=== PATIENT | male | born 1960 | race Caucasian/White ===

== ENCOUNTER → 2018-04-01 16:36 | Outpatient (CLI) | payer MEDICARE, SELFPAY ==
[2018-04-01 18:55] LABS: Free T4 (Free Thyroxine) 0.82 ng/dl (0.76-1.46); Thyroid Stimulating Hormone 20.22 uIU/ml (0.358-3.740)
[2018-04-05 13:29] LABS: Triiodothyronine (T3) Free 2.4 pg/mL (2.0-4.4)
== END ==
PROVIDERS: PCP Internal Medicine; Visit Provider Otolaryngology
DX: E03.9 Hypothyroidism, unspecified (principal); R22.1 Localized swelling, mass and lump, neck
CPT/HCPCS: 36415; 84439; 84443; 84481

== ENCOUNTER → 2018-10-11 11:54 | Outpatient (CLI) | payer MEDICARE, SELFPAY ==
[2018-10-11 15:56] LABS: Free T4 (Free Thyroxine) 1.25 ng/dl (0.76-1.46)
[2018-10-12 14:02] LABS: Triiodothyronine (T3) Free 3.1 pg/mL (2.0-4.4)
== END ==
PROVIDERS: Visit Provider Otolaryngology
DX: E03.9 Hypothyroidism, unspecified (principal)
CPT/HCPCS: 84439; 84443; 84481

== ENCOUNTER → 2018-10-30 13:06 | Outpatient (CLI) | payer MEDICARE, SELFPAY | PROVIDERS: PCP Internal Medicine; Visit Provider Otolaryngology | DX: G47.30 Sleep apnea, unspecified (principal) | CPT/HCPCS: 95806 ==

== ENCOUNTER → 2019-03-19 13:58 | Outpatient (CLI) | payer MEDICARE, SELFPAY | PROVIDERS: PCP Internal Medicine; Visit Provider Nurse Practitioner Family | DX: G47.30 Sleep apnea, unspecified (principal) | CPT/HCPCS: 94762 ==

== ENCOUNTER → 2019-06-05 12:50 | Outpatient (CLI) | payer MEDICARE, SELFPAY ==
--- NOTE | 2019-06-05 | ECG_ITS ---
APPROVED REPORT Exam: Resting ECG HR:66 bpm ECG Measurements Heart Rate 66 AXES MN 136 P 70 QRSd 92 QRS 101 QT 374 T -85 QTc 392 <Conclusion> Normal sinus rhythm Rightward axis ST & T wave abnormality, consider inferior ischemia Abnormal ECG Electronically signed by : Ministerio Odom, 06/06/2019 08:46:49
[2019-06-05 13:42] LABS: Basophils # 0.1 K/mm3 (0-0.2); Basophils % 0.6 % (0.1-2.0); Eosinophils # 0.2 K/mm3 (0.0-0.4); Eosinophils % 2.9 % (0.1-12.0); Hematocrit 43.2 % (42.0-52.0); Hemoglobin 14.9 g/dL (14.1-18.0); Lymphocytes # 3.1 K/mm3 (0.7-4.5); Mean Corpuscular HGB Conc 34.6 g/dL (31.8-35.4); Mean Corpuscular Hemoglobin 33.1 pg (27.0-31.2); Mean Corpuscular Volume 95.6 fl (80-94); Mean Platelet Volume 8.1 fl (7.4-10.4); Monocytes # 0.4 K/mm3 (0.1-1.0); Monocytes % 4.5 % (1.7-9.3); Neutrophils # 4.1 K/mm3 (1.8-7.8); Neutrophils % 51.9 % (37.0-80.0); Platelet Count 190 K/mm3 (142-424); Red Blood Count 4.51 M/mm3 (4.60-6.20); White Blood Count 7.8 K/mm3 (4.8-10.8)
[2019-06-05 15:07] LABS: Ferritin 154 ng/mL (8-388)
== END ==
PROVIDERS: Otolaryngology; Visit Provider Nurse Practitioner Family
DX: G47.33 Obstructive sleep apnea (adult) (pediatric) (principal); Z01.818 Encounter for other preprocedural examination; E83.10 Disorder of iron metabolism, unspecified
CPT/HCPCS: 36415; 82728; 85025; 93005

== ENCOUNTER → 2019-11-19 19:54 | Outpatient (CLI) | payer MEDICARE, SELFPAY | PROVIDERS: PCP Internal Medicine; Visit Provider Specialist | DX: G47.33 Obstructive sleep apnea (adult) (pediatric) (principal) | CPT/HCPCS: 95811 ==

== ENCOUNTER → 2019-11-20 14:37 | Outpatient (CLI) | payer MEDICARE, SELFPAY | PROVIDERS: PCP Internal Medicine; Visit Provider Internal Medicine Cardiovascular Disease | DX: R06.00 Dyspnea, unspecified | CPT/HCPCS: 36415; 83880; 93225 ==

== ENCOUNTER → 2019-11-28 13:30 | Outpatient (CLI) | payer MEDICARE, SELFPAY ==
--- NOTE | 2019-11-28 13:31 | CA_ITS ---
APPROVED REPORT EXAM: Comprehensive 2D, Doppler, and color-flow Echocardiogram It Programmer: Gisell Lopez RT(R) Ht: 5 ft 9 in Wt: 249lbs BSA: 2.27 BP: 128/78 mmHg Indications: CP, smoking, SOB, HTN, edema, hyperlipidemia, arrhythmia with sleep study 2D Dimensions LVOT 2.19 cm (M/F) 1.5-2.5 M-Mode Dimensions RVDd 1.79 cm (0.9-2.6) LVDd 5.91 cm (3.5-5.7) LVDs 4.38 cm (3.5-5.7) IVSd 0.98 cm (0.6-1.1) PWd 1.15 cm (0.6-1.1) EF (Teich) 50.10% FS 25.90% EDV (Teich) 173.90 mL ESV (Teich) 86.80 mL LV Diastology E/A Ratio 1.06 Mitral Valve MV A Velocity 54.00 (40-130 cm/s) Left Ventricle Left atrium is mildly enlarged, left ventricle is normal size, mild concentric left ventricular hypertrophy, borderline left ventricular systolic function, visually estimated ejection fraction 45 to 50% with no regional wall motion abnormality, grade 1 diastolic dysfunction seen without tissue Doppler evidence of raise left atrial pressure. Right Ventricle Right atrium and right ventricular mildly enlarged with normal contractility. Aortic Valve Aortic valve is minimally thickened and fibrosed. There is no aortic stenosis or aortic insufficiency. Mitral Valve Mitral valve is grossly normal, there is mild mitral regurgitation. Tricuspid Valve Tricuspid valve is grossly normal, there is mild tricuspid regurgitation, tricuspid regurgitation jet velocity is inadequate for calculation of the right ventricular systolic pressure. Pulmonic Valve Pulmonic valve is poorly visualized. Great Vessels Aortic root is normal size. Pericardium No significant pericardial effusion noted. Conclusion 1. Mild biatrial enlargement, normal left ventricular size, mild concentric left ventricular hypertrophy, borderline left ventricular systolic function, visually estimated ejection fraction of 45 to 50% with no regional wall motion abnormality, endocardial surfaces are poorly visualized, grade 1 diastolic dysfunction seen without tissue Doppler evidence of raise left atrial pressure. 2. Mildly enlarged right ventricle with normal contractility. 3. Mild mitral and tricuspid regurgitation. 4. No significant pericardial effusion noted. Electronically signed by : Rl Aparicio, 11/28/2019 14:22:48
--- NOTE | 2019-11-28 13:31 | US_ITS ---
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) Indications Claudication: Bilaterally Rest Pain: Bilaterally Current Smoker CAD Risk Factors Hypertension Hyperlipidemia Obesity Diabetes Current Smoker Pressures/Indices Right Indices Left Indices Brachial 138.00 mmHg Brachial 131.00 mmHg Low Thigh 133.00 mmHg 0.96 Low Thigh 117.00 mmHg 0.85 Calf 139.00 mmHg 1.01 Calf 132.00 mmHg 0.96 Ankle(PT) 153.00 mmHg 1.11 Ankle(PT) 127.00 mmHg 0.92 Ankle(DP) 149.00 mmHg 1.08 Ankle(DP) 137.00 mmHg 0.99 Digit 130.00 mmHg 0.94 Digit 125.00 mmHg 0.91 Findings RT JIMBO=1.1 LT JIMBO=0.9 RT TBI=0.9 LT TBI=0.9 Normal waveforms bilaterally Diminished pulses left lower extremity Conclusion No evidence significant arterial disease throughout the right and left lower extremities as evidenced by normal resting PVR waveforms and normal resting indices. Electronically signed by : David Michael MD 11/28/2019 14:47:35
== END ==
PROVIDERS: PCP Internal Medicine; Visit Provider Internal Medicine Cardiovascular Disease
DX: E11.9 Type 2 diabetes mellitus without complications (principal); E78.5 Hyperlipidemia, unspecified; I73.9 Peripheral vascular disease, unspecified; I10 Essential (primary) hypertension; I20.9 Angina pectoris, unspecified; I49.9 Cardiac arrhythmia, unspecified; R06.00 Dyspnea, unspecified; G47.33 Obstructive sleep apnea (adult) (pediatric); Z86.39 Personal history of other endocrine, nutritional and metabolic disease; Z79.84 Long term (current) use of oral hypoglycemic drugs
CPT/HCPCS: 93306; 93923

== ENCOUNTER → 2019-11-28 13:33 | Outpatient (CLI) | payer SELFPAY ==
--- NOTE | 2019-11-28 14:21 | CT_ITS ---
PROCEDURE: CT HEART W CALCIUM SCORE CLINICAL HISTORY: arrhthymia cp/dyspnea COMPARISON: No exams were available for comparison TECHNIQUE: Axial images obtained with sagittal and coronal reformats. All CT scans at the facility use one or more dose reduction, viz: automated exposure control, ma/kV adjustment per patient size (including targeted exams where dose is matched to indication, i.e. head), or iterative reconstruction technique. FINDINGS: The coronary artery calcium score is 2523 indicating extensive calcific plaque burden with very high cardiovascular disease risk. There is evidence of old granulomatous disease. Fibrotic changes are present in the lower lobes. Upper abdominal images show increased soft tissue density in the mid abdominal region. This may represent partial volume averaging from the pancreas and could be confirmed with unenhanced abdomen CT. This is slightly high for the body of the pancreas to be located IMPRESSION: . 1. Extensive calcific plaque burden with very high cardiovascular disease risk. 2. Increased soft tissue density in the upper abdomen possibly related to superior location of the body of the pancreas versus abdominal mass. Consider CT scan of the abdomen for further evaluation. Dictated by: David Michael MD 12/01/2019 15:14 Electronically signed by David Michael MD in [facility] 12/01/2019 15:14
== END ==
PROVIDERS: PCP Internal Medicine; Visit Provider Internal Medicine Cardiovascular Disease
DX: Z13.6 Encounter for screening for cardiovascular disorders (principal); E11.9 Type 2 diabetes mellitus without complications; E78.5 Hyperlipidemia, unspecified; G47.33 Obstructive sleep apnea (adult) (pediatric); I10 Essential (primary) hypertension; I20.9 Angina pectoris, unspecified; I49.9 Cardiac arrhythmia, unspecified; R06.00 Dyspnea, unspecified; Z86.39 Personal history of other endocrine, nutritional and metabolic disease
CPT/HCPCS: 75571

== ENCOUNTER → 2019-12-05 12:11 | Outpatient (CLI) | payer MEDICARE, SELFPAY ==
--- NOTE | 2019-12-05 12:18 | CT_ITS ---
PROCEDURE: CT ABDOMEN WO CON CLINICAL HISTORY: soft tissue density vs abd mass on recent CT chest Follow-up abnormal CT scan. Possible pancreatic mass COMPARISON: CT HEART W CALCIUM SCORE from 11/28/2019 TECHNIQUE: Axial images obtained with sagittal and coronal reformats. All CT scans at the facility use one or more dose reduction, viz: automated exposure control, ma/kV adjustment per patient size (including targeted exams where dose is matched to indication, i.e. head), or iterative reconstruction technique. FINDINGS: COPD in the lung bases. There are some atelectatic or fibrotic changes in the lingula. Coronary artery calcifications are present. There is mild hepatomegaly at 26 cm cephalad caudad. No focal liver lesion demonstrated. The spleen, adrenal glands, gallbladder, and pancreas have an unremarkable appearance. The soft tissue density noted in the upper abdomen on the coronary artery CT represents a slightly high position of the body of the pancreas. No obvious mass. There is a 3 mm nonobstructing stone in the mid polar region of the left kidney. There are few small retroperitoneal and portal lymph nodes which are nonspecific. There are postsurgical changes of the lumbar spine IMPRESSION: No acute finding. No evidence of pancreatic mass. Hepatomegaly. Nonobstructing left renal stone Dictated by: David Michael MD 12/07/2019 07:31 Electronically signed by David Michael MD in [facility] 12/07/2019 07:31
== END ==
PROVIDERS: PCP Internal Medicine; Visit Provider Internal Medicine Cardiovascular Disease
DX: R19.00 Intra-abdominal and pelvic swelling, mass and lump, unspecified site (principal)
CPT/HCPCS: 74150

== ENCOUNTER → 2020-07-14 09:42 | Outpatient (CLI) | payer MEDICARE, SELFPAY ==
[2020-07-14 10:35] VITALS: PULSE 71; PULSE 74
--- NOTE | 2020-07-14 11:09 | XR_ITS ---
PROCEDURE: XR CHEST 2V CLINICAL HISTORY: shortness of breath, wheezing, tobacco use, cough COMPARISON: No exams were available for comparison FINDINGS: The cardiomediastinal silhouette and pulmonary vascularity are within normal limits. There is hyperinflation with some attenuation of the peripheral pulmonary vessels consistent with COPD. No lobar consolidation or collapse. No acute bony abnormalities. IMPRESSION: Changes of COPD Dictated by: David Michael MD 07/14/2020 16:44 David Michael MD in [facility] 07/14/2020 16:44
== END ==
PROVIDERS: PCP Internal Medicine; Visit Provider Nurse Practitioner Family
DX: G47.33 Obstructive sleep apnea (adult) (pediatric) (principal); R05 Cough; R06.02 Shortness of breath; R06.2 Wheezing; Z72.0 Tobacco use
CPT/HCPCS: 71046; 94060; 94618; 94640; 94726; 94729; 94762

== ENCOUNTER → 2020-07-26 12:12 | Outpatient (CLI) | payer MEDICARE, SELFPAY ==
[2020-07-26 13:41] LABS: Free T4 (Free Thyroxine) 1.86 ng/dl (0.78-2.19)
[2020-07-26 13:55] LABS: Thyroid Stimulating Hormone 0.12 uIU/mL (0.465-4.68)
== END ==
PROVIDERS: Visit Provider Otolaryngology
DX: I49.9 Cardiac arrhythmia, unspecified (principal)
CPT/HCPCS: 36415; 84439; 84443

== ENCOUNTER → 2020-08-25 10:11 | Outpatient (CLI) | payer MEDICARE, SELFPAY ==
--- NOTE | 2020-08-25 | ECG_ITS ---
APPROVED REPORT Exam: Resting ECG HR:78 bpm ECG Measurements Heart Rate 78 AXES ND 170 P 83 QRSd 92 QRS 93 QT 370 T 55 QTc 421 Conclusion Normal sinus rhythm Rightward axis Borderline ECG Electronically signed by : Bandar Elmore, 08/25/2020 16:01:09
[2020-08-25 10:30] LABS: Basophils % 0.5 % (0.1-2.0); Eosinophils # 0.2 K/mm3 (0.0-0.4); Eosinophils % 2.3 % (0.1-12.0); Hematocrit 47.2 % (42.0-52.0); Lymphocytes % 24.8 % (10-50); Mean Corpuscular HGB Conc 31.9 g/dL (31.8-35.4); Mean Corpuscular Hemoglobin 30.6 pg (27.0-31.2); Mean Corpuscular Volume 95.9 fl (80-94); Mean Platelet Volume 8.1 fl (7.4-10.4); Monocytes # 0.5 K/mm3 (0.1-1.0); Monocytes % 5.9 % (1.7-9.3); Neutrophils # 5.4 K/mm3 (1.8-7.8); Neutrophils % 66.5 % (37.0-80.0); Platelet Count 157 K/mm3 (142-424); Red Blood Count 4.92 M/mm3 (4.60-6.20); Red Cell Distribution Width 14.2 % (11.5-17.5); White Blood Count 8.2 K/mm3 (4.8-10.8)
[2020-08-25 11:48] LABS: Anion Gap 15.4 mEq/L (5-15); Blood Urea Nitrogen 19 mg/dl (9-20); Calcium 9.8 mg/dl (8.4-10.2); Carbon Dioxide 26 mmol/L (22.0-30.0); Chloride 100 mmol/L (98-107); Estimated Glomerular Filt Rate 69 ml/min (>60); GFR (African American) 83 ML/MIN (>60); Glucose 285 mg/dl (74-100); Potassium 4.4 mmoL/L (3.5-5.1); Sodium 137 mmol/L (136-145)
[2020-08-25 15:04] LABS: Coronavirus 19 IgG Antibody Negative (Negative)
[2020-08-25 15:08] LABS: Coronavirus 19 IgM Antibody Positive (Negative)
[2020-08-25 17:19] LABS: Adenovirus,PCR Not Detected (NotDetected); Bordetella Pertussis Not Detected (NotDetected); Chlamydophila Pneumoniae, PCR Not Detected (NotDetected); Coronavirus 19, PCR Not Detected (NotDetected); Coronavirus 229E Not Detected (NotDetected); Coronavirus NL63 Not Detected (NotDetected); Coronavirus OC43 Not Detected (NotDetected); Coronovirus HKU1,PCR Not Detected (NotDetected); Human Metapneumovirus Not Detected (NotDetected); Influenza A, PCR Not Detected (NotDetected); Influenza AH1, 2009 Not Detected (NotDetected); Influenza AH1, PCR Not Detected (NotDetected); Influenza AH3,PCR Not Detected (NotDetected); Influenza B, PCR Not Detected (NotDetected); Mycoplasma Pneumoniae, PCR Not Detected (NotDetected); Parainfluenza 1, PCR Not Detected (NotDetected); Parainfluenza 2, PCR Not Detected (NotDetected); Parainfluenza 3, PCR Not Detected (NotDetected); Parainfluenza 4, PCR Not Detected (NotDetected); Respiratory Syncytial Virus Not Detected (NotDetected); Rhinovirus/Enterovirus Not Detected (NotDetected)
== END ==
PROVIDERS: PCP Internal Medicine; Visit Provider Otolaryngology
DX: Z01.818 Encounter for other preprocedural examination (principal); Q38.6 Other congenital malformations of mouth
CPT/HCPCS: 36415; 80048; 85025; 86328; 87581; 87633; 87798; 93005; U0003

== ENCOUNTER 2020-08-26 06:39 | Day surgery (SDC) | payer MEDICARE, SELFPAY ==
[2020-08-23 15:03] VITALS: BMI 35.6
[2020-08-26] VITALS (10 sets, daily range): BP systolic 118–142; BP diastolic 54–82; PULSE 69–84; RESP 16–18; TEMP 36.4–36.8; O2SAT 92–99
--- NOTE | 2020-08-26 08:43 | P.OP_ITS ---
Date of procedure: 08/26/20 Pre-op Diagnosis:: 1. Obstructive sleep apnea 2. Thickened elongated uvula 3. Ptosis free edge of soft palate Post-op Diagnosis:: same Procedure performed:: 1. Excision uvula 2. Uvulopalatopharyngoplasty (UPPP) Surgeon:: Adam Lopez MD ANNUAL GIVING DIRECTOR:: Cameron Holguin Anesthesia: GETA Estimated blood loss (mL): 5 Operative findings:: same Operative note:: With the patient under general anesthesia the Duran Davide gag was inserted. The uvula was examined and was extremely thickened and elongated. Using the harmonic scalpel the uvula was removed in entirety and submitted. The free edge of the soft palate was sagging on each side and accordingly using the harmonic scalpel the mucosal edges were excised on each side. Using a 2-0 Vicryl the free edges of the soft palate on each side were sewn together and the ptosis of the free edge of the soft palate was corrected. The base of the uvula where the uvula had been excised was repaired with 2-0 Vicryl. Bloodloss for all the procedure was less than 5 cc and stopped with suction cautery prior to the surgical repair. The patient tolerated procedure well was sent to recovery in good general condition. Condition: stable Disposition: PACU Complications:: none
--- NOTE | 2020-08-26 08:52 | HMH.ANESCL ---
[facility] Anesthesia Checklist - Patient Identification Patient Identification: Arm Band - Structural Data Admitted From: Home Planned Operative Procedure/s: Uvulectomy and Uvulopalatopharyngoplasty Consent for Planned Operative Procedure(s) Verified: Yes Verified Documents: Surgical Consent, History and Physical - NPO Status Verified Time NPO: 00:00 - Additional verifications Anesthesia Reactions: No Hx Blood Transfusions: No Blood Transfusion Reaction: No - Airway Assessment C-Spine Mobility Assessed: Yes (mp2) TMJ Mobility Assessed: Yes Dentition: Edentulous - Neurological Assessment Level of Consciousness: Awake, Alert - Anesthesia Plan Anesthesia Risk discussed: Yes Anesthesia Plan: Verified ASA Class: III Anesthesia Type: General [facility] History I have reviewed the patient's past medical history: Yes Medical History: Reports:: Depression, Diabetes Mellitus Type 2, Hyperlipidemia, Hypertension, MRSA (2017), Seizures Denies:: Cancer, Diabetes Mellitus Type 1, Internal Pacemaker *Have you ever received a pneumonia vaccine?: Yes *Have you received a flu vaccine this season?: No Other Medical History: Reports: Arthritis, Thyroid Disease, Other. Denies: Blood Transfusion Reaction Anesthesia experience/problems:: nac Laterality Cases: Right: Arthroscopy Shoulder, Bilateral: Carpal Tunnel Release Other Surgeries: Yes: Appendectomy, Cardiac Catheterization, Colonoscopy, EGD, Other. No: Pacemaker Amputation: No Fractures: No - *Social History Last grade of school completed: High school graduate Smoking Status: Current every day smoker Tobacco Type: cigarettes # Packs/Day (cigarettes): 2 #Yrs smoked (if former smoker): 40 Alcohol Intake: current Alcohol Intake Frequency:: holidays/special occasions only Substance Use Type: denies use *Occupational Status:: disabled Housing: house Household Members: spouse *Travel in the last 8 weeks: None - Psychiatric History Pschychiatric History:: Reports:: Depression Family Hx:: Coronary Artery Disease, Cancer
--- NOTE | 2020-08-26 08:53 | HMH.ANESI ---
[facility] Anesthesia Record Part I Intake, IV Amount: 900 Estimated blood loss (mL): 5 Urine output (mL): 0 Blood Pressure: 142/81 SaO2: 96 Pulse Rate: 84 Respiratory Rate: 16 Temperature: 97.5 F Patient is:: Drowsy, Stable Stable to PACU at:: 08:50
[2020-08-26 09:05] LABS: POC Glucose,Bedside 195 (70-110)
--- NOTE | 2020-08-27 06:34 | HMH.ANESII ---
[facility] Anesthesia Record Part II Discharge Time: 09:20 Destination: Surgical Day Care (OP Surgery) PACU nurse assessment reviewed?: Yes Patient Condition:: Good Anesthesia Complications:: None Swallowing reflex intact?: Yes Cyanosis?: No Blood Pressure: 130/54 Pulse Rate: 75 Temperature: 98.2 F Mental Status: Alert & Oriented Pain level:: 8 Nausea and/or vomitting:: None Intake, IV Amount: 25
[2020-08-27 06:35] VITALS: BP 130/54; PULSE 75; TEMP 36.8
[2020-08-27 07:16] LABS: POC Glucose,Bedside 225 (70-110)
== END 2020-08-26 10:06 | disposition home or self-care (01) ==
LOC: OR 06:40
PROVIDERS: PCP Internal Medicine; Visit Provider Otolaryngology
PROC: (CPT 42140; principal; 2020-08-26 08:30)
DX: G47.33 Obstructive sleep apnea (adult) (pediatric) (principal); K13.29 Other disturbances of oral epithelium, including tongue; E11.9 Type 2 diabetes mellitus without complications; E78.5 Hyperlipidemia, unspecified; I10 Essential (primary) hypertension; R56.9 Unspecified convulsions; Z86.14 Personal history of Methicillin resistant Staphylococcus aureus infection; F32.9 Major depressive disorder, single episode, unspecified; M19.90 Unspecified osteoarthritis, unspecified site; E07.9 Disorder of thyroid, unspecified; Z87.39 Personal history of other diseases of the musculoskeletal system and connective tissue; Z90.49 Acquired absence of other specified parts of digestive tract
CPT/HCPCS: 42140; 42145; 82962; 88302; 96374; 96375; J2405

== ENCOUNTER → 2021-01-21 08:28 | Outpatient (CLI) | payer MEDICARE, SELFPAY ==
--- NOTE | 2021-01-21 08:29 | CA_ITS ---
APPROVED REPORT EXAM: Comprehensive 2D, Doppler, and color-flow Echocardiogram [place] Erector: Ruth Ann Emmanuel CRT Ht: 5 ft 9 in Wt: 245lbs BSA: 2.25 BP: 125/73 mmHg Indications: Shortness of Breath, Obesity, Palpitations, CAD, Hyperlipidemia, Hypertension/HDD 2D Dimensions LVOT 2.03 cm (M/F) 1.5-2.5 M-Mode Dimensions RVDd 2.31 cm (0.9-2.6) LA Diam 4.09 cm (1.9-4.0) LVDd 6.02 cm (3.5-5.7) Ao Diam 3.92 cm (2.0-3.7) LVDs 4.13 cm (3.5-5.7) IVSd 1.20 cm (0.6-1.1) PWd 0.78 cm (0.6-1.1) EF (Teich) 58.40% FS 31.40% EDV (Teich) 181.40 mL TAPSE 2.54 (<1.7) ESV (Teich) 75.50 mL LV Diastology E Decel Time 160.00 (160-240 msec) E/A Ratio 0.34 MED E' 10.10 (< 7 cm/sec) MED A' 13.80 cm/s E'/MED E' Ratio 6.91 (>14) LAT E' 10.20 (<10 cm/sec) LAT A' 7.60 cm/s E/LAT E' Ratio 6.84 (>14) Aortic Valve AO Peak GR. 6.40 mmHg Mitral Valve MV A Velocity 203.00 (40-130 cm/s) E/A Ratio 0.34 MV Decel. Time 160.00 (160-240 ms) Pulmonary Valve PV Peak Velocity 53.00 (50-150 cm/s) Tricuspid Valve TR P. Velocity 108.00 cm/s RAP Estimate 10.00 mmHg RVSP 14.70 mmHg Left Ventricle Left atrium is qualitatively mildly enlarged, left ventricle is normal size, left ventricle wall thickness is upper limit of the normal, there is preserved left ventricular systolic function, visually estimated ejection fraction is 50% with no regional wall motion abnormality, diastolic parameters are inconclusive. Right Ventricle Right atrium and right ventricle are normal size and contractility. Aortic Valve Aortic valve is minimally thickened and fibrosed, there is no aortic stenosis or aortic insufficiency. Mitral Valve Mitral valve grossly normal, there is trace mitral regurgitation. Tricuspid Valve Tricuspid grossly normal, there is trace tricuspid regurgitation, tricuspid regurgitation jet velocity is inadequate for calculation of the right ventricular systolic pressure. Pulmonic Valve Pulmonic valve is poorly visualized. Great Vessels Aortic root is normal size. Pericardium No significant pericardial effusion noted. Conclusion 1. Technically difficult study because of the patient fact in poor acoustic windows. 2. Normal left ventricular size, preserved left ventricular systolic function, visually estimated ejection fraction 50% with no regional wall motion abnormality, endocardial surfaces are poorly visualized, diastolic parameters are inconclusive. 3. Trace mitral and tricuspid regurgitation. 4. No significant pericardial effusion noted. Electronically signed by : Rl Aparicio, 01/22/2021 13:44:34
--- NOTE | 2021-01-21 09:21 | US_ITS ---
PROCEDURE: US THYROID CLINICAL INDICATION: hypothyroid COMPARISON: No exams were available for comparison FINDINGS: Right lobe: 4.2 x 1.7 x 1.3 centimeters Left lobe: 4.2 x 1.4 x 1.2 centimeters Isthmus: 0.4 centimeters Additional findings: Both lobes of thyroid gland demonstrates heterogeneous echogenicity. No focal lesions identified on the background of thyroid echotexture. Vascularity appears within normal limits. IMPRESSION: Heterogeneous echotexture of thyroid gland. No focal lesions within the limitations of the study. Dictated by: Marilyn Tamez 01/21/2021 12:53 Marilyn Tamez in [facility] 01/21/2021 12:53
== END ==
LOC: RT 08:29
PROVIDERS: PCP Internal Medicine; Visit Provider Nurse Practitioner Family
DX: E11.51 Type 2 diabetes mellitus with diabetic peripheral angiopathy without gangrene (principal); E78.2 Mixed hyperlipidemia; G47.33 Obstructive sleep apnea (adult) (pediatric); I10 Essential (primary) hypertension; I25.10 Atherosclerotic heart disease of native coronary artery without angina pectoris; R00.2 Palpitations; R06.02 Shortness of breath; E03.9 Hypothyroidism, unspecified; Z79.84 Long term (current) use of oral hypoglycemic drugs
CPT/HCPCS: 76536; 93306

== ENCOUNTER → 2021-01-24 11:17 | Outpatient (CLI) | payer MEDICARE, SELFPAY ==
[2021-01-24 12:41] LABS: Ferritin 34.6 ng/ml (17.9-464)
== END ==
PROVIDERS: Visit Provider Specialist
DX: I49.9 Cardiac arrhythmia, unspecified (principal)
CPT/HCPCS: 36415; 82728

== ENCOUNTER → 2021-02-03 12:42 | Outpatient (CLI) | payer MEDICARE, SELFPAY ==
[2021-02-03 14:24] LABS: Free T4 (Free Thyroxine) 1.61 ng/dl (0.78-2.19)
[2021-02-03 14:38] LABS: Thyroid Stimulating Hormone 0.46 uIU/mL (0.465-4.68)
[2021-02-04 06:21] LABS: Thyroid Peroxidase Antibodies 339 IU/mL (0-34)
[2021-02-05 12:24] LABS: Thyroid Stimulating Immunoglob <0.10 IU/L (0.00-0.55)
== END ==
PROVIDERS: Visit Provider Otolaryngology
DX: E03.9 Hypothyroidism, unspecified (principal); I49.9 Cardiac arrhythmia, unspecified
CPT/HCPCS: 36415; 84439; 84443; 84445; 86376

== ENCOUNTER → 2021-05-09 15:20 | Outpatient (CLI) | payer MEDICARE, SELFPAY ==
[2021-05-09 17:07] LABS: Prostate Specific Ag Screen 0.4 ng/ml (0.0-4.0)
== END ==
PROVIDERS: Visit Provider Urology
DX: Z12.5 Encounter for screening for malignant neoplasm of prostate (principal)
CPT/HCPCS: 36415; G0103

== ENCOUNTER → 2021-07-14 11:38 | Outpatient (CLI) | payer MEDICARE, SELFPAY ==
[2021-07-14 13:03] LABS: Chloride 97 mmol/L (98-107)
[2021-07-14 13:04] LABS: Potassium 5.1 mmoL/L (3.5-5.1); Sodium 139 mmol/L (136-145)
[2021-07-14 13:06] LABS: Blood Urea Nitrogen 15 mg/dl (9-20); Estimated Glomerular Filt Rate 57 ml/min (>60); GFR (African American) 68 ML/MIN (>60)
[2021-07-14 13:07] LABS: Anion Gap 19.1 mEq/L (5-15); Calcium 9.7 mg/dl (8.4-10.2); Carbon Dioxide 28 mmol/L (22.0-30.0); Glucose 292 mg/dl (74-100)
[2021-07-14 13:15] LABS: NT Pro Brain Natriuretic Pep. 37.2 pg/mL (0-125)
== END ==
PROVIDERS: Visit Provider Internal Medicine Cardiovascular Disease
DX: E11.51 Type 2 diabetes mellitus with diabetic peripheral angiopathy without gangrene (principal); E78.2 Mixed hyperlipidemia; G47.33 Obstructive sleep apnea (adult) (pediatric); I25.10 Atherosclerotic heart disease of native coronary artery without angina pectoris; R00.2 Palpitations; R06.02 Shortness of breath; I50.9 Heart failure, unspecified; Z79.84 Long term (current) use of oral hypoglycemic drugs; I11.0 Hypertensive heart disease with heart failure
CPT/HCPCS: 36415; 80048; 83880

== ENCOUNTER → 2021-07-20 08:49 | Outpatient (CLI) | payer MEDICARE, SELFPAY ==
[2021-07-20 10:43] LABS: Anion Gap 17.7 mEq/L (5-15); Blood Urea Nitrogen 18 mg/dl (9-20); Carbon Dioxide 26 mmol/L (22.0-30.0); Chloride 98 mmol/L (98-107); Estimated Glomerular Filt Rate 69 ml/min (>60); GFR (African American) 83 ML/MIN (>60); Glucose 246 mg/dl (74-100); Potassium 4.7 mmoL/L (3.5-5.1); Sodium 137 mmol/L (136-145)
== END ==
PROVIDERS: Visit Provider Nurse Practitioner Family
DX: E11.9 Type 2 diabetes mellitus without complications (principal); E78.5 Hyperlipidemia, unspecified; G47.33 Obstructive sleep apnea (adult) (pediatric); I10 Essential (primary) hypertension; I25.10 Atherosclerotic heart disease of native coronary artery without angina pectoris; R60.9 Edema, unspecified; Z79.84 Long term (current) use of oral hypoglycemic drugs
CPT/HCPCS: 36415; 80048

== ENCOUNTER → 2021-08-12 12:41 | Outpatient (CLI) | payer MEDICARE, SELFPAY ==
[2021-08-12 15:02] LABS: Anion Gap 18.3 mEq/L (5-15); Blood Urea Nitrogen 14 mg/dl (9-20); Calcium 9.4 mg/dl (8.4-10.2); Carbon Dioxide 25 mmol/L (22.0-30.0); Chloride 97 mmol/L (98-107); Estimated Glomerular Filt Rate 69 ml/min (>60); GFR (African American) 83 ML/MIN (>60); Glucose 277 mg/dl (74-100); Potassium 4.3 mmoL/L (3.5-5.1); Sodium 136 mmol/L (136-145)
== END ==
PROVIDERS: Visit Provider Internal Medicine Cardiovascular Disease
DX: E11.51 Type 2 diabetes mellitus with diabetic peripheral angiopathy without gangrene (principal); E78.2 Mixed hyperlipidemia; G47.33 Obstructive sleep apnea (adult) (pediatric); I10 Essential (primary) hypertension; I25.10 Atherosclerotic heart disease of native coronary artery without angina pectoris; R00.2 Palpitations; R06.02 Shortness of breath; R60.9 Edema, unspecified; Z79.84 Long term (current) use of oral hypoglycemic drugs
CPT/HCPCS: 36415; 80048

== ENCOUNTER → 2021-09-02 12:25 | Outpatient (CLI) | payer MEDICARE, SELFPAY ==
[2021-09-02 14:43] LABS: Free Thyroxine Index 2.5 ug/dL (5.93-13.13); T4 (Thyroxine) 7.2 ug/dl (5.53-11.0); Triiodothryronine (T3) Uptake 35 % (23.5-40.5)
[2021-09-02 14:56] LABS: Thyroid Stimulating Hormone 1.87 uIU/mL (0.465-4.68)
== END ==
PROVIDERS: Visit Provider Internal Medicine Cardiovascular Disease
DX: E11.9 Type 2 diabetes mellitus without complications (principal); E78.5 Hyperlipidemia, unspecified; G47.33 Obstructive sleep apnea (adult) (pediatric); I10 Essential (primary) hypertension; I25.10 Atherosclerotic heart disease of native coronary artery without angina pectoris; R00.2 Palpitations; R06.00 Dyspnea, unspecified; R60.9 Edema, unspecified; R61 Generalized hyperhidrosis; Z79.84 Long term (current) use of oral hypoglycemic drugs; Z79.899 Other long term (current) drug therapy
CPT/HCPCS: 36415; 84436; 84443; 84479

== ENCOUNTER → 2021-09-06 11:09 | Outpatient (CLI) | payer MEDICARE, SELFPAY ==
--- NOTE | 2021-09-06 11:10 | US_ITS ---
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 Lopez RT(R) Indications PAD Current Smoker History of Smoking Risk Factors Hypertension Diabetes History of Smoking Pressures/Indices Right Indices Left Indices Brachial 128.00 mmHg Brachial 124.00 mmHg Low Thigh 108.00 mmHg 0.84 Low Thigh 99.00 mmHg 0.77 Calf 122.00 mmHg 0.95 Calf 111.00 mmHg 0.87 Ankle(PT) 135.00 mmHg 1.05 Ankle(PT) 114.00 mmHg 0.89 Ankle(DP) 127.00 mmHg 0.99 Ankle(DP) 110.00 mmHg 0.86 Digit 28.00 mmHg 0.22 Digit 77.00 mmHg 0.60 Findings RT JIMBO=1.05 LT JIMBO=0.89 RT TPI=0.22 LT TPI=0.60 Conclusion RT JIMBO=1.05 LT JIMBO=0.89 RT TPI=0.22 LT TPI=0.60 Low rt TBI suggesting small vessel disease Mild arterial disease on the left Electronically signed by : David Michael MD 09/07/2021 19:40:53
== END ==
PROVIDERS: PCP Internal Medicine; Visit Provider Internal Medicine Cardiovascular Disease
DX: I70.213 Atherosclerosis of native arteries of extremities with intermittent claudication, bilateral legs (principal)
CPT/HCPCS: 93923

== ENCOUNTER → 2021-11-17 19:52 | Outpatient (CLI) | payer MEDICARE, SELFPAY | LOC: SL 19:54 | PROVIDERS: PCP Internal Medicine; Visit Provider Nurse Practitioner Family | DX: G47.33 Obstructive sleep apnea (adult) (pediatric) (principal) | CPT/HCPCS: 95811 ==

== ENCOUNTER → 2021-11-18 10:22 | Outpatient (CLI) | payer MEDICARE, SELFPAY ==
[2021-11-18 11:19] LABS: Alanine Aminotransferase 31 U/L (12-78); Albumin Level 4.2 g/dl (3.5-5.0); Alkaline Phosphatase 95 U/L (38-126); Aspartate Amino Transferase 35 U/L (17-59); Bilirubin,Direct 0.2 mg/dl (0.0-0.4); Bilirubin,Indirect 0.5 mg/dL (0.0-0.9); Bilirubin,Total 0.7 mg/dl (0.2-1.3); Bilirubin,Unconjugated 0.5 mg/dL (0.0-1.1); Chol/HDL Ratio 5.2 (1-3.5); Cholesterol 157 mg/dl (140-200); HDL Cholesterol 30 mg/dl (40-60); Total Protein,Serum 7.1 g/dl (6.3-8.2)
[2021-11-18 11:28] LABS: Triglycerides 434 mg/dl (30-150)
[2021-11-18 11:37] LABS: Direct LDL Cholesterol 89.47 mg/dL (100-129)
== END ==
PROVIDERS: PCP Internal Medicine; Visit Provider Internal Medicine Cardiovascular Disease
DX: E11.9 Type 2 diabetes mellitus without complications (principal); E78.5 Hyperlipidemia, unspecified; G47.33 Obstructive sleep apnea (adult) (pediatric); I10 Essential (primary) hypertension; I25.10 Atherosclerotic heart disease of native coronary artery without angina pectoris; I42.9 Cardiomyopathy, unspecified; I73.9 Peripheral vascular disease, unspecified; K21.9 Gastro-esophageal reflux disease without esophagitis; Z79.84 Long term (current) use of oral hypoglycemic drugs
CPT/HCPCS: 36415; 80061; 80076

== ENCOUNTER → 2021-12-28 12:53 | Outpatient (CLI) | payer MEDICARE, SELFPAY ==
[2021-12-28 13:50] VITALS: PULSE 74; PULSE 80
--- NOTE | 2021-12-28 14:09 | CT_ITS ---
FINAL REPORT CLINICAL HISTORY: Lung cancer screening FINDINGS: Low-Dose Chest CT CTDI vol (mGy): 2.90 DLP (mGy-cm): 96.90 Axial images were obtained from the lung apex to the mid abdomen by computed tomography. Low-dose protocol was utilized. FINDINGS: CHEST: There is no axillary adenopathy. There is no hilar or mediastinal adenopathy. The heart is proper size. There is severe coronary artery calcifications. There is no pericardial or pleural effusion. Limited images of the upper abdomen are unremarkable. Lung window images demonstrate mild scarring. There is mild emphysema. There are several small pulmonary nodules with one of the largest in the left upper lobe measuring 5 mm, well seen on image 21. There is calcified granuloma in the right upper lobe. IMPRESSION: S modifier: Severe coronary artery calcifications. Lung RADS category 2S. Recommend 12 month follow-up low-dose chest CT. Reviewed, Interpreted and Dictated by Steve Quezada III, MD Transcribed by Chio Stringer Authenticated by Steve Quezada III, MD on 12/28/2021 04:02:31 PM [facility]
== END ==
PROVIDERS: PCP Internal Medicine; Visit Provider Internal Medicine Pulmonary Disease
DX: F17.210 Nicotine dependence, cigarettes, uncomplicated (principal); R06.02 Shortness of breath
CPT/HCPCS: 71271; 94060; 94618; 94640; 94727; 94729

== ENCOUNTER → 2022-05-09 14:42 | Outpatient (CLI) | payer MEDICARE, SELFPAY ==
[2022-05-09 17:26] LABS: Prostate Specific Ag, Diagnost 0.184 ng/ml (0.0-4.0)
== END ==
PROVIDERS: PCP Internal Medicine; Visit Provider Urology
DX: N40.1 Benign prostatic hyperplasia with lower urinary tract symptoms (principal); Z12.5 Encounter for screening for malignant neoplasm of prostate
CPT/HCPCS: 36415; 84153

== ENCOUNTER → 2022-05-30 08:35 | Outpatient (CLI) | payer MEDICARE, SELFPAY ==
--- NOTE | 2022-05-30 08:36 | CT_ITS ---
FINAL REPORT TECHNIQUE: Postcontrast images of the pelvis and extremities were performed by computed tomography. Extensive 3-D reconstruction images were performed. A CTA was performed. This study was performed with techniques to keep radiation doses as low as reasonably achievable (ALARA). Individualized dose reduction techniques using automated exposure control or adjustment of mA and/or kV according to the patient''s size were employed. CLINICAL HISTORY: claudication FINDINGS: Pelvis: There is bladder wall thickening, likely inflammatory. Postoperative changes seen in the lower lumbar spine. There is a small right inguinal hernia containing fat. Small bilateral knee joint effusions are identified. CTA: There is moderate irregular plaque in the abdominal aorta without evidence of dissection. There is calcified plaque in the common and external iliac arteries without significant stenosis. The internal iliac arteries are patent. The SMA, celiac axis, and USMAN are patent. The renal arteries are patent. RIGHT lower extremity: There is calcified plaque in the SFA with several mild stenoses. The popliteal artery is patent. There is three-vessel runoff to the distal lower leg. LEFT lower extremity: There is calcified plaque in the SFA with several mild stenoses. The popliteal artery is patent. There is three-vessel runoff to the distal lower leg. IMPRESSION: No significant stenosis or major branch occlusion. Reviewed, Interpreted and Dictated by Steve Quezada III, MD Transcribed by Helena Bliss Authenticated and [facility]
[2022-05-30 09:02] LABS: Blood Urea Nitrogen 20 mg/dl (9-20); Estimated Glomerular Filt Rate 62 ml/min (>60); GFR (African American) 75 ML/MIN (>60)
== END ==
LOC: RAD 08:36
PROVIDERS: PCP Internal Medicine; Visit Provider Internal Medicine Cardiovascular Disease
DX: E78.5 Hyperlipidemia, unspecified (principal); I10 Essential (primary) hypertension; I25.10 Atherosclerotic heart disease of native coronary artery without angina pectoris; R93.1 Abnormal findings on diagnostic imaging of heart and coronary circulation; I70.213 Atherosclerosis of native arteries of extremities with intermittent claudication, bilateral legs
CPT/HCPCS: 36415; 73701; 82565; 84520; Q9967

== ENCOUNTER → 2023-01-02 09:06 | Outpatient (CLI) | payer MEDICARE, SELFPAY ==
[2023-01-02 10:43] LABS: Chloride 99 mmol/L (98-107)
[2023-01-02 10:44] LABS: Potassium 4.4 mmoL/L (3.5-5.1); Sodium 137 mmol/L (136-145)
[2023-01-02 10:47] LABS: Anion Gap 19.4 mEq/L (5-15); Blood Urea Nitrogen 30 mg/dl (9-20); Calcium 9.1 mg/dl (8.4-10.2); Carbon Dioxide 23 mmol/L (22.0-30.0); Estimated Glomerular Filt Rate 56 ml/min (>60); GFR (African American) 68 ML/MIN (>60); Glucose 226 mg/dl (74-100)
== END ==
PROVIDERS: PCP Internal Medicine; Visit Provider Physician Assistant
DX: J44.9 Chronic obstructive pulmonary disease, unspecified (principal); R06.09 Other forms of dyspnea
CPT/HCPCS: 36415; 80048

== ENCOUNTER → 2023-01-17 13:15 | Outpatient (CLI) | payer MEDICARE, SELFPAY ==
[2023-01-17 15:06] LABS: Anion Gap 18.5 mEq/L (5-15); Blood Urea Nitrogen 24 mg/dl (9-20); Carbon Dioxide 22 mmol/L (22.0-30.0); Chloride 98 mmol/L (98-107); Estimated Glomerular Filt Rate 56 ml/min (>60); GFR (African American) 68 ML/MIN (>60); Glucose 299 mg/dl (74-100); Potassium 4.5 mmoL/L (3.5-5.1); Sodium 134 mmol/L (136-145)
== END ==
PROVIDERS: PCP Internal Medicine; Visit Provider Nurse Practitioner Family
DX: E78.2 Mixed hyperlipidemia; I10 Essential (primary) hypertension; I20.9 Angina pectoris, unspecified; R06.02 Shortness of breath; R06.09 Other forms of dyspnea; Z86.39 Personal history of other endocrine, nutritional and metabolic disease
CPT/HCPCS: 36415; 80048

== ENCOUNTER → 2023-01-29 13:28 | Outpatient (CLI) | payer MEDICARE, SELFPAY ==
--- NOTE | 2023-01-29 13:28 | CT_ITS ---
FINAL REPORT CLINICAL HISTORY: lung cancer screening smoker, 2 ppd x 45 years copd COMPARISON: 01/17/2022 FINDINGS: Low-Dose Chest CT Axial images were obtained from the lung apex to the mid abdomen by computed tomography. Low-dose protocol was utilized. CTDI vol (mGy): 2.90 DLP (mGy-cm): 107.86 There is no axillary adenopathy. There is no hilar or mediastinal adenopathy. The heart is proper size. Severe coronary artery calcification is again noted. There is no pericardial or pleural effusion. Lung window images demonstrate mild changes of emphysema with mild pulmonary scarring. There is a stable 3 mm left upper lobe nodule. There is a stable 4 mm lateral left upper lobe nodule on image 26. There is a calcified granuloma in the right upper lobe. No new mass or nodule is identified. Limited images of the upper abdomen are unremarkable. IMPRESSION: Stable nodules as above. No new mass or nodule identified. Lung RADS category 2. Recommend 12 month follow-up low-dose chest CT. Reviewed, Interpreted and Dictated by Steve Quezada III, MD Transcribed by Chio Stringer Authenticated and . [facility]
== END ==
PROVIDERS: PCP Internal Medicine; Visit Provider Internal Medicine Pulmonary Disease
DX: Z87.891 Personal history of nicotine dependence (principal); Z12.2 Encounter for screening for malignant neoplasm of respiratory organs
CPT/HCPCS: 71271

== ENCOUNTER 2024-08-26 11:45 | Outpatient (CLI) | payer MEDICARE, SELFPAY | END 2024-08-26 23:59 | disposition home or self-care (01) | LOC: RT 11:46 | PROVIDERS: PCP Nurse Practitioner Family; Visit Provider Physician Assistant | DX: R00.2 Palpitations (principal) | CPT/HCPCS: 93225; 93227 ==

== ENCOUNTER 2024-08-28 12:30 | Outpatient (CLI) | payer MEDICARE, SELFPAY | END 2024-08-28 23:59 | disposition home or self-care (01) | LOC: RT 12:31 | PROVIDERS: PCP Nurse Practitioner Family; Visit Provider Physician Assistant | DX: R00.2 Palpitations (principal); R06.09 Other forms of dyspnea; R60.9 Edema, unspecified; R06.02 Shortness of breath; I20.9 Angina pectoris, unspecified | CPT/HCPCS: 93270 ==

== ENCOUNTER 2024-09-05 11:11 | Outpatient (CLI) | payer MEDICARE, SELFPAY ==
--- NOTE | 2024-09-05 11:13 | CA_ITS ---
APPROVED REPORT EXAM: Comprehensive 2D, Doppler, and color-flow Echocardiogram Sheet Metal Technician: Ana Lopez RDCS Ht: 5 ft 9 in Wt: 210lbs BSA: 2.11 BP: 128/71 mmHg Indications: SOA,CM,CAD,AMALIA,COPD,HTN,HLP M-Mode Dimensions RVDd 1.23 cm (0.9-2.6) LA Diam 2.83 cm (1.9-4.0) LVDd 6.86 cm (3.5-5.7) LVDs 4.70 cm (3.5-5.7) IVSd 0.78 cm (0.6-1.1) PWd 0.72 cm (0.6-1.1) EF (Teich) 58.00% FS 31.50% EDV (Teich) 244.00 mL TAPSE 2.39 (<1.7) ESV (Teich) 102.40 mL LV Diastology E Decel Time 193 (160-240 msec) E/A Ratio 1.3 Mitral Valve MV E Max Hayden. 65.0 (40-130 cm/s) MV A Velocity 51.0 (40-130 cm/s) E/A Ratio 1.26 MV PHT 57.0 ms Left Ventricle The left ventricle is normal size. The left ventricular systolic function is mildly reduced. There is normal left ventricular wall thickness. There is moderate hypokinesis of the basal to mid septal LV wall. The left ventricular diastolic function is normal. LVEF is 45%. Right Ventricle The right ventricle is mildly dilated. The right ventricular systolic function is normal. Atria The left atrium is mildly dilated. The right atrium is mildly dilated. There is no Doppler evidence of interatrial shunt. Aortic Valve The aortic valve is mildly thickened. There is no aortic valvular stenosis. No aortic regurgitation is present. Mitral Valve The mitral valve is normal in structure. No evidence of mitral valve stenosis. Mild mitral regurgitation. Tricuspid Valve Tricuspid valve is grossly normal in structure and function. Trace tricuspid regurgitation. There is insufficient TR jet to estimate RVSP. Pulmonic Valve The pulmonary valve is normal in structure. Trace pulmonic regurgitation. Great Vessels The aortic root is normal in size. IVC is normal in size and collapses >50% with inspiration. Pericardium There is no pericardial effusion. Other Information Study Quality: Fair Conclusion Mildly reduced LV systolic function (LVEF 45%). Moderate hypokinesis of the basal to mid septal LV wall. Mildly dilated RV with normal RV function. Biatrial dilation. Mild MR. Electronically signed by : Francisca Gilliland MD 09/15/2024 13:02:14
== END 2024-09-05 23:59 | disposition home or self-care (01) ==
LOC: RT 11:12
PROVIDERS: PCP Nurse Practitioner Family; Visit Provider Physician Assistant
DX: I51.7 Cardiomegaly (principal); R06.09 Other forms of dyspnea; R60.9 Edema, unspecified; R00.2 Palpitations; R06.02 Shortness of breath; I20.9 Angina pectoris, unspecified
CPT/HCPCS: 93306

== ENCOUNTER 2024-12-01 08:26 | Outpatient (CLI) | payer MEDICARE, SELFPAY ==
--- NOTE | 2024-12-01 08:31 | XR_ITS ---
FINAL REPORT TECHNIQUE: Bone densitometry calculations of the lumbar spine and left hip were obtained. CLINICAL HISTORY: DISORDER OF BONE DENSITY AND STRUCTURE COMPARISON: None FINDINGS: Using the left forearm, the bone mineral density of the spine is 0.811 g/cm2, corresponding to T-score of -0.1. Using the left hip, the bone mineral density of the femoral neck is 1.009 g/cm2, corresponding to a T-score of 0.6. Using the right hip, the bone mineral density of the femoral neck is 1.094 g/cm?, corresponding to a T-score of 1.2. NOTE: T-score: Standard deviation compared with peak bone mass of young adult mean. *Following the recommendations of the International Society of Bone densitometry, classification of hip BMD is based on the lower of two T-scores; total hip or femoral neck. IMPRESSION: Normal bone mineral density of the lumbar spine and bilateral hips. Reviewed, Interpreted and Dictated by Carlos Rich MD Transcribed by Charu Salas Authenticated and [facility]
== END 2024-12-01 23:59 | disposition home or self-care (01) ==
LOC: RAD 08:27
PROVIDERS: PCP Nurse Practitioner Family; Visit Provider Nurse Practitioner Family
DX: M85.88 Other specified disorders of bone density and structure, other site (principal)
CPT/HCPCS: 77080

== ENCOUNTER 2025-05-25 12:53 | Outpatient (CLI) | payer MEDICARE, SELFPAY ==
--- OUTSIDE RECORDS SUMMARY | 2025-05-05 12:13 | XMS_ITS | Encounter Summary ---
Author Organization [facility] Address [address] [place] [address] Care Team Providers Care Adoption Coordinator Name Role Phone Ministerio Rosas MD Unavailable [phone] Khadijah Dolan APRN Primary Care Provider [phone] Reason for Referral * Imaging (Routine) - Closed Specialty Diagnoses / Procedures Referred By Loki tyler Referred To Contact Radiology Diagnoses Urothelial carcinoma of bladder without invasion of muscle Procedures CT Urogram Ministerio Rosas MD [address] [address] Phone: tel: fax: Referral ID Status Reason Start Date Expiration Date Visits Re quested Visits Authorized [id number] Closed 02/03/2025 08/05/2026 1 1 Reason for Visit * Imaging (Routine) - Closed Specialty Diagnoses / Procedures Referred By Loki tyler Referred To Contact Radiology Diagnoses Urothelial carcinoma of bladder without invasion of muscle Procedures CT Urogram Ministerio Rosas MD [address] [address] Phone: tel: fax: Referral ID Status Reason Start Date Expiration Date Visits Re quested Visits Authorized [id number] Closed 02/03/2025 08/05/2026 1 1 Encounter Details Date Type Department Care Team (Latest Contact Info) Description 05/05/2025 12:13 PM EDT - 05/05/2025 11:59 PM EDT Hospital Encounter [facility] Radiology [address] [place] [address] Urothelial carcinoma of bladder without invasion of muscle Discharge Disposition: Home or Self Care Social History Tobacco Use Types Packs/Day Years Used Date Smoking Tobacco: Every Day Cigarettes 2 45 Smokeless Tobacco: Current Chew Alcohol Use Standard Drinks/Week Comments Not Currently 0 (1 standard drink = 0.6 oz pur e alcohol) < 1 drink per week PHQ-2 Answer Date Recorded Patient Health Questionnaire-2 Score 0 05/05/2025 PHQ-9 Answer Date Recorded Patient Health Questionnaire-9 Score 0 05/05/2025 AUDIT-C Answer Date Recorded Q1: How often do you have a drink containing alcohol? Never 05/05/2025 Q2: How many drinks containi ng alcohol do you have on a typical day when you are drinking? Patient does not drink Q3: How often do you have si x or more drinks on one occasion? Never 05/05/2025 PHQ-2A Answer Date Recorded Patient Health Questionnaire-2 Score 0 09/21/2023 Sex and Gender Information Value Date Recorded Sex Assigned at Not on file Legal Sex Male 8:17 PM EDT Gender Identity Not on file Sexual Orientation Not on file documented as of this encounter Functional Status * AUDIT-C Score Answer Date of Assessment Author 0 05/05/2025 2:56 PM Lorraine Low * Question Answer Date of Assessment Author Q1: How often do you have a drink containing alcohol? Never 05/05/2025 2:56 PM Jaxson Low Q2: How many drinks containing alcohol do you have on a typical day when you are drinking? Patient does not drink 05/05/2025 2:56 PM Jaxson Low Q3: How often do you have six or more drinks on one occasion? Never 05/05/2025 2:56 PM Jaxson Low * Over the past 2 weeks, how often have you been bothered by any of the following problems? Question Answer Date of Assessment Author Little interest or pleasure in doing things Not at all 05/05/2025 2:57 PM Jaxson Low Feeling down, depressed, or hopeless Not at all 05/05/2025 2:57 PM Jaxosn Low Patient Health Questionnaire -2 Score 0 05/05/2025 2:57 PM Jaxson Low * Question Answer Date of Assessment Author Trouble falling or staying a sleep, or sleeping too much Not at all 05/05/2025 2:57 PM Jaxson Low Feeling tired or having basim le energy Not at all 05/05/2025 2:57 PM Jaxson Low Poor appetite or overeating Not at all 05/05/2025 2: 57 PM Jaxson Low Feeling bad about yourself - or that you are a failure or have let yourself or your family down Not at all 05/05/2025 2:57 PM Drew Low Trouble concentrating on thi ngs, such as reading the newspaper or watching television Not at all 05/05/2025 2:57 PM Jaxson Low Moving or speaking so slowly that other people could have noticed? Or the opposite - being so fidgety or restless that you have been moving around a lot more than usual. Not at all 05/05/2025 2:57 PM Jaxson Low Thoughts that you would be b radha off or hurting yourself in some way Not at all 05/05/2025 2:57 PM Jaxson Low Patient Health Questionnaire -9 Score 0 05/05/2025 2:57 PM Jaxson Low * If you checked off any problems on this questionnaire so far, Question Answer Date of Assessment Author How difficult have these problems made it for you to do your work, take care of things at home, or get along with other people? Not difficult at all 05/05/2025 2:57 PM Jaxson Low documented as of this encounter Medications at Time of Discharge albuterol 108 (90 Base) MCG/ACT inhaler INHALE 2 PUFFS FOUR TIMES DAILY NEEDED FOR SHORTNESS OF BREATH OR WHEEZING ammonium lactate (Lac-Hydrin) 12 % lotion Apply to bilateral elbows BID 05/14/2024 aspirin 81 MG chewable tablet Chew 1 tablet (81 mg) 1 (one) time each day. atorvastatin (Lipitor) 10 MG tablet TAKE 1 TABLET BY MOUTH ONCE A DAY FOR CHOLESTEROL 06/08/2023 bisoprolol (Zebeta) 5 MG tablet Take 1 tablet (5 mg) by mouth 1 (one) time each day. 03/27/2023 buprenorphine-na loxone (Suboxone) 8-[address] 1 tablet under the tongue 2 (two) times a day. Only takes it once a day clindamycin (Cleocin) 300 MG capsule TAKE 1 CAPSULE BY MOUTH THREE TIMES DAILY FOR 10 DAYS. 01/02/2024 Continuous Blood Gluc Icu Staff Nurse (FreeStyle Noemi 3 [place]) device 02/01/2024 Continuous Blood Gluc Sensor (FreeStyle Noemi 3 Sensor) misc 02/01/2024 DULoxetine (Cymbalta) [address] capsule TAKE ONE (1) CAPSULE EVERY DAY BY ORAL ROUTE. 08/26/2024 ergocalciferol (Vitamin D-2) 1.25 MG (94616 UT) capsule famotidine (Pepcid) 20 MG tablet Take 1 tablet (20 mg) by mouth 1 (one) time each day. fluticasone (Flonase) 50 MCG/ACT nasal spray Administer 2 sprays into each nostril 1 (one) time each day. 03/27/2023 Lantus SoloStar 100 UNIT/ML injection pen INJECT FIVE (5) UNITS EVERY DAY BY SUBCUTANEOUS ROUTE AT BEDTIME.PEN EXPIRES IN 28 DAYS 07/28/2024 levothyroxine (Synthroid, Levoxyl) 200 MCG tablet Take 1 tablet (200 mcg) by mouth 1 (one) time each day. lisinopril 40 MG tablet Take 1 tablet (40 mg) by mouth 1 (one) time each day. 04/25/2023 metFORMIN XR (Glucophage-XR) 500 MG 24 hr tablet Take 2 tablets (1,000 mg) by mouth 2 (two) times a day. 05/01/2023 nitrofurantoin, macrocrystal-mon ohydrate, (Macrobid) 100 MG capsule Take 1 capsule (100 mg) by mouth 2 (two) times a day. 20 capsule 03/07/2024 omeprazole (PriLOSEC) [address] capsule Take 1 capsule (40 mg) by mouth every night. 04/26/2023 oxybutynin (Ditropan) 5 MG tablet tamsulosin (Flomax) 0.4 MG 24 hr capsule TAKE 1 CAPSULE BY MOUTH EVERY DAY WITH DINNER 30 capsule 11 08/27/2024 5 Wixela Inhub 250-50 MCG/ACT diskus inhaler INHALE ONE (1) PUFF TWICE A DAY BY INHALATION ROUTE FOR 30 DAYS. 08/05/2024 documented as of this encounter Miscellaneous Notes * Iram Rodriguez - Aundrea Chung M - 05/05/2025 12:28 PM EDT Images from the original note were not included. 1639 Caring for Yourself after Contrast Imaging If you had ORAL contrast: ? You can go back to your normal diet and activities as tolerated. ? Drink plenty of fluids, unless told otherwise. If you had IV contrast: ? You can go back to your normal diet and activities as tolerated. ? Drink plenty of fluids, unless told otherwise. ? Leave a bandage on the site for 30 minutes (where the IV was inserted or blood was drawn). If you had Intravesical (bladder) contrast: ? Return to normal diet and activity. What you need to know about delayed reaction to IV contrast What is IV Contrast? ? Contrast is a dye that is put into your body through an IV. ? It is used for imaging scans such as CT scans and MRIs. ? The contrast makes blood vessels, organs and other parts of your body show up better on the scan. What do I need to do after IV contrast? ? Drink lots of fluids. This will help flush the contrast out of your system. ? Drink 2-3 extra glasses or bottles of water within 4 hours of your scan. What is a contrast reaction? ? A contrast reaction is a bad side effect from the contrast dye. ? It is rare but it does happen. ? They can be mild - such as sneezing, itching, or hives. ? They can be severe - such as trouble breathing, throat swelling, and irregular heart beat. When do these reactions happen? ? They often happen right after the contrast is injected. ? Some happen hours after going home. Go to the nearest Emergency Department right away if you have any of these symptoms after you leavethe clinic or hospital. ? Sneezing ? Itching in your mouth, throat, eyes, ears, or skin ? Rash or hives ? Throwing up or stomach sickness ? High heart rate or ?racing? of your heart ? Feeling dizzy or woozy ? Feeling short of breath or like you can?t take a deep breath ? Feeling very anxious for no other reason It is very important that these reactions be treated. Tell the doctor or nurse that you are having a reaction to IV contrast dye. Do not ignore any sign of a reaction! All reactions must be assessed by a doctor. Call 911 if you are alone and your reaction is more than mild sneezing or itching. If you have a mild reaction, call to speak with a Radiologist, explain that you havehad a contrast reaction, as this needs to be added to your medical record. documented in this encounter Plan of Treatment Upcoming Encounters Date Type Department Care Team (Late st Contact Info) Description 06/23/2025 8:00 AM EDT Office Visit [facility] Urology [address] [place] [address] Ministerio Rosas MD [address] [place] [address] Scheduled Orders Name Type Priority Associated Diagnoses Order Schedule POCT creatinine venous clear green (no-gel) Point of Care Testing - Docked Devices Routine Once (Lab) for 1 Occurrences starting 05/05/2025 until 05/05/2025 documented as of this encounter Procedures Procedure Name Priority Date/Time Associated Diagnosis Comments CT UROGRAM Routine 05/05/2025 1:23 PM EDT Urothelial carcinoma of bladder without invasion of muscle POCT CREATININE ISTAT UNSOLICITED RESULTS Routine 05/05/2025 12:29 PM EDT documented in this encounter Results * CT Urogram (05/05/2025 1:23 PM EDT) Anatomical Region Laterality Modality Abdomen, Pelvis Computed Tomogra phy Impressions 05/05/2025 4:59 PM EDT Enlarged lymph node inferior to the left renal vein, which is increased in size compared to prior study. Metastatic disease should be considered. Recommend follow up with PET/CT or biopsy for further evaluation. Focal papillary necrosis in the left interpolar region, with adjacent fat stranding. CRITICAL RESULT: No. COMMUNICATION: Per this written report. By electronically signing this report, I, the attending physician, attest that I have personally reviewed the images/data for the above examination(s) and agree with the final edited report. Drafted by Efren Leblanc MD on 05/05/2025 2:45 PM Final report signed by Cory Green MD on 05/05/2025 4:59 PM Narrative 05/05/2025 4:59 PM EDT CLINICAL INDICATION: Bladder cancer, noninvasive, monitor TECHNIQUE: Multiple pre-contrast axial CT images were obtained from lower chest through pubic symphysis, followed by multiple axial CT images of abdomen and pelvis following split bolus administration of IV contrast, Omnipaque 300, 150 mL. Reformatted images in the coronal and sagittal planes were generated from the axial data set to facilitate diagnostic accuracy. Total DLP (Dose-Length Product): 895.31 mGy.cm. Please note: The reported value represents the total of one or more individual components during the CT acquisition on this date and at this time, and as such, the same value may appear in more than one CT report depending on the interpreting/reporting physicians. COMPARISON: CT urogram performed June 29, 2023 FINDINGS: Kidneys, Ureters, Bladder: Precontrast imaging demonstrates no evidence of urinary tract calculi. After the administration of intravenous contrast material both kidneys concentrate and excrete contrast promptly and symmetrically. The right pelvicalyceal system opacifies normally without evidence of soft tissue filling defects. No suspicious renal parenchymal mass lesions. The left collecting system is notable for a focus of papillary necrosis in the interpolar region. Additionally, there is adjacent fat stranding at the left interpolar level. The bilateral ureters are normal in course and caliber. The urinary bladder is grossly unremarkable. Remaining Solid Abdominal and Pelvic Organs: No suspicious or acute findings. Granulomatous changes of the spleen. GI Tract/Mesentery/Peritoneum: The large and small bowel appear normal in caliber without evidence of inflammation. Free Fluid: No ascites. Lymph Nodes and Vasculature: 1.6 cm lymph node inferior to the left renal vein (series 5 image 32) previously 1.3 cm. Aortoiliac vasculature atherosclerotic, and tortuous, with calcific atherosclerosis of the bilateral iliac arteries. Musculoskeletal and Body Wall: Surgical changes compatible with L3-L5 posterior fusion, with severe degenerative changes at the level of L2-L3, and L5-S1. Lower Chest: No suspicious findings. Procedure Note Cory Green MD - 05/05/2025 CLINICAL INDICATION: Bladder cancer, noninvasive, monitor TECHNIQUE: Multiple pre-contrast axial CT images were obtained from lower chestthrough pubic symphysis, followed by multiple axial CT images of abdomenand pelvis following split bolus administration of IV contrast, [id number], 150 mL. Reformatted images in the coronal and sagittal planes weregenerated from the axial data set to facilitate diagnostic accuracy. Total DLP (Dose-Length Product): 895.31 mGy.cm. Please note: The reportedvalue represents the total of one or more individual components during theCT acquisition on this date and at this time, and as such, the same valuemay appear in more than one CT report depending on theinterpreting/reporting physicians. COMPARISON: CT urogram performed June 29, 2023 FINDINGS: Kidneys, Ureters, Bladder: Precontrast imaging demonstrates no evidence ofurinary tract calculi. After the administration of intravenous contrastmaterial both kidneys concentrate and excrete contrast promptly andsymmetrically. The right pelvicalyceal system opacifies normally withoutevidence of soft tissue filling defects. No suspicious renal parenchymalmass lesions. The left collecting system is notable for a focus ofpapillary necrosis in the interpolar region. Additionally, there isadjacent fat stranding at the left interpolar level. The bilateral uretersare normal in course and caliber. The urinary bladder is grosslyunremarkable. Remaining Solid Abdominal and Pelvic Organs: No suspicious or acutefindings. Granulomatous changes of the spleen. GI Tract/Mesentery/Peritoneum: The large and small bowel appear normal incaliber without evidence of inflammation. Free Fluid: No ascites. Lymph Nodes and Vasculature: 1.6 cm lymph node inferior to the left renalvein (series 5 image 32) previously 1.3 cm. Aortoiliac vasculatureatherosclerotic, and tortuous, with calcific atherosclerosis of thebilateral iliac arteries. Musculoskeletal and Body Wall: Surgical changes compatible with L3-A4hunoeamec fusion, with severe degenerative changes at the level of L2-L3,and L5-S1. Lower Chest: No suspicious findings. IMPRESSION: Enlarged lymph node inferior to the left renal vein, which is increased insize compared to prior study. Metastatic disease should be considered.Recommend follow up with PET/CT or biopsy for further evaluation. Focal papillary necrosis in the left interpolar region, with adjacent fatstranding. CRITICAL RESULT: No. COMMUNICATION: Per this written report. By electronically signing this report, I, the attending physician, attalisaat I have personally reviewed the images/data for the aboveexamination(s) and agree with the final edited report. Drafted by Efren Leblanc MD on 05/05/2025 2:45 PM Final report signed by Cory Green MD on 05/05/2025 4:59 PM us Ministerio Rosas MD IMG CT PROCEDURES Final Resul t * POCT creatinine (05/05/2025 12:29 PM EDT) Creatinine, Point of Care 1.0 0.7 - 1.2 mg/dL 05/05/2025 12:31 PM EDT [facility] POCT eGFR 85 mL/min/1. 73m*2 05/05/2025 12:31 PM EDT [facility] Stockroom Attendant ID Aundrea Chung 05/05/2025 12:31 PM EDT [facility] Device ID [id number] 05/05/2025 12:31 PM EDT [facility] Comment 05/05/2025 12:31 PM EDT [facility] Comment:Testing performed on i-STAT at the point of care. Reported eGFRcr in mL/min/1.73m2 is based the CKD-EPI 2020 equation that does not use a race coefficient. Blood Venous blood specimen / Unknown 05/05/2025 12:29 PM EDT 05/05/2025 12:31 PM EDT Generic Provider Poct LAB POINT OF CARE TEST DOCKED DEVICE UNSOLICITED RESULTS Final Result [facility] [address] [place] [address] [facility] [address] [place] [address] documented in this encounter Visit Diagnoses Diagnosis Urothelial carcinoma of bladder without invasion of muscle documented in this encounter Administered Medications Inactive Administered Medications - up to 3 most recent administrations Medication Order MAR Action Action Date Dose Rate Site iohexol (OMNIPaque) 300 MG/ML injection 150 mL 150 mL, Intravenous, Once in imaging, 1 dose, Starting on 05/05/25 at 1217, Until 05/05/25 at 1303, Routine, Imaging Protocol Orders Given 05/05/2025 1:03 PM EDT 150 mL documented in this encounter Additional Health Concerns Infection Onset Date Last Indicated 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 Assessment Noted Time PHQ-9 Depression Total Score: 0 05/05/20 2:57 PM EDT A fall risk assessment has been complete d for the patient 05/05/2025 2:57 PM EDT A Body Mass Index follow-up plan has been documented for the patient 02/08/2025 9:59 PM EDT documented as of this encounter Care Teams Adoption Coordinator Relationship Specialty Start Date End Date Khadijah Dolan APRN [address] [place] [address] PCP - General 05/04/25 Ministerio Rosas MD [address] [facility] [[email or web address] [address] [place] [address] Surgeon Urology 09/23/24 documented as of this encounter
--- OUTSIDE RECORDS SUMMARY | 2025-05-25 12:56 | XMS_ITS | Encounter Summary ---
Author Organization [employer] ([place], [place], [place], [place]) Address [address] [place] [address] Care Team Providers Care Child And Youth Program Assistant Name Role Phone Unavailable Primary Care Provider Unavailabl e Encounter Details Date Type Department Care Team (Late st Contact Info) Description 10/29/2020 Transcribed Document [facility] [place] [facility] [place] [address] ProviderFarhan MD [address] [place] [address] Social History Tobacco Use Types Packs/Day Years Used Date Smoking Tobacco: Never Assessed Comments Unknown Sex and Gender Information Value Date Recorded Sex Assigned at Female 04/20/2022 12:25 PM CDT Legal Sex Male 5:58 PM CDT Gender Identity Female 04/20/2022 12:25 PM CDT Sexual Orientation Not on file documented as of this encounter Miscellaneous Notes * Cerner Conversion Note - Historical ProviderMD - 10/29/2020 3:35 PM POWER TOOL REPAIRER Treatment Intervention, PT Entered On: 10/31/2020 9:54 EST Performed On: 10/31/2020 9:49 EST by Ronan Chase PHYSICAL RUDOLPH General Information, PT Visit Type, PT : Treatment Note Patient Orders : Order Date Order Ordering 10/29/2020 10:34 Physical Therapy Eval and Treat Ordered By: ADDIE VELIZ MD-SNU 10/29/2020 15:35 PT Additional Treatment Ordered By: KATINA LIANG PT Active Diagnoses : No Qualifying Diagnoses Therapy Diagnosis, PT : decreased mobility due to back surgery Admission Date : 10/29/2020 12:20 Personal Devices : Personal Devices No Devices Recorded Assistive Devices : Assistive Devices No Devices Recorded Precautions in Place : Fall prevention measures Ronan Chase PHYSICAL THERAPIST - 10/31/2020 9:49 EST General Status Patient Received Status : Sitting edge of bed Treatment Start Time : 10/31/2020 9:27 EST Patient Left Status : Up in chair, RN/PCT informed, All needs met and within reach RN/PCT Informed Comment : Nurse Haskins Treatment End Time : 10/31/2020 9:45 EST Treatment Time : 18 Minute(s) Actual Treatment Time : 18 Minute(s) Ronan Chase PHYSICAL THERAPIST - 10/31/2020 9:49 EST Functional Mobility Mobility Grid Sit to Stand : Rehab Modified independence Bed to Chair : Rehab Modified independence Stand to Sit : Rehab Modified independence Ronan Chase PHYSICAL THERAPIST - 10/31/2020 9:49 EST Gait Training/Assessment, PT Weight Bearing Status Maintained : Yes Weight Bearing Status : Full Gait Assistance Level : Independent, modified Walking Distance : 175 feet with up/down 8 tall platform in gym simulate home step then sit rest 2 min, next walked 300 feet including up/down ramp end of 6th floor hallway Ambulatory Devices : Gait belt, Walker, front wheel, Other: LSO on Ronan Chase PHYSICAL THERAPIST - 10/31/2020 9:49 EST Cognitive Treatment, PT Orientation : Oriented x 4 Ronan Chase PHYSICAL THERAPIST - 10/31/2020 9:49 EST Edu Topics Physical Therapy Education Grid Bed Mobility Training : Verbalizes understanding Gait Training : Verbalizes understanding Safety : Verbalizes understanding (Comment: Able to explain BLT's back care [Ronan Chase PHYSICAL THERAPIST - 10/31/2020 9:49 EST] ) Transfer Training : Verbalizes understanding Ronan Chase PHYSICAL THERAPIST - 10/31/2020 9:49 EST Teaching/Learning Assessment Barriers To Learning : None evident Learning Style Preferences Patient : None Ronan Chase PHYSICAL THERAPIST - 10/31/2020 9:49 EST Indication Assesessment, PT Physical Therapy Indicated : Yes Ronan Chase PHYSICAL THERAPIST - 10/31/2020 9:49 EST Plan of Care, PT PT Tx Plan/Goals Established w Patient : Yes Ronan Chase PHYSICAL THERAPIST - 10/31/2020 9:49 EST Fpc Goals Mobility/Bed Mobility LTG PT Grid Goal #1 Goal #2 Activity : Supine to sit Sit to stand Assist : Independent, complete Independent, modified Equipment : Walker, front wheel Date to Meet : 11/05/2020 EST 11/05/2020 EST Goal Status : Progressing, continue Goal met Ronan Chase PHYSICAL THERAPIST - 10/31/2020 9:49 EST Ronan Chase PHYSICAL THERAPIST - 10/31/2020 9:49 EST Ambulation LTG Grid Goal #1 Device : Walker, front wheel Distance : 300' Assist : Independent, modified Date to Meet : 11/05/2020 EST Goal Status : Goal met Ronan Chase PHYSICAL THERAPIST - 10/31/2020 9:49 EST Stairs LTG Grid Goal #1 Device : None Number of Steps : 2 Handrail(s) : One handrail Assist : Independent, modified Date to Meet : 11/05/2020 EST Goal Status : Goal met Ronan Chase PHYSICAL THERAPIST - 10/31/2020 9:49 EST Treatment Note Subjective Comment : He states ready to go home today. Assessment : Displays all needed mobility to allow discharge home upon medical discharge Plan for Treatment : plan for dischareg owen with today Ronan Chase PHYSICAL THERAPIST - 10/31/2020 9:49 EST Pain Assessment Pain Scaled Used : 0-10 Pain scale Duration : 5 Location : Back, lower Ronan Chase PHYSICAL THERAPIST - 10/31/2020 9:49 EST Image 1 - Images currently included in the form version of this document have not been included in the text rendition version of the form. [facility] PT Charges Gait Training Each 15 Min : 1 Ronan Chase PHYSICAL THERAPIST - 10/31/2020 9:49 EST documented in this encounter Plan of Treatment Not on file documented as of this encounter Visit Diagnoses Not on filedocumented in this encounter
--- OUTSIDE RECORDS SUMMARY | 2025-05-25 12:56 | XMS_ITS | Encounter Summary ---
Author Organization [employer] ([place], [place], [place], [place]) Address [address] [place] [address] Care Team Providers Care Supervisor Fusing Room Name Role Phone Unavailable Primary Care Provider Unavailabl e Encounter Details Date Type Department Care Team (Late st Contact Info) Description 10/29/2020 Transcribed Document [facility] [place] Family Medicine [address] [place] [address] ProviderFarhan MD [address] [place] [address] Social History Tobacco Use Types Packs/Day Years Used Date Smoking Tobacco: Never Assessed Comments Unknown Sex and Gender Information Value Date Recorded Sex Assigned at Female 04/20/2022 12:25 PM CDT Legal Sex Male 5:58 PM CDT Gender Identity Female 04/20/2022 12:25 PM CDT Sexual Orientation Not on file documented as of this encounter Miscellaneous Notes * Cerner Conversion Note - Farhan ProviderMD - 10/29/2020 8:39 AM JOURNEYMAN PIPEFITTER [facility] Main OR Preop Summary Primary Physician: ADDIE VELIZ MD-SNU Finalized Date/Time: 10/29/20 12:44:39 Pt. Name: FRANSISCO CRAVEN/Sex: 1960 Male Med Rec #: [id number] Physician: ADDIE VELIZ MD-TANVIR Financial #: [id number] Pt. Type: I Room/Bed: 647/1 Admit/Disch: 10/29/20 12:20:00 - Institution: [facility] PreOp Case Times Entry 1 In Preop 10/29/20 06:05:00 Ready for Holding n/a Room Patient Ready for 10/29/20 07:31:00 Surgery Patient Out of Preop 10/29/20 08:11:00 Patient Out of n/a Holding Room Last Modified By: PEDRO Briceño RN 10/29/20 12:44:37 [facility] PreOp Case Times Audit 10/29/20 12:44:37 Sausage Grinder: CHRISTY Modifier: WILSONDL <+> 1 Patient Out of Preop 10/29/20 07:31:08 Sausage Grinder: CHRISTY Modifier: WILSONDL <+> 1 Patient Ready for Surgery Finalized By: PEDRO Briceño, RN Document Signatures Signed By: PEDRO Briceño RN 10/29/20 12:44 Electronically signed by Kailey [facility] Conversion Timber Sizer Operator Cerner at 02/08/2023 12:23 PM CDT documented in this encounter Plan of Treatment Not on file documented as of this encounter Visit Diagnoses Not on filedocumented in this encounter
--- OUTSIDE RECORDS SUMMARY | 2025-05-25 12:56 | XMS_ITS | Encounter Summary ---
Author Organization [employer] ([place], [place]) Address [address] [place] [address] Care Team Providers Care Airline Attendant Name Role Phone Unavailable Primary Care Provider Unavailabl e Encounter Details Date Type Department Care Team (Late st Contact Info) Description 10/29/2020 Transcribed Document [facility] [place] Family Medicine [address] [place] [address] ProviderFarhan MD [address] [place] [address] Social History Tobacco Use Types [...] - Farhan ProviderMD - 10/29/2020 8:39 AM ANALYST FOOD AND BEVERAGE [facility] Main OR PACU Summary Primary Physician: ADDIE VELIZ MD-[facility] Finalized Date/Time: 10/29/20 12:13:32 Pt. Name: FRANSISCO CRAVEN/Sex: 1960 Male Med Rec #: [id number] Physician: ADDIE VELIZ MD-SN Financial #: [id number] Pt. Type: I Room/Bed: / Admit/Disch: 09/22/20 10:37:00 - Institution: [facility] Main OR PACU I Case Times Entry 1 In PACU I 10/29/20 10:38:00 Ready for PACU 10/29/20 12:00:00 Discharge Discharge from PACU 10/29/20 12:00:00 I Last Modified By: DANIELLE CLANCY RN 10/29/20 12:13:15 Finalized By: DANIELLE CLANCY, RN Document Signatures Signed By: DANIELLE CLANCY RN 10/29/20 12:13 Electronically signed by Kailey [facility] Conversion Pipe Line Repairer Cerner at 02/08/2023 12:20 PM CDT documented in this encounter Plan of Treatment Not on file documented as of this encounter Visit Diagnoses Not on filedocumented in this encounter
--- OUTSIDE RECORDS SUMMARY | 2025-05-25 12:56 | XMS_ITS | Encounter Summary ---
Author Organization [employer] ([place], [place], [place], [place]) Address [address] [place] [address] Care Team Providers Care Metal Control Worker Name Role Phone Unavailable Primary Care Provider Unavailabl e Encounter Details Date Type Department Care Team (Late st Contact Info) Description 10/26/2020 Transcribed Document [facility] [place] Family Medicine [facility] [place] [address] ProviderFarhan MD [address] [place] [address] Social History Tobacco Use Types [...] Cerner Conversion Note - Historical ProviderMD - 10/26/2020 9:18 AM ABLE BODIED WATCHMAN PAT Adult Entered On: 10/26/2020 9:22 EST Performed On: 10/26/2020 9:18 EST by Toni Kirby Rn Vital Measurements Temperature Source : Temporal artery scanning Temperature, Fahrenheit : 97.3 Deg F Clinical Temperature, C : 36.3 Deg C Pulse Method : Pulse Oximetry Peripheral Pulse Rate : 80 bpm Blood Pressure Location : Arm, right upper Systolic Blood Pressure : 112 mmHg Diastolic Blood Pressure : 72 mmHg Oxygen Saturation : 95 % Oxygen Therapy Mode : Room air Jolene Lino Rn - 10/27/2020 10:51 EST Pain Assessment Pain Assessment : Initial assessment Pain Scale Goal : 3 Pain Scale Used : 0-10 Scale Jolene Lino Rn - 10/27/2020 10:51 EST Height and Weight, Clinical Dosing Height Source : Estimated Height Entry Format : Konjekt Height, Feet : 5 ft(Converted to: 152 cm, 60 Inch) Height, Inches : 9 Inch(Converted to: 0 ft 9 Inch, 22.86 cm) Clinical Height : 175.26 cm Weight Source : Standing scale Weight Entry Format : Kasbeer Clinical Dosing Weight : 106.36 kg Weight, Pounds : 234 lb Body Surface Area (BSA) : 2.21 m2 Body Mass Index : 34.6 kg/m2 (HI) Mcgill Body Weight : 70 kg Jolene Lino Rn - 10/27/2020 10:51 EST Health Histories Smoking Status : 10 or more cigarettes (1/2 pack or more)/day in last 30 days Smokeless Tobacco Status : Never Desires Tobacco Cessation Medication : No Reason for No Tobacco Cessation Medication : Refuses FDA approved medications Toni Kirby Rn - 10/26/2020 9:18 EST Social History (As Of: 10/26/2020 09:22:19 EST) Tobacco: Smoking Status Current every day smoker. Five or more cigarettes per day Smoking Frequency Within Last 30 Days. Use in Last 12 Months: Cigarettes. Years of Use: 40. Packs/Tins Daily: 2. Used Tobacco, but Quit No. (Last Updated: 03/29/2017 12:20:52 EDT by MARIA EUGENIA BRASHER RN) 10 or more cigarettes (1/2 pack or more)/day in last 30 days Smoking Status. Never Smokeless Tobacco Status. None Smokeless Tobacco Use History. Years of Use: 45. Packs/Tins Daily: 2. Last Used: October 2020. Second Hand Smoke Exposure: Yes. (Last Updated: 10/26/2020 09:18:45 EST by Toni Kirby, Rn) Alcohol: Alcohol Use History No. Use in Last 12 Months: No. (Last Updated: 10/26/2020 09:18:45 EST by Toni Kirby, Rn) Substance Abuse: Drug Use Hx: No. Use in Last 12 Months: No. (Last Updated: 10/26/2020 09:18:45 EST by Toni Kirby, Rn) Infectious Disease History Has the patient ever been tested for COVID-19? : Yes, Patient stated results pending Date of COVID-19 test known? : Yes Date of COVID-19 Test : 10/27/2020 EST Does patient have symptoms of COVID-19? : No COVID19 Screening : No Experiencing Infectious Disease Symptoms : No symptoms Physical contact outside [place] in the last 30 days : No Infectious Disease History : Other: osteomylitis in right index finger post dog bite Tuberculosis Symptoms : None Jolene Lino Rn - 10/27/2020 10:51 EST COVID19 PreProcedure Screening Has patient been isolated since the test : Yes Exposed to COVID19 symptoms since test? : No PEDRO Briceño RN - 10/29/2020 6:56 EST Is this an Emergent or Add on Procedure? : No Date PreProcedure COVID-19 test known? : Yes Date of PreProcedure COVID-19 : 10/27/2020 EST Jolene Lino Rn - 10/27/2020 10:51 EST Anesthesia/Transfusion History Family History of Anesthesia Reaction : No prior transfusion(s) Transfusion History : Prior anesthesia without reaction Family History of Anesthesia Reaction : None Toni Kirby Rn - 10/26/2020 9:18 EST Functional Assessment Functional ADL Evaluation Index EBN Bathing : Independent (2) Dressing : Independent (2) Toileting : Independent (2) Transferring Bed or Chair : Independent (2) Continence : Independent (2) Feeding : Independent (2) Toni Kirby Rn - 10/26/2020 9:18 EST ADL Index Score : 12 Toni Kirby Rn - 10/26/2020 9:18 EST Advance Directive Patient has Advance Directive *Q : No, patient refuses Advance Directive information Toni Kirby Rn - 10/26/2020 9:18 EST Spiritual/Cultural Needs Any Spiritual/Cultural Needs or Requests : Yes Spiritual/Cultural Needs Comment : 10/29/20 Mandaeism Preference : Lutheran Spiritual/Cultural Needs Comment : 10/29/20 Toni Kirby Rn - 10/26/2020 9:18 EST [place] Suicide Severity Rating Scale (C-SSRS) CSSRS Past Month Wish to be : No CSSRS Past Month Suicidal Thoughts : No CSSRS Lifetime Suicide Behavior : No Suicide Severity Rating Score : 0 Suicide Severity Rating : No Additional Care Required at this time Toni Kirby Rn - 10/26/2020 9:18 EST Psychosocial History Do You Have a History of the Following? : Anxiety, Depression Currently in Unsafe Situation : No Toni Kirby Rn - 10/26/2020 9:18 EST General Info Arrived From : Home Patient Arrival Date/Time : 10/29/2020 6:05 EST PEDRO Briceño RN - 10/29/2020 6:56 EST Preferred Name : Bucky Mode of Arrival on Unit : Ambulatory Toni Kirby Rn - 10/26/2020 9:18 EST Legal Guardian : Unaccompanied PEDRO Briceño RN - 10/29/2020 6:56 EST Support Person/Patient Linotypist : Yes Support Person/Pt Rep Name : Taylor Silvestre - Support Person/Pt Rep Contact Information : [phone] Want Family/Rep/Phys Notified of Admit : No Toni Kirby Rn - 10/26/2020 9:18 EST Emergency Contact #1 : Taylor Konrad Emergency Contact #1 ` Emergency Contact #1 Relationship : ` Jolene Lino Rn - 10/27/2020 10:51 EST Emergency Contact #2 : ` Emergency Contact #2 Phone Number : ` Emergency Contact #2 Relationship : ` Primary Language : Tajik Preferred Communication Mode : Verbal Communication Barrier : None Developer Programmer Analyst Needed : No Toni Kirby Rn - 10/26/2020 9:18 EST Timur Scale Timur Sensory Perception : No impairment Timur Moisture : Rarely moist Timur Activity : Walks occasionally Timur Mobility : Slightly limited Timur Nutrition : Adequate Timur Friction and Shear : No apparent problem Timur Score : 20 Toni Kirby Rn - 10/26/2020 9:18 EST Sleep Apnea Risk Assmt BiPAP/CPAP Ordered for Home Use : Yes Hx of Obstructive Sleep Apnea Diagnosis : Yes BiPAP/CPAP Used at Home : Yes Age over 50 Years Old : Yes Gender Male : Yes Toni Kirby Rn - 10/26/2020 9:18 EST Pain Scale Intensity : 4 Jolene Lino Rn - 10/27/2020 10:51 EST Image 4 - Images currently included in the form version of this document have not been included in the text rendition version of the form. documented in this encounter Plan of Treatment Not on file documented as of this encounter Visit Diagnoses Not on filedocumented in this encounter
--- OUTSIDE RECORDS SUMMARY | 2025-05-25 12:56 | XMS_ITS | Encounter Summary ---
Author Organization [facility] Address [address] [place] [address] Care Team Providers Care Rodding Machine Tender Name Role Phone Ministerio Rosas MD Unavailable [phone] Khadijah Dolan APRN Primary Care Provider [phone] Reason for Visit * Reason Onset Date Comments HCN Clinical Concern/Question 05/19/2025 Encounter Details Date Type Department Care Team (Late st Contact Info) Description 05/19/2025 Telephone [place] [facility] [address] [place] [address] Ministerio Rosas MD [address] [place] [address] HCN Clinical Concern/Question Social History Tobacco Use Types Packs/Day Years [...] as of this encounter Miscellaneous Notes * Telephone Encounter - Cierra Peacock - 05/25/2025 10:17 AM EDT Clinical Concern/Question Reason for Call: Patient is asking for a call back regarding needing the CT scan results. Best contact number: [phone] (mobile) Optimal time of day to reach caller: ANYTIME Additional comments/information from caller: None Note: Please do not reply to this message. Follow-up communication and further actions as a result of this message need to be communicated with the patient directly, if the patient is not active onMyChart. If the patient is active on MyChart, they will receive notification of the communication/outcome via [email or web address]. * Telephone Encounter - Ventura Hernandez - 05/19/2025 1:25 PM EDT Clinical Concern/Question Reason for Call: Patient calling to get CT results (05/05/25). Records in [facility]. Please review and call patient to discuss. Thank you Best contact number: [phone] (mobile) Optimal time of day to reach caller: ANYTIME Additional comments/information from caller: None Note: Please do not reply to this message. Follow-up communication and further actions as a result of this message need to be communicated with the patient directly, if the patient is not active onMyChart. If the patient is active on MyChart, they will receive notification of the communication/outcome via [email or web address]. documented in this encounter Plan of Treatment Upcoming Encounters Date Type Department Care Team (Late st Contact Info) Description 06/23/2025 8:00 AM EDT Office Visit [place] [facility] [address] [place] [id number] Ministerio Rosas MD [address] [address] documented as of this encounter Visit Diagnoses Not on filedocumented in this encounter Additional Health Concerns Infection [...] documented as of this encounter Care Teams Rodding Machine Tender Relationship Specialty Start Date End Date Khadijah Dolan APRN [address] [place] [address] PCP - General 05/04/25 Ministerio Rosas MD [address] [address] Surgeon Urology 09/23/24 documented as of this encounter
--- OUTSIDE RECORDS SUMMARY | 2025-05-25 12:56 | XMS_ITS | Clinical Summary ---
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 Dysuria 67313917 (SNOMED CT) 12/19 Active 12/19 Lincoln Iqbal MD Dysuria Adverse drug reaction 398390583 (SNOMED CT) 12/19 Active 12/19 Lincoln Iqbal MD H/O: Disorder Nausea 777738812 (SNOMED CT) 12/19 Active 12/19 Lincoln Iqbal MD Nausea + QuantiFERON GOLD-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/o active TB R76.12 (ICD-10-CM ) 11/19 Active 11/19 Bobbi Eagle Nonspecific reaction to cell mediated immunity measurement of gamma interferon antigen response without active tuberculosis RA with rheumatoid factor, multiple sites M05.79 (ICD-10-CM ) 11/19 Active 11/19 Bobbi Eagle Rheumatoid arthritis with rheumatoid factor of multiple sites without organ or systems involvement DM II with diabetic peripheral neuropathy 53641168 (SNOMED CT) Active Bobbi Eagle Type 2 diabetes mellitus Dog bite, initial treatment encounter(s) W54.0xxA (ICD-10-CM ) Inactive Bobbi Eagle Bitten by dog, initial encounter Abscess of right finger L02.511 (ICD-10-CM ) Inactive Bobbi Fco Cutaneous abscess of right hand Cellulitis of right finger L03.011 (ICD-10-CM ) Inactive Bobbi Fco Cellulitis of right finger Open bite of right index finger without damage to nail, initial encounter S61.250A (ICD-10-CM ) Inactive Bobbi Fco Open bite of right index finger without damage to nail, initial encounter Obesity 596434741 (SNOMED CT) Inactive Bobbiarabella Eagle Obesity Diarrhea, antibiotic associated 582359944 (SNOMED CT) 11/20 Inactive 11/20 Bobbi Eagle Antibiotic-ass ociated diarrhea Diarrhea, antibiotic associated 154197201 (SNOMED CT) 11/20 Removed 11/20 Lincoln Iqbal MD Antibiotic-ass ociated diarrhea Obesity 028144434 (SNOMED CT) Removed Trish Napier RN Obesity Open bite of right index finger without damage to nail, initial encounter S61.250A (ICD-10-CM ) Removed Radha W Open bite of right index finger without damage to nail, initial encounter Acute osteomyelitis, right finger M86.141 (ICD-10-CM ) Inactive Radha W Other acute osteomyelitis, right hand Problem excluded fro m report: Septic arthritis, right hand/finger (identify bacteria) M00.841 (ICD-10-CM ) Inactive Radha W Arthritis due to other bacteria, right hand Problem excluded fro m report: Tobacco abuse, cigarettes F17.210 (ICD-10-CM ) Active Radha W Nicotine dependence, cigarettes, uncomplicated Tobacco abuse 80069604 (SNOMED CT) Inactive Lincoln Iqbal MD Tobacco dependence syndrome Septic arthritis, right hand/finger (identify bacteria) M00.841 (ICD-10-CM ) Removed Bobbi Eagle Arthritis due to other bacteria, right hand Abscess of right finger L02.511 (ICD-10-CM ) Removed Bbobi Eagle Cutaneous abscess of right hand Cellulitis of right finger L03.011 (ICD-10-CM ) Removed Bobbi Eagle Cellulitis of right finger Acute osteomyelitis, right finger M86.141 (ICD-10-CM ) Removed Bobbi Eagle Other acute osteomyelitis, right hand Benign Essential Hypertension 2042717 (SNOMED CT) Active Bobib Eagle Benign essential hypertension DM Type II E11.9 (ICD-10-CM ) Inactive Bobbi Eagle Type 2 diabetes mellitus without complications Dog bite, initial treatment encounter(s) W54.0xxA (ICD-10-CM ) Removed Bobbi Eagle Bitten by dog, initial encounter Medications Medication Instructions Start Date Stop Date Generic Name ND Provider RIFAMPIN 300 MG CAPS 2 daily RIFAMPIN 02847378187 Lincoln Iqbal MD ISONIAZID 300 MG TABS one daily ISONIAZID 08508743518 Lincoln Iqbal MD B-6 50 MG TABS one daily PYRIDOXINE HCL 02509838998 Lincoln Iqbal MD TRAMADOL HCL 50 MG TABS by mouth twice daily TRAMADOL HCL 68507659619 Devonte Holland CELEBREX 200 MG CAPS by mouth daily CELECOXIB 25218159301 Devonte Holland LYRICA 150 MG CAPS by mouth twice daily PREGABALIN 77376677626 Devonte Holland DIAZEPAM 5 MG TABS Take/use as needed. DIAZEPAM 69483641074 Devonte Holland MELOXICAM 15 MG TABS by mouth daily MELOXICAM 12296230292 Devonte Holland NORCO 10-325 MG ORAL TABLET HYDROCODONE-ACET AMINOPHEN 22922966210 Devonte Holland VICOPROFEN 7.5-200 MG ORAL TABLET HYDROCODONE-IBUP ROFEN 88546078858 Devonte Holland BACTRIM DS 800-160 MG TABS SULFAMETHOXAZOLE -TRIMETHOPRIM 82610824598 Devonte Holland MUPIROCIN 2 % OINT apply daily to finger MUPIROCIN 33304305966 Devonte Amalia CIPROFLOXACIN HCL 500 MG TABS 1 by mouth twice a day CIPROFLOXACIN HCL 99736775447 Devonte Holland MINOCYCLINE HCL 100 MG CAPS one pill by mouth twice daily MINOCYCLINE HCL 28034682495 Devonte Holland INVANZ 1 GM INTRAVENOUS SOLUTION RECONSTITUTED 1gm IV daily [facility] [phone](f) [phone] ERTAPENEM SODIUM 91351872342 Clementine Pablo MINOCYCLINE HCL 100 MG CAPS one pill by mouth twice daily MINOCYCLINE HCL 10727760579 Lincoln Iqbal MD CIPROFLOXACIN HCL 500 MG TABS 1 by mouth twice a day CIPROFLOXACIN HCL 31137611305 Lincoln Iqbal MD INVSALVADOR 1 GM INTRAVENOUS SOLUTION RECONSTITUTED 1gm IV daily [facility] [phone](f) [phone] ERTAPENEM SODIUM 00051035840 [facility] INVANZ 1 GM INTRAVENOUS SOLUTION RECONSTITUTED 1gm IV daily [facility] (f) [phone] ERTAPENEM SODIUM 38823895418 [facility] MINOCYCLINE HCL 100 MG CAPS 1 twice daily MINOCYCLINE HCL 66566549370 Shyanne Rangel RN CIPROFLOXACIN HCL 500 MG TABS 1 by mouth twice a day CIPROFLOXACIN HCL 04092380766 Shyanne Rangel RN CIPROFLOXACIN HCL 500 MG TABS 1 by mouth twice a day CIPROFLOXACIN HCL 23413335529 Lincoln Iqbal MD MINOCYCLINE HCL 100 MG CAPS 1 twice daily MINOCYCLINE HCL 13921450830 Lincoln Iqbal MD MUPIROCIN 2 % OINT apply daily to finger MUPIROCIN 34965279209 Lincoln Iqbal MD VITAMIN D2 50 MCG (1999 UT) TABS 1.25mg daily ERGOCALCIFEROL 07072371247 Parisa Marcial ALLEN LOW DOSE 81 MG TBEC by mouth daily ASPIRIN 67538648841 Parisa Marcial DIAZEPAM 5 MG TABS Take/use as needed. DIAZEPAM 74493499179 Parisa Marcial DICLOFENAC SODIUM 75 MG TBEC DICLOFENAC SODIUM 69467299580 Parisa Marcial LISINOPRIL 40 MG TABS by mouth daily LISINOPRIL 41001238612 Parisa Marcial LYRICA CAPS PREGABALIN CAPS 07127707662 Parisa Marcial METFORMIN HCL 500 MG TABS by mouth twice daily METFORMIN HCL 97796918733 Parisa Marcial MELOXICAM 15 MG TABS by mouth daily MELOXICAM 08891027077 Parisa Marcial VOLTAREN 1 % GEL DICLOFENAC SODIUM 22993741437 Parisa Marcial VOLTAREN 1 % GEL DICLOFENAC SODIUM 73451513042 Janet Madden VICOPROFEN 7.5-200 MG ORAL TABLET HYDROCODONE-IBUP ROFEN 74963481877 Janet Solanox NORCO 10-325 MG ORAL TABLET HYDROCODONE-ACET AMINOPHEN 25898350053 Janet Solanox METFORMIN HCL 500 MG TABS METFORMIN HCL 43611892358 Janet Griffindox MELOXICAM TABS MELOXICAM TABS 87554644976 Janet Madden LYRICA CAPS PREGABALIN CAPS 09588450492 Janet Madden LISINOPRIL 40 MG TABS LISINOPRIL 20788029755 Janet Madden LEVOTHYROXINE SODIUM TABS LEVOTHYROXINE SODIUM TABS 09168960188 Janet Madden EFFEXOR XR 75 MG LM69Y-LYP VENLAFAXINE HCL 39610098672 Janet Madden DICLOFENAC SODIUM 75 MG TBEC DICLOFENAC SODIUM 21368374194 Janet Madden DIAZEPAM 5 MG TABS DIAZEPAM 56133054607 Janet Madden BACTRIM DS 800-160 MG TABS SULFAMETHOXAZOLE -TRIMETHOPRIM 26321694279 Janet Madden Medications Administered No information available. Allergies, Adverse Reactions, Alerts Allergy Name Reaction Description Start Date Severity Statu s Provider PENICILLINS Critical Active Janet Madden Results Date Name Value Unit Range Flag Description Chart Maintenance: updated H H info 09/04/16, 08/28/16 CRPCARDRISK 2.1 mg/L C reactiv e protein [Mass/volume] in Serum or Plasma ESR 26 mm/h Erythrocyte sedimentation rate by Westergren method Lab Report: URINALYSIS, MICR OSCOPIC ONLY [id number] Automated Microscopy GE use only - fo r LinkLogic import when terms are not otherwise specified HYAL CAST UR 0-6 /[LPF] 0-6 Hyaline casts [#/area] in Urine sediment by Microscopy low power field Lab Report: URINALYSIS WITHO UT MICROSCOPIC (NO CULTURE) UROBILINOGEN 0.2 E.U./dL 0.2 - 1.0 Ur obilinogen [Presence] in Urine by Test strip NITRITE URN Negative Negative Nitrite [Presence] in Urine by Test strip WBC DIPSTK U Negative Negative Leukoc yte esterase [Presence] in Urine by Test strip PROTEIN, URN Negative Negative protei n, urine, semiquantitative (dipstick) BILIRUBIN UR Negative Negative Biliru bin.total [Presence] in Urine by Test strip KETONES URN Negative Negative Ketones [Mass/volume] in Urine by Test strip GLUCOSE, URN >=1000 mg/dL (3+) Negative A Glucose [Mass/volume] in Urine by Test strip SPEC GR URIN 1.021 1.001-1.03 Speci fic gravity of Urine by Test strip PH URINE 5.5 5.0-8.0 pH of Urine by Test strip APPEARANCE U Clear Clear Appearan ce of Urine UA COLOR Yellow Yellow, St Color of Urine Lab Report: CBC WITH AUTO DI FFERENTIAL IMMATUREGRAN 0.03 10*3/MM3 0.00-0.05 Immature granulocytes [#/volume] in Blood BASO# 0.02 10*3/mm3 0.00-0.20 Basop hils [#/volume] in Blood EOS ABSLT 0.45 10*3/uL 0.00-0.30 H Eosinophi ls [#/volume] in Blood MONOSCT AUTO 0.52 10*3/uL 0.00-1.00 Monocy dawson [#/volume] in Blood by Automated count LYMPHCT AUTO 2.15 10*3/mm 3 0.60-4.80 Lymphocytes [#/volume] in Blood by Automated count ABS NEUTROPH 4.79 10*3/uL 1.50-8.30 Neutro phils [#/volume] in Blood IMM GRANU % 0.4 % 0.0-0.6 Immature granulocytes/100 leukocytes in Blood % EOS AUTO 5.7 % 0.0-3.0 H Eosinophil s/100 leukocytes in Blood by Automated count MONOCYTE BF 6.6 % 0.0-12.0 monocyte s as percent of body fluid leukocytes LYMPHOCY BF 27.1 % 24.0-44.0 lymphoc ytes as percent of body fluid leukocytes PMN % 60.3 % 41.0-71.0 Neutrophils /100 leukocytes in Blood by Automated count PLATELETS 166 10*3/mm 3 150-450 Platelets [#/volume] in Blood by Automated count RDW_ 14.2 11.3-14.5 RDW, no uni ts MCHC 33.9 G/DL 32.0-36.0 MCHC [Mass/ volume] by Automated count MCH 31.0 pg 27.0-31.0 MCH [Entiti c mass] by Automated count MCV 91.5 fL 80.0-99.0 MCV [Entiti c volume] by Automated count HCT 46.3 % 38.9-50.9 Hematocrit [Volume Fraction] of Blood by Automated count HGB 15.7 g/dL 13.1-17.5 Hemoglobin [Mass/volume] in Blood RBC 5.06 10*6/mm 3 4.20-5.76 Erythrocytes [#/volume] in Blood by Automated count WBC 7.93 10*3/mm 3 3.50-10.80 Leukocytes [#/volume] in Blood by Automated count Lab Report: COMPREHENSIVE PA TABOLIC PANEL ANIONGAP 8.0 mmol/L 3.0-11.0 anion gap, serum BUN/CREAT 12.5 7.0-25.0 Urea nitrogen/Creatinine [Mass Ratio] in Serum or Plasma GFRC 63 mL/min/ 1.73m2 >60 Glomerular Filtration Rate Calculation BILI TOTAL 0.5 mg/dL 0.3-1.2 Bilirubin. total [Mass/volume] in Serum or Plasma ALK PHOS 115 U/L 25-100 H Alkaline phosphatase [Enzymatic activity/volume] in Blood SGOT (AST) 35 U/L 0-33 H Aspartate aminotransferase [Enzymatic activity/volume] in Serum or Plasma SGPT (ALT) 52 U/L 7-40 H Alanine aminotransferase [Enzymatic activity/volume] in Serum or Plasma ALBUMIN 4.55 g/dL 3.20-4.80 Albumin [Mass/volume] in Serum or Plasma PROTEIN, TOT 6.7 g/dL 5.7-8.2 Protein [Mass/volume] in Serum or Plasma CALCIUM 8.3 mg/dL 8.7-10.4 L Calcium [Moles/volume] in Serum or Plasma CO2 27.0 mmol/L 20.0-31.0 Carbon diox nikolay, total [Moles/volume] in Venous blood CHLORIDE 98 mmol/L 99-109 L Chloride [Moles/volume] in Serum or Plasma POTASSIUM 4.5 mmol/L 3.5-5.5 Potassium [Moles/volume] in Serum or Plasma SODIUM 133 mmol/L 132-146 Sodium [Moles/volume] in Serum or Plasma CREATININE 1.20 mg/dL 0.60-1.30 Creatini ne [Mass/volume] in Serum or Plasma BUN 15 mg/dL 9-23 Urea nitrogen [Mass/volume] in Serum or Plasma GLUCOSE SER 388 mg/dL 70-100 H Glucose [Mass/volume] in Serum or Plasma Lab Report: CBC With Differe ntial/Platelet, Comp. Metabolic Panel (14), ... URINE CULT SOMFAX A Bacteria i dentified in Urine by Culture BACTERIA URN NOSEE None Seen,Trace Bacteria [#/area] in Urine sediment by Microscopy high power field CAST TYP URN HYAC cast typ e, urinalysis EPI CELL UR 0-2 /[LPF] None Seen,0-2 Epithelial cells [#/area] in Urine sediment by Microscopy high power field URBC 0-2 /hpf /[HPF] None Seen,0-2 Erythrocytes [#/area] in Urine sediment by Microscopy high power field URINE MICRO MICRO Microscop ic exam [Interpretation] of Urine by Cytology NITRATE UR N Negative Nitrate [ Presence] in Urine HEMOCCULT N Negative Hemoglobin .gastroin testinal [Presence] in Stool GLUC UR RADHA UR3 g/dL Negative A Glucose [Mass/volume] in Urine SPEC GRAV FL 1.021 1.001-1.030 Spec ific gravity of Body fluid A/G RATIO 2.1 g/dL 1.5-2.5 Albumin/Marisela bulin [Mass Ratio] in Serum or Plasma GLOBULIN 2.2 Globulin [Mass/volume] in Serum EGFR NOT AFA 63 mL/min/ 1.73m2 >60 Glomerular filtration rate/1.73 sq M.predicted among non-blacks [Volume Rate/Area] in Serum, Plasma or Blood by Creatinine-based formula (MDRD) BG RANDOM 158 mg/dL 70-100 H Glucose [Mass/volume] in Blood BASOPHIL % 0.3 % 0.0-1.0 Basophils/ 100 leukocytes in Blood by Manual count MONOCYTE % 6.6 % 0.0-12.0 Monocytes /100 leukocytes in Blood by Automated count LYMPHS % 27.1 % 24.0-44.0 Lymphocyte s/100 leukocytes in Blood by Automated count RDW 14.2 % 11.3-14.5 Erythrocyte distribution width [Ratio] by Automated count Office Visit: Room 10 MEDS REVIEW Done Documenta tion of current medications (procedure) DIET COOLING PAN TENDER yes Dietary management education, guidance, and counseling (procedure) SMOK ADVICE yes Smoking c essation education (procedure) SMOK STATUS Current every day smoker Tobacco smoking status Plan of Care Type Date Detail Pending order Continue oral an tibiotics Pending order Discontinue oral antibiotics Pending order CBC with Differe ntial Pending order CMP Pending order X-Ray, Chest, PA & Lateral Pending order Continue oral an tibiotics Pending order Discontinue oral antibiotics Pending order CMP Pending order CBC with Differe ntial Pending order Urine Culture & Sensitivity Pending order Urinalysis with microscopic exam Pending order New Oral Antibio tic Pending order Change oral anti biotics Pending order Discontinue oral antibiotics Pending order C-Diff PCR Pending order PICC Removal Pending order Discontinue IV a ntibiotics Pending order New Oral Antibio tic Pending order Continue IV anti biotics Pending order Weekly PICC Line Care Pending order Weekly Labs (Con tinue) Pending order Continue IV anti biotics Pending order Weekly PICC Line Care Pending order Weekly Labs (Con tinue) Pending order New IV antibioti c Pending order New Oral Antibio tic Pending order PICC Line Insert ion Pending order PICC Line Insert ion Pending order Weekly PICC Line Care Pending order Stat Weekly Labs Pending order CBC with Differe ntial Pending order CMP Pending order C- reactive prot ein Pending order Sedimentation Ra te (ESR) Pending order Hepatitis C Atb: (ICD 10 Code: Z11.59) Patient education Medications Patient education Medications Patient education Medications Patient education Medications Patient education Medications Patient education OBESITY Patient education WEIGHT%20MANAG EMENT Patient education OBESITY Patient education WEIGHT%20MANAG EMENT Patient education HOW%20TO%20STO P%20SMOKING Patient education Medications Patient education Medications Patient education Medications Patient education Medications Patient education Medications Patient education Medications Patient education Medications Patient education Medications Patient education Medications Procedures Code Procedure Name Date Entry Date CPT-Cooral Continue oral antibiotics 20 10/12/27 CPT-oral Discontinue oral antibiotics CPT-94101 CMP [id number] CBC with Differential 2018 CPT-11915 Urine Culture & Sensitivity CPT-09993 Urinalysis with microscopic exam CPT-patrice New Oral Antibiotic CPT-coral Change oral antibiotics 2015 CPT-oral Discontinue oral antibiotics CPT-cdpcr C-Diff PCR CPT-PICREM PICC Removal CPT-DC Discontinue IV antibiotics 2 CPT-patrice New Oral Antibiotic CPT-ca Continue IV antibiotics 2015 CPT-wpc Weekly PICC Line Care 10/29 CPT-cwl Weekly Labs (Continue) 08/29 CPT-ca Continue IV antibiotics 2015 CPT-wpc Weekly PICC Line Care 10/22 CPT-cwl Weekly Labs (Continue) 08/22 CPT-last New IV antibiotic CPT-patrice New Oral Antibiotic CPT-34556 PICC Line Insertion CPT-69270 PICC Line Insertion CPT-wpc Weekly PICC Line Care CPT- stat weekly Stat Weekly Labs [id number] CBC with Differential 2015 CPT-29857 CMP CPT-02556 C- reactive protein CPT-56136 Sedimentation Rate (ESR) 201 03/31/24 10660 Hepatitis C Atb: (ICD 10 Code: Z11.59) 20 06/08/21 Vital Signs Date Name Value Unit Description BMI (Body Mass Index) 36.18 kg/m2 Bod y Mass Index (Ratio) Body Temperature 98.3 [degF] temperat ure E&M BP Diastolic 74 mm[Hg] blood pressu re, diastolic BP Systolic 134 mm[Hg] blood pressur e, systolic Heart Rate 72 /min pulse rate Height 69 [in_us] height E&M Respiratory Rate 20 /min respirat ory rate E&M Weight Measured 245 [lb_av] weight E& M Weight Measured 245 [lb_av] weight E& M Immunizations Vaccine Administration Date Standard Description CVX Co de Dose Fluvirin Preservative Free Intramuscular Suspension Fluvirin Preservative Free Intramuscular Suspension 140 Unknown Advance Directives Directive Description Start Date NO DIRECTIVES AT THIS TIME
--- OUTSIDE RECORDS SUMMARY | 2025-05-25 12:56 | XMS_ITS | Encounter Summary ---
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 [employer] Authorization Entered On: 10/28/2020 13:54 EST Performed On: 10/28/2020 13:52 EST by ROLF LUDWIG RN-Utilization Review Primary Insurance Authorization Authorization and Policy Numbers : Insurance 1 Health Plan: [employer] PPO Policy Number: [id number] Authorization Number: Insurance Primary Name : [employer] [id number] Auth/Referral Contact Name-Primary : Alfredo Casas Authorization Number-Primary : Pending, No Notes in STAR yet nothing on Availity as of yet Authorized Service Begin Date-Primary : 10/29/2020 EST Authorization Comments-Primary : call to gael/dr slater office to obtain preauth #. She states no auth # yet. She will call [employer] to check on it and call me back Historical Authorization Comments-Primary : Comment 1: Pt is david for INPT Lumbar Fusion Posterior 3 Level on Sunday10-29-20 [employer] Choice: No auth notes in STAR or availity as of yet (DERICK SHIPMAN, Medical Office Secretary 10/28/2020 12:39) ROLF LUDWIG, RN-Utilization Review - 10/28/2020 13:52 EST Electronically signed by [facility], [facility] Conversion Portrait Artist Cerner at 02/08/2023 12:33 PM CDT documented in this encounter Plan of Treatment Not on file documented as of this encounter Visit Diagnoses Not on filedocumented in this encounter
--- OUTSIDE RECORDS SUMMARY | 2025-05-25 12:56 | XMS_ITS | Encounter Summary ---
Author Organization [employer] ([place], [place], [place], [place]) Address [address] [place] [address] Care Team Providers Care Program Aide Group Work Name Role Phone Unavailable Primary Care Provider Unavailabl e Encounter Details Date Type Department Care Team (Late st Contact Info) Description 10/29/2020 Transcribed Document [facility] Family Medicine [facility] [place] [address] ProviderFarhan MD [address] [place] [address] Social History Tobacco Use Types [...] Conversion Note - Historical ProviderMD - 10/29/2020 7:06 AM CHISEL WORKER Admission History, Adult Entered On: 10/29/2020 19:47 EST Performed On: 10/29/2020 14:00 EST by DARIUS VELIZ RN Advance Directive Patient has Advance Directive *Q : No, patient refuses Advance Directive information DARIUS VELIZ RN - 10/29/2020 19:45 EST Anesthesia/Transfusion History Family History of Anesthesia Reaction : No prior transfusion(s) Transfusion History : Prior anesthesia without reaction Family History of Anesthesia Reaction : None DARIUS VELIZ RN - 10/29/2020 19:45 EST Education Topics, Admission Orientation DCP GENERIC CODE Advance Directives : Verbalizes understanding Allergy Band Applied : Verbalizes understanding Assessment/Vital Signs : Verbalizes understanding Bed Control : Verbalizes understanding Call Light : Verbalizes understanding Confidentiality : Verbalizes understanding Diet/Room Service : Verbalizes understanding Fall Prevention : Verbalizes understanding Hand Hygiene : Verbalizes understanding Healthcare Provider Visit : Verbalizes understanding ID Band Applied : Verbalizes understanding Isolation Precautions : Verbalizes understanding Orientation to Room/Bathroom : Verbalizes understanding Patient Bill of Rights : Verbalizes understanding Patient Rights/Responsibilities : Verbalizes understanding Patient Safety : Verbalizes understanding Personal Privacy Code : Verbalizes understanding Rapid Response Initiated by Patient/Family : Verbalizes understanding Rounding : Verbalizes understanding Siderails use/risks : Verbalizes understanding Skin Precautions : Verbalizes understanding Smoking Policy : Verbalizes understanding Telemetry Monitoring : Verbalizes understanding Television/Phone : Verbalizes understanding Visiting Policy : Verbalizes understanding DARIUS VELIZ RN - 10/29/2020 19:45 EST Functional Assessment Living Situation : Home Patient Lives With : Spouse Persons Assisting Patient at Home : Spouse Current Home Treatments : Blood glucose monitoring Professional Skilled Services : None DARIUS VELIZ RN - 10/29/2020 19:45 EST General Info Preferred Name : Bucky Arrived From : Home Mode of Arrival on Unit : Ambulatory Legal Guardian : Unaccompanied Support Person/Patient Plumber'S Helper : Yes Support Person/Pt Rep Name : Taylor Silvestre - Support Person/Pt Rep Contact Information : [phone] Want Family/Rep/Phys Notified of Admit : No Emergency Contact #1 : Taylorwilliam Silvestre Emergency Contact #1 ` Emergency Contact #1 Relationship : ` Emergency Contact #2 : ` Emergency Contact #2 Phone Number : ` Emergency Contact #2 Relationship : ` Primary Language : Czech Preferred Communication Mode : Verbal Communication Barrier : None Bilingual Counter Sales Retail Needed : No DARIUS VELIZ RN - 10/29/2020 19:45 EST Fall Risk Scales ABCs Fall Injury Risk Identification : Surgery ABC Fall Injury Risk : Moderate to high injury risk CANTU Hx Falls Immediate/Within 3 Months : No Cantu Secondary Diagnosis : No CANTU Use of Ambulatory Aid : Bed rest/Nurse assist CANTU IV Therapy or IV Access : Yes Cantu Gait/Transferring : Weak Cantu Mental Status : Oriented to own ability Cantu Fall Risk Score : 30 CANTU Fall Scale Risk Level : 25-45 Medium Risk [place] Fall Interventions : Adequate lighting, Assistive devices within reach, Bed in low position, Call device within reach, Fall prevention handout/education per facility policy, Hourly comfort/safety rounds, Non-slip footwear, Personal items within reach, Reinforced to call for assistance before getting out of bed, Room free of clutter/spills, Upper side-rails up, Wheels locked, Wires/Cords secured, Other: Fall Moderate to High Risk Interventions : Supervise toileting as indicated, Transport methods appropriate to patient Fall Risk Scale Calc Temp : 0 DARIUS VELIZ RN - 10/29/2020 19:45 EST Health Histories Smoking Status : 10 or more cigarettes (1/2 pack or more)/day in last 30 days Smokeless Tobacco Status : Never Desires Tobacco Cessation Medication : No Reason for No Tobacco Cessation Medication : Refuses FDA approved medications DARIUS VELIZ RN - 10/29/2020 19:45 EST Social History (As Of: 10/29/2020 19:47:20 EST) Tobacco: Smoking Status Current every day smoker. Five or more cigarettes per day Smoking Frequency Within Last 30 Days. Use in Last 12 Months: Cigarettes. Years of Use: 40. Packs/Tins Daily: 2. Used Tobacco, but Quit No. (Last Updated: 03/29/2017 12:20:52 EDT by MARIA EUGENIA BRASHER, DAE) 10 or more cigarettes (1/2 pack or more)/day in last 30 days Smoking Status. Never Smokeless Tobacco Status. None Smokeless Tobacco Use History. Years of Use: 45. Packs/Tins Daily: 2. Last Used: October 2020. Second Hand Smoke Exposure: Yes. (Last Updated: 10/26/2020 09:18:45 EST by Toni Kirby, Dae) Alcohol: Alcohol Use History No. Use in Last 12 Months: No. (Last Updated: 10/26/2020 09:18:45 EST by Toni Kirby, Dae) Substance Abuse: Drug Use Hx: No. Use in Last 12 Months: No. (Last Updated: 10/26/2020 09:18:45 EST by Toni Kirby, Dae) Height and Weight, Clinical Dosing Height Source : Estimated Height Entry Format : [place] Height, Feet : 5 ft(Converted to: 152 cm, 60 Inch) Height, Inches : 9 Inch(Converted to: 0 ft 9 Inch, 22.86 cm) Clinical Height : 175.26 cm Weight Source : Standing scale Weight Entry Format : [place] Clinical Dosing Weight : 106.36 kg Weight, Pounds : 234 lb Body Surface Area (BSA) : 2.21 m2 Body Mass Index : 34.6 kg/m2 (HI) [place] Body Weight : 70 kg DARIUS VELIZ RN - 10/29/2020 19:45 EST Infectious Disease History Has the patient ever been tested for COVID-19? : Yes, Patient stated results pending Date of COVID-19 test known? : No Does patient have symptoms of COVID-19? : No COVID19 Screening : No Experiencing Infectious Disease Symptoms : No symptoms Physical contact outside [place] in the last 30 days : No Infectious Disease History : Other: osteomylitis in right index finger post dog bite Tuberculosis Symptoms : None DARIUS VELIZ RN - 10/29/2020 19:45 EST Influenza Vaccine Asmt, Adult Previous Vaccines from Immunization Schedule : No qualifying data available. Influenza Immunization, Current Season : Yes DARIUS VELIZ RN - 10/29/2020 19:45 EST Pneumococcal Vaccine Previous Vaccines from Immunization Schedule : No qualifying data available. Pneumonia Immunization Received : Yes DARIUS VELIZ RN - 10/29/2020 19:45 EST Order Details Order Detail : N/A Patient Needs Meds Crushed/Liquid : No DARIUS VELIZ RN - 10/29/2020 19:45 EST Nutrition History Eating Poorly Due to Decreased Appetite : No Unplanned Weight Loss in Past 3-6 Months : No Malnutrition Screening Tool Total(mal) : 0 Malnutrition Screening Tool Risk Level : Patient not at risk DARIUS VELIZ RN - 10/29/2020 19:45 EST [place] Suicide Severity Rating Scale (C-SSRS) CSSRS Past Month Wish to be : No CSSRS Past Month Suicidal Thoughts : No CSSRS Lifetime Suicide Behavior : No Suicide Severity Rating Score : 0 Suicide Severity Rating : No Additional Care Required at this time DARIUS VELIZ RN - 10/29/2020 19:45 EST Psychosocial History Do You Have a History of the Following? : Anxiety, Depression Currently in Unsafe Situation : No DARIUS VELIZ RN - 10/29/2020 19:45 EST Sleep Apnea Risk Assmt BiPAP/CPAP Ordered for Home Use : Yes Hx of Obstructive Sleep Apnea Diagnosis : Yes BiPAP/CPAP Used at Home : Yes Age over 50 Years Old : Yes Gender Male : Yes DARIUS VELIZ RN - 10/29/2020 19:45 EST Valuables and Belongings Valuables and Belongings : Clothing Clothing : Common streetwear Clothing Disposition : Bedside DARIUS VELIZ RN - 10/29/2020 19:45 EST Electronically signed by Kailey [facility] Conversion Pack Changer Cerner at 02/08/2023 12:12 PM CDT documented in this encounter Plan of Treatment Not on file documented as of this encounter Visit Diagnoses Not on filedocumented in this encounter
--- OUTSIDE RECORDS SUMMARY | 2025-05-25 12:56 | XMS_ITS | Encounter Summary ---
Author Organization [employer] ([place], [place], [place], [place]) Address [address] [place] [address] Care Team Providers Care Automation Qtp Tester Name Role Phone Unavailable Primary Care Provider Unavailabl e Encounter Details Date Type Department Care Team (Late st Contact Info) Description 10/28/2020 Transcribed Document [facility] Family Medicine [address] [place] [address] ProviderFarhan MD [address] [place] [address] Social History Tobacco Use Types [...] Conversion Note - Historical ProviderMD - 10/28/2020 12:39 PM STAMPING BENCH DIE MAKER UM Authorization Entered On: 10/28/2020 12:40 EST Performed On: 10/28/2020 12:39 EST by DERICK SHIPMAN, Log Rider Primary Insurance Authorization Authorization and Policy Numbers : Insurance 1 Health Plan: [employer] CHO[employer] PPO Policy Number: [id number] Authorization Number: Insurance Primary Name : [employer] Choice [id number] Auth/Referral Contact Name-Primary : Alfredo Casas Authorization Number-Primary : Pending, No Notes in STAR yet nothing on Availity as of yet Authorized Service Begin Date-Primary : 10/29/2020 EST Authorization Comments-Primary : Pt is david for INPT Lumbar Fusion Posterior 3 Level on Sunday10-29-20 [employer] Choice: No auth notes in STAR or availity as of yet Historical Authorization Comments-Primary : No Authorization Comments Found DERICK SHIPMAN, Log Rider - 10/28/2020 12:39 EST Electronically signed by Kailey, [facility] Conversion Garment Finisher Cerner at 02/08/2023 12:46 PM CDT documented in this encounter Plan of Treatment Not on file documented as of this encounter Visit Diagnoses Not on filedocumented in this encounter
--- OUTSIDE RECORDS SUMMARY | 2025-05-25 12:56 | XMS_ITS | Encounter Summary ---
Author Organization [employer] ([place], [place], [place], [place]) Address [address] [place] [address] Care Team Providers Care Mill Roll Operator Name Role Phone Unavailable Primary Care Provider Unavailabl e Encounter Details Date Type Department Care Team (Late st Contact Info) Description 10/29/2020 Transcribed Document [facility] Radiology [address] [place] [address] Vicente Orr MD [address] [address] Social History Tobacco Use Types Packs/Day Years Used Date Smoking Tobacco: Never Assessed Comments Unknown Sex and Gender Information Value Date Recorded Sex Assigned at Female 04/20/2022 12:25 PM CDT Legal Sex Male 5:58 PM CDT Gender Identity Female 04/20/2022 12:25 PM CDT Sexual Orientation Not on file documented as of this encounter Miscellaneous Notes * Cerner Conversion Note - Vicente Orr MD - 10/29/2020 11:29 AM EST Patient: FRANSISCO CRAVEN Age: 60 years Sex: Male : 1960 Associated Diagnoses: None Author: CALIN HARRIS APRN-LYUDMILA 10/29/2020 cc: medical management s/p L3-[address] Green HPI: Patient is a 60 yo male admitted to [facility] per Dr. Green for an L3-5 PLIF. Preoperatively patient was found to have advanced spondylolisthesis of the lumbar spine and elected surgical intervention after failing conservative treatment. Patient is followed perioperatively while hospitalized for medical management. patient is seen initially post op in his room on sixth floor. A/O. Denies hx CVA, seizures, DVT. Wears BIPAP for sleep apnea- says he was told he would not need for hospital. Smokes 2ppd. No alcohol use. No chronic bowel, bladder or prostate issues. Past Med Hx: Active Problems (20) Arthritis Back pain Bite - wound Cellulitis of finger COPD (chronic obstructive pulmonary disease) Diabetes mellitus type II Emphysema of lung GERD - Gastro-esophageal reflux disease Gluteal tendinitis Greater trochanteric pain syndrome High blood pressure Hyperlipidemia Idiopathic aseptic necrosis of bone Partial thickness rotator cuff tear Peripheral neuropathy Restless legs syndrome Shoulder joint pain Sleep apnea Spontaneous rupture of flexor tendons Thyroid disease Active Procedures (3) back surgery right elbow surgery uvula removal Family Hx: father- living age 89 mother- of unknown cancer Social & Psychosocial Habits Alcohol 10/26/2020 Alcohol Use History, Social Habits No Alcohol Use in Last Twelve Months No Substance Abuse 10/26/2020 Recreational Drug Use History No Recreational Drug Use Last 12 Months No Tobacco 03/29/2017 Smoking Status Current every day smoker Smoking Frequency Within Last 30 Days Five or more cigarettes p Tobacco Use Within Last Twelve Months Cigarettes Years of Tobacco Use 40 Packs/Tins Daily 2 Used Tobacco, but Quit No 10/26/2020 Smoking Status 10 or more cigarettes (1/ Smokeless Tobacco Status Never Smokeless Tobacco Use History None Years of Tobacco Use 45 Packs/Tins Daily 2 Month Tobacco Last Used October 2020 Second Hand Smoke Exposure Yes Allergies (1) Active Reaction penicillin Rash Home Medications (15) Active aspirin 81 mg, Oral, Daily atorvastatin 20 mg oral tablet 20 mg = 1 Tab, Oral, Daily diazepam 5 mg, PRN, Oral Inflectra 100 mg intravenous injection 1 Infusion, IntraVENous, N5Vctcd Jardiance 25 mg oral tablet 25 mg = 1 Tab, Oral, QAM levothyroxine 200 mcg, Oral, Daily lisinopril 40 mg, Oral, Daily loratadine 10 mg oral tablet 10 mg = 1 Tab, Oral, Daily Lyrica 225 mg oral capsule 225 mg = 1 Cap, Oral, BID metFORMIN 1,000 mg, Oral, BID predniSONE 5 mg oral tablet 5 mg = 1 Tab, Oral, Daily ranitidine 75 mg, Oral, Daily traMADol 50 mg oral tablet 50 mg = 1 Tab, PRN, Oral, Q12H venlafaxine extended release 150 mg, Oral, Daily Vitamin D2 50,000 Int Units, Oral, Weekly Constitutional: [No fevers, chills Eye: [No eye discharge, eye pain, redness] HEENT: [No nasal congestion, sore throat Respiratory: [No shortness of breath, cough, pain on breathing, sputum production] Cardiovascular: [No Chest pain, palpitations, syncope, shortness of breath while laying flat] Gastrointestinal: [No nausea, vomiting, diarrhea, constipation] Genitourinary: [No hematuria, dysuria, incontinence Musculoskeletal: LBP with decreased ROM Integumentary: [No rash, pruritus Neurologic: [No weakness, numbness Psychiatric: Hx anxiety/depression Exam: Vitals Signs (last 24 hrs) Last Charted Minimum Maximum Temp 98.2 (OCT 29 06:57) 98.2 (OCT 29 06:57) 98.2 (OCT 29 06:57) Mon HR 85 (OCT 29 06:57) 85 (OCT 29 06:57) 85 (OCT 29 06:57) Resp Rate 16 (OCT 29 06:57) 16 (OCT 29 06:57) 16 (OCT 29 06:57) SBP 110 (OCT 29 06:57) 110 (OCT 29 06:57) 110 (OCT 29 06:57) DBP 78 (OCT 29 06:57) 78 (OCT 29 06:57) 78 (OCT 29 06:57) SpO2 L 93 (OCT 29 06:57) L 93 (OCT 29 06:57) L 93 (OCT 29 06:57) General: [Alert and oriented, no acute distress]. Neurologic: [Awake, alert, and oriented X3, CN II-XII intact]. Eye: [PERRL, EOMI, normal conjunctiva]. HENT: [Normocephalic, normal hearing, moist oral mucosa, no scleral icterus Neck: [Supple, non-tender, no lymphadenopathy]. Lungs: diffuse expiratory wheezing, non-labored respiration]. Heart: [Normal rate, regular rhythm, no edema]. Abdomen: [Soft, non-tender, non-distended, normal bowel sounds Musculoskeletal: LBP with decreased ROM Skin: [Skin is warm, dry and pink Psychiatric: [Cooperative, appropriate mood and affect]. Data: Labs (Last four charted values) WBC H 10.3 (OCT 27) HB 16.2 (OCT 27) HCT 47.4 (OCT 27) Plt 192 (OCT 27) Na 136 (OCT 27) K 4.2 (OCT 27) Cl 104 (OCT 27) CO2 25 (OCT 27) BUN 16 (OCT 27) Cr 1.20 (OCT 27) Glu R H 229 (OCT 27) Ca 9.5 (OCT 27) Impression: advanced spondylolisthesis Lspine -s/p L3-[address] Green Hx sleep apnea Hx HTN Hx DMII Hx hypothyroid Hx COPD Hx RLS Hx anxiety/depression tobacco abuse- 2ppd post op hypotension Plan: bolus normal saline 500ml for pressure support nicotine patch 21mg daily Monitor HTN; add PRN's, hold parameters bowel regimen incentive spirometer PT/OT DVT prophylaxis noted Pain management deferred to surgeon will monitor hb/hct daily for signs of ongoing acute blood loss will monitor bun/cr daily for signs of dehydration, prerenal azotemia will monitor for signs/symptoms of post-op wound infection or hospital acquired infectious process accuchecks qac, qhs for blood glucose monitoring; will hold oral diabetic agents while hospitalized. will use short acting insulin for correction. may add long-acting insulin for persistent hyperglycemia resume outpatient medication regimen for comorbidities assessment and treatment plan made in conjunction with Naun Orr MD Scribed by Deb Moscoso documented in this encounter Plan of Treatment Not on file documented as of this encounter Visit Diagnoses Not on filedocumented in this encounter
--- OUTSIDE RECORDS SUMMARY | 2025-05-25 12:56 | XMS_ITS | Encounter Summary ---
Author Organization [employer] ([place], [place], [place], [place]) Address [address] [place] [address] Care Team Providers Care Rivet Thrower Name Role Phone Unavailable Primary Care Provider Unavailabl e Encounter Details Date Type Department Care Team (Late st Contact Info) Description 10/26/2020 Transcribed Document [facility] Family Medicine [address] [place] [address] ProviderFarhan MD [address] [place] [id number] Social History Tobacco Use Types Packs/Day Years [...] Conversion Note - Historical ProviderMD - 10/26/2020 9:22 AM CURRENCY EXAMINER Spiritual Care Assessment Entered On: 10/29/2020 7:43 EST Performed On: 10/29/2020 7:27 EST by SADIE ALEX General Information Initial Visit : Yes Referred by : Patient Referral Reason Comment : Pre-surgery visit Ministry Provided to : Patient Latter Day Preference : [employer] SADIE ALEX P - 10/29/2020 7:43 EST Spiritual Assessment Spiritual Assessment Comment/Summary Points : Provided pre-surgery visit and prayer. Spirital Assessment Comment/Summary Report : SPIRITUAL ASSESSMENT COMMENT/SUMMARY No qualifying data available. SADIE ALEX P - 10/29/2020 7:43 EST Interventions Emotional Support : Empathic/Engaged listening Spiritual and Latter Day : Prayer shared, Spiritual/Latter Day support provided SADIE ALEX - 10/29/2020 7:43 EST Electronically signed by Kailey [facility] Conversion Can Tender Cerner at 02/08/2023 12:38 PM CDT documented in this encounter Plan of Treatment Not on file documented as of this encounter Visit Diagnoses Not on filedocumented in this encounter
--- OUTSIDE RECORDS SUMMARY | 2025-05-25 12:56 | XMS_ITS | Encounter Summary ---
Author Organization [employer] ([place], [place], [place], [place]) Address [address] [place] [address] Care Team Providers Care Locomotive Firer/Fireman Name Role Phone Unavailable Primary Care Provider Unavailabl e Encounter Details Date Type Department Care Team (Late st Contact Info) Description 10/29/2020 Transcribed Document [facility] [place] [facility] [place] [address] ProviderFarhan MD [address] [place] [address] Social History Tobacco Use Types [...] Conversion Note - Farhan ProviderMD - 10/29/2020 10:34 AM REGISTERED PHYSICAL THERAPIST Pain Assessment Entered On: 10/30/2020 20:02 EST Performed On: 10/30/2020 12:36 EST by DARIUS VELIZ RN Intervention Information: oxyCODONE Performed by Johana Castano Non Emp RN on 10/30/2020 11:36:00 EST oxyCODONE,10mg Oral,Pain (Moderate 4-6) Pain Assessment Pain Assessment : Follow-up assessment Pain Scale Goal : 3 Pain Scale Used : 0-10 Scale DARIUS VELIZ RN - 10/30/2020 20:01 EST Pain Scale Intensity : 3 DARIUS VELIZ RN - 10/30/2020 20:01 EST Image 4 - Images currently included in the form version of this document have not been included in the text rendition version of the form. documented in this encounter Plan of Treatment Not on file documented as of this encounter Visit Diagnoses Not on filedocumented in this encounter
--- OUTSIDE RECORDS SUMMARY | 2025-05-25 12:56 | XMS_ITS | Encounter Summary ---
Author Organization [facility] Address [address] [place] [address] Care Team Providers Care Psychology Lecturer Name Role Phone Ministerio Rosas MD Unavailable [phone] Khadijah Dolan APRN Primary Care Provider [phone] Encounter Details Date Type Department Care Team (Latest Contact Info) Description 05/04/2025 Travel Social History Tobacco Use Types Packs/Day Years [...] on file documented as of this encounter Plan of Treatment Upcoming Encounters Date Type Department Care Team (Late st Contact Info) Description 06/23/2025 8:00 AM EDT Office Visit [place] [facility] [address] [place] [address] Ministerio Rosas MD [address] [facility] [address] [place] [address] documented as of this encounter Visit Diagnoses Not on filedocumented in this encounter Additional Health Concerns Infection Onset Date Last Indicated 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
--- OUTSIDE RECORDS SUMMARY | 2025-05-25 12:56 | XMS_ITS | Encounter Summary ---
Author Organization [facility] Address [address] [place] [address] Care Team Providers Care Crop Puller Name Role Phone Ministerio Rosas MD Unavailable [phone] Khadijah Dolan APRN Primary Care Provider [phone] Encounter Details Date Type Department Care Team (Latest Contact Info) Description 05/05/2025 Travel Social History Tobacco Use Types Packs/Day [...] of Assessment Author 0 05/05/2025 2:56 PM EDT Lorraine Deleon * Question Answer Date of Assessment Author [...] Score 0 05/05/2025 2:57 PM Jaxson Low E * If you checked off any problems on this questionnaire so far, Question Answer Date of Assessment Author How difficult have these problems made it for you to do your work, take care of things at home, or get along with other people? Not difficult at all 05/05/2025 2:57 PM EDT Jaxson Deelon documented as of this encounter Plan of Treatment Upcoming Encounters Date Type Department Care Team (Late st Contact Info) Description 06/23/2025 8:00 AM EDT Office Visit [place] [facility] [address] [place] [address] Ministerio Rosas MD [address] [address] documented as of this encounter [...] documented as of this encounter Care Teams Crop Puller Relationship Specialty Start Date End Date Khadijah Dolan APRN [address] [place] [address] PCP - General 05/04/25 Ministerio Rosas MD [address] [address] Surgeon Urology 09/23/24 documented as of this encounter
--- OUTSIDE RECORDS SUMMARY | 2025-05-25 12:57 | XMS_ITS | Encounter Summary ---
Author Organization [employer] ([place], [place], [place], [place]) Address [address] [place] [address] Care Team Providers Care Napper Grinder Name Role Phone Unavailable Primary Care Provider Unavailabl e Encounter Details Date Type Department Care Team (Late st Contact Info) Description 10/29/2020 Transcribed Document [facility] [place] Family Medicine [facility] [place] [address] ProviderFarhan MD [address] [place] [address] Social History Tobacco Use Types [...] Conversion Note - Historical ProviderMD - 10/29/2020 10:34 AM TRAINMASTER Evaluation, Occupational Therapy Entered On: 10/29/2020 15:00 EST Performed On: 10/29/2020 14:02 EST by CONNOR WALTON OTR/Desiree General Information, OT Visit Type, OT : Initial evaluation Patient Orders : Order Date Order Ordering 10/29/2020 10:34 Occupational Therapy Evaluation and Treatme Ordered By: ADDIE VELIZ MD-SNU Active Diagnoses : No Qualifying Diagnoses Therapy Diagnosis, OT : Decreased independence with ADLs due to pain Admission Date : 10/29/2020 12:20 Co-treated by, OT : Physical Therapist Personal Devices : Personal Devices No Devices Recorded Assistive Devices : Assistive Devices No Devices Recorded General Information Comment, OT : Dx: L3-L4; L4-l5 Lumbar fusion W/ Brace CONNOR WALTON OTR/L - 10/29/2020 14:54 EST General Status Patient Received Status : Supine in bed Treatment Start Time : 10/29/2020 13:42 EST Patient Left Status : Supine in bed, RN/PCT informed, Family/Visitors at bedside, All needs met and within reach RN/PCT Informed Comment : DAE webster/fawn Treatment End Time : 10/29/2020 14:05 EST Treatment Time : 23 Minute(s) CONNOR WALTON OTR/Desiree - 10/29/2020 14:54 EST History and Environment, OT Living Situation, Therapy : Home Patient Lives With : Spouse Home Equipment, Therapy : None Home Setup : One story Stairs : Yes Stair Location(s) : Outside Outside Stairs, Number of Steps : 2 Railing Inside : No CONNOR WALTON OTR/Desiree - 10/29/2020 14:54 EST Prior LOF Bathing, OT : Independent Prior LOF Bed Mobility : Independent Prior LOF Upper Body Dressing, OT : Independent Prior LOF Lower Body Dressing, OT : Independent Prior LOF Toileting : Independent Prior LOF Transfer : Independent Prior LOF Grooming, OT : Independent Prior LOF for IADLs, OT : Independent CONNOR WALTON OTR/Desiree - 10/29/2020 14:54 EST Upper Extremity Right UE Active ROM : WFL Left UE Active ROM : WFL CONNOR WALTON OTR/Desiree - 10/29/2020 14:54 EST Self Care/Home Management, OT Self Feeding Assist Level, OT : Supervision or set-up Grooming Assist Level, OT : Supervision or set-up Bathing Assist Level, OT : Assist, minimal Upper Body Dressing Assist Level, OT : Supervision or set-up Lower Body Dressing Assist Level, OT : Assist, minimal Toileting Assist Level : Assist, minimal Toilet Transfer Assist Level : Supervision or set-up CONNOR WALTON OTR/Desiree - 10/29/2020 14:54 EST Functional Mobility Mobility Grid Supine to Sit : Supervision/set-up Sit to Stand : Supervision/set-up Bed to Chair : Supervision/set-up Stand to Sit : Supervision/set-up CONNOR WALTON OTR/Desiree - 10/29/2020 14:54 EST Cognition Assessment, OT Orientation : Oriented x 4 CONNOR WALTON OTR/Desiree - 10/29/2020 14:54 EST Indication Assessment, OT Occupational Therapy Indicated : Yes Problem List, OT : Impaired, activities daily living, Impaired, endurance tolerance, Impaired functional mobility, Pain limiting function Potential Barriers, OT : None evident Rehabilitation Potential, OT : Good CONNOR WALTON OTR/Desiree - 10/29/2020 14:54 EST Plan of Care, OT OT Tx Plan/Goals Established w Patient : Yes OT Frequency Rehab : Five days per week OT Duration Rehab : Fourteen days OT Treatments Planned : Activities of daily living, Functional mobility training, Safety education, Therapeutic activities CONNOR WALTON OTR/Desiree - 10/29/2020 14:54 EST Long-Term Goals, OT Bathing LTG Grid Goal #1 Activity : Bathing Assist : Independent, modified Date to Meet : 11/12/2020 EST Goal Status : Initial goal CONNOR WALTON OTR/Desiree - 10/29/2020 14:54 EST Dressing, Lower Body LTG Grid Goal #1 Activity : Dressing, Lower Body Assist : Independent, modified Date to Meet : 11/12/2020 EST Goal Status : Initial goal CONNOR WALTON OTR/Desiree - 10/29/2020 14:54 EST Toileting LTG Grid Goal #1 Activity : Toileting Assist : Independent, modified Date to Meet : 11/12/2020 EST Goal Status : Initial goal CONNOR WALTON OTR/Desiree - 10/29/2020 14:54 EST Toilet Transfer LTG Grid Goal #1 Activity : Toilet Transfer, Ambulatory Assist : Independent, modified Date to Meet : 11/12/2020 EST Goal Status : Initial goal CONNOR WALTON OTR/Desiree - 10/29/2020 14:54 EST Treatment Note Subjective Comment : Pt was agreeable Patient's Response to Treatment : Pt tolerated eval well Additional Objective Information : Pt was found lying supine in bed. Pt was supervision for supine to sit, sit to stand, ambulation via RWX. Pt was min A for tolieting. Pt was supervision for stand to sit and sit to supine. Pt was left lying supine in bed with all needs met, call light within reach, and in room Assessment : Pt would benefit from OT services during hospitialization Plan for Treatment : see goals CONNOR WALTON OTR/Desiree - 10/29/2020 14:54 EST Anticipated Discharge Needs, OT/PT Anticipated Discharge to : Home, with family care CONNOR WALTON OTR/L - 10/29/2020 14:[address] [facility] OT Charges OT Selfcare/Hm Mgmt Ea 15 Min : 1 OT Eval Moderate Complexity : 1 CONNOR WALTON OTR/L - 10/29/2020 14:54 EST Electronically signed by Interface, [facility] Conversion Ammonia Distiller Cerner at 02/08/2023 12:33 PM CDT documented in this encounter Plan of Treatment Not on file documented as of this encounter Visit Diagnoses Not on filedocumented in this encounter
--- OUTSIDE RECORDS SUMMARY | 2025-05-25 12:57 | XMS_ITS | Referral Summary ---
Author Organization [employer] ([place], [place], [place], [place]) Address [address] [place] [address] Care Team Providers Care Change Director Name Role Phone Unavailable Primary Care Provider Unavailabl e Social History Tobacco Use Types Packs/Day Years Used Date Smoking Tobacco: Never Assessed Food Insecurity Answer Date Recorded Food run out past 12 months Not on file 06/2024 Food did not last past 12 months Not on file 10/30/2023 Employment Answer Date Recorded Help finding and keeping a job Not on file 0 10/30/2023 Family and Community Support Answer Adonay e Recorded Help with Day to Day Activities Not on file 10/30/2023 Feeling Lonely or Isolated Not on file 10/30 Educational Attainment Answer Date Keyon rded Speak language other than Yi at home Not on file 10/30/2023 Want help with school or training Not on file 10/30/2023 Substance Use Answer Date Recorded Used prescription meds for non-medical reasons N ot on file 10/30/2023 Used illegal drugs past 12 months Not on file 10/30/2023 Comments Unknown Sex and Gender Information Value Date Recorded Sex Assigned at Female 04/20/2022 12:25 PM CDT Legal Sex Male 5:58 PM CDT Gender Identity Female 04/20/2022 12:25 PM CDT Sexual Orientation Not on file Plan of Treatment Not on file
--- OUTSIDE RECORDS SUMMARY | 2025-05-25 12:57 | XMS_ITS | Encounter Summary ---
Author Organization [employer] ([place], [place], [place], [place]) Address [address] [place] [address] Care Team Providers Care Certified Personal Finance Counselor Name Role Phone Unavailable Primary Care Provider Unavailabl e Encounter Details Date Type Department Care Team (Late st Contact Info) Description 10/30/2020 Transcribed Document [facility] [place] Family Medicine [address] [place] [address] ProviderFarhan MD [address] [place] [address] Social History Tobacco Use Types [...] Cerner Conversion Note - Historical ProviderMD - 10/30/2020 10:45 AM DRYWALL SPRAYER UM Authorization Entered On: 10/30/2020 10:45 EST Performed On: 10/30/2020 10:45 EST by Ca Amaya Rn-Utilization Review Primary Insurance Authorization Authorization and Policy Numbers : Insurance 1 Health Plan: [employer] PPO Policy Number: [id number] Authorization Number: Insurance Primary Name : [employer] [id number] Auth/Referral Contact Name-Primary : Alfredo Casas Authorization Number-Primary : Pending, No Notes in STAR yet nothing on Availity as of yet Authorized Service Begin Date-Primary : 10/29/2020 EST Historical Authorization Comments-Primary : Comment 1: call to gael/dr slater office to obtain preauth #. She states no auth # yet. She will call [employer] to check on it and call me back (ROLF LUDWIG, RN-Utilization Review 10/28/2020 13:52) Comment 2: Pt is david for INPT Lumbar Fusion Posterior 3 Level on Sunday10-29-20 [employer] Choice: No auth notes in STAR or availity as of yet (DERICK SHIPMAN, Finishing Supervisor 10/28/2020 12:39) Ca Amaya, Rn-Utilization Review - 10/30/2020 10:45 EST Electronically signed by [facility], [facility] Conversion Used Car Sales Manager Cerner at 02/08/2023 12:31 PM CDT documented in this encounter Plan of Treatment Not on file documented as of this encounter Visit Diagnoses Not on filedocumented in this encounter
--- OUTSIDE RECORDS SUMMARY | 2025-05-25 12:57 | XMS_ITS | Encounter Summary ---
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 Name: FRANSISCO CRAVEN/Sex: 1960 Male Med Rec #: [id number] Physician: ADDIE VELIZ MD-SNU Financial #: [id number] Pt. Type: I Room/Bed: [facility]/ Admit/Disch: 10/29/20 12:20:00 - Institution: [facility] IntraOp Case Attendance Entry 1 Entry 2 Entry 3 Case Attendee ADDIE VELIZ MD-SNU WASSON, SANDRA D, RN CLARI NORRIS RN Role Performed Surgeon/Proceduralist, Train System Operator, First Train System Operator, Second First Time In 10/29/20 08:13:00 10/29/20 08:13:00 10/29/20 08:13:00 Time Out 10/29/20 10:35:00 10/29/20 10:35:00 10/29/20 10:35:00 Procedure Lumbar Fusion Posterior Lumbar Fusion Posterior Lumbar Fusion Posterior 3 Level 3 Level 3 Level Other Attendee ORIENTEE Superficial Wound Closed By: Last Modified By: TAE HERNANDEZ, TAE BARRIOS, RN TAE HERNANDEZ, RN 10/29/20 10:35:34 10/29/20 10:35:34 10/29/20 07:40:24 Entry 4 Entry 5 Entry 6 Case Attendee RAFAEL HAAS ST SIEGRIST, MEGHAN, PA ARRINGTON, ASHLEY, APRN Role Performed Scrub, First Physician spa assistant manager SKETCH MAKER/Nurse Manager Business Operations Time In 10/29/20 08:13:00 10/29/20 08:13:00 10/29/20 08:13:00 Time Out 10/29/20 10:35:00 10/29/20 10:35:00 10/29/20 10:35:00 Procedure Lumbar Fusion Posterior Lumbar Fusion Posterior Lumbar Fusion Posterior 3 Level 3 Level 3 Level Other Attendee Superficial Wound Closed By: Last Modified By: TAE HERNANDEZ, TAE BARRIOS, TAE BARRIOS, RN 10/29/20 10:35:34 10/29/20 10:35:34 10/29/20 10:35:34 Entry 7 Entry 8 Entry 9 Case Attendee Delma Escobedo, OTHER, ATTENDEE #1 ROCIO ALCALA RN Diagnostic Dermatopathologist Role Performed Pallet Assembler Vendor Train System Operator, Second Time In 10/29/20 08:13:00 10/29/20 08:13:00 10/29/20 08:35:00 Time Out 10/29/20 10:35:00 10/29/20 10:35:00 10/29/20 08:45:00 Procedure Lumbar Fusion Posterior Lumbar Fusion Posterior Lumbar Fusion Posterior 3 Level 3 Level 3 Level Other Attendee FRANC KONG Superficial Wound Closed By: Last Modified By: TAE HERNANDEZ, TAE BARRIOS, RN TEA HERNANDEZ, RN 10/29/20 10:35:34 10/29/20 08:31:47 10/29/20 08:40:39 Entry 10 Entry 11 Case Attendee PROMISE ZAMORANO Sawyer, Susan, DAVID-GENI Explosive Operator Bomb Role Performed SKETCH MAKER/Nurse Manager Business Operations Pallet Assembler Time In 10/29/20 09:43:00 10/29/20 09:44:00 Time Out 10/29/20 09:55:00 10/29/20 10:14:00 Procedure Lumbar Fusion Posterior Lumbar Fusion Posterior 3 Level 3 Level Other Attendee SKETCH MAKER BREAK RELIEF RT BREAK RELIEF Superficial Wound Closed By: Last Modified By: TAE HERNANDEZ, TAE BARRIOS, RN 10/29/20 09:44:46 10/29/20 09:44:46 [facility] IntraOp Case Attendance Audit 10/29/20 10:35:34 Universal Grinder Operator: WASSONSY Modifier: WASSONSY 1 <+> Time Out 1 <*> Procedure Lumbar Fusion Posterior 3 Level 2 <+> Time Out 2 <*> Procedure Lumbar Fusion Posterior 3 Level 3 <+> Time Out 3 <*> Procedure Lumbar Fusion Posterior 3 Level 4 <+> Time Out 4 <*> Procedure Lumbar Fusion Posterior 3 Level 5 <+> Time Out 5 <*> Procedure Lumbar Fusion Posterior 3 Level 6 <+> Time Out 6 <*> Procedure Lumbar Fusion Posterior 3 Level 7 <+> Time Out 7 <*> Procedure Lumbar Fusion Posterior 3 Level 8 <+> Time Out 8 <*> Procedure Lumbar Fusion Posterior 3 Level 9 <*> Procedure Lumbar Fusion Posterior 3 Level 10 <*> Procedure Lumbar Fusion Posterior 3 Level 11 <*> Procedure Lumbar Fusion Posterior 3 Level 10/29/20 10:19:58 Universal Grinder Operator: WASSONSY Modifier: WASSONSY 7 <-> Time Out 10/29/20 09:44:00 7 <*> Procedure Lumbar Fusion Posterior 3 Level 11 <+> Time Out 11 <*> Procedure Lumbar Fusion Posterior 3 Level 10/29/20 10:11:32 Universal Grinder Operator: WASSONSY Modifier: WASSONSY 7 <+> Time Out 7 <*> Procedure Lumbar Fusion Posterior 3 Level 10/29/20 09:55:51 Universal Grinder Operator: WASSONSY Modifier: WASSONSY 10 <*> Time Out 10/29/20 10:03:00 10 <*> Procedure Lumbar Fusion Posterior 3 Level 10/29/20 09:44:46 Universal Grinder Operator: WASSONSY Modifier: WASSONSY <+> 10 Case Attendee <+> 10 Role Performed <+> 10 Time In <+> 10 Time Out <+> 10 Procedure <+> 10 Other Attendee <+> 11 Case Attendee <+> 11 Role Performed <+> 11 Time In <+> 11 Procedure <+> 11 Other Attendee 10/29/20 08:40:39 Universal Grinder Operator: WASSONSY Modifier: WASSONSY <+> 9 Case Attendee <+> 9 Role Performed <+> 9 Time In <+> 9 Time Out <+> 9 Procedure 10/29/20 08:39:35 Universal Grinder Operator: WASSONSY Modifier: WASSONSY 1 <*> Procedure Lumbar Fusion Posterior 3 Level 2 <*> Procedure Lumbar Fusion Posterior 3 Level 3 <*> Procedure Lumbar Fusion Posterior 3 Level 4 <*> Procedure Lumbar Fusion Posterior 3 Level 5 <*> Procedure Lumbar Fusion Posterior 3 Level 6 <+> Time In 6 <*> Procedure Lumbar Fusion Posterior 3 Level 7 <+> Time In 7 <*> Procedure Lumbar Fusion Posterior 3 Level 8 <+> Time In 8 <*> Procedure Lumbar Fusion Posterior 3 Level 10/29/20 08:31:47 Universal Grinder Operator: WASSONSY Modifier: WASSONSY 1 <+> Time In 1 <*> Procedure Lumbar Fusion Posterior 3 Level 2 <+> Time In 2 <*> Procedure Lumbar Fusion Posterior 3 Level 3 <+> Time In 3 <*> Procedure Lumbar Fusion Posterior 3 Level 4 <+> Time In 4 <*> Procedure Lumbar Fusion Posterior 3 Level 5 <+> Time In 5 <*> Procedure Lumbar Fusion Posterior 3 Level <+> 6 Case Attendee <+> 6 Role Performed <+> 6 Procedure <+> 7 Case Attendee <+> 7 Role Performed <+> 7 Procedure <+> 8 Case Attendee <+> 8 Role Performed <+> 8 Procedure <+> 8 Other Attendee [facility] IntraOp Case Times Entry 1 Patient In Room Time 10/29/20 08:13:00 Out Room Time 10/29/20 10:35:00 Anesthesia Start Time 10/29/20 08:13:00 Stop Time 10/29/20 10:35:00 Surgery / Procedure Times Start Time 10/29/20 08:39:00 Stop Time 10/29/20 10:27:00 Last Modified By: TAE HERNANDEZ RN 10/29/20 10:28:15 [facility] IntraOp Case Times Audit 10/29/20 10:35:30 Universal Grinder Operator: WASSONSY Modifier: WASSONSY <+> 1 Out Room Time <+> 1 Stop Time 10/29/20 10:28:15 Universal Grinder Operator: WASSONSY Modifier: WASSONSY <+> 1 Stop Time 10/29/20 08:39:38 Universal Grinder Operator: WASSONSY Modifier: WASSONSY <+> 1 Start Time [facility] IntraOp Cautery Entry 1 Entry 2 ESU Identification Cautery Type Monopolar ESU BiPolar ESU Cautery Type Comments ID Number [id number] ID Type Hospital Number Hospital Number Cautery Settings Cut Setting 45 8 Coag Setting 45 45 Blend Setting Bipolar Setting Argon Setting Argon Santo ESU Grounding Pad Ground Pad Type Adult Grounding Pad Type Comment Grounding Pad Site Left thigh Grounding Pad Site Comment Grounding Pad CLARI NORRIS RN Applied By Grounding Pad Site Warm, dry and intact Skin Condition Before Cautery Site Skin Condition Before Comment Grounding Pad Site Unchanged Skin Condition After Cautery Site Skin Condition After Comment Last Modified By: TAE HERNANDEZ RN WASSON, SANDRA D, RN 10/29/20 08:47:23 10/29/20 08:47:23 [facility] IntraOp Cautery Audit 10/29/20 08:49:38 Universal Grinder Operator: WASSONSY Modifier: WASSONSY 1 <+> Grounding Pad Site 1 <*> Grounding Pad Applied By TAE HERNANDEZ RN [facility] IntraOp Communication Entry 1 Communication To Family/Significant other Comment START Communication By ROCIO ALCALA RN Date and Time 10/29/20 08:40:00 Last Modified By: TAE HERNANDEZ RN 10/29/20 08:40:48 [facility] IntraOp Counts Verification Entry 1 Entry 2 Procedure Lumbar Fusion Posterior Lumbar Fusion Posterior 3 Level 3 Level Count Info Count Type Sponge, Sharps, Sponge, Sharps, Miscellaneous Miscellaneous Counts Verification Baseline/pre-procedure Before wound closure Sequence Count Results Not Applicable Correct, surgeon notified If Incorrect or Waived complete the Counts Action Taken form: If Intentional Retention, complete the Intential Retention form: Counts Performed By Count Performed By RAFAEL HAAS ST LONG, PAULA R., ST (Scrub) Count Performed By CLARI NORRIS RN HICKAM, ANNA-LIESE, RN (RN) Last Modified By: TAE HERNANDEZ RN WASSON, SANDRA D, RN 10/29/20 08:30:57 10/29/20 10:20:15 [facility] IntraOp Counts Verification Audit 10/29/20 10:20:15 Universal Grinder Operator: WASSONSY Modifier: WASSONSY <+> 2 Procedure <+> 2 Count Type <+> 2 Counts Verification Sequence <+> 2 Count Results <+> 2 Count Performed By (Scrub) <+> 2 Count Performed By (RN) [facility] IntraOp Counts Final Entry 1 Procedure Lumbar Fusion Posterior 3 Level Final Count Info Count Type Sponge, Sharps, Miscellaneous Counts Verification Skin Closure/end of Sequence procedure Count Results Correct, surgeon notified Counts Performed By Count Performed By RAFAEL HAAS ST (Scrub) Count Performed By CLARI NORRIS RN (RN) Last Modified By: TAE HERNANDEZ RN 10/29/20 10:24:34 [facility] IntraOp Cultures and Spec Summary Entry 1 Cultrures and Specimens Specimen Ordered: Yes Test(s) Routine/Path-Lab Requested/Final Disposition Last Modified By: TAE HERNANDEZ RN 10/29/20 09:15:02 General Comments: A. EXPLANTED HARDWARE [facility] IntraOp Delays Entry 1 Delay Reason Surgeon late - did not call Duration 13 Minute(s) Last Modified By: TAE HERNANDEZ RN 10/29/20 08:50:02 [facility] IntraOp Departure from OR Entry 1 Integumentary Assessment Integumentary WDL Assessment WDL Transfer/Handoff Transfer to PACU Phase I Handoff Method Phone call Handoff Reported to Gabo Lim RN Post-op Transport Stretcher/Marilyn Via Patient Transport KAREN PEREA, Accompanied by MARY HERNANDEZ MEGHAN, PA Last Modified By: TAE HERNANDEZ RN 10/29/20 10:12:58 [facility] IntraOp Departure from OR Audit 10/29/20 10:12:58 Universal Grinder Operator: WASSONSY Modifier: WASSONSY <+> 1 Handoff Reported to 10/29/20 08:50:26 Universal Grinder Operator: WASSONSY Modifier: WASSONSY 1 <*> Post-op Transport Via Bed (including specialty) [facility] IntraOp Drains and Tubes Entry 1 Device Type Alcon Engel round drain Size 15 FR Drain/Tube Activity Inserted Drain/Tube Suction Bulb Drain/Tube Drainage Serosanguineous Device Location OP SITE Method of Drainage Compression Last Modified By: TAE HERNANDEZ RN 10/29/20 10:09:39 [facility] IntraOp Dressing and Packing Entry 1 Type Dressing Location back Wound Dressing Item Other Applied By CIRO HERNANDEZ PA Other Comments NEOSPORIN OINTMENT, COVADERMS Last Modified By: TAE HERNANDEZ RN 10/29/20 09:41:56 [facility] IntraOp Fire Risk Assessment Entry 1 Fire Info Surgical Site or 0- No Incision Above the Xyphoid Open O2 Source 0- No (Mask or Cannula) Available Ignition 1- Yes (ESU, Laser, Light Source) Fire Risk 1 Assessment Score Fire Score Fire Risk Yes Assessment Complete Fire Risk TAE HERNANDEZ sales representative uniforms Verified By Fire Risk 10/29/20 08:42:00 Assessment Verified Date/Time Fire Risk Standard Fire Yes Safety Precautions Followed Last Modified By: TAE HERNANDEZ RN 10/29/20 08:42:30 [facility] IntraOp General Case 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 Last Modified By: TAE HERNANDEZ RN 10/29/20 08:45:22 [facility] IntraOp General Case Data Audit 10/29/20 08:51:32 Universal Grinder Operator: WASSONSY Modifier: WASSONSY 1 <*> Preop Diagnosis LUMBAR STENOSIS 10/29/20 08:46:36 Universal Grinder Operator: WASSONSY Modifier: WASSONSY <+> 1 Preop Diagnosis [facility] IntraOp Implant Log Entry 1 Entry 2 Entry 3 Type Tissue Implant Implant (Synthetic) Implant (Synthetic) (Biologic) Implant Log Implant Type Hardware Hardware Tissue Implant Type Bone Implant BONE VIVIGEN FORMABLE SPACR OPAL-RSLV SCR JEREMIAS FIX Identification CELL [id number] Description Implant Quantity 1 2 4 Implant Site OP SITE OP SITE OP SITE Implant Identification Model Number Implant [id number] Identification Serial Number Implant Identification Lot Number Implant Lifenet:Lifenet Synthes:Synthes J&J:Depuy:Depuy Spine Identification Transplant Srv Usa:Spine Smoked Meat Preparer Name: Implant [id number] Identification Catalog Number Implant Size Implant Has an Yes Expiration Date Implant Expiration 09/30/21 Date Wasted Radioactive Material Time Implanted Tissue Implant Continue for Tissue Implant Documentation Tissue Identification Number Graft Prep Per Smoked Meat Preparer Instructions: Tissue Preparation Method: Reconstitution Solution: Reconstitution Solution Lot Number Reconstitution Solution Expiration Date: Thawing Solution Thawing Solution Lot Number Thawing Solution Expiration Date Preparation Materials, Other Preparation Materials, Other Lot Number Preparation Materials, Other Expiration Date Tissue Prepared/Processed By Smoked Meat Preparer Paperwork Completed Implant Type Comment Last Modified By: TAE HERNANDEZ, TAE BARRIOS RN WASSON, SANDRA D, RN 10/29/20 09:41:23 10/29/20 10:03:44 10/29/20 10:03:44 Entry 4 Entry 5 Entry 6 Type Implant (Synthetic) Implant (Synthetic) Implant (Synthetic) Implant Log Implant Type Hardware Hardware Hardware Tissue Implant Type Implant MIS FELA PLY SCRW SET LENNOX PRE LOAD [id number] LENNOX PRE LOAD [id number] Identification [id number] Description Implant Quantity 6 1 1 Implant Site OP SITE OP SITE OP SITE Implant Identification Model Number Implant Identification Serial Number Implant Identification Lot Number Implant J&J:Depuy:Depuy Spine J&J:Depuy:Depuy Spine J&J:Depuy:Depuy Spine Identification Smoked Meat Preparer Name: Implant [id number] Identification Catalog Number Implant Size Implant Has an Expiration Date Implant Expiration Date Wasted Radioactive Material Time Implanted Tissue Implant Continue for Tissue Implant Documentation Tissue Identification Number Graft Prep Per Smoked Meat Preparer Instructions: Tissue Preparation Method: Reconstitution Solution: Reconstitution Solution Lot Number Reconstitution Solution Expiration Date: Thawing Solution Thawing Solution Lot Number Thawing Solution Expiration Date Preparation Materials, Other Preparation Materials, Other Lot Number Preparation Materials, Other Expiration Date Tissue Prepared/Processed By Smoked Meat Preparer Paperwork Completed Implant Type Comment Last Modified By: TAE HERNANDEZ RN WASSON, SANDRA D RN TAE HERNANDEZ RN 10/29/20 10:03:44 10/29/20 10:03:44 10/29/20 10:03:44 [facility] IntraOp Implant Log Audit 10/29/20 10:03:44 Universal Grinder Operator: DAVIDARLEN Modifier: WASSONSY <+> 2 Implant Identification Description <+> 2 Implant Identification Smoked Meat Preparer Name: <+> 2 Implant Site <+> 2 Implant Quantity <+> 2 Implant Identification Catalog Number <+> 2 Implant Type <+> 2 Type <+> 3 Implant Identification Description <+> 3 Implant Identification Smoked Meat Preparer Name: <+> 3 Implant Site <+> 3 Implant Quantity <+> 3 Implant Identification Catalog Number <+> 3 Implant Type <+> 3 Type <+> 4 Implant Identification Description <+> 4 Implant Identification Smoked Meat Preparer Name: <+> 4 Implant Site <+> 4 Implant Quantity <+> 4 Implant Identification Catalog Number <+> 4 Implant Type <+> 4 Type <+> 5 Implant Identification Description <+> 5 Implant Identification Smoked Meat Preparer Name: <+> 5 Implant Site <+> 5 Implant Quantity <+> 5 Implant Identification Catalog Number <+> 5 Implant Type <+> 5 Type <+> 6 Implant Identification Description <+> 6 Implant Identification Smoked Meat Preparer Name: <+> 6 Implant Site <+> 6 Implant Quantity <+> 6 Implant Identification Catalog Number <+> 6 Implant Type <+> 6 Type [facility] IntraOp Intraoperative Assessment Entry 1 Handoff Method Bedside/Face to face, Online nursing summary Valid History / Yes Physical in Chart Preoperative Yes Checklist Reviewed/Evaluated Allergies Reviewed Yes Patient is Latex No Sensitive Isolation Not applicable Precautions Noted Level of WDL Consciousness (WDL = Alert, Oriented to Person, Place, and Time) Skin Assessment No Verified Present Upon IVs Arrival to OR Last Modified By: TAE HERNANDEZ RN 10/29/20 08:51:48 [facility] IntraOp Intraoperative Assessment Audit 10/29/20 08:51:48 Universal Grinder Operator: HOPEIANARLEN Modifier: DAVIDSY 1 <*> Skin Assessment Verified Yes 1 <*> Handoff Method Bedside/Face to face [facility] IntraOp Intraoperative Equipment Entry 1 Type Equipment Equipment Equipment Abelardo Suction System ID Number [id number] Setting 200 MM HG Intraop Monitoring Electrocardiogram Five lead placement (ECG) Electrode Placement Blood Pressure Non-Invasive BP Device Source Blood Pressure Arm, right upper Location Pulse Oximeter Hand, left Probe Site Antiembolic Devices Antiembolic Devices Sequential compression device, knee high Antiembolic Device Bilateral Location Antiembolic Device [id number] ID Number Antiembolic Device standard Setting Scopes Photo/Video Documentation Photo No Video No Last Modified By: TAE HERNANDEZ RN 10/29/20 08:46:20 [facility] IntraOp Intraoperative Equipment Audit 10/29/20 08:52:26 Universal Grinder Operator: WASSONSY Modifier: WASSONSY 1 <+> ID Number 1 <*> Setting 200 1 <+> Electrocardiogram (ECG) Electrode Placement 1 <+> Blood Pressure Location 1 <+> Pulse Oximeter Probe Site 1 <+> Blood Pressure Source 1 <+> Antiembolic Device ID Number [facility] IntraOp Medication Admin Entry 1 Entry 2 Entry 3 Medication/Irrigant thrombin 5000units SPNG SURGFOAM SEALR AQUAMANTYS BIPLR topical powder - [id number] Combo Med List Time Administered Route of topical TOPICAL OTHER Administration Dose Dose 5000 1 Unit of Measure units pkt Volume qs Administered By ADDIE VELIZ MD-ADDIE PASCUAL MD-ADDIE PASCUAL MD-SNNegrita Procedure Irrigation Irrigant Volume In Irrigant Volume Out Last Modified By: TAE HERNANDEZ, TAE BARRIOS, TAE BARRIOS RN 10/29/20 08:53:36 10/29/20 08:53:36 10/29/20 08:53:36 Entry 4 Medication/Irrigant Neosporin 15Gm ointment - [id number] Combo Med List Time Administered Route of TOPICAL Administration Dose Dose 1 Unit of Measure pkt Volume Administered By CIRO HERNANDEZ PA Procedure Irrigation Irrigant Volume In Irrigant Volume Out Last Modified By: TAE HERNANDEZ RN 10/29/20 08:53:36 [facility] IntraOp Medication Admin Audit 10/29/20 08:53:36 Universal Grinder Operator: WASSONSY Modifier: WASSONSY 1 <*> Medication/Irrigant thrombin 5000units topical powder - [id number] <+> 2 Medication/Irrigant <+> 2 Route of Administration <+> 2 Administered By <+> 2 Dose <+> 2 Unit of Measure <+> 3 Medication/Irrigant <+> 3 Route of Administration <+> 3 Administered By <+> 4 Medication/Irrigant <+> 4 Route of Administration <+> 4 Administered By <+> 4 Dose <+> 4 Unit of Measure [facility] IntraOp Patient Positioning Entry 1 Procedure Lumbar Fusion Posterior 3 Level Body Position Prone Left Arm Position Secured on padded arm board Right Arm Position Secured on padded arm board Left Leg Position Elevated Right Leg Position Elevated Feet Uncrossed Yes Pressure Points Yes Checked Positioning Devices Head Rest, Pad, Elbow, Pillows, Safety Strap, Thighs, Table, Spinal, Arm Board, Pad, Arm, Safety Strap, Arm(s) Device Position PRONE ON T3 TRUMPF FRAME WITH CHEST, HIP AND THIGH PADS Positioned By TAE HERNANDEZ RN, KAREN PEREA APRN, OWEN, ROBERT D, MD-TANVIR, CLARI NORRIS RN, CIRO HERNANDEZ PA Position Verified Positioning Yes Verified by Anesthesia Positioning Yes Verified by Surgeon Last Modified By: TAE HERNANDEZ RN 10/29/20 09:05:55 [facility] IntraOp Sign In Entry 1 Patient, Site, Yes Procedure Identified Surgical Consent Yes Confirmed Relevant Surgical Yes Documents Available Surgical Site N/A Marked by person performing procedure Anesthesia Machine Yes Check Completed Medication Checks Yes Completed Allergies Yes Airway Difficult Yes Airway/Aspiration Risk Difficult Yes Airway/Aspiration Intervention Equipment Available Blood Loss Risk Yes Blood Loss Yes Intervention Equipment Prepared and Ready Blood Identifiers Yes Verified Per Policy Hypothermia Risk Yes Warming Measures Yes Taken Last Modified By: TAE HERNANDEZ RN 10/29/20 08:54:11 [facility] IntraOp Sign In Audit 10/29/20 08:54:11 Universal Grinder Operator: HOPEIANSY Modifier: WASSONSY 1 <*> Surgical Site Marked by person Yes performing procedure 1 <*> Difficult Airway/Aspiration Risk No 1 <*> Blood Loss Risk No 1 <*> Blood Identifiers Verified Per Not applicable Policy [facility] IntraOp Sign Out Entry 1 RN Confirmation Surgical Yes Procedure(s) Identified Instrument, Sponge Yes and Sharps Counts Correct/Documented Equipment Problems N/A Documented Specimen Labeled N/A Correctly Urinary Catheter N/A Documented in IView Watson Patient Yes Recovery Concerns Reviewed with Anesthesia Provider, Surgeon and RN Watson Patient Yes Management Concerns Reviewed with Anesthesia Provider, Surgeon and RN Safety Checklist Yes Elements Complete? RN Sign Out TAE HERNANDEZ RN Signature RN Sign Out 10/29/20 10:35:00 Signature Date/Time Plan of Care Outcome - Fire Risk OUTCOME STATEMENT: Goal met Patient is free from injury related to surgical fire Plan of Care Outcome - Pt Positioning OUTCOME STATEMENT: Goal met Absence of signs and symptoms of positioning injury. Plan of Care Outcome - Skin Prep OUTCOME STATEMENT: Goal met Intraoperative care is consistent with measures to prevent infection Plan of Care Outcome - Xray/Images OUTCOME STATEMENT: Goal met Absence of observable signs or symptoms of radiation injury Plan of Care Outcome - Counts OUTCOME STATEMENT: Goal met Absence of signs and symptoms of injury related to extraneous objects Last Modified By: TAE HERNANDEZ RN 10/29/20 09:06:53 [facility] IntraOp Sign Out Audit 10/29/20 10:35:47 Universal Grinder Operator: MYAH Modifier: WASIANSY <+> 1 RN Sign Out Signature Date/Time [facility] IntraOp Skin Prep Entry 1 Procedure Lumbar Fusion Posterior 3 Level Prescribed Yes Pre-Surgical Prep Completed Prep Area back Intraop Prep Integumentary WDL Assessment WDL Prep Agents DuraPrep Prep by TAE HERNANDEZ, RN Hair Removal Methods No hair removal performed Last Modified By: TAE HERNANDEZ RN 10/29/20 08:45:47 [facility] IntraOp Surgical Procedures Entry 1 Procedure Lumbar Fusion Posterior 3 Level Additional (L3-5 PLIF USING AIRO) Procedure Description Primary Procedure Yes Primary Surgeon ADDIE VELIZ MD-SNU Start 10/29/20 08:39:00 Stop 10/29/20 10:27:00 Anesthesia Type General Specialty SN Neurosurgery Wound Class I - Clean Last Modified By: TAE HERNANDEZ RN 10/29/20 09:08:03 General Comments: CLLINDA [facility] IntraOp Surgical Procedures Audit 10/29/20 10:28:18 Universal Grinder Operator: MYAH Modifier: WASSONSY 1 <*> Stop [facility] IntraOp Temp Regulation Devices Entry 1 Temp Regulation Temperature Forced Air Warming Regulation Device device Temperature 83411 Regulation Device Serial/Unit Number Temperature Upper body Regulation Site Temperature Device 43 C Setting Temperature KAREN PEREA APRN Regulation Device Applied by Last Modified By: TAE HERNANDEZ RN 10/29/20 08:46:05 [facility] IntraOp Temp Regulation Devices Audit 10/29/20 09:06:09 Universal Grinder Operator: MYAH Modifier: MAYH <+> 1 Temperature Regulation Device Serial/Unit Number <+> 1 Temperature Device Setting [facility] IntraOP Time Out Entry 1 Procedure to be Lumbar Fusion Posterior Performed 3 Level Time Out Time Out Pause Time 10/29/20 08:38:00 All activity Yes suspended (unless life threatening emergency) Team Verbally Correct patient Confirms Information identity, Correct side and site are marked, Consent form is present and accurate, Agreement on the procedure to be done, Correct patient position, Relevant images/results properly labeled/appropriately displayed, Confirm antibiotics have been administered, Confirm the skin prep has dried, Confirm prosthesis/implant/devic e is present, Performed in location of procedure after prepped/draped Antibiotic Yes Prophylaxis Administered Or In Progress Within the Last 60 Minutes Beta Judd N/A Administered Venous Yes Thromboembolism Prophylaxis Required Anticipated Critical Events Surgeon None expected Anesthesia Provider None expected Nursing Assures Sterility of instruments, Equipment concerns or issues Essential Imaging Yes Labeled and Displayed Last Modified By: TAE HERNANDEZ RN 10/29/20 08:44:19 [facility] IntraOp X-Ray and Images Entry 1 X-Ray/Imaging Type Other Fluoroscopy Type Other Site back Interior Design Coordinator Name Delma Escobedo, Diagnostic Dermatopathologist Protective Devices Yes Used X-Ray and Imaging brainlab intraoperative Comment ct scanner Last Modified By: TAE HERNANDEZ RN 10/29/20 08:46:47 [facility] IntraOp X-Ray and Images Audit 10/29/20 09:06:27 Universal Grinder Operator: MYAH Modifier: MYAH <+> 1 Interior Design Coordinator Name Case Comments <None> Finalized By: DENNYS SANTO Document Signatures Signed By: TAE HERNANDEZ RN 10/29/20 10:35 DENNYS SANTO 10/30/20 16:24 Unfinalized History Date/Time Username Reason for Unfinalizing Freetext Reason for Unfinalizing 10/30/20 16:22 [id number] Correct Billing Electronically signed by Kaiely [facility] Conversion Weight Reduction Specialist Cerner at 02/08/2023 12:31 PM CDT documented in this encounter Plan of Treatment Not on file documented as of this encounter Visit Diagnoses Not on filedocumented in this encounter
--- OUTSIDE RECORDS SUMMARY | 2025-05-25 12:57 | XMS_ITS | Encounter Summary ---
Author Organization [employer] ([place], [place], [place]) Address [address] [place] [address] Care Team Providers Care Hosiery Mender Name Role Phone Unavailable Primary Care Provider Unavailabl e Encounter Details Date Type Department Care Team (Late st Contact Info) Description 10/31/2020 Transcribed Document [facility] [place] Family Medicine [address] [place] [address] ProviderFarhan MD [address] [id number] Social History Tobacco Use Types Packs/Day Years Used Date Smoking Tobacco: Never Assessed Comments Unknown Sex and Gender Information Value Date Recorded Sex Assigned at Female 04/20/2022 12:25 PM CDT Legal Sex Male 5:58 PM CDT Gender Identity Female 04/20/2022 12:25 PM CDT Sexual Orientation Not on file documented as of this encounter Miscellaneous Notes * Cerner Conversion Note - Historical ProviderMD - 10/31/2020 2:50 PM KEYBOARD INSTRUMENT REPAIRER Initial Discharge Planning Entered On: 10/31/2020 14:51 EST Performed On: 10/31/2020 14:50 EST by SHAWNEE MAYORGA RN-Web Marketing Specialist Initial Assessment I Previously Documented Living Environment : No qualifying data available. Living Situation : Home Patient Lives With : Spouse Is the Patient a Caregiver at Home? : No Emergency Contact #1 : Taylor Silvestre Emergency Contact #1 ` Emergency Contact #1 Relationship : ` Emergency Contact #2 : ` Emergency Contact #2 Phone Number : ` Emergency Contact #2 Relationship : ` Legal Guardian : No Is Guardianship Needed : No SHAWNEE MAYORGA RN-Web Marketing Specialist - 10/31/2020 14:50 EST Initial Assessment II Sensory and Motor Deficits : None Current Home Treatments and Equipment : None SHAWNEE MAYORGA RN-Web Marketing Specialist - 10/31/2020 14:50 EST Discharge Needs I Anticipated Discharge Date : 10/31/2020 EST Anticipated Discharge To, CM : Home with family care Current Home Treatment/Equipment : Current Home Treatment/Equipment No qualifying data available. Post Acute/Home Treatments : None Documentation Status Complete : Yes SHAWNEE MAYORGA RN-Web Marketing Specialist - 10/31/2020 14:50 EST Discharge Needs II Professional Skilled Services : Professional Skilled Services No qualifying data available. Needs Assistance with Transportation : No Discharge Options Discussed with Patient : Discharge transportation, DME, Home Health SHAWNEE MAYORGA RN-Web Marketing Specialist - 10/31/2020 14:50 EST documented in this encounter Plan of Treatment Not on file documented as of this encounter Visit Diagnoses Not on filedocumented in this encounter
--- OUTSIDE RECORDS SUMMARY | 2025-05-25 12:57 | XMS_ITS | Encounter Summary ---
Author Organization [employer] ([place], [place], [place], [place]) Address [address] [place] [address] Care Team Providers Care Scarfer Operator Name Role Phone Unavailable Primary Care Provider Unavailabl e Encounter Details Date Type Department Care Team (Late st Contact Info) Description 10/30/2020 Transcribed Document [facility] [place] Medicine [address] [place] [address] ProviderFarhan MD [address] [place] [address] Social History Tobacco Use Types [...] Conversion Note - Historical ProviderMD - 10/30/2020 5:00 AM CELLAR WORKER Chart Check - Review Order Profile Entered On: 10/30/2020 5:11 EST Performed On: 10/30/2020 5:00 EST by Sam Anton, RN Chart Check Powerplans Initiated/Discontinued as Appropriate : Yes All Active Orders Reviewed : Yes Sam Anton RN - 10/30/2020 5:11 EST Electronically signed by Kailey [facility] Conversion Fibrous Wallboard Inspector Mario at 02/08/2023 12:44 PM CDT documented in this encounter Plan of Treatment Not on file documented as of this encounter Visit Diagnoses Not on filedocumented in this encounter
--- OUTSIDE RECORDS SUMMARY | 2025-05-25 12:57 | XMS_ITS | Encounter Summary ---
Author Organization [employer] ([place], [place]) Address [address] [place] [address] Care Team Providers Care Dental Equipment Mechanic Name Role Phone Unavailable Primary Care Provider Unavailabl e Encounter Details Date Type Department Care Team (Late st Contact Info) Description 10/30/2020 Transcribed Document [facility] [place] Family Medicine [address] [place] [address] ProviderFarhan MD [address] [place] [address] Social History Tobacco Use Types [...] Conversion Note - Historical ProviderMD - 10/30/2020 10:50 AM PATHOLOGY LABORATORY DIRECTOR UM Authorization Entered On: 10/30/2020 10:50 EST Performed On: 10/30/2020 10:50 EST by Ca Amaya Rn-Utilization Review Primary Insurance Authorization Authorization and Policy Numbers : Insurance 1 Health Plan: [employer] PPO Policy Number: [id number] Authorization Number: Insurance Primary Name : [employer] [id number] Authorization Status-Primary : Pending Auth/Referral Contact Name-Primary : Alfredo Casas Reference Number-Primary : [id number] Authorization Number-Primary : Pending, No Notes in STAR yet nothing on Availity as of yet Authorized Service Begin Date-Primary : 10/29/2020 EST Authorization Comments-Primary : per availity auth pended Historical Authorization Comments-Primary : Comment 1: call [...] or availity as of yet (DERICK SHIPMAN, Technical Service Engineer 10/28/2020 12:39) Ca Amaya, Rn-Utilization Review - 10/30/2020 10:50 EST Electronically signed by Kailey [facility] Conversion Watch Case Polisher Cerner at 02/08/2023 12:35 PM CDT documented in this encounter Plan of Treatment Not on file documented as of this encounter Visit Diagnoses Not on filedocumented in this encounter
--- OUTSIDE RECORDS SUMMARY | 2025-05-25 12:57 | XMS_ITS | Encounter Summary ---
Author Organization [employer] ([place], [place], [place], [place]) Address [address] [place] [address] Care Team Providers Care Bicycle Taxi Driver Name Role Phone Unavailable Primary Care Provider Unavailabl e Encounter Details Date Type Department Care Team (Late st Contact Info) Description 10/29/2020 Transcribed Document [facility] [place] Family Medicine [facility] [place] [address] ProviderFarhan MD [address] [place] [address] Social History Tobacco Use Types [...] - Historical ProviderMD - 10/29/2020 10:34 AM ORDER BUILDER LOADER Evaluation, Physical Therapy Entered On: 10/29/2020 15:22 EST Performed On: 10/29/2020 14:05 EST by KATINA LIANG, KIARA General Information, PT Visit Type, PT : Initial evaluation Patient Orders : Order Date Order Ordering 10/29/2020 10:34 Physical Therapy Eval and Treat Ordered By: ADDIE VELIZ MD-U Active Diagnoses : No Qualifying Diagnoses Therapy Diagnosis, PT : decreased mobility due to back surgery Onset of Problem, PT : 10/29/2020 EST Admission Date : 10/29/2020 12:20 Co-treated by, PT : Occupational Therapist Personal Devices : Personal Devices No Devices Recorded Assistive Devices : Assistive Devices No Devices Recorded Precautions in Place : Fall prevention measures KATINA LIANG, PT - 10/29/2020 15:21 EST General Information Comment, PT : Pt admitted with back pain and had lumbar fusion by Dr. Veliz this morning. He had a prior L5-S1 surgery and this hardware was removed and he had an L3-4, L4-5 PLIF. Order in chart for a brace but none here yet. Pt has a history of prior L5-S1 surgery, arthritis, COPD, DM, greater trochanter pain syndrome, idiopathic aseptic bone necrosis, rotator cuff tear, RLS, spontaneous rupture of flexor tendons. KATINA LIANG, PT - 10/29/2020 15:23 EST General Status Patient Received Status : Supine in bed Treatment Start Time : 10/29/2020 13:40 EST Patient Left Status : Supine in bed, RN/PCT informed, Family/Visitors at bedside, All needs met and within reach (Comment: present [KATINA LIANG, PT - 10/29/2020 15:23 EST] ) Treatment End Time : 10/29/2020 14:05 EST Treatment Time : 25 Minute(s) Actual Treatment Time : 25 Minute(s) KATINA LIANG, PT - 10/29/2020 15:23 EST History and Environment Living Situation, Therapy : Home Patient Lives With : Spouse Persons Assisting Patient at Home : Spouse Professional Skilled Services : None Persons Providing Information : Patient Home Equipment Therapy, PT : None Home Setup : One story Stairs : Yes Stair Location(s) : Outside Outside Stairs, Number of Steps : 2 Railing Outside : No KATNIA LIANG, PT - 10/29/2020 15:23 EST Prior Level of Function PT GRID Prior LOF Ambulation, Household : Independent Prior LOF Ambulation, Community : Independent Prior LOF Bed Mobility : Independent Prior LOF Toileting : Independent Prior LOF Transfer : Independent KATINA LIANG, PT - 10/29/2020 15:23 EST Upper Extremity Upper Extremity Dominance : Right Right UE Active ROM : WFL Right UE Strength : WFL Left UE Active ROM : WFL Left UE Strength : WFL KATINA LIANG, PT - 10/29/2020 15:23 EST Lower Extremity RLE Active ROM : WFL Right LE Strength : WFL LLE Active ROM : WFL Left LE Strength : WFL KATINA LIANG, PT - 10/29/2020 15:23 EST Functional Mobility Mobility Grid Supine to Sit : Supervision/set-up Sit to Stand : Rehab Minimal assistance Stand to Sit : Rehab Minimal assistance Sit to Supine : Supervision/set-up KATINA LIANG, PT - 10/29/2020 15:23 EST Supine to Sit Device : Rails Sit to Stand Device : Belt, gait, Walker, front wheel KATINA LIANG, PT - 10/29/2020 15:23 EST Gait Training/Assessment, PT Weight Bearing Status Maintained : Yes Weight Bearing Status : Full Gait Assistance Level : Assist, minimal Walking Distance : 200', then 15 and 15' Ambulatory Devices : Gait belt, Walker, front wheel Gait Deviations : No Gait Training Comment : Order for brace in the chart but no brace in the room. KATINA LIANG, PT - 10/29/2020 15:23 EST Activity Tolerance, PT Activity Comment : Good for eval purposes. KATINA LIANG, PT - 10/29/2020 15:23 EST Cognition Assessment, PT Orientation : Oriented x 4 Safety/Judgment Comment : Good Follows Basic Command Assessment : Yes KATINA LIANG, PT - 10/29/2020 15:23 EST Edu Topics Physical Therapy Education Grid Balance Training : Needs further teaching Bed Mobility Training : Needs further teaching Gait Training : Needs further teaching Role of Physical Therapy : Verbalizes understanding Therapeutic Exercises : Needs further teaching Transfer Training : Needs further teaching KATINA LIANG, PT - 10/29/2020 15:23 EST Indication Assesessment, PT Physical Therapy Indicated : Yes PT Problem List : Impaired, bed mobility, Impaired, coordination/proprioception, Impaired, endurance tolerance, Impaired, gait, Impaired, stair mobility, Impaired, standing balance, Impaired, transfers Potential Barriers To Therapy : None evident Rehabilitation Potential : Good KATINA LIANG, PT - 10/29/2020 15:23 EST Plan of Care, PT PT Tx Plan/Goals Established w Patient : Yes PT Frequency Rehab : Daily, twice (bid) PT Duration Rehab : Seven Days PT Treatments Planned : Balance training, Bed mobility training, Gait training, Stair training, Therapeutic exercises, Transfer training KATINA LIANG, PT - 10/29/2020 15:23 EST Skilled Nursing Goals Mobility/Bed Mobility LTG PT Grid Goal #1 Goal #2 Activity : Supine to sit Sit to stand Assist : Independent, complete Independent, modified Equipment : Walker, front wheel Date to Meet : 11/05/2020 EST 11/05/2020 EST Goal Status : Intial Goal Intial Goal KATINA LIANG, PT - 10/29/2020 15:23 EST KATINA LIANG, PT - 10/29/2020 15:23 EST Ambulation LTG Grid Goal #1 Device : Walker, front wheel Distance : 300' Assist : Independent, modified Date to Meet : 11/05/2020 EST Goal Status : Intial Goal KATINA LIANG, PT - 10/29/2020 15:23 EST Stairs LTG Grid Goal #1 Device : None Number of Steps : 2 Handrail(s) : One handrail Assist : Independent, modified Date to Meet : 11/05/2020 EST Goal Status : Intial Goal KATINA LIANG, PT - 10/29/2020 15:23 EST Treatment Note Subjective Comment : Pt and his report that pt had back surgery here about 3 years ago and did well. He is hoping to go home Sunday or Sunday. present during eval. Additional Objective Information : Pt had already amb and returned to the room. He was sitting EOB, preparing to go supine when he asked if PT/OT could help him amb to the bathroom to use commode and wash hands. Assessment : Good amb with Rwx. Should do well to meet goals within a day or two, including stairs. Plan for Treatment : Cont PTx AZUL KATINA, PT - 10/29/2020 15:23 EST Pain Assessment Pain Scaled Used : 0-10 Pain scale Pain Score During-Intervention : 10 Location : Back Pain Comment : Pt reports he already had pain meds but still wants to walk because it might make his pain ease up. KATINA LIANG, PT - 10/29/2020 15:23 EST Image 1 - Images currently included in the form version of this document have not been included in the text rendition version of the form. Anticipated Discharge Needs, OT/PT Anticipated Discharge to : Home, with home health (Comment: S1 [KATINA LIANG, PT - 10/29/2020 15:23 EST] ) KATINA LIANG, PT - 10/29/2020 15:23 EST [facility] Charges PT Therap. Exercise 15 min : 1 PT Eval Low Complexity : 1 KATINA LIANG, PT - 10/29/2020 15:23 EST Electronically signed by [facility] Conversion Rigging Up Worker Vitorner at 02/08/2023 12:22 PM CDT documented in this encounter Plan of Treatment Not on file documented as of this encounter Visit Diagnoses Not on filedocumented in this encounter
--- OUTSIDE RECORDS SUMMARY | 2025-05-25 12:57 | XMS_ITS | Encounter Summary ---
Author Organization [employer] ([place], [place], [place], [place]) Address [address] [place] [address] Care Team Providers Care Mining Teacher Name Role Phone Unavailable Primary Care Provider Unavailabl e Encounter Details Date Type Department Care Team (Late st Contact Info) Description 10/30/2020 Transcribed Document [facility] [address] [facility] [address] [place] [address] Addie Veliz Jr., MD [address] [place] [address] Social History Tobacco Use Types Packs/Day Years Used Date Smoking Tobacco: Never Assessed Comments Unknown Sex and Gender Information Value Date Recorded Sex Assigned at Female 04/20/2022 12:25 PM CDT Legal Sex Male 5:58 PM CDT Gender Identity Female 04/20/2022 12:25 PM CDT Sexual Orientation Not on file documented as of this encounter Miscellaneous Notes * Cerner Conversion Note - Addie Veliz Jr., MD - 10/30/2020 1:06 PM EST Patient: FRANSISCO CRAVEN Age: 60 years Sex: Male : 1960 Associated Diagnoses: None Author: ADDIE VELIZ MD-SNU Afebrile vital signs stable. JESUS drain output for 20 and 24 overnight No major complaints. He has postop back pain. His leg pain feels much better. His walk down the hallway already. He wants to go home. His incision is clean dry and intact. JESUS output was bloody. He is standing and walking with a walker in the room. He looks great. Postop day #1 status post L3-5 fusion with L5-S1 hardware removal. He is doing really well. He needs to stay until tomorrow. He needs physical therapy. Pain control. Probably remove drain tomorrow and go home tomorrow. He requests [place] instead of Percocet when he goes home. I put a [place] prescription on his chart. I talked to his . They're both happy with the plan. documented in this encounter Plan of Treatment Not on file documented as of this encounter Visit Diagnoses Not on filedocumented in this encounter
--- OUTSIDE RECORDS SUMMARY | 2025-05-25 12:57 | XMS_ITS | Encounter Summary ---
Author Organization [employer] ([place], [place], [place], [place]) Address [address] [place] [address] Care Team Providers Care Ophthalmic Nurse Name Role Phone Unavailable Primary Care Provider Unavailabl e Encounter Details Date Type Department Care Team (Late st Contact Info) Description 10/31/2020 Transcribed Document [facility] Neurology - [address] [facility] [address] [place] [address] Addie Veliz Jr., MD [address] [place] [address] Social History Tobacco Use Types [...] Note - Addie Veliz Jr., MD - 10/31/2020 12:59 PM EST Patient: FRANSISCO CRAVEN Age: 60 years Sex: Male : 1960 Associated Diagnoses: None Author: ADDIE VELIZ MD-SNU Afebrile vital signs stable JESUS output overnight 55 mL. Serous mostly Sitting in chair. Looks great Clean dry intact 5 over 5 strength Comfortable Wants to go home DC drain DC home Patient and happy with the plan documented in this encounter Plan of Treatment Not on file documented as of this encounter Visit Diagnoses Not on filedocumented in this encounter
--- OUTSIDE RECORDS SUMMARY | 2025-05-25 12:57 | XMS_ITS | Encounter Summary ---
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 Role Phone Unavailable Primary Care Provider Unavailabl e Encounter Details Date Type Department Care Team (Late st Contact Info) Description 10/29/2020 Transcribed Document [facility] [address] [place] [address] Waylon Green Jr., MD [address] [place] [address] Social History Tobacco Use Types Packs/Day Years Used Date Smoking Tobacco: Never Assessed Comments Unknown Sex and Gender Information Value Date Recorded Sex Assigned at Female 04/20/2022 12:25 PM CDT Legal Sex Male 5:58 PM CDT Gender Identity Female 04/20/2022 12:25 PM CDT Sexual Orientation Not on file documented as of this encounter Miscellaneous Notes * Cerner Conversion Note - Waylon Green Jr., MD - 10/29/2020 11:45 AM EST DATE OF PROCEDURE: 10/29/2020 SURGEON: Waylon Green Jr, MD PREOPERATIVE DIAGNOSIS: Lumbar stenosis, status post L5-S1 fusion. POSTOPERATIVE DIAGNOSIS: Lumbar stenosis, status post L5-S1 fusion. PROCEDURES PERFORMED: 1. Removal of L5-S1 hardware. 2. L3-4, L4-5 posterior lumbar interbody fusion using Airo intraoperative CT scan and BrainLAB neuronavigation. FIELD NATURALIST: Enriqueta Carrillo PA-C. ANESTHESIA: General endotracheal anesthesia. ESTIMATED BLOOD LOSS: Less than 300 mL. COMPLICATIONS: None. SPECIMEN: Disk and old hardware. CONDITION: Stable to PACU. INDICATIONS FOR PROCEDURE: Mr. Silvestre is 60 years old. I performed an L5-S1 fusion few years ago. He did well, comes back with severe radicular leg pain on the left side. I saw him prior to surgery today. He actually has bilateral radicular leg pain. He had severe stenosis at L3-4 and L4-5. I thought he was a candidate for the above-mentioned procedure. Indication, risks, and benefits were explained. Consent was signed for surgery. DESCRIPTION OF PROCEDURE: After informed consent was obtained, the patient was brought to the operating room. General endotracheal anesthesia was induced routinely. He was carefully turned prone on the operating room table with torso resting on the chest, hip, and thigh pads. Arms were abducted and flexed. All pressure points were padded and protected, and he was secured to bed with straps per routine. Hair was clipped from the back. A midline incision was marked out. The back was widely prepped and draped in usual fashion. Prophylactic antibiotics were given. Fiducial array was Steri-Stripped to the gluteal area. We took a low-dose scan. This allowed me to place 2 fixation pins in the right posterior iliac crest. These were Steinmann pins, placed with a Knok drill under navigation. We used a pre-existing pin sites. Once the pins were placed, the permanent reference array base was clamped across and the construct was stable. The initial scan and pointer were used to localize the incision. I had opened up most of the old incision, extended up to a couple of inches. The incision was about 4 to 5 inches long. Scalpel was used to make the incision. Bovie cautery was used to dissect down the fascia and subperiosteal dissection performed exposing the L5 and the S1 hardware, and then the L2-3, L3-4, L4-5 facet complexes. The set screws were removed. The rods were removed, and then, the S1 pedicle screws were removed. The L5 pedicle screws on both sides were very solid. He had undergone a preop CT scan, which showed that he had a nice fusion. I then took a scan for navigational purposes. I used a pointer to select an entry point trajectory into the right L4 pedicle. I drilled the pedicle, advanced a gearshift probe under navigation, and tapped with a 6-0 tap. I placed a 7.0 x 45 screw on the right, then on the left, we placed similar screws at L3. Prior to placing each screw, I tapped palpated inside the tapped pedicle to make sure there was no breach. Bone purchase was good at each level. The spinous processes of L3 and L4 were removed with Leksell rongeur. The lamina was thinned out and the laminectomy was completed with Kerrison punches. We obtained a nice decompression of the lateral recess region bilaterally. There was severe lateral recess stenosis bilaterally and moderate foraminal stenosis at the L3 level. This was medial foraminal stenosis from ligamentum flavum. I could visualize and palpate the L3, the L4, and L5 nerve roots bilaterally and the things were nice and free. I retracted the thecal sac from left to right, at L4-5 and incised the disk and used 8, 9, 10 mm endplate caridad and placed a short PEEK Revolve interbody cage, an 11 mm tall cage, packed with allograft ViviGen and autograft bone from the laminectomy. It was tamped to the disk space and turned 90 degrees. I then tamped it more anteriorly using the pointer with an extension tip to estimate the depth and then we placed some cage in a similar fashion at L3-4. This also was a short 11 PEEK Revolve interbody cage packed with allograft ViviGen and autograft bone. Once the cages were placed, the david was placed on each side, then we compressed between each pedicle screw before tightening and torquing of the set screws. Once all 6 set screws were torqued, I palpated all the foramen again and there was no compression. A piece of Gelfoam was placed in each lateral recess region. I decorticated the posterolateral elements from L3-5, and laid allograft and autograft bone bilaterally. We took a scan, which confirmed an appropriate appearing construct. The fixation pins were removed. Meticulous hemostasis was confirmed. The superior stab incision was used to tunnel a 15-Maltese round epidural JESUS drain. A drain stitch was applied at skin level. Drain was cut to the appropriate length and placed in the epidural region. The muscle, fascia, Saurabh layer, and dermis were closed with interrupted Vicryl sutures. Skin closed with concetta. The bulb was fixed to the drain. The drain was functional. Dressing was applied and the patient went to recovery room in good condition. Enriqueta Carrillo PA-C assisted through the entire operation with tasks such as suctioning, soft tissue retraction, removal of old hardware, placement of new hardware, wound closure. /[id number] Waylon Green Jr, MD RDO/AQ / RDO / MODL /[id number] documented in this encounter Plan of Treatment Not on file documented as of this encounter Visit Diagnoses Not on filedocumented in this encounter
--- OUTSIDE RECORDS SUMMARY | 2025-05-25 12:57 | XMS_ITS | Encounter Summary ---
Author Organization [employer] ([place], [place], [place], [place]) Address [address] [place] [address] Care Team Providers Care Monotype Mechanic Name Role Phone Unavailable Primary Care Provider Unavailabl e Encounter Details Date Type Department Care Team (Late st Contact Info) Description 10/31/2020 Transcribed Document [facility] Family Medicine [address] [place] [address] ProviderFarhan MD [address] [place] [address] Social History Tobacco Use Types [...] Cerner Conversion Note - Farhan ProviderMD - 10/31/2020 2:52 PM [employer]TING [employer] GUIDE [facility] [place] [address] FRANSISCO CRAVEN :1960 Visit Time:10/29/2020 Your Visit Summary Your Care Team Admitting Physician - ADDIE VELIZ MD-TANVIR Attending Physician - ADDIE VELIZ MD-TANVIR Primary Care Physician - MANJEET HURLEY NP-FAM Referring Physician - MANJEET HURLEY NP-FAM Your Diagnosis Lumbar stenosis Other spondylosis with myelopathy, lumbar region, Other spondylosis with myelopathy, lumbar region Discharge Vitals Temperature 36.4 ??C Heart Rate (Monitored) 80 Respiratory Rate 16 Blood Pressure 102/66 What to do next Instructions From Your Care Team STOP taking the following medications: 1) tramadol (Ultram)--this will be replaced by Osceola (hydrocodone-acetaminophen) call MD for fever greater than 101 degrees for 24 hours; increased pain,redness or swelling and/or drainage after 5 days Follow-Up Appointments Follow Up with ADDIE VELIZ When Within 2 weeks Nirali hylton Where: [address] [place] [address] [address] [place] [address] [employer] (1) Medications What How Much When Instructions Next Dose acetaminophen-hydrocodone (Osceola 10 mg-325 mg oral tablet) 1 Tablet(s) Oral Every 6 Hours as needed for for pain any time ergocalciferol (Vitamin D2) 50,000 International Units Oral Weekly taken on aspirin 81 Milligram(s) Oral Every Day 11/01 @ 9am atorvastatin (atorvastatin 20 mg oral tablet) 1 Tablet(s) Oral Every Day 10/31 @ 10pm diazepam 5 Milligram(s) Oral As needed for as needed for anxiety any time empagliflozin (Jardiance 25 mg oral tablet) 1 Tablet(s) Oral Every Morning 11/01 @ 9am inFLIXimab (Inflectra 100 mg intravenous injection) 1 Infusion IntraVENous Every 8 Weeks levothyroxine 200 Microgram(s) Oral Every Day 11/01 @ 7am lisinopril 40 Milligram(s) Oral Every Day 11/01 @ 9am loratadine (loratadine 10 mg oral tablet) 1 Tablet(s) Oral Every Day 11/01 @ 9am metFORMIN 1,000 Milligram(s) Oral Two Times A Day 10/31 @ 8pm predniSONE (predniSONE 5 mg oral tablet) 1 Tablet(s) Oral Every Day 11/01 @ 9am pregabalin (Lyrica 225 mg oral capsule) 1 Capsule(s) Oral Two Times A Day 10/31 @ 8pm raNITIdine (ranitidine) 75 Milligram(s) Oral Every Day 11/01 @ 9am venlafaxine (venlafaxine extended release) 150 Milligram(s) Oral Every Day 11/01 @ 9am Take your medications faithfully. Do NOT skip medication. Do NOT stop taking medications without the direction of a physician. Carry a list of your medications with you at all times, and take this medication list with you to your first follow up visit. Report any side effects. Avoid herbal remedies unless discussed with your physician. As part of your treatment plan, your physician may have prescribed a limited course of a controlled substance. This medication may be given to help people with moderate or severe pain or for other medical conditions, but there are risks involved with treatment. Common side effects may include nausea, constipation, drowsiness, sweating, itching, dry mouth, and rash. More serious side effects may include cognitive and motor impairment, like problems with thinking, concentrating, alertness, and movement (e.g. slowed reflexes), and driving and operating heavy machinery can be dangerous. It is important for you to talk to your physician if you have these side effects or questions. These controlled substances can produce physical dependence and be habit-forming if taken for an extended period of time, which means that the body has gotten used to them and may experience withdrawal symptoms if they are abruptly stopped. Withdrawal symptoms can include runny nose, sweating, goose bumps, diarrhea, abdominal cramping, rapid heartbeat, difficulty sleeping, and nervousness. Please dispose of unused and medications per your retail pharmacy guidance. Allergies penicillin (Rash) Immunizations This Visit No Immunizations Found Education Materials Spinal Fusion, Adult, Care After This sheet gives you information about how to care for yourself after your procedure. Your doctor may also give you more specific instructions. If you have problems or questions, contact your doctor. Follow these instructions at home: Medicines ??? Take qevs-fpb-rtouiov and prescription medicines only as told by your doctor. These include any medicines for pain or blood-thinning medicines (anticoagulants). ??? If you were prescribed an antibiotic medicine, take it as told by your doctor. Do not stop taking the antibiotic even if you start to feel better. ??? Do not drive for 24 hours if you were given a medicine to help you relax (sedative) during your procedure. ??? Do not drive or use heavy machinery while taking prescription pain medicine. If you have a brace: ??? Wear the brace as told by your doctor. Take it off only as told by your doctor. ??? Keep the brace clean. Managing pain, stiffness, and swelling ??? If directed, put ice on the surgery area: ? If you have a removable brace, take it off as told by your doctor. ? Put ice in a plastic bag. ? Place a towel between your skin and the bag. ? Leave the ice on for 20 minutes, 2???3 times a day. Surgery cut care ??? Follow instructions from your doctor about how to take care of your cut from surgery (incision). Make sure you: ? Wash your hands with soap and water before you change your bandage (dressing). If you cannot use soap and water, use hand supervisor stitching department. ? Change your bandage as told by your doctor. ? Leave stitches (sutures), skin glue, or skin tape (adhesive) strips in place. They may need to stay in place for 2 weeks or longer. If tape strips get loose and curl up, you may trim the loose edges. Do not remove tape strips completely unless your doctor says it is okay. ??? Keep your cut from surgery clean and dry. ? Do not take baths, swim, or use a hot tub until your doctor says it is okay. ? Ask your doctor if you can take showers. You may only be allowed to take sponge baths. ??? Every day, check your cut from surgery and the area around it for: ? More redness, swelling, or pain. ? Fluid or blood. ? Warmth. ? Pus or a bad smell. ??? If you have a drain tube, follow instructions from your doctor about caring for it. Do not take out the drain tube or any bandages unless your doctor says it is okay. Physical activity ??? Rest and protect your back as much as possible. ??? Follow instructions from your doctor about how to move. Use good posture to help your spine heal. ??? Do not lift anything that is heavier than 8 lb (3.6 kg), or the limit that you are told, until your doctor says that it is safe. ??? Do not twist or bend at the waist until your doctor says it is okay. ??? It is best if you: ? Do not make pushing and pulling motions. ? Do not sit or lie down in the same position for a long time. ? Do not raise your hands or arms above your head. ??? Return to your normal activities as told by your doctor. Ask your doctor what activities are safe for you. Rest and protect your back as much as you can. ??? Do not start to exercise until your doctor says it is okay. Ask your doctor what kinds of exercise you can do to make your back stronger. General instructions ??? To prevent blood clots and lessen swelling in your legs: ? Wear compression stockings as told. ? Walk one or more times every few hours as told by your doctor. ??? Do not use any products that contain nicotine or tobacco, such as cigarettes and e-cigarettes. These can delay bone healing. If you need help quitting, ask your doctor. ??? To prevent or treat constipation while you are taking prescription pain medicine, your doctor may suggest that you: ? Drink enough fluid to keep your pee (urine) pale yellow. ? Take vmxu-jbc-kwmfwes or prescription medicines. ? Eat foods that are high in fiber. These include fresh fruits and vegetables, whole grains, and beans. ? Limit foods that are high in fat and processed sugars, such as fried and sweet foods. ??? Keep all follow-up visits as told by your doctor. This is important. Contact a doctor if: ??? Your pain gets worse. ??? Your medicine does not help your pain. ??? Your legs or feet get painful or swollen. ??? Your cut from surgery is more red, swollen, or painful. ??? Your cut from surgery feels warm to the touch. ??? You have: ? Fluid or blood coming from your cut from surgery. ? Pus or a bad smell coming from your cut from surgery. ? A fever. ? Weakness or loss of feeling (numbness) in your legs that is new or getting worse. ? Trouble controlling when you pee (urinate) or poop (have a bowel movement). ??? You feel sick to your stomach (nauseous). ??? You throw up (vomit). Get help right away if: ??? Your pain is very bad. ??? You have chest pain. ??? You have trouble breathing. ??? You start to have a cough. These symptoms may be an emergency. Do not wait to see if the symptoms will go away. Get medical help right away. Call your local emergency services (911 in the [place] Do not drive yourself to the hospital. Summary ??? After the procedure, it is common to have pain in your back and pain by your surgery cut(s). ??? Icing and pain medicines may help to control the pain. Follow directions from your doctor. ??? Rest and protect your back as much as possible. Do not twist or bend at the waist. ??? Get up and walk one or more times every few hours as told by your doctor. This information is not intended to replace advice given to you by your health care provider. Make sure you discuss any questions you have with your health care provider. Document Released: 02/01/2012 Document Revised: 01/29/2020 Document Reviewed: 01/22/2018 [email or web address] Patient Education ?? 2020 [employer]. acetaminophen and hydrocodone (a SEET a MIN oh fen and michael droe KOE done) Hycet, Lorcet, Osceola, Verdrocet, Vicodin, Xodol, Zamicet What is the most important information I should know about acetaminophen and hydrocodone? MISUSE OF OPIOID MEDICINE CAN CAUSE ADDICTION, OVERDOSE, OR . Keep the medication in a place where others cannot get to it. Taking opioid medicine during may cause life-threatening withdrawal symptoms in the . Fatal side effects can occur if you use opioid medicine with alcohol, or with other drugs that cause drowsiness or slow your breathing. Stop taking this medicine and call your doctor right away if you have skin redness or a rash that spreads and causes blistering and peeling. What is acetaminophen and hydrocodone? Acetaminophen and hydrocodone is a combination medicine used to relieve moderate to severe pain. Acetaminophen and hydrocodone may also be used for purposes not listed in this medication guide. What should I discuss with my healthcare provider before taking acetaminophen and hydrocodone? You should not use this medicine if you are allergic to acetaminophen or hydrocodone, or if you have: ?? severe asthma or breathing problems; or ?? a blockage in your stomach or intestines. Tell your doctor if you have ever had: ?? breathing problems, sleep apnea; ?? liver disease; ?? a drug or alcohol addiction; ?? kidney disease; ?? a head injury or seizures; ?? urination problems; or ?? problems with your thyroid, pancreas, or gallbladder. If you use opioid medicine while you are , your baby could become dependent on the drug. This can cause life-threatening withdrawal symptoms in the baby after it is born. Babies born dependent on opioids may need medical treatment for several weeks. Do not breastfeed. This medicine can pass into breast milk and cause drowsiness, breathing problems, or in a nursing baby. How should I take acetaminophen and hydrocodone? Follow all directions on your prescription label. Never take this medicine in larger amounts, or for longer than prescribed. An overdose can damage your liver or cause . Tell your doctor if you feel an increased urge to use more of this medicine. Never share this medicine with another person, especially someone with a history of drug abuse or addiction. MISUSE CAN CAUSE ADDICTION, OVERDOSE, OR . Keep the medicine in a place where others cannot get to it. Selling or giving away acetaminophen and hydrocodone is against the law. Measure liquid medicine carefully. Use the dosing syringe provided, or use a medicine dose-measuring device (not a kitchen spoon). If you need surgery or medical tests, tell the doctor ahead of time that you are using this medicine. You should not stop using this medicine suddenly. Follow your doctor's instructions about tapering your dose. Store at room temperature away from moisture and heat. Keep track of your medicine. You should be aware if anyone is using it improperly or without a prescription. Do not keep leftover opioid medication. Just one dose can cause in someone using this medicine accidentally or improperly. Ask your pharmacist where to locate a drug take-back disposal program. If there is no take-back program, flush the unused medicine down the toilet. What happens if I miss a dose? Since this medicine is used for pain, you are not likely to miss a dose. Skip any missed dose if it is almost time for your next dose. Do not use two doses at one time. What happens if I overdose? Seek emergency medical attention or call the Poison Help line at . An overdose of acetaminophen and hydrocodone can be fatal. The first signs of an acetaminophen overdose include loss of appetite, nausea, vomiting, stomach pain, sweating, and confusion or weakness. Later symptoms may include pain in your upper stomach, dark urine, and yellowing of your skin or the whites of your eyes. Overdose can also cause severe muscle weakness, pinpoint pupils, very slow breathing, extreme drowsiness, or coma. What should I avoid while taking acetaminophen and hydrocodone? Avoid driving or operating machinery until you know how this medicine will affect you. Dizziness or drowsiness can cause falls, accidents, or severe injuries. Do not drink alcohol. Dangerous side effects or could occur. Ask a doctor or pharmacist before using any other medicine that may contain acetaminophen (sometimes abbreviated as APAP). Taking certain medications together can lead to a fatal overdose. What are the possible side effects of acetaminophen and hydrocodone? Get emergency medical help if you have signs of an allergic reaction: hives; difficulty breathing; swelling of your face, lips, tongue, or throat. Opioid medicine can slow or stop your breathing, and may occur. A person caring for you should seek emergency medical attention if you have slow breathing with long pauses, blue colored lips, or if you are hard to wake up. In rare cases, acetaminophen may cause a severe skin reaction that can be fatal. This could occur even if you have taken acetaminophen in the past and had no reaction. Stop taking this medicine and call your doctor right away if you have skin redness or a rash that spreads and causes blistering and peeling. Call your doctor at once if you have: ?? noisy breathing, sighing, shallow breathing, breathing that stops during sleep; ?? a light-headed feeling, like you might pass out; ?? liver problems--nausea, upper stomach pain, tiredness, loss of appetite, dark urine, kevin-colored stools, jaundice (yellowing of the skin or eyes); or ?? low cortisol levels-- nausea, vomiting, loss of appetite, dizziness, worsening tiredness or weakness. Seek medical attention right away if you have symptoms of serotonin syndrome, such as: agitation, hallucinations, fever, sweating, shivering, fast heart rate, muscle stiffness, twitching, loss of coordination, nausea, vomiting, or diarrhea. Serious side effects may be more likely in older adults and those who are overweight, malnourished, or debilitated. Long-term use of opioid medication may affect fertility (ability to have children) in men or women. It is not known whether opioid effects on fertility are permanent. Common side effects include: ?? dizziness, drowsiness, feeling tired; ?? nausea, vomiting, stomach pain; ?? constipation; or ?? headache. This is not a complete list of side effects and others may occur. Call your doctor for medical advice about side effects. You may report side effects to FDA at 6-957-RJZ-1088. What other drugs will affect acetaminophen and hydrocodone? You may have breathing problems or withdrawal symptoms if you start or stop taking certain other medicines. Tell your doctor if you also use an antibiotic, antifungal medication, heart or blood pressure medication, seizure medication, or medicine to treat HIV or hepatitis C. Opioid medication can interact with many other drugs and cause dangerous side effects or . Be sure your doctor knows if you also use: ?? cold or allergy medicines, bronchodilator asthma/COPD medication, or a diuretic ('water pill'); ?? medicines for motion sickness, irritable bowel syndrome, or overactive bladder; ?? other narcotic medications--opioid pain medicine or prescription cough medicine; ?? a sedative like Valium--diazepam, alprazolam, lorazepam, Xanax, Klonopin, Versed, and others; ?? drugs that make you sleepy or slow your breathing--a sleeping pill, muscle relaxer, medicine to treat mood disorders or mental illness; ?? drugs that affect serotonin levels in your body--a stimulant, or medicine for depression, Parkinson's disease, migraine headaches, serious infections, or nausea and vomiting. This list is not complete. Other drugs may affect acetaminophen and hydrocodone, including prescription and lbzs-dry-tmggaga medicines, vitamins, and herbal products. Not all possible interactions are listed here. Where can I get more information? Your doctor or pharmacist can provide more information about acetaminophen and hydrocodone. Remember, keep this and all other medicines out of the reach of children, never share your medicines with others, and use this medication only for the indication prescribed. Every effort has been made to ensure that the information provided by [employer] ('[employer]') is accurate, up-to-date, and complete, but no guarantee is made to that effect. Drug information contained herein may be time sensitive. [employer] information has been compiled for use by healthcare practitioners and consumers in the [place] and therefore [employer] does not warrant that uses outside of the [place] are appropriate, unless specifically indicated otherwise. [employer] drug information does not endorse drugs, diagnose patients or recommend therapy. [employer] drug information is an informational resource designed to assist licensed healthcare practitioners in caring for their patients and/or to serve consumers viewing this service as a supplement to, and not a substitute for, the expertise, skill, knowledge and judgment of healthcare practitioners. The absence of a warning for a given drug or drug combination in no way should be construed to indicate that the drug or drug combination is safe, effective or appropriate for any given patient. [employer] does not assume any responsibility for any aspect of healthcare administered with the aid of information [employer] provides. The information contained herein is not intended to cover all possible uses, directions, precautions, warnings, drug interactions, allergic reactions, or adverse effects. If you have questions about the drugs you are taking, check with your doctor, nurse or pharmacist. Copyright 1926-5542 [employer]. Version: 16.01. Revision Date: 11/12/2019. Emergency Awareness and Preventative Care STROKE is an EMERGENCY Every Minute Counts Act FAST and Check for these signs: FACE Does the face look uneven? ARM Does one arm drift down? SPEECH Does their speech sound strange? TIME Call at any sign of stroke Stroke Risk Factors Atrial Fibrillation (irregular heartbeat) Diabetes Family history of stroke Heart Disease Heavy alcohol use High Blood Pressure High Cholesterol Physical inactivity and obesity Smoking Cigarette Smoking The facts are clear, cigarette smoking will shorten your life. Smoking can cause many illnesses along the way. As a healthcare provider, we recommend that you stop smoking. Assistance with quitting is available by contacting 9-003-LLES-NOW. This is a free resource providing counseling, support, and referral. Or you may contact your personal physician. National Suicide Prevention Lifeline: The National Suicide Prevention Lifeline is a national network of local crisis centers that provides free and confidential emotional support to people in suicidal crisis or emotional distress 24 hours a day, 7 days a week. Don't Wait! Stop a Heart Attack Before it Starts What is a heart attack? A heart attack is damage or to a part of the heart from severely decreased or lack of blood flow to the heart. Over time, arteries can become narrow from the buildup of fat and cholesterol, which is called plaque. The plaque can rupture causing a blood clot to form. When the blood clot forms, the artery can become severely narrowed or completely blocked, causing a heart attack. Heart attack is the leading cause of in the [place]. 85% of muscle damage occurs within the first 2 hours. Delay in the recognition of heart attack symptoms increases the chances of . Know the early symptoms of a heart attack: Nausea Feeling of fullness in chest Jaw Pain Pain that travels down one or both arms Fatigue/being tired Anxiety Back Pain Chest pressure, squeezing, or discomfort Shortness of breath Sweating, or a cold sweat Feeling of impending doom There are unusual signs of a heart attack, too! Women, the elderly, and diabetics may present with atypical symptoms: Fainting/dizziness Weakness Confusion Risk Factors for a Heart Attack Some heart disease risk factors, such as age and family history, cannot be changed. Others, like smoking and lack of exercise, can be changed. Smoking High Cholesterol High Blood Pressure Family History Obesity Age Gender (Males are at higher risk) Lack of Exercise Diabetes Diet Stress Excessive Alcohol Intake If you or someone you know is experiencing the signs and symptoms of a heart attack, DON???T DELAY. Call immediately and seek help. If someone collapses, perform CPR! Do not attempt to drive if you are having symptoms of heart attack. Hands-Only CPR Why Hands-Only CPR? Hands-Only CPR has been shown to be as effective as conventional CPR for cardiac arrests that occur outside of a hospital. Survival depends on immediately receiving CPR from someone nearby. How do you perform Hands-Only CPR? There are two easy steps: Call if you see a teen or adult collapse Push hard and fast in the center of the chest at a beat of 100 beats per minute. Save a life! 4 WAYS TO GET AHEAD OF SEPSIS SEPSIS is a MEDICAL EMERGENCY. Time matters! Infections put you and your family at risk for a life-threatening condition called sepsis. Sepsis is the body's extreme response to an infection. It is life-threatening, and without timely treatment, sepsis can rapidly lead to tissue damage, organ failure, and . Sepsis happens when an infection you already have-in your skin, lungs, urinary tract or somewhere else-triggers a chain reaction throughout your body. 1 PREVENT INFECTIONS Take good care of chronic conditions. Talk to your doctor about getting the recommended vaccines. 2 PRACTICE GOOD HYGIENE Wash your hands frequently. Keep cuts or open sores clean and covered until they are healed. 3 KNOW THE SYMPTOMS Confusion or disorientation Shortness of breath High heart rate Fever, shivering, or feeling very cold Extreme pain or discomfort Clammy or sweaty skin 4 ACT FAST Get medical care IMMEDIATELY if you suspect sepsis or if you have an infection that is not getting better or is getting worse. To learn more about sepsis and how to prevent infections, visit www.cdc.gov/sepsis. Test Results Laboratory or Other Results This Visit (last charted value for your 10/29/2020 visit) Hematology 10/30/2020 2:08 PM WBC: 14.7 K/uL -- Normal range between ( 3.6 and 9.5 ) RBC: 4.45 Million/uL -- Normal range between ( 4.20 and 5.70 ) Hct: 41.4 % -- Normal range between ( 40.1 and 51.0 ) Hgb: 13.7 g/dL -- Normal range between ( 13.5 and 17.3 ) Platelet Count: 185 K/uL -- Normal range between ( 163 and 369 ) MCH: 30.8 pg -- Normal range between ( 25.6 and 32.2 ) MCHC: 33.1 Gram/dL -- Normal range between ( 32.2 and 36.5 ) MCV: 93.0 fL -- Normal range between ( 79.0 and 94.8 ) Slide Review: No Eos %: 0.2 % -- Normal range between ( 0.0 and 7.0 ) [place] #: 1.07 K/uL -- Normal range between ( 0.16 and 1.00 ) Eos #: 0.03 x10(3)/uL -- Normal range between ( 0.00 and 0.80 ) [place] %: 7.3 % -- Normal range between ( 3.0 and 9.0 ) Baso %: 0.3 % -- Normal range between ( 0.0 and 1.5 ) Baso #: 0.04 x10(3)/uL -- Normal range between ( 0.00 and 0.20 ) RDW: 14.1 % -- Normal range between ( 11.7 and 14.9 ) Neut %: 79.5 % -- Normal range between ( 34.0 and 71.0 ) Neut #: 11.73 K/uL -- Normal range between ( 1.56 and 6.13 ) Lymph %: 11.8 % -- Normal range between ( 19.3 and 53.1 ) Lymph #: 1.74 x10(3)/uL -- Normal range between ( 1.00 and 3.90 ) MPV: 10.1 fL -- Normal range between ( 9.4 and 12.4 ) IG#: 0.13 x10(3)/uL -- Normal range between ( 0.00 and 0.05 ) IG%: 0.90 % -- Normal range between ( 0.00 and 0.60 ) Urinalysis 10/27/2020 11:20 AM Urine Nitrite: Negative Urine Leukocyte Esterase: Negative Urine Appearance: Clear Urine Glucose Dipstick: >=1000 Urine Blood Dipstick: Negative Urine Urobilinogen Dipstick: 0.2 EU/dL Urine Protein Dipstick: Negative Ur Bacteria: Trace Ur Squamous Epithelial Cells: 0-2 /HPF Urine Color: Yellow Ur WBC: 0-2 /HPF Urine Ketones Dipstick: Negative Ur Mucous: Trace Urine pH Dipstick: 5.5 -- Normal range between ( 6.0 and 8.0 ) Urine Bilirubin Dipstick: Negative Urine Specific [place]: *1.028 -- Normal range between ( 1.005 and 1.030 ) Urine Type.: U CleanCatch Microbiology 10/27/2020 10:40 AM Novel Coronavirus 2019: Negative Blood Bank 10/27/2020 11:20 AM ABO/Rh (ECHO): O POS Antibody Screen: Negative ABSC General Chemistry 10/31/2020 5:39 AM Glucose POC2: 164 mg/dL -- Normal range between ( 70 and 110 ) Device Comment 1: Device Comment 1 10/30/2020 2:08 PM Creatinine Level: 1.20 mg/dL -- Normal range between ( 0.70 and 1.30 ) Sodium Level: 133 mmol/L -- Normal range between ( 136 and 146 ) Potassium Level: 4.1 mmol/L -- Normal range between ( 3.5 and 5.1 ) Chloride Level: 98 mmol/L -- Normal range between ( 102 and 112 ) Carbon Dioxide Level: 24 mmol/L -- Normal range between ( 21 and 32 ) Anion Gap: 15 -- Normal range between ( 9 and 20 ) Bun/Creatinine: 11.5 -- Normal range between ( 8.0 and 20.0 ) Calcium Level: 9.0 mg/dL -- Normal range between ( 8.4 and 10.1 ) eGFR : >60 mL/min/1.73m2 eGFR NonAfrican: >60 mL/min/1.73m2 Glucose Level: 265 mg/dL -- Normal range between ( 74 and 106 ) Blood Urea Nitrogen: 15 mg/dL -- Normal range between ( 7 and 22 ) 10/27/2020 11:21 AM Hgb A1C: 9.7 % eAVG Glucose: 232 mg/dL Diagnostic Radiology 10/29/2020 10:[address] in OR: CR CT in OR Patient Name:FRANSISCO CRAVEN I have received and understand this information and was given the opportunity to ask questions. Patient/Cooling Pipe Inspector Name: Patient/Cooling Pipe Inspector Signature: Relationship to Patient: Clinician/Hospital Cooling Pipe Inspector Signature: Date: documented in this encounter Plan of Treatment Not on file documented as of this encounter Visit Diagnoses Not on filedocumented in this encounter
--- OUTSIDE RECORDS SUMMARY | 2025-05-25 12:57 | XMS_ITS | Encounter Summary ---
Author Organization [employer] ([place], [place], [place], [place]) Address [address] [place] [address] Care Team Providers Care Retail Event And Sales Assistant Name Role Phone Unavailable Primary Care Provider Unavailbrianna e Encounter Details Date Type Department Care Team (Late st Contact Info) Description 10/31/2020 Transcribed Document [facility] [place] [address] [place] [address] ProviderFarhan MD [address] [place], [place] [id number] Social History Tobacco Use Types Packs/Day Years [...] Conversion Note - Historical ProviderMD - 10/31/2020 2:00 AM DIVERSIONAL THERAPIST Equity Manager Details Entered On: 10/31/2020 2:40 EST Performed On: 10/31/2020 2:00 EST by Rebeca Espino RN Order Details Transport Mode Order Detail : Wheelchair Isolation Precautions Order Detail : Standard Precautions Order Detail : N/A IV Order Detail : 1 Oxygen Order Detail : 0 Nurse Collect Order Detail : 0 Lift/Transfer : Minimal Central Line Order Detail : No Room Service : Appropriate Arterial Line : No Patient Needs Meds Crushed/Liquid : No Rebeca Espino RN - 10/31/2020 2:40 EST Electronically signed by Kailey [facility] Conversion Operating System Designer Cerner at 02/08/2023 12:39 PM CDT documented in this encounter Plan of Treatment Not on file documented as of this encounter Visit Diagnoses Not on filedocumented in this encounter
--- OUTSIDE RECORDS SUMMARY | 2025-05-25 12:57 | XMS_ITS | Encounter Summary ---
Author Organization [employer] ([place], [place], [place], [place]) Address [address] [place] [address] Care Team Providers Care Email Marketing Coordinator Name Role Phone Unavailable Primary Care Provider Unavailabl e Encounter Details Date Type Department Care Team (Late st Contact Info) Description 10/30/2020 Transcribed Document [facility] [place] [facility] [place] [address] ProviderFarhan MD [address] [place] [address] Social History Tobacco Use Types [...] Conversion Note - Historical ProviderMD - 10/30/2020 10:51 AM EMT I/85 UM Authorization Entered On: 10/30/2020 10:51 EST Performed On: 10/30/2020 10:51 EST by Ca Amaya Rn-Utilization Review Primary Insurance Authorization Authorization and Policy Numbers : Insurance 1 Health Plan: [employer] CHOICE PPO Policy Number: [id number] Authorization Number: Insurance Primary Name : [employer] Choice [id number] Authorization Status-Primary : Pending Auth/Referral Contact Name-Primary : Alfredo Casas Reference Number-Primary : [id number] Authorization Number-Primary : Pending Authorized Service Begin Date-Primary : 10/29/2020 EST Historical Authorization Comments-Primary : Comment 1: per availity auth pended (Ca Amaya Rn-Utilization Review 10/30/2020 10:50) Comment 2: call to gael/dr slater office to obtain preauth #. She states no auth # yet. She will call insurnace to check on it and call me back (ROLF LUDWIG, RN-Utilization Review 10/28/2020 13:52) Comment 3: Pt is david for INPT Lumbar Fusion Posterior 3 Level on Sunday10-29-20 [employer] Choice: No auth notes in STAR or availity as of yet (DERICK SHIPMAN, Schedule Checker 10/28/2020 12:39) Ca Amaya, Rn-Utilization Review - 10/30/2020 10:51 EST Electronically signed by Kailey, [facility] Conversion Backroom Associate Cerner at 02/08/2023 12:23 PM CDT documented in this encounter Plan of Treatment Not on file documented as of this encounter Visit Diagnoses Not on filedocumented in this encounter
--- OUTSIDE RECORDS SUMMARY | 2025-05-25 12:57 | XMS_ITS | Clinical Summary ---
Author Organization [facility] Address [address] [place] [address] Care Team Providers Care Remittance Clerk Name Role Phone Maycol Erickson PA-C Primary Care Provider [phone] Allergies Active Allergy Reactions Criticality Noted Date Comments Penicillins Other (See Comments) 08/15/2016 Childhood unsure of reaction Medications metFORMIN (GLUCOPHAGE) 500 MG tablet Take 500 mg by mouth 2 (Two) Times a Day With Meals. Active meloxicam (MOBIC) 15 MG tablet Take 15 mg by mouth Daily. Active lisinopril (PRINIVIL,ZESTR IL) 40 MG tablet Take 40 mg by mouth Daily. Active levothyroxine (SYNTHROID, LEVOTHROID) 200 MCG tablet Take 200 mcg by mouth Daily. Active venlafaxine (EFFEXOR) 75 MG tablet Take 200 mg by mouth 2 (Two) Times a Day. Active HYDROcodone-cachorro taminophen (LORTAB) 10-325 MG per tablet Take 1 tablet by mouth Every 6 (Six) Hours As Needed for moderate pain (4-6). Active aspirin 81 MG chewable tablet Chew 81 mg Daily. Active Social History Tobacco Use Types Packs/Day Years Used Date Smoking Tobacco: Every Day Cigarettes Tobacco Cessation:Ready to Q uit: No; Counseling Given: No Alcohol Use Standard Drinks/Week Comments No 0 (1 standard drink = 0.6 oz pur e alcohol) Abuse Screen Answer Date Recorded Unsafe at Home or Work/School Not on file Feels Threatened by Someone? Not on file 07/2023 Does Anyone Keep You from Co ntacting Others or Doint Things Outside the Home? Not on file 07/31/2023 Physical Sign of Abuse Present Not on file 1 Housing Stability Answer Date Recorded Current Living Arrangements Not on file 07/22 Potentially Unsafe Housing Conditions Not on héctor e 07/31/2023 Family and Community Support Answer Adonay e Recorded Help with Day-to-Day Activities Not on file 07/31/2023 Lonely or Isolated Not on file 07/31/2023 Employment Answer Date Recorded Do you want help finding or keeping work or a harsha b? Not on file 07/31/2023 Disabilities Answer Date Recorded Concentrating, Remembering, or Making Decisions Difficulty Not on file 07/31/2023 Doing Errands Independently Difficulty Not on fi le 07/31/2023 Education Answer Date Recorded Help with school or training? Not on file Preferred Language Not on file 07/31/2023 Sex and Gender Information Value Date Recorded Sex Assigned at Not on file Legal Sex Male 1:47 PM EDT Gender Identity Not on file Sexual Orientation Not on file Last Filed Vital Signs Vital Sign Reading Time Taken Comments Blood Pressure 121/79 08/15/2016 1:20 PM EDT Pulse 73 08/15/2016 1:20 PM EDT Temperature 36.7 C (98 F) 08/15/2016 11:56 AM EDT Respiratory Rate 16 08/15/2016 1:20 PM EDT Oxygen Saturation 97% 08/15/2016 11:56 AM EDT Inhaled Oxygen Concentration - - Weight 108 kg (237 lb 3.2 oz) 08/15/2016 11:56 A M EDT Height 175.3 cm (5' 9 ) 08/15/2016 11:56 AM EDT Body Mass Index 35.03 08/15/2016 11:56 AM EDT Plan of Treatment Health Maintenance Due Date Last Done Comments ANNUAL PHYSICAL 1960 HEPATITIS C SCREENING 1960 TDAP/TD VACCINES (1 - Tdap) 1981 COLOGUARD 2007 COLON CANCER SCREENING 5 YEAR SIGMOIDOSCOPY 2007 COLONOSCOPY [address] CANCER SCREENING 2007 CT COLONOGRAPHY 2007 FECAL OCCULT BLOOD TEST 2007 FIT Testing (1 year) 2007 Pneumococcal Vaccine 50+ (1 of 1 - PCV) 2012 ZOSTER VACCINE (1 of 2) 2012 COVID-19 Vaccine (1 - 2023- season) 2024 INFLUENZA VACCINE 07/22/2025 HEMOGLOBIN A1C Discontinued 10/12/2014 Procedures Procedure Name Priority Date/Time Associated Diagnosis Comments HEMOGLOBIN A1C Routine 10/12/2014 10:50 AM EST from Last 3 Months or Most Recently Relevant to Health Maintenance Results * Hemoglobin A1c (10/12/2014 10:50 AM EST) Hemoglobin A1C 5.1 4.00 - 6.00 % [facility] Comment: DF by IF @ 10/12/2014 11:49 The [place] [employer] recommends maintenance of Hemoglobin A1C at 7.0% or lower. Goals for Hemoglobin A1C reduction may need to be modified if hypoglycemia is a problem. Mean Bld Glu Estim. 93 mg/dL [facility] Blood specimen (specimen) 10/12/2014 10:50 AM EST Narrative [facility] - 10/12/2014 11:49 AM EST Specimen Type: Blood [facility] Santo Klein Jr., MD LAB BLOOD ORDERABLE S Final Result [facility] [address] [place] [address], from Last 3 Months or Most Recently Relevant to Health Maintenance [place] [address] [place] [address] MEDICARE ADVANTAGE Care Teams Remittance Clerk Relationship Specialty Start Date End Date Maycol Erickson PA-C [address] [place] [address] PCP - General Physician Seafood Harvester 08/15/16
--- OUTSIDE RECORDS SUMMARY | 2025-05-25 12:57 | XMS_ITS | Encounter Summary ---
Author Organization [employer] ([place], [place], [place], [place]) Address [address] [place] [address] Care Team Providers Care Accounts Adjustable Clerk Name Role Phone Unavailable Primary Care Provider Unavailbrianna e Encounter Details Date Type Department Care Team (Late st Contact Info) Description 10/31/[address] [facility] [place] [facility] [place] [address] ProviderFarhan MD [address] [place] [address] Social History Tobacco Use Types [...] - Historical ProviderMD - 10/31/2020 2:00 AM FIELD COLLECTOR Pain Assessment Entered On: 10/31/2020 6:55 EST Performed On: 10/31/2020 3:25 EST by Rebeca Espino RN Intervention Information: acetaminophen Performed by Rebeca Espino RN on 10/31/2020 02:25:00 EST acetaminophen,650mg Oral Pain Assessment Pain Assessment : Follow-up assessment Pain Scale Goal : 3 Pain Scale Used : 0-10 Scale Rebeca Espino RN - 10/31/2020 6:55 EST Pain Scale Intensity : 3 Rebeca Espino RN - 10/31/2020 6:55 EST Image 4 - Images currently included in the form version of this document have not been included in the text rendition version of the form. documented in this encounter Plan of Treatment Not on file documented as of this encounter Visit Diagnoses Not on filedocumented in this encounter
--- OUTSIDE RECORDS SUMMARY | 2025-05-25 12:57 | XMS_ITS | Encounter Summary ---
Author Organization [employer] ([place], [place], [place], [place]) Address [address] [place] [address] Care Team Providers Care Door Frame Assembler Machine Name Role Phone Unavailable Primary Care Provider Unavailabl e Encounter Details Date Type Department Care Team (Late st Contact Info) Description 10/29/2020 Transcribed Document [facility] [address] [facility] [address] [place] [address] Addie Veliz Jr., MD [address] [place] [address] Social History Tobacco Use Types [...] Note - Addie Veliz Jr., MD - 10/29/2020 11:37 AM EST Patient: FRANSISCO CRAVEN Age: 60 Years Sex: Male : 1960 *Operation removal L5-s1 hardware L3-5 plif Anesthesia Type geta *Preoperative Diagnosis stenosis *Postoperative Diagnosis PLEASE SEE MD NOTES. *Surgeon(s) Primary Surgeon ADDIE VELIZ MD-SNU (Surgeon/Proceduralist, First) *Estimated Blood Loss <300ml *Findings expected *Specimen(s) disc and old hardware Complications none Date of Service Date/Time of Service SN - Proc - Start Time: 10/29/20 08:39:00 (10/29/20 09:08:03) documented in this encounter Plan of Treatment Not on file documented as of this encounter Visit Diagnoses Not on filedocumented in this encounter
--- OUTSIDE RECORDS SUMMARY | 2025-05-25 12:57 | XMS_ITS ---
Author Organization [facility] Address [address] [place] [address] Care Team Providers Care Metal Off Bearer Name Role Phone Ministerio Rosas MD Unavailable [phone] Khadijah Dolan APRN Primary Care Provider [phone] Active Problems Problem Noted Date Diagnosed Date Urothelial carcinoma of bladder without invasion of muscle 07/25/2023 Current Treatment and Therapy Plans (Urology) Bacillus of Calmette and Rogelio (RENU BCG) Weekly x 3* Plan Start Date:05/09/2024 Plan Provider:Zulay Garcia PA Linked Problems Urothelial carcinoma of blad inna without invasion of muscle Treatment Medications No medications scheduled. Past Treatment and Therapy Plans Infusion Treatment 1 Plan Name Start Date Discontinue Date Treatment Medications Discontinue Reason Plan Provider (Urology) Bacillus of Calmette and Rogelio (RENU BCG) Weekly x 3 02/08/2024 02/08/2024 No medications scheduled. Therapy Complete Zulay Garcia PA (Urology) Bacillus of Calmette and Rogelio (RENU BCG) Weekly x 3 01/11/2024 02/05/2024 No medications scheduled. Change in Level of Care Zulay Garcia PA (UROLOGY) BACILLUS OF CALMETTE AND ROGELIO (RENU BCG) WEEKLY X 6 07/27/2023 09/21/2023 No medications scheduled. Therapy Complete Zulay Garcia PA Lifetime Dose Tracking * Chemical Lifetime Dose Automatic Entry Manual Entr y CTDIvol 432 mGy 432 mGy 0 mGy Radiation (DLP) 1,292 mGy-cm 1,292 mGy-cm 0 mGy-cm
--- OUTSIDE RECORDS SUMMARY | 2025-05-25 12:57 | XMS_ITS | Encounter Summary ---
Author Organization [employer] ([place], [place], [place], [place]) Address [address] [place] [address] Care Team Providers Care Evp Of Products & Co Founder Name Role Phone Unavailable Primary Care Provider Unavailabl e Encounter Details Date Type Department Care Team (Late st Contact Info) Description 11/02/[address] [facility] [place] [address] [place] [address] ProviderFarhan MD [address], [place] [id number] Social History Tobacco Use Types Packs/Day Years Used Date Smoking Tobacco: Never Assessed Comments Unknown Sex and Gender Information Value Date Recorded Sex Assigned at Female 04/20/2022 12:25 PM CDT Legal Sex Male 5:58 PM CDT Gender Identity Female 04/20/2022 12:25 PM CDT Sexual Orientation Not on file documented as of this encounter Miscellaneous Notes * Cerner Conversion Note - Historical ProviderMD - 11/02/2020 6:38 AM HIGH SCHOOL COMBINATION TEACHER UM Authorization Entered On: 11/02/2020 6:38 EST Performed On: 11/02/2020 6:38 EST by Diana Garcia, Door Repairer Bus Primary Insurance Authorization Authorization and Policy Numbers : Insurance 1 Health Plan: [employer] CHOICE PPO Policy Number: [id number] Authorization Number: Insurance Primary Name : [employer] Choice [id number] Authorization Status-Primary : Notification only Auth/Referral Contact Name-Primary : Alfredo Casas Reference Number-Primary : [id number] Authorization Number-Primary : [id number] Number of Days Authorized-Primary : 5 Day(s) Authorized Service Begin Date-Primary : 10/29/2020 EST Authorized Service End Date-Primary : 11/03/2020 EST Authorization Comments-Primary : Authorized per email from Alfredo Muller RN. Historical Authorization Comments-Primary : Comment 1: inpt admission approved by [employer] choice per Availity. (TAQUERIA AGRAWAL Mkt Certified Paralegal-Utilization Mgt 11/01/2020 15:33) Comment 2: per availity auth pended (Ca Amaya, Rn-Utilization Review 10/30/2020 10:50) Comment 3: call to [facility]/dr slater office to obtain preauth #. She states no auth # yet. She will call insurnace to check on it and call me back (ROLF LUDWIG, RN-Utilization Review 10/28/2020 13:52) Comment 4: Pt is david for INPT Lumbar Fusion Posterior 3 Level on Sunday10-29-20 [employer] Choice: No auth notes in STAR or availity as of yet (DERICK SHIPMAN, Survey Director 10/28/2020 12:39) Diana Garcia, Door Repairer Bus - 11/02/2020 6:38 EST documented in this encounter Plan of Treatment Not on file documented as of this encounter Visit Diagnoses Not on filedocumented in this encounter
--- OUTSIDE RECORDS SUMMARY | 2025-05-25 12:57 | XMS_ITS | Encounter Summary ---
Author Organization [employer] ([place], [place], [place], [place]) Address [address] [place] [address] Care Team Providers Care Pre Billing Clinician Name Role Phone Unavailable Primary Care Provider Unavailabl e Encounter Details Date Type Department Care Team (Late st Contact Info) Description 10/30/2020 Transcribed Document [facility] [place] [address] [place] [address] ProviderFarhan MD [address] [place] [address] Social History Tobacco Use Types [...] Cerner Conversion Note - Farhan ProviderMD - 10/30/2020 10:00 AM ASSISTANT REFINERY OPERATOR Pain Assessment Entered On: 10/30/2020 20:02 EST Performed On: 10/30/2020 12:36 EST by DARIUS VELIZ RN Intervention Information: acetaminophen Performed by Johana Castano Non Emp RN on 10/30/2020 11:36:00 EST acetaminophen,325mg Oral Pain Assessment Pain Assessment : Follow-up [...]
--- OUTSIDE RECORDS SUMMARY | 2025-05-25 12:57 | XMS_ITS | Encounter Summary ---
Author Organization [employer] ([place], [place], [place], [place]) Address [address] [place] [address] Care Team Providers Care Logistics Team Lead Name Role Phone Unavailable Primary Care Provider Unavailabl e Encounter Details Date Type Department Care Team (Late st Contact Info) Description 11/03/2020 Transcribed Document [facility] [place] [facility] [place] [address] ProviderFarhan MD [address] [place] [address] Social History Tobacco Use Types [...] Cerner Conversion Note - Historical ProviderMD - 11/03/2020 10:02 AM HELPER TEACHER Patient: FRANSISCO CRAVEN Age: 60 Years Sex: Male : 1960 Admit Date 10/29/2020 12:20 Discharge Date 10/31/2020 15:52 Primary Care Provider MANJEET HURLEY, [facility] Discharge Diagnosis Lumbar stenosis 10/31/2020 M48.061 ICD-10-CM Procedures 1. Removal of L5-S1 hardware. 2. L3-4, L4-5 posterior lumbar interbody fusion using Airo intraoperative CT scan and BrainLAB neuronavigation. Reason for Hospitalization Mr. Craven is status post L5-S1 fusion by Dr. Veliz in the past. He did well after surgery, recently return to the office with severe left radicular leg pain. Imaging showed severe stenosis at L3-4 and L4-5. Dr. Veliz discussed with him that he is a candidate for an L3-4 and L4-5 fusion. The risk and benefits were discussed and Mr. Craven wished to proceed with surgery. Hospital Course On 10/29/2020 Virgie Craven was brought to the operating room after informed consent had been obtained and Dr. Addie Veliz performed removal of his L5-S1 hardware and L3-4 and L4-5 posterior lumbar interbody fusion. He tolerated the procedure well and was transferred to the recovery room. He was followed to Hospital medicine for medical management.He was seen by physical therapy. He progressed routinely and his drain was removed on postop day 2. Plans were made for discharge home on postop day #2. Vital Signs Oxygen Settings (Last) Oxygen Therapy Mode: Nasal cannula (10/29/20 10:50:00) Oxygen Flow Rate: 3 Liter/Min (10/29/20 10:50:00) Physical Exam A 60-year-old male in no acute distress. Awake alert and oriented ??3. Skin warm and dry without rashes. Extremities movements intact. Pupils equal round reactive to light. Regular heart rate and rhythm. Respirations nonlabored. Abdomen soft and nontender. 5 out of 5 strength in bilateral lower extremities. Incision is clean dry and intact. Discharge Disposition Home Discharge Follow Up ADDIE VELIZ - 03:00 PM ADDIE VELIZ - 03:30 PM Discharge Medications (15) Active aspirin 81 mg, Oral, Daily atorvastatin 20 mg oral tablet 20 mg = 1 Tab, Oral, Daily diazepam 5 mg, PRN, Oral Inflectra 100 mg intravenous injection 1 Infusion, IntraVENous, [id number] Jardiance 25 mg oral tablet 25 mg = 1 Tab, Oral, QAM levothyroxine 200 mcg, Oral, Daily lisinopril 40 mg, Oral, Daily loratadine 10 mg oral tablet 10 mg = 1 Tab, Oral, Daily Lyrica 225 mg oral capsule 225 mg = 1 Cap, Oral, BID metFORMIN 1,000 mg, Oral, BID Luana 10 mg-325 mg oral tablet 1 Tab, PRN, Oral, Q6H predniSONE 5 mg oral tablet 5 mg = 1 Tab, Oral, Daily ranitidine 75 mg, Oral, Daily venlafaxine extended release 150 mg, Oral, Daily Vitamin D2 50,000 Int Units, Oral, Weekly Code Status No Code Status Order on Record Consulting Physicians BENITO JOLLY MD-MARY BETH MCCAULEY MD-INT Current Diet Order No qualifying data available. Patient Discharge Summary Orders Patient is to keep his incision clean and dry. He is to avoid heavy lifting over 10 pounds and avoid repetitive bending or twisting. Pending Labs No Labs on Record documented in this encounter Plan of Treatment Not on file documented as of this encounter Visit Diagnoses Not on filedocumented in this encounter
--- OUTSIDE RECORDS SUMMARY | 2025-05-25 12:57 | XMS_ITS | Encounter Summary ---
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 Details Entered On: 10/30/2020 1:24 EST Performed On: 10/30/2020 2:00 EST by Sam Anton, RN Order Details Transport Mode Order Detail : Bed (including specialty) Isolation Precautions Order Detail : Standard Precautions Order Detail : N/A Oxygen Order Detail : 1 Nurse Collect Order Detail : 0 Lift/Transfer : Moderate assist Central Line Order Detail : No Room Service : Appropriate Arterial Line : No Patient Needs Meds Crushed/Liquid : No Sam Anton, RN - 10/30/2020 1:24 EST Electronically signed by Kailey [facility] Conversion Travel Information Center Supervisor Cerner at 02/08/2023 12:39 PM CDT documented in this encounter Plan of Treatment Not on file documented as of this encounter Visit Diagnoses Not on filedocumented in this encounter
--- OUTSIDE RECORDS SUMMARY | 2025-05-25 12:57 | XMS_ITS | Encounter Summary ---
Author Organization [employer] ([place], [place], [place], [place]) Address [address] [place] [address] Care Team Providers Care Commercial Sheet Metal Foreman Name Role Phone Unavailable Primary Care Provider Unavailabl e Encounter Details Date Type Department Care Team (Late st Contact Info) Description 10/31/2020 Transcribed Document [facility] [place] [address] [place] [address] ProviderFarhan MD [address] [place] [address] Social History Tobacco Use Types [...] Conversion Note - Farhan ProviderMD - 10/31/2020 2:40 PM LARD MIXER [facility] [place] [address] FRANSISCO CRAVEN :1960 Visit Time:10/29/2020 Your [...] STOP taking the following medications: 1) tramadol (Ultram); call MD for fever greater than 101 degrees for 24 hours; increased pain,redness or swelling and/or drainage after 5 days Follow-Up Appointments Follow Up with ADDIE VELIZ When Within 2 weeks Nirali hylton Where: [address] [place] [address] [place] [id number] [employer] (1) Medications What How Much When Instructions Next Dose ergocalciferol (Vitamin D2) 50,000 International Units Oral Weekly taken on aspirin 81 Milligram(s) Oral Every Day 11/01 @ 9am atorvastatin (atorvastatin 20 mg oral tablet) 1 Tablet(s) Oral Every Day / @ 10pm diazepam 5 Milligram(s) Oral As needed for as needed for anxiety any time empagliflozin (Jardiance 25 mg oral tablet) 1 Tablet(s) Oral Every Morning 11/01 @ 9am inFLIXimab (Inflectra 100 mg intravenous injection) 1 Infusion IntraVENous Every 8 Weeks whenever due levothyroxine 200 Microgram(s) Oral Every Day 11/01 [...] 1 Capsule(s) Oral Two Times A Day 11/01 9am raNITIdine (ranitidine) 75 Milligram(s) Oral Every Day [...] these instructions at home: Medicines ??? Take vibq-xrm-ucewocs and prescription medicines only as told by [...] cannot use soap and water, use hand chief human resources officer. ? Change your bandage as told by [...] your pee (urine) pale yellow. ? Take laya-puk-hkgenje or prescription medicines. ? Eat foods that [...] 02/01/2012 Document Revised: 01/29/2020 Document Reviewed: 01/22/2018 [employer] Patient Education ?? 2020 [employer]. acetaminophen and hydrocodone (a SEET a MIN oh fen and michael droe KOE done) Hycet, Lorcet, [place], Verdrocet, Vicodin, Xodol, Zamicet What is the [...] may report side effects to FDA at 6-650-TSN-1417. What other drugs will affect acetaminophen and [...] affect acetaminophen and hydrocodone, including prescription and ooui-spm-prhjork medicines, vitamins, and herbal products. Not all [...] to ensure that the information provided by [employer]. ('[employer]') is accurate, up-to-date, and complete, but no guarantee is made to that effect. Drug information contained herein may be time sensitive. [employer] information has been compiled for use by healthcare practitioners and consumers in the [place] and therefore [employer] does not warrant that uses outside of the [place] are appropriate, unless specifically indicated otherwise. [employer] drug information does not endorse drugs, diagnose patients or recommend therapy. [employer] drug information is an informational resource designed [...] effective or appropriate for any given patient. [facility] does not assume any responsibility for any aspect of healthcare administered with the aid of information [facility] provides. The information contained herein is not intended to cover all possible uses, directions, precautions, warnings, drug interactions, allergic reactions, or adverse effects. If you have questions about the drugs you are taking, check with your doctor, nurse or pharmacist. Copyright 4361-7693 [facility] [employer] [facility]. Version: 16.01. Revision Date: 11/12/2019. Emergency Awareness [...] Assistance with quitting is available by contacting 1-472-NDIC-NOW. This is a free resource providing counseling, [...] range between ( 0.0 and 7.0 ) [place] #: 1.07 K/uL -- Normal range between ( 0.16 and 1.00 ) Eos #: 0.03 x10(3)/uL -- Normal range between ( 0.00 and 0.80 ) [place] %: 7.3 % -- Normal range between [...] ) Urine Bilirubin Dipstick: Negative Urine Specific Sears: *1.028 -- Normal range between ( 1.005 [...] was given the opportunity to ask questions. Patient/Reaming Machine Tender Name: Patient/Reaming Machine Tender Signature: Relationship to Patient: Clinician/Hospital Reaming Machine Tender Signature: Date: documented in this encounter Plan of Treatment Not on file documented as of this encounter Visit Diagnoses Not on filedocumented in this encounter
--- OUTSIDE RECORDS SUMMARY | 2025-05-25 12:57 | XMS_ITS | Encounter Summary ---
Author Organization Healthcare Address [address] [place] [address] Care Team Providers Care Franchise Manager Name Role Phone Nadja Lara MD Primary Care Provider [phone] Ministerio Rosas MD Unavailable [phone] Khadijah Dloan APRN Primary Care Provider [phone]- [phone] Encounter Details Date Type Department Care Team (Late st Contact Info) Description 05/02/2023 Lab Requisition [facility] [address] [place] [address] Right testicular pain Social History Tobacco Use Types Packs/Day Years Used Date Smoking Tobacco: Never Assessed Sex and Gender Information Value Date Recorded Sex Assigned at Not on file Legal Sex Male 8:17 PM EDT Gender Identity Not on file Sexual Orientation Not on file documented as of this encounter Plan of Treatment Upcoming Encounters Date Type Department Care Team (Late st Contact Info) Description 06/23/2025 8:00 AM EDT Office Visit [facility] [address] [place] [address] Ministerio Rosas MD [address] [place] [address] documented as of this encounter Visit Diagnoses Diagnosis Right testicular pain documented in this encounter Additional Health Concerns Infection Onset Date Last Indicated 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 documented as of this encounter Care Teams Franchise Manager Relationship Specialty Start Date End Date Nadja Lara MD [address] [place], [place] [id number] PCP - General 03/04/21 05/03/25 Khadijah Dolan APRN [address] [place], [place] [phone] PCP - General 05/04/25 Ministerio Rosas MD [address] [facility] [address] [place] [address] Surgeon Urology 09/23/24 documented as of this encounter
--- OUTSIDE RECORDS SUMMARY | 2025-05-25 12:57 | XMS_ITS | Encounter Summary ---
Author Organization [employer] ([place], [place], [place], [place]) Address [address] [place] [address] Care Team Providers Care Underground Drill Operator Name Role Phone Unavailable Primary Care Provider Unavailabl e Encounter Details Date Type Department Care Team (Late st Contact Info) Description 10/30/2020 Transcribed Document [facility] [place] Medicine [facility] [place] [address] ProviderFarhan MD [address] [place] [address] Social History Tobacco Use Types [...] - Historical ProviderMD - 10/30/2020 10:50 AM RIB CHOPPER UM Authorization Entered On: 10/30/2020 10:51 EST Performed On: 10/30/2020 10:50 EST by Ca Amaya Rn-Utilization Review Primary Insurance Authorization Authorization and Policy Numbers : Insurance 1 Health Plan: [employer] CHO[employer] PPO Policy Number: [id number] Authorization Number: Insurance Primary Name : [employer] Choice [id number] Authorization Status-Primary : Pending Auth/Referral Contact Name-Primary : Alfredo Casas Reference Number-Primary : [id number] Authorization Number-Primary : Pending Authorized Service Begin [...] or availity as of yet (DERICK SHIPMAN, Drainlayer 10/28/2020 12:39) Ca Amaya, Rn-Utilization Review - 10/30/2020 10:50 EST Electronically signed by Kailey, [facility] Conversion Cover Stitch Machine Operator Cerner at 02/08/2023 12:12 PM CDT documented in this encounter Plan of Treatment Not on file documented as of this encounter Visit Diagnoses Not on filedocumented in this encounter
--- OUTSIDE RECORDS SUMMARY | 2025-05-25 12:57 | XMS_ITS | Encounter Summary ---
Author Organization Healthcare Address [address] [place] [address] Care Team Providers Care Plow Shaker Name Role Phone Nadja Lara MD Primary Care Provider [phone]- [phone] Ministerio Rosas MD Unavailable [phone] Khadijah Dolan APRN Primary Care Provider [phone]- [phone] Encounter Details Date Type Department Care Team (Late st Contact Info) Description 05/02/2023 Lab Requisition [facility] [address] [place] [address] Zulay Garcia PA [address] [phone] Social History Tobacco Use Types Packs/Day Years [...] Description 06/23/2025 8:00 AM EDT Office Visit [facility] [address] [place] [address] Ministerio Rosas MD [address] [address] documented as of this encounter Visit Diagnoses Not on filedocumented in this encounter Additional Health Concerns Infection Onset Date Last Indicated 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 documented as of this encounter Care Teams Plow Shaker Relationship Specialty Start Date End Date Nadja Lara MD [address] [place] [phone] PCP - General 03/04/21 05/03/25 Khadijah Dolan APRN [address] [place] [address] PCP - General 05/04/25 Ministerio Rosas MD [address] [place] [address] Surgeon Urology 09/23/24 documented as of this encounter
--- OUTSIDE RECORDS SUMMARY | 2025-05-25 12:57 | XMS_ITS | Clinical Summary ---
Author Organization [employer] ([place], [place], [place], [place]) Address [address] [place] [address] Care Team Providers Care Broadcast Systems Engineer Name Role Phone Unavailable Primary Care Provider [...] Date Keyon rded Speak language other than Telugu at home Not on file 10/30/2023 Want [...] Orientation Not on file Plan of Treatment Health Maintenance Due Date Last Done Comments CT Colonography 1960 Colonoscopy 1960 Colorectal Cancer Screening 1960 FOBT/FIT 1962 Fit-DNA (Cologuard) 1960 Sigmoidoscopy 1962 Depression Screening (12+) 1974 Tobacco Cessation Counseling and Screening (12+) 1974 Pap Smear 1983 Breast Cancer Screening 2002 Pneumococcal 50+ years (1 of 1 - PCV) 2012 Shingles Vaccine (Zoster) (1 of 2) 2012 COVID-19 VACCINE (3 - season) 2024, 01/17/2021 Influenza Vaccine (#1) 2025 DTAP/TDAP/TD VACCINES (2 - Td or Tdap) 05/19/2026 Respiratory Syncytial Virus (RSV) Adult or (1 - 1-dose 75+ series) 2037
--- OUTSIDE RECORDS SUMMARY | 2025-05-25 12:57 | XMS_ITS | Encounter Summary ---
Author Organization [employer] ([place], [place], [place], [place]) Address [address] [place] [address] Care Team Providers Care Plumber Gasfitter Name Role Phone Unavailable Primary Care Provider Unavailabl e Encounter Details Date Type Department Care Team (Late st Contact Info) Description 10/30/2020 Transcribed Document [facility] [address] [place] [address] Mary Beth Orr MD [address] [address] Social History Tobacco Use Types Packs/Day Years Used Date Smoking Tobacco: Never Assessed Comments Unknown Sex and Gender Information Value Date Recorded Sex Assigned at Female 04/20/2022 12:25 PM CDT Legal Sex Male 5:58 PM CDT Gender Identity Female 04/20/2022 12:25 PM CDT Sexual Orientation Not on file documented as of this encounter Miscellaneous Notes * Cerner Conversion Note - Mary Beth Orr MD - 10/30/2020 10:30 AM EST Patient: FRANSISCO CRAVEN Age: 60 years Sex: Male : 1960 Associated Diagnoses: None Author: MARY BETH ORR MD-INT 10/30/2020 cc: medical management s/p L3-[address] Green S: doing well. no fever, chills, nightsweats. denies cough. no sob or [place]. no chest pain, pressure or palpitations. no nausea, vomiting. (+) flatus. (-) BM no issues with urination no calf tenderness. tolerable post-op soreness/pain HPI: Patient is a 60 yo male admitted to [facility] per Dr. Green for an L3-5 PLIF. [...] prostate issues. Past Med Hx: Active Problems (21) Arthritis Back pain Bite - wound Cellulitis of finger COPD (chronic obstructive pulmonary disease) Diabetes mellitus type II Emphysema of lung GERD - Gastro-esophageal reflux disease Gluteal tendinitis Greater trochanteric pain syndrome High blood pressure History of obstructive sleep apnea Hyperlipidemia Idiopathic aseptic necrosis of bone Partial [...] 100 mg intravenous injection 1 Infusion, IntraVENous, M0Nabfg Jardiance 25 mg oral tablet 25 mg [...] Vitamin D2 50,000 Int Units, Oral, Weekly Exam: Vitals Signs (last 24 hrs) Last Charted Minimum Maximum Temp 98.8 (OCT 30:30) 97.7 (OCT 29 18:14) 99 (OCT 29 10:40) Mon HR 82 (OCT 30:30) 73 (OCT 29 18:14) 88 (OCT 29 10:45) Resp Rate 16 (OCT 30:30) 16 (OCT 29 10:40) 16 (OCT 29 10:40) SBP 130 (OCT 30:30) L 82 (OCT 29:25) 134 (OCT 29 10:40) DBP 73 (OCT 30:30) L 50 (OCT 29 11:25) 86 (OCT 29 10:40) MAP 101 (OCT 30:30) 61 (OCT 29 11:25) 105 (OCT 29 10:40) SpO2 L 93 (OCT 30:30) L 92 (OCT 29 11:00) 98 (OCT 29 10:50) obese white man in no distress; pleasant, cooperative, good historian; up walking with pt nc/at, eomi, PEERL, pink conjunctiva, moist mucous membranes, non-displaced PMI, reg s1, s2 ABDis soft non-tender, non-distended, norm bowel sounds skin warm, dry without rashes ext: without edema, no calf tenderness neuro: cn 2-12 intact; no gross motor -sensory deficits psych: normal affect, good mood Data: Labs (Last four charted values) WBC [...] tobacco abuse- 2ppd post op hypotension Plan: nicotine patch 21mg daily Monitor HTN; add [...] hyperglycemia resume outpatient medication regimen for comorbidities Scribed by Deb Moscoso documented in this encounter Plan of Treatment Not on file documented as of this encounter Visit Diagnoses Not on filedocumented in this encounter
--- OUTSIDE RECORDS SUMMARY | 2025-05-25 12:57 | XMS_ITS | Encounter Summary ---
Author Organization [employer] ([place], [place], [place], [place]) Address [address] [place] [address] Care Team Providers Care Golf Club Manager Name Role Phone Unavailable Primary Care Provider Unavailabl e Encounter Details Date Type Department Care Team (Late st Contact Info) Description 11/04/2020 Transcribed Document [facility] [place] Family Medicine [facility] [place] [address] ProviderFarhan MD [address] [place], [place] [id number] Social History Tobacco Use Types Packs/Day Years Used Date Smoking Tobacco: Never Assessed Comments Unknown Sex and Gender Information Value Date Recorded Sex Assigned at Female 04/20/2022 12:25 PM CDT Legal Sex Male 5:58 PM CDT Gender Identity Female 04/20/2022 12:25 PM CDT Sexual Orientation Not on file documented as of this encounter Miscellaneous Notes * Cerner Conversion Note - Farhan ProviderMD - 11/04/2020 6:06 PM DELIVERY DRIVER Patient Resource Center Entered On: 11/04/2020 18:08 EST Performed On: 11/04/2020 18:06 EST by Armida Naidu, Pilot Boat Deckhand Patient Resource Center Provider Status : EST Other Established Provider Name : MANJEET HURLEY Patient Phone Number : [phone] Patient Insurance Type : Medicare Source of Referral : Case management Location of Patient : Case management referral Primary Care Scheduled : No Specialty Care Scheduled : Already scheduled Specialty Type Scheduled2 : Neurosurgery Neurosurgery Provider Name : ADDIE VELIZ Neurosurgery Appointment Date/Time : 11/16/2020 15:00 EST Qualify for Diabetes and/or Nutrition Referral : No Wound Care Appointment Made : No Why Patient Visited ED- Specialty spent : Other How Patient Arrived at ED : Other Primary Language : Polish Patient Resource Center Comment : Patient needs follow up appointment. Called office and patient already has two appointments scheduled with Addie Veliz (2 week staple removal and 4 week post op) Follow Up Needed : Armida Youssef, Pilot Boat Deckhand - 11/04/2020 18:06 EST documented in this encounter Plan of Treatment Not on file documented as of this encounter Visit Diagnoses Not on filedocumented in this encounter
--- OUTSIDE RECORDS SUMMARY | 2025-05-25 12:57 | XMS_ITS | Encounter Summary ---
Author Organization [employer] ([place], [place], [place], [place]) Address [address] [place] [address] Care Team Providers Care Dairy Nutrition Consultant Name Role Phone Unavailable Primary Care Provider Unavailabl e Encounter Details Date Type Department Care Team (Late st Contact Info) Description 10/29/2020 Transcribed Document [facility] [place] [facility] [place] [address] ProviderFarhan MD [address] [place] [address] Social History Tobacco Use Types [...] Conversion Note - Historical ProviderMD - 10/29/2020 10:00 PM LOCOMOTIVE REPAIRER DIESEL Pain Assessment Entered On: 10/30/2020 1:23 EST Performed On: 10/30/2020 0:15 EST by Sam Anton RN Intervention Information: acetaminophen Performed by Sam Anton RN on 10/29/2020 23:15:00 EST acetaminophen,650mg Oral Pain Assessment Pain Assessment : Follow-up assessment Pain Scale Goal : 3 Pain Scale Used : 0-10 Scale Sam Anton RN - 10/30/2020 1:23 EST Pain Scale Intensity : 2 Sam Anton RN - 10/30/2020 1:23 EST Image 4 - Images currently included in the form version of this document have not been included in the text rendition version of the form. Electronically signed by Louis Bonner Conversion Swimming Pool Installer And Servicer Mario at 02/08/2023 12:30 PM CDT documented in this encounter Plan of Treatment Not on file documented as of this encounter Visit Diagnoses Not on filedocumented in this encounter
--- OUTSIDE RECORDS SUMMARY | 2025-05-25 12:57 | XMS_ITS | Encounter Summary ---
Author Organization [employer] ([place], [place], [place], [place]) Address [address] [place] [address] Care Team Providers Care Recruitment Manager Name Role Phone Unavailable Primary Care Provider Unavailbrianna e Encounter Details Date Type Department Care Team (Late st Contact Info) Description 10/31/2020 Transcribed Document [facility] [place] [facility] [place] [address] ProviderFarhan MD [address] [place] [address] Social History Tobacco Use Types [...] Conversion Note - Historical ProviderMD - 10/31/2020 6:00 AM RECRUITMENT MANAGER Pain Assessment Entered On: 10/31/2020 6:55 EST Performed On: 10/31/2020 6:50 EST by Rebeca Espino RN Intervention Information: acetaminophen Performed by Rebeca Espino RN on 10/31/2020 05:50:00 EST acetaminophen,650mg Oral Pain Assessment Pain Assessment : Follow-up assessment Pain Scale Goal : 3 Pain Scale Used : 0-10 Scale Rebeca Espino RN - 10/31/2020 6:55 EST Pain Scale Intensity : 2 Rebeca Espino RN - 10/31/2020 6:55 EST Image 4 - Images currently included in the form version of this document have not been included in the text rendition version of the form. documented in this encounter Plan of Treatment Not on file documented as of this encounter Visit Diagnoses Not on filedocumented in this encounter
--- OUTSIDE RECORDS SUMMARY | 2025-05-25 12:57 | XMS_ITS | Encounter Summary ---
Author Organization [employer] ([place], [place], [place], [place]) Address [address] [place] [address] Care Team Providers Care Ladle Repairman Name Role Phone Unavailable Primary Care Provider Unavailabl e Encounter Details Date Type Department Care Team (Late st Contact Info) Description 10/30/2020 Transcribed Document [facility] [place] Family Medicine [address] [place] [address] ProviderFarhan MD [address] [place] [address] Social History Tobacco Use Types [...] Conversion Note - Farhan ProviderMD - 10/30/2020 6:00 AM BILLING CHECKER Pain Assessment Entered On: 10/30/2020 20:01 EST Performed On: 10/30/2020 7:45 EST by DARIUS VELIZ RN Intervention Information: acetaminophen Performed by Sam Anton RN on 10/30/2020 06:45:00 EST acetaminophen,650mg Oral Pain Assessment Pain Assessment : Follow-up assessment Pain Scale Goal : 3 Pain Scale Used : 0-10 Scale DARUIS VELIZ RN - 10/30/2020 20:01 EST Pain [...]
--- OUTSIDE RECORDS SUMMARY | 2025-05-25 12:57 | XMS_ITS | Encounter Summary ---
Author Organization [employer] ([place], [place], [place], [place]) Address [address] [place] [address] Care Team Providers Care Molder Operator Name Role Phone Unavailable Primary Care Provider Unavailabl e Encounter Details Date Type Department Care Team (Late st Contact Info) Description 10/31/2020 Transcribed Document [facility] [facility] [place] [address] ProviderFarhan MD [address] [place] [id number] Social History Tobacco Use Types Packs/Day Years [...] Conversion Note - Historical ProviderMD - 10/31/2020 3:52 PM OPTICAL BRIGHTENER MAKER HELPER Final Discharge Planning Entered On: 10/31/2020 15:53 EST Performed On: 10/31/2020 15:52 EST by SHAWNEE MAYORGA RN-Compensation Agent Final Discharge Planning Discharge Arrangements : Patient Post-Acute Information Patient Name: FRANSISCO CRAVEN Gender: Male : [birth year] Age: 60 Years No Post-Acute Placement(s) Listed No Post-Acute Service(s) Listed No Curaspan Referral(s) Listed Follow Up Appointment Scheduled : Yes Is Patient High/Moderate Readmission Risk? : No Discharge To Care Management : Home/Residential/Fci or Self Care - SHAWNEE MAYORGA RN-Compensation Agent - 10/31/2020 15:52 EST Final Narrative Note Final Narrative Note : To d/c home with . Per PLOF independent. Ordered walker and BSC from [facility] and to deliver to room prior to d/c. denies need for HH or other needs. SHAWNEE MAYORGA, RN-Compensation Agent - 10/31/2020 15:52 EST Electronically signed by Kailey [facility] Conversion Educational Consultant Cerner at 02/08/2023 12:21 PM CDT documented in this encounter Plan of Treatment Not on file documented as of this encounter Visit Diagnoses Not on filedocumented in this encounter
--- OUTSIDE RECORDS SUMMARY | 2025-05-25 12:57 | XMS_ITS | Encounter Summary ---
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 UM Authorization Entered On: 11/01/2020 15:33 EST Performed On: 11/01/2020 15:33 EST by TAQUERIA AGRAWAL Mkt Stereotype Finisher-Utilization Mgt Primary Insurance Authorization Authorization and Policy Numbers : Insurance 1 Health Plan: [employer] PPO Policy Number: [id number] Authorization Number: Insurance Primary Name : [employer] [id number] Authorization Status-Primary : Admit approved Auth/Referral Contact Name-Primary : Alfredo R Reference Number-Primary : [id number] Authorization Number-Primary : [id number] Number of Days Authorized-Primary : 5 Day(s) Authorized Service Begin Date-Primary : 10/29/2020 EST Authorized Service End Date-Primary : 11/03/2020 EST Authorization Comments-Primary : inpt admission approved by [employer] choice per Availity. Historical Authorization Comments-Primary : Comment 1: per availity auth pended (Ca Amaya, Rn-Utilization Review 10/30/2020 10:50) Comment 2: call [...] or availity as of yet (DERICK SHIPMAN, Border Measurer 10/28/2020 12:39) TAQUERIA AGRAWAL Mkt Stereotype Finisher-Utilization Mgt - 11/01/2020 15:33 EST Electronically signed by [facility] Conversion Shorts Sifter Cerner at 02/08/2023 12:13 PM CDT documented in this encounter Plan of Treatment Not on file documented as of this encounter Visit Diagnoses Not on filedocumented in this encounter
--- OUTSIDE RECORDS SUMMARY | 2025-05-25 12:57 | XMS_ITS | Encounter Summary ---
Author Organization [employer] ([place], [place], [place], [place]) Address [address] [place] [address] Care Team Providers Care Senior Mechanical Design Engineer Name Role Phone Unavailable Primary Care Provider Unavailabl e Encounter Details Date Type Department Care Team (Late st Contact Info) Description 11/04/2020 Transcribed Document [facility] [place] [facility] [place] [address] ProviderFarhan MD [address] [place] [address] Social History Tobacco Use Types [...] - Farhan ProviderMD - 11/04/2020 6:06 PM POLICE RESERVES COMMANDER Patient Education Materials Follows: Spinal Fusion, Adult, Care After This sheet gives you information about how to care for yourself after your procedure. Your doctor may also give you more specific instructions. If you have problems or questions, contact your doctor. Follow these instructions at home: Medicines ??? Take gtzn-ynp-vlpewzh and prescription medicines only as told by [...] Leave the ice on for 20 minutes, 2?3 times a day. Surgery cut care ??? Follow instructions from your doctor about how to take care of your cut from surgery (incision). Make sure you: ? Wash your hands with soap and water before you change your bandage (dressing). If you cannot use soap and water, use hand asphalt mixer. ? Change your bandage as told by [...] your pee (urine) pale yellow. ? Take mwxx-dni-hguqzpq or prescription medicines. ? Eat foods that [...] 02/01/2012 Document Revised: 01/29/2020 Document Reviewed: 01/22/2018 [employer] Patient Education ? 2019 [employer] documented in this encounter Plan of Treatment Not on file documented as of this encounter Visit Diagnoses Not on filedocumented in this encounter
--- OUTSIDE RECORDS SUMMARY | 2025-05-25 12:57 | XMS_ITS | Encounter Summary ---
Author Organization [employer] ([place], [place], [place], [place]) Address [address] [place] [address] Care Team Providers Care Special Projects Coordinator Name Role Phone Unavailable Primary Care Provider Unavailabl e Encounter Details Date Type Department Care Team (Late st Contact Info) Description 10/31/2020 Transcribed Document [facility] [place] [address] [place] [address] ProviderFarhan MD [address] [place], [place] [id number] Social History Tobacco Use Types Packs/Day Years [...] Conversion Note - Historical ProviderMD - 10/31/2020 2:36 PM PHYSICAL THERAPIST TECHNICIAN Stroke/Warfarin Instructions Entered On: 10/31/2020 14:36 EST Performed On: 10/31/2020 14:36 EST by DOMINIQUE PHILLIPS LPN Stroke/Warfarin Instructions Stroke/TIA Discharge Ins : N/A Warfarin Discharge Ins : N/A DOMINIQUE PHILLIPS LPN - 10/31/2020 14:36 EST documented in this encounter Plan of Treatment Not on file documented as of this encounter Visit Diagnoses Not on filedocumented in this encounter
--- OUTSIDE RECORDS SUMMARY | 2025-05-25 12:57 | XMS_ITS | Encounter Summary ---
Author Organization [employer] ([place], [place], [place], [place]) Address [address] [place] [address] Care Team Providers Care Clinical Material Handler Name Role Phone Unavailable Primary Care Provider Unavailabl e Encounter Details Date Type Department Care Team (Late st Contact Info) Description 10/30/2020 Transcribed Document [facility] [place] [facility] [place] [address] ProviderFarhan MD [address] [place] [address] Social History Tobacco Use Types [...] Conversion Note - Farhan ProviderMD - 10/30/2020 2:00 PM SAND PLANT ATTENDANT Pain Assessment Entered On: 10/30/2020 20:02 EST Performed On: 10/30/2020 17:46 EST by DARIUS VELIZ RN Intervention Information: acetaminophen Performed by Johana Castano Non Emp RN on 10/30/2020 16:46:00 EST acetaminophen,325mg Oral Pain Assessment Pain Assessment [...]
--- OUTSIDE RECORDS SUMMARY | 2025-05-25 12:57 | XMS_ITS | Encounter Summary ---
Author Organization [employer] ([place], [place], [place], [place]) Address [address] [place] [address] Care Team Providers Care Business Systems Lead Name Role Phone Unavailable Primary Care Provider Unavailbrianna e Encounter Details Date Type Department Care Team (Late st Contact Info) Description 10/31/2020 Transcribed Document [facility] Family Medicine [address] [place] [address] ProviderFarhan MD [address] [place] [address] Social History Tobacco Use Types [...] Conversion Note - Historical ProviderMD - 10/31/2020 5:00 AM REAL ESTATE PROFESSIONAL Chart Check - Review Order Profile Entered On: 10/31/2020 6:54 EST Performed On: 10/31/2020 5:00 EST by Rebeca Espino RN Chart Check Powerplans Initiated/Discontinued as Appropriate : Yes All Active Orders Reviewed : Yes Rebeca Espino RN - 10/31/2020 6:54 EST Electronically signed by Kailey [facility] Conversion Vp Compliance Mario at 02/08/2023 12:43 PM CDT documented in this encounter Plan of Treatment Not on file documented as of this encounter Visit Diagnoses Not on filedocumented in this encounter
--- OUTSIDE RECORDS SUMMARY | 2025-05-25 12:57 | XMS_ITS | Clinical Summary ---
Author Organization [facility] Address [address] [place] [address] Care Team Providers Care General Freight Agent Name Role Phone Ministerio Rosas MD Unavailable [phone] Khadijah Dolan APRN Primary Care Provider [phone] Allergies Active Allergy Reactions Criticality Noted Date Comments Sulfamethoxazole-Trimet hoprim Other - please document in the comment field Low 05/23/2024 Muscle pain Etanercept Other - please document in the comment field Low 06/24/2024 Penicillins Other - please document in the comment field Low 10/29/2014 Childhood unsure of reaction Medications bisoprolol (Zebeta) 5 MG tablet Take 1 tablet (5 mg) by mouth 1 (one) time each day. 3 Active albuterol 108 (90 Base) MCG/ACT inhaler INHALE 2 PUFFS FOUR TIMES DAILY NEEDED FOR SHORTNESS OF BREATH OR WHEEZING Active aspirin 81 MG chewable tablet Chew 1 tablet (81 mg) 1 (one) time each day. Active levothyroxine (Synthroid, Levoxyl) 200 MCG tablet Take 1 tablet (200 mcg) by mouth 1 (one) time each day. Active lisinopril 40 MG tablet Take 1 tablet (40 mg) by mouth 1 (one) time each day. 3 Active metFORMIN XR (Glucophage-XR) 500 MG 24 hr tablet Take 2 tablets (1,000 mg) by mouth 2 (two) times a day. 3 Active omeprazole (PriLOSEC) [address] capsule Take 1 capsule (40 mg) by mouth every night. 3 Active ergocalciferol (Vitamin D-2) 1.25 MG (09248 UT) capsule Active famotidine (Pepcid) 20 MG tablet Take 1 tablet (20 mg) by mouth 1 (one) time each day. Active atorvastatin (Lipitor) 10 MG tablet TAKE 1 TABLET BY MOUTH ONCE A DAY FOR CHOLESTEROL 3 Active fluticasone (Flonase) 50 MCG/ACT nasal spray Administer 2 sprays into each nostril 1 (one) time each day. 3 Active oxybutynin (Ditropan) 5 MG tablet Active clindamycin (Cleocin) 300 MG capsule TAKE 1 CAPSULE BY MOUTH THREE TIMES DAILY FOR 10 DAYS. 4 Active Continuous Blood Gluc Firestop/Containment Worker (FreeStyle Noemi 3 Wickliffe) device 4 Active Continuous Blood Gluc Sensor (FreeStyle Noemi 3 Sensor) misc 4 Active nitrofurantoin, macrocrystal-mo nohydrate, (Macrobid) 100 MG capsule Take 1 capsule (100 mg) by mouth 2 (two) times a day. 20 capsule 4 Active Additional Information Patient not taking.Reported on 05/05/2025 ammonium lactate (Lac-Hydrin) 12 % lotion Apply to bilateral elbows BID 4 Active tamsulosin (Flomax) 0.4 MG 24 hr capsule TAKE 1 CAPSULE BY MOUTH EVERY DAY WITH DINNER 30 capsule 11 4 08/27/20 25 Active DULoxetine (Cymbalta) [address] capsule TAKE ONE (1) CAPSULE EVERY DAY BY ORAL ROUTE. 4 Active Wixela Inhub 250-50 MCG/ACT diskus inhaler INHALE ONE (1) PUFF TWICE A DAY BY INHALATION ROUTE FOR 30 DAYS. 4 Active Lantus SoloStar 100 UNIT/ML injection pen INJECT FIVE (5) UNITS EVERY DAY BY SUBCUTANEOUS ROUTE AT BEDTIME.PEN EXPIRES IN 28 DAYS 4 Active buprenorphine-n aloxone (Suboxone) 8-[address] 1 tablet under the tongue 2 (two) times a day. Only takes it once a day Active Active Problems Problem Noted Date Diagnosed Date Urothelial carcinoma of bladder without invasion of muscle 07/25/2023 Encounters Date Type Department Care Team Description 05/19/2025 Telephone [facility] [address] [place] [address] Ministerio Rosas MD [facility] Clinical Concern/Question 05/05/2025 12:13 PM EDT - 05/05/2025 11:59 PM EDT Hospital Encounter [facility] [address] [place] [address] Urothelial carcinoma of bladder without invasion of muscle Discharge Disposition: Home or Self Care 05/05/2025 Travel 05/04/2025 Travel from Last 3 Months Family History Medical History Relation Name Comments enlarged prostate Father Arthritis Mother Saima Cancer Mother Saima Diabetes Mother Saima Diabetes Sister Glenny Anesthesia problems Neg Hx Malig Hyperthermia Neg Hx Relation Name Status Comments Father Mother Saima Sister Glenny Social History Tobacco Use Types Packs/Day Years [...] Sign Reading Time Taken Comments Blood Pressure 115/86 05/05/2025 2:55 PM EDT Pulse 75 05/05/2025 2:55 PM EDT Temperature 36.7 C (98.1 F) 05/05/2025 2:55 PM EDT Respiratory Rate 15 02/03/2025 8:04 AM EDT Oxygen Saturation 97% 05/05/2025 2:55 PM EDT Inhaled Oxygen Concentration - - Weight 91 kg (200 lb 9.9 oz) 05/05/2025 2:55 PM EDT Height 175.3 cm (5' 9 ) 05/05/2025 2:55 PM EDT Body Mass Index 29.63 05/05/2025 2:55 PM EDT Plan of Treatment Upcoming Encounters Date Type Department Care Team (Late st Contact Info) Description 06/23/2025 8:00 AM EDT [facility] [address] [place] [address] Ministerio Rosas MD [address] [place] [address] Health Maintenance Due Date Last Done Comments [facility]-HIV Screening 1962 [facility]-Hepatitis C Screening 1962 [facility]-Medicare Annual Wellness (AWV) 1962 [facility]-Infant/Child/Adol SDOH Screenings 1962 [facility]- SDOH Screenings 1980 [facility]-Adult SDOH Screenings 1980 [facility]-Pneumococcal Vaccine: 50+ Years (1 of 2 - PCV) 1981 [facility]-Zoster Vaccines (1 of 2) 1981 CT Colonography 2007 Colonoscopy 2007 FIT-DNA 2007 FIT 2007 FOBT 2007 Sigmoidoscopy 2007 [facility]-Colorectal Cancer Screening 2007 [id number] Vaccine (3 - Moderna risk series) 03/14/2021 02/14/2021, 01/17/2021 [facility]-RSV Vaccine: 60+ Years or (1 - Risk 60-74 years 1-dose series) 2022 [facility]-Lung Cancer Screening 06/01/2024 06/01/2023 [facility]-Influenza Vaccine (#1) 06/22/202507/08, 08/01/2023, 09/30/2020, Additional history exists [facility]-Depression Screening 05/05/2026 05/05/2025, 04/21 [facility]-DTaP,Tdap,and Td Vaccines (2 - Td or Tdap) 05/19/2026 05/19/2016 [facility]-Obesity Intervention Completed 025, 06/24/2024, 05/23/2024, Additional history exists HPV Vaccines Aged Out No longer eligi ble based on patient's age to complete this topic [facility]-HIB Vaccines Aged Out No longer e ligible based on patient's age to complete this topic [facility]-Hepatitis A Vaccines Aged Out No longer eligible based on patient's age to complete this topic [facility]-IPV Vaccines Aged Out No longer e ligible based on patient's age to complete this topic [facility]-Rotavirus Vaccines Aged Out No lo nger eligible based on patient's age to complete this topic Medical Devices Implanted Type Area Applied Behavior Science Specialist Device Identifier Shelf Expiration Date Model / Serial / Lot Screw Screw Right: Arm Hardware N/A: Back Procedures Procedure Name Priority Date/Time Associated Diagnosis Comments POCT URINALYSIS DIPSTICK Routine 05/05/2025 2:[address] UROGRAM Routine 05/05/2025 1:23 PM EDT Urothelial carcinoma of bladder without invasion of muscle POCT CREATININE ISTAT UNSOLICITED RESULTS Routine 05/05/2025 12:[address] CHEST W IV CONTRAST Routine 06/01/2023 11:19 AM EDT Urothelial carcinoma of bladder without invasion of muscle (CMS/HCC) from Last 3 Months or Most Recently Relevant to Health Maintenance Results * (ABNORMAL) POCT URINALYSIS DIPSTICK (05/05/2025 2:53 PM EDT) POCT Urine Color Yellow 05/05/2025 2:55 PM EDT [facility] POCT Urine Clarity Clear 05/05/2025 2:55 PM EDT [facility] POCT Urine Glucose Negative Negative mg/dL 05/05/2025 2:55 PM EDT [facility] POCT Urine Bilirubin Negative Negative mg/dL 05/05/2025 2:55 PM EDT [facility] POCT Urine Ketones Negative Negative mg/dL 05/05/2025 2:55 PM EDT [facility] POCT Urine Specific [place] 1.010 1.005 - 1.030 05/05/2025 2:55 PM EDT [facility] POCT Urine Blood Trace(A) Negative 05/05/2025 2:55 PM EDT [facility] POCT pH, Urine 5.5 5.0 - 8.0 05/05/2025 2:55 PM EDT [facility] POCT Protein, Urine Negative Negative mg/dL 05/05/2025 2:55 PM EDT [facility] POCT Urobilinogen, Urine 0.2 0.2, 1.0 EU/dL 05/05/2025 2:55 PM EDT [facility] POCT Nitrite, Urine Negative Negative 05/05/2025 2:55 PM EDT [facility] POCT Urine Leukocyte Esterase Negative Negative 05/05/2025 2:55 PM EDT [facility] Urine 05/05/2025 2:53 PM EDT 05/05/2025 2:55 PM EDT us Ministerio Rosas MD LAB POINT OF CARE TE ST DOCKED DEVICE UNSOLICITED RESULTS Final Result Performing Organization Address City/State/[facility] de Phone Number [facility] [address] [place], [place] * CT Urogram (05/05/2025 1:23 PM EDT) [...] following split bolus administration of IV contrast, [id number], 150 mL. Reformatted images in the coronal [...] and Body Wall: Surgical changes compatible with [id number] fusion, with severe degenerative changes at the [...] signing this report, I, the attending physician, attestthat I have personally reviewed the images/data for the aboveexamination(s) and agree with the final edited report. Drafted by Efren Leblanc MD on 05/05/2025 2:45 PM Final report signed by Cory Green MD on 05/05/2025 4:59 PM Ministerio Rosas MD IMG CT PROCEDURES Final Resul t * POCT creatinine (05/05/2025 12:29 PM EDT) Creatinine, Point of Care 1.0 0.7 - 1.2 mg/dL 05/05/2025 12:31 PM EDT [facility] POCT eGFR 85 mL/min/1. 73m*2 05/05/2025 12:31 PM EDT [facility] Plant Attendant ID Aundrea Chung 05/05/2025 12:31 PM EDT [facility] Device ID [id number] 05/05/2025 12:31 PM EDT [facility] Comment 05/05/2025 12:31 PM EDT [facility] Comment:Testing performed on i-STAT at the point of care. Reported eGFRcr in mL/min/1.73m2 is based the CKD-EPI 2020 equation that does not use a race coefficient. Blood Venous blood specimen / Unknown 05/05/2025 12:29 PM EDT 05/05/2025 12:31 PM EDT us Generic Provider Poct LAB POINT OF CARE TEST DOCKED DEVICE UNSOLICITED RESULTS Final Result [facility] [address] [place], [place] [id number] [place] [address] LAB [address] [place] [address] * CT Chest w IV Contrast (06/01/2023 11:19 AM EDT) Anatomical Region Laterality Modality Chest Computed Tomogra phy Impressions 06/01/2023 11:33 AM EDT No definite evidence of thoracic metastasis. A mildly enlarged right paratracheal lymph node is noted to which attention can be directed on follow-up. Likely smoking-related emphysema and respiratory bronchiolitis. CRITICAL RESULT: No. COMMUNICATION: Per this written report. Drafted by Ministerio Gutierrez MD on 06/01/2023 11:31 AM Final report signed by Ministerio Gutierrez MD on 06/01/2023 11:33 AM Narrative 06/01/2023 11:33 AM EDT CLINICAL INDICATION: staging, UCC TECHNIQUE: Multiple CT helical images were obtained from thoracic inlet through upper abdomen with administration of IV contrast. 90 mL of Omnipaque-300 were administered intravenously. Total DLP (Dose-Length Product): 227.21 mGy.cm. Please note: The reported value represents the total of one or more individual components during the CT acquisition on this date and at this time, and as such, the same value may appear in more than one CT report depending on the interpreting/reporting physicians. COMPARISON: None. FINDINGS: Mediastinum and Pleura: There is a mildly enlarged 13 mm right paratracheal lymph node (series 2 image 43). Calcified right hilar lymph nodes consistent with prior granulomatous disease. No pleural effusion. Severe coronary artery calcification. Lungs: Several tiny nodules consistent with an and pulmonary lymph nodes. Mild centrilobular groundglass micronodules. Mild centrilobular emphysema. No dominant suspicious nodules. Upper Abdomen: No suspicious lesions in the partially visualized upper abdomen. Musculoskeletal: No suspicious lytic or sclerotic lesion. Procedure Note Ministerio Gutierrez MD - 06/01/2023 CLINICAL INDICATION: staging, UCC TECHNIQUE: Multiple CT helical images were obtained from thoracic inlet through upperabdomen with administration of IV contrast. 90 mL of Omnipaque-300 wereadministered intravenously. Total DLP (Dose-Length Product): 227.21 mGy.cm. Please note: The reportedvalue represents the total of one or more individual components during theCT acquisition on this date and at this time, and as such, the same valuemay appear in more than one CT report depending on theinterpreting/reporting physicians. COMPARISON: None. FINDINGS: Mediastinum and Pleura: There is a mildly enlarged 13 mm rightparatracheal lymph node (series 2 image 43). Calcified right hilar lymphnodes consistent with prior granulomatous disease. No pleural effusion.Severe coronary artery calcification. Lungs: Several tiny nodules consistent with an and pulmonary lymph nodes.Mild centrilobular groundglass micronodules. Mild centrilobular emphysema.No dominant suspicious nodules. Upper Abdomen: No suspicious lesions in the partially visualized upperabdomen. Musculoskeletal: No suspicious lytic or sclerotic lesion. IMPRESSION: No definite evidence of thoracic metastasis. A mildly enlarged rightparatracheal lymph node is noted to which attention can be directed onfollow-up. Likely smoking-related emphysema and respiratory bronchiolitis. CRITICAL RESULT: No. COMMUNICATION: Per this written report. 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 Yes Care Teams General Freight Agent Relationship Specialty Start Date End Date Khadijah Dolan APRN [address] [place] [id number] PCP - General 05/04/25 Ministerio Rosas MD [address] [place] [address] Surgeon Urology 09/23/24
--- OUTSIDE RECORDS SUMMARY | 2025-05-25 12:57 | XMS_ITS | Encounter Summary ---
Author Organization [employer] ([place], [place], [place], [place]) Address [address] [place] [address] Care Team Providers Care Hot Saw Helper Name Role Phone Unavailable Primary Care Provider Unavailabl e Encounter Details Date Type Department Care Team (Late st Contact Info) Description 10/31/2020 Transcribed Document [facility] [place] [facility] [place] [address] ProviderFarhan MD [address] [place] [address] Social History Tobacco Use Types [...] - Historical ProviderMD - 10/31/2020 2:36 PM SOCIAL WORKER PSYCHIATRIC Nursing Discharge Summary Entered On: 10/31/2020 14:37 EST Performed On: 10/31/2020 14:36 EST by DOMINIQUE PHILLIPS LPN Discharge Documentation Discharge Date/Time : 10/31/2020 15:00 EST Patient Disposition, General : Discharge Discharge To : Home with ambulatory/outpatient follow-up Mode Of Departure, General Discharge : Private vehicle Accompanied By, Discharge : Spouse IV Discontinued : Yes Personal Belongings With Patient : Yes Pt's Own Supply of Medications Returned : No patient supply of medications to return Prescriptions Given to Patient : Yes Medications Given to Patient : No Discharge Instructions Reviewed With, Opportunity For Questions Given : Patient, Spouse Patient Education Completed : Yes Number of Prescriptions Given : 1 Teaching Method : Explanation, Printed materials Teaching Evaluation : Verbalizes understanding Education Comment : POC, meds, safety, pain mgmt Worker's Compensation Paperwork Completed : DOMINIQUE Carter, SYLVAIN - 10/31/2020 14:36 EST Electronically signed by [facility] Conversion Ux Visual Designer Cerner at 02/08/2023 12:18 PM CDT documented in this encounter Plan of Treatment Not on file documented as of this encounter Visit Diagnoses Not on filedocumented in this encounter
--- OUTSIDE RECORDS SUMMARY | 2025-05-25 12:57 | XMS_ITS | Encounter Summary ---
Author Organization [employer] ([place], [place], [place], [place]) Address [address] [place] [address] Care Team Providers Care Lion Trainer Name Role Phone Unavailable Primary Care Provider Unavailabl e Encounter Details Date Type Department Care Team (Late st Contact Info) Description 10/31/2020 Transcribed Document [facility] Radiology [address] [place] [address] Mary Beth Orr MD [address] [address] Social History Tobacco Use Types [...] Note - Mary Beth Orr MD - 10/31/2020 9:48 AM EST Patient: FRANSISCO CRAVEN Age: 60 years Sex: Male : 1960 Associated Diagnoses: None Author: MARY BETH ORR MD-INT 10/31/2020 cc: medical management s/p L3-[address] Green S: doing well. no fever, chills, nightsweats. denies cough. no sob or [place]. no chest pain, pressure or palpitations. no nausea, vomiting. (+) flatus. (-) BM no issues with urination no calf tenderness. tolerable post-op soreness/pain HPI: Patient is a 60 yo male admitted to [facility] per Dr. Green for an L3-5 PLIF. [...] 100 mg intravenous injection 1 Infusion, IntraVENous, Q8Bohqh Jardiance 25 mg oral tablet 25 mg [...] 24 hrs) Last Charted Minimum Maximum Temp 97.5 (OCT 31:00) 97.5 (OCT 31:00) 98.5 (OCT 30:) Mon HR 85 (OCT 31:) 84 (OCT 30 21:20) 93 (OCT 30 18:10) Resp Rate 16 (OCT 31:00) 16 (OCT 30 14:53) 17 (OCT 30:00) SBP 100 (OCT 31:00) 100 (OCT 31:00) 137 (OCT 30:) DBP L 53 (OCT 31:00) L 53 (OCT 31:00) 86 (OCT 30 11:00) MAP 70 (OCT 31:00) 66 (OCT 30 18:10) 107 (OCT 30 11:00) SpO2 95 (OCT 31:00) L 93 (OCT 30 11:00) 96 (OCT 30 14:53) obese white man in no distress; pleasant, [...] Labs (Last four charted values) WBC H 14.7 (OCT 30) H 10.3 (OCT 27) HB 13.7 (OCT 30) 16.2 (OCT 27) HCT 41.4 (OCT 30) 47.4 (OCT 27) Plt 185 (OCT 30) 192 (OCT 27) Na L 133 (OCT 30) 136 (OCT 27) K 4.1 (OCT 30) 4.2 (OCT 27) Cl L 98 (OCT 30) 104 (OCT 27) CO2 24 (OCT 30) 25 (OCT 27) BUN 15 (OCT 30) 16 (OCT 27) Cr 1.20 (OCT 30) 1.20 (OCT 27) Glu R H 265 (OCT 30) H 229 (OCT 27) Ca 9.0 (OCT 30) 9.5 (OCT 27) Impression: advanced spondylolisthesis Lspine -s/p L3-[address] Green Hx sleep apnea Hx HTN Hx DMII Hx hypothyroid Hx COPD Hx RLS Hx anxiety/depression tobacco abuse- 2ppd post op hypotension Plan: Anticipate DC home later today per Dr. Green nicotine patch 21mg daily Monitor HTN; add [...]
--- OUTSIDE RECORDS SUMMARY | 2025-05-25 12:57 | XMS_ITS | Encounter Summary ---
Author Organization Healthcare Address [address] [place] [address] Care Team Providers Care Manager Protein Name Role Phone Nadja Lara MD Primary Care Provider [phone] Ministerio Rosas MD Unavailable [phone] Khadijah Dolan APRN Primary Care Provider [phone]- [phone] Encounter Details Date Type Department Care Team (Late st Contact Info) Description 05/02/2023 Lab Requisition [facility] [address] [place] [address] Zulay Garcia PA [address] [id number] Right testicular pain Social History Tobacco Use [...] Description 06/23/2025 8:00 AM EDT [facility] [address], [address] [place] [address] Ministerio Rosas MD [address] [address] documented as of this encounter Procedures Procedure Name Priority Date/Time Associated Diagnosis Comments SURGICAL PATHOLOGY CONSULT Routine 05/02/2023 2:18 PM EDT Right testicular pain documented in this encounter Results * Surgical Pathology Consult (05/02/2023 2:18 PM EDT) Case Report Sugical Pathology Consult Case: [id number] Authorizing Provider: Zulay Garcia PA Collected: 05/02/2023 1418 Ordering Location: [facility] Lab Received: 05/02/2023 1418 Pathologist: Connor Suarez MD Specimen: Testicle, 05/03/2023 5:33 PM EDT [facility] Final Diagnosis OUTSIDE CASE: COLLECTED ON 03/13/2023. A. TESTICLE AND EPIDIDYMIS, RIGHT, EXCISION: - HYDROCELE B. 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 Received along with a corresponding pathology report from [facility] are 6 slide(s) labeled outside case: collected on 03/13/2023. 05/03/2023 5:33 PM EDT [facility] Note: A resident was involved in the service. I attest I examined the relevant preparations for the specimens and confirmed the diagnosis or interpretation. 05/03/2023 5:33 PM EDT [facility] Tissue Testis structure / Unknown 05/02/2023 2:18 PM EDT 05/02/2023 2:18 PM EDT [facility] PATHOLOGY ORDERABLES Fi nal Result [facility] [address] [place] [address] documented in this encounter Visit Diagnoses Diagnosis Right testicular pain documented in this encounter Additional Health Concerns Infection Onset Date Last Indicated 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 documented as of this encounter Care Teams Manager Protein Relationship Specialty Start Date End Date Nadja Lara MD [address] [place] [address] PCP - General 03/04/21 05/03/25 Khadijah Dolan APRN [address] [place] [address] PCP - General 05/04/25 Ministerio Rosas MD [address] [place] [address] Surgeon Urology 09/23/24 documented as of this encounter
--- OUTSIDE RECORDS SUMMARY | 2025-05-25 12:57 | XMS_ITS | Encounter Summary ---
Author Organization Healthcare Address [address] [place] [address] Care Team Providers Care Clay House Worker Name Role Phone Nadja Lara MD Primary Care Provider [phone]- [phone] Ministerio Rosas MD Unavailable [phone] Khadijah Dolan APRN Primary Care Provider [phone]- [phone] Encounter Details Date Type Department Care Team (Late st Contact Info) Description 03/05/2023 Orders Only External Location [address] [place] [address] Yared Salgado MD [address] [place] [address] Social History Tobacco Use Types Packs/Day Years [...] Description 06/23/2025 8:00 AM EDT Office Visit [facility] [address], [address] [place] [address] Ministerio Rosas MD [address] [place] [address] documented as of this encounter Procedures Procedure Name Priority Date/Time Associated Diagnosis Comments CT MSK OUTSIDE IMAGES 03/05/2023 10:31 AM EDT documented in this encounter Results * CT MSK OUTSIDE IMAGES (03/05/2023 10:31 AM EDT) Anatomical Region Laterality Modality Computed Tomogra phy 03/05/2023 10:3 1 AM EDT Yared Salgado MD IMG CT PROCEDURES Final Result documented in this encounter Visit Diagnoses Not on filedocumented in this encounter Additional Health Concerns Infection Onset Date Last Indicated 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 documented as of this encounter Care Teams Clay House Worker Relationship Specialty Start Date End Date Nadja Lara MD [address] [place] [address] PCP - General 03/04/21 05/03/25 Khadijah Dolan APRN [address] [place] [address] PCP - General 05/04/25 Ministerio Rosas MD [address] [place] [address] Surgeon Urology 09/23/24 documented as of this encounter
--- OUTSIDE RECORDS SUMMARY | 2025-05-25 12:57 | XMS_ITS | Encounter Summary ---
Author Organization [employer] ([place], [place], [place], [place]) Address [address] [place] [address] Care Team Providers Care Assistant Baseball Coach Name Role Phone Unavailable Primary Care Provider Unavailabl e Encounter Details Date Type Department Care Team (Late st Contact Info) Description 10/31/2020 Transcribed Document [facility] [place] [facility] [address] ProviderFarhan MD [address] [place] [phone] Social History Tobacco Use Types Packs/Day Years [...] Conversion Note - Historical ProviderMD - 10/31/2020 3:22 PM PHYSICAL THERAPY INSTRUCTOR Discharge Summary, PT Entered On: 10/31/2020 15:23 EST Performed On: 10/31/2020 15:22 EST by Ronan Chase PHYSICAL THERAPIST Discharge Summary Discharge Summary Provider Notified : Nursing, Physical Therapy Reason for Discharge : Discharged from hospital, All goals met Discharged to, Therapy : Home, with family care Discharge Summary Comment, PT : Today partient displayed Gait Assistance Level : Independent, modified Walking Distance : 175 feet with up/down 8 tall platform in gym simulate home step then sit rest 2 min, next walked 300 feet including up/down ramp end of 6th floor hallway Ambulatory Devices : Gait belt, Walker, front wheel, Other: LSO on In/out bed and chairs with Modified Asistance level. Ronan Chase PHYSICAL THERAPIST - 10/31/2020 15:22 EST Tire Servicer Goals Mobility/Bed Mobility LTG PT Grid Goal #1 Goal #2 Activity : Supine to sit Sit to stand Assist : Independent, complete Independent, modified Equipment : Walker, front wheel Date to Meet : 11/05/2020 EST 11/05/2020 EST Goal Status : Goal met Goal met Date Met : 10/31/2020 EST 10/31/2020 EST Ronan Chase, PHYSICAL THERAPIST - 10/31/2020 15:22 EST Ronan Chase PHYSICAL THERAPIST - 10/31/2020 15:22 EST Ambulation LTG Grid Goal #1 Device : Walker, front wheel Distance : 300' Assist : Independent, modified Date to Meet : 11/05/2020 EST Goal Status : Goal met Date Met : 10/31/2020 EST Ronan Chase PHYSICAL THERAPIST - 10/31/2020 15:22 EST Stairs LTG Grid Goal #1 Device : None Number of Steps : 2 Handrail(s) : One handrail Assist : Independent, modified Date to Meet : 11/05/2020 EST Goal Status : Goal met Ronan Chase PHYSICAL THERAPIST - 10/31/2020 15:22 EST documented in this encounter Plan of Treatment Not on file documented as of this encounter Visit Diagnoses Not on filedocumented in this encounter
--- OUTSIDE RECORDS SUMMARY | 2025-05-25 12:57 | XMS_ITS | Encounter Summary ---
Author Organization [employer] ([place], [place], [place], [place]) Address [address] [place] [address] Care Team Providers Care Development Technical Lead Name Role Phone Unavailable Primary Care Provider Unavailabl e Encounter Details Date Type Department Care Team (Late st Contact Info) Description 10/29/2020 Transcribed Document [facility] [place] Family Medicine [address] [place] [address] ProviderFarhan MD [address] [place], [place] [id number] Social History Tobacco Use Types Packs/Day Years [...] Conversion Note - Historical ProviderMD - 10/29/2020 12:20 PM THERAPY DIRECTOR Meds to Bed Enrollment Entered On: 10/29/2020 12:21 EST Performed On: 10/29/2020 12:20 EST by Matty Hoover, JOINER APPRENTICE LEAD Meds to Bed Enrollment Patient Enrollment Decision: : Yes/enroll in meds to bed program Matty Hoover JOINER APPRENTICE LEAD - 10/29/2020 12:21 EST Electronically signed by Louis Bonner Conversion Fire Apparatus Sprinkler Inspector Mario at 02/08/2023 12:46 PM CDT documented in this encounter Plan of Treatment Not on file documented as of this encounter Visit Diagnoses Not on filedocumented in this encounter
== END 2025-05-25 23:59 | disposition home or self-care (01) ==
LOC: RT 12:54
PROVIDERS: PCP Nurse Practitioner Family; Visit Provider Physician Assistant
DX: I49.1 Atrial premature depolarization (principal); I49.3 Ventricular premature depolarization; I47.10 Supraventricular tachycardia, unspecified; R00.1 Bradycardia, unspecified
CPT/HCPCS: 93225; 93227

== ENCOUNTER 2025-05-27 16:52 | Outpatient (CLI) | payer MEDICARE, SELFPAY ==
--- OUTSIDE RECORDS SUMMARY | 2024-08-14 04:30 | XMS_ITS ---
Author Organization [facility] Address [address] [place] [address] Care Team Providers Care Time Motion Analyst Name Role Phone Khadijah Hanna APRN, Mem Primary Care Provider Unavailable Roger Keen II Unavailable Edelstein -Reproducer David DUKE Unavailable Unavailable Allergies Allergen (clinical [...] Diagnosis [facility] [address] [place] [address] 08/14/2024 Roger Keen Other senior living (current) drug therapy Z79.899 ; Unspecified osteoarthritis, unspecified site M19.90 ; Rheumatoid arthritis, unspecified M06.9 ; Spondylosis without myelopathy or radiculopathy, lumbar region M47.816 ; Radiculopathy, lumbar region M54.16 ; Sacroiliitis, not elsewhere classified M46.1 and Trochanteric bursitis, unspecified hip M70.60 Assessments Encounter Date Diagnosis (ICD Code) Assessment Notes Treatment Notes Treatment Clinical Notes Section Notes 08/14/2024 Other senior living (current) drug therapy (ICD-10 - Z79.899) 06/19/24 1. Refill [facility] 7.5/325mg TID-QID 2. Continue Lyrica 225mg BID [...] he had major back surgeries at the [facility] with Dr. Waylon Green, performed in 2020 which was a lumbar fusion (L3-S1). He is going to try and pursue further surgery once his cancer stabilizes. Patient reports no changes in the character or intensity of his pain. He reports that he has not had a treatment for his bladder cancer approximately 4 weeks ago. Taking [facility] 7.5/325 mg 3-4 times per day with [...] he had major back surgeries at the [facility] with Dr. Waylon Green, performed in 2020 which was a lumbar fusion (L3-S1). He is going to try and pursue further surgery once his cancer stabilizes. Patient reports no changes in the character or intensity of his pain. He reports that he has not had a treatment for his bladder cancer approximately 4 weeks ago. Taking [facility] 7.5/325 mg 3-4 times per day with [...] he had major back surgeries at the [facility] with Dr. Waylon Green, performed in 2020 which was a lumbar fusion (L3-S1). He is going to try and pursue further surgery once his cancer stabilizes. Patient reports no changes in the character or intensity of his pain. He reports that he has not had a treatment for his bladder cancer approximately 4 weeks ago. Taking [facility] 7.5/325 mg 3-4 times per day with [...] he had major back surgeries at the [facility] with Dr. Waylon Green, performed in 2020 which was a lumbar fusion (L3-S1). He is going to try and pursue further surgery once his cancer stabilizes. Patient reports no changes in the character or intensity of his pain. He reports that he has not had a treatment for his bladder cancer approximately 4 weeks ago. Taking [facility] 7.5/325 mg 3-4 times per day with [...] he had major back surgeries at the [facility] with Dr. Waylon Green, performed in 2020 which was a lumbar fusion (L3-S1). He is going to try and pursue further surgery once his cancer stabilizes. Patient reports no changes in the character or intensity of his pain. He reports that he has not had a treatment for his bladder cancer approximately 4 weeks ago. Taking [facility] 7.5/325 mg 3-4 times per day with [...] he had major back surgeries at the [facility] with Dr. Waylon Green, performed in 2020 which was a lumbar fusion (L3-S1). He is going to try and pursue further surgery once his cancer stabilizes. Patient reports no changes in the character or intensity of his pain. He reports that he has not had a treatment for his bladder cancer approximately 4 weeks ago. Taking [facility] 7.5/325 mg 3-4 times per day with [...] he had major back surgeries at the [facility] with Dr. Waylon Green, performed in 2020 which was a lumbar fusion (L3-S1). He is going to try and pursue further surgery once his cancer stabilizes. Patient reports no changes in the character or intensity of his pain. He reports that he has not had a treatment for his bladder cancer approximately 4 weeks ago. Taking [facility] 7.5/325 mg 3-4 times per day with [...] IF CLOSED) Treatment Notes Assessment Notes Other senior living (current) drug therapy 06/19/24 1. Refill [facility] 7.5/325mg TID-QID 2. Continue Lyrica 225mg BID [...] * Noe SILVESTREDOB:1960 ( 65 yo M)Acc No.[id number]:08/14/2024 FollowUP Patient: Noe DIAZ Provider: Amrik Keen II, M.D. :1960 A ge:64 Y S ex:Male Date:08/14/2024 Address:[address] [place], [place] [id number] Pcp:Eugzoie dixon [facility] Subjective: * Chief Complaints: * 1 . Low back pain. 2. Leg pain. * HPI: T ODAYS PAIN EVALUATION: 64 year old male presents with c/o MEDICATION FOLLOW UP: T he patient is currently prescribed [facility] 7.5/325 mg TID and Lyrica 225 mg [...] peripelvic cysts of both the partially visualized [id number]/22/2020 XR LUMBAR:Grade 1 anterior listhesis L3-4 , [...] Physical Therapy program completed- Helpful, completed at [facility] . P ERTINENT [...] has had major back surgeries at the [facility] with Dr. Waylon Green the last one [...] are going to request all images from [facility] to review. I am going to schedule him for a #1 bilateral SI joint injection. If he gets any significant relief even short duration, we may consider lateral branch blocks of the SI joint at S1-3 and RFA to minimize steroid requirements for long-term relief. I will start him on [facility] 7.5 mg 3-4 times per day as [...] by Oncology. * Surgical History: a ppendectomy/ [facility] 09/1997, carpal tunnel release [facility] , right index finger/ [facility] unknown, right elbow/ [facility] /unknown unknown, kidney/ [facility] ([facility] 2016, lumbar spine fusion/ [facility]/ Dr. Green 3 day stay 03/2014,, shoulder/ Bicep/ Dr. Wu/ [facility] 01/2016, Hydroseal/ [facility] 10/2022, Lumbar spine [place] 3 days stay 2020. * Hospitalization/Major Diagno [...] * Vitals: * Examination: G eneral Examination: Nurse/Strawhat Sizer: Rosalinda waterman(Nahomi Wheeler 06/19/2024 8:14:10 AM > [...] . Assessment: * Assessment: 1. O ther salvage determiner (current) drug therapy - Z79.899 (Primary) 2 [...] he had major back surgeries at the [facility] with Dr. Waylon Green, performed in 2020 which was a lumbar fusion (L3-S1). He is going to try and pursue further surgery once his cancer stabilizes. Patient reports no changes in the character or intensity of his pain. He reports that he has not had a treatment for his bladder cancer approximately 4 weeks ago. Taking [facility] 7.5/325 mg 3-4 times per day with relief. Denies side effects. Continues Lyrica with PCP. Declines injection therapy. Vero and UDS reviewed in room. Follow up in 2 months. Plan: * Treatment: * Procedures: [facility] FRY ENCOUNTER AND OVERSIGHT: Consult Performed By: Augusto raphael(SHOE REPAIR COBBLER-PANKAJ),Lauren 06/19/2024 8:50:10 AM > . c ollaborated treatment plan with Amrik Keen M.D., supervising physician who was present in office during consultation. * Follow Up: 2 Months * * Electronic signature of Solomon Keen II, M.D. on 05/27/2025 at 03:55 PM CDT Sign off status: Pending * Provider: Amrik Keen II, M.D. Date: Generated for Al santos/Yimi/Phoenixitting on: 0 05/27/2025 03:55 PM CDT History and Physical Notes * [...] has had major back surgeries at the [facility] with Dr. Waylon Green the last one [...] are going to request all images from [facility] to review. I am going to schedule him for a #1 bilateral SI joint injection. If he gets any significant relief even short duration, we may consider lateral branch blocks of the SI joint at S1-3 and RFA to minimize steroid requirements for long-term relief. I will start him on [facility] 7.5 mg 3-4 times per day as [...] Physical Therapy program completed- Helpful, completed at [facility] PERTINENT SURGICAL EVALUATIONS/SPECIALIST [...] FOLLOW UP: The patient is currently prescribed [facility] 7.5/325 mg TID and Lyrica 225 mg [...] pain., +COMPRESSION TEST FILEMON, +DISTRACTION TEST FILEMON Nurse/Strawhat Sizer: Dakota(CECY-Omero Pichardo 06/19/2024 8:14:10 AM > Lumbar [...]
--- OUTSIDE RECORDS SUMMARY | 2025-05-05 12:13 | XMS_ITS | Encounter Summary ---
Author Organization [facility] Address [address] [place] [address] Care Team Providers Care Motel Manager Name Role Phone Ministerio Rosas MD Unavailable [phone] Khadijah Dolan APRN Primary Care Provider [phone] Reason for Referral * Imaging (Routine) - Closed Specialty Diagnoses / Procedures Referred By Loki tyler Referred To Contact Radiology Diagnoses Urothelial carcinoma of bladder without invasion of muscle Procedures CT Urogram Ministerio Rosas MD [address] [address] Phone: tel: fax: Referral ID Status Reason Start Date Expiration Date Visits Re quested Visits Authorized [id number] Closed 02/03/2025 08/05/2026 1 1 Reason for Visit * Imaging (Routine) - Closed Specialty Diagnoses / Procedures Referred By Loki tyler Referred To Contact Radiology Diagnoses Urothelial carcinoma of bladder without invasion of muscle Procedures CT Urogram Ministerio Rosas MD [address] [address] Phone: tel: fax: Referral ID Status Reason Start Date Expiration Date Visits Re quested Visits Authorized [id number] Closed 02/03/2025 08/05/2026 1 1 Encounter Details Date Type Department Care Team (Latest Contact Info) Description 05/05/2025 12:13 PM EDT - 05/05/2025 11:59 PM EDT Hospital Encounter [facility] Radiology [address] [place] [address] Urothelial carcinoma of bladder without invasion of [...] FOR 10 DAYS. 01/02/2024 Continuous Blood Gluc Band Top Maker (FreeStyle Noemi 3 [place]) device 02/01/2024 Continuous Blood Gluc Sensor (FreeStyle Noemi 3 Sensor) misc 02/01/2024 DULoxetine (Cymbalta) [address] capsule TAKE ONE (1) CAPSULE EVERY DAY BY ORAL ROUTE. 08/26/2024 ergocalciferol (Vitamin D-2) 1.25 MG (29981 UT) capsule famotidine (Pepcid) 20 MG tablet [...] Description 06/23/2025 8:00 AM EDT Office Visit [facility] Urology [address] [place] [address] Ministerio Rosas MD [address] [place] [address] Scheduled Orders Name Type Priority [...] following split bolus administration of IV contrast, [id number], 150 mL. Reformatted images in the coronal [...] and Body Wall: Surgical changes compatible with L3-[id number] fusion, with severe degenerative changes at the [...] 73m*2 05/05/2025 12:31 PM EDT [facility] Marine Steward ID Aundrea Chung 05/05/2025 12:31 PM EDT [facility] Device ID [id number] 05/05/2025 12:31 PM EDT [facility] Comment 05/05/2025 12:31 PM EDT [facility] Comment:Testing performed on i-STAT at the point of care. Reported eGFRcr in mL/min/1.73m2 is based the CKD-EPI 2020 equation that does not use a race coefficient. Blood Venous blood specimen / Unknown 05/05/2025 12:29 PM EDT 05/05/2025 12:31 PM EDT Generic Provider Poct LAB POINT OF CARE TEST DOCKED DEVICE UNSOLICITED RESULTS Final Result [facility] [address] [place] [address] [facility] [address] [place] [address] documented in this encounter Visit Diagnoses Diagnosis [...] documented as of this encounter Care Teams Motel Manager Relationship Specialty Start Date End Date Khadijah Dolan APRN [address] [place] [address] PCP - General 05/04/25 Ministerio Rosas MD [address] [facility] [address] [place] [address] Surgeon Urology 09/23/24 documented as of this encounter
--- OUTSIDE RECORDS SUMMARY | 2025-05-27 16:54 | XMS_ITS | Encounter Summary ---
Author Organization [facility] Address [address] [place] [address] Care Team Providers Care Day Care Worker Name Role Phone Ministerio Rosas MD Unavailable [phone] Khadijah Dolan APRN Primary Care Provider [phone] Reason for Visit * Reason Onset Date Comments HCN Clinical Concern/Question 05/19/2025 HCN Status Update Call #2 05/19/2025 Encounter Details Date Type Department Care Team (Late st Contact Info) Description 05/19/2025 Telephone [facility] [address] [place] [address] Ministerio Rosas MD [address] [place] [address] HCN Clinical Concern/Question; HCN Status Update Call #2 Social History Tobacco Use Types Packs/Day Years [...] encounter Miscellaneous Notes * Telephone Encounter - Wild Rivera - 05/26/2025 3:42 PM EDT Status Update Call #2 2nd call regarding the status of the initial request. Best contact number: [phone] Optimal time of day to reach caller: ANYTIME Additional comments/information from caller: Note: Please do not reply to this message. Follow-up communication and further actions as a result of this message need to be communicated with the patient directly, if the patient is not active onMyChart. If the patient is active on MyChart, they will receive notification of the communication/outcome via [employer]. * Telephone Encounter - Cierra Peacock - 05/25/2025 10:17 AM EDT Clinical Concern/Question Reason for Call: Patient is asking for a call back regarding needing the CT scan results. Best contact number: [phone] (mobile) Optimal time of day to reach caller: ANYTIME Additional comments/information from caller: None Note: Please do not reply to this message. Follow-up communication and further actions as a result of this message need to be communicated with the patient directly, if the patient is not active onMyChart. If the patient is active on MyChart, they will receive notification of the communication/outcome via [employer]. * Telephone Encounter - Ventura Hernandez - 05/19/2025 1:25 PM EDT Clinical Concern/Question Reason for Call: Patient calling to get CT results (05/05/25). Records in [facility]. Please review and call patient to discuss. Thank you Best contact number: [phone] (mobile) Optimal time of day to reach caller: ANYTIME Additional comments/information from caller: None Note: Please do not reply to this message. Follow-up communication and further actions as a result of this message need to be communicated with the patient directly, if the patient is not active onMyChart. If the patient is active on MyChart, they will receive notification of the communication/outcome via [employer]. documented in this encounter Plan of Treatment Upcoming Encounters Date Type Department Care Team (Late st Contact Info) Description 06/23/2025 8:00 AM EDT Office Visit [facility] Urology [address] [place] [address] Ministerio Rosas MD [address] [address] documented as of this encounter [...] documented as of this encounter Care Teams Day Care Worker Relationship Specialty Start Date End Date Khadijah Dolan APRN [address] [place] [address] PCP - General 05/04/25 Ministerio Rosas MD [address] [address] Surgeon Urology 09/23/24 documented as of this encounter
--- OUTSIDE RECORDS SUMMARY | 2025-05-27 16:54 | XMS_ITS | Encounter Summary ---
Author Organization [facility] Address [address] [place] [address] Care Team Providers Care Blanking Machine Operator Name Role Phone Ministerio Rosas MD Unavailable [phone] Khadijah Dolan APRN Primary Care Provider [phone] Encounter Details Date Type Department Care Team [...] at all 05/05/2025 2:57 PM EDT Jaxson Deleon documented as of this encounter Plan of Treatment Upcoming Encounters Date Type Department Care Team (Late st Contact Info) Description 06/23/2025 8:00 AM EDT Office Visit [facility] [address] [place] [address] Ministerio Rosas MD [address] [address] documented as of this encounter [...] documented as of this encounter Care Teams Blanking Machine Operator Relationship Specialty Start Date End Date Khadijah Dolan APRN [address] [place] [address] PCP - General 05/04/25 Ministerio Rosas MD [address] [address] Surgeon Urology 09/23/24 documented as of this encounter
--- OUTSIDE RECORDS SUMMARY | 2025-05-27 16:54 | XMS_ITS | Clinical Summary ---
Author Organization [facility] Address [address] [place] [address] Phone Care Team Providers Care Psych Sales Specialist Name Role Phone Lincoln Iqbal MD [ ] Conditions or Problems Problem Name Problem Code Onset Date Status Entry Date Provider Comment Standard Description Annotate long term care administrator (current) drug therapy, INH Z79.899 (ICD-10-CM ) 01/12 Active 01/12 Bobbi Eagle Other predatory animal exterminator (current) drug therapy Dysuria 42122040 (SNOMED CT) 12/19 Active 12/19 Lincoln Iqbal MD Dysuria Adverse drug reaction 965049109 (SNOMED CT) 12/19 Active 12/19 Lincoln Iqbal MD H/O: Disorder Nausea 940438589 (SNOMED CT) 12/19 Active 12/19 Lincoln Iqbal [...] involvement DM II with diabetic peripheral neuropathy 44917014 (SNOMED CT) Active Bobbi Eagle Type 2 [...] without damage to nail, initial encounter Obesity 631190189 (SNOMED CT) Inactive Bobbiarabella Eagle Obesity Diarrhea, antibiotic associated 691200976 (SNOMED CT) 11/20 Inactive 11/20 Bobbi Eagle Antibiotic-ass ociated diarrhea Diarrhea, antibiotic associated 897502938 (SNOMED CT) 11/20 Removed 11/20 Lincoln Iqbal MD Antibiotic-ass ociated diarrhea Obesity 538457662 (SNOMED CT) Removed Trish Napier RN Obesity [...] W Nicotine dependence, cigarettes, uncomplicated Tobacco abuse 85156171 (SNOMED CT) Inactive Lincoln Iqbal MD Tobacco dependence syndrome Septic arthritis, right hand/finger (identify bacteria) M00.841 (ICD-10-CM ) Removed Bobbi Eagle Arthritis due to other bacteria, right hand Abscess of right finger L02.511 (ICD-10-CM ) Removed Bobbi Eagle Cutaneous abscess of right hand Cellulitis of right finger L03.011 (ICD-10-CM ) Removed Bobbi Eagel Cellulitis of right finger Acute osteomyelitis, right finger M86.141 (ICD-10-CM ) Removed Bobbi Eagle Other acute osteomyelitis, right hand Benign Essential Hypertension 7269371 (SNOMED CT) Active Bobbi Eagle Benign essential hypertension DM Type II E11.9 (ICD-10-CM ) Inactive Bobbi Eagle Type 2 diabetes mellitus without complications Dog bite, initial treatment encounter(s) W54.0xxA (ICD-10-CM ) Removed Bobbi Eagle Bitten by dog, initial encounter Medications Medication Instructions Start Date Stop Date Generic Name ND Provider RIFAMPIN 300 MG CAPS 2 daily RIFAMPIN [id number] Lincoln Iqbal MD ISONIAZID 300 MG TABS one daily ISONIAZID 99891789724 Lincoln Iqbal MD B-6 50 MG TABS one daily PYRIDOXINE HCL 68618460229 Lincoln Iqbal MD TRAMADOL HCL 50 MG TABS by mouth twice daily TRAMADOL HCL 07948198386 Devonte Holland CELEBREX 200 MG CAPS by mouth daily CELECOXIB 92279886553 Devonte Holland LYRICA 150 MG CAPS by mouth twice daily PREGABALIN 52582454727 Devonte Holland DIAZEPAM 5 MG TABS Take/use as needed. DIAZEPAM 01523535440 Devonte Holland MELOXICAM 15 MG TABS by mouth daily MELOXICAM 03709298965 Devonte Holland NORCO 10-325 MG ORAL TABLET HYDROCODONE-ACET AMINOPHEN 28976749398 Devonte Holland VICOPROFEN 7.5-200 MG ORAL TABLET HYDROCODONE-IBUP ROFEN 80927117069 Devonte Holland BACTRIM DS 800-160 MG TABS SULFAMETHOXAZOLE -TRIMETHOPRIM 90512589615 Devonte Holland MUPIROCIN 2 % OINT apply daily to finger MUPIROCIN 09581950397 Devonte Amalia CIPROFLOXACIN HCL 500 MG TABS 1 by mouth twice a day CIPROFLOXACIN HCL 14719151681 Devonte Holland MINOCYCLINE HCL 100 MG CAPS one pill by mouth twice daily MINOCYCLINE HCL 23512615196 Devonte Holland INVANZ 1 GM INTRAVENOUS SOLUTION RECONSTITUTED 1gm IV daily [facility] [phone](f) [phone] ERTAPENEM SODIUM 64236439002 Clementine Pablo MINOCYCLINE HCL 100 MG CAPS one pill by mouth twice daily MINOCYCLINE HCL 13577862861 Lincoln Iqbal MD CIPROFLOXACIN HCL 500 MG TABS 1 by mouth twice a day CIPROFLOXACIN HCL 07122256608 Lincoln Iqbal MD INVSALVADOR 1 GM INTRAVENOUS SOLUTION RECONSTITUTED 1gm IV daily [facility] [phone](f) [phone] ERTAPENEM SODIUM 42373444476 [facility] INVANZ 1 GM INTRAVENOUS SOLUTION RECONSTITUTED 1gm IV daily [facility] (f) [phone] ERTAPENEM SODIUM 07188697295 [facility] MINOCYCLINE HCL 100 MG CAPS 1 twice daily MINOCYCLINE HCL 93916071679 Shyanne Rangel RN CIPROFLOXACIN HCL 500 MG TABS 1 by mouth twice a day CIPROFLOXACIN HCL 22433423001 Shyanne Rangel RN CIPROFLOXACIN HCL 500 MG TABS 1 by mouth twice a day CIPROFLOXACIN HCL 50968032562 Lincoln Iqbal MD MINOCYCLINE HCL 100 MG CAPS 1 twice daily MINOCYCLINE HCL 60561860176 Lincoln Iqbal MD MUPIROCIN 2 % OINT apply daily to finger MUPIROCIN 64277659437 Lincoln Iqbal MD VITAMIN D2 50 MCG (1999 [place]) TABS 1.25mg daily ERGOCALCIFEROL 15010657417 Parisa Marcial ALLEN LOW DOSE 81 MG TBEC by mouth daily ASPIRIN 10263404955 Parisa Marcial DIAZEPAM 5 MG TABS Take/use as needed. DIAZEPAM 01751029206 Parisa Marcial DICLOFENAC SODIUM 75 MG TBEC DICLOFENAC SODIUM 99620816775 Parisa Marcial LISINOPRIL 40 MG TABS by mouth daily LISINOPRIL 83690393996 Parisa Marcial LYRICA CAPS PREGABALIN CAPS 57912142394 aPrisa Marcial METFORMIN HCL 500 MG TABS by mouth twice daily METFORMIN HCL 92718223577 Parisa Marcial MELOXICAM 15 MG TABS by mouth daily MELOXICAM 44648289692 Parisa Marcial VOLTAREN 1 % GEL DICLOFENAC SODIUM 03593112356 Parisa Marcial VOLTAREN 1 % GEL DICLOFENAC SODIUM 37013832687 Janet Madden VICOPROFEN 7.5-200 MG ORAL TABLET HYDROCODONE-IBUP ROFEN 52904988006 Janet Solanox NORCO 10-325 MG ORAL TABLET HYDROCODONE-ACET AMINOPHEN 09629229235 Janet Solanox METFORMIN HCL 500 MG TABS METFORMIN HCL 33148454991 Janet Griffindox MELOXICAM TABS MELOXICAM TABS 79137783366 Janet Madden LYRICA CAPS PREGABALIN CAPS 26834805263 Janet Madden LISINOPRIL 40 MG TABS LISINOPRIL 40516681069 Janet Madden LEVOTHYROXINE SODIUM TABS LEVOTHYROXINE SODIUM TABS 05084444989 Janet Madden EFFEXOR XR 75 MG [id number] VENLAFAXINE HCL 10447000768 Janet Madden DICLOFENAC SODIUM 75 MG TBEC DICLOFENAC SODIUM 86203012251 Janet Madden DIAZEPAM 5 MG TABS DIAZEPAM 73413856290 Janet Madden BACTRIM DS 800-160 MG TABS SULFAMETHOXAZOLE -TRIMETHOPRIM 46004671218 Janet Madden Medications Administered No information available. [...] Blood by Automated count Lab Report: COMPREHENSIVE MA TABOLIC PANEL ANIONGAP 8.0 mmol/L 3.0-11.0 anion 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 REAL ESTATE ANALYST yes Dietary management education, guidance, and counseling [...] antibiotics 20 10/12/27 CPT-oral Discontinue oral antibiotics CPT-51782 CMP [id number] CBC with Differential 2018 CPT-99616 Urine Culture & Sensitivity CPT-32083 Urinalysis with microscopic exam CPT-patrice New Oral [...] New IV antibiotic CPT-patrice New Oral Antibiotic CPT-54498 PICC Line Insertion CPT-42815 PICC Line Insertion CPT-wpc Weekly PICC Line Care CPT- stat weekly Stat Weekly Labs [id number] CBC with Differential 2015 CPT-65310 CMP CPT-30453 C- reactive protein CPT-73456 Sedimentation Rate (ESR) 201 03/31/24 [address] Hepatitis C Atb: (ICD 10 Code: Z11.59) [...]
--- OUTSIDE RECORDS SUMMARY | 2025-05-27 16:55 | XMS_ITS | Encounter Summary ---
Author Organization [employer] ([place], [place], [place], [place]) Address [address] [place] [address] Care Team Providers Care Modeling Manager Name Role Phone Unavailable Primary Care Provider Unavailbrianna e Encounter Details Date Type Department Care Team (Late st Contact Info) Description 10/31/2020 Transcribed Document [facility] [place] Family Medicine [address] [place] [address] ProviderFarhan MD [address] [place], [place] [phone] Social History Tobacco Use Types Packs/Day Years [...] - Historical ProviderMD - 10/31/2020 2:00 AM DEPLOYMENT SPECIALIST Portfolio Consultant Details Entered On: 10/31/2020 2:40 EST Performed [...] 10/31/2020 2:40 EST Electronically signed by Kailey [facility] Conversion Tents Assembler Cerner at 02/08/2023 12:39 PM CDT documented in this encounter Plan of Treatment Not on file documented as of this encounter Visit Diagnoses Not on filedocumented in this encounter
--- OUTSIDE RECORDS SUMMARY | 2025-05-27 16:55 | XMS_ITS | Encounter Summary ---
Author Organization [facility] [employer] ([place], [place]) Address [address] [place] [address] Care Team Providers Care Veterinarian Poultry Name Role Phone Unavailable Primary Care Provider Unavailbrianna e Encounter Details Date Type Department Care Team (Late st Contact Info) Description 10/31/2020 Transcribed Document [facility] [place] Family Medicine [address] [place] [address] ProviderFarhan MD [address] [place] [address] Social History Tobacco Use Types [...] - Historical ProviderMD - 10/31/2020 5:00 AM FLUTE POLISHER Chart Check - Review Order Profile Entered On: 10/31/2020 6:54 EST Performed On: 10/31/2020 5:00 EST by Rebeca Espino RN Chart Check Powerplans Initiated/Discontinued as Appropriate : Yes All Active Orders Reviewed : Yes Rebeca Espino RN - 10/31/2020 6:54 EST Electronically signed by Kailey [facility] Conversion Technician Automatic Mario at 02/08/2023 12:43 PM CDT documented in this encounter Plan of Treatment Not on file documented as of this encounter Visit Diagnoses Not on filedocumented in this encounter
--- OUTSIDE RECORDS SUMMARY | 2025-05-27 16:55 | XMS_ITS | Encounter Summary ---
Author Organization [employer] ([place], [place], [place], [place]) Address [address] [place] [address] Care Team Providers Care Cement Contractor Name Role Phone Unavailable Primary Care Provider Unavailabl e Encounter Details Date Type Department Care Team (Late st Contact Info) Description 10/29/2020 Transcribed Document [facility] [place] [address] ProviderFarhan MD [address] [place] [address] Social History Tobacco Use Types [...] - Farhan ProviderMD - 10/29/2020 10:34 AM OXYACETYLENE WELDER Pain Assessment Entered On: 10/30/2020 20:02 EST [...]
--- OUTSIDE RECORDS SUMMARY | 2025-05-27 16:55 | XMS_ITS | Encounter Summary ---
Author Organization [facility] ([place], [place], [place], [place]) Address [address] [place] [address] Care Team Providers Care Station Operator Name Role Phone Unavailable Primary Care Provider Unavailabl e Encounter Details Date Type Department Care Team (Late st Contact Info) Description 10/29/2020 Transcribed Document [facility] [place] Family Medicine [facility] [place] [address] ProviderFarhan MD [address] [place] [address] Social History Tobacco Use Types [...] - Historical ProviderMD - 10/29/2020 10:34 AM CORPORATE LOGISTICS MANAGER Evaluation, Physical Therapy Entered On: 10/29/2020 15:22 [...] Steps : 2 Railing Outside : No KATINA LIANG, PT - 10/29/2020 15:23 EST Prior [...] KATINA LIANG, PT - 10/29/2020 15:23 EST Intermediate Goals Mobility/Bed Mobility LTG PT Grid Goal [...] KATINA LIANG, PT - 10/29/2020 15:23 EST [place] PT Charges PT Therap. Exercise 15 min : 1 PT Eval Low Complexity : 1 KATINA LIANG, PT - 10/29/2020 15:23 EST Electronically signed by [facility] Conversion [facility] Psychiatrist Vitorner at 02/08/2023 12:22 PM CDT documented in this encounter Plan of Treatment Not on file documented as of this encounter Visit Diagnoses Not on filedocumented in this encounter
--- OUTSIDE RECORDS SUMMARY | 2025-05-27 16:55 | XMS_ITS | Encounter Summary ---
Author Organization [employer] ([place], [place], [place], [place]) Address [address] [place] [address] Care Team Providers Care Night Clerk Name Role Phone Unavailable Primary Care Provider Unavailabl e Encounter Details Date Type Department Care Team (Late st Contact Info) Description 10/26/2020 Transcribed Document [facility] [place] [address] [place] [address] ProviderFarhan MD [address] [id number] Social History Tobacco Use Types Packs/Day Years [...] - Historical ProviderMD - 10/26/2020 9:22 AM LAPEL PADDER BLINDSTITCH Spiritual Care Assessment Entered On: 10/29/2020 7:43 EST Performed On: 10/29/2020 7:27 EST by SADIE ALEX General Information Initial Visit : Yes Referred by : Patient Referral Reason Comment : Pre-surgery visit Ministry Provided to : Patient Orthodoxy Preference : Confucianism SADIE ALEX P - 10/29/2020 7:43 EST Spiritual Assessment Spiritual Assessment Comment/Summary Points : Provided pre-surgery visit and prayer. Spirital Assessment Comment/Summary Report : SPIRITUAL ASSESSMENT COMMENT/SUMMARY No qualifying data available. SADIE ALEX P - 10/29/2020 7:43 EST Interventions Emotional Support : Empathic/Engaged listening Spiritual and Orthodoxy : Prayer shared, Spiritual/Orthodoxy support provided SADIE ALEX - 10/29/2020 7:43 EST Electronically signed by Kailey [facility] Conversion Cabinet Builder Cerner at 02/08/2023 12:38 PM CDT documented in this encounter Plan of Treatment Not on file documented as of this encounter Visit Diagnoses Not on filedocumented in this encounter
--- OUTSIDE RECORDS SUMMARY | 2025-05-27 16:55 | XMS_ITS | Encounter Summary ---
Author Organization [employer] ([place], [place], [place], [place]) Address [address] [place] [address] Care Team Providers Care Fire Protection Equipment Technician Name Role Phone Unavailable Primary Care Provider Unavailabl e Encounter Details Date Type Department Care Team (Late st Contact Info) Description 10/29/2020 Transcribed Document [facility] [place] Family Medicine [address] [place] [address] ProviderFarhan MD [address] [place] [address] Social History Tobacco Use Types [...] - Farhan ProviderMD - 10/29/2020 8:39 AM DESK MAKER [facility] Main OR Preop Summary Primary Physician: ADDIE VELIZ MD-SNU Finalized Date/Time: 10/29/20 12:44:39 Pt. Name: FRANSISCO CRAVEN/Sex: 1960 Male Med Rec #: [id number] Physician: ADDIE VELIZ MD-TANVIR Financial #: [id number] Pt. Type: I Room/Bed: 647/1 Admit/Disch: 10/29/20 12:20:00 - Institution: [facility] PreOp Case Times Entry 1 In Preop 10/29/20 06:05:00 Ready for Holding n/a Room Patient Ready for 10/29/20 07:31:00 Surgery Patient Out of Preop 10/29/20 08:11:00 Patient Out of n/a Holding Room Last Modified By: PEDRO Briceño RN 10/29/20 12:44:37 [facility] PreOp Case Times Audit 10/29/20 12:44:37 Remote Encoding Operations Supervisor: CHRISTY Modifier: WILSONDL <+> 1 Patient Out of Preop 10/29/20 07:31:08 Remote Encoding Operations Supervisor: CHRISTY Modifier: WILSONDL <+> 1 Patient Ready for Surgery Finalized By: PEDRO Briceño, RN Document Signatures Signed By: PEDRO Briceño RN 10/29/20 12:44 documented in this encounter Plan of Treatment Not on file documented as of this encounter Visit Diagnoses Not on filedocumented in this encounter
--- OUTSIDE RECORDS SUMMARY | 2025-05-27 16:55 | XMS_ITS | Encounter Summary ---
Author Organization [employer] ([place], [place], [place], [place]) Address [address] [place] [address] Care Team Providers Care Reagent Tender Helper Name Role Phone Unavailable Primary Care Provider Unavailabl e Encounter Details Date Type Department Care Team (Late st Contact Info) Description 10/31/2020 Transcribed Document [facility] [place] Family Medicine [facility] [place] [address] ProviderFarhan MD [address] [place], [place] [id number] Social History Tobacco Use Types Packs/Day Years [...] - Historical ProviderMD - 10/31/2020 3:52 PM PROFESSIONAL DRIVER Final Discharge Planning Entered On: 10/31/2020 15:53 EST Performed On: 10/31/2020 15:52 EST by SHAWNEE MAYORGA RN-Information Lead Final Discharge Planning Discharge Arrangements : Patient Post-Acute Information Patient Name: FRANSISCO CRAVEN Gender: Male : [birth year] Age: 60 Years No Post-Acute Placement(s) Listed No Post-Acute Service(s) Listed No [place] Referral(s) Listed Follow Up Appointment Scheduled : Yes Is Patient High/Moderate Readmission Risk? : No Discharge To Care Management : Home/Residential/Long-Term or Self Care - SHAWNEE MAYORGA RN-Information Lead - 10/31/2020 15:52 EST Final Narrative Note Final Narrative Note : To d/c home with . Per PLOF independent. Ordered walker and BSC from [facility] and to deliver to room prior to d/c. denies need for HH or other needs. SHAWNEE MAYORGA, RN-Information Lead - 10/31/2020 15:52 EST Electronically signed by Kailey [facility] Conversion Sand Filler Cerner at 02/08/2023 12:21 PM CDT documented in this encounter Plan of Treatment Not on file documented as of this encounter Visit Diagnoses Not on filedocumented in this encounter
--- OUTSIDE RECORDS SUMMARY | 2025-05-27 16:55 | XMS_ITS | Encounter Summary ---
Author Organization [employer] ([place], [place], [place], [place]) Address [address] [place] [address] Care Team Providers Care Blast Hole Driller Name Role Phone Unavailable Primary Care Provider Unavailabl e Encounter Details Date Type Department Care Team (Late st Contact Info) Description 10/29/2020 Transcribed Document [facility] Family Medicine [facility] [place] [address] ProviderFarhan MD [address] [place] [address] Social History Tobacco Use Types [...] - Farhan ProviderMD - 10/29/2020 8:39 AM HOB GRINDER [facility] Main OR IntraOp Summary Primary Physician: ADDIE VELIZ MD-SNU Finalized Date/Time: 10/30/20 16:24:05 Pt. Name: FRANSISCO CRAVEN/Sex: 1960 Male Med Rec #: [id number] Physician: ADDIE VELIZ MD-SNU Financial #: [id number] Pt. Type: I Room/Bed: [facility]/ Admit/Disch: 10/29/20 12:20:00 - Institution: [facility] IntraOp Case Attendance Entry 1 Entry 2 Entry 3 Case Attendee ADDIE VELIZ MD-SNU WASSON, SANDRA D, RN CLARI NORRIS RN Role Performed Surgeon/Proceduralist, Office Associate, First Office Associate, Second First Time In 10/29/20 08:13:00 10/29/20 [...] ASHLEY, APRN Role Performed Scrub, First Physician scheduling assistant BRAND DIRECTOR/Nurse Party Plan Salesperson Time In 10/29/20 08:13:00 10/29/20 08:13:00 10/29/20 08:13:00 Time Out 10/29/20 10:35:00 10/29/20 10:35:00 10/29/20 10:35:00 Procedure Lumbar Fusion Posterior Lumbar Fusion Posterior Lumbar Fusion Posterior 3 Level 3 Level 3 Level Other Attendee Superficial Wound Closed By: Last Modified By: TAE HERNANDEZ, TAE BARRISO, TAE BARRIOS, RN 10/29/20 10:35:34 10/29/20 10:35:34 10/29/20 10:35:34 Entry 7 Entry 8 Entry 9 Case Attendee Delma Escobedo, OTHER, ATTENDEE #1 ROCIO ALCALA RN Diagnostic Municipal Engineer Role Performed Esthetician/Spa Coordinator Vendor Office Associate, Second Time In 10/29/20 08:13:00 10/29/20 08:13:00 10/29/20 08:35:00 Time Out 10/29/20 10:35:00 10/29/20 10:35:00 10/29/20 08:45:00 Procedure Lumbar Fusion Posterior Lumbar Fusion Posterior Lumbar Fusion Posterior 3 Level 3 Level 3 Level Other Attendee FRANC KONG Superficial Wound Closed By: Last Modified By: TAE HERNANDEZ, TAE BARRIOS, RN TAE HERNANDEZ, RN 10/29/20 10:35:34 10/29/20 08:31:47 10/29/20 08:40:39 Entry 10 Entry 11 Case Attendee PROMISE ZAMORANO Sawyer, Susan, DAVID-GENI Monorail Charger Operator Role Performed BRAND DIRECTOR/Nurse Party Plan Salesperson Esthetician/Spa Coordinator Time In 10/29/20 09:43:00 10/29/20 09:44:00 Time Out 10/29/20 09:55:00 10/29/20 10:14:00 Procedure Lumbar Fusion Posterior Lumbar Fusion Posterior 3 Level 3 Level Other Attendee BRAND DIRECTOR BREAK RELIEF RT BREAK RELIEF Superficial Wound Closed By: Last Modified By: TAE HERNANDEZ, TAE BARRIOS, RN 10/29/20 09:44:46 10/29/20 09:44:46 [facility] IntraOp Case Attendance Audit 10/29/20 10:35:34 Manager Harbor: WASSONSY Modifier: WASSONSY 1 <+> Time Out [...] Lumbar Fusion Posterior 3 Level 10/29/20 10:19:58 Manager Harbor: WASSONSY Modifier: WASSONSY 7 <-> Time Out 10/29/20 09:44:00 7 <*> Procedure Lumbar Fusion Posterior 3 Level 11 <+> Time Out 11 <*> Procedure Lumbar Fusion Posterior 3 Level 10/29/20 10:11:32 Manager Harbor: WASSONSY Modifier: WASSONSY 7 <+> Time Out 7 <*> Procedure Lumbar Fusion Posterior 3 Level 10/29/20 09:55:51 Manager Harbor: WASSONSY Modifier: WASSONSY 10 <*> Time Out 10/29/20 10:03:00 10 <*> Procedure Lumbar Fusion Posterior 3 Level 10/29/20 09:44:46 Manager Harbor: WASSONSY Modifier: WASSONSY <+> 10 Case Attendee <+> 10 Role Performed <+> 10 Time In <+> 10 Time Out <+> 10 Procedure <+> 10 Other Attendee <+> 11 Case Attendee <+> 11 Role Performed <+> 11 Time In <+> 11 Procedure <+> 11 Other Attendee 10/29/20 08:40:39 Manager Harbor: WASSONSY Modifier: WASSONSY <+> 9 Case Attendee <+> 9 Role Performed <+> 9 Time In <+> 9 Time Out <+> 9 Procedure 10/29/20 08:39:35 Manager Harbor: WASSONSY Modifier: WASSONSY 1 <*> Procedure Lumbar [...] Lumbar Fusion Posterior 3 Level 10/29/20 08:31:47 Manager Harbor: WASSONSY Modifier: WASSONSY 1 <+> Time In [...] <+> 8 Procedure <+> 8 Other Attendee [facility] IntraOp Case Times Entry 1 Patient In Room Time 10/29/20 08:13:00 Out Room Time 10/29/20 10:35:00 Anesthesia Start Time 10/29/20 08:13:00 Stop Time 10/29/20 10:35:00 Surgery / Procedure Times Start Time 10/29/20 08:39:00 Stop Time 10/29/20 10:27:00 Last Modified By: TAE HERNANDEZ RN 10/29/20 10:28:15 [facility] IntraOp Case Times Audit 10/29/20 10:35:30 Manager Harbor: WASSONSY Modifier: WASSONSY <+> 1 Out Room Time <+> 1 Stop Time 10/29/20 10:28:15 Manager Harbor: WASSONSY Modifier: WASSONSY <+> 1 Stop Time 10/29/20 08:39:38 Manager Harbor: WASSONSY Modifier: WASSONSY <+> 1 Start Time [facility] IntraOp Cautery Entry 1 Entry 2 ESU Identification Cautery Type Monopolar ESU BiPolar ESU Cautery Type Comments ID Number [id number] ID Type Hospital Number Hospital Number Cautery [...] SANDRA D, RN 10/29/20 08:47:23 10/29/20 08:47:23 [facility] IntraOp Cautery Audit 10/29/20 08:49:38 Manager Harbor: WASSONSY Modifier: WASSONSY 1 <+> Grounding Pad Site 1 <*> Grounding Pad Applied By TAE HERNANDEZ RN [facility] IntraOp Communication Entry 1 Communication To Family/Significant other Comment START Communication By ROCIO ALCALA RN Date and Time 10/29/20 08:40:00 Last Modified By: TAE HERNANDEZ RN 10/29/20 08:40:48 [facility] IntraOp Counts Verification Entry 1 [...] S[place] IntraOp Counts Verification Audit 10/29/20 10:20:15 Manager Harbor: WASSONSY Modifier: WASSONSY <+> 2 Procedure <+> 2 Count Type <+> 2 Counts Verification Sequence <+> 2 Count Results <+> 2 Count Performed By (Scrub) <+> 2 Count Performed By (RN) [facility] IntraOp Counts Final Entry 1 Procedure Lumbar Fusion Posterior 3 Level Final Count Info Count Type Sponge, Sharps, Miscellaneous Counts Verification Skin Closure/end of Sequence procedure Count Results Correct, surgeon notified Counts Performed By Count Performed By RAFAEL HAAS ST (Scrub) Count Performed By CLARI NORRIS RN (RN) Last Modified By: TAE HERNANDEZ RN 10/29/20 10:24:34 [facility] IntraOp Cultures and Spec Summary Entry 1 Cultrures and Specimens Specimen Ordered: Yes Test(s) Routine/Path-Lab Requested/Final Disposition Last Modified By: TAE HERNANDEZ RN 10/29/20 09:15:02 General Comments: A. EXPLANTED HARDWARE [facility] IntraOp Delays Entry 1 Delay Reason Surgeon late - did not call Duration 13 Minute(s) Last Modified By: TAE HERNANDEZ RN 10/29/20 08:50:02 [facility] IntraOp Departure from OR Entry 1 Integumentary Assessment Integumentary WDL Assessment WDL Transfer/Handoff Transfer to PACU Phase I Handoff Method Phone call Handoff Reported to Gabo Lim RN Post-op Transport Stretcher/Marilyn Via Patient Transport KAREN PEREA, Accompanied by MARY HERNANDEZ MEGHAN, PA Last Modified By: TAE HERNANDEZ RN 10/29/20 10:12:58 [facility] IntraOp Departure from OR Audit 10/29/20 10:12:58 Manager Harbor: WASSONSY Modifier: WASSONSY <+> 1 Handoff Reported to 10/29/20 08:50:26 Manager Harbor: WASSONSY Modifier: WASSONSY 1 <*> Post-op Transport Via Bed (including specialty) [facility] IntraOp Drains and Tubes Entry 1 Device Type Alcon Engel round drain Size 15 FR Drain/Tube Activity Inserted Drain/Tube Suction Bulb Drain/Tube Drainage Serosanguineous Device Location OP SITE Method of Drainage Compression Last Modified By: TAE HERNANDEZ RN 10/29/20 10:09:39 [facility] IntraOp Dressing and Packing Entry 1 Type Dressing Location back Wound Dressing Item Other Applied By CIRO HERNANDEZ PA Other Comments NEOSPORIN OINTMENT, COVADERMS Last Modified By: TAE HERNANDEZ RN 10/29/20 09:41:56 [facility] IntraOp Fire Risk Assessment Entry 1 Fire Info Surgical Site or 0- No Incision Above the Xyphoid Open O2 Source 0- No (Mask or Cannula) Available Ignition 1- Yes (ESU, Laser, Light Source) Fire Risk 1 Assessment Score Fire Score Fire Risk Yes Assessment Complete Fire Risk TAE HERNANDEZ teacher of the visually impaired Verified By Fire Risk 10/29/20 08:42:00 Assessment Verified Date/Time Fire Risk Standard Fire Yes Safety Precautions Followed Last Modified By: TAE HERNANDEZ RN 10/29/20 08:42:30 [facility] IntraOp General Case Musical Instrument Maker 1 Case Information OR OR 10 [facility] Case Level 1 Room Verified Yes Wound Class I - Clean Specialty SN Neurosurgery Anesthesia Type General ASA Class 3 Diagnosis Preop Diagnosis LUMBAR SPONDYLOLISTHESIS Postop Same As Preop No Postop Diagnosis PLEASE SEE MD NOTES. Last Modified By: TAE HERNANDEZ RN 10/29/20 08:45:22 [facility] IntraOp General Case Data Audit 10/29/20 08:51:32 Manager Harbor: WASSONSY Modifier: WASSONSY 1 <*> Preop Diagnosis LUMBAR STENOSIS 10/29/20 08:46:36 Manager Harbor: WASSONSY Modifier: WASSONSY <+> 1 Preop Diagnosis [facility] IntraOp Implant Log Entry 1 Entry 2 Entry 3 Type Tissue Implant Implant (Synthetic) Implant (Synthetic) (Biologic) Implant Log Implant Type Hardware Hardware Tissue Implant Type Bone Implant BONE VIVIGEN FORMABLE SPACR OPAL-RSLV SCR JEREMIAS FIX Identification CELL [id number] Description Implant Quantity 1 2 4 Implant Site OP SITE OP SITE OP SITE Implant Identification Model Number Implant [id number] Identification Serial Number Implant Identification Lot Number Implant Lifenet:Lifenet Synthes:Synthes J&J:Depuy:Depuy Spine Identification Transplant Srv Usa:Spine Gravel Truck Driver Name: Implant [id number] Identification Catalog Number Implant Size Implant Has an Yes Expiration Date Implant Expiration 09/30/21 Date Wasted Radioactive Material Time Implanted Tissue Implant Continue for Tissue Implant Documentation Tissue Identification Number Graft Prep Per Gravel Truck Driver Instructions: Tissue Preparation Method: Reconstitution Solution: Reconstitution Solution Lot Number Reconstitution Solution Expiration Date: Thawing Solution Thawing Solution Lot Number Thawing Solution Expiration Date Preparation Materials, Other Preparation Materials, Other Lot Number Preparation Materials, Other Expiration Date Tissue Prepared/Processed By Gravel Truck Driver Paperwork Completed Implant Type Comment Last Modified By: TAE HERNANDEZ, TAE BARRIOS RN WASSON, SANDRA D, RN 10/29/20 09:41:23 10/29/20 10:03:44 10/29/20 10:03:44 Entry 4 Entry 5 Entry 6 Type Implant (Synthetic) Implant (Synthetic) Implant (Synthetic) Implant Log Implant Type Hardware Hardware Hardware Tissue Implant Type Implant MIS FEAL PLY SCRW SET LENNOX PRE LOAD [id number] LENNOX PRE LOAD [id number] Identification [id number] Description Implant Quantity 6 1 1 Implant Site OP SITE OP SITE OP SITE Implant Identification Model Number Implant Identification Serial Number Implant Identification Lot Number Implant J&J:Depuy:Depuy Spine J&J:Depuy:Depuy Spine J&J:Depuy:Depuy Spine Identification Gravel Truck Driver Name: Implant [id number] Identification Catalog Number Implant Size Implant Has an Expiration Date Implant Expiration Date Wasted Radioactive Material Time Implanted Tissue Implant Continue for Tissue Implant Documentation Tissue Identification Number Graft Prep Per Gravel Truck Driver Instructions: Tissue Preparation Method: Reconstitution Solution: Reconstitution Solution Lot Number Reconstitution Solution Expiration Date: Thawing Solution Thawing Solution Lot Number Thawing Solution Expiration Date Preparation Materials, Other Preparation Materials, Other Lot Number Preparation Materials, Other Expiration Date Tissue Prepared/Processed By Gravel Truck Driver Paperwork Completed Implant Type Comment Last Modified By: TAE HERNANDEZ RN WASSON, SANDRA D RN TAE HERNANDEZ RN 10/29/20 10:03:44 10/29/20 10:03:44 10/29/20 10:03:44 [facility] IntraOp Implant Log Audit 10/29/20 10:03:44 Manager Harbor: DAVIDARLEN Modifier: WASSONSY <+> 2 Implant Identification Description <+> 2 Implant Identification Gravel Truck Driver Name: <+> 2 Implant Site <+> 2 Implant Quantity <+> 2 Implant Identification Catalog Number <+> 2 Implant Type <+> 2 Type <+> 3 Implant Identification Description <+> 3 Implant Identification Gravel Truck Driver Name: <+> 3 Implant Site <+> 3 Implant Quantity <+> 3 Implant Identification Catalog Number <+> 3 Implant Type <+> 3 Type <+> 4 Implant Identification Description <+> 4 Implant Identification Gravel Truck Driver Name: <+> 4 Implant Site <+> 4 Implant Quantity <+> 4 Implant Identification Catalog Number <+> 4 Implant Type <+> 4 Type <+> 5 Implant Identification Description <+> 5 Implant Identification Gravel Truck Driver Name: <+> 5 Implant Site <+> 5 Implant Quantity <+> 5 Implant Identification Catalog Number <+> 5 Implant Type <+> 5 Type <+> 6 Implant Identification Description <+> 6 Implant Identification Gravel Truck Driver Name: <+> 6 Implant Site <+> 6 Implant Quantity <+> 6 Implant Identification Catalog Number <+> 6 Implant Type <+> 6 Type [facility] IntraOp Intraoperative Assessment Entry 1 [...] Modified By: TAE HERNANDEZ RN 10/29/20 08:51:48 [facility] IntraOp Intraoperative Assessment Audit 10/29/20 08:51:48 Manager Harbor: HOPEIANARLEN Modifier: DAVIDSY 1 <*> Skin Assessment Verified Yes 1 <*> Handoff Method Bedside/Face to face [facility] IntraOp Intraoperative Equipment Entry 1 Type Equipment Equipment Equipment Abelardo Suction System ID Number [id number] Setting 200 MM HG Intraop Monitoring Electrocardiogram Five lead placement (ECG) Electrode Placement Blood Pressure Non-Invasive BP Device Source Blood Pressure Arm, right upper Location Pulse Oximeter Hand, left Probe Site Antiembolic Devices Antiembolic Devices Sequential compression device, knee high Antiembolic Device Bilateral Location Antiembolic Device [id number] ID Number Antiembolic Device standard Setting Scopes Photo/Video Documentation Photo No Video No Last Modified By: TAE HERNANDEZ RN 10/29/20 08:46:20 [facility] IntraOp Intraoperative Equipment Audit 10/29/20 08:52:26 Manager Harbor: WASSONSY Modifier: WASSONSY 1 <+> ID Number 1 <*> Setting 200 1 <+> Electrocardiogram (ECG) Electrode Placement 1 <+> Blood Pressure Location 1 <+> Pulse Oximeter Probe Site 1 <+> Blood Pressure Source 1 <+> Antiembolic Device ID Number [facility] IntraOp Medication Admin Entry 1 Entry 2 Entry 3 Medication/Irrigant thrombin 5000units SPNG SURGFOAM SEALR AQUAMANTYS BIPLR topical powder - [id number] Combo Med List Time Administered Route of topical TOPICAL OTHER Administration Dose Dose 5000 1 Unit of Measure units pkt Volume qs Administered By ADDIE VELIZ MD-ADDIE PASCUAL MD-ADDIE PASCUAL MD-SNNegrita Procedure Irrigation Irrigant Volume In Irrigant Volume Out Last Modified By: TAE HERNANDEZ, TAE BARRIOS, TAE BARRIOS RN 10/29/20 08:53:36 10/29/20 08:53:36 10/29/20 08:53:36 Entry 4 Medication/Irrigant Neosporin 15Gm ointment - [id number] Combo Med List Time Administered Route of TOPICAL Administration Dose Dose 1 Unit of Measure pkt Volume Administered By CIRO HERNANDEZ PA Procedure Irrigation Irrigant Volume In Irrigant Volume Out Last Modified By: TAE HERNANDEZ RN 10/29/20 08:53:36 [facility] IntraOp Medication Admin Audit 10/29/20 08:53:36 Manager Harbor: WASSONSY Modifier: WASSONSY 1 <*> Medication/Irrigant thrombin 5000units topical powder - [id number] <+> 2 Medication/Irrigant <+> 2 Route of Administration <+> 2 Administered By <+> 2 Dose <+> 2 Unit of Measure <+> 3 Medication/Irrigant <+> 3 Route of Administration <+> 3 Administered By <+> 4 Medication/Irrigant <+> 4 Route of Administration <+> 4 Administered By <+> 4 Dose <+> 4 Unit of Measure [facility] IntraOp Patient Positioning Entry 1 [...] Modified By: TAE HERNANDEZ RN 10/29/20 09:05:55 [facility] IntraOp Sign In Entry 1 [...] Modified By: TAE HERNANDEZ RN 10/29/20 08:54:11 [facility] IntraOp Sign In Audit 10/29/20 08:54:11 Manager Harbor: HOPEIANSY Modifier: WASSONSY 1 <*> Surgical Site Marked by person Yes performing procedure 1 <*> Difficult Airway/Aspiration Risk No 1 <*> Blood Loss Risk No 1 <*> Blood Identifiers Verified Per Not applicable Policy [facility] IntraOp Sign Out Entry 1 [...] Modified By: TAE HERNANDEZ RN 10/29/20 09:06:53 [facility] IntraOp Sign Out Audit 10/29/20 10:35:47 Manager Harbor: MYAH Modifier: WASIANSY <+> 1 RN Sign Out Signature Date/Time [facility] IntraOp Skin Prep Entry 1 Procedure Lumbar Fusion Posterior 3 Level Prescribed Yes Pre-Surgical Prep Completed Prep Area back Intraop Prep Integumentary WDL Assessment WDL Prep Agents DuraPrep Prep by TAE HERNANDEZ, RN Hair Removal Methods No hair removal performed Last Modified By: TAE HERNANDEZ RN 10/29/20 08:45:47 [facility] IntraOp Surgical Procedures Entry 1 Procedure Lumbar Fusion Posterior 3 Level Additional (L3-5 PLIF USING AIRO) Procedure Description Primary Procedure Yes Primary Surgeon ADDIE VELIZ MD-SNU Start 10/29/20 08:39:00 Stop 10/29/20 10:27:00 Anesthesia Type General Specialty SN Neurosurgery Wound Class I - Clean Last Modified By: TAE HERNANDEZ RN 10/29/20 09:08:03 General Comments: CLLINDA [facility] IntraOp Surgical Procedures Audit 10/29/20 10:28:18 Manager Harbor: MYAH Modifier: WASSONSY 1 <*> Stop [facility] IntraOp Temp Regulation Devices Entry 1 Temp Regulation Temperature Forced Air Warming Regulation Device device Temperature 18303 Regulation Device Serial/Unit Number Temperature Upper body Regulation Site Temperature Device 43 C Setting Temperature KAREN PEREA APRN Regulation Device Applied by Last Modified By: TAE HERNANDEZ RN 10/29/20 08:46:05 [facility] IntraOp Temp Regulation Devices Audit 10/29/20 09:06:09 Manager Harbor: MYAH Modifier: MYAH <+> 1 Temperature Regulation Device Serial/Unit Number <+> 1 Temperature Device Setting [facility] IntraOP Time Out Entry 1 [...] Modified By: TAE HERNANDEZ RN 10/29/20 08:44:19 [facility] IntraOp X-Ray and Images Entry 1 X-Ray/Imaging Type Other Fluoroscopy Type Other Site back Sr Community Manager Name Demla Escobedo, Diagnostic Municipal Engineer Protective Devices Yes Used X-Ray and Imaging brainlab intraoperative Comment ct scanner Last Modified By: TAE HERNANDEZ RN 10/29/20 08:46:47 [facility] IntraOp X-Ray and Images Audit 10/29/20 09:06:27 Manager Harbor: MYAH Modifier: MYAH <+> 1 Sr Community Manager Name Case Comments <None> Finalized By: DENNYS SANTO Document Signatures Signed By: TAE HERNANDEZ RN 10/29/20 10:35 DENNYS SANTO 10/30/20 16:24 Unfinalized History Date/Time Username Reason for Unfinalizing Freetext Reason for Unfinalizing 10/30/20 16:22 [email or web address] Correct Billing Electronically signed by Kailey [facility] Plan Administrator Cerner at 02/08/2023 12:31 PM CDT documented in this encounter Plan of Treatment Not on file documented as of this encounter Visit Diagnoses Not on filedocumented in this encounter
--- OUTSIDE RECORDS SUMMARY | 2025-05-27 16:55 | XMS_ITS | Clinical Summary ---
Author Organization [facility] Address [address] [place] [address] Care Team Providers Care Articulation Officer Name Role Phone Maycol Erickson PA-C Primary Care Provider [phone] Allergies Active Allergy Reactions Criticality Noted Date [...] Hemoglobin A1C 5.1 4.00 - 6.00 % [facility] Comment: DF by IF @ 10/12/2014 11:49 The [place] [employer] recommends maintenance of Hemoglobin A1C at 7.0% or lower. Goals for Hemoglobin A1C reduction may need to be modified if hypoglycemia is a problem. Mean Bld Glu Estim. 93 mg/dL [facility] Blood specimen (specimen) 10/12/2014 10:50 AM EST Narrative [facility] - 10/12/2014 11:49 AM EST Specimen Type: Blood [facility] Santo Klein Jr., MD LAB BLOOD ORDERABLE S Final Result [facility] [address] [place] [address], from Last 3 Months or Most Recently Relevant to Health Maintenance [place] [address] [address] [place] [address] MEDICARE ADVANTAGE Care Teams Articulation Officer Relationship Specialty Start Date End Date Maycol Erickson PA-C [address] [place] [address] PCP - General Physician Stonecutter Assistant 08/15/16
--- OUTSIDE RECORDS SUMMARY | 2025-05-27 16:55 | XMS_ITS | Encounter Summary ---
Author Organization [employer] ([place], [place], [place], [place]) Address [address] [place] [address] Care Team Providers Care Promotor Group Ticket Sales Name Role Phone Unavailable Primary Care Provider Unavailabl e Encounter Details Date Type Department Care Team (Late st Contact Info) Description 10/31/2020 Transcribed Document [facility] Family Medicine [address] [place] [address] ProviderFarhan MD [address] [place] [address] Social History Tobacco Use Types [...] - Farhan ProviderMD - 10/31/2020 2:52 PM SERVER SUPPORT TECHNICIAN [facility] [place] [address] FRANSISCO CRAVEN :1960 Visit Time:10/29/2020 Your [...] 1) tramadol (Ultram)--this will be replaced by [place] (hydrocodone-acetaminophen) call MD for fever greater than 101 degrees for 24 hours; increased pain,redness or swelling and/or drainage after 5 days Follow-Up Appointments Follow Up with ADDIE VELIZ When Within 2 weeks Nirali hylton Where: [address] [place] [address] [address] [place] [address] [employer] (1) Medications What How Much When Instructions Next Dose acetaminophen-hydrocodone ([place] 10 mg-325 mg oral tablet) 1 Tablet(s) [...] these instructions at home: Medicines ??? Take hbdh-wfp-dwghtoq and prescription medicines only as told by [...] cannot use soap and water, use hand night stocker. ? Change your bandage as told by [...] your pee (urine) pale yellow. ? Take xgbc-lmw-cpyuhzj or prescription medicines. ? Eat foods that [...] 02/01/2012 Document Revised: 01/29/2020 Document Reviewed: 01/22/2018 [employer] Patient Education ?? 2020 [employer] acetaminophen and hydrocodone (a SEET a MIN oh fen and michael droe KOE done) Hycet, Lorcet, [place], Verdrocet, Vicodin, Xodol, Zamicet What is the [...] may report side effects to FDA at 7-777-FFU-1088. What other drugs will affect acetaminophen and [...] affect acetaminophen and hydrocodone, including prescription and cooz-jgs-pckllqt medicines, vitamins, and herbal products. Not all [...] to ensure that the information provided by [employer]') is accurate, up-to-date, and complete, but no guarantee is made to that effect. Drug information contained herein may be time sensitive. [employer] information has been compiled for use by healthcare practitioners and consumers in the [place] and therefore [employer] does not warrant that uses outside of the [place] are appropriate, unless specifically indicated otherwise. [employer] drug information does not endorse drugs, diagnose patients or recommend therapy. [employer] drug information is an informational resource designed [...] with your doctor, nurse or pharmacist. Copyright 7914-8947 [employer] Version: 16.01. Revision Date: 11/12/2019. Emergency Awareness [...] Assistance with quitting is available by contacting 3-689-XKNK-NOW. This is a free resource providing counseling, [...] range between ( 0.0 and 7.0 ) Sebastian #: 1.07 K/uL -- Normal range between ( 0.16 and 1.00 ) Eos #: 0.03 x10(3)/uL -- Normal range between ( 0.00 and 0.80 ) Sebastian %: 7.3 % -- Normal range between [...] ) Urine Bilirubin Dipstick: Negative Urine Specific [place]: *1.028 -- Normal range between ( 1.005 [...] was given the opportunity to ask questions. Patient/Arc Cutter Name: Patient/Arc Cutter Signature: Relationship to Patient: Clinician/Hospital Arc Cutter Signature: Date: Electronically signed by Kailey, Louis Conversion Health Management Consultant V[employer] at 02/08/2023 12:40 PM CDT documented in this encounter Plan of Treatment Not on file documented as of this encounter Visit Diagnoses Not on filedocumented in this encounter
--- OUTSIDE RECORDS SUMMARY | 2025-05-27 16:55 | XMS_ITS | Encounter Summary ---
Author Organization [employer] ([place], [place], [place], [place]) Address [address] [place] [address] Care Team Providers Care Geology Faculty Member Name Role Phone Unavailable Primary Care Provider Unavailabl e Encounter Details Date Type Department Care Team (Late st Contact Info) Description 10/31/2020 Transcribed Document [facility] Radiology [address] [place] [address] Mary Beth Orr MD [address] [address] Social History Tobacco Use Types [...] is a 60 yo male admitted to [facility] per Dr. Green for an [...] 100 mg intravenous injection 1 Infusion, IntraVENous, [id number] Jardiance 25 mg oral tablet 25 mg [...]
--- OUTSIDE RECORDS SUMMARY | 2025-05-27 16:55 | XMS_ITS | Encounter Summary ---
Author Organization [employer] ([place], [place], [place], [place]) Address [address] [place] [address] Care Team Providers Care Archives Director Name Role Phone Unavailable Primary Care Provider Unavailabl e Encounter Details Date Type Department Care Team (Late st Contact Info) Description 10/26/2020 Transcribed Document [facility] Family Medicine [facility] [address] ProviderFarhan MD [address] [place] [address] Social History Tobacco Use Types [...] - Historical ProviderMD - 10/26/2020 9:18 AM PROGRAMMER OPERATOR NUMERICAL CONTROL PAT Adult Entered On: 10/26/2020 9:22 EST [...] Source : Estimated Height Entry Format : TXCOM Height, Feet : 5 ft(Converted to: 152 cm, 60 Inch) Height, Inches : 9 Inch(Converted to: 0 ft 9 Inch, 22.86 cm) Clinical Height : 175.26 cm Weight Source : Standing scale Weight Entry Format : [place] Clinical Dosing Weight : 106.36 kg Weight, Pounds : 234 lb Body Surface Area (BSA) : 2.21 m2 Body Mass Index : 34.6 kg/m2 (HI) [place] Body Weight : 70 kg Jolene Lino [...] : Yes Spiritual/Cultural Needs Comment : 10/29/20 Voodoo Preference : Sabianist Spiritual/Cultural Needs Comment : 10/29/20 Toni Kirby Rn - 10/26/2020 9:18 EST [place] Suicide Severity Rating Scale (C-SSRS) CSSRS Past [...] RN - 10/29/2020 6:56 EST Support Person/Patient Commissions Coordinator : Yes Support Person/Pt Rep Name : Taylor Silvestre - Support Person/Pt Rep Contact Information : [phone] Want Family/Rep/Phys Notified of Admit : No Toni Kirby Rn - 10/26/2020 9:18 EST Emergency Contact #1 : Taylor Konrad Emergency Contact #1 ` Emergency Contact #1 Relationship : ` Jolene Lino Rn - 10/27/2020 10:51 EST Emergency Contact #2 : ` Emergency Contact #2 Phone Number : ` Emergency Contact #2 Relationship : ` Primary Language : Ukrainian Preferred Communication Mode : Verbal Communication Barrier : None Tissue Coordinator Needed : No Toni Kirby Rn - [...]
--- OUTSIDE RECORDS SUMMARY | 2025-05-27 16:55 | XMS_ITS | Encounter Summary ---
Author Organization [facility] Address [address] [place] [address] Care Team Providers Care Taping Supervisor Name Role Phone Ministerio Rosas MD Unavailable Khadijah Dolan APRN Primary Care Provider [phone] Encounter Details Date Type Department Care Team [...] Description 06/23/2025 8:00 AM EDT Office Visit [facility] [address] [place] [address] Ministerio Rosas MD [address] [facility] [address] [place] [address] documented as of this encounter [...] documented as of this encounter Care Teams Taping Supervisor Relationship Specialty Start Date End Date Khadijah Dolan APRN [address] [place] [address] PCP - General 05/04/25 Ministerio Rosas MD [address] [facility] [address] [place] [address] Surgeon Urology 09/23/24 documented as of this encounter
--- OUTSIDE RECORDS SUMMARY | 2025-05-27 16:55 | XMS_ITS | Encounter Summary ---
Author Organization [employer] ([place], [place], [place], [place]) Address [address] [place] [address] Care Team Providers Care Basket Patcher Name Role Phone Unavailable Primary Care Provider Unavailabl e Encounter Details Date Type Department Care Team (Late st Contact Info) Description 10/29/2020 Transcribed Document [facility] Radiology 1 [place] [address] Vicente Orr MD [address] [address] Social History Tobacco Use Types [...] is a 60 yo male admitted to [facility] per Dr. Green for an L3-5 [...] 100 mg intravenous injection 1 Infusion, IntraVENous, [id number] Jardiance 25 mg oral tablet 25 mg [...]
--- OUTSIDE RECORDS SUMMARY | 2025-05-27 16:55 | XMS_ITS | Encounter Summary ---
Author Organization [employer] ([place], [place], [place], [place]) Address [address] [place] [address] Care Team Providers Care Senior Manager Name Role Phone Unavailable Primary Care Provider Unavailabl e Encounter Details Date Type Department Care Team (Late st Contact Info) Description 10/28/2020 Transcribed Document [facility] [place] [address] [place] [address] ProviderFarhan MD [address] [place] [address] Social History Tobacco Use Types [...] - Historical ProviderMD - 10/28/2020 12:39 PM FOOD SAFETY AUDITOR UM Authorization Entered On: 10/28/2020 12:40 EST Performed On: 10/28/2020 12:39 EST by DERICK SHIPMAN, Cask Maker Primary Insurance Authorization Authorization and Policy Numbers : Insurance 1 Health Plan: [employer] CHOICE PPO Policy Number: [id number] Authorization Number: Insurance Primary Name : [employer] Choice [id number] Auth/Referral Contact Name-Primary : Alfredo Casas Authorization [...] : No Authorization Comments Found DERICK SHIPMAN, Cask Maker - 10/28/2020 12:39 EST Electronically signed by Kailey, [facility] Conversion Construction Driller Cerner at 02/08/2023 12:46 PM CDT documented in this encounter Plan of Treatment Not on file documented as of this encounter Visit Diagnoses Not on filedocumented in this encounter
--- OUTSIDE RECORDS SUMMARY | 2025-05-27 16:55 | XMS_ITS | Encounter Summary ---
Author Organization [employer] ([place], [place], [place], [place]) Address [address] [place] [address] Care Team Providers Care Senior Speech Pathologist Name Role Phone Unavailable Primary Care Provider Unavailabl e Encounter Details Date Type Department Care Team (Late st Contact Info) Description 10/29/2020 Transcribed Document [facility] [place] [address] [place] [address] ProviderFarhan MD [address] [place] [address] Social History Tobacco Use Types [...] - Farhan ProviderMD - 10/29/2020 8:39 AM HAND WOODWORKING SANDER [facility] Main OR PACU Summary Primary Physician: ADDIE VELIZ MD-[facility] Finalized Date/Time: 10/29/20 12:13:32 Pt. Name: FRANSISCO CRAVEN/Sex: 1960 Male Med Rec #: [id number] Physician: ADDIE VELIZ MD-SN Financial #: [id number] Pt. Type: I Room/Bed: / Admit/Disch: 09/22/20 10:37:00 - Institution: [facility] Main OR PACU I Case Times Entry 1 In PACU I 10/29/20 10:38:00 Ready for PACU 10/29/20 12:00:00 Discharge Discharge from PACU 10/29/20 12:00:00 I Last Modified By: DANIELLE CLANCY RN 10/29/20 12:13:15 Finalized By: DANIELLE CLANCY, RN Document Signatures Signed By: DANIELLE CLANCY RN 10/29/20 12:13 Electronically signed by Kailey [facility] Conversion Trauma Doctor Cerner at 02/08/2023 12:20 PM CDT documented in this encounter Plan of Treatment Not on file documented as of this encounter Visit Diagnoses Not on filedocumented in this encounter
--- OUTSIDE RECORDS SUMMARY | 2025-05-27 16:55 | XMS_ITS | Encounter Summary ---
Author Organization [employer] ([place], [place], [place], [place]) Address [address] [place] [address] Care Team Providers Care Conduit Cleaner Name Role Phone Unavailable Primary Care Provider Unavailabl e Encounter Details Date Type Department Care Team (Late st Contact Info) Description 10/31/2020 Transcribed Document [facility] [place] Medicine [address] [place] [address] ProviderFarhan MD [address] [id number] Social History Tobacco Use Types Packs/Day Years [...] - Historical ProviderMD - 10/31/2020 2:50 PM THREAD SPINNER Initial Discharge Planning Entered On: 10/31/2020 14:51 EST Performed On: 10/31/2020 14:50 EST by SHAWNEE MAYORGA RN-Electronics Detail Draftsperson Initial Assessment I Previously Documented Living Environment [...] Is Guardianship Needed : No SHAWNEE MAYORGA RN-Electronics Detail Draftsperson - 10/31/2020 14:50 EST Initial Assessment II Sensory and Motor Deficits : None Current Home Treatments and Equipment : None SHAWNEE MAYORGA RN-Electronics Detail Draftsperson - 10/31/2020 14:50 EST Discharge Needs I Anticipated Discharge Date : 10/31/2020 EST Anticipated Discharge To, CM : Home with family care Current Home Treatment/Equipment : Current Home Treatment/Equipment No qualifying data available. Post Acute/Home Treatments : None Documentation Status Complete : Yes SHAWNEE MAYORGA RN-Electronics Detail Draftsperson - 10/31/2020 14:50 EST Discharge Needs II Professional Skilled Services : Professional Skilled Services No qualifying data available. Needs Assistance with Transportation : No Discharge Options Discussed with Patient : Discharge transportation, DME, Home Health SHAWNEE MAYORGA RN-Electronics Detail Draftsperson - 10/31/2020 14:50 EST documented in this encounter Plan of Treatment Not on file documented as of this encounter Visit Diagnoses Not on filedocumented in this encounter
--- OUTSIDE RECORDS SUMMARY | 2025-05-27 16:55 | XMS_ITS | Encounter Summary ---
Author Organization [employer] ([place], [place], [place], [place]) Address [address] [place] [address] Care Team Providers Care Manager Of Corporate Name Role Phone Unavailable Primary Care Provider Unavailabl e Encounter Details Date Type Department Care Team (Late st Contact Info) Description 10/31/2020 Transcribed Document [facility] Neurology - [address] [facility] [address] [place] [address] Addie Veliz Jr., MD [address] [place] [address] Social History Tobacco Use Types [...]
--- OUTSIDE RECORDS SUMMARY | 2025-05-27 16:55 | XMS_ITS | Encounter Summary ---
Author Organization [employer] ([place], [place], [place], [place]) Address [address] [place] [address] Care Team Providers Care Manager In Training Name Role Phone Unavailable Primary Care Provider Unavailabl e Encounter Details Date Type Department Care Team (Late st Contact Info) Description 10/29/2020 Transcribed Document [facility] [place] [facility] [place] [address] ProviderFarhan MD [address] [place] [address] Social History Tobacco Use Types [...] - Historical ProviderMD - 10/29/2020 3:35 PM CAM SPECIALIST Treatment Intervention, PT Entered On: 10/31/2020 9:54 [...] belt, Walker, front wheel, Other: LSO on Roann Chase PHYSICAL THERAPIST - 10/31/2020 9:49 EST [...] Chase PHYSICAL THERAPIST - 10/31/2020 9:49 EST Correction Goals Mobility/Bed Mobility LTG PT Grid Goal [...]
--- OUTSIDE RECORDS SUMMARY | 2025-05-27 16:55 | XMS_ITS | Encounter Summary ---
Author Organization [employer] ([place], [place], [place], [place]) Address [address] [place] [address] Care Team Providers Care Tool Specialist Name Role Phone Unavailable Primary Care Provider Unavailabl e Encounter Details Date Type Department Care Team (Late st Contact Info) Description 10/29/2020 Transcribed Document [facility] [place] [facility] Family Medicine [facility] [place] [address] ProviderFarhan MD [address] [place] [address] Social History Tobacco Use Types [...] - Historical ProviderMD - 10/29/2020 10:00 PM EDI ARCHITECT Pain Assessment Entered On: 10/30/2020 1:23 EST [...]
--- OUTSIDE RECORDS SUMMARY | 2025-05-27 16:55 | XMS_ITS | Encounter Summary ---
Author Organization [employer] ([place], [place], [place], [place]) Address [address] [place] [address] Care Team Providers Care Cargo Trimmer Name Role Phone Unavailable Primary Care Provider Unavailabl e Encounter Details Date Type Department Care Team (Late st Contact Info) Description 10/29/2020 Transcribed Document [facility] Family Medicine [facility] [place] [address] ProviderFarhan MD [address] [place] [address] Social History Tobacco Use Types [...] - Historical ProviderMD - 10/29/2020 7:06 AM CRYSTALLOGRAPHY TEACHER Admission History, Adult Entered On: 10/29/2020 19:47 [...] Ambulatory Legal Guardian : Unaccompanied Support Person/Patient Cementing Machine Operator : Yes Support Person/Pt Rep Name : Taylor Silvestre - Support Person/Pt Rep Contact Information : [phone] Want Family/Rep/Phys Notified of Admit : No Emergency Contact #1 : Taylorwilliam Silvestre Emergency Contact #1 ` Emergency Contact #1 Relationship : ` Emergency Contact #2 : ` Emergency Contact #2 Phone Number : ` Emergency Contact #2 Relationship : ` Primary Language : Scottish Preferred Communication Mode : Verbal Communication Barrier : None Siphon Operator Needed : No DARIUS VELIZ RN - [...] Scale Risk Level : 25-45 Medium Risk [place] Fall Interventions : Adequate lighting, Assistive devices [...] Source : Estimated Height Entry Format : [place] Height, Feet : 5 ft(Converted to: 152 cm, 60 Inch) Height, Inches : 9 Inch(Converted to: 0 ft 9 Inch, 22.86 cm) Clinical Height : 175.26 cm Weight Source : Standing scale Weight Entry Format : [place] Clinical Dosing Weight : 106.36 kg Weight, Pounds : 234 lb Body Surface Area (BSA) : 2.21 m2 Body Mass Index : 34.6 kg/m2 (HI) [place] Body Weight : 70 kg DARIUS VELIZ [...] DARIUS VELIZ RN - 10/29/2020 19:45 EST [place] Suicide Severity Rating Scale (C-SSRS) CSSRS Past [...] 10/29/2020 19:45 EST Electronically signed by Kailey [facility] Conversion Belling Machine Operator Cerner at 02/08/2023 12:12 PM CDT documented in this encounter Plan of Treatment Not on file documented as of this encounter Visit Diagnoses Not on filedocumented in this encounter
--- OUTSIDE RECORDS SUMMARY | 2025-05-27 16:55 | XMS_ITS | Encounter Summary ---
Author Organization [employer] ([place], [place], [place], [place]) Address [address] [place] [address] Care Team Providers Care Er Physician Name Role Phone Unavailable Primary Care Provider Unavailabl e Encounter Details Date Type Department Care Team (Late st Contact Info) Description 10/28/2020 Transcribed Document [facility] [place] Family Medicine [address] [place] [address] ProviderFarhan MD [address] [place] [address] Social History Tobacco Use Types [...] - Historical ProviderMD - 10/28/2020 1:52 PM HUMAN RESOURCES MANAGER MANUFACTURING UM Authorization Entered On: 10/28/2020 13:54 EST Performed On: 10/28/2020 13:52 EST by ROLF LUDWIG RN-Utilization Review Primary Insurance Authorization Authorization and Policy Numbers : Insurance 1 Health Plan: [employer] CHOICE PPO Policy Number: [id number] Authorization Number: Insurance Primary Name : [employer] Choice [id number] Auth/Referral Contact Name-Primary : Alfredo Casas Authorization [...] or availity as of yet (DERICK SHIPMAN, Confectionery Drops Machine Operator 10/28/2020 12:39) ROLF LUDWIG, RN-Utilization Review - 10/28/2020 13:52 EST Electronically signed by [facility], [facility] Conversion Law Firm Partner Cerner at 02/08/2023 12:33 PM CDT documented in this encounter Plan of Treatment Not on file documented as of this encounter Visit Diagnoses Not on filedocumented in this encounter
--- OUTSIDE RECORDS SUMMARY | 2025-05-27 16:56 | XMS_ITS | Clinical Summary ---
Author Organization [facility] Address [address] [place] [address] Care Team Providers Care Clinical Pharmacy Manager Name Role Phone Ministerio Rosas MD Unavailable [phone] Khadijah Dolan APRN Primary Care Provider [phone] Allergies Active Allergy Reactions Criticality Noted Date [...] 3 Active ergocalciferol (Vitamin D-2) 1.25 MG (75567 UT) capsule Active famotidine (Pepcid) 20 MG [...] 10 DAYS. 4 Active Continuous Blood Gluc Staffing And Scheduling Coordinator (FreeStyle Noemi 3 [employer]) device 4 Active Continuous Blood Gluc Sensor [...] Type Department Care Team Description 05/19/2025 Telephone [place] [facility] [address] [place] [address] Ministerio Rosas MD HCN Clinical Concern/Question; HCN Status Update Call #[id number] 05/05/2025 12:13 PM EDT - 05/05/2025 11:59 PM EDT Hospital Encounter [facility] Radiology [address] [place] [address] Urothelial carcinoma of bladder without invasion of [...] Office Visit [place] [facility] [address] [place] [address] Ministerio Rosas MD [address] [place] [address] Health Maintenance Due Date Last [...] 2007 Sigmoidoscopy 2007 [facility]-Colorectal Cancer Screening 2007 [id number] Vaccine (3 - Moderna risk series) 03/14/2021 [...] this topic Medical Devices Implanted Type Area Internet Marketing Strategist Device Identifier Shelf Expiration Date Model / [...] Urine Color Yellow 05/05/2025 2:55 PM EDT [facility] [place] UROLOGY POCT Urine Clarity Clear 05/05/2025 2:55 PM EDT [facility] [place] UROLOGY POCT Urine Glucose Negative Negative mg/dL 05/05/2025 2:55 PM EDT [facility] [place] UROLOGY POCT Urine Bilirubin Negative Negative mg/dL 05/05/2025 2:55 PM EDT [facility] [place] UROLOGY POCT Urine Ketones Negative Negative mg/dL 05/05/2025 2:55 PM EDT [facility] [place] 2[place] UROLOGY POCT Urine Specific [place] 1.010 1.005 - 1.030 05/05/2025 2:55 PM EDT [facility] [place] UROLOGY POCT Urine Blood Trace(A) Negative 05/05/2025 2:55 PM EDT [facility] [place] 2[place] UROLOGY POCT pH, Urine 5.5 5.0 - 8.0 05/05/2025 2:55 PM EDT [facility] [place] 2[place] UROLOGY POCT Protein, Urine Negative Negative mg/dL 05/05/2025 2:55 PM EDT [facility] POCT Urobilinogen, Urine 0.2 0.2, 1.0 EU/dL 05/05/2025 2:55 PM EDT [facility] [place] 2[place] UROLOGY POCT Nitrite, Urine Negative Negative 05/05/2025 2:55 PM EDT [facility] [place] 2[place] UROLOGY POCT Urine Leukocyte Esterase Negative Negative 05/05/2025 2:55 PM EDT [facility] [place] 2[place] UROLOGY Urine 05/05/2025 2:53 PM EDT 05/05/2025 2:55 PM EDT us Ministerio Rosas MD LAB POINT OF CARE TE ST DOCKED DEVICE UNSOLICITED RESULTS Final Result Performing Organization Address City/State/[facility] Phone Number [facility] [place]NOTE 2[place] UROLOGY [address] [place], [place] * CT Urogram (05/05/2025 1:23 PM [...] following split bolus administration of IV contrast, [id number], 150 mL. Reformatted images in the coronal [...] and Body Wall: Surgical changes compatible with L3-C3eqwqhnpzf fusion, with severe degenerative changes at the [...] 05/05/2025 12:31 PM EDT [facility] [place] Stitcher ID Aundrea Chung 05/05/2025 12:31 PM EDT [facility] Device ID [id number] 05/05/2025 12:31 PM EDT [facility] Comment 05/05/2025 12:31 PM EDT [facility] Comment:Testing performed on i-STAT at the point of care. Reported eGFRcr in mL/min/1.73m2 is based the CKD-EPI 2020 equation that does not use a race coefficient. 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 Yes Care Teams Clinical Pharmacy Manager Relationship Specialty Start Date End Date Khadijah Dolan APRN [address] [place] [address] PCP - General 05/04/25 Ministerio Rosas MD [id number] [place] [address] Surgeon Urology 09/23/24
--- OUTSIDE RECORDS SUMMARY | 2025-05-27 16:56 | XMS_ITS | Encounter Summary ---
Author Organization [employer] ([place], [place], [place], [place]) Address [address] [place] [address] Care Team Providers Care Marriage Counselor Name Role Phone Unavailable Primary Care Provider Unavailabl e Encounter Details Date Type Department Care Team (Late st Contact Info) Description 10/29/2020 Transcribed Document [facility] [place] [place] Family Medicine [address] [place] [address] ProviderFarhan MD [address] [place], [place] [id number] Social History Tobacco Use Types Packs/Day Years [...] - Historical ProviderMD - 10/29/2020 12:20 PM BANKING MANAGER Meds to Bed Enrollment Entered On: 10/29/2020 12:21 EST Performed On: 10/29/2020 12:20 EST by Matty Hoover, DEVELOPER SUPPORT ENGINEER LEAD Meds to Bed Enrollment Patient Enrollment Decision: : Yes/enroll in meds to bed program Matty Hoover DEVELOPER SUPPORT ENGINEER LEAD - 10/29/2020 12:21 EST Electronically signed by Louis Bonner Conversion Electronic News Gathering Camera Person Mario at 02/08/2023 12:46 PM CDT documented in this encounter Plan of Treatment Not on file documented as of this encounter Visit Diagnoses Not on filedocumented in this encounter
--- OUTSIDE RECORDS SUMMARY | 2025-05-27 16:56 | XMS_ITS | Encounter Summary ---
Author Organization [facility] ([place], [place], [place], [place]) Address [address] [place] [address] Care Team Providers Care Corporate Strategy Associate Name Role Phone Unavailable Primary Care Provider Unavailbrianna e Encounter Details Date Type Department Care Team (Late st Contact Info) Description 10/31/2020 Transcribed Document [facility] [place] Family Medicine [facility] [place] [address] ProviderFarhan MD [address] [place] [address] Social History Tobacco Use Types [...] - Historical ProviderMD - 10/31/2020 2:00 AM MODELER Pain Assessment Entered On: 10/31/2020 6:55 EST [...]
--- OUTSIDE RECORDS SUMMARY | 2025-05-27 16:56 | XMS_ITS | Encounter Summary ---
Author Organization [employer] ([place], [place], [place], [place]) Address [address] [place] [address] Care Team Providers Care Senior Cognos Developer Name Role Phone Unavailable Primary Care Provider Unavailabl e Encounter Details Date Type Department Care Team (Late st Contact Info) Description 10/29/2020 Transcribed Document [facility] [place] Family Medicine [facility] [place] [address] ProviderFarhan MD [address] [place] [address] Social History Tobacco Use Types [...] - Historical ProviderMD - 10/29/2020 10:34 AM RETAIL STOCKER Evaluation, Occupational Therapy Entered On: 10/29/2020 15:00 [...] CONNOR WALTON OTR/Desiree - 10/29/2020 14:54 EST Snf Goals, OT Bathing LTG Grid Goal #1 [...] 10/29/2020 14:54 EST Electronically signed by Interface, [facility] Conversion Slasher Hand Cerner at 02/08/2023 12:33 PM CDT documented in this encounter Plan of Treatment Not on file documented as of this encounter Visit Diagnoses Not on filedocumented in this encounter
--- OUTSIDE RECORDS SUMMARY | 2025-05-27 16:56 | XMS_ITS | Encounter Summary ---
Author Organization [facility] Address [address] [place] [address] Care Team Providers Care Pastry Baker Name Role Phone Nadja Lara MD Primary Care Provider [phone] Ministeiro Rosas MD Unavailable [phone] Khadijah Dolan APRN Primary Care Provider [phone] Encounter Details Date Type Department Care Team (Late st Contact Info) Description 05/02/2023 Lab Requisition [facility] [address] [place] [address] Zulay Garcia PA [address] [phone] Right testicular pain Social History Tobacco Use [...] Description 06/23/2025 8:00 AM EDT Office Visit [place] [facility] Urology [address] [place] [address] Ministerio Rosas MD [address] [address] documented as of this encounter Procedures Procedure Name Priority Date/Time Associated Diagnosis Comments SURGICAL PATHOLOGY CONSULT Routine 05/02/2023 2:18 PM EDT Right testicular pain documented in this encounter Results * Surgical Pathology Consult (05/02/2023 2:18 PM EDT) Case Report Sugical Pathology Consult Case: [id number] Authorizing Provider: Zulay Garcia PA Collected: 05/02/2023 1418 Ordering Location: [facility] Lab Received: 05/02/2023 1418 Pathologist: Connor Suarez MD Specimen: Testicle, 05/03/2023 5:33 PM EDT [facility] Final Diagnosis OUTSIDE CASE: COLLECTED ON 03/13/2023. A. TESTICLE AND EPIDIDYMIS, RIGHT, EXCISION: - HYDROCELE B. 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 Received along with a corresponding pathology report from [facility] are 6 slide(s) labeled outside case: collected on 03/13/2023. 05/03/2023 5:33 PM EDT [facility] Note: A resident was involved in the service. I attest I examined the relevant preparations for the specimens and confirmed the diagnosis or interpretation. 05/03/2023 5:33 PM EDT [facility] Tissue Testis structure / Unknown 05/02/2023 2:18 PM EDT 05/02/2023 2:18 PM EDT [facility] PATHOLOGY ORDERABLES Fi nal Result [facility] [address] [place] [address] documented in this encounter Visit Diagnoses Diagnosis Right testicular pain documented in this encounter Additional Health Concerns Infection Onset Date Last Indicated 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 documented as of this encounter Care Teams Pastry Baker Relationship Specialty Start Date End Date Nadja Lara MD [address] [place] [address] PCP - General 03/04/21 05/03/25 Khadijah Dolan APRN [address] [place] [address] PCP - General 05/04/25 Ministerio Rosas MD [address] [place] [address] Surgeon Urology 09/23/24 documented as of this encounter
--- OUTSIDE RECORDS SUMMARY | 2025-05-27 16:56 | XMS_ITS | Encounter Summary ---
Author Organization [employer] ([place], [place], [place], [place]) Address [address] [place] [address] Care Team Providers Care Loss Prevention Manager Name Role Phone Unavailable Primary Care Provider Unavailabl e Encounter Details Date Type Department Care Team (Late st Contact Info) Description 10/31/[address] [facility] [place] Family Medicine [address] [place] [address] ProviderFarhan MD [address] [place], [place] [id number] Social History Tobacco Use Types Packs/Day Years [...] - Historical ProviderMD - 10/31/2020 2:36 PM DROP WIRE ALIGNER Stroke/Warfarin Instructions Entered On: 10/31/2020 14:36 EST [...]
--- OUTSIDE RECORDS SUMMARY | 2025-05-27 16:56 | XMS_ITS | Encounter Summary ---
Author Organization [employer] ([place], [place], [place], [place]) Address [address] [place] [address] Care Team Providers Care Personal Counselor Name Role Phone Unavailable Primary Care Provider Unavailabl e Encounter Details Date Type Department Care Team (Late st Contact Info) Description 10/30/2020 Transcribed Document [facility] Radiology [address] [place] [address] Mary Beth Orr MD [address] [address] Social History Tobacco Use Types [...] is a 60 yo male admitted to [facility] per Dr. Green for an L3-5 [...] 100 mg intravenous injection 1 Infusion, IntraVENous, [id number] Jardiance 25 mg oral tablet 25 mg [...]
--- OUTSIDE RECORDS SUMMARY | 2025-05-27 16:56 | XMS_ITS | Encounter Summary ---
Author Organization [employer] ([place], [place], [place], [place]) Address [address] [place] [address] Care Team Providers Care Engine Lathe Operator Name Role Phone Unavailable Primary Care Provider Unavailabl e Encounter Details Date Type Department Care Team (Late st Contact Info) Description 10/30/2020 Transcribed Document [facility] [place] [facility] [place] [address] ProviderFarhan MD [address] [place] [address] Social History Tobacco Use Types [...] - Historical ProviderMD - 10/30/2020 10:50 AM ADMINISTRATION CLERK UM Authorization Entered On: 10/30/2020 10:51 EST Performed On: 10/30/2020 10:50 EST by Ca Aamya Rn-Utilization Review Primary Insurance Authorization Authorization and Policy Numbers : Insurance 1 Health Plan: [employer] PPO Policy Number: [id number] Authorization Number: Insurance Primary Name : [employer] [id number] Authorization Status-Primary : Pending Auth/Referral Contact Name-Primary : Alfredo Casas Reference Number-Primary : [id number] Authorization Number-Primary : Pending Authorized Service Begin [...] or availity as of yet (DERICK SHIPMAN, Test And Balance Engineer 10/28/2020 12:39) Ca Amaya, Rn-Utilization Review - 10/30/2020 10:50 EST Electronically signed by Kailey, [facility] Conversion Heddler Tier Cerner at 02/08/2023 12:12 PM CDT documented in this encounter Plan of Treatment Not on file documented as of this encounter Visit Diagnoses Not on filedocumented in this encounter
--- OUTSIDE RECORDS SUMMARY | 2025-05-27 16:56 | XMS_ITS | Patient Health Record ---
Author Organization [facility] Address [address] [place] [address] Care Team Providers Care Central Office Operator Name Role Phone Khadijah Hanna APRN, Mem Primary Care Provider Unavailable Roger Keen II Unavailable Kinta -Visitor Services Assistant David DUKE Unavailable Unavailable Allergies Allergen (clinical drug ingredient) Drug/Non Drug Allergy documented on EMR Reaction Allergy Type Onset Date Status penicillin dizziness Drug Allergy Active etanercept stomach upset Drug Allergy Ac tive Results Component Value Reference Range Notes Urine Test ANALYZER Reviewed date:06/19/2024 09:10:47 AM Interpretation:+HYD+OPI Performing Lab: Notes/Report: +HYD+OPI Heroin Metabolite (6AM) NEG Amphetamine (AMP) NEG Benzodiazepine (FIDELIA) NEG Buprenorphine NEG Cocaine (YOGESH) NEG Hydrocodone (HYD) POS Methadone (MTD) NEG Opiate (OPI) POS Oxycodone (OXY) NEG Reason For Referral No Information Medications Medication SIG (Take, Route, Frequency, Duration) [...] a day; Duration: 30 day(s) 02/11/2024 Active Acetaminophen-Hydroc odone Bitartrate 325 mg-7.5 [...] a day; Duration: 30 day(s) 03/16/2022 Active venlafaxine 150 mg 1 cap(s) orally once a day; Duration: 30 day(s) 03/16/2022 Active Problems Problem Type SNOMED Code ICD Code Onset Dates Problem Status W/U Status Risk Notes Problem Rheumatoid arthritis (67386787) Rheumatoid arthritis, unspecified (M06.9) Active confirmed Problem Osteoarthritis (616919883) Unspecified osteoarthritis, unspecified site (M19.90) Active confirmed Problem Solitary sacroiliitis (059128572) Sacroiliitis, not elsewhere classified (M46.1) Active confirmed Problem Lumbosacral spondylosis without myelopathy (02124618) Spondylosis without myelopathy or radiculopathy, lumbar region (M47.816) Active confirmed Problem Lumbar radiculopathy (090127381) Radiculopathy, lumbar region (M54.16) Active confirmed Problem Enthesopathy of hip region (86819888) Trochanteric bursitis, unspecified hip (M70.60) Active confirmed Problem Long-term current use of drug therapy (410232520) Other long chain quiller tender (current) drug therapy (Z79.899) Active confirmed Vital Signs Heart Rate 79 /min 06/19/2024 Blood pressure diastolic 74 mm Hg 06/19/2024 Height 68 in 06/19/2024 Blood pressure systolic 132 mm Hg 06/19/2024 Weight 240 lbs 06/19/2024 BMI 36.49 kg/m2 06/19/2024 Encounters Encounter Location Date Provider Diagnosis [facility] [address] [place] [address] 06/19/2024 Roger Keen Other fci (current) drug therapy Z79.899 ; Unspecified osteoarthritis, unspecified site M19.90 ; Rheumatoid arthritis, unspecified M06.9 ; Spondylosis without myelopathy or radiculopathy, lumbar region M47.816 ; Radiculopathy, lumbar region M54.16 ; Sacroiliitis, not elsewhere classified M46.1 and Trochanteric bursitis, unspecified hip M70.60 [facility] [address] [place] [address] 06/19/2024 Roger Keen Other long chain quiller tender (current) drug therapy Z79.899 Assessments Encounter Date Diagnosis (ICD Code) Assessment Notes Treatment Notes Treatment Clinical Notes Section Notes 06/19/2024 Unspecified osteoarthritis, unspecified site (ICD-10 - M19.90) 06/19/24 Noe presents for follow up. He has been diagnosed with rheumatoid arthritis and has been on many immunomodulators , currently on an infusion every 4 weeks. In addition he had major back surgeries at the [facility] with Dr. Waylon Green, performed in 2020 which was a lumbar fusion (L3-S1). He is going to try and pursue further surgery once his cancer stabilizes. Patient reports no changes in the character or intensity of his pain. He reports that he has not had a treatment for his bladder cancer approximately 4 weeks ago. Taking Columbia 7.5/325 mg 3-4 times per day with relief. Denies side effects. Continues Lyrica with PCP. Declines injection therapy. Abiodun and UDS reviewed in room. Follow up in 2 months. 06/19/2024 Other fci (current) drug therapy (ICD-10 - Z79.899) 06/19/24 1. Refill Columbia 7.5/325mg TID-QID 2. Continue Lyrica 225mg BID [...] he had major back surgeries at the [facility] with Dr. Waylon Green, performed in 2020 which was a lumbar fusion (L3-S1). He is going to try and pursue further surgery once his cancer stabilizes. Patient reports no changes in the character or intensity of his pain. He reports that he has not had a treatment for his bladder cancer approximately 4 weeks ago. Taking Columbia 7.5/325 mg 3-4 times per day with relief. Denies side effects. Continues Lyrica with PCP. Declines injection therapy. Abiodun and ROSEMARIE reviewed in room. Follow up in 2 months. 06/19/2024 Other long chain quiller tender (current) drug therapy (ICD-10 - Z79.899) 06/19/2024 Rheumatoid arthritis, unspecified (ICD-10 - M06.9) 06/19/24 Noe presents for follow up. He has been diagnosed with rheumatoid arthritis and has been on many immunomodulators , currently on an infusion every 4 weeks. In addition he had major back surgeries at the [facility] with Dr. Waylon Green, performed in 2020 which was a lumbar fusion (L3-S1). He is going to try and pursue further surgery once his cancer stabilizes. Patient reports no changes in the character or intensity of his pain. He reports that he has not had a treatment for his bladder cancer approximately 4 weeks ago. Taking Columbia 7.5/325 mg 3-4 times per day with relief. Denies side effects. Continues Lyrica with PCP. Declines injection therapy. Abiodun and MELLS reviewed in room. Follow up in 2 months. 06/19/2024 Spondylosis without myelopathy or radiculopathy, lumbar region (ICD-10 - M47.816) 06/19/24 Noe presents for follow up. He has been diagnosed with rheumatoid arthritis and has been on many immunomodulators , currently on an infusion every 4 weeks. In addition he had major back surgeries at the [facility] with Dr. Waylon Green, performed in 2020 which was a lumbar fusion (L3-S1). He is going to try and pursue further surgery once his cancer stabilizes. Patient reports no changes in the character or intensity of his pain. He reports that he has not had a treatment for his bladder cancer approximately 4 weeks ago. Taking Columbia 7.5/325 mg 3-4 times per day with relief. Denies side effects. Continues Lyrica with PCP. Declines injection therapy. Abiodun and MELLS reviewed in room. Follow up in 2 months. 06/19/2024 Radiculopathy, lumbar region (ICD-10 - M54.16) 06/19/24 Noe presents for follow up. He has been diagnosed with rheumatoid arthritis and has been on many immunomodulators , currently on an infusion every 4 weeks. In addition he had major back surgeries at the [facility] with Dr. Waylon Green, performed in 2020 which was a lumbar fusion (L3-S1). He is going to try and pursue further surgery once his cancer stabilizes. Patient reports no changes in the character or intensity of his pain. He reports that he has not had a treatment for his bladder cancer approximately 4 weeks ago. Taking Columbia 7.5/325 mg 3-4 times per day with relief. Denies side effects. Continues Lyrica with PCP. Declines injection therapy. Abiodun and UDS reviewed in room. Follow up in 2 months. 06/19/2024 Sacroiliitis, not elsewhere classified (ICD-10 - M46.1) 06/19/24 Noe presents for follow up. He has been diagnosed with rheumatoid arthritis and has been on many immunomodulators , currently on an infusion every 4 weeks. In addition he had major back surgeries at the [facility] with Dr. Waylon Green, performed in 2020 which was a lumbar fusion (L3-S1). He is going to try and pursue further surgery once his cancer stabilizes. Patient reports no changes in the character or intensity of his pain. He reports that he has not had a treatment for his bladder cancer approximately 4 weeks ago. Taking Columbia 7.5/325 mg 3-4 times per day with relief. Denies side effects. Continues Lyrica with PCP. Declines injection therapy. Abiodun and UDS reviewed in room. Follow up in 2 months. 06/19/2024 Trochanteric bursitis, unspecified hip (ICD-10 - M70.60) 06/19/24 Noe presents for follow up. He has been diagnosed with rheumatoid arthritis and has been on many immunomodulators , currently on an infusion every 4 weeks. In addition he had major back surgeries at the [facility] with Dr. Waylon Green, performed in 2020 which was a lumbar fusion (L3-S1). He is going to try and pursue further surgery once his cancer stabilizes. Patient reports no changes in the character or intensity of his pain. He reports that he has not had a treatment for his bladder cancer approximately 4 weeks ago. Taking Columbia 7.5/325 mg 3-4 times per day with relief. Denies side effects. Continues Lyrica with PCP. Declines injection therapy. Abiodun and ROSEMARIE reviewed in room. Follow up in 2 months. 08/14/2024 06/19/24 Noe presents for follow up. He has been diagnosed with rheumatoid arthritis and has been on many immunomodulators , currently on an infusion every 4 weeks. In addition he had major back surgeries at the [facility] with Dr. Waylon Green, performed in 2020 which was a lumbar fusion (L3-S1). He is going to try and pursue further surgery once his cancer stabilizes. Patient reports no changes in the character or intensity of his pain. He reports that he has not had a treatment for his bladder cancer approximately 4 weeks ago. Taking Columbia 7.5/325 mg 3-4 times per day with relief. Denies side effects. Continues Lyrica with PCP. Declines injection therapy. Abiodun and ROSEMARIE reviewed in room. Follow up in 2 months. Plan Of Treatment No Information Insurance Providers Payer Name Payer Address Payer Phone Subscriber Number Group Number Insured Name Patient Relationship to Insured Coverage Start Date Coverage End Date [employer] HMO [id number] [address] [address] [place] [address] [id number] Noe Silvestre Self - patient is the insured 9 Medical (General) History Medical History History ICD Code rheumatoid arthritis diagnosed in manage d by unknown osteoarthritis diagnosed in , managed by unknown carpal tunnel diagnosed in managed by un known diabetes diagnosed in managed by unknown GERD diagnosed in managed by unknown high cholesterol diagnosed, managed by u nknown HTN diagnosed in managed by unknown sleep apnea diagnosed in managed by unkn own thyroid disease diagnosed in managed by unknown bladder cancer diagnosed 2022, managed b y Oncology Surgical History Surgery Date(Month/Year) appendectomy/ [facility] /unknow n 09/1997 carpal tunnel release [facility] /unknown 1990s right index finger/ [facility] unk nown right elbow/ [facility] /unknown unknown kidney/ [facility] (OP) 2016 lumbar spine fusion/ [facility]/ Dr. Green 3 day stay 03/2014, shoulder/ Bicep/ [facility]. Wu[facility] 01/2016 [facility] 10/2022 Lumbar spine [place] 3 days stay 20 21 Hospitalization History Reason Date(Month/Year)
--- OUTSIDE RECORDS SUMMARY | 2025-05-27 16:56 | XMS_ITS ---
Author Organization [facility] Address [address] [place] [address] Care Team Providers Care Medical Aide Name Role Phone Ministerio Rosas MD Unavailable [phone] Khadijah Dolan APRN Primary Care Provider [phone] Active Problems Problem Noted Date Diagnosed Date [...]
--- OUTSIDE RECORDS SUMMARY | 2025-05-27 16:56 | XMS_ITS | Encounter Summary ---
Author Organization [employer] ([place], [place], [place], [place]) Address [address] [place] [address] Care Team Providers Care Agriculture Science Teacher Name Role Phone Unavailable Primary Care Provider Unavailabl e Encounter Details Date Type Department Care Team (Late st Contact Info) Description 11/02/2020 Transcribed Document [facility] [place] [address] [place] [address] ProviderFarhan MD [address] [id number] Social History Tobacco Use Types Packs/Day Years [...] - Historical ProviderMD - 11/02/2020 6:38 AM SUPERVISOR RECORD PRESS UM Authorization Entered On: 11/02/2020 6:38 EST Performed On: 11/02/2020 6:38 EST by Diana Garcia, Entry Level Marketing Representative Primary Insurance Authorization Authorization and Policy Numbers : Insurance 1 Health Plan: [employer] CHOICE PPO Policy Number: [id number] Authorization Number: Insurance Primary Name : [employer] Choice [id number] Authorization Status-Primary : Notification only Auth/Referral Contact Name-Primary : Alfredo Casas Reference Number-Primary : [id number] Authorization Number-Primary : [id number] Number of Days Authorized-Primary : 5 Day(s) Authorized Service Begin Date-Primary : 10/29/2020 EST Authorized Service End Date-Primary : 11/03/2020 EST Authorization Comments-Primary : Authorized per email from Alfredo Muller RN. Historical Authorization Comments-Primary : Comment 1: inpt admission approved by [employer] choice per Availity. (TAQUERIA AGRAWAL Mkt Knife Finisher-Utilization Mgt 11/01/2020 15:33) Comment 2: per availity auth pended (Ca Amaya, Rn-Utilization Review 10/30/2020 10:50) Comment 3: call to [facility]/dr slater office to obtain preauth #. She states no auth # yet. She will call [employer]urnace to check on it and call me back (ROLF LUDWIG, RN-Utilization Review 10/28/2020 13:52) Comment 4: Pt is david for INPT Lumbar Fusion Posterior 3 Level on Sunday10-29-20 [employer] Choice: No auth notes in [facility] or availity as of yet (DERICK SHIPMAN, Advertising Solicitor 10/28/2020 12:39) Diana Garcia, Entry Level Marketing Representative - 11/02/2020 6:38 EST documented in this encounter Plan of Treatment Not on file documented as of this encounter Visit Diagnoses Not on filedocumented in this encounter
--- OUTSIDE RECORDS SUMMARY | 2025-05-27 16:56 | XMS_ITS | Encounter Summary ---
Author Organization [employer] ([place], [place], [place], [place]) Address [address] [place] [address] Care Team Providers Care Technical Support Engineer Name Role Phone Unavailable Primary Care Provider Unavailabl e Encounter Details Date Type Department Care Team (Late st Contact Info) Description 11/03/2020 Transcribed Document [facility] [place] [facility] [place] [address] ProviderFarhan MD [address] [place] [address] Social History Tobacco Use Types [...] - Historical ProviderMD - 11/03/2020 10:02 AM CLOCKMAKER Patient: FRANSISCO CRAVEN Age: 60 Years Sex: Male : 1960 Admit Date 10/29/2020 12:20 Discharge Date 10/31/2020 15:52 Primary Care Provider MANJEET HURLEY, [facility] Discharge Diagnosis Lumbar stenosis 10/31/2020 M48.061 ICD-10-CM [...] 100 mg intravenous injection 1 Infusion, IntraVENous, M7Qghyz Jardiance 25 mg oral tablet 25 mg = 1 Tab, Oral, QAM levothyroxine 200 mcg, Oral, Daily lisinopril 40 mg, Oral, Daily loratadine 10 mg oral tablet 10 mg = 1 Tab, Oral, Daily Lyrica 225 mg oral capsule 225 mg = 1 Cap, Oral, BID metFORMIN 1,000 mg, Oral, BID [place] 10 mg-325 mg oral tablet 1 Tab, [...]
--- OUTSIDE RECORDS SUMMARY | 2025-05-27 16:56 | XMS_ITS | Encounter Summary ---
Author Organization [employer] ([place], [place], [place], [place]) Address [address] [place] [address] Care Team Providers Care Heater Engineer Helper Name Role Phone Unavailable Primary Care Provider Unavailabl e Encounter Details Date Type Department Care Team (Late st Contact Info) Description 10/31/2020 Transcribed Document [facility] [place] [address] [place] [address] ProviderFarhan MD [address] [place] [address] Social History Tobacco Use Types [...] - Farhan ProviderMD - 10/31/2020 2:40 PM MANAGER DEVELOPMENT [facility] [place] [address] FRANSISCO CRAVEN :1960 Visit Time:10/29/2020 Your [...] When Within 2 weeks Nirali hylton Where: [address] [place] [address] [place] [id number] [employer] (1) Medications What How Much When Instructions [...] these instructions at home: Medicines ??? Take dblw-srm-mrgxxty and prescription medicines only as told by [...] cannot use soap and water, use hand hardwood floor installer. ? Change your bandage as told by [...] your pee (urine) pale yellow. ? Take kcxn-isy-nvzjsgn or prescription medicines. ? Eat foods that [...] 02/01/2012 Document Revised: 01/29/2020 Document Reviewed: 01/22/2018 [employer] Patient Education ?? 2020 [employer]. acetaminophen and hydrocodone (a SEET a MIN oh fen and michael droe KOE done) Hycet, Lorcet, [place], Verdrocet, Vicodin, Xodol, Zamicet What is the [...] may report side effects to FDA at 3-187-MVZ-1355. What other drugs will affect acetaminophen and [...] affect acetaminophen and hydrocodone, including prescription and nadv-qif-djmqqzd medicines, vitamins, and herbal products. Not all [...] to ensure that the information provided by [employer]. ('[employer]') is accurate, up-to-date, and complete, but no guarantee is made to that effect. Drug information contained herein may be time sensitive. [employer] information has been compiled for use by healthcare practitioners and consumers in the [place] and therefore [employer] does not warrant that uses outside of the [place] are appropriate, unless specifically indicated otherwise. CXs drug information does not endorse drugs, diagnose patients or recommend therapy. [employer]s drug information is an informational resource designed [...] effective or appropriate for any given patient. [facility] does not assume any responsibility for any aspect of healthcare administered with the aid of information [facility] provides. The information contained herein is not intended to cover all possible uses, directions, precautions, warnings, drug interactions, allergic reactions, or adverse effects. If you have questions about the drugs you are taking, check with your doctor, nurse or pharmacist. Copyright 4887-8211 [facility] CenterNetshow.meLooklet. Version: 16.01. Revision Date: 11/12/2019. Emergency Awareness [...] Assistance with quitting is available by contacting 9-053-PCZX-NOW. This is a free resource providing counseling, [...] range between ( 0.0 and 7.0 ) [place] #: 1.07 K/uL -- Normal range between ( 0.16 and 1.00 ) [place] #: 0.03 x10(3)/uL -- Normal range between ( 0.00 and 0.80 ) [place] %: 7.3 % -- Normal range between [...] ) Urine Bilirubin Dipstick: Negative Urine Specific [place]: *1.028 -- Normal range between ( 1.005 [...] was given the opportunity to ask questions. Patient/Security Screener Name: Patient/Security Screener Signature: Relationship to Patient: Clinician/Hospital Security Screener Signature: Date: documented in this encounter Plan of Treatment Not on file documented as of this encounter Visit Diagnoses Not on filedocumented in this encounter
--- OUTSIDE RECORDS SUMMARY | 2025-05-27 16:56 | XMS_ITS | Encounter Summary ---
Author Organization [employer] ([place], [place], [place], [place]) Address [address] [place] [address] Care Team Providers Care Crisis Clinician Name Role Phone Unavailable Primary Care Provider Unavailabl e Encounter Details Date Type Department Care Team (Late st Contact Info) Description 10/30/2020 Transcribed Document [facility] [place] [address] [place] [address] ProviderFarhan MD [address] [place] [address] Social History Tobacco Use Types [...] - Historical ProviderMD - 10/30/2020 10:45 AM MUD TANK OPERATOR UM Authorization Entered On: 10/30/2020 10:45 EST Performed On: 10/30/2020 10:45 EST by Ca Amaya Rn-Utilization Review Primary Insurance Authorization Authorization and Policy Numbers : Insurance 1 Health Plan: [employer] CHOICE PPO Policy Number: [id number] Authorization Number: Insurance Primary Name : [employer] Choice [id number] Auth/Referral Contact Name-Primary : Alfredo Casas Authorization [...] or availity as of yet (DERICK SHIPMAN, Public Works Director 10/28/2020 12:39) Ca Amaya, Rn-Utilization Review - 10/30/2020 10:45 EST Electronically signed by [facility], [facility] Conversion Nursing Services Manager Cerner at 02/08/2023 12:31 PM CDT documented in this encounter Plan of Treatment Not on file documented as of this encounter Visit Diagnoses Not on filedocumented in this encounter
--- OUTSIDE RECORDS SUMMARY | 2025-05-27 16:56 | XMS_ITS | Encounter Summary ---
Author Organization [employer] ([place], [place], [place], [place]) Address [address] [place] [address] Care Team Providers Care Apparel Sales Leader Name Role Phone Unavailable Primary Care Provider Unavailabl e Encounter Details Date Type Department Care Team (Late st Contact Info) Description 11/04/2020 Transcribed Document [facility] [place] [facility] [place] [address] ProviderFarhan MD [address] [place] [address] Social History Tobacco Use Types [...] - Farhan ProviderMD - 11/04/2020 6:06 PM FOREIGN COLLECTION CLERK Patient Education Materials Follows: Spinal Fusion, Adult, Care After This sheet gives you information about how to care for yourself after your procedure. Your doctor may also give you more specific instructions. If you have problems or questions, contact your doctor. Follow these instructions at home: Medicines ??? Take yaat-fsd-zwmxuap and prescription medicines only as told by [...] cannot use soap and water, use hand tannery worker. ? Change your bandage as told by [...] your pee (urine) pale yellow. ? Take qmfy-ayq-ivzhslf or prescription medicines. ? Eat foods that [...] 02/01/2012 Document Revised: 01/29/2020 Document Reviewed: 01/22/2018 [employer] Patient Education ? 2019 [employer] Inc[employer] documented in this encounter Plan of Treatment Not on file documented as of this encounter Visit Diagnoses Not on filedocumented in this encounter
--- OUTSIDE RECORDS SUMMARY | 2025-05-27 16:56 | XMS_ITS | Encounter Summary ---
Author Organization [employer] ([place], [place], [place], [place]) Address [address] [place] [address] Care Team Providers Care Robotics Application Engineer Name Role Phone Unavailable Primary Care Provider Unavailabl e Encounter Details Date Type Department Care Team (Late st Contact Info) Description 10/30/2020 Transcribed Document [facility] [place] [address] [place] [address] ProviderFarhan MD [address] [place], [place] [phone] Social History Tobacco Use Types Packs/Day Years [...] - Historical ProviderMD - 10/30/2020 2:00 AM ACCESS CONTROL SPECIALIST [employer] Intelligence Support Details Entered On: 10/30/2020 1:24 EST Performed [...] 10/30/2020 1:24 EST Electronically signed by Ka[facility] Conversion Electrical Maintenance Engineer Cerner at 02/08/2023 12:39 PM CDT documented in this encounter Plan of Treatment Not on file documented as of this encounter Visit Diagnoses Not on filedocumented in this encounter
--- OUTSIDE RECORDS SUMMARY | 2025-05-27 16:56 | XMS_ITS | Encounter Summary ---
Author Organization [employer] ([place], [place], [place], [place]) Address [address] [place] [address] Care Team Providers Care Advertising Manager Name Role Phone Unavailable Primary Care Provider Unavailabl e Encounter Details Date Type Department Care Team (Late st Contact Info) Description 10/30/2020 Transcribed Document [facility] [place] [address] [place] [address] ProviderFarhan MD [address] [place] [address] Social History Tobacco Use Types [...] - Historical ProviderMD - 10/30/2020 10:50 AM UNEMPLOYMENT INSURANCE DIRECTOR UM Authorization Entered On: 10/30/2020 10:50 EST Performed On: 10/30/2020 10:50 EST by Ca Amaya Rn-Utilization Review Primary Insurance Authorization Authorization and Policy Numbers : Insurance 1 Health Plan: HUMANA CHOICE PPO Policy Number: [id number] Authorization Number: Insurance Primary Name : [employer] Choice [id number] Authorization Status-Primary : Pending Auth/Referral Contact Name-Primary : Alfredo Casas Reference Number-Primary : [id number] Authorization Number-Primary : Pending, No Notes in [...] or availity as of yet (DERICK SHIPMAN, Aircraft Load Controller 10/28/2020 12:39) Ca Amaya, Rn-Utilization Review - 10/30/2020 10:50 EST Electronically signed by Kailey [facility] Conversion Legal Contracts Specialist Cerner at 02/08/2023 12:35 PM CDT documented in this encounter Plan of Treatment Not on file documented as of this encounter Visit Diagnoses Not on filedocumented in this encounter
--- OUTSIDE RECORDS SUMMARY | 2025-05-27 16:56 | XMS_ITS | Clinical Summary ---
Author Organization [employer] ([place], [place], [place], [place]) Address [address] [place] [address] Care Team Providers Care Shade Matcher Name Role Phone Unavailable Primary Care Provider [...] Date Keyon rded Speak language other than Czech at home Not on file 10/30/2023 Want [...]
--- OUTSIDE RECORDS SUMMARY | 2025-05-27 16:56 | XMS_ITS | Encounter Summary ---
Author Organization Healthcare Address [address] [place] [address] Care Team Providers Care Associate Faculty Name Role Phone Nadja Lara MD Primary Care Provider +1- [phone] Ministerio Rosas MD Unavailable [phone] Khadijah Dolan APRN Primary Care Provider +1- [phone] Encounter Details Date Type Department Care Team (Late st Contact Info) Description 05/02/2023 Lab Requisition [facility] [address] [place] [address] Right testicular pain Social History Tobacco Use [...] Office Visit [facility] [address] [place] [address] Ministerio Rosas MD [address] [place] [address] documented as of this encounter Visit Diagnoses Diagnosis Right testicular pain documented in this encounter Additional Health Concerns Infection Onset Date Last Indicated 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
--- OUTSIDE RECORDS SUMMARY | 2025-05-27 16:56 | XMS_ITS | Encounter Summary ---
Author Organization [employer] ([place], [place], [place], [place]) Address [address] [place] [address] Care Team Providers Care Solar Energy Technician Name Role Phone Unavailable Primary Care Provider Unavailabl e Encounter Details Date Type Department Care Team (Late st Contact Info) Description 10/30/2020 Transcribed Document [facility] [place] Medicine [address] [place] [address] ProviderFarhan MD [address] [place] [address] Social History Tobacco Use Types [...] - Farhan ProviderMD - 10/30/2020 6:00 AM APPLICATION DESIGNER Pain Assessment Entered On: 10/30/2020 20:01 EST [...]
--- OUTSIDE RECORDS SUMMARY | 2025-05-27 16:56 | XMS_ITS | Encounter Summary ---
Author Organization [employer] ([place], [place], [place], [place]) Address [address] [place] [address] Care Team Providers Care Roustabout Supervisor Name Role Phone Unavailable Primary Care Provider Unavailabl e Encounter Details Date Type Department Care Team (Late st Contact Info) Description 10/30/2020 Transcribed Document [facility] Family Medicine [address] [place] [address] ProviderFarhan MD [address] [place] [address] Social History Tobacco Use Types [...] - Farhan ProviderMD - 10/30/2020 10:00 AM WESTERN FELT HAT BLOCKER Pain Assessment Entered On: 10/30/2020 20:02 EST [...]
--- OUTSIDE RECORDS SUMMARY | 2025-05-27 16:56 | XMS_ITS | Encounter Summary ---
Author Organization [employer] ([place], [place], [place], [place]) Address [address] [place] [address] Care Team Providers Care Scalping Machine Operator Name Role Phone Unavailable Primary Care Provider Unavailabl e Encounter Details Date Type Department Care Team (Late st Contact Info) Description 11/04/2020 Transcribed Document [facility] [place] [facility] [place] [address] ProviderFarhan MD [address] [place] [id number] Social History Tobacco Use Types Packs/Day Years [...] - Farhan ProviderMD - 11/04/2020 6:06 PM PRIMARY CARE NURSE PRACTITIONER [facility] Entered On: 11/04/2020 18:08 EST Performed On: 11/04/2020 18:06 EST by Armida Naidu, Data Collection Associate [facility] Provider Status : EST Other Established Provider Name : MANJEET HURLEY Patient Phone Number : [phone] Patient Insurance Type : Medicare Source of [...] at ED : Other Primary Language : Yoruba Patient Resource [facility] Comment : Patient needs follow up appointment. Called office and patient already has two appointments scheduled with Addie Veliz (2 week staple removal and 4 week post op) Follow Up Needed : Armida Youssef, Data Collection Associate - 11/04/2020 18:06 EST documented in this encounter Plan of Treatment Not on file documented as of this encounter Visit Diagnoses Not on filedocumented in this encounter
--- OUTSIDE RECORDS SUMMARY | 2025-05-27 16:56 | XMS_ITS | Patient Health Record ---
Author Organization [facility] Address [address] [place] [address] Care Team Providers Care Industrial Tractor Driver Name Role Phone [place] -Community Pharmacist David DUKE Unavailable Unavailable Allergies Allergen (clinical drug ingredient) Drug/Non Drug Allergy documented on EMR Reaction Allergy Type Onset Date Status penicillin dizziness Drug Allergy Active etanercept stomach upset Drug Allergy Ac tive Reason For Referral No Information Medications Medication SIG (Take, Route, Frequency, Duration) Notes Start Date End Date Status Jardiance 25 mg 1 tab(s) orally once a day (in the morning) 03/16/2022 Active tamsulosin 0.4 mg 1 cap(s) orally once a day; Duration: 30 day(s) 03/16/2022 Active eplerenone 25 mg 1 tab(s) orally once a day; Duration: 30 day(s) 03/16/2022 Active metFORMIN 500 mg 1 tab(s) orally 2 times a day; Duration: 30 day(s) 03/16/2022 Active famotidine 20 mg 1 tab(s) orally 2 times a day 03/16/2022 Active omeprazole 40 mg 1 cap(s) orally once a day; Duration: 30 day(s) 03/16/2022 Active atorvastatin 10 mg 1 tab(s) orally once a day; Duration: 30 day(s) 03/16/2022 Active Albuterol (Eqv-ProAir HFA) 90 mcg/inh 2 puff(s) inhaled every 6 hours 03/16/2022 Active Lyrica 225 mg 1 cap(s) orally 2 times a day 03/16/2022 Active varenicline 0.5 mg 1 tab(s) orally 2 times a day 03/16/2022 Active Acetaminophen-Hydrocod one Bitartrate 325 mg-7.5 mg 1 tab(s) orally three to four times a day; Duration: 28 days NOVEMBER 2023 RX, DO NOT FILL SOONER THAN 28 DAYS, (OK TO FILL EARLY, ONLY IF CLOSED) Active glipiZIDE 10 mg 1 tab(s) orally once a day; Duration: 30 day(s) 03/16/2022 Active Acetaminophen-Hydrocod one Bitartrate 325 mg-7.5 mg 1 tab(s) orally three to four times a day; Duration: 28 days OCTOBER 2023 RX, DO NOT FILL SOONER THAN 28 DAYS, (OK TO FILL EARLY, ONLY IF CLOSED) Active cilostazol 50 mg 1 tab(s) orally 2 times a day; Duration: 30 day(s) 03/16/2022 Active venlafaxine 150 mg 1 cap(s) orally once a day; Duration: 30 day(s) 03/16/2022 Active bisoprolol 5 mg 1 tab(s) orally once a day; Duration: 30 day(s) 03/16/2022 Active lisinopril 40 mg 1 tab(s) orally once a day; Duration: 30 day(s) 03/16/2022 Active Problems Problem Type SNOMED Code ICD Code Onset Dates Problem Status W/U Status Risk Notes Problem Rheumatoid arthritis (33071034) Rheumatoid arthritis, unspecified (M06.9) Active confirmed Problem Osteoarthritis (255567344) Unspecified osteoarthritis, unspecified site (M19.90) Active confirmed Problem Solitary sacroiliitis (181770865) Sacroiliitis, not elsewhere classified (M46.1) Active confirmed Problem Lumbosacral spondylosis without myelopathy (64128453) Spondylosis without myelopathy or radiculopathy, lumbar region (M47.816) Active confirmed Problem Lumbar radiculopathy (488745770) Radiculopathy, lumbar region (M54.16) Active confirmed Problem Enthesopathy of hip region (97879741) Trochanteric bursitis, unspecified hip (M70.60) Active confirmed Problem Long-term current use of drug therapy (968100298) Other long term care phlebotomist (current) drug therapy (Z79.899) Active confirmed Plan Of Treatment Pending Test Test Name Order Date Urine Test LCMS Definitive 11/02/2023 Insurance Providers Payer Name Payer Address Payer Phone Subscriber Number Group Number Insured Name Patient Relationship to Insured Coverage Start Date Coverage End Date [employer] Medicare HMO [id number] [address] [address] [place] [address] [id number] Noe Silvestre Self - patient is the [...] thyroid disease diagnosed in managed by unknown Surgical History Surgery Date(Month/Year) appendectomy/ [facility] /unknow n 09/1997 carpal tunnel release [facility] /unknown 1990s right index finger/ [facility] unk nown right elbow/ [facility] /unknown unknown kidney/ [facility] ([facility]) 2016 lumbar spine fusion/ [facility]/ Dr. Green 3 day stay 03/2014, shoulder/ Bicep/ Dr. Wu/ [facility] 01/2016 [facility] Lumbar spine [place] 3 days stay 20 21 Hospitalization History Reason Date(Month/Year)
--- OUTSIDE RECORDS SUMMARY | 2025-05-27 16:56 | XMS_ITS | Encounter Summary ---
Author Organization [employer] ([place], [place], [place], [place]) Address [address] [place] [address] Care Team Providers Care Motor Scooter Mechanic Name Role Phone Unavailable Primary Care Provider Unavailabl e Encounter Details Date Type Department Care Team (Late st Contact Info) Description 10/29/2020 Transcribed Document [facility] [address] [facility] [address] [place] [address] Addie Veliz Jr., MD [address] [place] [address] Social History Tobacco Use Types [...]
--- OUTSIDE RECORDS SUMMARY | 2025-05-27 16:56 | XMS_ITS | Encounter Summary ---
Author Organization [employer] ([place], [place], [place], [place]) Address [address] [place] [address] Care Team Providers Care Critical Care Physician Name Role Phone Unavailable Primary Care Provider Unavailabl e Encounter Details Date Type Department Care Team (Late st Contact Info) Description 10/31/2020 Transcribed Document [facility] [place] Counts include 234 beds at the [facility] [place] [address] ProviderFarhan MD [address] [place] [address] Social History Tobacco Use Types [...] - Historical ProviderMD - 10/31/2020 2:36 PM DRILLER OPERATOR Nursing Discharge Summary Entered On: 10/31/2020 14:37 [...] - 10/31/2020 14:36 EST Electronically signed by [facility], [facility] Conversion Fourth Hand Cerner at 02/08/2023 12:18 PM CDT documented in this encounter Plan of Treatment Not on file documented as of this encounter Visit Diagnoses Not on filedocumented in this encounter
--- OUTSIDE RECORDS SUMMARY | 2025-05-27 16:56 | XMS_ITS | Encounter Summary ---
Author Organization [employer] ([place], [place], [place], [place]) Address [address] [place] [address] Care Team Providers Care Farm Mechanic Name Role Phone Unavailable Primary Care Provider Unavailabl e Encounter Details Date Type Department Care Team (Late st Contact Info) Description 10/30/2020 Transcribed Document [facility] [place] [facility] [place] [address] ProviderFarhan MD [address] [place] [address] Social History Tobacco Use Types [...] - Historical ProviderMD - 10/30/2020 10:51 AM AIRCRAFT REFUELLER UM Authorization Entered On: 10/30/2020 10:51 EST Performed On: 10/30/2020 10:51 EST by Ca Amaya Rn-Utilization Review Primary Insurance Authorization Authorization and Policy Numbers : Insurance 1 Health Plan: HU[employer]NA CHOICE PPO Policy Number: [id number] Authorization Number: Insurance Primary Name : [employer] Choice [id number] Authorization Status-Primary : Pending Auth/Referral Contact Name-Primary : Alfredo Casas Reference Number-Primary : [id number] Authorization Number-Primary : Pending Authorized Service Begin [...] or availity as of yet (DERICK SHIPMAN, Manager Field Investigations 10/28/2020 12:39) Ca Amaya, Rn-Utilization Review - 10/30/2020 10:51 EST Electronically signed by Kailey, [facility] Conversion Transformer Coil Winder Cerner at 02/08/2023 12:23 PM CDT documented in this encounter Plan of Treatment Not on file documented as of this encounter Visit Diagnoses Not on filedocumented in this encounter
--- OUTSIDE RECORDS SUMMARY | 2025-05-27 16:56 | XMS_ITS | Encounter Summary ---
Author Organization [employer] ([place], [place], [place], [place]) Address [address] [place] [address] Care Team Providers Care College Advisor Name Role Phone Unavailable Primary Care Provider Unavailabl e Encounter Details Date Type Department Care Team (Late st Contact Info) Description 11/01/2020 Transcribed Document [facility] Family Medicine [address] [place] [address] ProviderFarhan MD [address] [place] [address] Social History Tobacco Use Types [...] - Historical ProviderMD - 11/01/2020 3:33 PM HOGSHEAD DUMPER UM Authorization Entered On: 11/01/2020 15:33 EST Performed On: 11/01/2020 15:33 EST by TAQUERIA AGRAWAL Mkt Criminal Justice Instructor-Utilization Mgt Primary Insurance Authorization Authorization and Policy Numbers : Insurance 1 Health Plan: [employer] PPO Policy Number: [id number] Authorization Number: Insurance Primary Name : [employer] [id number] Authorization Status-Primary : Admit approved Auth/Referral Contact Name-Primary : Alfredo R Reference Number-Primary : [id number] Authorization Number-Primary : [id number] Number of Days Authorized-Primary : 5 Day(s) Authorized Service Begin Date-Primary : 10/29/2020 EST Authorized Service End Date-Primary : 11/03/2020 EST Authorization Comments-Primary : inpt admission approved by [employer] choice per Availity. Historical Authorization Comments-Primary : Comment 1: per availity auth pended (aC Amaya, Rn-Utilization Review 10/30/2020 10:50) Comment 2: [...] or availity as of yet (DERICK SHIPMAN, Twist Packer 10/28/2020 12:39) TAQUERIA AGRAWAL Mkt Criminal Justice Instructor-Utilization Mgt - 11/01/2020 15:33 EST Electronically signed by Kailey [facility] Conversion Master Brewer Cerner at 02/08/2023 12:13 PM CDT documented in this encounter Plan of Treatment Not on file documented as of this encounter Visit Diagnoses Not on filedocumented in this encounter
--- OUTSIDE RECORDS SUMMARY | 2025-05-27 16:56 | XMS_ITS | Encounter Summary ---
Author Organization [employer] ([place], [place], [place], [place]) Address [address] [place] [address] Care Team Providers Care Epidemiologist Name Role Phone Unavailable Primary Care Provider Unavailbrianna e Encounter Details Date Type Department Care Team (Late st Contact Info) Description 10/31/2020 Transcribed Document [facility] [place] [facility] [place] [address] ProviderFarhan MD [address] [place] [address] Social History Tobacco Use Types [...] - Historical ProviderMD - 10/31/2020 6:00 AM PRESSED OR BLOWN GLASS WORKER Pain Assessment Entered On: 10/31/2020 6:55 EST Performed On: 10/31/2020 6:50 EST by Rebeca Espino RN Intervention Information: acetaminophen Performed by Rbeeca Espino RN on 10/31/2020 05:50:00 EST acetaminophen,650mg [...]
--- OUTSIDE RECORDS SUMMARY | 2025-05-27 16:56 | XMS_ITS | Encounter Summary ---
Author Organization [employer] ([place], [place], [place], [place]) Address [address] [place] [address] Care Team Providers Care Paraeducator Name Role Phone Unavailable Primary Care Provider Unavailabl e Encounter Details Date Type Department Care Team (Late st Contact Info) Description 10/30/2020 Transcribed Document [facility] [place] [facility] [place] [address] ProviderFarhan MD [address] [place] [address] Social History Tobacco Use Types [...] - Farhan ProviderMD - 10/30/2020 2:00 PM HVAC SERVICES PROFESSIONAL Pain Assessment Entered On: 10/30/2020 20:02 EST [...]
--- OUTSIDE RECORDS SUMMARY | 2025-05-27 16:56 | XMS_ITS | Encounter Summary ---
Author Organization [employer] ([place], [place], [place], [place]) Address [address] [place] [address] Care Team Providers Care Core Maker Helper Name Role Phone Unavailable Primary Care Provider Unavailabl e Encounter Details Date Type Department Care Team (Late st Contact Info) Description 10/31/2020 Transcribed Document [facility] [place] [facility] [place] [address] ProviderFarhan MD [address] [place], [place] [id number] Social History Tobacco Use Types Packs/Day Years [...] - Historical ProviderMD - 10/31/2020 3:22 PM WILDLIFE OFFICER Discharge Summary, PT Entered On: 10/31/2020 15:23 [...] Chase PHYSICAL THERAPIST - 10/31/2020 15:22 EST Laborer/Key Man Goals Mobility/Bed Mobility LTG PT Grid Goal [...]
--- OUTSIDE RECORDS SUMMARY | 2025-05-27 16:56 | XMS_ITS | Encounter Summary ---
Author Organization [employer] ([place], [place], [place], [place]) Address [address] [place] [address] Care Team Providers Care Resort Housekeeper Name Role Phone Unavailable Primary Care Provider Unavailabl e Encounter Details Date Type Department Care Team (Late st Contact Info) Description 10/29/2020 Transcribed Document [facility] [address] [facility] [address] [place] [address] Waylon Green Jr., MD [address] [place] [address] Social History Tobacco Use Types [...] Airo intraoperative CT scan and [facility] neuronavigation. CHEMICAL PACKAGER: Enriqueta Carrillo PA-C. ANESTHESIA: General endotracheal anesthesia. [...] These were Steinmann pins, placed with a Rosum drill under navigation. We used a pre-existing [...] stab incision was used to tunnel a 15-Divehi round epidural JESUS drain. A drain stitch [...] hardware, placement of new hardware, wound closure. /[id number] Waylon Green Jr, MD RDO/AQ / RDO / MODL /[id number] documented in this encounter Plan of Treatment Not on file documented as of this encounter Visit Diagnoses Not on filedocumented in this encounter
--- OUTSIDE RECORDS SUMMARY | 2025-05-27 16:56 | XMS_ITS | Encounter Summary ---
Author Organization Healthcare Address [address] [place] [address] Care Team Providers Care Animated Cartoons Painter Name Role Phone Nadja Lara MD Primary Care Provider +1- [phone] Ministerio Rosas MD Unavailable [phone] Khadijah Dolan APRN Primary Care Provider +1- [phone] Encounter Details Date Type Department Care Team (Late st Contact Info) Description 03/05/2023 Orders Only External Location [address] [place] [address] Yared Salgado MD [address] [place] [address] Social History Tobacco Use Types Packs/Day Years [...] Description 06/23/2025 8:00 AM EDT Office Visit [facility] [address] [place] [address] Ministerio Rosas MD [address] [place] [address] documented as of this encounter Procedures Procedure [...] documented as of this encounter Care Teams Animated Cartoons Painter Relationship Specialty Start Date End Date Nadja Lara MD [address] [place] [address] PCP - General 03/04/21 05/03/25 Khadijah Dolan APRN [address] [place] [address] PCP - General 05/04/25 Ministerio Rosas MD [address] [place] [address] Surgeon Urology 09/23/24 documented as of this encounter
--- OUTSIDE RECORDS SUMMARY | 2025-05-27 16:56 | XMS_ITS | Encounter Summary ---
Author Organization [employer] ([place], [place], [place], [place]) Address [address] [place] [address] Care Team Providers Care Shutdown Planner Name Role Phone Unavailable Primary Care Provider Unavailabl e Encounter Details Date Type Department Care Team (Late st Contact Info) Description 10/30/2020 Transcribed Document [facility] [address] [facility] [address] [place] [address] Addie Veliz Jr., MD [address] [place] [address] Social History Tobacco Use Types [...] tomorrow and go home tomorrow. He requests [place] instead of Percocet when he goes home. I put a [place] prescription on his chart. I talked to his . They're both happy with the plan. documented in this encounter Plan of Treatment Not on file documented as of this encounter Visit Diagnoses Not on filedocumented in this encounter
--- OUTSIDE RECORDS SUMMARY | 2025-05-27 16:56 | XMS_ITS | Referral Summary ---
Author Organization [employer] ([place], [place], [place], [place]) Address [address] [place] [address] Care Team Providers Care It Consulting Manager Name Role Phone Unavailable Primary Care [...] Date Keyon rded Speak language other than Belarusian at home Not on file 10/30/2023 Want [...]
--- OUTSIDE RECORDS SUMMARY | 2025-05-27 16:56 | XMS_ITS | Encounter Summary ---
Author Organization [employer] ([place], [place], [place], [place]) Address [address] [place] [address] Care Team Providers Care Vp Research Name Role Phone Unavailable Primary Care Provider Unavailabl e Encounter Details Date Type Department Care Team (Late st Contact Info) Description 10/30/2020 Transcribed Document [facility] [place] [address] [place] [address] ProviderFarhan MD [address] [place] [address] Social History Tobacco Use Types [...] - Historical ProviderMD - 10/30/2020 5:00 AM PLASTERER ROUGH Chart Check - Review Order Profile Entered On: 10/30/2020 5:11 EST Performed On: 10/30/2020 5:00 EST by Sam Anton, RN Chart Check Powerplans Initiated/Discontinued as Appropriate : Yes All Active Orders Reviewed : Yes Sam Anton RN - 10/30/2020 5:11 EST Electronically signed by Kailey [facility] Conversion Gelatin Dynamite Packing Operator Mario at 02/08/2023 12:44 PM CDT documented in this encounter Plan of Treatment Not on file documented as of this encounter Visit Diagnoses Not on filedocumented in this encounter
--- OUTSIDE RECORDS SUMMARY | 2025-05-27 16:56 | XMS_ITS | Encounter Summary ---
Author Organization Healthcare Address [address] [place] [address] Care Team Providers Care Strategic Communications Manager Name Role Phone Nadja Lara MD Primary Care Provider [phone] Ministerio Rosas MD Unavailable [phone] Khadijah Dolan APRN Primary Care Provider [phone]- [phone] Encounter Details Date Type Department Care Team (Late st Contact Info) Description 05/02/2023 Lab Requisition [facility] [address] [place] [address] Zulay Garcia PA [address] [phone] Social History Tobacco Use Types Packs/Day Years [...] Description 06/23/2025 8:00 AM EDT Office Visit [facility] [address], [address] [place] [address] Ministerio Rosas MD [address] [address] documented as of this encounter Visit Diagnoses Not on filedocumented in this encounter Additional Health Concerns Infection Onset Date Last Indicated 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
== END 2025-05-27 23:59 | disposition home or self-care (01) ==
LOC: RT 16:53
PROVIDERS: PCP Nurse Practitioner Family; Visit Provider Physician Assistant
DX: I49.1 Atrial premature depolarization (principal); I47.19 Other supraventricular tachycardia; I49.3 Ventricular premature depolarization; I47.29 Other ventricular tachycardia
CPT/HCPCS: 93270

== ENCOUNTER 2025-06-08 08:47 | Outpatient (CLI) | payer MEDICARE, SELFPAY ==
--- OUTSIDE RECORDS SUMMARY | 2024-08-14 04:30 | XMS_ITS ---
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 [employer] David DUKE Unavailable Unavailable Allergies Allergen (clinical [...] Diagnosis [facility] [address] [place] [address] 08/14/2024 Roger Keen Other mcc (current) drug therapy Z79.899 ; Unspecified osteoarthritis, unspecified site M19.90 ; Rheumatoid arthritis, unspecified M06.9 ; Spondylosis without myelopathy or radiculopathy, lumbar region M47.816 ; Radiculopathy, lumbar region M54.16 ; Sacroiliitis, not elsewhere classified M46.1 and Trochanteric bursitis, unspecified hip M70.60 Assessments Encounter Date Diagnosis (ICD Code) Assessment Notes Treatment Notes Treatment Clinical Notes Section Notes 08/14/2024 Other leadite worker (current) drug therapy (ICD-10 - Z79.899) 06/19/24 1. Refill Muir 7.5/325mg TID-QID 2. Continue Lyrica 225mg BID [...] had major back surgeries at the [facility] with Dr. Waylon Green, performed in 2020 which was a lumbar fusion (L3-S1). He is going to try and pursue further surgery once his cancer stabilizes. Patient reports no changes in the character or intensity of his pain. He reports that he has not had a treatment for his bladder cancer approximately 4 weeks ago. Taking Muir 7.5/325 mg 3-4 times per day with [...] had major back surgeries at the [facility] with Dr. Waylon Green, performed in 2020 which was a lumbar fusion (L3-S1). He is going to try and pursue further surgery once his cancer stabilizes. Patient reports no changes in the character or intensity of his pain. He reports that he has not had a treatment for his bladder cancer approximately 4 weeks ago. Taking Muir 7.5/325 mg 3-4 times per day with [...] had major back surgeries at the [facility] with Dr. Waylon Green, performed in 2020 which was a lumbar fusion (L3-S1). He is going to try and pursue further surgery once his cancer stabilizes. Patient reports no changes in the character or intensity of his pain. He reports that he has not had a treatment for his bladder cancer approximately 4 weeks ago. Taking Muir 7.5/325 mg 3-4 times per day with [...] had major back surgeries at the [facility] with Dr. Waylon Green, performed in 2020 which was a lumbar fusion (L3-S1). He is going to try and pursue further surgery once his cancer stabilizes. Patient reports no changes in the character or intensity of his pain. He reports that he has not had a treatment for his bladder cancer approximately 4 weeks ago. Taking Muir 7.5/325 mg 3-4 times per day with [...] had major back surgeries at the [facility] with Dr. Waylon Green, performed in 2020 which was a lumbar fusion (L3-S1). He is going to try and pursue further surgery once his cancer stabilizes. Patient reports no changes in the character or intensity of his pain. He reports that he has not had a treatment for his bladder cancer approximately 4 weeks ago. Taking Muir 7.5/325 mg 3-4 times per day with [...] had major back surgeries at the [facility] with Dr. Waylon Green, performed in 2020 which was a lumbar fusion (L3-S1). He is going to try and pursue further surgery once his cancer stabilizes. Patient reports no changes in the character or intensity of his pain. He reports that he has not had a treatment for his bladder cancer approximately 4 weeks ago. Taking Muir 7.5/325 mg 3-4 times per day with [...] had major back surgeries at the [facility] with Dr. Waylon Green, performed in 2020 which was a lumbar fusion (L3-S1). He is going to try and pursue further surgery once his cancer stabilizes. Patient reports no changes in the character or intensity of his pain. He reports that he has not had a treatment for his bladder cancer approximately 4 weeks ago. Taking Muir 7.5/325 mg 3-4 times per day with [...] IF CLOSED) Treatment Notes Assessment Notes Other leadite worker (current) drug therapy 06/19/24 1. Refill Muir 7.5/325mg TID-QID 2. Continue Lyrica 225mg BID [...] * Noe SILVESTREDOB:1960 ( 65 yo M)Acc No.[id number]:08/14/2024 FollowUP Patient: Noe DIAZ Provider: Amrik Keen II, M.D. :1960 A ge:64 Y S ex:Male Date:08/14/2024 Address:[address] [place], [place] [id number] Pcp:Eugzoie dixon [facility] Subjective: * Chief Complaints: * 1 . Low back pain. 2. Leg pain. * HPI: T ODAYS PAIN EVALUATION: 64 year old male presents with c/o MEDICATION FOLLOW UP: T he patient is currently prescribed Muir 7.5/325 mg TID and Lyrica 225 mg [...] peripelvic cysts of both the partially visualized [id number]/22/2020 XR LUMBAR:Grade 1 anterior listhesis L3-4 , [...] Physical Therapy program completed- Helpful, completed at [facility] physical therapy . P ERTINENT SURGICAL EVALUATIONS/SPECIALIST [...] has had major back surgeries at the [facility] with Dr. Waylon Green the [...] are going to request all images from [facility] to review. I am going to schedule him for a #1 bilateral SI joint injection. If he gets any significant relief even short duration, we may consider lateral branch blocks of the SI joint at S1-3 and RFA to minimize steroid requirements for long-term relief. I will start him on Muir 7.5 mg 3-4 times per day as [...] by Oncology. * Surgical History: a ppendectomy/ [facility] 09/1997, carpal tunnel release [facility] , right index finger/ [facility] unknown, right elbow/ [facility] /unknown unknown, kidney/ [facility] ([facility]) 2016, lumbar spine fusion/ [facility]/ Dr. Green 3 day stay 03/2014,, shoulder/ Bicep/ Dr. Wu/ [facility] 01/2016, Hydroseal/ [facility] 10/2022, Lumbar spine [place] 3 days stay 2020. * Hospitalization/Major Diagno [...] * Vitals: * Examination: G eneral Examination: Nurse/Way Inspector: Rosalinda waterman(Nahomi Wheeler 06/19/2024 8:14:10 AM > [...] . Assessment: * Assessment: 1. O ther mcc (current) drug therapy - Z79.899 (Primary) 2 [...] had major back surgeries at the [facility] with Dr. Waylon Green, performed in 2020 which was a lumbar fusion (L3-S1). He is going to try and pursue further surgery once his cancer stabilizes. Patient reports no changes in the character or intensity of his pain. He reports that he has not had a treatment for his bladder cancer approximately 4 weeks ago. Taking Muir 7.5/325 mg 3-4 times per day with relief. Denies side effects. Continues Lyrica with PCP. Declines injection therapy. Vero and UDS reviewed in room. Follow up in 2 months. Plan: * Treatment: * Procedures: [facility] FR[facility] ENCOUNTER AND OVERSIGHT: Consult Performed By: Augusto raphael(OPTICAL GLASS SAWYER-PANKAJ),Lauren 06/19/2024 8:50:10 AM > . c ollaborated treatment plan with Amrik Keen M.D., supervising physician who was present in office during consultation. * Follow Up: 2 Months * * Electronic signature of Solomon Keen II, M.D. on 06/08/2025 at 07:49 AM CDT Sign off status: Pending * Provider: Amrik Keen II, M.D. Date: Generated for Al santos/Yimi/Phoenixitting on: 0 06/08/2025 07:49 AM CDT History and Physical Notes * HPI [...] has had major back surgeries at the [facility] with Dr. Waylon Green the [...] are going to request all images from [facility] to review. I am going to schedule him for a #1 bilateral SI joint injection. If he gets any significant relief even short duration, we may consider lateral branch blocks of the SI joint at S1-3 and RFA to minimize steroid requirements for long-term relief. I will start him on Muir 7.5 mg 3-4 times per day as [...] Physical Therapy program completed- Helpful, completed at [facility] physical therapy PERTINENT SURGICAL EVALUATIONS/SPECIALIST CONSULTS Prior [...] FOLLOW UP: The patient is currently prescribed Muir 7.5/325 mg TID and Lyrica 225 mg [...] +FABERS/PATRICKS FILEMON w SIJ pain., +COMPRESSION TEST FILEMNO, +DISTRACTION TEST FILEMON Nurse/Way Inspector: Dakota(CECY-Omero Pichardo 06/19/2024 8:14:10 AM > Lumbar Spine/Lower [...]
--- OUTSIDE RECORDS SUMMARY | 2025-05-05 12:13 | XMS_ITS | Encounter Summary ---
Author Organization [facility] Address [address] [place] [address] Care Team Providers Care Utility Operator Name Role Phone Ministerio Rosas MD Unavailable [phone] Khadijah Dolan APRN Primary Care Provider [phone] Reason for Referral * Imaging (Routine) - Closed Specialty Diagnoses / Procedures Referred By Loki tyler Referred To Contact Radiology Diagnoses Urothelial carcinoma of bladder without invasion of muscle Procedures CT Urogram Ministerio Rosas MD [address] [address] Phone: tel: fax: Referral ID Status Reason Start Date Expiration Date Visits Re quested Visits Authorized [id number] Closed 02/03/2025 08/05/2026 1 1 Reason for Visit * Imaging (Routine) - Closed Specialty Diagnoses / Procedures Referred By Loki tyler Referred To Contact Radiology Diagnoses Urothelial carcinoma of bladder without invasion of muscle Procedures CT Urogram Ministerio Rosas MD [address] [address] Phone: tel: fax: Referral ID Status Reason Start Date Expiration Date Visits Re quested Visits Authorized [id number] Closed 02/03/2025 08/05/2026 1 1 Encounter Details Date Type Department Care Team (Latest Contact Info) Description 05/05/2025 12:13 PM EDT - 05/05/2025 11:59 PM EDT Hospital Encounter [facility] Radiology [address] [place] [address] Urothelial carcinoma of bladder without invasion of [...] hopeless Not at all 05/05/2025 2:57 PM Jaxson Low Patient Health Questionnaire -2 Score 0 05/05/2025 2:57 PM Jaxson Low * Question Answer Date of Assessment Author Trouble falling or staying asleep, or sleeping too much Not at all 05/05/2025 2:57 PM Drew Low Feeling tired or having basim le energy Not at all 05/05/2025 2:57 PM Jaxson Low Poor appetite or overeating Not at all 05/05/2025 2: 57 PM Jaxson Low Feeling bad about yourself - or that you are a failure or have let yourself or your family down Not at all 05/05/2025 2:57 PM Jaxson Khanna Trouble concentrating on thi ngs, such as [...] FOR 10 DAYS. 01/02/2024 Continuous Blood Gluc Hydrogen Braze Furnace Operator (FreeStyle Noemi 3 [place]) device 02/01/2024 Continuous Blood Gluc Sensor (FreeStyle Noemi 3 Sensor) misc 02/01/2024 DULoxetine (Cymbalta) [address] capsule TAKE ONE (1) CAPSULE EVERY DAY BY ORAL ROUTE. 08/26/2024 ergocalciferol (Vitamin D-2) 1.25 MG (17853 UT) capsule famotidine (Pepcid) 20 MG tablet [...] Team (Late st Contact Info) Description 06/23/2025 8:40 AM EDT Appointment [facility] CT [address] [place] [address] 06/23/2025 10:00 AM EDT [facility] [address] [place] [address] Ministerio Rosas MD [address] [place] [address] Scheduled Orders Name Type Priority [...] following split bolus administration of IV contrast, [id number], 150 mL. Reformatted images in the coronal [...] and Body Wall: Surgical changes compatible with L3-D5xrbpduggl fusion, with severe degenerative changes at the [...] signing this report, I, the attending physician, lawrence I have personally reviewed the images/data for the aboveexamination(s) and agree with the final edited report. Drafted by Efren Leblanc MD on 05/05/2025 2:45 PM Final report signed by Cory Green MD on 05/05/2025 4:59 PM us Ministerio Rosas MD IMG CT PROCEDURES Final Resul t * POCT creatinine (05/05/2025 12:29 PM EDT) Pathologist [facility] Creatinine, Point of Care 1.0 0.7 - 1.2 mg/dL 05/05/2025 12:31 PM EDT [facility] POCT eGFR 85 mL/min/1. 73m*2 05/05/2025 12:31 PM EDT [facility] Thermal Technician ID Aundrea Chung 05/05/2025 12:31 PM EDT [facility] Device ID [id number] 05/05/2025 12:31 PM EDT [facility] Comment 05/05/2025 12:31 PM EDT [facility] Comment:Testing performed on i-STAT at the point of care. Reported eGFRcr in mL/min/1.73m2 is based the CKD-EPI 2020 equation that does not use a race coefficient. Blood Venous blood specimen / Unknown 05/05/2025 12:29 PM EDT 05/05/2025 12:31 PM EDT us Generic Provider Poct LAB POINT OF CARE TEST DOCKED DEVICE UNSOLICITED RESULTS Final Result [facility] [address] [id number] [facility] [address] [place] [address] documented in this encounter Visit Diagnoses Diagnosis [...] documented as of this encounter Care Teams Utility Operator Relationship Specialty Start Date End Date Khadijah Dolan APRN [address] [place] [address] PCP - General 05/04/25 Ministerio Rosas MD [address] [place] [address] Surgeon Urology 09/23/24 documented as of this encounter
--- OUTSIDE RECORDS SUMMARY | 2025-06-08 08:49 | XMS_ITS | Encounter Summary ---
Author Organization [facility] Address [address] [place] [address] Care Team Providers Care Bread Packer Name Role Phone Ministerio Rosas MD Unavailable [phone] Khadijah Dolan APRN Primary Care Provider [phone]- [phone] Encounter Details Date Type Department Care Team [...] Info) Description 06/23/2025 8:40 AM EDT Appointment [facility] [address] [place] [address] 06/23/2025 10:00 AM EDT Office Visit [facility] [address], [address] [place] [address] Ministerio Rosas MD [address] [address] documented as of this encounter [...] documented as of this encounter Care Teams Bread Packer Relationship Specialty Start Date End Date Khadijah Dolan APRN [address] [place] [id number] PCP - General 05/04/25 Ministerio Rosas MD [address] [phone] Surgeon Urology 09/23/24 documented as of this encounter
--- OUTSIDE RECORDS SUMMARY | 2025-06-08 08:49 | XMS_ITS | Clinical Summary ---
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 therapy Dysuria 32570575 (SNOMED CT) 12/19 Active 12/19 Lincoln Iqbal MD Dysuria Adverse drug reaction 269405487 (SNOMED CT) 12/19 Active 12/19 Lincoln Iqbal MD H/O: Disorder Nausea 425018496 (SNOMED CT) 12/19 Active 12/19 Lincoln Iqbal [...] involvement DM II with diabetic peripheral neuropathy 96679263 (SNOMED CT) Active Bobbi Eagle Type 2 [...] without damage to nail, initial encounter Obesity 732236941 (SNOMED CT) Inactive Bobbiarabella Eagle Obesity Diarrhea, antibiotic associated 674918746 (SNOMED CT) 11/20 Inactive 11/20 Bobbi Eagle Antibiotic-ass ociated diarrhea Diarrhea, antibiotic associated 510338089 (SNOMED CT) 11/20 Removed 11/20 Lincoln Iqbal MD Antibiotic-ass ociated diarrhea Obesity 109361320 (SNOMED CT) Removed Trish Napier RN Obesity [...] W Nicotine dependence, cigarettes, uncomplicated Tobacco abuse 55682732 (SNOMED CT) Inactive Lincoln Iqbal MD Tobacco [...] acute osteomyelitis, right hand Benign Essential Hypertension 0087950 (SNOMED CT) Active Bobbi Eagle Benign essential hypertension DM Type II E11.9 (ICD-10-CM ) Inactive Bobbi Eagle Type 2 diabetes mellitus without complications Dog bite, initial treatment encounter(s) W54.0xxA (ICD-10-CM ) Removed Bobbi Eagle Bitten by dog, initial encounter Medications Medication Instructions Start Date Stop Date Generic Name ND Provider RIFAMPIN 300 MG CAPS 2 daily RIFAMPIN [id number] Lincoln Iqbal MD ISONIAZID 300 MG TABS one daily ISONIAZID 06384617162 Lincoln Iqbal MD B-6 50 MG TABS one daily PYRIDOXINE HCL 03605773183 Lincoln Iqbal MD TRAMADOL HCL 50 MG TABS by mouth twice daily TRAMADOL HCL 68443161198 Devonte Holland CELEBREX 200 MG CAPS by mouth daily CELECOXIB 41835666797 Devonte Holland LYRICA 150 MG CAPS by mouth twice daily PREGABALIN 89598270974 Devonte Holland DIAZEPAM 5 MG TABS Take/use as needed. DIAZEPAM 55564459000 Devonte Holland MELOXICAM 15 MG TABS by mouth daily MELOXICAM 80825754073 Devonte Holland NORCO 10-325 MG ORAL TABLET HYDROCODONE-ACET AMINOPHEN 14014588562 Devonte Holland VICOPROFEN 7.5-200 MG ORAL TABLET HYDROCODONE-IBUP ROFEN 97002524678 Devonte Holland BACTRIM DS 800-160 MG TABS SULFAMETHOXAZOLE -TRIMETHOPRIM 16771955181 Devonte Holland MUPIROCIN 2 % OINT apply daily to finger MUPIROCIN 57588646274 Devonte Amalia CIPROFLOXACIN HCL 500 MG TABS 1 by mouth twice a day CIPROFLOXACIN HCL 00818433312 Devonte Holland MINOCYCLINE HCL 100 MG CAPS one pill by mouth twice daily MINOCYCLINE HCL 79725754798 Devonte Holland INVANZ 1 GM INTRAVENOUS SOLUTION RECONSTITUTED 1gm IV daily [facility] [phone](f) [phone] ERTAPENEM SODIUM 12975414037 Clementine Pablo MINOCYCLINE HCL 100 MG CAPS one pill by mouth twice daily MINOCYCLINE HCL 20233473053 Lincoln Iqbal MD CIPROFLOXACIN HCL 500 MG TABS 1 by mouth twice a day CIPROFLOXACIN HCL 35660058379 Lincoln Iqbal MD INVSALVADOR 1 GM INTRAVENOUS SOLUTION RECONSTITUTED 1gm IV daily [facility] [phone](f) [phone] ERTAPENEM SODIUM 43782956731 [facility] INVANZ 1 GM INTRAVENOUS SOLUTION RECONSTITUTED 1gm IV daily [facility] (f) [phone] ERTAPENEM SODIUM 68474289775 [facility] MINOCYCLINE HCL 100 MG CAPS 1 twice daily MINOCYCLINE HCL 52094710053 Shyanne Rangel RN CIPROFLOXACIN HCL 500 MG TABS 1 by mouth twice a day CIPROFLOXACIN HCL 56042362482 Shyanne Rangel RN CIPROFLOXACIN HCL 500 MG TABS 1 by mouth twice a day CIPROFLOXACIN HCL 08038601469 Lincoln Iqbal MD MINOCYCLINE HCL 100 MG CAPS 1 twice daily MINOCYCLINE HCL 07583424558 Lincoln Iqbal MD MUPIROCIN 2 % OINT apply daily to finger MUPIROCIN 39221096794 Lincoln Iqbal MD VITAMIN D2 50 MCG (1999 UT) TABS 1.25mg daily ERGOCALCIFEROL 53028550523 Parisa Marcial ALLEN LOW DOSE 81 MG TBEC by mouth daily ASPIRIN 47708542807 Parisa Marcial DIAZEPAM 5 MG TABS Take/use as needed. DIAZEPAM 44830138619 Parisa Marcial DICLOFENAC SODIUM 75 MG TBEC DICLOFENAC SODIUM 02898299959 Parisa Marcial LISINOPRIL 40 MG TABS by mouth daily LISINOPRIL 34499330908 Parisa Marcial LYRICA CAPS PREGABALIN CAPS 59293072545 Parisa Marcial METFORMIN HCL 500 MG TABS by mouth twice daily METFORMIN HCL 01809487097 Parisa Marcial MELOXICAM 15 MG TABS by mouth daily MELOXICAM 10345894171 Parisa Marcial VOLTAREN 1 % GEL DICLOFENAC SODIUM 55983898243 Parisa Marcial VOLTAREN 1 % GEL DICLOFENAC SODIUM 15549604048 Janet Madden VICOPROFEN 7.5-200 MG ORAL TABLET HYDROCODONE-IBUP ROFEN 64482353140 Janet Solanox NORCO 10-325 MG ORAL TABLET HYDROCODONE-ACET AMINOPHEN 01965029004 Janet Solanox METFORMIN HCL 500 MG TABS METFORMIN HCL 83331524574 Janet Griffindox MELOXICAM TABS MELOXICAM TABS 95414725090 Janet Madden LYRICA CAPS PREGABALIN CAPS 05388325269 Janet Madden LISINOPRIL 40 MG TABS LISINOPRIL 46240483538 Janet Madden LEVOTHYROXINE SODIUM TABS LEVOTHYROXINE SODIUM TABS 03391095439 Janet Madden EFFEXOR XR 75 MG [id number] VENLAFAXINE HCL 35122175253 Janet Madden DICLOFENAC SODIUM 75 MG TBEC DICLOFENAC SODIUM 03101842383 Janet Madden DIAZEPAM 5 MG TABS DIAZEPAM 50702647265 Janet Madden BACTRIM DS 800-160 MG TABS SULFAMETHOXAZOLE -TRIMETHOPRIM 04835820579 Janet Madden Medications Administered No information available. 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 Dietary management education, guidance, and counseling [...] antibiotics 20 10/12/27 CPT-oral Discontinue oral antibiotics CPT-25348 CMP [id number] CBC with Differential 2018 CPT-32385 Urine Culture & Sensitivity CPT-16748 Urinalysis with microscopic exam CPT-patrice New Oral [...] New IV antibiotic CPT-patrice New Oral Antibiotic CPT-29171 PICC Line Insertion CPT-83803 PICC Line Insertion CPT-wpc Weekly PICC Line Care CPT- stat weekly Stat Weekly Labs [id number] CBC with Differential 2015 CPT-53814 CMP CPT-03331 C- reactive protein CPT-22381 Sedimentation Rate (ESR) 201 03/31/24 13178 Hepatitis C Atb: (ICD 10 Code: Z11.59) [...]
--- OUTSIDE RECORDS SUMMARY | 2025-06-08 08:49 | XMS_ITS | Encounter Summary ---
Author Organization [employer] ([place], [place], [place], [place]) Address [address] [place] [address] Care Team Providers Care Stuffing Machine Operator Name Role Phone Unavailable Primary Care Provider Unavailabl e Encounter Details Date Type Department Care Team (Late st Contact Info) Description 10/29/2020 Transcribed Document [facility] [address] [place] [address] ProviderFarhan MD [address] [place] [address] Social History Tobacco Use Types [...] - Farhan ProviderMD - 10/29/2020 8:39 AM PROFESSOR OF BUSINESS ADMINISTRATION [facility] Main OR PACU Summary Primary Physician: ADDIE VELIZ MD-[facility] Finalized Date/Time: 10/29/20 12:13:32 Pt. Name: FRANSISCO CRAVEN/Sex: 1960 Male Med Rec #: [id number] Physician: ADDIE VELIZ MD-SN Financial #: [id number] Pt. Type: I Room/Bed: / Admit/Disch: 09/22/20 10:37:00 - Institution: [facility] Main OR PACU I Case Times Entry 1 In PACU I 10/29/20 10:38:00 Ready for PACU 10/29/20 12:00:00 Discharge Discharge from PACU 10/29/20 12:00:00 I Last Modified By: DANIELLE CLANCY RN 10/29/20 12:13:15 Finalized By: DANIELLE CLANCY, RN Document Signatures Signed By: DANIELLE CLANCY RN 10/29/20 12:13 Electronically signed by Kailey [facility] Conversion Electrician Station Assistant Cerner at 02/08/2023 12:20 PM CDT documented in this encounter Plan of Treatment Not on file documented as of this encounter Visit Diagnoses Not on filedocumented in this encounter
--- OUTSIDE RECORDS SUMMARY | 2025-06-08 08:49 | XMS_ITS | Encounter Summary ---
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 Spirital Assessment Comment/Summary Report : SPIRITUAL ASSESSMENT COMMENT/SUMMARY No qualifying data available. SADIE ALEX P - 10/29/2020 7:43 EST Interventions Emotional Support : Empathic/Engaged listening Spiritual and Yazidi : Prayer shared, Spiritual/Yazidi support provided SADIE ALEX - 10/29/2020 7:43 EST Electronically signed by Kailey [facility] Conversion Finished Cigar Maker Cerner at 02/08/2023 12:38 PM CDT documented in this encounter Plan of Treatment Not on file documented as of this encounter Visit Diagnoses Not on filedocumented in this encounter
--- OUTSIDE RECORDS SUMMARY | 2025-06-08 08:49 | XMS_ITS | Encounter Summary ---
Author Organization [employer] ([place], [place], [place], [place]) Address [address] [place] [address] Care Team Providers Care Television Program Director Name Role Phone Unavailable Primary Care Provider Unavailabl e Encounter Details Date Type Department Care Team (Late st Contact Info) Description 10/29/2020 Transcribed Document [facility] Radiology [address] [place] [address] Vicente Orr MD [address] [address] Social History Tobacco Use Types [...] is a 60 yo male admitted to [facility] per Dr. Green for an L3-5 PLIF. [...] 100 mg intravenous injection 1 Infusion, IntraVENous, [id number] Jardiance 25 mg oral tablet 25 mg [...]
--- OUTSIDE RECORDS SUMMARY | 2025-06-08 08:49 | XMS_ITS | Encounter Summary ---
Author Organization [employer] ([place], [place]) Address [address] [place] [address] Care Team Providers Care Auto Air Conditioning Mechanic Name Role Phone Unavailable Primary Care Provider Unavailabl e Encounter Details Date Type Department Care Team (Late st Contact Info) Description 10/29/2020 Transcribed Document [facility] [place] Family Medicine [facility] [place] [address] ProviderFarhan MD [address] [place] [address] Social History Tobacco Use Types [...] - Historical ProviderMD - 10/29/2020 7:06 AM INTERMEDIATE CARD TENDER Admission History, Adult Entered On: 10/29/2020 19:47 [...] Ambulatory Legal Guardian : Unaccompanied Support Person/Patient Pocket Setter : Yes Support Person/Pt Rep Name : Taylor Silvestre - Support Person/Pt Rep Contact Information : [phone] Want Family/Rep/Phys Notified of Admit : No Emergency Contact #1 : Taylorwilliam Silvestre Emergency Contact #1 ` Emergency Contact #1 Relationship : ` Emergency Contact #2 : ` Emergency Contact #2 Phone Number : ` Emergency Contact #2 Relationship : ` Primary Language : Georgian Preferred Communication Mode : Verbal Communication Barrier : None Back Panel Padder Needed : No DARIUS VELIZ RN - [...] Scale Risk Level : 25-45 Medium Risk Hostetter Fall Interventions : Adequate lighting, Assistive devices [...] Source : Estimated Height Entry Format : [place] Height, Feet : 5 ft(Converted to: 152 cm, 60 Inch) Height, Inches : 9 Inch(Converted to: 0 ft 9 Inch, 22.86 cm) Clinical Height : 175.26 cm Weight Source : Standing scale Weight Entry Format : [place] Clinical Dosing Weight : 106.36 kg Weight, Pounds : 234 lb Body Surface Area (BSA) : 2.21 m2 Body Mass Index : 34.6 kg/m2 (HI) [place] Body Weight : 70 kg DARIUS VELIZ [...] DARIUS VELIZ RN - 10/29/2020 19:45 EST [place] Suicide Severity Rating Scale (C-SSRS) CSSRS Past Month Wish to be : No CSSRS Past Month Suicidal Thoughts : No CSSRS Lifetime Suicide Behavior : No Suicide Severity Rating Score : 0 Suicide Severity Rating : No Additional Care Required at this time DAIRUS VELIZ RN - 10/29/2020 19:45 EST Psychosocial [...] 10/29/2020 19:45 EST Electronically signed by Kailey [facility] Conversion Change Coordinator Cerner at 02/08/2023 12:12 PM CDT documented in this encounter Plan of Treatment Not on file documented as of this encounter Visit Diagnoses Not on filedocumented in this encounter
--- OUTSIDE RECORDS SUMMARY | 2025-06-08 08:49 | XMS_ITS | Encounter Summary ---
Author Organization [employer] ([place], [place], [place], [place]) Address [address] [place] [address] Care Team Providers Care Blister Pack Operator Name Role Phone Unavailable Primary Care Provider Unavailabl e Encounter Details Date Type Department Care Team (Late st Contact Info) Description 10/29/2020 Transcribed Document [facility] [place] Family Medicine [facility] [place] [address] ProviderFarhan MD [address] [place] [address] Social History Tobacco Use Types [...] - Farhan ProviderMD - 10/29/2020 10:34 AM BILLING CLINICIAN Pain Assessment Entered On: 10/30/2020 20:02 EST [...]
--- OUTSIDE RECORDS SUMMARY | 2025-06-08 08:49 | XMS_ITS | Encounter Summary ---
Author Organization [employer] ([place], [place], [place], [place]) Address [address] [place] [address] Care Team Providers Care Medical Geneticist Name Role Phone Unavailable Primary Care Provider Unavailabl e Encounter Details Date Type Department Care Team (Late st Contact Info) Description 10/28/2020 Transcribed Document [facility] [place] Family Medicine [address] [place] [address] ProviderFarhan MD [address] [place] [address] Social History Tobacco Use Types [...] - Historical ProviderMD - 10/28/2020 12:39 PM ESTIMATOR UM Authorization Entered On: 10/28/2020 12:40 EST Performed On: 10/28/2020 12:39 EST by DERICK SHIPMAN, Food Writer Primary Insurance Authorization Authorization and Policy Numbers : Insurance 1 Health Plan: [employer] CHOICE PPO Policy Number: [id number] Authorization Number: Insurance Primary Name : [employer] Choice [id number] Auth/Referral Contact Name-Primary : Alfredo Casas Authorization [...] : No Authorization Comments Found DERICK SHIPMAN, Food Writer - 10/28/2020 12:39 EST Electronically signed by Kailey, [facility] Conversion Reverse Logistics Analyst Cerner at 02/08/2023 12:46 PM CDT documented in this encounter Plan of Treatment Not on file documented as of this encounter Visit Diagnoses Not on filedocumented in this encounter
--- OUTSIDE RECORDS SUMMARY | 2025-06-08 08:49 | XMS_ITS | Encounter Summary ---
Author Organization [employer] ([place], [place], [place], [place]) Address [address] [place] [address] Care Team Providers Care Supervisor [place] Name Role Phone Unavailable Primary Care Provider Unavailabl e Encounter Details Date Type Department Care Team (Late st Contact Info) Description 10/28/2020 Transcribed Document [facility] [place] Family Medicine [address] [place] [address] ProviderFarhan MD [address] [place] [address] Social History Tobacco Use Types [...] - Historical ProviderMD - 10/28/2020 1:52 PM REGIONAL PRODUCTION MANAGER UM Authorization Entered On: 10/28/2020 13:54 EST Performed On: 10/28/2020 13:52 EST by ROLF LUDWIG RN-Utilization Review Primary Insurance Authorization Authorization and Policy Numbers : Insurance 1 Health Plan: [employer] CHOICE PPO Policy Number: [id number] Authorization Number: Insurance Primary Name : [employer] Choice [id number] Auth/Referral Contact Name-Primary : Alfredo Casas Authorization [...] or availity as of yet (DERICK SHIPMAN, Wash And Greaser 10/28/2020 12:39) ROLF LUDWIG, RN-Utilization Review - 10/28/2020 13:52 EST Electronically signed by [facility], [facility] Conversion Digital Media Intern Cerner at 02/08/2023 12:33 PM CDT documented in this encounter Plan of Treatment Not on file documented as of this encounter Visit Diagnoses Not on filedocumented in this encounter
--- OUTSIDE RECORDS SUMMARY | 2025-06-08 08:49 | XMS_ITS | Encounter Summary ---
Author Organization [facility] Address [address] [place] [address] Care Team Providers Care Operational Communication Chief Name Role Phone Ministerio Rosas MD Unavailable [phone] Khadijah Dolan APRN Primary Care Provider [phone] Encounter Details Date Type Department Care Team [...] Info) Description 06/23/2025 8:40 AM EDT Appointment [facility] [address] [place] [address] 06/23/2025 10:00 AM EDT Office Visit [facility] [address] [place] [address] Ministerio Rosas MD [address] [address] documented as of this encounter [...] documented as of this encounter Care Teams Operational Communication Chief Relationship Specialty Start Date End Date Khadijah Dolan APRN [address] [place] [address] PCP - General 05/04/25 Ministerio Rosas MD [address] [address] Surgeon Urology 09/23/24 documented as of this encounter
--- OUTSIDE RECORDS SUMMARY | 2025-06-08 08:49 | XMS_ITS | Encounter Summary ---
Author Organization [employer] ([place], [place], [place], [place]) Address [address] [place] [address] Care Team Providers Care Locum Tenens Psychiatrist Name Role Phone Unavailable Primary Care Provider Unavailabl e Encounter Details Date Type Department Care Team (Late st Contact Info) Description 10/29/2020 Transcribed Document [facility] [place] [facility] [place] [address] ProviderFarhan MD [address] [place] [address] Social History Tobacco Use Types [...] - Historical ProviderMD - 10/29/2020 3:35 PM COLOR CARD MAKER Treatment Intervention, PT Entered On: 10/31/2020 9:54 [...] Chase PHYSICAL THERAPIST - 10/31/2020 9:49 EST Band Splicer Goals Mobility/Bed Mobility LTG PT Grid Goal [...]
--- OUTSIDE RECORDS SUMMARY | 2025-06-08 08:49 | XMS_ITS | Encounter Summary ---
Author Organization [employer] ([place], [place], [place], [place]) Address [address] [place] [address] Care Team Providers Care Car Oiler Name Role Phone Unavailable Primary Care Provider Unavailabl e Encounter Details Date Type Department Care Team (Late st Contact Info) Description 10/26/2020 Transcribed Document [facility] [place] Medicine [facility] [place] [address] ProviderFarhan MD [address] [place] [address] Social History Tobacco Use Types [...] - Historical ProviderMD - 10/26/2020 9:18 AM SERVICE CAPTAIN PAT Adult Entered On: 10/26/2020 9:22 EST [...] Source : Estimated Height Entry Format : Eagle Alpha Height, Feet : 5 ft(Converted to: 152 cm, 60 Inch) Height, Inches : 9 Inch(Converted to: 0 ft 9 Inch, 22.86 cm) Clinical Height : 175.26 cm Weight Source : Standing scale Weight Entry Format : Stewart Clinical Dosing Weight : 106.36 kg Weight, Pounds : 234 lb Body Surface Area (BSA) : 2.21 m2 Body Mass Index : 34.6 kg/m2 (HI) [place] Body Weight : 70 kg Jolene Lino [...] : Yes Spiritual/Cultural Needs Comment : 10/29/20 Yazdanism Preference : Orthodox Spiritual/Cultural Needs Comment : 10/29/20 Toni Kirby Rn - 10/26/2020 9:18 EST [place] Suicide Severity Rating Scale (C-SSRS) CSSRS Past [...] RN - 10/29/2020 6:56 EST Support Person/Patient Psychology Professor : Yes Support Person/Pt Rep Name : Taylor Silvestre - Support Person/Pt Rep Contact Information : [phone] Want Family/Rep/Phys Notified of Admit : No Toni Kirby Rn - 10/26/2020 9:18 EST Emergency Contact #1 : Taylor Konrad Emergency Contact #1 ` Emergency Contact #1 Relationship : ` Jolene Lino Rn - 10/27/2020 10:51 EST Emergency Contact #2 : ` Emergency Contact #2 Phone Number : ` Emergency Contact #2 Relationship : ` Primary Language : Estonian Preferred Communication Mode : Verbal Communication Barrier : None Federal Air Marshal Needed : No Toni Kirby Rn - [...]
--- OUTSIDE RECORDS SUMMARY | 2025-06-08 08:49 | XMS_ITS | Encounter Summary ---
Author Organization [facility] Address [address] [place] [address] Care Team Providers Care Fire Prevention Captain Name Role Phone Ministerio Rosas MD Unavailable Khadijah Dolan APRN Primary Care Provider [phone]- [phone] Reason for Visit * Reason Onset Date Comments HCN Clinical Concern/Question 05/19/2025 HCN Status Update Call #2 05/19/2025 Encounter Details Date Type Department Care Team (Late st Contact Info) Description 05/19/2025 [facility]phone [facility] [address] [place] [address] Ministerio Rosas MD [address] [place] [address] HCN Clinical Concern/Question; HCN Status [...] encounter Miscellaneous Notes * Telephone Encounter - Matthias Leggett - 06/03/2025 9:39 AM EDT Called and spoke with Mr. Silvestre. Relayed recommendations of scan. Pt would like CT scan scheduled day prior to appointment (would prefer same day but appointment with Dr. Rosas on 06/23 is at 8am). Could we get them scheduled please? * Telephone Encounter - Kenneth Simpson MD - 06/02/2025 5:17 PM EDT Called patient to discuss the results of his recent CT urogram. Discussed that there is a slightly enlarged lymph node near the left renal vein which is slightly increased in size compared to previous scans. Discussed the patient's case with Dr. Rosas and we will plan for repeat CT imaging prior tohis follow up in 06/2025. All the patient's questions and concerns were addressed. * Telephone Encounter - Wild Rivera - 05/26/2025 3:42 PM EDT Status Update Call #2 2nd call regarding the status of the initial request. Best contact number: [phone] Optimal time of day to reach caller: ANYTIME Additional comments/information from caller: Note: Please do not reply to this message. Follow-up communication and further actions as a result of this message need to be communicated with the patient directly, if the patient is not active onMyChart. If the patient is active on MyChart, they will receive notification of the communication/outcome via PageLever. * Telephone Encounter - Cierra Peacock - 05/25/2025 10:17 AM EDT Clinical Concern/Question Reason for Call: Patient is asking for a call back regarding needing the CT scan results. Best contact number: [phone] (mobile) Optimal time of day to reach caller: ANYTIME Additional comments/information from caller: None Note: Please do not reply to this message. Follow-up communication and further actions as a result of this message need to be communicated with the patient directly, if the patient is not active onMyChart. If the patient is active on MyChart, they will receive notification of the communication/outcome via MyChart. * Telephone Encounter - Ventura Hernandez - 05/19/2025 1:25 PM EDT Clinical Concern/Question Reason for Call: Patient calling to get CT results (05/05/25). Records in [facility]. Please review and call patient to discuss. Thank you Best contact number: [phone] (mobile) Optimal time of day to reach caller: ANYTIME Additional comments/information from caller: None Note: Please do not reply to this message. Follow-up communication and further actions as a result of this message need to be communicated with the patient directly, if the patient is not active onMyChart. If the patient is active on MyChart, they will receive notification of the communication/outcome via MyChart. documented in this encounter Plan of Treatment Upcoming Encounters Date Type Department Care Team (Late st Contact Info) Description 06/23/2025 8:40 AM EDT Appointment [facility] [address] [place] [address] 06/23/2025 10:00 AM EDT Office Visit [facility] Urology [address] [place] [address] Ministerio Rosas MD [address] [place] [address] documented as of this encounter [...] documented as of this encounter Care Teams Fire Prevention Captain Relationship Specialty Start Date End Date Khadijah Dolan APRN [address] [place] [address] PCP - General 05/04/25 Ministerio Rosas MD [address] [place] [address] Surgeon Urology 09/23/24 documented as of this encounter
--- OUTSIDE RECORDS SUMMARY | 2025-06-08 08:50 | XMS_ITS | Encounter Summary ---
Author Organization [employer] ([place], [place], [place], [place]) Address [address] [place] [address] Care Team Providers Care Keycase Assembler Name Role Phone Unavailable Primary Care Provider Unavailabl e Encounter Details Date Type Department Care Team (Late st Contact Info) Description 10/30/2020 Transcribed Document [facility] [place] [facility] [place] [address] ProviderFarhan MD [address] [place] [address] Social History Tobacco Use [...] - Historical ProviderMD - 10/30/2020 10:51 AM CLAIM TAKER UM Authorization Entered On: 10/30/2020 10:51 EST Performed On: 10/30/2020 10:51 EST by Ca Amaya Rn-Utilization Review Primary Insurance Authorization Authorization and Policy Numbers : Insurance 1 Health Plan: [employer] CHOICE PPO Policy Number: [id number] Authorization Number: Insurance Primary Name : [employer] Choice [id number] Authorization Status-Primary : Pending Auth/Referral Contact Name-Primary : Alfredo Casas Reference Number-Primary : [id number] Authorization Number-Primary : Pending Authorized Service Begin [...] or availity as of yet (DERICK SHIPMAN, Line Builder 10/28/2020 12:39) Ca Amaya, Rn-Utilization Review - 10/30/2020 10:51 EST Electronically signed by Kailey, [facility] Conversion Auto Job Estimator Cerner at 02/08/2023 12:23 PM CDT documented in this encounter Plan of Treatment Not on file documented as of this encounter Visit Diagnoses Not on filedocumented in this encounter
--- OUTSIDE RECORDS SUMMARY | 2025-06-08 08:50 | XMS_ITS | Encounter Summary ---
Author Organization [employer] ([place], [place], [place], [place]) Address [address] [place] [address] Care Team Providers Care Powertrain Engineer Name Role Phone Unavailable Primary Care Provider Unavailabl e Encounter Details Date Type Department Care Team (Late st Contact Info) Description 11/04/2020 Transcribed Document [facility] [place] [facility] [place] [address] ProviderFarhan MD [address] [place] [id number] Social History Tobacco Use Types Packs/Day Years [...] - Farhan ProviderMD - 11/04/2020 6:06 PM MANAGER OF EXHIBITIONS AND COLLECTIONS [facility] Entered On: 11/04/2020 18:08 EST Performed On: 11/04/2020 18:06 EST by Armida Naidu, Carburetor Mechanic Patient Resource [facility] Provider Status : EST Other Established Provider Name : MANJEET HURLEY Patient Phone Number : [phone] Patient Insurance Type : Medicare Source of [...] at ED : Other Primary Language : Tajik Patient Resource [facility] Comment : Patient needs follow up appointment. Called office and patient already has two appointments scheduled with Addie Veliz (2 week staple removal and 4 week post op) Follow Up Needed : Armida Youssef, Carburetor Mechanic - 11/04/2020 18:06 EST documented in this encounter Plan of Treatment Not on file documented as of this encounter Visit Diagnoses Not on filedocumented in this encounter
--- OUTSIDE RECORDS SUMMARY | 2025-06-08 08:50 | XMS_ITS | Encounter Summary ---
Author Organization [employer] ([place], [place], [place], [place]) Address [address] [place] [address] Care Team Providers Care Analytical Sciences Director Name Role Phone Unavailable Primary Care Provider Unavailabl e Encounter Details Date Type Department Care Team (Late st Contact Info) Description 10/30/[address] [facility] [place] [address] [place] [address] ProviderFarhan MD [address] [place] [address] Social History Tobacco Use Types [...] - Farhan ProviderMD - 10/30/2020 10:00 AM DRAFTER CASTINGS Pain Assessment Entered On: 10/30/2020 20:02 EST [...]
--- OUTSIDE RECORDS SUMMARY | 2025-06-08 08:50 | XMS_ITS | Encounter Summary ---
Author Organization [employer] ([place], [place], [place], [place]) Address [address] [place] [address] Care Team Providers Care Civil Laboratory Technician Name Role Phone Unavailable Primary Care Provider Unavailabl e Encounter Details Date Type Department Care Team (Late st Contact Info) Description 10/29/2020 Transcribed Document [facility] [address] [facility] [address] [place] [address] Addie Veliz Jr., MD [address] [place] [address] [address] [place] [address] Social History Tobacco Use Types Packs/Day [...]
--- OUTSIDE RECORDS SUMMARY | 2025-06-08 08:50 | XMS_ITS | Encounter Summary ---
Author Organization [employer] ([place], [place], [place], [place]) Address [address] [place] [address] Care Team Providers Care Jewelry Mechanic Name Role Phone Unavailable Primary Care Provider Unavailabl e Encounter Details Date Type Department Care Team (Late st Contact Info) Description 10/30/2020 Transcribed Document [facility] [address] [facility] [address] [place] [address] [place] [address] [place] [address] [address] [place] [address] Social History Tobacco Use Types [...] tomorrow and go home tomorrow. He requests [place] instead of Percocet when he goes home. I put a [place] prescription on his chart. I talked to his . They're both happy with the plan. documented in this encounter Plan of Treatment Not on file documented as of this encounter Visit Diagnoses Not on filedocumented in this encounter
--- OUTSIDE RECORDS SUMMARY | 2025-06-08 08:50 | XMS_ITS | Encounter Summary ---
Author Organization [employer] ([place], [place], [place], [place]) Address [address] [place] [address] Care Team Providers Care Appliance Line Assembler Name Role Phone Unavailable Primary Care Provider Unavailabl e Encounter Details Date Type Department Care Team (Late st Contact Info) Description 10/30/2020 Transcribed Document [facility] [place] Family Medicine [address] [place] [address] ProviderFarhan MD [address] [place] [address] Social History Tobacco Use Types [...] - Historical ProviderMD - 10/30/2020 10:45 AM COUNTER FORMER UM Authorization Entered On: 10/30/2020 10:45 EST Performed On: 10/30/2020 10:45 EST by Ca Amaya Rn-Utilization Review Primary Insurance Authorization Authorization and Policy Numbers : Insurance 1 Health Plan: [employer] CHOICE PPO Policy Number: [id number] Authorization Number: Insurance Primary Name : [employer] Choice [id number] Auth/Referral Contact Name-Primary : Alfredo Casas Authorization [...] or availity as of yet (DERICK SHIPMAN, Forestry Adviser 10/28/2020 12:39) Ca Amaya, Rn-Utilization Review - 10/30/2020 10:45 EST Electronically signed by [facility], [facility] Conversion Canteen Manager Cerner at 02/08/2023 12:31 PM CDT documented in this encounter Plan of Treatment Not on file documented as of this encounter Visit Diagnoses Not on filedocumented in this encounter
--- OUTSIDE RECORDS SUMMARY | 2025-06-08 08:50 | XMS_ITS | Encounter Summary ---
Author Organization [employer] ([place], [place], [place], [place]) Address [address] [place] [address] Care Team Providers Care Calculus Teacher Name Role Phone Unavailable Primary Care Provider Unavailabl e Encounter Details Date Type Department Care Team (Late st Contact Info) Description 10/29/2020 Transcribed Document [facility] Neurology - [address] [facility] [address] [place] [address] Waylon Green Jr., MD [address] [facility] [address] [place] [address] Social History Tobacco Use Types [...] Airo intraoperative CT scan and [employer] neuronavigation. DIRECTOR OF INDIVIDUAL GIVING: Enriqueta Carrillo PA-C. ANESTHESIA: General endotracheal anesthesia. [...] These were Steinmann pins, placed with a Yovigo drill under navigation. We used a pre-existing [...] stab incision was used to tunnel a 15-Indian round epidural JESUS drain. A drain stitch [...] hardware, placement of new hardware, wound closure. /[id number] Waylon Green Jr, MD RDO/AQ / RDO / MODL /[id number] documented in this encounter Plan of Treatment Not on file documented as of this encounter Visit Diagnoses Not on filedocumented in this encounter
--- OUTSIDE RECORDS SUMMARY | 2025-06-08 08:50 | XMS_ITS | Encounter Summary ---
Author Organization [employer] ([place], [place], [place], [place]) Address [address] [place] [address] Care Team Providers Care Telephone Station Installer Name Role Phone Unavailable Primary Care Provider Unavailabl e Encounter Details Date Type Department Care Team (Late st Contact Info) Description 10/30/2020 Transcribed Document [facility] [place] [facility] [place] [address] ProviderFarhan MD [address] [place] [address] Social History Tobacco Use Types [...] - Historical ProviderMD - 10/30/2020 10:50 AM RAIL ASSEMBLER UM Authorization Entered On: 10/30/2020 10:51 EST Performed On: 10/30/2020 10:50 EST by Ca Amaya Rn-Utilization Review Primary Insurance Authorization Authorization and Policy Numbers : Insurance 1 Health Plan: [employer] CHOICE PPO Policy Number: [id number] Authorization Number: Insurance Primary Name : [employer] Choice [id number] Authorization Status-Primary : Pending Auth/Referral Contact Name-Primary : Alfredo Casas Reference Number-Primary : [id number] Authorization Number-Primary : Pending Authorized Service Begin [...] or availity as of yet (DERICK SHIPMAN, [facility] Shift Lead 10/28/2020 12:39) Ca Amaya, Rn-Utilization Review - 10/30/2020 10:50 EST Electronically signed by Kailey, [facility] Conversion Magnaflux Operator Cerner at 02/08/2023 12:12 PM CDT documented in this encounter Plan of Treatment Not on file documented as of this encounter Visit Diagnoses Not on filedocumented in this encounter
--- OUTSIDE RECORDS SUMMARY | 2025-06-08 08:50 | XMS_ITS | Patient Health Record ---
Author Organization [facility] Address [address] [place] [address] Care Team Providers Care Dimension Specification Inspector Name Role Phone Khadijah Hanna APRN, Mem Primary Care Provider Unavailable Roger Keen II Unavailable [place] -Service Employee David DUKE Unavailable Unavailable Allergies Allergen (clinical [...] W/U Status Risk Notes Problem Rheumatoid arthritis (90166333) Rheumatoid arthritis, unspecified (M06.9) Active confirmed Problem Osteoarthritis (508428781) Unspecified osteoarthritis, unspecified site (M19.90) Active confirmed Problem Solitary sacroiliitis (332487866) Sacroiliitis, not elsewhere classified (M46.1) Active confirmed Problem Lumbosacral spondylosis without myelopathy (10847695) Spondylosis without myelopathy or radiculopathy, lumbar region (M47.816) Active confirmed Problem Lumbar radiculopathy (683761370) Radiculopathy, lumbar region (M54.16) Active confirmed Problem Enthesopathy of hip region (32004033) Trochanteric bursitis, unspecified hip (M70.60) Active confirmed Problem Long-term current use of drug therapy (434651799) Other remote computer terminal operator (current) drug therapy (Z79.899) Active confirmed Vital Signs Heart Rate 79 /min 06/19/2024 Blood pressure diastolic 74 mm Hg 06/19/2024 Height 68 in 06/19/2024 Blood pressure systolic 132 mm Hg 06/19/2024 Weight 240 lbs 06/19/2024 BMI 36.49 kg/m2 06/19/2024 Encounters Encounter Location Date Provider Diagnosis [facility] [address] [place] [address] 06/19/2024 Roger Keen Other retirement (current) drug therapy Z79.899 ; Unspecified osteoarthritis, unspecified site M19.90 ; Rheumatoid arthritis, unspecified M06.9 ; Spondylosis without myelopathy or radiculopathy, lumbar region M47.816 ; Radiculopathy, lumbar region M54.16 ; Sacroiliitis, not elsewhere classified M46.1 and Trochanteric bursitis, unspecified hip M70.60 [facility] [address] [place] [address] 06/19/2024 Roger Keen Other retirement (current) drug therapy Z79.899 Assessments Encounter Date [...] cancer approximately 4 weeks ago. Taking [employer] 7.5/325 mg 3-4 times per day with relief. Denies side effects. Continues Lyrica with PCP. Declines injection therapy. Abiodun and UDS reviewed in room. Follow up in 2 months. 06/19/2024 Other remote computer terminal operator (current) drug therapy (ICD-10 - Z79.899) 06/19/24 1. Refill [employer] 7.5/325mg TID-QID 2. Continue Lyrica 225mg BID [...] cancer approximately 4 weeks ago. Taking [employer] 7.5/325 mg 3-4 times per day with relief. Denies side effects. Continues Lyrica with PCP. Declines injection therapy. Abiodun and ROSEMARIE reviewed in room. Follow up in 2 months. 06/19/2024 Other retirement (current) drug therapy (ICD-10 - Z79.899) 06/19/2024 [...] cancer approximately 4 weeks ago. Taking [employer] 7.5/325 mg 3-4 times per day with [...] cancer approximately 4 weeks ago. Taking [employer] 7.5/325 mg 3-4 times per day with [...] cancer approximately 4 weeks ago. Taking [employer] 7.5/325 mg 3-4 times per day with [...] cancer approximately 4 weeks ago. Taking [employer] 7.5/325 mg 3-4 times per day with [...] cancer approximately 4 weeks ago. Taking [employer] 7.5/325 mg 3-4 times per day with [...] cancer approximately 4 weeks ago. Taking [employer] 7.5/325 mg 3-4 times per day with relief. Denies side effects. Continues Lyrica with PCP. Declines injection therapy. Abiodun and ROSEMARIE reviewed in room. Follow up in 2 months. Plan Of Treatment No Information Insurance Providers Payer Name Payer Address Payer Phone Subscriber Number Group Number Insured Name Patient Relationship to Insured Coverage Start Date Coverage End Date [employer] Medicare HMO [id number] [address] [address] [place] [address] [id number] Noe Silvestre Self - patient is the [...] y Oncology Surgical History Surgery Date(Month/Year) appendectomy/ [facility] /unknow n 09/1997 carpal tunnel release [facility] /unknown 1990s right index finger/ [facility] unk nown right elbow/ [facility] /unknown unknown kidney/ [facility] (OP) 2016 lumbar spine fusion/ [facility]/ Dr. Green 3 day stay 03/2014, shoulder/ Bicep/ Dr. Wu/ [facility] 01/2016 [facility] Lumbar spine [facility] 3 days stay 20 21 Hospitalization History Reason Date(Month/Year)
--- OUTSIDE RECORDS SUMMARY | 2025-06-08 08:50 | XMS_ITS | Encounter Summary ---
Author Organization [employer] ([place], [place], [place], [place]) Address [address] [place] [address] Care Team Providers Care Supervisor Treating And Pumping Name Role Phone Unavailable Primary Care Provider Unavailabl e Encounter Details Date Type Department Care Team (Late st Contact Info) Description 11/03/2020 Transcribed Document [facility] [place] [address] ProviderFarhan MD [address] [place] [address] Social History Tobacco Use Types [...] - Historical ProviderMD - 11/03/2020 10:02 AM SUPERVISOR [employer] Patient: FRANSISCO CRAVEN Age: 60 Years Sex: Male : 1960 Admit Date 10/29/2020 12:20 Discharge Date 10/31/2020 15:52 Primary Care Provider MANJEET HURLEY, [facility] Discharge Diagnosis Lumbar stenosis 10/31/2020 M48.061 [...] 100 mg intravenous injection 1 Infusion, IntraVENous, [id number] Jardiance 25 mg oral tablet 25 mg = 1 Tab, Oral, QAM levothyroxine 200 mcg, Oral, Daily lisinopril 40 mg, Oral, Daily loratadine 10 mg oral tablet 10 mg = 1 Tab, Oral, Daily Lyrica 225 mg oral capsule 225 mg = 1 Cap, Oral, BID metFORMIN 1,000 mg, Oral, BID Irving 10 mg-325 mg oral tablet 1 Tab, [...]
--- OUTSIDE RECORDS SUMMARY | 2025-06-08 08:50 | XMS_ITS | Encounter Summary ---
Author Organization [employer] ([place], [place], [place], [place]) Address [address] [place] [address] Care Team Providers Care Green Material Value Added Assessor Name Role Phone Unavailable Primary Care Provider Unavailabl e Encounter Details Date Type Department Care Team (Late st Contact Info) Description 10/30/2020 Transcribed Document [facility] [place] Family Medicine [address] [place] [address] ProviderFarhan MD [address] [place] [address] Social History Tobacco Use Types [...] - Historical ProviderMD - 10/30/2020 10:50 AM HEARING SCREEN COORDINATOR UM Authorization Entered On: 10/30/2020 10:50 EST Performed On: 10/30/2020 10:50 EST by Ca Amaya Rn-Utilization Review Primary Insurance Authorization Authorization and Policy Numbers : Insurance 1 Health Plan: [employer] CHOICE PPO Policy Number: [id number] Authorization Number: Insurance Primary Name : [employer] Choice [id number] Authorization Status-Primary : Pending Auth/Referral Contact Name-Primary : Alfredo Casas Reference Number-Primary : [id number] Authorization Number-Primary : Pending, No Notes in [...] or availity as of yet (DERICK SHIPMAN, Printing Shop Supervisor 10/28/2020 12:39) Ca Amaya, Rn-Utilization Review - 10/30/2020 10:50 EST Electronically signed by Kailey [facility] Conversion Diesel Truck Mechanic Cerner at 02/08/2023 12:35 PM CDT documented in this encounter Plan of Treatment Not on file documented as of this encounter Visit Diagnoses Not on filedocumented in this encounter
--- OUTSIDE RECORDS SUMMARY | 2025-06-08 08:50 | XMS_ITS | Encounter Summary ---
Author Organization [employer] ([place], [place], [place], [place]) Address [address] [place] [address] Care Team Providers Care Clinical Psychology Teacher Name Role Phone Unavailable Primary Care Provider Unavailabl e Encounter Details Date Type Department Care Team (Late st Contact Info) Description 11/02/2020 Transcribed Document [facility] [place] [address] [place] [address] ProviderFarhan MD [address] [place] [id number] Social History Tobacco Use Types Packs/Day Years [...] - Historical ProviderMD - 11/02/2020 6:38 AM TECHNOLOGIST INFECTIOUS DISEASE UM Authorization Entered On: 11/02/2020 6:38 EST Performed On: 11/02/2020 6:38 EST by Diana Garcia, Registration Officer Primary Insurance Authorization Authorization and Policy Numbers : Insurance 1 Health Plan: [employer] CHOICE PPO Policy Number: [id number] Authorization Number: Insurance Primary Name : [employer] Choice [id number] Authorization Status-Primary : Notification only Auth/Referral Contact Name-Primary : Alfredo Casas Reference Number-Primary : [id number] Authorization Number-Primary : [id number] Number of Days Authorized-Primary : 5 Day(s) Authorized Service Begin Date-Primary : 10/29/2020 EST Authorized Service End Date-Primary : 11/03/2020 EST Authorization Comments-Primary : Authorized per email from Alfredo Muller RN. Historical Authorization Comments-Primary : Comment 1: inpt admission approved by [employer] choice per Availity. (TAQUERIA AGRAWAL Mkt Reeling And Tubing Machine Operator-Utilization Mgt 11/01/2020 15:33) Comment 2: per availity auth pended (Ca Amaya, Rn-Utilization Review 10/30/2020 10:50) Comment 3: [facility] to obtain preauth #. She states no auth # yet. She will call [employer] to check on it and call me back (ROLF LUDWIG, RN-Utilization Review 10/28/2020 13:52) Comment 4: Pt is david for INPT Lumbar Fusion Posterior 3 Level on Sunday10-29-20 [employer] Choice: No auth notes in [facility] or availity as of yet (DERICK SHIPMAN, Product Technology Scientist 10/28/2020 12:39) Diana Garcia, Registration Officer - 11/02/2020 6:38 EST documented in this encounter Plan of Treatment Not on file documented as of this encounter Visit Diagnoses Not on filedocumented in this encounter
--- OUTSIDE RECORDS SUMMARY | 2025-06-08 08:50 | XMS_ITS | Encounter Summary ---
Author Organization [employer] ([place], [place], [place], [place]) Address [address] [place] [address] Care Team Providers Care Hat Block Maker Name Role Phone Unavailable Primary Care Provider Unavailabl e Encounter Details Date Type Department Care Team (Late st Contact Info) Description 10/30/2020 Transcribed Document [facility] Radiology 1 [place] [address] Mary Beth Orr MD [address] [address] Social History Tobacco Use Types [...] is a 60 yo male admitted to [facility] per Dr. Green for an L3-5 PLIF. [...] 100 mg intravenous injection 1 Infusion, IntraVENous, [id number] Jardiance 25 mg oral tablet 25 mg [...]
--- OUTSIDE RECORDS SUMMARY | 2025-06-08 08:50 | XMS_ITS | Encounter Summary ---
Author Organization [facility] Address [address] [place] [address] Care Team Providers Care Sap Mobility Architect Name Role Phone Ministerio Rosas MD Unavailable [phone] Khadijah Dolan APRN Primary Care Provider [phone] Reason for Referral * Imaging (Routine) - Pending Review Specialty Diagnoses / Procedures Referred By Contac t Referred To Contact Radiology Diagnoses Urothelial carcinoma of bladder without invasion of muscle Procedures CT Urogram Ministerio Rosas MD [address] [place] [address] Phone: tel: fax: Referral ID Status Reason Start Date Expiration Date V isits Requested Visits Authorized [id number] Pending Review 06/02/2025 12/02/2026 1 1 Encounter Details Date Type Department Care Team (Late st Contact Info) Description 06/02/2025 Orders Only [facility] Urology [address] [place] [address] Kenneth Simpson MD [address] [place] [address] Urothelial carcinoma of bladder without invasion of muscle (Primary Dx) Social History Tobacco Use Types Packs/Day Years [...] Info) Description 06/23/2025 8:40 AM EDT Appointment [facility] CT [address] [place] [address] 06/23/2025 10:00 AM EDT Office Visit [facility] [address] [place] [address] Ministerio Rosas MD [address] [place] [address] Scheduled Orders Name Type Priority Associated Diagnoses Orde r Schedule CT Urogram Imaging Routine Urothelial carcinoma of bladder without invasion of muscle Expected: 06/23/2025 (Approximate), Expires: 12/04/2026 documented as of this encounter Visit Diagnoses Diagnosis Urothelial carcinoma of bladder without invasion of muscle- Primary documented in this encounter Additional Health Concerns Infection Onset Date Last Indicated 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
--- OUTSIDE RECORDS SUMMARY | 2025-06-08 08:50 | XMS_ITS | Encounter Summary ---
Author Organization [employer] ([place], [place], [place], [place]) Address [address] [place] [address] Care Team Providers Care Print Production Associate Name Role Phone Unavailable Primary Care Provider Unavailabl e Encounter Details Date Type Department Care Team (Late st Contact Info) Description 10/30/2020 Transcribed Document [facility] [address] [place] [address] ProviderFarhan MD [address] [place] [address] Social History Tobacco Use Types [...] - Historical ProviderMD - 10/30/2020 5:00 AM CHILDHOOD DEVELOPMENT TEACHER Chart Check - Review Order Profile Entered On: 10/30/2020 5:11 EST Performed On: 10/30/2020 5:00 EST by Sam Anton, RN Chart Check Powerplans Initiated/Discontinued as Appropriate : Yes All Active Orders Reviewed : Yes Sam Anton RN - 10/30/2020 5:11 EST documented in this encounter Plan of Treatment Not on file documented as of this encounter Visit Diagnoses Not on filedocumented in this encounter
--- OUTSIDE RECORDS SUMMARY | 2025-06-08 08:50 | XMS_ITS | Encounter Summary ---
Author Organization [employer] ([place], [place], [place], [place]) Address [address] [place] [address] Care Team Providers Care Site Promotion Agent Name Role Phone Unavailable Primary Care Provider Unavailabl e Encounter Details Date Type Department Care Team (Late st Contact Info) Description 10/29/2020 Transcribed Document [facility] [place] Family Medicine [address] [place] [address] ProviderFarhan MD [address] [place], [place] [id number] Social History Tobacco Use Types Packs/Day Years [...] - Historical ProviderMD - 10/29/2020 12:20 PM FEEDLOT MANAGER Meds to Bed Enrollment Entered On: 10/29/2020 12:21 EST Performed On: 10/29/2020 12:20 EST by Matty Hoover, MECHANICAL MANUFACTURING TECHNICIAN LEAD Meds to Bed Enrollment Patient Enrollment Decision: : Yes/enroll in meds to bed program Matty Hoover MECHANICAL MANUFACTURING TECHNICIAN LEAD - 10/29/2020 12:21 EST documented in this encounter Plan of Treatment Not on file documented as of this encounter Visit Diagnoses Not on filedocumented in this encounter
--- OUTSIDE RECORDS SUMMARY | 2025-06-08 08:50 | XMS_ITS | Encounter Summary ---
Author Organization [employer] ([place], [place], [place], [place]) Address [address] [place] [address] Care Team Providers Care Mold Making Supervisor Name Role Phone Unavailable Primary Care Provider Unavailabl e Encounter Details Date Type Department Care Team (Late st Contact Info) Description 11/04/2020 Transcribed Document [facility] [place] [facility] [place] [address] ProviderFarhan MD [address] [place] [address] Social History Tobacco Use Types [...] Farhan ProviderMD - 11/04/2020 6:06 PM MANAGER PUBLISHING Patient Education Materials Follows: Spinal Fusion, Adult, Care After This sheet gives you information about how to care for yourself after your procedure. Your doctor may also give you more specific instructions. If you have problems or questions, contact your doctor. Follow these instructions at home: Medicines ??? Take kuvk-lis-wwpkeey and prescription medicines only as told by [...] cannot use soap and water, use hand log feeder. ? Change your bandage as told by [...] your pee (urine) pale yellow. ? Take ljzu-rnw-athiepc or prescription medicines. ? Eat foods that [...] 02/01/2012 Document Revised: 01/29/2020 Document Reviewed: 01/22/2018 [employer] Patient Education ? 2019 [employer] documented in this encounter Plan of Treatment Not on file documented as of this encounter Visit Diagnoses Not on filedocumented in this encounter
--- OUTSIDE RECORDS SUMMARY | 2025-06-08 08:50 | XMS_ITS | Clinical Summary ---
Author Organization [facility] Address [address] [place] [address] Care Team Providers Care Belt Knife Feeder Name Role Phone Maycol Erickson PA-C Primary Care Provider [phone] Allergies Active Allergy Reactions Criticality Noted Date [...] Hemoglobin A1C 5.1 4.00 - 6.00 % [facility] Comment: DF by IF @ 10/12/2014 11:49 The [place] [employer] recommends maintenance of Hemoglobin A1C at 7.0% or lower. Goals for Hemoglobin A1C reduction may need to be modified if hypoglycemia is a problem. Mean Bld Glu Estim. 93 mg/dL [facility] Blood specimen (specimen) 10/12/2014 10:50 AM EST Narrative [facility] - 10/12/2014 11:49 AM EST Specimen Type: Blood [facility] Santo Klein Jr., MD LAB BLOOD ORDERABLE S Final Result [facility] [address] [place] [address], from Last 3 Months or Most Recently Relevant to Health Maintenance Insurance [place] [address] MEDICARE ADVANTAGE Care Teams Belt Knife Feeder Relationship Specialty Start Date End Date Maycol Erickson PA-C [address] [place] [address] PCP - General Physician Roller Presser Operator 08/15/16
--- OUTSIDE RECORDS SUMMARY | 2025-06-08 08:50 | XMS_ITS | Referral Summary ---
Author Organization [employer] ([place], [place], [place], [place]) Address [address] [place] [address] Care Team Providers Care Corporate Buyer Name Role Phone Unavailable Primary Care Provider [...] Date Keyon rded Speak language other than Frisian at home Not on file 10/30/2023 Want [...]
--- OUTSIDE RECORDS SUMMARY | 2025-06-08 08:50 | XMS_ITS | Encounter Summary ---
Author Organization [employer] ([place], [place], [place], [place]) Address [address] [place] [address] Care Team Providers Care Enterprise Systems Architect Name Role Phone Unavailable Primary Care Provider Unavailabl e Encounter Details Date Type Department Care Team (Late st Contact Info) Description 10/31/2020 Transcribed Document [facility] [address] [place] [address] ProviderFarhan MD [address] [place] [id number] Social History Tobacco Use Types Packs/Day Years [...] - Historical ProviderMD - 10/31/2020 2:50 PM EX CHEF Initial Discharge Planning Entered On: 10/31/2020 14:51 EST Performed On: 10/31/2020 14:50 EST by SHAWNEE MAYORGA RN-Upholstery Department Supervisor Initial Assessment I Previously Documented Living Environment [...] No Is Guardianship Needed : No SHAWNEE AMYORGA RN-Upholstery Department Supervisor - 10/31/2020 14:50 EST Initial Assessment II Sensory and Motor Deficits : None Current Home Treatments and Equipment : None SHAWNEE MAYORGA RN-Upholstery Department Supervisor - 10/31/2020 14:50 EST Discharge Needs I Anticipated Discharge Date : 10/31/2020 EST Anticipated Discharge To, CM : Home with family care Current Home Treatment/Equipment : Current Home Treatment/Equipment No qualifying data available. Post Acute/Home Treatments : None Documentation Status Complete : Yes SHAWNEE MAYORGA RN-Upholstery Department Supervisor - 10/31/2020 14:50 EST Discharge Needs II Professional Skilled Services : Professional Skilled Services No qualifying data available. Needs Assistance with Transportation : No Discharge Options Discussed with Patient : Discharge transportation, DME, Home Health SHAWNEE MAYORGA RN-Upholstery Department Supervisor - 10/31/2020 14:50 EST documented in this encounter Plan of Treatment Not on file documented as of this encounter Visit Diagnoses Not on filedocumented in this encounter
--- OUTSIDE RECORDS SUMMARY | 2025-06-08 08:50 | XMS_ITS | Encounter Summary ---
Author Organization [employer] ([place], [place], [place], [place]) Address [address] [place] [address] Care Team Providers Care Physician'S Aide Name Role Phone Unavailable Primary Care Provider Unavailabl e Encounter Details Date Type Department Care Team (Late st Contact Info) Description 10/31/2020 Transcribed Document [facility] Neurology - [address] [facility] [address] [place] [address] Addie Veliz Jr., MD [address] [place] [address] [address] [place] [address] Social History Tobacco Use Types [...]
--- OUTSIDE RECORDS SUMMARY | 2025-06-08 08:50 | XMS_ITS | Encounter Summary ---
Author Organization [employer] ([place], [place], [place], [place]) Address [address] [place] [address] Care Team Providers Care Dividing Machine Operator Helper Name Role Phone Unavailable Primary Care Provider Unavailabl e Encounter Details Date Type Department Care Team (Late st Contact Info) Description 10/31/2020 Transcribed Document [facility] [place] [facility] [place] [address] ProviderFarhan MD [address] [place] [id number] Social History Tobacco Use Types Packs/Day Years [...] - Historical ProviderMD - 10/31/2020 3:52 PM ROUGHING MILL OPERATOR Final Discharge Planning Entered On: 10/31/2020 15:53 EST Performed On: 10/31/2020 15:52 EST by SHAWNEE MAYORGA RN-Automation Qtp Tester Final Discharge Planning Discharge Arrangements : Patient Post-Acute Information Patient Name: FRANSISCO CRAVEN Gender: Male : [birth year] Age: 60 Years No Post-Acute Placement(s) Listed No Post-Acute Service(s) Listed No [place] Referral(s) Listed Follow Up Appointment Scheduled : Yes Is Patient High/Moderate Readmission Risk? : No Discharge To Care Management : Home/Residential/Residential or Self Care - SHAWNEE MAYORGA RN-Automation Qtp Tester - 10/31/2020 15:52 EST Final Narrative Note Final Narrative Note : To d/c home with . Per PLOF independent. Ordered walker and BSC from [facility] and to deliver to room prior to d/c. denies need for HH or other needs. SHAWNEE MAYORGA, RN-Automation Qtp Tester - 10/31/2020 15:52 EST Electronically signed by Kailey [facility] Conversion Director Of Quality Improvement Cerner at 02/08/2023 12:21 PM CDT documented in this encounter Plan of Treatment Not on file documented as of this encounter Visit Diagnoses Not on filedocumented in this encounter
--- OUTSIDE RECORDS SUMMARY | 2025-06-08 08:50 | XMS_ITS | Encounter Summary ---
Author Organization [employer] ([place], [place], [place], [place]) Address [address] [place] [address] Care Team Providers Care Lube Man Name Role Phone Unavailable Primary Care Provider Unavailbrianna e Encounter Details Date Type Department Care Team (Late st Contact Info) Description 10/31/2020 Transcribed Document [facility] [place] [address] [place] [address] ProviderFarhan MD [address] [place], [place] [id number] Social History Tobacco Use Types Packs/Day Years [...] - Historical ProviderMD - 10/31/2020 2:00 AM SAW SUPERINTENDENT Private Sector Executive Details Entered On: 10/31/2020 2:40 EST Performed [...] 10/31/2020 2:40 EST Electronically signed by Kailey [facility] Conversion Molecular Pathologist Cerner at 02/08/2023 12:39 PM CDT documented in this encounter Plan of Treatment Not on file documented as of this encounter Visit Diagnoses Not on filedocumented in this encounter
--- OUTSIDE RECORDS SUMMARY | 2025-06-08 08:50 | XMS_ITS | Encounter Summary ---
Author Organization [employer] ([place], [place], [place], [place]) Address [address] [place] [address] Care Team Providers Care Infection Control Preventionist Name Role Phone Unavailable Primary Care Provider Unavailabl e Encounter Details Date Type Department Care Team (Late st Contact Info) Description 10/29/2020 Transcribed Document [facility] [place] [facility] [place] [address] ProviderFarhan MD [address] [place] [address] Social History Tobacco Use Types [...] - Historical ProviderMD - 10/29/2020 10:34 AM INDEXER Evaluation, Occupational Therapy Entered On: 10/29/2020 15:00 [...] CONNOR WALTON OTR/Desiree - 10/29/2020 14:54 EST Detention Goals, OT Bathing LTG Grid Goal #1 [...] EST Goal Status : Initial goal CONNOR WALTNO OTR/Desiree - 10/29/2020 14:54 EST Toilet Transfer [...] 10/29/2020 14:54 EST Electronically signed by Interface, [facility] Conversion Joinery Machinist Cerner at 02/08/2023 12:33 PM CDT documented in this encounter Plan of Treatment Not on file documented as of this encounter Visit Diagnoses Not on filedocumented in this encounter
--- OUTSIDE RECORDS SUMMARY | 2025-06-08 08:50 | XMS_ITS | Encounter Summary ---
Author Organization [employer] ([place], [place], [place], [place]) Address [address] [place] [address] Care Team Providers Care Escort Blind Name Role Phone Unavailable Primary Care Provider Unavailabl e Encounter Details Date Type Department Care Team (Late st Contact Info) Description 10/31/2020 Transcribed Document [facility] Radiology [address] [place] [address] Mary Beth Orr MD [address] [address] Social History Tobacco Use Types [...] is a 60 yo male admitted to [facility] per Dr. Green for an L3-5 PLIF. [...] 100 mg intravenous injection 1 Infusion, IntraVENous, [id number] Jardiance 25 mg oral tablet 25 mg [...]
--- OUTSIDE RECORDS SUMMARY | 2025-06-08 08:50 | XMS_ITS | Encounter Summary ---
Author Organization [employer] ([place], [place], [place], [place]) Address [address] [place] [address] Care Team Providers Care Edge Roller Name Role Phone Unavailable Primary Care Provider Unavailabl e Encounter Details Date Type Department Care Team (Late st Contact Info) Description 10/30/2020 Transcribed Document [facility] [place] Medicine [address] [place] [address] ProviderFarhan MD [address] [place], [place] [id number] Social History Tobacco Use Types Packs/Day Years [...] - Historical ProviderMD - 10/30/2020 2:00 AM CHICKEN AND FISH BUTCHER Paving Stone Installer Details Entered On: 10/30/2020 1:24 EST Performed [...] 10/30/2020 1:24 EST Electronically signed by Kailey [facility] Conversion Riprap Placing Supervisor Cerner at 02/08/2023 12:39 PM CDT documented in this encounter Plan of Treatment Not on file documented as of this encounter Visit Diagnoses Not on filedocumented in this encounter
--- OUTSIDE RECORDS SUMMARY | 2025-06-08 08:50 | XMS_ITS | Encounter Summary ---
Author Organization [employer] ([place], [place], [place], [place]) Address [address] [place] [address] Care Team Providers Care Blocker Polishing Name Role Phone Unavailable Primary Care Provider Unavailabl e Encounter Details Date Type Department Care Team (Late st Contact Info) Description 10/29/2020 Transcribed Document [facility] [place] Medicine Formerly [facility] [place] [address] ProviderFarhan MD [address] [place] [address] Social History Tobacco Use Types [...] - Farhan ProviderMD - 10/29/2020 8:39 AM CLOTH GRADER SUPERVISOR [facility] Main OR IntraOp Summary Primary Physician: ADDIE VELIZ MD-SNU Finalized Date/Time: 10/30/20 16:24:05 Pt. Name: FRANSISCO CRAVEN/Sex: 1960 Male Med Rec #: [id number] Physician: ADDIE VELIZ MD-SNU Financial #: [id number] Pt. Type: I Room/Bed: [facility]/ Admit/Disch: 10/29/20 12:20:00 - Institution: [facility] IntraOp Case Attendance Entry 1 Entry 2 Entry 3 Case Attendee ADDIE VELIZ MD-SNU WASSON, SANDRA D, RN CLARI NORRIS RN Role Performed Surgeon/Proceduralist, Sorting Cows Worker, First Sorting Cows Worker, Second First Time In 10/29/20 08:13:00 10/29/20 [...] ASHLEY, APRN Role Performed Scrub, First Physician assistant sales center manager CORE SETTER/Nurse Precipitation Equipment Tender Time In 10/29/20 08:13:00 10/29/20 08:13:00 10/29/20 [...] OTHER, ATTENDEE #1 ROCIO ALCALA RN Diagnostic Director Telecommunications Role Performed Nuclear Weapons Specialist Vendor Sorting Cows Worker, Second Time In 10/29/20 08:13:00 10/29/20 08:13:00 [...] Case Attendee PROMISE ZAMORANO Sawyer, Susan, DAVID-GENI Reporting Specialist Role Performed CORE SETTER/Nurse Precipitation Equipment Tender Nuclear Weapons Specialist Time In 10/29/20 09:43:00 10/29/20 09:44:00 Time Out 10/29/20 09:55:00 10/29/20 10:14:00 Procedure Lumbar Fusion Posterior Lumbar Fusion Posterior 3 Level 3 Level Other Attendee CORE SETTER BREAK RELIEF RT BREAK RELIEF Superficial Wound Closed By: Last Modified By: TAE HERNANDEZ, TAE BARRIOS, RN 10/29/20 09:44:46 10/29/20 09:44:46 [facility] IntraOp Case Attendance Audit 10/29/20 10:35:34 Senior Storage Engineer: WASSONSY Modifier: WASSONSY 1 <+> Time Out [...] Lumbar Fusion Posterior 3 Level 10/29/20 10:19:58 Senior Storage Engineer: WASSONSY Modifier: WASSONSY 7 <-> Time Out 10/29/20 09:44:00 7 <*> Procedure Lumbar Fusion Posterior 3 Level 11 <+> Time Out 11 <*> Procedure Lumbar Fusion Posterior 3 Level 10/29/20 10:11:32 Senior Storage Engineer: WASSONSY Modifier: WASSONSY 7 <+> Time Out 7 <*> Procedure Lumbar Fusion Posterior 3 Level 10/29/20 09:55:51 Senior Storage Engineer: WASSONSY Modifier: WASSONSY 10 <*> Time Out 10/29/20 10:03:00 10 <*> Procedure Lumbar Fusion Posterior 3 Level 10/29/20 09:44:46 Senior Storage Engineer: WASSONSY Modifier: WASSONSY <+> 10 Case Attendee <+> 10 Role Performed <+> 10 Time In <+> 10 Time Out <+> 10 Procedure <+> 10 Other Attendee <+> 11 Case Attendee <+> 11 Role Performed <+> 11 Time In <+> 11 Procedure <+> 11 Other Attendee 10/29/20 08:40:39 Senior Storage Engineer: WASSONSY Modifier: WASSONSY <+> 9 Case Attendee <+> 9 Role Performed <+> 9 Time In <+> 9 Time Out <+> 9 Procedure 10/29/20 08:39:35 Senior Storage Engineer: WASSONSY Modifier: WASSONSY 1 <*> Procedure Lumbar [...] Lumbar Fusion Posterior 3 Level 10/29/20 08:31:47 Senior Storage Engineer: WASSONSY Modifier: WASSONSY 1 <+> Time In [...] <+> 8 Procedure <+> 8 Other Attendee [facility] IntraOp Case Times Entry 1 Patient In Room Time 10/29/20 08:13:00 Out Room Time 10/29/20 10:35:00 Anesthesia Start Time 10/29/20 08:13:00 Stop Time 10/29/20 10:35:00 Surgery / Procedure Times Start Time 10/29/20 08:39:00 Stop Time 10/29/20 10:27:00 Last Modified By: TAE HERNANDEZ RN 10/29/20 10:28:15 [facility] IntraOp Case Times Audit 10/29/20 10:35:30 Senior Storage Engineer: WASSONSY Modifier: WASSONSY <+> 1 Out Room Time <+> 1 Stop Time 10/29/20 10:28:15 Senior Storage Engineer: WASSONSY Modifier: WASSONSY <+> 1 Stop Time 10/29/20 08:39:38 Senior Storage Engineer: WASSONSY Modifier: WASSONSY <+> 1 Start Time [facility] IntraOp Cautery Entry 1 Entry 2 ESU Identification Cautery Type Monopolar ESU BiPolar ESU Cautery Type Comments [place] Number [id number] ID Type Hospital Number Hospital Number Cautery [...] SANDRA D, RN 10/29/20 08:47:23 10/29/20 08:47:23 [facility] IntraOp Cautery Audit 10/29/20 08:49:38 Senior Storage Engineer: WASSONSY Modifier: WASSONSY 1 <+> Grounding Pad Site 1 <*> Grounding Pad Applied By TAE HERNANDEZ RN [facility] IntraOp Communication Entry 1 Communication To Family/Significant other Comment START Communication By ROCIO ALCALA RN Date and Time 10/29/20 08:40:00 Last Modified By: TAE HERNANDEZ RN 10/29/20 08:40:48 [facility] IntraOp Counts Verification Entry 1 Entry 2 [...] [facility] IntraOp Counts Verification Audit 10/29/20 10:20:15 Senior Storage Engineer: WASSONSY Modifier: WASSONSY <+> 2 Procedure <+> 2 Count Type <+> 2 Counts Verification Sequence <+> 2 Count Results <+> 2 Count Performed By (Scrub) <+> 2 Count Performed By (RN) [facility] IntraOp Counts Final Entry 1 Procedure Lumbar Fusion Posterior 3 Level Final Count Info Count Type Sponge, Sharps, Miscellaneous Counts Verification Skin Closure/end of Sequence procedure Count Results Correct, surgeon notified Counts Performed By Count Performed By RAFAEL HAAS ST (Scrub) Count Performed By CLARI NORRIS RN (RN) Last Modified By: TAE HERNANDEZ RN 10/29/20 10:24:34 [facility] IntraOp Cultures and Spec Summary Entry 1 Cultrures and Specimens Specimen Ordered: Yes Test(s) Routine/Path-Lab Requested/Final Disposition Last Modified By: TAE HERNANDEZ RN 10/29/20 09:15:02 General Comments: A. EXPLANTED HARDWARE [facility] IntraOp Delays Entry 1 Delay Reason Surgeon late - did not call Duration 13 Minute(s) Last Modified By: TAE HERNANDEZ RN 10/29/20 08:50:02 [facility] IntraOp Departure from OR Entry 1 Integumentary Assessment Integumentary WDL Assessment WDL Transfer/Handoff Transfer to PACU Phase I Handoff Method Phone call Handoff Reported to Gabo Lim RN Post-op Transport Stretcher/Marilyn Via Patient Transport KAREN PEREA, Accompanied by MARY HERNANDEZ MEGHAN, PA Last Modified By: TAE HERNANDEZ RN 10/29/20 10:12:58 [facility] IntraOp Departure from OR Audit 10/29/20 10:12:58 Senior Storage Engineer: WASSONSY Modifier: WASSONSY <+> 1 Handoff Reported to 10/29/20 08:50:26 Senior Storage Engineer: WASSONSY Modifier: WASSONSY 1 <*> Post-op Transport Via Bed (including specialty) [facility] IntraOp Drains and Tubes Entry 1 Device Type Alcon Engel round drain Size 15 FR Drain/Tube Activity Inserted Drain/Tube Suction Bulb Drain/Tube Drainage Serosanguineous Device Location OP SITE Method of Drainage Compression Last Modified By: TAE HERNANDEZ RN 10/29/20 10:09:39 [facility] IntraOp Dressing and Packing Entry 1 Type Dressing Location back Wound Dressing Item Other Applied By CIRO HERNANDEZ PA Other Comments NEOSPORIN OINTMENT, COVADERMS Last Modified By: TAE HERNANDEZ RN 10/29/20 09:41:56 [facility] IntraOp Fire Risk Assessment Entry 1 Fire Info Surgical Site or 0- No Incision Above the Xyphoid Open O2 Source 0- No (Mask or Cannula) Available Ignition 1- Yes (ESU, Laser, Light Source) Fire Risk 1 Assessment Score Fire Score Fire Risk Yes Assessment Complete Fire Risk TAE HERNANDEZ linotype mechanic Verified By Fire Risk 10/29/20 08:42:00 Assessment Verified Date/Time Fire Risk Standard Fire Yes Safety Precautions Followed Last Modified By: TAE HERNANDEZ RN 10/29/20 08:42:30 [facility] IntraOp General Case Field Geologist 1 Case Information OR OR 10 [facility] Case Level 1 Room Verified Yes Wound Class I - Clean Specialty SN Neurosurgery Anesthesia Type General ASA Class 3 Diagnosis Preop Diagnosis LUMBAR SPONDYLOLISTHESIS Postop Same As Preop No Postop Diagnosis PLEASE SEE MD NOTES. Last Modified By: TAE HERNANDEZ RN 10/29/20 08:45:22 [facility] IntraOp General Case Data Audit 10/29/20 08:51:32 Senior Storage Engineer: WASSONSY Modifier: WASSONSY 1 <*> Preop Diagnosis LUMBAR STENOSIS 10/29/20 08:46:36 Senior Storage Engineer: WASSONSY Modifier: WASSONSY <+> 1 Preop Diagnosis [facility] IntraOp Implant Log Entry 1 Entry 2 Entry 3 Type Tissue Implant Implant (Synthetic) Implant (Synthetic) (Biologic) Implant Log Implant Type Hardware Hardware Tissue Implant Type Bone Implant BONE VIVIGEN FORMABLE SPACR OPAL-RSLV SCR JEREMIAS FIX Identification CELL [id number] Description Implant Quantity 1 2 4 Implant Site OP SITE OP SITE OP SITE Implant Identification Model Number Implant [id number] Identification Serial Number Implant Identification Lot Number Implant Lifenet:Lifenet Synthes:Synthes J&J:Depuy:Depuy Spine Identification Transplant Srv Usa:Spine Training Designer Name: Implant [id number] Identification Catalog Number Implant Size Implant Has an Yes Expiration Date Implant Expiration 09/30/21 Date Wasted Radioactive Material Time Implanted Tissue Implant Continue for Tissue Implant Documentation Tissue Identification Number Graft Prep Per Training Designer Instructions: Tissue Preparation Method: Reconstitution Solution: Reconstitution Solution Lot Number Reconstitution Solution Expiration Date: Thawing Solution Thawing Solution Lot Number Thawing Solution Expiration Date Preparation Materials, Other Preparation Materials, Other Lot Number Preparation Materials, Other Expiration Date Tissue Prepared/Processed By Training Designer Paperwork Completed Implant Type Comment Last Modified By: TAE HERNANDEZ, TAE BARRIOS RN WASSON, SANDRA D, RN 10/29/20 09:41:23 10/29/20 10:03:44 10/29/20 10:03:44 Entry 4 Entry 5 Entry 6 Type Implant (Synthetic) Implant (Synthetic) Implant (Synthetic) Implant Log Implant Type Hardware Hardware Hardware Tissue Implant Type Implant MIS FELA PLY SCRW SET LENNOX PRE LOAD [id number] LENNOX PRE LOAD [id number] Identification [id number] Description Implant Quantity 6 1 1 Implant Site OP SITE OP SITE OP SITE Implant Identification Model Number Implant Identification Serial Number Implant Identification Lot Number Implant J&J:Depuy:Depuy Spine J&J:Depuy:Depuy Spine J&J:Depuy:Depuy Spine Identification Training Designer Name: Implant [id number] Identification Catalog Number Implant Size Implant Has an Expiration Date Implant Expiration Date Wasted Radioactive Material Time Implanted Tissue Implant Continue for Tissue Implant Documentation Tissue Identification Number Graft Prep Per Training Designer Instructions: Tissue Preparation Method: Reconstitution Solution: Reconstitution Solution Lot Number Reconstitution Solution Expiration Date: Thawing Solution Thawing Solution Lot Number Thawing Solution Expiration Date Preparation Materials, Other Preparation Materials, Other Lot Number Preparation Materials, Other Expiration Date Tissue Prepared/Processed By Training Designer Paperwork Completed Implant Type Comment Last Modified By: TAE HERNANDEZ RN WASSON, SANDRA D RN TAE HERNANDEZ RN 10/29/20 10:03:44 10/29/20 10:03:44 10/29/20 10:03:44 [facility] IntraOp Implant Log Audit 10/29/20 10:03:44 Senior Storage Engineer: DAVIDARLEN Modifier: WASSONSY <+> 2 Implant Identification Description <+> 2 Implant Identification Training Designer Name: <+> 2 Implant Site <+> 2 Implant Quantity <+> 2 Implant Identification Catalog Number <+> 2 Implant Type <+> 2 Type <+> 3 Implant Identification Description <+> 3 Implant Identification Training Designer Name: <+> 3 Implant Site <+> 3 Implant Quantity <+> 3 Implant Identification Catalog Number <+> 3 Implant Type <+> 3 Type <+> 4 Implant Identification Description <+> 4 Implant Identification Training Designer Name: <+> 4 Implant Site <+> 4 Implant Quantity <+> 4 Implant Identification Catalog Number <+> 4 Implant Type <+> 4 Type <+> 5 Implant Identification Description <+> 5 Implant Identification Training Designer Name: <+> 5 Implant Site <+> 5 Implant Quantity <+> 5 Implant Identification Catalog Number <+> 5 Implant Type <+> 5 Type <+> 6 Implant Identification Description <+> 6 Implant Identification Training Designer Name: <+> 6 Implant Site <+> 6 Implant Quantity <+> 6 Implant Identification Catalog Number <+> 6 Implant Type <+> 6 Type [facility] IntraOp Intraoperative Assessment Entry 1 Handoff Method [...] Modified By: TAE HERNANDEZ RN 10/29/20 08:51:48 [facility] IntraOp Intraoperative Assessment Audit 10/29/20 08:51:48 Senior Storage Engineer: HOPEIANARLEN Modifier: DAVIDSY 1 <*> Skin Assessment Verified Yes 1 <*> Handoff Method Bedside/Face to face [facility] IntraOp Intraoperative Equipment Entry 1 Type Equipment Equipment Equipment Abelardo Suction System ID Number [id number] Setting 200 MM HG Intraop Monitoring Electrocardiogram Five lead placement (ECG) Electrode Placement Blood Pressure Non-Invasive BP Device Source Blood Pressure Arm, right upper Location Pulse Oximeter Hand, left Probe Site Antiembolic Devices Antiembolic Devices Sequential compression device, knee high Antiembolic Device Bilateral Location Antiembolic Device [id number] ID Number Antiembolic Device standard Setting Scopes Photo/Video Documentation Photo No Video No Last Modified By: TAE HERNANDEZ RN 10/29/20 08:46:20 [facility] IntraOp Intraoperative Equipment Audit 10/29/20 08:52:26 Senior Storage Engineer: WASSONSY Modifier: WASSONSY 1 <+> ID Number 1 <*> Setting 200 1 <+> Electrocardiogram (ECG) Electrode Placement 1 <+> Blood Pressure Location 1 <+> Pulse Oximeter Probe Site 1 <+> Blood Pressure Source 1 <+> Antiembolic Device ID Number [facility] IntraOp Medication Admin Entry 1 Entry 2 Entry 3 Medication/Irrigant thrombin 5000units SPNG SURGFOAM SEALR AQUAMANTYS BIPLR topical powder - [id number] Combo Med List Time Administered Route of topical TOPICAL OTHER Administration Dose Dose 5000 1 Unit of Measure units pkt Volume qs Administered By ADDIE VELIZ MD-ADDIE PASCUAL MD-ADDIE PASCUAL MD-SNNegrita Procedure Irrigation Irrigant Volume In Irrigant Volume Out Last Modified By: TAE HERNANDEZ, TAE BARRIOS, TAE BARRIOS RN 10/29/20 08:53:36 10/29/20 08:53:36 10/29/20 08:53:36 Entry 4 Medication/Irrigant Neosporin 15Gm ointment - [id number] Combo Med List Time Administered Route of TOPICAL Administration Dose Dose 1 Unit of Measure pkt Volume Administered By CIRO HERNANDEZ PA Procedure Irrigation Irrigant Volume In Irrigant Volume Out Last Modified By: TAE HERNANDEZ RN 10/29/20 08:53:36 [facility] IntraOp Medication Admin Audit 10/29/20 08:53:36 Senior Storage Engineer: WASSONSY Modifier: WASSONSY 1 <*> Medication/Irrigant thrombin 5000units topical powder - [id number] <+> 2 Medication/Irrigant <+> 2 Route of Administration <+> 2 Administered By <+> 2 Dose <+> 2 Unit of Measure <+> 3 Medication/Irrigant <+> 3 Route of Administration <+> 3 Administered By <+> 4 Medication/Irrigant <+> 4 Route of Administration <+> 4 Administered By <+> 4 Dose <+> 4 Unit of Measure [facility] IntraOp Patient Positioning Entry 1 Procedure Lumbar [...] Modified By: TAE HERNANDEZ RN 10/29/20 09:05:55 [facility] IntraOp Sign In Entry 1 Patient, Site, [...] Modified By: TAE HERNANDEZ RN 10/29/20 08:54:11 [facility] IntraOp Sign In Audit 10/29/20 08:54:11 Senior Storage Engineer: HOPEIANSY Modifier: WASSONSY 1 <*> Surgical Site Marked by person Yes performing procedure 1 <*> Difficult Airway/Aspiration Risk No 1 <*> Blood Loss Risk No 1 <*> Blood Identifiers Verified Per Not applicable Policy [facility] IntraOp Sign Out Entry 1 RN Confirmation [...] Modified By: TAE HERNANDEZ RN 10/29/20 09:06:53 [facility] IntraOp Sign Out Audit 10/29/20 10:35:47 Senior Storage Engineer: MYAH Modifier: WASIANSY <+> 1 RN Sign Out Signature Date/Time [facility] IntraOp Skin Prep Entry 1 Procedure Lumbar Fusion Posterior 3 Level Prescribed Yes Pre-Surgical Prep Completed Prep Area back Intraop Prep Integumentary WDL Assessment WDL Prep Agents DuraPrep Prep by TAE HERNANDEZ, RN Hair Removal Methods No hair removal performed Last Modified By: TAE HERNANDEZ RN 10/29/20 08:45:47 [facility] IntraOp Surgical Procedures Entry 1 Procedure Lumbar Fusion Posterior 3 Level Additional (L3-5 PLIF USING AIRO) Procedure Description Primary Procedure Yes Primary Surgeon ADDIE VELIZ MD-SNU Start 10/29/20 08:39:00 Stop 10/29/20 10:27:00 Anesthesia Type General Specialty SN Neurosurgery Wound Class I - Clean Last Modified By: TAE HERNANDEZ RN 10/29/20 09:08:03 General Comments: CLLINDA [facility] IntraOp Surgical Procedures Audit 10/29/20 10:28:18 Senior Storage Engineer: MYAH Modifier: WASSONSY 1 <*> Stop [facility] IntraOp Temp Regulation Devices Entry 1 Temp Regulation Temperature Forced Air Warming Regulation Device device Temperature 15755 Regulation Device Serial/Unit Number Temperature Upper body Regulation Site Temperature Device 43 C Setting Temperature KAREN PEREA APRN Regulation Device Applied by Last Modified By: TAE HERNANDEZ RN 10/29/20 08:46:05 [facility] IntraOp Temp Regulation Devices Audit 10/29/20 09:06:09 Senior Storage Engineer: MYAH Modifier: MYAH <+> 1 Temperature Regulation Device Serial/Unit Number <+> 1 Temperature Device Setting [facility] IntraOP Time Out Entry 1 Procedure to [...] Modified By: TAE HERNANDEZ RN 10/29/20 08:44:19 [facility] IntraOp X-Ray and Images Entry 1 X-Ray/Imaging Type Other Fluoroscopy Type Other Site back Baker Paint Name Delma Escobedo, Diagnostic Director Telecommunications Protective Devices Yes Used X-Ray and Imaging brainlab intraoperative Comment ct scanner Last Modified By: TAE HERNANDEZ RN 10/29/20 08:46:47 [facility] IntraOp X-Ray and Images Audit 10/29/20 09:06:27 Senior Storage Engineer: MYAH Modifier: MYAH <+> 1 Baker [employer] Name Case Comments <None> Finalized By: DENNYS SANTO Document Signatures Signed By: TAE HERNANDEZ RN 10/29/20 10:35 DENNYS SANTO 10/30/20 16:24 Unfinalized History Date/Time Username Reason for Unfinalizing Freetext Reason for Unfinalizing 10/30/20 16:22 [email or web address] Correct Billing Electronically signed by Kailey [facility] Conversion Cardiology Coordinator Cerner at 02/08/2023 12:31 PM CDT documented in this encounter Plan of Treatment Not on file documented as of this encounter Visit Diagnoses Not on filedocumented in this encounter
--- OUTSIDE RECORDS SUMMARY | 2025-06-08 08:50 | XMS_ITS | Encounter Summary ---
Author Organization [employer] ([place], [place], [place], [place]) Address [address] [place] [address] Care Team Providers Care Delivery Tech Name Role Phone Unavailable Primary Care Provider Unavailabl e Encounter Details Date Type Department Care Team (Late st Contact Info) Description 10/29/2020 Transcribed Document [facility] [place] [address] [place] [address] ProviderFarhan MD [address] [place] [address] Social History Tobacco Use Types [...] - Farhan ProviderMD - 10/29/2020 8:39 AM TECHNICAL EDITOR [facility] Main OR Preop Summary Primary Physician: ADDIE VELIZ MD-SNU Finalized Date/Time: 10/29/20 12:44:39 Pt. Name: FRANSISCO CRAVEN/Sex: 1960 Male Med Rec #: [id number] Physician: ADDIE VELIZ MD-TANVIR Financial #: [id number] Pt. Type: I Room/Bed: 647/1 Admit/Disch: 10/29/20 12:20:00 - Institution: [facility] PreOp Case Times Entry 1 In Preop 10/29/20 06:05:00 Ready for Holding n/a Room Patient Ready for 10/29/20 07:31:00 Surgery Patient Out of Preop 10/29/20 08:11:00 Patient Out of n/a Holding Room Last Modified By: PEDRO Briceño RN 10/29/20 12:44:37 [facility] PreOp Case Times Audit 10/29/20 12:44:37 Director Of Academic Support: CHRISTY Modifier: WILSONDL <+> 1 Patient Out of Preop 10/29/20 07:31:08 Director Of Academic Support: CHRISTY Modifier: WILSONDL <+> 1 Patient Ready for Surgery Finalized By: PEDRO Briceño, RN Document Signatures Signed By: PEDRO Briceño RN 10/29/20 12:44 Electronically signed by Kailey [facility] Conversion Cage Maker Machine Cerner at 02/08/2023 12:23 PM CDT documented in this encounter Plan of Treatment Not on file documented as of this encounter Visit Diagnoses Not on filedocumented in this encounter"
--- OUTSIDE RECORDS SUMMARY | 2025-06-08 08:50 | XMS_ITS | Encounter Summary ---
Author Organization [employer] ([place], [place], [place], [place]) Address [address] [place] [address] Care Team Providers Care Lithoplate Maker Name Role Phone Unavailable Primary Care Provider Unavailabl e Encounter Details Date Type Department Care Team (Late st Contact Info) Description 11/01/2020 Transcribed Document [facility] [place] [address] [place] [address] ProviderFarhan MD [address] [place] [address] Social History Tobacco Use Types [...] - Historical ProviderMD - 11/01/2020 3:33 PM SEATING UPHOLSTERER UM Authorization Entered On: 11/01/2020 15:33 EST Performed On: 11/01/2020 15:33 EST by TAQUERIA AGRAWAL Mkt Turbo Generator Oiler-Utilization Mgt Primary Insurance Authorization Authorization and Policy Numbers : Insurance 1 Health Plan: [employer] PPO Policy Number: [id number] Authorization Number: Insurance Primary Name : [employer] [id number] Authorization Status-Primary : Admit approved Auth/Referral Contact Name-Primary : Alfredo R Reference Number-Primary : [id number] Authorization Number-Primary : [id number] Number of Days Authorized-Primary : 5 Day(s) [...] or availity as of yet (DERICK SHIPMAN, Wool Scourer 10/28/2020 12:39) TAQUERIA AGRAWAL Mkt Turbo Generator Oiler-Utilization Mgt - 11/01/2020 15:33 EST Electronically signed by Kailey [facility] Conversion Floor Manager Cerner at 02/08/2023 12:13 PM CDT documented in this encounter Plan of Treatment Not on file documented as of this encounter Visit Diagnoses Not on filedocumented in this encounter
--- OUTSIDE RECORDS SUMMARY | 2025-06-08 08:50 | XMS_ITS | Encounter Summary ---
Author Organization [employer] ([place], [place], [place]) Address [address] [place] [address] Care Team Providers Care Interrelated Special Education Teacher Name Role Phone Unavailable Primary Care Provider Unavailabl e Encounter Details Date Type Department Care Team (Late st Contact Info) Description 10/29/2020 Transcribed Document [facility] [place] [facility] [place] [address] ProviderFarhan MD [address] [place] [address] Social History Tobacco Use Types [...] - Historical ProviderMD - 10/29/2020 10:00 PM ACTING INSTRUCTOR Pain Assessment Entered On: 10/30/2020 1:23 EST [...]
--- OUTSIDE RECORDS SUMMARY | 2025-06-08 08:50 | XMS_ITS | Encounter Summary ---
Author Organization [facility] Address [address] [place] [address] Care Team Providers Care Marine Engine Machinist Apprentice Name Role Phone Ministerio Rosas MD Unavailable Khadijah Dolan APRN Primary Care Provider +1- [phone] Reason for Visit * Reason Onset Date Comments Confirmed appt 06/03/2025 Encounter Details Date Type Department Care Team (Late st Contact Info) Description 06/03/2025 Telephone [facility] [address] [place] [address] Ministerio Rosas MD [address] [place] [address] Confirmed appt Social History Tobacco Use Types Packs/Day Years [...] encounter Miscellaneous Notes * Telephone Encounter - Jennifer Wilcox - 06/03/2025 11:[address] and ov times with patient on 06/23 documented in this encounter Plan of Treatment Upcoming Encounters Date Type Department Care Team (Late st Contact Info) Description 06/23/2025 8:40 AM EDT Appointment [facility] CT [address]nd [place] [address] 06/23/2025 10:00 AM EDT [facility] [address] [place] [address] Ministerio Rosas MD [address] [place] [address] documented as of this encounter [...] documented as of this encounter Care Teams Marine Engine Machinist Apprentice Relationship Specialty Start Date End Date Khadijah Dolan APRN [address] [place] [address] PCP - General 05/04/25 Ministerio Rosas MD [address] [place] [address] Surgeon Urology 09/23/24 documented as of this encounter
--- OUTSIDE RECORDS SUMMARY | 2025-06-08 08:50 | XMS_ITS | Encounter Summary ---
Author Organization [facility] ([place], [place], [place], [place]) Address [address] [place] [address] Care Team Providers Care Paper Twister Name Role Phone Unavailable Primary Care Provider Unavailbrianna e Encounter Details Date Type Department Care Team (Late st Contact Info) Description 10/31/2020 Transcribed Document [facility] Family Medicine [address] [place] [address] ProviderFarhan MD [address] [place] [address] Social History Tobacco Use Types [...] - Historical ProviderMD - 10/31/2020 5:00 AM ELECTRON BEAM PHOTO MASK MAKER Chart Check - Review Order Profile Entered On: 10/31/2020 6:54 EST Performed On: 10/31/2020 5:00 EST by Rebeca Espino RN Chart Check Powerplans Initiated/Discontinued as Appropriate : Yes All Active Orders Reviewed : Yes Rebeca Espino RN - 10/31/2020 6:54 EST Electronically signed by Ka[facility] Conversion Accounts Payable Representative Mario at 02/08/2023 12:43 PM CDT documented in this encounter Plan of Treatment Not on file documented as of this encounter Visit Diagnoses Not on filedocumented in this encounter
--- OUTSIDE RECORDS SUMMARY | 2025-06-08 08:50 | XMS_ITS | Encounter Summary ---
Author Organization [facility] ([place], [place], [place], [place]) Address [address] [place] [address] Care Team Providers Care Financial Advisor Trainee Name Role Phone Unavailable Primary Care Provider Unavailabl e Encounter Details Date Type Department Care Team (Late st Contact Info) Description 10/30/2020 Transcribed Document [facility] Family Medicine [facility] [place] [address] ProviderFarhan MD [address] [place] [address] Social History Tobacco Use Types [...] - Farhan ProviderMD - 10/30/2020 2:00 PM COLD PRESS OPERATOR Pain Assessment Entered On: 10/30/2020 20:02 [...]
--- OUTSIDE RECORDS SUMMARY | 2025-06-08 08:50 | XMS_ITS | Encounter Summary ---
Author Organization [employer] ([place], [place], [place], [place]) Address [address] [place] [address] Care Team Providers Care Car Servicer Name Role Phone Unavailable Primary Care Provider Unavailabl e Encounter Details Date Type Department Care Team (Late st Contact Info) Description 10/30/2020 Transcribed Document [facility] Family Medicine [address] [place] [address] ProviderFarhan MD [address] [place] [address] Social History Tobacco Use Types [...] - Farhan ProviderMD - 10/30/2020 6:00 AM CAR FERRY CAPTAIN Pain Assessment Entered On: 10/30/2020 20:01 EST [...]
--- OUTSIDE RECORDS SUMMARY | 2025-06-08 08:50 | XMS_ITS | Patient Health Record ---
Author Organization [facility] Address [address] [place] [address] Care Team Providers Care Cooling Pan Tender Name Role Phone Seminary -Billing Specialist David DUKE Unavailable Unavailable Allergies Allergen (clinical [...] W/U Status Risk Notes Problem Rheumatoid arthritis (24017058) Rheumatoid arthritis, unspecified (M06.9) Active confirmed Problem Osteoarthritis (381134735) Unspecified osteoarthritis, unspecified site (M19.90) Active confirmed Problem Solitary sacroiliitis (771965763) Sacroiliitis, not elsewhere classified (M46.1) Active confirmed Problem Lumbosacral spondylosis without myelopathy (45802102) Spondylosis without myelopathy or radiculopathy, lumbar region (M47.816) Active confirmed Problem Lumbar radiculopathy (215249432) Radiculopathy, lumbar region (M54.16) Active confirmed Problem Enthesopathy of hip region (39700036) Trochanteric bursitis, unspecified hip (M70.60) Active confirmed Problem Long-term current use of drug therapy (810735350) Other retirement (current) drug therapy (Z79.899) Active confirmed Plan Of Treatment Pending Test Test Name Order Date Urine Test LCMS Definitive 11/02/2023 Insurance Providers Payer Name Payer Address Payer Phone Subscriber Number Group Number Insured Name Patient Relationship to Insured Coverage Start Date Coverage End Date [employer] HMO [id number] [address] [address] [place] [address] [phone] [id number] Noe Silvestre Self - patient is the [...] by unknown Surgical History Surgery Date(Month/Year) appendectomy/ [facility] /unknow n 09/1997 carpal tunnel release [facility] /unknown 1990s [facility] finger[facility] nown right elbow/ [facility] /unknown unknown kidney/ [facility] (OP) 2016 lumbar spine fusion/ [facility]/ Dr. Green 3 day stay 03/2014, shoulder/ Bicep/ Dr. Wu/ [facility] 01/2016 [facility] Lumbar spine [place] 3 days stay 20 21 Hospitalization History Reason Date(Month/Year)
--- OUTSIDE RECORDS SUMMARY | 2025-06-08 08:50 | XMS_ITS | Encounter Summary ---
Author Organization [employer] ([place], [place], [place], [place]) Address [address] [place] [address] Care Team Providers Care Microbiology Soil Scientist Name Role Phone Unavailable Primary Care Provider Unavailabl e Encounter Details Date Type Department Care Team (Late st Contact Info) Description 10/29/2020 Transcribed Document [facility] [place] [facility] [place] [address] ProviderFarhan MD [address] [place] [address] Social History Tobacco Use Types [...] - Historical ProviderMD - 10/29/2020 10:34 AM PATHOLOGY SUPERVISOR Evaluation, Physical Therapy Entered On: 10/29/2020 15:22 [...] KATINA LIANG, PT - 10/29/2020 15:23 EST Resident Service Coordinator Goals Mobility/Bed Mobility LTG PT Grid Goal [...] KATINA LIANG, PT - 10/29/2020 15:23 EST [place] PT Charges PT Therap. Exercise 15 min : 1 PT Eval Low Complexity : 1 KATINA LIANG, PT - 10/29/2020 15:23 EST Electronically signed by [facility], [facility] Conversion Local Superintendent Vitorner at 02/08/2023 12:22 PM CDT documented in this encounter Plan of Treatment Not on file documented as of this encounter Visit Diagnoses Not on filedocumented in this encounter
--- OUTSIDE RECORDS SUMMARY | 2025-06-08 08:50 | XMS_ITS | Encounter Summary ---
Author Organization [employer] ([place], [place], [place], [place]) Address [address] [place] [address] Care Team Providers Care Wrap Turner Name Role Phone Unavailable Primary Care Provider Unavailabl e Encounter Details Date Type Department Care Team (Late st Contact Info) Description 10/31/2020 Transcribed Document [facility] Family Medicine [address] [place] [address] ProviderFarhan MD [address] [place] [address] Social History Tobacco Use Types [...] - Farhan ProviderMD - 10/31/2020 2:52 PM FORESTRY TECHNICIAN [facility] [place] [address] FRANSISCO CRAVEN :1960 Visit Time:10/29/2020 Your [...] 1) tramadol (Ultram)--this will be replaced by Deal (hydrocodone-acetaminophen) call MD for fever greater than 101 degrees for 24 hours; increased pain,redness or swelling and/or drainage after 5 days Follow-Up Appointments Follow Up with ADDIE VELIZ When Within 2 weeks Nirali hylton Where: [address] [place] [address] [address] [place] [address] Verdiem (1) Medications What How Much When Instructions Next Dose acetaminophen-hydrocodone (Deal 10 mg-325 mg oral tablet) 1 Tablet(s) [...] these instructions at home: Medicines ??? Take mxiz-tol-wgquaqx and prescription medicines only as told by [...] cannot use soap and water, use hand trailer truck driver. ? Change your bandage as told by [...] your pee (urine) pale yellow. ? Take ypjr-urf-wdqnear or prescription medicines. ? Eat foods that [...] 02/01/2012 Document Revised: 01/29/2020 Document Reviewed: 01/22/2018 [employer]. [employer] Patient Education ?? 2020 Lovli. acetaminophen and hydrocodone (a SEET a MIN oh fen and michael droe KOE done) Hycet, Lorcet, Deal, Verdrocet, Vicodin, Xodol, Zamicet What is the [...] may report side effects to FDA at 2-517-UNX-1088. What other drugs will affect acetaminophen and [...] affect acetaminophen and hydrocodone, including prescription and uezx-ywp-fvwzqjb medicines, vitamins, and herbal products. Not all [...] to ensure that the information provided by [employer]. ('[employer]') is accurate, up-to-date, and complete, but no guarantee is made to that effect. Drug information contained herein may be time sensitive. [employer] information has been compiled for use by healthcare practitioners and consumers in the [place] and therefore [employer] does not warrant that uses outside of the [place] are appropriate, unless specifically indicated otherwise. [employer] drug information does not endorse drugs, diagnose patients or recommend therapy. [employer] drug information is an informational resource designed [...] with your doctor, nurse or pharmacist. Copyright 6131-1842 [employer]. Version: 16.01. Revision Date: 11/12/2019. Emergency Awareness [...] Assistance with quitting is available by contacting 2-758-DKUP-NOW. This is a free resource providing counseling, [...] range between ( 0.0 and 7.0 ) [place] #: 1.07 K/uL -- Normal range between ( 0.16 and 1.00 ) [place] #: 0.03 x10(3)/uL -- Normal range between ( 0.00 and 0.80 ) [place] %: 7.3 % -- Normal range between [...] ) Urine Bilirubin Dipstick: Negative Urine Specific [place]: *1.028 -- Normal range between ( 1.005 [...] was given the opportunity to ask questions. Patient/Tank Filler Name: Patient/Tank Filler Signature: Relationship to Patient: Clinician/Hospital Tank Filler Signature: Date: Electronically signed by Kailey, Louis Conversion Internet Marketing Specialist Vitorner at 02/08/2023 12:40 PM CDT documented in this encounter Plan of Treatment Not on file documented as of this encounter Visit Diagnoses Not on filedocumented in this encounter
--- OUTSIDE RECORDS SUMMARY | 2025-06-08 08:51 | XMS_ITS | Clinical Summary ---
Author Organization [facility] ([place], [place], [place], [place]) Address [address] [place] [address] Care Team Providers Care Registry Nurse Name Role Phone Unavailable Primary Care [...] Date Keyon rded Speak language other than Swiss at home Not on file 10/30/2023 Want [...]
--- OUTSIDE RECORDS SUMMARY | 2025-06-08 08:51 | XMS_ITS | Encounter Summary ---
Author Organization [employer] ([place], [place], [place], [place]) Address [address] [place] [address] Care Team Providers Care Abrasive Mixer Helper Name Role Phone Unavailable Primary Care Provider Unavailabl e Encounter Details Date Type Department Care Team (Late st Contact Info) Description 10/31/2020 Transcribed Document [facility] Family Medicine [facility] [place] [address] ProviderFarhan MD [address] [place] [id number] Social History Tobacco Use Types Packs/Day Years [...] - Historical ProviderMD - 10/31/2020 3:22 PM ENERGY CONSERVATION REPRESENTATIVE Discharge Summary, PT Entered On: 10/31/2020 15:23 [...] Chase PHYSICAL THERAPIST - 10/31/2020 15:22 EST Screw Machine Set Up Operator Tool Goals Mobility/Bed Mobility LTG PT Grid Goal [...] Chase PHYSICAL THERAPIST - 10/31/2020 15:22 EST Electronically signed by Louis Bonner Conversion Steam Cleaning Machine Operator Cerner at 02/08/2023 12:11 PM CDT documented in this encounter Plan of Treatment Not on file documented as of this encounter Visit Diagnoses Not on filedocumented in this encounter
--- OUTSIDE RECORDS SUMMARY | 2025-06-08 08:51 | XMS_ITS | Encounter Summary ---
Author Organization [facility] Address [address] [place] [address] Care Team Providers Care Registration Clerk Name Role Phone Nadja Lara MD Primary Care Provider [phone]- [phone] Ministerio Rosas MD Unavailable [phone] Khadijah Dolan APRN Primary Care Provider +1- [phone] Encounter Details Date Type Department Care Team (Late st Contact Info) Description 03/05/2023 Orders Only External Location [address] [place] [address] Yared Salgado MD [address] [place] [address] Social History Tobacco Use Types Packs/Day Years [...] Info) Description 06/23/2025 8:40 AM EDT Appointment [facility] CT [address] [place] [address] 06/23/2025 10:00 AM EDT Office Visit [place] [facility] [address] [place] [address] Ministerio Rosas MD [address] [place] [address] documented as of this encounter Procedures Procedure Name Priority Date/Time Associated Diagnosis Comments CT MSK OUTSIDE IMAGES 03/05/2023 10:31 AM EDT documented in this encounter Results * CT MSK OUTSIDE IMAGES (03/05/2023 10:31 AM EDT) Anatomical Region Laterality Modality Computed Tomogra phy 03/05/2023 10:3 1 AM EDT us Yared Salgado MD IMG CT PROCEDURES Final Result documented in this encounter Visit Diagnoses Not on filedocumented in this encounter Additional Health Concerns Infection Onset Date Last Indicated 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 documented as of this encounter Care Teams Registration Clerk Relationship Specialty Start Date End Date Nadja Lara MD [address] [place] [address] PCP - General 03/04/21 05/03/25 Khadijah Dolan APRN [address] [place] [address] PCP - General 05/04/25 Ministerio Rossa MD [address] [place] [address] Surgeon Urology 09/23/24 documented as of this encounter
--- OUTSIDE RECORDS SUMMARY | 2025-06-08 08:51 | XMS_ITS | Encounter Summary ---
Author Organization [facility] Address [address] [place] [address] Care Team Providers Care Veterinary Laboratory Technician Name Role Phone Nadja Lara MD Primary Care Provider +1- [phone] Ministerio Rosas MD Unavailable [phone] Khadijha Dolan APRN Primary Care Provider +1- [phone] Encounter Details Date Type Department Care Team (Late st Contact Info) Description 05/02/2023 Lab Requisition [facility] [address] [place] [address] Zulay Garcia PA [address] [address] Social History Tobacco Use Types Packs/Day Years [...] Info) Description 06/23/2025 8:40 AM EDT Appointment [facility] [address]nd [place] [address] 06/23/2025 10:00 AM EDT Office Visit [place] [facility] [address] [place] [address] Ministerio Rosas MD [address] [place] [address] documented as of this encounter Visit Diagnoses Not on filedocumented in this encounter Additional Health Concerns Infection Onset Date Last Indicated 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 documented as of this encounter Care Teams Veterinary Laboratory Technician Relationship Specialty Start Date End Date Nadja Lara MD [address] [place], [place] [id number] PCP - General 03/04/21 05/03/25 Khadijah Dolan APRN [address] [place] [address] PCP - General 05/04/25 Ministerio Rosas MD [id number] [place] [address] Surgeon Urology 09/23/24 documented as of this encounter
--- OUTSIDE RECORDS SUMMARY | 2025-06-08 08:51 | XMS_ITS | Encounter Summary ---
Author Organization [facility] Address [address] [place] [address] Care Team Providers Care Failure Analysis Engineer Name Role Phone Nadja Lara MD Primary Care Provider +1- [phone] Ministerio Rosas MD Unavailable [phone] Khadijah Dolan APRN Primary Care Provider +1- [phone] Encounter Details Date Type Department Care Team (Late st Contact Info) Description 05/02/2023 Lab Requisition [facility] [address] [place] [address] Zulay Garcia PA [address] [facility] [address] [place] [address] Right testicular pain Social History Tobacco Use [...] Info) Description 06/23/2025 8:40 AM EDT Appointment [facility] CT [address] [place] [address] 06/23/2025 10:00 AM EDT Office Visit [place] [facility] [address] [place] [address] Ministerio Rosas MD [address] [place] [address] documented as of this encounter Procedures Procedure Name Priority Date/Time Associated Diagnosis Comments SURGICAL PATHOLOGY CONSULT Routine 05/02/2023 2:18 PM EDT Right testicular pain documented in this encounter Results * Surgical Pathology Consult (05/02/2023 2:18 PM EDT) Case Report Sugical Pathology Consult Case: [id number] Authorizing Provider: Zulay Garcia PA Collected: 05/02/20238 Ordering Location: [facility] Lab Received: 05/02/2023 1418 Pathologist: Connor Suarez MD Specimen: Testicle, 05/03/2023 5:33 PM EDT [facility] Final Diagnosis OUTSIDE CASE: COLLECTED ON 03/13/2023. A. TESTICLE AND EPIDIDYMIS, RIGHT, EXCISION: - HYDROCELE B. 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 Received along with a corresponding pathology report from [facility] are 6 slide(s) labeled outside case: collected on 03/13/2023. 05/03/2023 5:33 PM EDT [facility] Note: A resident was involved in the service. I attest I examined the relevant preparations for the specimens and confirmed the diagnosis or interpretation. 05/03/2023 5:33 PM EDT [facility] Tissue Testis structure / Unknown 05/02/2023 2:18 PM EDT 05/02/2023 2:18 PM EDT [facility] PATHOLOGY ORDERABLES Fi nal Result [facility] [address] [place] [address] documented in this encounter Visit Diagnoses Diagnosis Right testicular pain documented in this encounter Additional Health Concerns Infection Onset Date Last Indicated 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 documented as of this encounter Care Teams Failure Analysis Engineer Relationship Specialty Start Date End Date Nadja Lara MD [address] [place], [place] [id number] PCP - General 03/04/21 05/03/25 Khadijah Dolan APRN [address] [place] [address] PCP - General 05/04/25 Ministerio Rosas MD [address] [facility] [address] [place] [address] Surgeon Urology 09/23/24 documented as of this encounter
--- OUTSIDE RECORDS SUMMARY | 2025-06-08 08:51 | XMS_ITS | Encounter Summary ---
Author Organization [employer] ([place], [place], [place], [place]) Address [address] [place] [address] Care Team Providers Care Drawing Box Tender Name Role Phone Unavailable Primary Care Provider Unavailbrianna e Encounter Details Date Type Department Care Team (Late st Contact Info) Description 10/31/2020 Transcribed Document [facility] Family Medicine [facility] [place] [address] ProviderFarhan MD [address] [place] [address] Social History Tobacco Use Types [...] - Historical ProviderMD - 10/31/2020 2:00 AM LADLE BUILDER Pain Assessment Entered On: 10/31/2020 6:55 EST [...] form. Electronically signed by Louis Bonner Conversion Mechanic General Operational Test Cerner at 02/08/2023 12:19 PM CDT documented in this encounter Plan of Treatment Not on file documented as of this encounter Visit Diagnoses Not on filedocumented in this encounter
--- OUTSIDE RECORDS SUMMARY | 2025-06-08 08:51 | XMS_ITS | Encounter Summary ---
Author Organization [employer] ([place], [place], [place], [place]) Address [address] [place] [address] Care Team Providers Care Commodity Manager Name Role Phone Unavailable Primary Care Provider Unavailabl e Encounter Details Date Type Department Care Team (Late st Contact Info) Description 10/31/2020 Transcribed Document [facility] Family Medicine [facility] [place] [address] ProviderFarhan MD [address] [place] [address] Social History Tobacco Use Types [...] - Historical ProviderMD - 10/31/2020 2:36 PM DENIER CONTROL OPERATOR Nursing Discharge Summary Entered On: 10/31/2020 [...] - 10/31/2020 14:36 EST Electronically signed by [facility], [facility] Conversion Supervisor Heat Treating Cerner at 02/08/2023 12:18 PM CDT documented in this encounter Plan of Treatment Not on file documented as of this encounter Visit Diagnoses Not on filedocumented in this encounter
--- OUTSIDE RECORDS SUMMARY | 2025-06-08 08:51 | XMS_ITS | Encounter Summary ---
Author Organization [employer] ([place], [place], [place], [place]) Address [address] [place] [address] Care Team Providers Care Compliance Mgr Name Role Phone Unavailable Primary Care Provider Unavailbrianna e Encounter Details Date Type Department Care Team (Late st Contact Info) Description 10/31/2020 Transcribed Document [facility] [place] [facility] [address] ProviderFarhan MD [address] [place] [address] Social History Tobacco Use [...] - Historical ProviderMD - 10/31/2020 6:00 AM HAIR SPINNING MACHINE OPERATOR Pain Assessment Entered On: 10/31/2020 6:55 EST [...]
--- OUTSIDE RECORDS SUMMARY | 2025-06-08 08:51 | XMS_ITS ---
Author Organization [facility] Address [address] [place] [address] Care Team Providers Care Marine Pilot Name Role Phone Ministerio Rosas MD Unavailable [phone] Khadijah Dolan APRN Primary Care Provider [phone]- [phone] Active Problems Problem Noted Date Diagnosed Date [...] PA (UROLOGY) [facility] [place] [facility] [place] (RNEU BCG) WEEKLY X 6 07/27/2023 09/21/2023 No medications scheduled. Therapy Complete Zulay Garcia PA Lifetime Dose Tracking * Chemical Lifetime Dose Automatic Entry Manual Entr y CTDIvol 432 mGy 432 mGy 0 mGy Radiation (DLP) 1,292 mGy-cm 1,292 mGy-cm 0 mGy-cm
--- OUTSIDE RECORDS SUMMARY | 2025-06-08 08:51 | XMS_ITS | Encounter Summary ---
Author Organization [employer] ([place], [place], [place], [place]) Address [address] [place] [address] Care Team Providers Care Sheet Metal Duct Worker Supervisor Name Role Phone Unavailable Primary Care Provider Unavailabl e Encounter Details Date Type Department Care Team (Late st Contact Info) Description 10/31/2020 Transcribed Document [facility] [place] [address] [place] [address] ProviderFarhan MD [address] [place], [place] [id number] Social History Tobacco Use Types Packs/Day Years [...] - Historical ProviderMD - 10/31/2020 2:36 PM INSTRUCTIONAL FACILITATOR Stroke/Warfarin Instructions Entered On: 10/31/2020 14:36 EST [...]
--- OUTSIDE RECORDS SUMMARY | 2025-06-08 08:51 | XMS_ITS | Encounter Summary ---
Author Organization Healthcare Address [address] [place] [address] Care Team Providers Care Victorian Literature Professor Name Role Phone Nadja Lara MD Primary Care Provider [phone] Ministerio Rosas MD Unavailable [phone] Khadijah Dolan APRN Primary Care Provider [phone] Encounter Details Date Type Department Care Team (Late st Contact Info) Description 05/02/2023 Lab Requisition [facility] [address] [place] [address] Right testicular pain Social History Tobacco Use [...] 06/23/2025 8:40 AM EDT Appointment [facility] [address] [place] [address] 06/23/2025 10:00 AM EDT Office Visit [facility] [address], [address] [place] [address] Ministerio Rosas MD [address] [place] [address] documented as of this encounter Visit Diagnoses Diagnosis Right testicular pain documented in this encounter Additional Health Concerns Infection Onset Date Last Indicated 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 documented as of this encounter Care Teams Victorian Literature Professor Relationship Specialty Start Date End Date Nadja Lara MD [address] [id number] PCP - General 03/04/21 05/03/25 Khadijah Dolan APRN [address] [place] [address] PCP - General 05/04/25 Ministerio Rosas MD [address] [address] Surgeon Urology 09/23/24 documented as of this encounter
--- OUTSIDE RECORDS SUMMARY | 2025-06-08 08:51 | XMS_ITS | Clinical Summary ---
Author Organization [facility] Address [address] [place] [address] Care Team Providers Care Ornamental Ironworker Helper Name Role Phone Ministerio Rosas MD Unavailable [phone] Khadijah Dolan APRN Primary Care Provider [phone]- [phone] Allergies Active Allergy Reactions Criticality Noted Date [...] 3 Active ergocalciferol (Vitamin D-2) 1.25 MG (55155 UT) capsule Active famotidine (Pepcid) 20 MG [...] 10 DAYS. 4 Active Continuous Blood Gluc Design Engineering Manager (FreeStyle Noemi 3 [place]) device 4 Active Continuous Blood Gluc Sensor [...] Encounters Date Type Department Care Team Description 06/03/[address] [facility] Urology [address], [address] [place] [address] Ministerio Rosas MD Confirmed appt 06/02/[address] [facility]rology [address], [address] [place] [address] Kenneth Simpson MD Urothelial carcinoma of bladder without invasion of muscle (Primary Dx) 05/19/[address] [facility]rology [address], [address] [place] [address] Ministerio Rosas MD HCN Clinical Concern/Question; HCN Status Update Call #2 05/05/2025 12:13 PM EDT - 05/05/2025 11:59 PM EDT Hospital Encounter [facility] Radiology [address] [place] [phone] Urothelial carcinoma of bladder without invasion of [...] Info) Description 06/23/2025 8:40 AM EDT Appointment [facility] [address]nd [place] [address] 06/23/2025 10:00 AM EDT Office [facility] [address], [address] [place] [address] Ministerio Rosas MD [address] [place] [address] Health Maintenance Due Date Last Done Comments [facility]-HIV Screening 1960 [facility]-Hepatitis C Screening 1960 [facility]-Medicare Annual Wellness (AWV) 1960 [facility]-/Child/Adol SDOH Screenings 1960 [facility]- SDOH Screenings 1980 [facility]-Adult SDOH Screenings 1980 [facility]-Pneumococcal Vaccine: 50+ Years (1 of 2 - PCV) 1981 [facility]-Zoster Vaccines (1 of 2) 1981 CT Colonography 2007 Colonoscopy 2007 FIT-DNA 2007 FIT 2007 FOBT 2007 Sigmoidoscopy 2007 [facility]-Colorectal Cancer Screening 2007 [id number] Vaccine (3 - Moderna risk series) 03/14/2021 [...] this topic Medical Devices Implanted Type Area Tree Trimming Line Technician Device Identifier Shelf Expiration Date Model / [...] Urine Color Yellow 05/05/2025 2:55 PM EDT [facility] UROLOGY POCT Urine Clarity Clear 05/05/2025 2:55 PM EDT [facility] UROLOGY POCT Urine Glucose Negative Negative mg/dL 05/05/2025 2:55 PM EDT [facility] UROLOGY POCT Urine Bilirubin Negative Negative mg/dL 05/05/2025 2:55 PM EDT [facility] UROLOGY POCT Urine Ketones Negative Negative mg/dL 05/05/2025 2:55 PM EDT [facility] UROLOGY POCT Urine Specific Glynn 1.010 1.005 - 1.030 05/05/2025 2:55 PM EDT [facility] UROLOGY POCT Urine Blood Trace(A) Negative 05/05/2025 2:55 PM EDT [facility] UROLOG POCT pH, Urine 5.5 5.0 - 8.0 05/05/2025 2:55 PM EDT [facility] UROLOG POCT Protein, Urine Negative Negative mg/dL 05/05/2025 2:55 PM EDT [facility] UROLOG POCT Urobilinogen, Urine 0.2 0.2, 1.0 EU/dL 05/05/2025 2:55 PM EDT [facility] UROLOGY POCT Nitrite, Urine Negative Negative 05/05/2025 2:55 PM EDT [facility] UROLOGY POCT Urine Leukocyte Esterase Negative Negative 05/05/2025 2:55 PM EDT [facility] UROLOGY Urine 05/05/2025 2:53 PM EDT 05/05/2025 2:55 PM EDT us Ministerio Rosas MD LAB POINT OF CARE TE ST DOCKED DEVICE UNSOLICITED RESULTS Final Result [facility] [address] [place] * CT Urogram (05/05/2025 1:23 PM EDT) [...] following split bolus administration of IV contrast, [id number], 150 mL. Reformatted images in the coronal [...] and Body Wall: Surgical changes compatible with [id number]-[id number] fusion, with severe degenerative changes at the [...] 85 mL/min/1. 73m*2 05/05/2025 12:31 PM EDT [facility] Harp Regulator ID Aundrea Chung 05/05/2025 12:31 PM EDT [facility] Device ID [id number] 05/05/2025 12:31 PM EDT [facility]ALTH[facility] Comment 05/05/2025 12:31 PM EDT [facility] [...] TEST DOCKED DEVICE UNSOLICITED RESULTS Final Result [facility] [address] LAB [address] [place] [address] * CT Chest w IV Contrast (06/01/2023 [...] MD on 06/01/2023 11:33 AM Zulay [facility] [place] PROCEDURES Final Res ult from Last 3 Months or Most Recently Relevant to Health Maintenance Additional Health Concerns Infection Onset 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 Yes Care Teams Ornamental Ironworker Helper Relationship Specialty Start Date End Date Khadijah Dolan APRN [address] [place] [id number] PCP - General 05/04/25 Ministerio Rosas MD [address] [facility] [address] [place] [phone] Surgeon Urology 09/23/24
--- OUTSIDE RECORDS SUMMARY | 2025-06-08 08:51 | XMS_ITS | Encounter Summary ---
Author Organization [email or web address] ([place], [place], [place], [place]) Address [address] [place] [address] Care Team Providers Care Wet Milling Wheel Operator Name Role Phone Unavailable Primary Care Provider Unavailabl e Encounter Details Date Type Department Care Team (Late st Contact Info) Description 10/31/2020 Transcribed Document [facility] [address] [place] [address] ProviderFarhan MD [address] [place] [address] Social History Tobacco Use [...] - Farhan ProviderMD - 10/31/2020 2:40 PM STEAM CONDITIONING OPERATOR [facility] [place] [address] FRANSISCO CRAVEN :1960 Visit Time:10/29/2020 Your [...] When Within 2 weeks Nirali hylton Where: [address] [place] [address] [place] [id number] [employer] (1) Medications What How Much When Instructions [...] these instructions at home: Medicines ??? Take xywf-qip-tbrhmsn and prescription medicines only as told by [...] cannot use soap and water, use hand automotive parts counter person. ? Change your bandage as told by [...] your pee (urine) pale yellow. ? Take uuiw-rpo-yrevdfa or prescription medicines. ? Eat foods that [...] 02/01/2012 Document Revised: 01/29/2020 Document Reviewed: 01/22/2018 [employer] Patient Education ?? 2020 [email or web address]. acetaminophen and hydrocodone (a SEET a MIN oh fen and michael droe KOE done) Hycet, Lorcet, [place], Verdrocet, Vicodin, Xodol, Zamicet What is the [...] may report side effects to FDA at 4-672-BYV-3326. What other drugs will affect acetaminophen and [...] affect acetaminophen and hydrocodone, including prescription and kiay-rwi-pkthekb medicines, vitamins, and herbal products. Not all [...] to ensure that the information provided by [employer] ('[employer]') is accurate, up-to-date, and complete, but no guarantee is made to that effect. Drug information contained herein may be time sensitive. [employer] information has been compiled for use by healthcare practitioners and consumers in the [place] and therefore [employer] does not warrant that uses outside of the [place] are appropriate, unless specifically indicated otherwise. [employer] drug information does not endorse drugs, diagnose patients or recommend therapy. [employer] drug information is an informational resource designed [...] effective or appropriate for any given patient. [facility] does not assume any responsibility for any aspect of healthcare administered with the aid of information [facility] provides. The information contained herein is not intended to cover all possible uses, directions, precautions, warnings, drug interactions, allergic reactions, or adverse effects. If you have questions about the drugs you are taking, check with your doctor, nurse or pharmacist. Copyright 7671-5086 [facility] [employer] [facility] Version: 16.01. Revision Date: 11/12/2019. Emergency Awareness [...] Assistance with quitting is available by contacting 2-134-CSXU-NOW. This is a free resource providing counseling, [...] range between ( 0.0 and 7.0 ) [place] #: 1.07 K/uL -- Normal range between ( 0.16 and 1.00 ) Eos #: 0.03 x10(3)/uL -- Normal range between ( 0.00 and 0.80 ) [place] %: 7.3 % -- Normal range between [...] ) Urine Bilirubin Dipstick: Negative Urine Specific Zion: *1.028 -- Normal range between ( 1.005 [...] was given the opportunity to ask questions. Patient/Bad Work Gatherer Name: Patient/Bad Work Gatherer Signature: Relationship to Patient: Clinician/Hospital Bad Work Gatherer Signature: Date: documented in this encounter Plan of Treatment Not on file documented as of this encounter Visit Diagnoses Not on filedocumented in this encounter
[2025-06-08 09:22] VITALS: BMI 29.5
[2025-06-08 09:41] VITALS: BP 149/87; PULSE 50; RESP 16; O2SAT 99
--- NOTE | 2025-06-08 10:00 | CT_ITS ---
APPROVED REPORT Warp Splitter: CLINICAL INDICATION Chest Pain TECHNIQUE Image Acquisition: A 128 slice MDCT scanner ([place] View) was used for data acquisition. A noncontrast coronary calcium scan was performed. A CT attenuation threshold of 130 Hounsfield units (HU) was used for the detection of calcium in contiguous voxels of 1 sq mm in area to be counted as individual lesions. Bolus tracking in the ascending aorta with a threshold of 180 HU was performed. Immediately afterwards, ECG synchronized cardiac CT was then performed from the cardiac base to apex using retrospective gating with ECG tube current modulation. A total of 85 mL of Isovue 370 mg/mL contrast medium was administered at 5 mL/sec followed by a saline flush using a biphasic injection protocol. A tube voltage of 120 KVp was used. The patient received the following medications prior to the cardiac CT. 0.4 mg of sublingual nitroglycerin The average heart rate at the time of acquisition was 48 bpm and regular. Image Reconstruction Transaxial images were reconstructed at 0.67 mm slide thickness. Data was reviewed interactively on an advanced workstation capable of 2 and 3-dimensional displays in all conventional reconstruction formats, including multiplanar reformations, maximum intensity projections, curved multiplanar reformations, and volume rendered reconstructions. When applicable, selected routine images describing the relevant coronary anatomy and pathology were saved and sent to PACS. Complications None Technical Quality Overall image quality was fair. Coronary artery opacification was fair. Total DLP (Dose-Length Product) is 2028.4 mGy-cm. The reported value represents the total of one or more individual components during the CT acquisition of this date and at this time, and as such, the same value may appear in more than one CT report depending on the interpreting/reporting physicians. COMPARISON None FINDINGS CT Coronary Calcium Scoring LMA (Left Main Artery) = 402 LAD (Left Anterior Descending) = 734 LCX (Left Coronary Circumflex) = 827 RCA (Right Coronary Artery) = 2603 Total Calcium Score = 4567 using the AJ-130 method. The observed calcium score of 4567 is at 99th percentile for subjects of the same age, sex, and race/ethnicity. The interpretation of the calcium heart score is based on the following continuum*: 0 = no calcified plaque detected (risk of coronary artery disease is very low ??? less than 5%) 1-10 = calcium detected in extremely minimal levels (risk of coronary diseases is still low ??? less than 10%) 11-100 = mild levels of plaque detected with certainty (mild or minimal narrowing of heart arteries is likely) 101-400 = definite,at least moderate levels of plaque detected (relatively high risk of a heart attack within 3-5 years) >401-999 = extensive levels of plaque detected (high risk of heart attack, high levels of vascular disease are present, high likelihood of at least one significant coronary narrowing) *The calcium heart score quantifies the burden of coronary calcification/plaque in the coronary arteries. The calcium heart score is not able to evaluate the presence or burden of non-calcified (i.e. soft) plaque. There is no identifiable calcification in the aortic valve, mitral annulus or mitral valve, pericardium, or myocardium. Coronary CT Angiography The coronary arterial system is right dominant. Quantitative Stenosis Grading: Left Main (LM): The left main originates normally from the left sinus of Valsalva. The LM bifurcates into the left anterior descending artery and left circumflex artery. There is mixed calcified/noncalcified plaque in the LM with up to 25-49% luminal stenosis. Left Anterior Descending (LAD) and Diagonal Branches: The LAD gives off 3 diagonal branch(es). There is mixed calcified/noncalcified plaque in the proximal and mid LAD segments with up to 50-70% luminal stenosis. There is no evidence of LAD-myocardial bridge. Left Circumflex (LCX) and Obtuse Marginals (OM): The LCX gives off 1 Obtuse Marginal (OM) branch(es). There is mixed calcified/noncalcified plaque in the proximal and mid LCx segments with up to 50-70% mild stenosis. Right Coronary Artery (RCA): The RCA originates normally from the right sinus of Valsalva. The RCA gives off a posterior descending artery (PDA) and posterolateral (PL) branches. There is mixed calcified/noncalcified plaque along the RCA lumen, with up to 70-90% luminal stenosis. Non-Coronary Cardiac Findings: Analysis of the left ventricular (LV) structure and function was performed after 3-D reconstruction of the LV from axial images, with user-corrected automatic contouring for assessment of LV volumes and user-defined reconstruction from oblique planes for measurement of 3-D cardiac structure and function. -The left ventricle systolic function is normal. -There is no left atrial appendage filling defect. Two right pulmonary veins and two left pulmonary veins drain normally into the left atrium. -No pericardial thickening or calcification. -Central and branch pulmonary arteries in the tnrdp-ry-sugu are unremarkable. -Thoracic aorta within the visualized thoracic aortic-branches in the kwbsg-kr-mzmr is unremarkable. Extracardiac Structures No significant extra-cardiac findings. Note, however, that this study is focused on the cardiac findings. IMPRESSION -Presence of coronary calcification with an Agatston score = 4567 using the AJ-130 method. -The observed calcium score of 4567 is at 99th percentile for subjects of the same age, sex, and race/ethnicity. -Multivessel atherosclerotic coronary disease, with likely evidence of significant flow-limiting atherosclerosis of the RCA and possibly LAD and LCX segments. -CAD-RADS 4A. Management recommendations per ACC/AHA guidelines*, as clinically appropriate. -Calcification of the ascending and descending thoracic aorta. *Recommendations: CAD RADS 0: Reassurance. Consider non-atherosclerotic causes of chest pain. CAD RADS 1: Consider non-atherosclerotic causes of chest pain. Consider preventive therapy and risk factor modification. CAD RADS 2: Consider non-atherosclerotic causes of chest pain. Consider preventive therapy and risk factor modification, particularly for patients with nonobstructive plaque in multiple segments. CAD RADS 3: Consider further functional testing. Consider symptom-guided anti-ischemic and preventive pharmacotherapy as well as risk factor modification per published guideline statements. CAD RADS 4A: Consider further functional testing or invasive coronary angiography with revascularization per published guideline statements. Consider symptom-guided anti-ischemic and preventive pharmacotherapy as well as risk factor modification per published guideline statements. CAD RADS 4B: Invasive coronary angiography recommended with revascularization per published guideline statements. Consider symptom-guided anti-ischemic and preventive pharmacotherapy as well as risk factor modification per published guideline statements. CAD RADS 5: Consider invasive angiography and/or viability assessment with revascularization per published guideline statements. Consider symptom-guided anti-ischemic and preventive pharmacotherapy as well as risk factor modification per published guideline statements. CRITICAL RESULT None COMMUNICATION Per this written report The coronary and cardiac findings of this CCTA were reviewed, reported, and signed by Blanco Gilliland MD (Auto Body Builder Apprentice) Conclusion Electronically signed by : Francisca Gilliland MD 06/09/2025 14:19:47
[2025-06-08 10:07] LABS: Chloride 104 mmol/L (98-107); Potassium 4.3 mmoL/L (3.5-5.1); Sodium 139 mmol/L (136-145)
[2025-06-08 10:10] LABS: Anion Gap 13.3 mEq/L (5-15); Blood Urea Nitrogen 25 mg/dl (9-20); Calcium 9.3 mg/dl (8.4-10.2); Carbon Dioxide 26 mmol/L (22.0-30.0); Creatinine Clearance Estimated 97 mL/min (50-200); Creatinine,Serum 1.00 mg/dl (0.66-1.25); Estimated Glomerular Filt Rate 75 ml/min (>60); GFR (African American) 91 ML/MIN (>60); Glucose 105 mg/dl (74-100)
[2025-06-08 10:21] VITALS: BP 142/90; PULSE 55; RESP 16; O2SAT 96
[2025-06-08 10:24] VITALS: BP 130/65; PULSE 48; RESP 16; O2SAT 96
[2025-06-08] MEDS: IOPAMIDOL-370 (76%);100ML BOTTLE 85 ML IV (10:41)
[2025-06-08] MEDS: SODIUM CHLORIDE 0.9% 10ML SYR (RAD ONLY) 10 ML IV (10:41)
[2025-06-08] MEDS: 0.9 % SODIUM CHLORIDE 50 ML VIAL 40 ML IV (10:41)
[2025-06-08] MEDS: NITROGLYCERIN 0.4MG SL TABLET SL (10:58)
== END 2025-06-08 10:45 | disposition home or self-care (01) ==
PROVIDERS: PCP Nurse Practitioner Family; Visit Provider Physician Assistant
DX: I25.119 Atherosclerotic heart disease of native coronary artery with unspecified angina pectoris (principal); I70.0 Atherosclerosis of aorta; I42.9 Cardiomyopathy, unspecified; I49.9 Cardiac arrhythmia, unspecified; I10 Essential (primary) hypertension; R00.2 Palpitations
CPT/HCPCS: 75574; 80048; Q9967

== ENCOUNTER 2025-06-18 09:32 | Outpatient (CLI) | payer MEDICARE, SELFPAY ==
--- OUTSIDE RECORDS SUMMARY | 2025-05-05 12:13 | XMS_ITS | Encounter Summary ---
Author Organization [facility] Address [address] [place] [address] Care Team Providers Care Twill Cutter Name Role Phone Ministerio Rosas MD Unavailable [phone] Khadijah Dolan APRN Primary Care Provider [phone] Reason for Referral * Imaging (Routine) - Closed Specialty Diagnoses / Procedures Referred By Loki tyler Referred To Contact Radiology Diagnoses Urothelial carcinoma of bladder without invasion of muscle Procedures CT Urogram Ministerio Rosas MD [address] [address] Phone: tel: fax: Referral ID Status Reason Start Date Expiration Date Visits Re quested Visits Authorized [id number] Closed 02/03/2025 08/05/2026 1 1 Reason for Visit * Imaging (Routine) - Closed Specialty Diagnoses / Procedures Referred By Loki tyler Referred To Contact Radiology Diagnoses Urothelial carcinoma of bladder without invasion of muscle Procedures CT Urogram Ministerio Rosas MD [address] [address] Phone: tel: fax: Referral ID Status Reason Start Date Expiration Date Visits Re quested Visits Authorized [id number] Closed 02/03/2025 08/05/2026 1 1 Encounter Details Date Type Department Care Team (Latest Contact Info) Description 05/05/2025 12:13 PM EDT - 05/05/2025 11:59 PM EDT Hospital Encounter [facility] Radiology [address] [place] [address] Urothelial carcinoma of bladder without invasion of [...] FOR 10 DAYS. 01/02/2024 Continuous Blood Gluc Gas Line Repairer (FreeStyle Noemi 3 [place]) device 02/01/2024 Continuous Blood Gluc Sensor (FreeStyle Noemi 3 Sensor) misc 02/01/2024 DULoxetine (Cymbalta) [address] capsule TAKE ONE (1) CAPSULE EVERY DAY BY ORAL ROUTE. 08/26/2024 ergocalciferol (Vitamin D-2) 1.25 MG (84698 UT) capsule famotidine (Pepcid) 20 MG tablet [...] Info) Description 06/23/2025 8:40 AM EDT Appointment [facility] [address] [place] [address] 06/23/2025 10:00 AM EDT Office Visit [facility] [address] [place] [address] Ministerio Rosas MD [address] [place] [address] Scheduled Orders Name Type Priority [...] following split bolus administration of IV contrast, [id number], 150 mL. Reformatted images in the coronal [...] and Body Wall: Surgical changes compatible with [id number] fusion, with severe degenerative changes at the [...] POCT creatinine (05/05/2025 12:29 PM EDT) Pathologist [facility] Creatinine, Point of Care 1.0 0.7 - 1.2 mg/dL 05/05/2025 12:31 PM EDT [facility] POCT eGFR 85 mL/min/1. 73m*2 05/05/2025 12:31 PM EDT [facility] Real Estate Associate ID Aundrea Chung 05/05/2025 12:31 PM EDT [facility] Device ID [id number] 05/05/2025 12:31 PM EDT [facility] Comment 05/05/2025 12:31 PM EDT [facility] Comment:Testing performed on i-STAT at the point of care. Reported eGFRcr in mL/min/1.73m2 is based the CKD-EPI 2020 equation that does not use a race coefficient. Blood Venous blood specimen / Unknown 05/05/2025 12:29 PM EDT 05/05/2025 12:31 PM EDT us Generic Provider Poct LAB POINT OF CARE TEST DOCKED DEVICE UNSOLICITED RESULTS Final Result [facility] [address] [id number] [facility] [address] [place] [address] documented in this encounter Visit Diagnoses Diagnosis [...] documented as of this encounter Care Teams Twill Cutter Relationship Specialty Start Date End Date Khadijah Dolan APRN [address] [place] [address] PCP - General 05/04/25 Ministerio Rosas MD [address] [place] [address] Surgeon Urology 09/23/24 documented as of this encounter
--- OUTSIDE RECORDS SUMMARY | 2025-06-18 09:37 | XMS_ITS | Encounter Summary ---
Author Organization [facility] Address [address] [place] [address] Care Team Providers Care Bar Welder Name Role Phone Ministerio Rosas MD Unavailable [phone] Khadijah Dolan APRN Primary Care Provider [phone] Encounter Details Date Type Department Care Team [...] difficult at all 05/05/2025 2:57 PM EDT Jaxosn Deleon documented as of this encounter Plan of Treatment Upcoming Encounters Date Type Department Care Team (Late st Contact Info) Description 06/23/2025 8:40 AM EDT Appointment [facility] CT [address] [place] [address] 06/23/2025 10:00 AM EDT Office Visit [place] [facility] [address], [address] [place] [address] Ministerio Rosas MD [address] [address] documented as of this encounter [...] documented as of this encounter Care Teams Bar Welder Relationship Specialty Start Date End Date Khadijah Dolan APRN [address] [place] [address] PCP - General 05/04/25 Ministerio Rosas MD [address] [address] Surgeon Urology 09/23/24 documented as of this encounter
--- OUTSIDE RECORDS SUMMARY | 2025-06-18 09:37 | XMS_ITS | Encounter Summary ---
Author Organization [facility] Address [address] [place] [address] Care Team Providers Care Electronic Technologist Name Role Phone Ministerio Rosas MD Unavailable Khadijah Dolan APRN Primary Care Provider [phone] Reason for Visit * Reason Onset Date Comments HCN Clinical Concern/Question 05/19/2025 HCN Status Update Call #2 05/19/2025 Encounter Details Date Type Department Care Team (Late st Contact Info) Description 05/19/2025 Telephone [facility] [facility] [address] [place] [address] Ministerio Rosas MD [address] [place] [address] HCN Clinical Concern/Question; HCN Status [...] of the initial request. Best contact number: [phone] Optimal time of day to reach caller: ANYTIME Additional comments/information from caller: Note: Please do not reply to this message. Follow-up communication and further actions as a result of this message need to be communicated with the patient directly, if the patient is not active onMyChart. If the patient is active on MyChart, they will receive notification of the communication/outcome via [employer]. * Telephone Encounter - Cierra Peacock - 05/25/2025 10:17 AM EDT Clinical Concern/Question Reason for Call: Patient is asking for a call back regarding needing the CT scan results. Best contact number: [phone] (mobile) Optimal time of day to reach [...] to get CT results (05/05/25). Records in [facility]. Please review and call patient to discuss. Thank you Best contact number: [phone] (mobile) Optimal time of day to reach [...] Info) Description 06/23/2025 8:40 AM EDT Appointment [facility] CT [address] [place] [address] 06/23/2025 10:00 AM EDT Office Visit [facility] Urology [address] [place] [address] Ministerio Rosas MD [address] [place] [address] documented as of this encounter [...] documented as of this encounter Care Teams Electronic Technologist Relationship Specialty Start Date End Date Khadijah Dolan APRN [address] [place] [address] PCP - General 05/04/25 Ministerio Rosas MD [address] [place] [address] Surgeon Urology 09/23/24 documented as of this encounter
--- OUTSIDE RECORDS SUMMARY | 2025-06-18 09:37 | XMS_ITS | Encounter Summary ---
Author Organization [employer] ([place], [place], [place], [place]) Address [address] [place] [address] Care Team Providers Care Wealth Management Advisor Name Role Phone Unavailable Primary Care Provider Unavailabl e Encounter Details Date Type Department Care Team (Late st Contact Info) Description 10/26/2020 Transcribed Document [facility] Family Medicine [address] [place] [address] ProviderFarhan MD [address], [place] [id number] Social History Tobacco Use Types Packs/Day Years [...] - Historical ProviderMD - 10/26/2020 9:22 AM MAINTENANCE WELDER Spiritual Care Assessment Entered On: 10/29/2020 7:43 EST Performed On: 10/29/2020 7:27 EST by SADIE ALEX General Information Initial Visit : Yes Referred by : Patient Referral Reason Comment : Pre-surgery visit Ministry Provided to : Patient Sikhism Preference : Mandaeism SADIE ALEX P - 10/29/2020 7:43 EST Spiritual Assessment Spiritual Assessment Comment/Summary Points : Provided pre-surgery visit and prayer. Spirital Assessment Comment/Summary Report : SPIRITUAL ASSESSMENT COMMENT/SUMMARY No qualifying data available. SADIE ALEX P - 10/29/2020 7:43 EST Interventions Emotional Support : Empathic/Engaged listening Spiritual and Sikhism : Prayer shared, Spiritual/Sikhism support provided SADIE ALEX - 10/29/2020 7:43 EST Electronically signed by Kailey [facility] Conversion Tool Programmer Cerner at 02/08/2023 12:38 PM CDT documented in this encounter Plan of Treatment Not on file documented as of this encounter Visit Diagnoses Not on filedocumented in this encounter
--- OUTSIDE RECORDS SUMMARY | 2025-06-18 09:37 | XMS_ITS | Clinical Summary ---
Author Organization [facility] Address [address] [place] [address] Phone Care Team Providers Care Surgical Asst Name Role Phone Lincoln Iqbal MD [ ] Conditions or Problems Problem Name Problem Code Onset Date Status Entry Date Provider Comment Standard Description Annotate skilled nursing (current) drug therapy, INH Z79.899 (ICD-10-CM ) 01/12 Active 01/12 Bobbi Eagle Other intermediate designer (current) drug therapy Dysuria 00439755 (SNOMED CT) 12/19 Active 12/19 Lincoln Iqbal MD Dysuria Adverse drug reaction 374838642 (SNOMED CT) 12/19 Active 12/19 Lincoln Iqbal MD H/O: Disorder Nausea 718547598 (SNOMED CT) 12/19 Active 12/19 Lincoln Iqbal [...] involvement DM II with diabetic peripheral neuropathy 90080969 (SNOMED CT) Active Bobbi Eagle Type 2 [...] without damage to nail, initial encounter Obesity 324335739 (SNOMED CT) Inactive Bobbiarabella Eagle Obesity Diarrhea, antibiotic associated 116264924 (SNOMED CT) 11/20 Inactive 11/20 Bobbi Eagle Antibiotic-ass ociated diarrhea Diarrhea, antibiotic associated 062075853 (SNOMED CT) 11/20 Removed 11/20 Lincoln Iqbal MD Antibiotic-ass ociated diarrhea Obesity 441118643 (SNOMED CT) Removed Trish Napier RN Obesity [...] W Nicotine dependence, cigarettes, uncomplicated Tobacco abuse 07300404 (SNOMED CT) Inactive Lincoln Iqbal MD Tobacco [...] acute osteomyelitis, right hand Benign Essential Hypertension 1899985 (SNOMED CT) Active Bobbi Eagle Benign essential hypertension DM Type II E11.9 (ICD-10-CM ) Inactive Bobbi Eagle Type 2 diabetes mellitus without complications Dog bite, initial treatment encounter(s) W54.0xxA (ICD-10-CM ) Removed Bobbi Eagle Bitten by dog, initial encounter Medications Medication Instructions Start Date Stop Date Generic Name ND Provider RIFAMPIN 300 MG CAPS 2 daily RIFAMPIN 15890380723 Lincoln Iqbal MD ISONIAZID 300 MG TABS one daily ISONIAZID 20585791448 Lincoln Iqbal MD B-6 50 MG TABS one daily PYRIDOXINE HCL 82381888921 Lincoln Iqbal MD TRAMADOL HCL 50 MG TABS by mouth twice daily TRAMADOL HCL 33340965309 Devonte Holland CELEBREX 200 MG CAPS by mouth daily CELECOXIB 52882819306 Devonte Holland LYRICA 150 MG CAPS by mouth twice daily PREGABALIN 95760340503 Devonte Holland DIAZEPAM 5 MG TABS Take/use as needed. DIAZEPAM 31646127429 Devonte Holland MELOXICAM 15 MG TABS by mouth daily MELOXICAM 02803545071 Devonte Holland NORCO 10-325 MG ORAL TABLET HYDROCODONE-ACET AMINOPHEN 73715504401 Devonte Holland VICOPROFEN 7.5-200 MG ORAL TABLET HYDROCODONE-IBUP ROFEN 81651309390 Devonte Holland BACTRIM DS 800-160 MG TABS SULFAMETHOXAZOLE -TRIMETHOPRIM 97502273839 Devonte Holland MUPIROCIN 2 % OINT apply daily to finger MUPIROCIN 80720315597 Devonte Amalia CIPROFLOXACIN HCL 500 MG TABS 1 by mouth twice a day CIPROFLOXACIN HCL 54978851310 Devonte Holland MINOCYCLINE HCL 100 MG CAPS one pill by mouth twice daily MINOCYCLINE HCL 38718108829 Devonte Holland INVANZ 1 GM INTRAVENOUS SOLUTION RECONSTITUTED 1gm IV daily [facility] [phone](f) [phone] ERTAPENEM SODIUM 14873744893 Clementine Pablo MINOCYCLINE HCL 100 MG CAPS one pill by mouth twice daily MINOCYCLINE HCL 13424816670 Lincoln Iqbal MD CIPROFLOXACIN HCL 500 MG TABS 1 by mouth twice a day CIPROFLOXACIN HCL 42166977518 Lincoln Iqbal MD INVSALVADOR 1 GM INTRAVENOUS SOLUTION RECONSTITUTED 1gm IV daily [facility] [phone](f) [phone] ERTAPENEM SODIUM 76166479735 [facility] INVANZ 1 GM INTRAVENOUS SOLUTION RECONSTITUTED 1gm IV daily [facility] (f) [phone] ERTAPENEM SODIUM 30689174780 [facility] MINOCYCLINE HCL 100 MG CAPS 1 twice daily MINOCYCLINE HCL 55378567073 Shyanne Rangel RN CIPROFLOXACIN HCL 500 MG TABS 1 by mouth twice a day CIPROFLOXACIN HCL 97388145842 Shyanne Rangel RN CIPROFLOXACIN HCL 500 MG TABS 1 by mouth twice a day CIPROFLOXACIN HCL 31844625691 Lincoln Iqbal MD MINOCYCLINE HCL 100 MG CAPS 1 twice daily MINOCYCLINE HCL 00906386234 Lincoln Iqbal MD MUPIROCIN 2 % OINT apply daily to finger MUPIROCIN 04166344734 Lincoln Iqbal MD VITAMIN D2 50 MCG (1999 UT) TABS 1.25mg daily ERGOCALCIFEROL 81398253966 Parisa Marcial ALLEN LOW DOSE 81 MG TBEC by mouth daily ASPIRIN 34846463995 Parisa Marcial DIAZEPAM 5 MG TABS Take/use as needed. DIAZEPAM 28567368716 Parisa Marcial DICLOFENAC SODIUM 75 MG TBEC DICLOFENAC SODIUM 42652883003 Parisa Marcial LISINOPRIL 40 MG TABS by mouth daily LISINOPRIL 66865700307 Parisa Marcial LYRICA CAPS PREGABALIN CAPS 63548054344 Parisa Marcial METFORMIN HCL 500 MG TABS by mouth twice daily METFORMIN HCL 76787171061 Parisa Marcial MELOXICAM 15 MG TABS by mouth daily MELOXICAM 49758749626 Parisa Marcial VOLTAREN 1 % GEL DICLOFENAC SODIUM 63674235241 Parisa Marcial VOLTAREN 1 % GEL DICLOFENAC SODIUM 60188793432 Janet Madden VICOPROFEN 7.5-200 MG ORAL TABLET HYDROCODONE-IBUP ROFEN 33789144297 Janet Solanox NORCO 10-325 MG ORAL TABLET HYDROCODONE-ACET AMINOPHEN 20986501713 Janet Solanox METFORMIN HCL 500 MG TABS METFORMIN HCL 90401643750 Janet Griffindox MELOXICAM TABS MELOXICAM TABS 74562388503 Janet Madden LYRICA CAPS PREGABALIN CAPS 27270360525 Janet Madden LISINOPRIL 40 MG TABS LISINOPRIL 83102141173 Janet Madden LEVOTHYROXINE SODIUM TABS LEVOTHYROXINE SODIUM TABS 00423883119 Janet Madden EFFEXOR XR 75 MG [id number] VENLAFAXINE HCL 22952897676 Janet Madden DICLOFENAC SODIUM 75 MG TBEC DICLOFENAC SODIUM 76541403649 Janet Madden DIAZEPAM 5 MG TABS DIAZEPAM 37988928466 Janet Madden BACTRIM DS 800-160 MG TABS SULFAMETHOXAZOLE -TRIMETHOPRIM 43623303487 Janet Madden Medications Administered No information available. [...] Blood by Automated count Lab Report: COMPREHENSIVE OR TABOLIC PANEL ANIONGAP 8.0 mmol/L 3.0-11.0 anion 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 INSIDE SALES ASSISTANT yes Dietary management education, guidance, and counseling [...] antibiotics 20 10/12/27 CPT-oral Discontinue oral antibiotics CPT-01164 CMP [id number] CBC with Differential 2018 CPT-13266 Urine Culture & Sensitivity CPT-62813 Urinalysis with microscopic exam CPT-patrice New Oral [...] New IV antibiotic CPT-patrice New Oral Antibiotic CPT-98658 PICC Line Insertion CPT-88262 PICC Line Insertion CPT-wpc Weekly PICC Line Care CPT- stat weekly Stat Weekly Labs [id number] CBC with Differential 2015 CPT-52042 CMP CPT-35519 C- reactive protein CPT-80676 Sedimentation Rate (ESR) 201 03/31/24 31022 Hepatitis C Atb: (ICD 10 Code: Z11.59) [...]
--- OUTSIDE RECORDS SUMMARY | 2025-06-18 09:37 | XMS_ITS | Encounter Summary ---
Author Organization [facility] Address [address] [place] [address] Care Team Providers Care Clinical Sociologist Name Role Phone Ministerio Rosas MD Unavailable [phone] Khadijah Dolan APRN Primary Care Provider [phone] Encounter Details Date Type Department Care Team [...] Info) Description 06/23/2025 8:40 AM EDT Appointment [facility] [address] [place] [address] 06/23/2025 10:00 AM EDT Office Visit [facility] [address], [address] [place] [address] Ministerio Rosas MD [address] [address] documented as of this encounter [...] documented as of this encounter Care Teams Clinical Sociologist Relationship Specialty Start Date End Date Khadijah Dolan APRN [address] [id number] PCP - General 05/04/25 Ministerio Rosas MD [address] [id number] Surgeon Urology 09/23/24 documented as of this encounter
--- OUTSIDE RECORDS SUMMARY | 2025-06-18 09:38 | XMS_ITS | Encounter Summary ---
Author Organization [employer] ([place], [place], [place], [place]) Address [address] [place] [address] Care Team Providers Care Welder Plasma Arc Name Role Phone Unavailable Primary Care Provider Unavailabl e Encounter Details Date Type Department Care Team (Late st Contact Info) Description 10/29/2020 Transcribed Document [facility] [place] [address] ProviderFarhan MD [address] [place] [address] Social History Tobacco Use Types [...] - Historical ProviderMD - 10/29/2020 10:34 AM GENERAL LOT ATTENDANT Evaluation, Physical Therapy Entered On: 10/29/2020 15:22 [...] Actual Treatment Time : 25 Minute(s) KATINA LIAGN, PT - 10/29/2020 15:23 EST History and [...] KATINA LIANG, PT - 10/29/2020 15:23 EST Engineer Conductor Goals Mobility/Bed Mobility LTG PT Grid Goal [...] KATINA LIANG, PT - 10/29/2020 15:23 EST [place] PT Charges PT Therap. Exercise 15 min : 1 PT Eval Low Complexity : 1 KATINA LIANG, PT - 10/29/2020 15:23 EST Electronically signed by [facility] Conversion Sap Bw Developer Vitorner at 02/08/2023 12:22 PM CDT documented in this encounter Plan of Treatment Not on file documented as of this encounter Visit Diagnoses Not on filedocumented in this encounter
--- OUTSIDE RECORDS SUMMARY | 2025-06-18 09:38 | XMS_ITS | Encounter Summary ---
Author Organization [employer] ([place], [place], [place], [place]) Address [address] [place] [address] Care Team Providers Care High Worker Name Role Phone Unavailable Primary Care Provider Unavailabl e Encounter Details Date Type Department Care Team (Late st Contact Info) Description 10/29/2020 Transcribed Document [facility] [place] [facility] [place] [address] ProviderFarhan MD [address] [place] [address] Social History Tobacco Use Types [...] - Farhan ProviderMD - 10/29/2020 10:34 AM ORDER DISPATCHER Pain Assessment Entered On: 10/30/2020 20:02 EST [...]
--- OUTSIDE RECORDS SUMMARY | 2025-06-18 09:38 | XMS_ITS | Encounter Summary ---
Author Organization [employer] ([place], [place], [place], [place]) Address [address] [place] [address] Care Team Providers Care Liquor Gallery Operator Name Role Phone Unavailable Primary Care Provider Unavailabl e Encounter Details Date Type Department Care Team (Late st Contact Info) Description 10/29/[address] [facility] [place] [address] [place] [address] ProviderFarhan MD [address] [place] [address] Social History Tobacco Use Types [...] - Farhan ProviderMD - 10/29/2020 8:39 AM DIRECTOR [facility] Main OR Preop Summary Primary Physician: ADDIE VELIZ MD-SNU Finalized Date/Time: 10/29/20 12:44:39 Pt. Name: FRANSISCO CRAVEN/Sex: 1960 Male Med Rec #: [id number] Physician: ADDIE VELIZ MD-TANVIR Financial #: [id number] Pt. Type: I Room/Bed: 647/1 Admit/Disch: 10/29/20 12:20:00 - Institution: [facility] PreOp Case Times Entry 1 In Preop 10/29/20 06:05:00 Ready for Holding n/a Room Patient Ready for 10/29/20 07:31:00 Surgery Patient Out of Preop 10/29/20 08:11:00 Patient Out of n/a Holding Room Last Modified By: PEDRO Briceño RN 10/29/20 12:44:37 [facility] PreOp Case Times Audit 10/29/20 12:44:37 [employer] Manager: CHRISTY Modifier: WILSONDL <+> 1 Patient Out of Preop 10/29/20 07:31:08 [employer] Manager: CHRISTY Modifier: WILSONDL <+> 1 Patient Ready for Surgery Finalized By: PEDRO Briceño, RN Document Signatures Signed By: PEDRO Briceño RN 10/29/20 12:44 Electronically signed by [facility] Conversion Grounding Engineer Cerner at 02/08/2023 12:23 PM CDT documented in this encounter Plan of Treatment Not on file documented as of this encounter Visit Diagnoses Not on filedocumented in this encounter
--- OUTSIDE RECORDS SUMMARY | 2025-06-18 09:38 | XMS_ITS | Encounter Summary ---
Author Organization [employer] ([place], [place], [place], [place]) Address [address] [place] [address] Care Team Providers Care Engineering Professionals Name Role Phone Unavailable Primary Care Provider Unavailabl e Encounter Details Date Type Department Care Team (Late st Contact Info) Description 10/31/2020 Transcribed Document [facility] [place] [address] [place] [address] ProviderFarhan MD [address] [place] [id number] Social History Tobacco Use Types Packs/Day Years [...] - Historical ProviderMD - 10/31/2020 3:52 PM FIRE BOAT ENGINEER Final Discharge Planning Entered On: 10/31/2020 15:53 EST Performed On: 10/31/2020 15:52 EST by SHAWNEE MAYORGA RN-Record Filing Clerk Final Discharge Planning Discharge Arrangements : Patient Post-Acute Information Patient Name: FRANSISCO CRAVEN Gender: Male : [birth year] Age: 60 Years No Post-Acute Placement(s) Listed No Post-Acute Service(s) Listed No [place] Referral(s) Listed Follow Up Appointment Scheduled : Yes Is Patient High/Moderate Readmission Risk? : No Discharge To Care Management : Home/Residential/Group Home or Self Care - SHAWNEE MAYORGA RN-Record Filing Clerk - 10/31/2020 15:52 EST Final Narrative Note Final Narrative Note : To d/c home with . Per PLOF independent. Ordered walker and BSC from [facility] to deliver to room prior to d/c. denies need for HH or other needs. SHAWNEE MAYORGA, RN-Record Filing Clerk - 10/31/2020 15:52 EST Electronically signed by Kailey [facility] Conversion Music Teacher Cerner at 02/08/2023 12:21 PM CDT documented in this encounter Plan of Treatment Not on file documented as of this encounter Visit Diagnoses Not on filedocumented in this encounter
--- OUTSIDE RECORDS SUMMARY | 2025-06-18 09:38 | XMS_ITS | Encounter Summary ---
Author Organization [employer] ([place], [place], [place], [place]) Address [address] [place] [address] Care Team Providers Care Security Orderly Name Role Phone Unavailable Primary Care Provider Unavailabl e Encounter Details Date Type Department Care Team (Late st Contact Info) Description 10/31/2020 Transcribed Document [facility] [address] [place] [address] Mary Beth Orr MD [address] [address] Social History Tobacco Use Types [...] is a 60 yo male admitted to [facility] per Dr. Green for an L3-5 PLIF. [...] 100 mg intravenous injection 1 Infusion, IntraVENous, D3Dilhi Jardiance 25 mg oral tablet 25 mg [...]
--- OUTSIDE RECORDS SUMMARY | 2025-06-18 09:38 | XMS_ITS | Encounter Summary ---
Author Organization [employer] ([place], [place], [place], [place]) Address [address] [place] [address] Care Team Providers Care Virtualization Engineer Name Role Phone Unavailable Primary Care Provider Unavailabl e Encounter Details Date Type Department Care Team (Late st Contact Info) Description 10/31/2020 Transcribed Document [facility] [address] [place] [address] ProviderFarhan MD [address] [place] [id number] Social History Tobacco Use Types Packs/Day Years [...] - Historical ProviderMD - 10/31/2020 2:50 PM DATA ENTRY COORDINATOR Initial Discharge Planning Entered On: 10/31/2020 14:51 EST Performed On: 10/31/2020 14:50 EST by SHAWNEE MAYORGA RN-Associate Professor Of Music Initial Assessment I Previously Documented Living Environment [...] Is Guardianship Needed : No SHAWNEE MAYORGA RN-Associate Professor Of Music - 10/31/2020 14:50 EST Initial Assessment II Sensory and Motor Deficits : None Current Home Treatments and Equipment : None SHAWNEE MAYORGA RN-Associate Professor Of Music - 10/31/2020 14:50 EST Discharge Needs I Anticipated Discharge Date : 10/31/2020 EST Anticipated Discharge To, CM : Home with family care Current Home Treatment/Equipment : Current Home Treatment/Equipment No qualifying data available. Post Acute/Home Treatments : None Documentation Status Complete : Yes SHAWNEE MAYORGA RN-Associate Professor Of Music - 10/31/2020 14:50 EST Discharge Needs II Professional Skilled Services : Professional Skilled Services No qualifying data available. Needs Assistance with Transportation : No Discharge Options Discussed with Patient : Discharge transportation, DME, Home Health SHAWNEE MAYORGA RN-Associate Professor Of Music - 10/31/2020 14:50 EST documented in this encounter Plan of Treatment Not on file documented as of this encounter Visit Diagnoses Not on filedocumented in this encounter
--- OUTSIDE RECORDS SUMMARY | 2025-06-18 09:38 | XMS_ITS | Encounter Summary ---
Author Organization [facility] Address [address] [place] [address] Care Team Providers Care Bakery Products Checker Name Role Phone Ministerio Rosas MD Unavailable [phone] Khadijah Dolan APRN Primary Care Provider [phone] Reason for Referral * Imaging (Routine) - Authorized Specialty Diagnoses / Procedures Referred By Contac t Referred To Contact Radiology Diagnoses Urothelial carcinoma of bladder without invasion of muscle Procedures CT Urogram Ministerio Rosas MD [address] [place] [address] Phone: tel: fax: Referral ID Status Reason Start Date Expiration Date V isits Requested Visits Authorized [id number] Authorized 06/02/2025 12/02/2026 1 1 Encounter Details Date Type Department Care Team (Late st Contact Info) Description 06/02/2025 Orders Only [facility] Urology [address] [place] [address] Kenneth Simpson MD [address] [place] [address] Urothelial carcinoma of bladder without [...] Appointment [facility] [address] [place] [address] 06/23/2025 10:00 AM EDT Office Visit [facility] [address] [place] [address] Ministerio Rosas MD [address] [place] [address] Scheduled Orders Name Type Priority Associated Diagnoses [...] documented as of this encounter Care Teams Bakery Products Checker Relationship Specialty Start Date End Date Khadijah Dolan APRN [address] [id number] PCP - General 05/04/25 Ministerio Rosas MD [address] [address] Surgeon Urology 09/23/24 documented as of this encounter
--- OUTSIDE RECORDS SUMMARY | 2025-06-18 09:38 | XMS_ITS | Encounter Summary ---
Author Organization [employer] ([place], [place], [place], [place]) Address [address] [place] [address] Care Team Providers Care Engine Testing Supervisor Name Role Phone Unavailable Primary Care Provider Unavailabl e Encounter Details Date Type Department Care Team (Late st Contact Info) Description 10/29/2020 Transcribed Document [facility] [place] [facility] [place] [address] ProviderFarhan MD [address] [place] [address] Social History Tobacco Use Types [...] - Historical ProviderMD - 10/29/2020 3:35 PM INFORMATION SECURITY CONSULTANT Treatment Intervention, PT Entered On: 10/31/2020 9:54 EST Performed On: 10/31/2020 9:49 EST by Ronan Chase PHYSICAL RUDOLPH General Information, PT Visit Type, PT : Treatment Note Patient Orders : Order Date Order Ordering 10/29/2020 10:34 Physical Therapy Eval and Treat Ordered By: ADDIE VELIZ MD-SNU 10/29/2020 15:35 PT Additional Treatment Ordered By: KAITNA LIANG PT Active Diagnoses : No Qualifying [...] Chase PHYSICAL THERAPIST - 10/31/2020 9:49 EST Technical Support Representative Goals Mobility/Bed Mobility LTG PT Grid Goal [...]
--- OUTSIDE RECORDS SUMMARY | 2025-06-18 09:38 | XMS_ITS | Encounter Summary ---
Author Organization [email or web address] ([place], [place], [place], [place]) Address [address] [place] [address] Care Team Providers Care Historian Dramatic Arts Name Role Phone Unavailable Primary Care Provider Unavailabl e Encounter Details Date Type Department Care Team (Late st Contact Info) Description 10/29/2020 Transcribed Document [facility] [address] [facility] [address] [place] [address] Addie Veliz Jr., MD [address] [place] [address] [address] [place] [address] Social History Tobacco Use Types [...]
--- OUTSIDE RECORDS SUMMARY | 2025-06-18 09:38 | XMS_ITS | Encounter Summary ---
Author Organization [employer] ([place], [place], [place], [place]) Address [address] [place] [address] Care Team Providers Care Multi Skilled Operator Name Role Phone Unavailable Primary Care Provider Unavailabl e Encounter Details Date Type Department Care Team (Late st Contact Info) Description 10/29/2020 Transcribed Document [facility] Family Medicine [facility] [place] [address] ProviderFarhan MD [address] [place] [address] Social History Tobacco Use Types [...] - Farhan ProviderMD - 10/29/2020 8:39 AM TOOL PLANNER [facility] Main OR IntraOp Summary Primary Physician: ADDIE VELIZ MD-SNU Finalized Date/Time: 10/30/20 16:24:05 Pt. Name: FRANSISCO CRAVEN/Sex: 1960 Male Med Rec #: [id number] Physician: ADDIE VELIZ MD-SNU Financial #: [id number] Pt. Type: I Room/Bed: [facility]/ Admit/Disch: 10/29/20 12:20:00 - Institution: [facility] IntraOp Case Attendance Entry 1 Entry 2 Entry 3 Case Attendee ADDIE VELIZ MD-SNU WASSON, SANDRA D, RN CLARI NORRIS RN Role Performed Surgeon/Proceduralist, Watchmaker Apprentice, First Watchmaker Apprentice, Second First Time In 10/29/20 08:13:00 10/29/20 [...] APRN Role Performed Scrub, First Physician assistant front office manager FLAT SPRING ASSEMBLER/Nurse Rat Poisoner Time In 10/29/20 08:13:00 10/29/20 08:13:00 10/29/20 [...] OTHER, ATTENDEE #1 ROCIO ALCALA RN Diagnostic Electromechanic Role Performed Air Tank Assembler Vendor Watchmaker Apprentice, Second Time In 10/29/20 08:13:00 10/29/20 08:13:00 [...] Case Attendee PROMISE ZAMORANO Sawyer, Susan, DAVID-GENI Assistant Finance Manager Role Performed FLAT SPRING ASSEMBLER/Nurse Rat Poisoner Air Tank Assembler Time In 10/29/20 09:43:00 10/29/20 09:44:00 Time Out 10/29/20 09:55:00 10/29/20 10:14:00 Procedure Lumbar Fusion Posterior Lumbar Fusion Posterior 3 Level 3 Level Other Attendee FLAT SPRING ASSEMBLER BREAK RELIEF RT BREAK RELIEF Superficial Wound Closed By: Last Modified By: TAE HERNANDEZ, TAE BARRIOS, RN 10/29/20 09:44:46 10/29/20 09:44:46 [facility] IntraOp Case Attendance Audit 10/29/20 10:35:34 Teacher Preschool: WASSONSY Modifier: WASSONSY 1 <+> Time Out [...] Lumbar Fusion Posterior 3 Level 10/29/20 10:19:58 Teacher Preschool: WASSONSY Modifier: WASSONSY 7 <-> Time Out 10/29/20 09:44:00 7 <*> Procedure Lumbar Fusion Posterior 3 Level 11 <+> Time Out 11 <*> Procedure Lumbar Fusion Posterior 3 Level 10/29/20 10:11:32 Teacher Preschool: WASSONSY Modifier: WASSONSY 7 <+> Time Out 7 <*> Procedure Lumbar Fusion Posterior 3 Level 10/29/20 09:55:51 Teacher Preschool: WASSONSY Modifier: WASSONSY 10 <*> Time Out 10/29/20 10:03:00 10 <*> Procedure Lumbar Fusion Posterior 3 Level 10/29/20 09:44:46 Teacher Preschool: WASSONSY Modifier: WASSONSY <+> 10 Case Attendee <+> 10 Role Performed <+> 10 Time In <+> 10 Time Out <+> 10 Procedure <+> 10 Other Attendee <+> 11 Case Attendee <+> 11 Role Performed <+> 11 Time In <+> 11 Procedure <+> 11 Other Attendee 10/29/20 08:40:39 Teacher Preschool: WASSONSY Modifier: WASSONSY <+> 9 Case Attendee <+> 9 Role Performed <+> 9 Time In <+> 9 Time Out <+> 9 Procedure 10/29/20 08:39:35 Teacher Preschool: WASSONSY Modifier: WASSONSY 1 <*> Procedure Lumbar [...] Lumbar Fusion Posterior 3 Level 10/29/20 08:31:47 Teacher Preschool: WASSONSY Modifier: WASSONSY 1 <+> Time In [...] <+> 8 Procedure <+> 8 Other Attendee [facility] IntraOp Case Times Entry 1 Patient In Room Time 10/29/20 08:13:00 Out Room Time 10/29/20 10:35:00 Anesthesia Start Time 10/29/20 08:13:00 Stop Time 10/29/20 10:35:00 Surgery / Procedure Times Start Time 10/29/20 08:39:00 Stop Time 10/29/20 10:27:00 Last Modified By: TAE HERNANDEZ RN 10/29/20 10:28:15 [facility] IntraOp Case Times Audit 10/29/20 10:35:30 Teacher Preschool: WASSONSY Modifier: WASSONSY <+> 1 Out Room Time <+> 1 Stop Time 10/29/20 10:28:15 Teacher Preschool: WASSONSY Modifier: WASSONSY <+> 1 Stop Time 10/29/20 08:39:38 Teacher Preschool: WASSONSY Modifier: WASSONSY <+> 1 Start Time [facility] IntraOp Cautery Entry 1 Entry 2 ESU Identification Cautery Type Monopolar ESU BiPolar ESU Cautery Type Comments ID Number [id number] ID Type Hospital Number Hospital Number Cautery [...] SANDRA D, RN 10/29/20 08:47:23 10/29/20 08:47:23 [facility] IntraOp Cautery Audit 10/29/20 08:49:38 Teacher Preschool: WASSONSY Modifier: WASSONSY 1 <+> Grounding Pad Site 1 <*> Grounding Pad Applied By TAE HERNANDEZ RN [facility] IntraOp Communication Entry 1 Communication To Family/Significant other Comment START Communication By ROCIO ALCALA RN Date and Time 10/29/20 08:40:00 Last Modified By: TAE HERNANDEZ RN 10/29/20 08:40:48 [facility] IntraOp Counts Verification Entry 1 Entry 2 [...] SJ IntraOp Counts Verification Audit 10/29/20 10:20:15 Teacher Preschool: WASSONSY Modifier: WASSONSY <+> 2 Procedure <+> 2 Count Type <+> 2 Counts Verification Sequence <+> 2 Count Results <+> 2 Count Performed By (Scrub) <+> 2 Count Performed By (RN) [facility] IntraOp Counts Final Entry 1 Procedure Lumbar Fusion Posterior 3 Level Final Count Info Count Type Sponge, Sharps, Miscellaneous Counts Verification Skin Closure/end of Sequence procedure Count Results Correct, surgeon notified Counts Performed By Count Performed By RAFAEL HAAS ST (Scrub) Count Performed By CLARI NORRIS RN (RN) Last Modified By: TAE HERNANDEZ RN 10/29/20 10:24:34 [facility] IntraOp Cultures and Spec Summary Entry 1 Cultrures and Specimens Specimen Ordered: Yes Test(s) Routine/Path-Lab Requested/Final Disposition Last Modified By: TAE HERNANDEZ RN 10/29/20 09:15:02 General Comments: A. EXPLANTED HARDWARE [facility] IntraOp Delays Entry 1 Delay Reason Surgeon late - did not call Duration 13 Minute(s) Last Modified By: TAE HERNANDEZ RN 10/29/20 08:50:02 [facility] IntraOp Departure from OR Entry 1 Integumentary Assessment Integumentary WDL Assessment WDL Transfer/Handoff Transfer to PACU Phase I Handoff Method Phone call Handoff Reported to Gabo Lim RN Post-op Transport Stretcher/Marilyn Via Patient Transport KAREN PEREA, Accompanied by MARY HERNANDEZ MEGHAN, PA Last Modified By: TAE HERNANDEZ RN 10/29/20 10:12:58 [facility] IntraOp Departure from OR Audit 10/29/20 10:12:58 Teacher Preschool: WASSONSY Modifier: WASSONSY <+> 1 Handoff Reported to 10/29/20 08:50:26 Teacher Preschool: WASSONSY Modifier: WASSONSY 1 <*> Post-op Transport Via Bed (including specialty) [facility] IntraOp Drains and Tubes Entry 1 Device Type Alcon Engel round drain Size 15 FR Drain/Tube Activity Inserted Drain/Tube Suction Bulb Drain/Tube Drainage Serosanguineous Device Location OP SITE Method of Drainage Compression Last Modified By: TAE HERNANDEZ RN 10/29/20 10:09:39 [facility] IntraOp Dressing and Packing Entry 1 Type Dressing Location back Wound Dressing Item Other Applied By CIRO HERNANDEZ PA Other Comments NEOSPORIN OINTMENT, COVADERMS Last Modified By: TAE HERNANDEZ RN 10/29/20 09:41:56 [facility] IntraOp Fire Risk Assessment Entry 1 Fire Info Surgical Site or 0- No Incision Above the Xyphoid Open O2 Source 0- No (Mask or Cannula) Available Ignition 1- Yes (ESU, Laser, Light Source) Fire Risk 1 Assessment Score Fire Score Fire Risk Yes Assessment Complete Fire Risk TAE HERNANDEZ brigadier Verified By Fire Risk 10/29/20 08:42:00 Assessment Verified Date/Time Fire Risk Standard Fire Yes Safety Precautions Followed Last Modified By: TAE HERNANDEZ RN 10/29/20 08:42:30 [facility] IntraOp General Case Underwear Trimmer 1 Case Information OR OR 10 [facility] Case Level 1 Room Verified Yes Wound Class I - Clean Specialty SN Neurosurgery Anesthesia Type General ASA Class 3 Diagnosis Preop Diagnosis LUMBAR SPONDYLOLISTHESIS Postop Same As Preop No Postop Diagnosis PLEASE SEE MD NOTES. Last Modified By: TAE HERNANDEZ RN 10/29/20 08:45:22 [facility] IntraOp General Case Data Audit 10/29/20 08:51:32 Teacher Preschool: WASSONSY Modifier: WASSONSY 1 <*> Preop Diagnosis LUMBAR STENOSIS 10/29/20 08:46:36 Teacher Preschool: WASSONSY Modifier: WASSONSY <+> 1 Preop Diagnosis [facility] IntraOp Implant Log Entry 1 Entry 2 Entry 3 Type Tissue Implant Implant (Synthetic) Implant (Synthetic) (Biologic) Implant Log Implant Type Hardware Hardware Tissue Implant Type Bone Implant BONE VIVIGEN FORMABLE SPACR OPAL-RSLV SCR JEREMIAS FIX Identification CELL [id number] Description Implant Quantity 1 2 4 Implant Site OP SITE OP SITE OP SITE Implant Identification Model Number Implant [id number] Identification Serial Number Implant Identification Lot Number Implant Lifenet:Lifenet Synthes:Synthes J&J:Depuy:Depuy Spine Identification Transplant Srv Usa:Spine Regional Economist Name: Implant [id number] Identification Catalog Number Implant Size Implant Has an Yes Expiration Date Implant Expiration 09/30/21 Date Wasted Radioactive Material Time Implanted Tissue Implant Continue for Tissue Implant Documentation Tissue Identification Number Graft Prep Per Regional Economist Instructions: Tissue Preparation Method: Reconstitution Solution: Reconstitution Solution Lot Number Reconstitution Solution Expiration Date: Thawing Solution Thawing Solution Lot Number Thawing Solution Expiration Date Preparation Materials, Other Preparation Materials, Other Lot Number Preparation Materials, Other Expiration Date Tissue Prepared/Processed By Regional Economist Paperwork Completed Implant Type Comment Last Modified By: TAE HERNANDEZ, TAE BARRIOS RN WASSON, SANDRA D, RN 10/29/20 09:41:23 10/29/20 10:03:44 10/29/20 10:03:44 Entry 4 Entry 5 Entry 6 Type Implant (Synthetic) Implant (Synthetic) Implant (Synthetic) Implant Log Implant Type Hardware Hardware Hardware Tissue Implant Type Implant MIS FELA PLY SCRW SET LENNOX PRE LOAD [id number] LENNOX PRE LOAD [id number] Identification [id number] Description Implant Quantity 6 1 1 Implant Site OP SITE OP SITE OP SITE Implant Identification Model Number Implant Identification Serial Number Implant Identification Lot Number Implant J&J:Depuy:Depuy Spine J&J:Depuy:Depuy Spine J&J:Depuy:Depuy Spine Identification Regional Economist Name: Implant [id number] Identification Catalog Number Implant Size Implant Has an Expiration Date Implant Expiration Date Wasted Radioactive Material Time Implanted Tissue Implant Continue for Tissue Implant Documentation Tissue Identification Number Graft Prep Per Regional Economist Instructions: Tissue Preparation Method: Reconstitution Solution: Reconstitution Solution Lot Number Reconstitution Solution Expiration Date: Thawing Solution Thawing Solution Lot Number Thawing Solution Expiration Date Preparation Materials, Other Preparation Materials, Other Lot Number Preparation Materials, Other Expiration Date Tissue Prepared/Processed By Regional Economist Paperwork Completed Implant Type Comment Last Modified By: TAE HERNANDEZ RN WASSON, SANDRA D RN TAE HERNANDEZ RN 10/29/20 10:03:44 10/29/20 10:03:44 10/29/20 10:03:44 [facility] IntraOp Implant Log Audit 10/29/20 10:03:44 Teacher Preschool: DAVIDARLEN Modifier: WASSONSY <+> 2 Implant Identification Description <+> 2 Implant Identification Regional Economist Name: <+> 2 Implant Site <+> 2 Implant Quantity <+> 2 Implant Identification Catalog Number <+> 2 Implant Type <+> 2 Type <+> 3 Implant Identification Description <+> 3 Implant Identification Regional Economist Name: <+> 3 Implant Site <+> 3 Implant Quantity <+> 3 Implant Identification Catalog Number <+> 3 Implant Type <+> 3 Type <+> 4 Implant Identification Description <+> 4 Implant Identification Regional Economist Name: <+> 4 Implant Site <+> 4 Implant Quantity <+> 4 Implant Identification Catalog Number <+> 4 Implant Type <+> 4 Type <+> 5 Implant Identification Description <+> 5 Implant Identification Regional Economist Name: <+> 5 Implant Site <+> 5 Implant Quantity <+> 5 Implant Identification Catalog Number <+> 5 Implant Type <+> 5 Type <+> 6 Implant Identification Description <+> 6 Implant Identification Regional Economist Name: <+> 6 Implant Site <+> 6 Implant Quantity <+> 6 Implant Identification Catalog Number <+> 6 Implant Type <+> 6 Type [facility] IntraOp Intraoperative Assessment Entry 1 Handoff Method [...] Modified By: TAE HERNANDEZ RN 10/29/20 08:51:48 [facility] IntraOp Intraoperative Assessment Audit 10/29/20 08:51:48 Teacher Preschool: HOPEIANARLEN Modifier: DAVIDSY 1 <*> Skin Assessment Verified Yes 1 <*> Handoff Method Bedside/Face to face [facility] IntraOp Intraoperative Equipment Entry 1 Type Equipment Equipment Equipment Abelardo Suction System ID Number [id number] Setting 200 MM HG Intraop Monitoring Electrocardiogram Five lead placement (ECG) Electrode Placement Blood Pressure Non-Invasive BP Device Source Blood Pressure Arm, right upper Location Pulse Oximeter Hand, left Probe Site Antiembolic Devices Antiembolic Devices Sequential compression device, knee high Antiembolic Device Bilateral Location Antiembolic Device [id number] ID Number Antiembolic Device standard Setting Scopes Photo/Video Documentation Photo No Video No Last Modified By: TAE HERNANDEZ RN 10/29/20 08:46:20 [facility] IntraOp Intraoperative Equipment Audit 10/29/20 08:52:26 Teacher Preschool: WASSONSY Modifier: WASSONSY 1 <+> ID Number 1 <*> Setting 200 1 <+> Electrocardiogram (ECG) Electrode Placement 1 <+> Blood Pressure Location 1 <+> Pulse Oximeter Probe Site 1 <+> Blood Pressure Source 1 <+> Antiembolic Device ID Number [facility] IntraOp Medication Admin Entry 1 Entry 2 Entry 3 Medication/Irrigant thrombin 5000units SPNG SURGFOAM SEALR AQUAMANTYS BIPLR topical powder - [id number] Combo Med List Time Administered Route of topical TOPICAL OTHER Administration Dose Dose 5000 1 Unit of Measure units pkt Volume qs Administered By ADDIE VELIZ MD-ADDIE PASCUAL MD-ADDIE PASCUAL MD-SNNegrita Procedure Irrigation Irrigant Volume In Irrigant Volume Out Last Modified By: TAE HERNANDEZ, TAE BARRIOS, TAE BARRIOS RN 10/29/20 08:53:36 10/29/20 08:53:36 10/29/20 08:53:36 Entry 4 Medication/Irrigant Neosporin 15Gm ointment - [id number] Combo Med List Time Administered Route of TOPICAL Administration Dose Dose 1 Unit of Measure pkt Volume Administered By CIRO HERNANDEZ PA Procedure Irrigation Irrigant Volume In Irrigant Volume Out Last Modified By: TAE HERNANDEZ RN 10/29/20 08:53:36 [facility] IntraOp Medication Admin Audit 10/29/20 08:53:36 Teacher Preschool: WASSONSY Modifier: WASSONSY 1 <*> Medication/Irrigant thrombin 5000units topical powder - [id number] <+> 2 Medication/Irrigant <+> 2 Route of Administration <+> 2 Administered By <+> 2 Dose <+> 2 Unit of Measure <+> 3 Medication/Irrigant <+> 3 Route of Administration <+> 3 Administered By <+> 4 Medication/Irrigant <+> 4 Route of Administration <+> 4 Administered By <+> 4 Dose <+> 4 Unit of Measure [facility] IntraOp Patient Positioning Entry 1 Procedure Lumbar [...] Modified By: TAE HERNANDEZ RN 10/29/20 09:05:55 [facility] IntraOp Sign In Entry 1 Patient, Site, [...] Modified By: TAE HERNANDEZ RN 10/29/20 08:54:11 [facility] IntraOp Sign In Audit 10/29/20 08:54:11 Teacher Preschool: HOPEIANSY Modifier: WASSONSY 1 <*> Surgical Site Marked by person Yes performing procedure 1 <*> Difficult Airway/Aspiration Risk No 1 <*> Blood Loss Risk No 1 <*> Blood Identifiers Verified Per Not applicable Policy [facility] IntraOp Sign Out Entry 1 RN Confirmation [...] Modified By: TAE HERNANDEZ RN 10/29/20 09:06:53 [facility] IntraOp Sign Out Audit 10/29/20 10:35:47 Teacher Preschool: MYAH Modifier: WASIANSY <+> 1 RN Sign Out Signature Date/Time [facility] IntraOp Skin Prep Entry 1 Procedure Lumbar Fusion Posterior 3 Level Prescribed Yes Pre-Surgical Prep Completed Prep Area back Intraop Prep Integumentary WDL Assessment WDL Prep Agents DuraPrep Prep by TAE HERNANDEZ, RN Hair Removal Methods No hair removal performed Last Modified By: TAE HERNANDEZ RN 10/29/20 08:45:47 [facility] IntraOp Surgical Procedures Entry 1 Procedure Lumbar Fusion Posterior 3 Level Additional (L3-5 PLIF USING AIRO) Procedure Description Primary Procedure Yes Primary Surgeon ADDIE VELIZ MD-SNU Start 10/29/20 08:39:00 Stop 10/29/20 10:27:00 Anesthesia Type General Specialty SN Neurosurgery Wound Class I - Clean Last Modified By: TAE HERNANDEZ RN 10/29/20 09:08:03 General Comments: CLLINDA [facility] IntraOp Surgical Procedures Audit 10/29/20 10:28:18 Teacher Preschool: MYAH Modifier: WASSONSY 1 <*> Stop [facility] IntraOp Temp Regulation Devices Entry 1 Temp Regulation Temperature Forced Air Warming Regulation Device device Temperature 11207 Regulation Device Serial/Unit Number Temperature Upper body Regulation Site Temperature Device 43 C Setting Temperature KAREN PEREA APRN Regulation Device Applied by Last Modified By: TAE HERNANDEZ RN 10/29/20 08:46:05 [facility] IntraOp Temp Regulation Devices Audit 10/29/20 09:06:09 Teacher Preschool: MYAH Modifier: MYAH <+> 1 Temperature Regulation Device Serial/Unit Number <+> 1 Temperature Device Setting [facility] IntraOP Time Out Entry 1 Procedure to [...] Modified By: TAE HERNANDEZ RN 10/29/20 08:44:19 [facility] IntraOp X-Ray and Images Entry 1 X-Ray/Imaging Type Other Fluoroscopy Type Other Site back Career And Technology Education Teacher Name Delma Escobedo, Diagnostic Electromechanic Protective Devices Yes Used X-Ray and Imaging brainlab intraoperative Comment ct scanner Last Modified By: TAE HERNANDEZ RN 10/29/20 08:46:47 [facility] IntraOp X-Ray and Images Audit 10/29/20 09:06:27 Teacher Preschool: MYAH Modifier: MYAH <+> 1 Career And Technology Education Teacher Name Case Comments <None> Finalized By: DENNYS SANTO Document Signatures Signed By: TAE HERNANDEZ RN 10/29/20 10:35 DENNYS SANTO 10/30/20 16:24 Unfinalized History Date/Time Username Reason for Unfinalizing Freetext Reason for Unfinalizing 10/30/20 16:22 [email or web address] Correct Billing Electronically signed by Kailey [facility] Conversion Biology Department Chair Cerner at 02/08/2023 12:31 PM CDT documented in this encounter Plan of Treatment Not on file documented as of this encounter Visit Diagnoses Not on filedocumented in this encounter
--- OUTSIDE RECORDS SUMMARY | 2025-06-18 09:38 | XMS_ITS | Encounter Summary ---
Author Organization [employer] ([place], [place], [place], [place]) Address [address] [place] [address] Care Team Providers Care Jet Dyeing Machine Operator Name Role Phone Unavailable Primary Care Provider Unavailabl e Encounter Details Date Type Department Care Team (Late st Contact Info) Description 10/26/2020 Transcribed Document [facility] Family Medicine [facility] [place] [address] ProviderFarhan MD [address] [place] [address] Social History Tobacco Use Types [...] - Historical ProviderMD - 10/26/2020 9:18 AM IMAGING MANAGER PAT Adult Entered On: 10/26/2020 9:22 EST [...] Source : Estimated Height Entry Format : [employer]stock Software Height, Feet : 5 ft(Converted to: 152 cm, 60 Inch) Height, Inches : 9 Inch(Converted to: 0 ft 9 Inch, 22.86 cm) Clinical Height : 175.26 cm Weight Source : Standing scale Weight Entry Format : Dolores Clinical Dosing Weight : 106.36 kg Weight, Pounds : 234 lb Body Surface Area (BSA) : 2.21 m2 Body Mass Index : 34.6 kg/m2 (HI) Palmer Body Weight : 70 kg Jolene Lino [...] EST ADL Index Score : 12 Toni Kriby Rn - 10/26/2020 9:18 EST Advance Directive Patient has Advance Directive *Q : No, patient refuses Advance Directive information Toni Kirby Rn - 10/26/2020 9:18 EST Spiritual/Cultural Needs Any Spiritual/Cultural Needs or Requests : Yes Spiritual/Cultural Needs Comment : 10/29/20 Voodoo Preference : Mormon Spiritual/Cultural Needs Comment : 10/29/20 Toni Kirby Rn - 10/26/2020 9:18 EST Hall Suicide Severity Rating Scale (C-SSRS) CSSRS Past [...] RN - 10/29/2020 6:56 EST Support Person/Patient And Rescue Fire Fighter Crash Fire : Yes Support Person/Pt Rep Name : Taylor Silvestre - Support Person/Pt Rep Contact Information : [phone] Want Family/Rep/Phys Notified of Admit : No Toni Kirby Rn - 10/26/2020 9:18 EST Emergency Contact #1 : Taylor Konrad Emergency Contact #1 ` Emergency Contact #1 Relationship : ` Jolene Lino Rn - 10/27/2020 10:51 EST Emergency Contact #2 : ` Emergency Contact #2 Phone Number : ` Emergency Contact #2 Relationship : ` Primary Language : Yi Preferred Communication Mode : Verbal Communication Barrier : None Director Water And Waste Services Needed : No Toni Kirby Rn - [...]
--- OUTSIDE RECORDS SUMMARY | 2025-06-18 09:38 | XMS_ITS | Encounter Summary ---
Author Organization [employer] ([place], [place], [place], [place]) Address [address] [place] [address] Care Team Providers Care Shake Packer Name Role Phone Unavailable Primary Care Provider Unavailbrianna e Encounter Details Date Type Department Care Team (Late st Contact Info) Description 10/31/2020 Transcribed Document [facility] [place] Medicine [address] [place] [address] ProviderFarhan MD [address] [place] [address] Social History Tobacco Use Types [...] - Historical ProviderMD - 10/31/2020 5:00 AM SURVEILLANCE TECHNICIAN Chart Check - Review Order Profile Entered On: 10/31/2020 6:54 EST Performed On: 10/31/2020 5:00 EST by Rebeca Espino RN Chart Check Powerplans Initiated/Discontinued as Appropriate : Yes All Active Orders Reviewed : Yes Rebeca Espino RN - 10/31/2020 6:54 EST documented in this encounter Plan of Treatment Not on file documented as of this encounter Visit Diagnoses Not on filedocumented in this encounter
--- OUTSIDE RECORDS SUMMARY | 2025-06-18 09:38 | XMS_ITS | Encounter Summary ---
Author Organization [employer] ([place], [place], [place], [place]) Address [address] [place] [address] Care Team Providers Care Oracle Erp Developer Name Role Phone Unavailable Primary Care Provider Unavailabl e Encounter Details Date Type Department Care Team (Late st Contact Info) Description 10/31/2020 Transcribed Document [facility] Neurology - [address] [facility] [address] [place] [address] Addie Veliz Jr., MD [address] [place] [address] [address] [place] [address] Social History Tobacco Use Types [...]
--- OUTSIDE RECORDS SUMMARY | 2025-06-18 09:38 | XMS_ITS | Encounter Summary ---
Author Organization [employer] ([place], [place], [place], [place]) Address [address] [place] [address] Care Team Providers Care Dean Of Girls Name Role Phone Unavailable Primary Care Provider Unavailabl e Encounter Details Date Type Department Care Team (Late st Contact Info) Description 10/29/2020 Transcribed Document [facility] Neurology - [address] [facility] [address] [place] [address] Waylon Green Jr., MD [address] [facility] [address] [place] [address] Social History Tobacco Use Types [...] Airo intraoperative CT scan and BrainLAB neuronavigation. PROTECTOR PLATE ATTACHER: Enriqueta Carrillo PA-C. ANESTHESIA: General endotracheal anesthesia. [...] These were Steinmann pins, placed with a [employer] drill under navigation. We used a pre-existing [...] stab incision was used to tunnel a 15-Tongan round epidural JESUS drain. A drain stitch [...] hardware, placement of new hardware, wound closure. /[id number] Waylon Green Jr, MD RDO/AQ / RDO / MODL /[id number] documented in this encounter Plan of Treatment Not on file documented as of this encounter Visit Diagnoses Not on filedocumented in this encounter
--- OUTSIDE RECORDS SUMMARY | 2025-06-18 09:38 | XMS_ITS | Encounter Summary ---
Author Organization [employer] ([place], [place], [place], [place]) Address [address] [place] [address] Care Team Providers Care Child Protective Services Social Worker Name Role Phone Unavailable Primary Care Provider Unavailabl e Encounter Details Date Type Department Care Team (Late st Contact Info) Description 10/30/2020 Transcribed Document [facility] [place] Family Medicine [address] [place] [address] ProviderFarhan MD [address] [place] [address] Social History Tobacco Use Types [...] - Farhan ProviderMD - 10/30/2020 10:00 AM WATER PUMPING STATION ENGINEER Pain Assessment Entered On: 10/30/2020 20:02 EST [...]
--- OUTSIDE RECORDS SUMMARY | 2025-06-18 09:38 | XMS_ITS | Encounter Summary ---
Author Organization [employer] ([place], [place], [place], [place]) Address [address] [place] [address] Care Team Providers Care Registered Pharmacist Name Role Phone Unavailable Primary Care Provider Unavailabl e Encounter Details Date Type Department Care Team (Late st Contact Info) Description 11/04/2020 Transcribed Document [facility] [place] Family Medicine [facility] [place] [address] ProviderFarhan MD [address], [place] [id number] Social History Tobacco Use Types Packs/Day Years [...] - Farhan ProviderMD - 11/04/2020 6:06 PM ROCK CUTTER Patient Resource Center Entered On: 11/04/2020 18:08 EST Performed On: 11/04/2020 18:06 EST by Armida Naidu, News Commentator Patient Resource Center Provider Status : EST Other Established Provider Name : MANJEET HURLEY Patient Phone Number : [phone] Patient Insurance Type : Medicare Source of [...] at ED : Other Primary Language : Setswana Patient Resource [facility] Comment : Patient needs follow up appointment. Called office and patient already has two appointments scheduled with Addie Veliz (2 week staple removal and 4 week post op) Follow Up Needed : Armida Youssef, News Commentator - 11/04/2020 18:06 EST Electronically signed by Alec Bonner Conversion Languages And Literature Instructor Cerner at 02/08/2023 12:17 PM CDT documented in this encounter Plan of Treatment Not on file documented as of this encounter Visit Diagnoses Not on filedocumented in this encounter
--- OUTSIDE RECORDS SUMMARY | 2025-06-18 09:38 | XMS_ITS | Encounter Summary ---
Author Organization [employer] ([place], [place], [place], [place]) Address [address] [place] [address] Care Team Providers Care Trim Setter Name Role Phone Unavailable Primary Care Provider Unavailabl e Encounter Details Date Type Department Care Team (Late st Contact Info) Description 11/02/2020 Transcribed Document [facility] [place] [address] [place] [address] ProviderFarhan MD [address], [place] [id number] Social History Tobacco Use Types Packs/Day Years [...] - Historical ProviderMD - 11/02/2020 6:38 AM TILE GRINDER UM Authorization Entered On: 11/02/2020 6:38 EST Performed On: 11/02/2020 6:38 EST by Diana Garcia, Back End Developer Primary Insurance Authorization Authorization and Policy Numbers : Insurance 1 Health Plan: HU[employer]NA CHOICE PPO Policy Number: [id number] Authorization Number: Insurance Primary Name : [employer] Choice [id number] Authorization Status-Primary : Notification only Auth/Referral Contact Name-Primary : Alfredo Casas Reference Number-Primary : [id number] Authorization Number-Primary : [id number] Number of Days Authorized-Primary : 5 Day(s) Authorized Service Begin Date-Primary : 10/29/2020 EST Authorized Service End Date-Primary : 11/03/2020 EST Authorization Comments-Primary : Authorized per email from Alfredo Muller RN. Historical Authorization Comments-Primary : Comment 1: inpt admission approved by Hum[employer] choice per Availity. (TAQUERIA AGRAWAL Mkt Baby Sitter-Utilization Mgt 11/01/2020 15:33) Comment 2: per availity auth pended (Ca Amaya, Rn-Utilization Review 10/30/2020 10:50) Comment 3: call to [facility]/dr slater office to obtain preauth #. She states no auth # yet. She will call [employer] to check on it and call me back (ROLF LUDWIG, RN-Utilization Review 10/28/2020 13:52) Comment 4: Pt is david for INPT Lumbar Fusion Posterior 3 Level on Sunday10-29-20 Humana Choice: No auth notes in STAR or availity as of yet (DERICK SHIPMAN, Armature Rewinder 10/28/2020 12:39) Diana Garcia, Back End Developer - 11/02/2020 6:38 EST documented in this encounter Plan of Treatment Not on file documented as of this encounter Visit Diagnoses Not on filedocumented in this encounter
--- OUTSIDE RECORDS SUMMARY | 2025-06-18 09:38 | XMS_ITS | Encounter Summary ---
Author Organization [employer] ([place], [place], [place], [place]) Address [address] [place] [address] Care Team Providers Care Payroll Director Name Role Phone Unavailable Primary Care Provider Unavailabl e Encounter Details Date Type Department Care Team (Late st Contact Info) Description 10/29/2020 Transcribed Document [facility] [place] Family Medicine [address] [place] [address] ProviderFarhan MD [address] [place] [address] Social History Tobacco Use Types [...] - Farhan ProviderMD - 10/29/2020 8:[address] LIGHT INSPECTOR [facility] Main OR PACU Summary Primary Physician: ADDIE VELIZ MD-[facility] Finalized Date/Time: 10/29/20 12:13:32 Pt. Name: FRANSISCO CRAVEN/Sex: 1960 Male Med Rec #: [id number] Physician: ADDIE VELIZ MD-SN Financial #: [id number] Pt. Type: I Room/Bed: / Admit/Disch: 09/22/20 10:37:00 - Institution: [facility] Main OR PACU I Case Times Entry 1 In PACU I 10/29/20 10:38:00 Ready for PACU 10/29/20 12:00:00 Discharge Discharge from PACU 10/29/20 12:00:00 I Last Modified By: DANIELLE CLANCY RN 10/29/20 12:13:15 Finalized By: DANIELLE CLANCY, RN Document Signatures Signed By: DANIELLE CLANCY RN 10/29/20 12:13 documented in this encounter Plan of Treatment Not on file documented as of this encounter Visit Diagnoses Not on filedocumented in this encounter
--- OUTSIDE RECORDS SUMMARY | 2025-06-18 09:38 | XMS_ITS | Encounter Summary ---
Author Organization [employer] ([place], [place], [place], [place]) Address [address] [place] [address] Care Team Providers Care Optimization Manager Name Role Phone Unavailable Primary Care Provider Unavailbrianna e Encounter Details Date Type Department Care Team (Late st Contact Info) Description 10/31/2020 Transcribed Document [facility] [place] Medicine [address] [place] [address] ProviderFarhan MD [address] [place], [place] [id number] Social History Tobacco Use Types Packs/Day Years [...] - Historical ProviderMD - 10/31/2020 2:00 AM BACK TENDER PAPER MACHINE Head Of Global Strategic Partnerships Details Entered On: 10/31/2020 2:40 EST Performed [...] Rebeca Espino RN - 10/31/2020 2:40 EST documented in this encounter Plan of Treatment Not on file documented as of this encounter Visit Diagnoses Not on filedocumented in this encounter
--- OUTSIDE RECORDS SUMMARY | 2025-06-18 09:38 | XMS_ITS | Encounter Summary ---
Author Organization [employer] ([place], [place], [place], [place]) Address [address] [place] [address] Care Team Providers Care Groundsman Name Role Phone Unavailable Primary Care Provider Unavailabl e Encounter Details Date Type Department Care Team (Late st Contact Info) Description 10/29/2020 Transcribed Document [facility] Radiology [address] [place] [address] Vicente Orr MD [address] [address] Social History Tobacco Use Types [...] is a 60 yo male admitted to [facility] per Dr. Green for [...] 100 mg intravenous injection 1 Infusion, IntraVENous, W0Qhyab Jardiance 25 mg oral tablet 25 mg [...]
--- OUTSIDE RECORDS SUMMARY | 2025-06-18 09:38 | XMS_ITS | Encounter Summary ---
Author Organization [employer] ([place], [place], [place], [place]) Address [address] [place] [address] Care Team Providers Care Sales Enablement Analyst Name Role Phone Unavailable Primary Care Provider Unavailabl e Encounter Details Date Type Department Care Team (Late st Contact Info) Description 10/29/2020 Transcribed Document [facility] [place] [facility] [place] [address] ProviderFarhan MD [address] [place] [address] Social History Tobacco Use Types [...] - Historical ProviderMD - 10/29/2020 10:00 PM SAS DEVELOPER Pain Assessment Entered On: 10/30/2020 1:23 EST [...]
--- OUTSIDE RECORDS SUMMARY | 2025-06-18 09:38 | XMS_ITS | Encounter Summary ---
Author Organization [employer] ([place], [place], [place], [place]) Address [address] [place] [address] Care Team Providers Care Fruit Canner Name Role Phone Unavailable Primary Care Provider Unavailabl e Encounter Details Date Type Department Care Team (Late st Contact Info) Description 10/29/2020 Transcribed Document [facility] [place] Family Medicine [facility] [place] [address] ProviderFarhan MD [address] [place] [address] Social History Tobacco Use Types [...] - Historical ProviderMD - 10/29/2020 10:34 AM BILLPOSTER Evaluation, Occupational Therapy Entered On: 10/29/2020 15:00 [...] CONNOR WALTON OTR/Desiree - 10/29/2020 14:54 EST Halfway Goals, OT Bathing LTG Grid Goal #1 [...] Electronically signed by Interface, [facility] Conversion Cleaning Laborer Cerner at 02/08/2023 12:33 PM CDT documented in this encounter Plan of Treatment Not on file documented as of this encounter Visit Diagnoses Not on filedocumented in this encounter
--- OUTSIDE RECORDS SUMMARY | 2025-06-18 09:38 | XMS_ITS | Encounter Summary ---
Author Organization [employer] ([place], [place], [place], [place]) Address [address] [place] [address] Care Team Providers Care Director Of Counterintelligence Name Role Phone Unavailable Primary Care Provider Unavailabl e Encounter Details Date Type Department Care Team (Late st Contact Info) Description 10/29/2020 Transcribed Document [facility] [place] Family Medicine [address] [place] [address] ProviderFarhan MD [address] [place], [place] [phone] Social History Tobacco Use Types Packs/Day Years [...] - Historical ProviderMD - 10/29/2020 12:20 PM EDUCATION DEPARTMENT CHAIR Meds to Bed Enrollment Entered On: 10/29/2020 12:21 EST Performed On: 10/29/2020 12:20 EST by Matty Hoover, COUNTER SALES PERSON LEAD Meds to Bed Enrollment Patient Enrollment Decision: : Yes/enroll in meds to bed program Mtaty Hoover COUNTER SALES PERSON LEAD - 10/29/2020 12:21 EST documented in this encounter Plan of Treatment Not on file documented as of this encounter Visit Diagnoses Not on filedocumented in this encounter
--- OUTSIDE RECORDS SUMMARY | 2025-06-18 09:38 | XMS_ITS | Encounter Summary ---
Author Organization [employer] ([place], [place], [place], [place]) Address [address] [place] [address] Care Team Providers Care Ornamental Ironworker Name Role Phone Unavailable Primary Care Provider Unavailabl e Encounter Details Date Type Department Care Team (Late st Contact Info) Description 10/28/2020 Transcribed Document [facility] [place] [address] [place] [address] ProviderFarhan MD [address] [place] [address] Social History Tobacco Use [...] - Historical ProviderMD - 10/28/2020 1:52 PM JEWELRY CASTING MODEL MAKER UM Authorization Entered On: 10/28/2020 13:54 EST Performed On: 10/28/2020 13:52 EST by ROLF LUDWIG RN-Utilization Review Primary Insurance Authorization Authorization and Policy Numbers : Insurance 1 Health Plan: HU[employer]NA CHOICE PPO Policy Number: [id number] Authorization Number: Insurance Primary Name : Hum[employer] Choice [id number] Auth/Referral Contact Name-Primary : Alfredo Casas Authorization [...] or availity as of yet (DERICK SHIPMAN, Roll Form Operator 10/28/2020 12:39) ROLF LUDWIG, RN-Utilization Review - 10/28/2020 13:52 EST Electronically signed by [facility], [facility] Conversion Hog Man Cerner at 02/08/2023 12:33 PM CDT documented in this encounter Plan of Treatment Not on file documented as of this encounter Visit Diagnoses Not on filedocumented in this encounter
--- OUTSIDE RECORDS SUMMARY | 2025-06-18 09:38 | XMS_ITS | Encounter Summary ---
Author Organization [employer] ([place], [place], [place], [place]) Address [address] [place] [address] Care Team Providers Care Uniform Designer Name Role Phone Unavailable Primary Care Provider Unavailabl e Encounter Details Date Type Department Care Team (Late st Contact Info) Description 10/29/2020 Transcribed Document [facility] [place] Family Medicine [facility] [place] [address] ProviderFarhan MD [address] [place] [address] Social History Tobacco Use Types [...] - Historical ProviderMD - 10/29/2020 7:06 AM TIN WORKER Admission History, Adult Entered On: 10/29/2020 [...] Ambulatory Legal Guardian : Unaccompanied Support Person/Patient Hand Chain Maker : Yes Support Person/Pt Rep Name : Taylor Silvestre - Support Person/Pt Rep Contact Information : [phone] Want Family/Rep/Phys Notified of Admit : No Emergency Contact #1 : Taylorwilliam Silvestre Emergency Contact #1 ` Emergency Contact #1 Relationship : ` Emergency Contact #2 : ` Emergency Contact #2 Phone Number : ` Emergency Contact #2 Relationship : ` Primary Language : Bengali Preferred Communication Mode : Verbal Communication Barrier : None Clip And Hanger Attacher Needed : No DARIUS VELIZ RN - [...] Scale Risk Level : 25-45 Medium Risk [place] Fall Interventions : Adequate lighting, Assistive devices [...] Source : Estimated Height Entry Format : [place] Height, Feet : 5 ft(Converted to: 152 cm, 60 Inch) Height, Inches : 9 Inch(Converted to: 0 ft 9 Inch, 22.86 cm) Clinical Height : 175.26 cm Weight Source : Standing scale Weight Entry Format : [place] Clinical Dosing Weight : 106.36 kg Weight, Pounds : 234 lb Body Surface Area (BSA) : 2.21 m2 Body Mass Index : 34.6 kg/m2 ([place]) [place] Body Weight : 70 kg DARIUS VELIZ [...] DARIUS VELIZ RN - 10/29/2020 19:45 EST [place] Suicide Severity Rating Scale (C-SSRS) CSSRS Past [...] 10/29/2020 19:45 EST Electronically signed by Kailey [facility] Conversion Superintendent Laundry Cerner at 02/08/2023 12:12 PM CDT documented in this encounter Plan of Treatment Not on file documented as of this encounter Visit Diagnoses Not on filedocumented in this encounter
--- OUTSIDE RECORDS SUMMARY | 2025-06-18 09:38 | XMS_ITS | Encounter Summary ---
Author Organization [employer] ([place], [place], [place], [place]) Address [address] [place] [address] Care Team Providers Care Parimutuel Ticket Checker Name Role Phone Unavailable Primary Care Provider Unavailabl e Encounter Details Date Type Department Care Team (Late st Contact Info) Description 10/31/2020 Transcribed Document [facility] [place] [address] [place] [address] ProviderFarhan MD [address] [place] [address] Social History Tobacco Use Types [...] - Farhan ProviderMD - 10/31/2020 2:52 PM CATH LAB [facility] [place] [address] RFANSISCO CRAVEN :1960 Visit Time:10/29/2020 Your Visit Summary [...] 1) tramadol (Ultram)--this will be replaced by Eden (hydrocodone-acetaminophen) call MD for fever greater than 101 degrees for 24 hours; increased pain,redness or swelling and/or drainage after 5 days Follow-Up Appointments Follow Up with ADDIE VELIZ When Within 2 weeks Nirali hylton Where: [address] [place] [address] [address] [place] [address] [employer] (1) Medications What How Much When Instructions Next Dose acetaminophen-hydrocodone (Eden 10 mg-325 mg oral tablet) 1 Tablet(s) [...] these instructions at home: Medicines ??? Take arqc-mzi-lcecwew and prescription medicines only as told by [...] cannot use soap and water, use hand ski patrol. ? Change your bandage as told by [...] your pee (urine) pale yellow. ? Take fhow-lrs-zrtuamj or prescription medicines. ? Eat foods that [...] 02/01/2012 Document Revised: 01/29/2020 Document Reviewed: 01/22/2018 [employer] Patient Education ?? 2020 [employer]ix. acetaminophen and hydrocodone (a SEET a MIN oh fen and michael droe KOE done) Hycet, Lorcet, Eden, Verdrocet, Vicodin, Xodol, Zamicet What is the [...] may report side effects to FDA at 1-233-YHP-1088. What other drugs will affect acetaminophen and [...] affect acetaminophen and hydrocodone, including prescription and kxcs-kwu-ruagmdh medicines, vitamins, and herbal products. Not all [...] to ensure that the information provided by [employer]. ('[employer]') is accurate, up-to-date, and complete, but no guarantee is made to that effect. Drug information contained herein may be time sensitive. [employer] information has been compiled for use by healthcare practitioners and consumers in the [place] and therefore [employer] does not warrant that uses outside of the [place] are appropriate, unless specifically indicated otherwise. [employer] drug information does not endorse drugs, diagnose patients or recommend therapy. [employer] drug information is an informational resource designed [...] with your doctor, nurse or pharmacist. Copyright 5789-4604 [employer]. Version: 16.01. Revision Date: 11/12/2019. Emergency Awareness [...] Assistance with quitting is available by contacting 8-571-QIID-NOW. This is a free resource providing counseling, [...] range between ( 0.0 and 7.0 ) Carver #: 1.07 K/uL -- Normal range between ( 0.16 and 1.00 ) Eos #: 0.03 x10(3)/uL -- Normal range between ( 0.00 and 0.80 ) Carver %: 7.3 % -- Normal range between [...] ) Urine Bilirubin Dipstick: Negative Urine Specific [place]: *1.028 -- Normal range between ( 1.005 [...] was given the opportunity to ask questions. Patient/Box Builder Name: Patient/Box Builder Signature: Relationship to Patient: Clinician/Hospital Box Builder Signature: Date: Electronically signed by Kailey, Louis Conversion Latex Ribbon Machine Operator Vitorner at 02/08/2023 12:40 PM CDT documented in this encounter Plan of Treatment Not on file documented as of this encounter Visit Diagnoses Not on filedocumented in this encounter
--- OUTSIDE RECORDS SUMMARY | 2025-06-18 09:38 | XMS_ITS | Encounter Summary ---
Author Organization [employer] ([place], [place], [place], [place]) Address [address] [place] [address] Care Team Providers Care Precision Aircraft Structure Assembler Name Role Phone Unavailable Primary Care Provider Unavailabl e Encounter Details Date Type Department Care Team (Late st Contact Info) Description 10/30/2020 Transcribed Document [facility] [place] [facility] [place] [address] ProviderFarhan MD [address] [place] [address] Social History Tobacco Use Types [...] - Historical ProviderMD - 10/30/2020 10:50 AM VIRTUAL REALITY SPECIALIST UM Authorization Entered On: 10/30/2020 10:51 EST Performed On: 10/30/2020 10:50 EST by Ca Amaya Rn-Utilization Review Primary Insurance Authorization Authorization and Policy Numbers : Insurance 1 Health Plan: HUMANA CHOICE PPO Policy Number: [id number] Authorization Number: Insurance Primary Name : Humana Choice [id number] Authorization Status-Primary : Pending Auth/Referral Contact Name-Primary : Alfredo Casas Reference Number-Primary : [id number] Authorization Number-Primary : Pending Authorized Service Begin [...] or availity as of yet (DERICK SHIPMAN, Shop Mechanic Helper 10/28/2020 12:39) Ca Amaya, Rn-Utilization Review - 10/30/2020 10:50 EST Electronically signed by Kailey, [facility] Conversion Manager Animal Cerner at 02/08/2023 12:12 PM CDT documented in this encounter Plan of Treatment Not on file documented as of this encounter Visit Diagnoses Not on filedocumented in this encounter
--- OUTSIDE RECORDS SUMMARY | 2025-06-18 09:38 | XMS_ITS | Encounter Summary ---
Author Organization [employer] ([place], [place], [place], [place]) Address [address] [place] [address] Care Team Providers Care Health And Physical Education Teacher Name Role Phone Unavailable Primary Care Provider Unavailabl e Encounter Details Date Type Department Care Team (Late st Contact Info) Description 10/28/2020 Transcribed Document [facility] [place] Family Medicine [address] [place] [address] ProviderFarhan MD [address] [place] [address] Social History Tobacco Use Types [...] - Historical ProviderMD - 10/28/2020 12:39 PM BAND SPLICER UM Authorization Entered On: 10/28/2020 12:40 EST Performed On: 10/28/2020 12:39 EST by DERICK SHIPMAN, Care Management Specialist Primary Insurance Authorization Authorization and Policy Numbers : Insurance 1 Health Plan: HU[employer]NA CHOICE PPO Policy Number: [id number] Authorization Number: Insurance Primary Name : Humana Choice [id number] Auth/Referral Contact Name-Primary : Alfredo Casas Authorization [...] : No Authorization Comments Found DERICK SHIPMAN, Care Management Specialist - 10/28/2020 12:39 EST Electronically signed by Kailey, [facility] Conversion Torch Straightener And Heater Cerner at 02/08/2023 12:46 PM CDT documented in this encounter Plan of Treatment Not on file documented as of this encounter Visit Diagnoses Not on filedocumented in this encounter
--- OUTSIDE RECORDS SUMMARY | 2025-06-18 09:38 | XMS_ITS | Clinical Summary ---
Author Organization [facility] Address [address] [place] [address] Care Team Providers Care Yarn Examiner Name Role Phone Maycol Erickson PA-C Primary Care Provider [phone] Allergies Active Allergy Reactions Criticality Noted Date [...] Hemoglobin A1C 5.1 4.00 - 6.00 % [facility] Comment: DF by IF @ 10/12/2014 11:49 The [place] [employer] recommends maintenance of Hemoglobin A1C at 7.0% or lower. Goals for Hemoglobin A1C reduction may need to be modified if hypoglycemia is a problem. Mean Bld Glu Estim. 93 mg/dL [facility] Blood specimen (specimen) 10/12/2014 10:50 AM EST Narrative [facility] - 10/12/2014 11:49 AM EST Specimen Type: Blood [facility] Santo Klein Jr., MD LAB BLOOD ORDERABLE S Final Result [facility] [address] [place] [address], from Last 3 Months or Most Recently Relevant to Health Maintenance Insurance [place] [address] MEDICARE ADVANTAGE Care Teams Yarn Examiner Relationship Specialty Start Date End Date Maycol Erickson PA-C [address] [place] [address] PCP - General Physician Nursing Care Attendant 08/15/16
--- OUTSIDE RECORDS SUMMARY | 2025-06-18 09:38 | XMS_ITS | Encounter Summary ---
Author Organization [employer] ([place], [place], [place], [place]) Address [address] [place] [address] Care Team Providers Care Scrap Sawyer Name Role Phone Unavailable Primary Care Provider Unavailabl e Encounter Details Date Type Department Care Team (Late st Contact Info) Description 11/01/2020 Transcribed Document [facility] [place] [address] [place] [address] ProviderFarhan MD [address] [place] [address] Social History Tobacco Use Types [...] - Historical ProviderMD - 11/01/2020 3:33 PM TAX ATTORNEY UM Authorization Entered On: 11/01/2020 15:33 EST Performed On: 11/01/2020 15:33 EST by TAQUERIA AGRAWAL Mkt College Counselor-Utilization Mgt Primary Insurance Authorization Authorization and Policy Numbers : Insurance 1 Health Plan: [employer] PPO Policy Number: [id number] Authorization Number: Insurance Primary Name : [employer] [id number] Authorization Status-Primary : Admit approved Auth/Referral Contact Name-Primary : Alfredo R Reference Number-Primary : [id number] Authorization Number-Primary : [id number] Number of Days Authorized-Primary : 5 Day(s) [...] or availity as of yet (DERICK SHIPMAN, Food Service Supervisor 10/28/2020 12:39) TAQUERIA AGRAWAL Mkt College Counselor-Utilization Mgt - 11/01/2020 15:33 EST Electronically signed by Kailey [facility] Conversion Disaster Or Damage Control Specialist Cerner at 02/08/2023 12:13 PM CDT documented in this encounter Plan of Treatment Not on file documented as of this encounter Visit Diagnoses Not on filedocumented in this encounter
--- OUTSIDE RECORDS SUMMARY | 2025-06-18 09:39 | XMS_ITS | Encounter Summary ---
Author Organization [employer] ([place], [place], [place], [place]) Address [address] [place] [address] Care Team Providers Care Cellar Pumper Name Role Phone Unavailable Primary Care Provider Unavailabl e Encounter Details Date Type Department Care Team (Late st Contact Info) Description 10/31/2020 Transcribed Document [facility] Family Medicine [address] [place] [address] ProviderFarhan MD [address] [place] [address] Social History Tobacco Use Types [...] - Farhan ProviderMD - 10/31/2020 2:40 PM RIBBON HANKING MACHINE OPERATOR [facility] [place] [address] FRANSISCO CRAVEN :1960 Visit Time:10/29/2020 Your [...] When Within 2 weeks Nirali hylton Where: [address] [place] [address] [place] [id number] [place] (1) Medications What How Much When Instructions [...] these instructions at home: Medicines ??? Take iklo-nxx-mttiftm and prescription medicines only as told by [...] cannot use soap and water, use hand per diem rn. ? Change your bandage as told by [...] your pee (urine) pale yellow. ? Take ojgw-xyc-ttpjwkq or prescription medicines. ? Eat foods that [...] 02/01/2012 Document Revised: 01/29/2020 Document Reviewed: 01/22/2018 [employer] Patient Education ?? 2020 Germmatters. acetaminophen and hydrocodone (a SEET a MIN oh fen and michael droe KOE done) Hycet, Lorcet, [place], Verdrocet, Vicodin, Xodol, Zamicet What is the [...] may report side effects to FDA at 3-908-FCK-8866. What other drugs will affect acetaminophen and [...] affect acetaminophen and hydrocodone, including prescription and rmvo-ykn-mixrcms medicines, vitamins, and herbal products. Not all [...] to ensure that the information provided by [employer]. ('[employer]') is accurate, up-to-date, and complete, but no guarantee is made to that effect. Drug information contained herein may be time sensitive. Fundly information has been compiled for use by healthcare practitioners and consumers in the [place] and therefore [employer] does not warrant that uses outside of the [place] are appropriate, unless specifically indicated otherwise. [employer] SAs drug information does not endorse drugs, diagnose patients or recommend therapy. [employer] SAs drug information is an informational resource designed [...] effective or appropriate for any given patient. [facility] does not assume any responsibility for any aspect of healthcare administered with the aid of information [facility] provides. The information contained herein is not intended to cover all possible uses, directions, precautions, warnings, drug interactions, allergic reactions, or adverse effects. If you have questions about the drugs you are taking, check with your doctor, nurse or pharmacist. Copyright 0220-7963 [facility]. Version: 16.01. Revision Date: 11/12/2019. Emergency Awareness [...] Assistance with quitting is available by contacting 8-190-TECN-NOW. This is a free resource providing counseling, [...] range between ( 0.0 and 7.0 ) [place] #: 1.07 K/uL -- Normal range between ( 0.16 and 1.00 ) [place] #: 0.03 x10(3)/uL -- Normal range between ( 0.00 and 0.80 ) [place] %: 7.3 % -- Normal range between [...] ) Urine Bilirubin Dipstick: Negative Urine Specific [place]: *1.028 -- Normal range between ( 1.005 [...] was given the opportunity to ask questions. Patient/Welding Teacher Name: Patient/Welding Teacher Signature: Relationship to Patient: Clinician/Hospital Welding Teacher Signature: Date: documented in this encounter Plan of Treatment Not on file documented as of this encounter Visit Diagnoses Not on filedocumented in this encounter
--- OUTSIDE RECORDS SUMMARY | 2025-06-18 09:39 | XMS_ITS | Encounter Summary ---
Author Organization [facility] ([place], [place], [place], [place]) Address [address] [place] [address] Care Team Providers Care Construction Job Cost Estimator Name Role Phone Unavailable Primary Care Provider Unavailabl e Encounter Details Date Type Department Care Team (Late st Contact Info) Description 10/30/2020 Transcribed Document [facility] [place] Family Medicine [facility] [place] [address] ProviderFarhan MD [address] [place] [address] Social History Tobacco Use Types [...] - Historical ProviderMD - 10/30/2020 10:51 AM SPOOLER OPERATOR UM Authorization Entered On: 10/30/2020 10:51 EST Performed On: 10/30/2020 10:51 EST by Ca Amaya Rn-Utilization Review Primary Insurance Authorization Authorization and Policy Numbers : Insurance 1 Health Plan: HUMANA CHOICE PPO Policy Number: [id number] Authorization Number: Insurance Primary Name : Hum[employer] Choice [id number] Authorization Status-Primary : Pending Auth/Referral Contact Name-Primary : Alfredo Casas Reference Number-Primary : [id number] Authorization Number-Primary : Pending Authorized Service Begin [...] or availity as of yet (DERICK SHIPMAN, Ross Lift Operator 10/28/2020 12:39) Ca Amaya, Rn-Utilization Review - 10/30/2020 10:51 EST documented in this encounter Plan of Treatment Not on file documented as of this encounter Visit Diagnoses Not on filedocumented in this encounter
--- OUTSIDE RECORDS SUMMARY | 2025-06-18 09:39 | XMS_ITS | Encounter Summary ---
Author Organization [facility] Address [address] [place] [address] Care Team Providers Care Activities Coordinator Name Role Phone Ministerio Rosas MD Unavailable Khadijah Dolan APRN Primary Care Provider [phone]- [phone] Reason for Visit * Reason Onset Date Comments Confirmed appt 06/03/2025 Encounter Details Date Type Department Care Team (Late st Contact Info) Description 06/03/2025 Telephone [facility] [address] [place] [address] Ministerio Rosas MD [address] [place] [address] Confirmed appt Social History Tobacco [...] Info) Description 06/23/2025 8:40 AM EDT Appointment [facility] [address] [place] [address] 06/23/2025 10:00 AM EDT Office Visit [facility] [address] [place] [address] Ministerio Rosas MD [address] [place] [address] documented as of this encounter [...] documented as of this encounter Care Teams Activities Coordinator Relationship Specialty Start Date End Date Khadijah Dolan APRN [address] [place] [address] PCP - General 05/04/25 Ministerio Rosas MD [address] [place] [address] Surgeon Urology 09/23/24 documented as of this encounter
--- OUTSIDE RECORDS SUMMARY | 2025-06-18 09:39 | XMS_ITS | Encounter Summary ---
Author Organization [employer] ([place], [place], [place], [place]) Address [address] [place] [address] Care Team Providers Care Facilities Locator Name Role Phone Unavailable Primary Care Provider Unavailbrianna e Encounter Details Date Type Department Care Team (Late st Contact Info) Description 10/31/2020 Transcribed Document [facility] [place] Medicine [facility] [address] ProviderFarhan MD [address] [place] [address] Social History Tobacco Use Types [...] - Historical ProviderMD - 10/31/2020 6:00 AM APARTMENT LEASING AGENT Pain Assessment Entered On: 10/31/2020 6:55 EST [...] form. Electronically signed by Louis Bonner Conversion Artificial Log Machine Operator Cerner at 02/08/2023 12:13 PM CDT documented in this encounter Plan of Treatment Not on file documented as of this encounter Visit Diagnoses Not on filedocumented in this encounter
--- OUTSIDE RECORDS SUMMARY | 2025-06-18 09:39 | XMS_ITS | Encounter Summary ---
Author Organization [employer] ([place], [place], [place], [place]) Address [address] [place] [address] Care Team Providers Care Medical Assembler Name Role Phone Unavailable Primary Care Provider Unavailabl e Encounter Details Date Type Department Care Team (Late st Contact Info) Description 10/30/[address] [facility] Family Medicine [address] [place] [address] ProviderFarhan MD [address] [place] [address] Social History Tobacco Use Types [...] - Historical ProviderMD - 10/30/2020 5:00 AM HEALTHCARE ECONOMICS CONSULTANT Chart Check - Review Order Profile Entered On: 10/30/2020 5:11 EST Performed On: 10/30/2020 5:00 EST by Sam Anton, RN Chart Check Powerplans Initiated/Discontinued as Appropriate : Yes All Active Orders Reviewed : Yes Sam Anton RN - 10/30/2020 5:11 EST Electronically signed by Kailey [facility] Conversion Technical Asst Mario at 02/08/2023 12:44 PM CDT documented in this encounter Plan of Treatment Not on file documented as of this encounter Visit Diagnoses Not on filedocumented in this encounter
--- OUTSIDE RECORDS SUMMARY | 2025-06-18 09:39 | XMS_ITS | Encounter Summary ---
Author Organization [employer] ([place], [place], [place], [place]) Address [address] [place] [address] Care Team Providers Care Commuter Pilot Name Role Phone Unavailable Primary Care Provider Unavailbrianna e Encounter Details Date Type Department Care Team (Late st Contact Info) Description 10/31/2020 Transcribed Document [place] Family Medicine [facility] [place] [address] ProviderFarhan MD [address] [place] [address] Social History Tobacco Use Types [...] - Historical ProviderMD - 10/31/2020 2:00 AM MILK HAULER Pain Assessment Entered On: 10/31/2020 6:55 EST [...]
--- OUTSIDE RECORDS SUMMARY | 2025-06-18 09:39 | XMS_ITS | Encounter Summary ---
Author Organization [employer] ([place], [place], [place], [place]) Address [address] [place] [address] Care Team Providers Care Oven Tender Bagels Name Role Phone Unavailable Primary Care Provider Unavailabl e Encounter Details Date Type Department Care Team (Late st Contact Info) Description 10/30/2020 Transcribed Document [facility] [place] Family Medicine [address] [place] [address] ProviderFarhan MD [address] [place] [address] Social History Tobacco Use Types [...] - Historical ProviderMD - 10/30/2020 10:50 AM PERSONAL CLOTHING LAUNDRY AIDE UM Authorization Entered On: 10/30/2020 10:50 EST Performed On: 10/30/2020 10:50 EST by Ca Amaya Rn-Utilization Review Primary Insurance Authorization Authorization and Policy Numbers : Insurance 1 Health Plan: HUMANA CHOICE PPO Policy Number: [id number] Authorization Number: Insurance Primary Name : Humana Choice [id number] Authorization Status-Primary : Pending Auth/Referral Contact Name-Primary : Alfredo Casas Reference Number-Primary : [id number] Authorization Number-Primary : Pending, No Notes in [...] or availity as of yet (DERICK SHIPMAN, Legal Consultant 10/28/2020 12:39) Ca Amaya, Rn-Utilization Review - 10/30/2020 10:50 EST Electronically signed by Kailey [facility] Conversion Superintendent Circus Cerner at 02/08/2023 12:35 PM CDT documented in this encounter Plan of Treatment Not on file documented as of this encounter Visit Diagnoses Not on filedocumented in this encounter
--- OUTSIDE RECORDS SUMMARY | 2025-06-18 09:39 | XMS_ITS | Encounter Summary ---
Author Organization [employer] ([place], [place], [place], [place]) Address [address] [place] [address] Care Team Providers Care Collector Of Internal Revenue Name Role Phone Unavailable Primary Care Provider Unavailabl e Encounter Details Date Type Department Care Team (Late st Contact Info) Description 11/03/2020 Transcribed Document [facility] Family Medicine [facility] [place] [address] ProviderFarhan MD [address] [place] [address] Social History Tobacco Use Types [...] - Historical ProviderMD - 11/03/2020 10:02 AM MODEL MAKER PLASTIC Patient: FRANSISCO CRAVEN Age: 60 Years Sex: Male : 1960 Admit Date 10/29/2020 12:20 Discharge Date 10/31/2020 15:52 Primary Care Provider MANJEET HURLEY, [facility] Discharge Diagnosis Lumbar stenosis 10/31/2020 M48.061 [...] 100 mg intravenous injection 1 Infusion, IntraVENous, A3Vobnv Jardiance 25 mg oral tablet 25 mg = 1 Tab, Oral, QAM levothyroxine 200 mcg, Oral, Daily lisinopril 40 mg, Oral, Daily loratadine 10 mg oral tablet 10 mg = 1 Tab, Oral, Daily Lyrica 225 mg oral capsule 225 mg = 1 Cap, Oral, BID metFORMIN 1,000 mg, Oral, BID Kechi 10 mg-325 mg oral tablet 1 Tab, [...]
--- OUTSIDE RECORDS SUMMARY | 2025-06-18 09:39 | XMS_ITS | Clinical Summary ---
Author Organization [employer] ([place], [place], [place], [place]) Address [address] [place] [address] Care Team Providers Care Fisher Gill Net Name Role Phone Unavailable Primary Care Provider [...] Date Keyon rded Speak language other than Uzbek at home Not on file 10/30/2023 Want [...]
--- OUTSIDE RECORDS SUMMARY | 2025-06-18 09:39 | XMS_ITS | Encounter Summary ---
Author Organization [employer] ([place], [place], [place], [place]) Address [address] [place] [address] Care Team Providers Care Piping Drafter Name Role Phone Unavailable Primary Care Provider Unavailabl e Encounter Details Date Type Department Care Team (Late st Contact Info) Description 10/31/2020 Transcribed Document [facility] [place] [facility] Family Medicine [facility] [place] [address] ProviderFarhan MD [address] [place] [id number] Social History Tobacco Use Types Packs/Day Years [...] - Historical ProviderMD - 10/31/2020 3:22 PM ASSOCIATE PUBLISHER Discharge Summary, PT Entered On: 10/31/2020 15:23 [...] Chase PHYSICAL THERAPIST - 10/31/2020 15:22 EST Director Search Goals Mobility/Bed Mobility LTG PT Grid Goal [...]
--- OUTSIDE RECORDS SUMMARY | 2025-06-18 09:39 | XMS_ITS | Encounter Summary ---
Author Organization Healthcare Address [address] [place] [address] Care Team Providers Care Peoplesoft Functional Analyst Name Role Phone Nadja Lara MD Primary Care Provider [phone]- [phone] Ministerio Rosas MD Unavailable [phone] Khadijah Dolan APRN Primary Care Provider [phone]- [phone] Encounter Details Date Type Department Care Team (Late st Contact Info) Description 05/02/2023 Lab Requisition [facility] [address] [place] [address] Zulay Garcia PA [address] [facility] [address] [place] [address] Right testicular pain Social History Tobacco Use [...] [facility] [address] [place] [address] 06/23/2025 10:00 AM EDT Office Visit [facility] [address] [place] [address] Ministerio Rosas MD [address] [place] [address] documented as of this encounter Procedures Procedure Name Priority Date/Time Associated Diagnosis Comments SURGICAL PATHOLOGY CONSULT Routine 05/02/2023 2:18 PM EDT Right testicular pain documented in this encounter Results * Surgical Pathology Consult (05/02/2023 2:18 PM EDT) Case Report Sugical Pathology Consult Case: [id number] Authorizing Provider: Zulay Garcia PA Collected: 05/02/20238 Ordering Location: [facility] Lab Received: 05/02/2023 1418 Pathologist: Connor Suarez MD Specimen: Testicle, 05/03/2023 5:33 PM EDT [facility] Final Diagnosis OUTSIDE CASE: COLLECTED ON 03/13/2023. A. TESTICLE AND EPIDIDYMIS, RIGHT, EXCISION: - HYDROCELE B. 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 Received along with a corresponding pathology report from [facility] are 6 slide(s) labeled outside case: collected [...] ORDERABLES Fi nal Result [facility] [address] [place] [address] documented in this encounter Visit Diagnoses Diagnosis Right testicular pain documented in this encounter Additional Health Concerns Infection Onset Date Last Indicated 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 documented as of this encounter Care Teams Peoplesoft Functional Analyst Relationship Specialty Start Date End Date Nadja Lara MD [address] [place], [place] [address] PCP - General 03/04/21 05/03/25 Khadijah Dolan APRN [address] [place] [address] PCP - General 05/04/25 Ministerio Rosas MD [address] [facility] [address] [place] [address] Surgeon Urology 09/23/24 documented as of this encounter
--- OUTSIDE RECORDS SUMMARY | 2025-06-18 09:39 | XMS_ITS | Encounter Summary ---
Author Organization Healthcare Address [address] [place] [address] Care Team Providers Care Intranet Specialist Name Role Phone Nadja Lara MD Primary Care Provider [phone]- [phone] Ministerio Rosas MD Unavailable [phone] Khadijah Dolan APRN Primary Care Provider +1- [phone] Encounter Details Date Type Department Care Team (Late st Contact Info) Description 05/02/2023 Lab Requisition [facility] [address] [place] [address] Right testicular pain Social History Tobacco Use [...] Info) Description 06/23/2025 8:40 AM EDT Appointment [facility] [address] [place] [address] 06/23/2025 10:00 AM EDT Office Visit [place] [facility] [address] [place] [address] Ministerio Rosas MD [address] [place] [address] documented as of this encounter Visit Diagnoses Diagnosis Right testicular pain documented in this encounter Additional Health Concerns Infection Onset Date Last Indicated 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 documented as of this encounter Care Teams Intranet Specialist Relationship Specialty Start Date End Date Nadja Lara MD [address] [place] [id number] PCP - General 03/04/21 05/03/25 Khadijah Dolan APRN [address] [place] [address] PCP - General 05/04/25 Ministerio Rosas MD [address] [address] Surgeon Urology 09/23/24 documented as of this encounter
--- OUTSIDE RECORDS SUMMARY | 2025-06-18 09:39 | XMS_ITS | Encounter Summary ---
Author Organization [employer] ([place], [place], [place], [place]) Address [address] [place] [address] Care Team Providers Care Transformer Shop Supervisor Name Role Phone Unavailable Primary Care Provider Unavailabl e Encounter Details Date Type Department Care Team (Late st Contact Info) Description 10/31/2020 Transcribed Document [facility] Family Medicine [address] [place] [address] ProviderFarhan MD [address] [place], [place] [id number] Social History Tobacco Use Types Packs/Day Years [...] - Historical ProviderMD - 10/31/2020 2:36 PM CPO Stroke/Warfarin Instructions Entered On: 10/31/2020 14:36 EST [...]
--- OUTSIDE RECORDS SUMMARY | 2025-06-18 09:39 | XMS_ITS | Encounter Summary ---
Author Organization [employer] ([place], [place], [place], [place]) Address [address] [place] [address] Care Team Providers Care Financial Reserve Clerk Name Role Phone Unavailable Primary Care Provider Unavailabl e Encounter Details Date Type Department Care Team (Late st Contact Info) Description 10/30/2020 Transcribed Document [facility] [place] [address] [place] [address] ProviderFarhan MD [address] [place], [place] [id number] Social History Tobacco Use Types Packs/Day Years [...] - Historical ProviderMD - 10/30/2020 2:00 AM SADDLE LINING STITCHER Trade Promotion Analyst Details Entered On: 10/30/2020 1:24 EST Performed [...] 10/30/2020 1:24 EST Electronically signed by Kailey [facility] Conversion Prospect Manager Cerner at 02/08/2023 12:39 PM CDT documented in this encounter Plan of Treatment Not on file documented as of this encounter Visit Diagnoses Not on filedocumented in this encounter
--- OUTSIDE RECORDS SUMMARY | 2025-06-18 09:39 | XMS_ITS | Encounter Summary ---
Author Organization [employer] ([place], [place], [place], [place]) Address [address] [place] [address] Care Team Providers Care Clerical Specialist Name Role Phone Unavailable Primary Care Provider Unavailabl e Encounter Details Date Type Department Care Team (Late st Contact Info) Description 10/30/2020 Transcribed Document [facility] [place] [facility] [place] [address] ProviderFarhan MD [address] [place] [address] Social History Tobacco Use Types [...] - Farhan ProviderMD - 10/30/2020 2:00 PM BODY WIRER Pain Assessment Entered On: 10/30/2020 20:02 EST [...]
--- OUTSIDE RECORDS SUMMARY | 2025-06-18 09:39 | XMS_ITS | Encounter Summary ---
Author Organization [employer] ([place], [place], [place], [place]) Address [address] [place] [address] Care Team Providers Care Calculation Clerk Name Role Phone Unavailable Primary Care Provider Unavailabl e Encounter Details Date Type Department Care Team (Late st Contact Info) Description 10/30/[address] [facility] [place] [address] [place] [address] ProviderFarhan MD [address] [place] [address] Social History Tobacco Use Types [...] - Historical ProviderMD - 10/30/2020 10:45 AM HEAD END DESIZING MACHINE OPERATOR UM Authorization Entered On: 10/30/2020 10:45 EST Performed On: 10/30/2020 10:45 EST by Ca Amaya Rn-Utilization Review Primary Insurance Authorization Authorization and Policy Numbers : Insurance 1 Health Plan: [employer] CHOICE PPO Policy Number: [id number] Authorization Number: Insurance Primary Name : [employer]ana Choice [id number] Auth/Referral Contact Name-Primary : Alfredo Casas Authorization [...] or availity as of yet (DERICK SHIPMAN, Juvenile Correctional Officer 10/28/2020 12:39) Ca Amaya, Rn-Utilization Review - 10/30/2020 10:45 EST Electronically signed by [facility] Conversion Magnetic Resonance Technologist Cerner at 02/08/2023 12:31 PM CDT documented in this encounter Plan of Treatment Not on file documented as of this encounter Visit Diagnoses Not on filedocumented in this encounter
--- OUTSIDE RECORDS SUMMARY | 2025-06-18 09:39 | XMS_ITS | Encounter Summary ---
Author Organization [employer] ([place], [place], [place], [place]) Address [address] [place] [address] Care Team Providers Care Life Skills Coordinator Name Role Phone Unavailable Primary Care Provider Unavailabl e Encounter Details Date Type Department Care Team (Late st Contact Info) Description 11/04/2020 Transcribed Document [facility] Family Medicine [facility] [place] [address] ProviderFarhan MD [address] [place] [address] Social History Tobacco Use Types [...] - Farhan ProviderMD - 11/04/2020 6:06 PM BOX CAR BRACER Patient Education Materials Follows: Spinal Fusion, Adult, Care After This sheet gives you information about how to care for yourself after your procedure. Your doctor may also give you more specific instructions. If you have problems or questions, contact your doctor. Follow these instructions at home: Medicines ??? Take hbss-gab-vgoxnwy and prescription medicines only as told by [...] cannot use soap and water, use hand animal care taker. ? Change your bandage as told by [...] your pee (urine) pale yellow. ? Take wmyg-mig-ytontrs or prescription medicines. ? Eat foods that [...] 02/01/2012 Document Revised: 01/29/2020 Document Reviewed: 01/22/2018 [employer] Patient Education ? 2019 [employer] documented in this encounter Plan of Treatment Not on file documented as of this encounter Visit Diagnoses Not on filedocumented in this encounter
--- OUTSIDE RECORDS SUMMARY | 2025-06-18 09:39 | XMS_ITS | Encounter Summary ---
Author Organization [employer] [facility] ([place], [place], [place], [place]) Address [address] [place] [address] Care Team Providers Care Patch Finisher Name Role Phone Unavailable Primary Care Provider Unavailabl e Encounter Details Date Type Department Care Team (Late st Contact Info) Description 10/31/2020 Transcribed Document [facility] Family Medicine [facility] [place] [address] ProviderFarhan MD [address] [place] [address] Social History Tobacco Use [...] - Historical ProviderMD - 10/31/2020 2:36 PM MANUFACTURING PRODUCTION MANAGER Nursing Discharge Summary Entered On: 10/31/2020 14:37 [...] - 10/31/2020 14:36 EST Electronically signed by [facility], [facility] Conversion Oil Well Engineer Cerner at 02/08/2023 12:18 PM CDT documented in this encounter Plan of Treatment Not on file documented as of this encounter Visit Diagnoses Not on filedocumented in this encounter
--- OUTSIDE RECORDS SUMMARY | 2025-06-18 09:39 | XMS_ITS | Encounter Summary ---
Author Organization [employer] ([place], [place], [place], [place]) Address [address] [place] [address] Care Team Providers Care Elementary School Professional Name Role Phone Unavailable Primary Care Provider Unavailabl e Encounter Details Date Type Department Care Team (Late st Contact Info) Description 10/30/2020 Transcribed Document [facility] [address] [facility] [address] [place] [address] [place] [address] [place] [address] [address] [place] [address] Social History Tobacco Use Types [...] tomorrow and go home tomorrow. He requests Silver Gate instead of Percocet when he goes home. I put a Silver Gate prescription on his chart. I talked to his . They're both happy with the plan. documented in this encounter Plan of Treatment Not on file documented as of this encounter Visit Diagnoses Not on filedocumented in this encounter
--- OUTSIDE RECORDS SUMMARY | 2025-06-18 09:39 | XMS_ITS | Encounter Summary ---
Author Organization [facility] ([place], [place], [place], [place]) Address [address] [place] [address] Care Team Providers Care Osteopathic Medicine Teacher Name Role Phone Unavailable Primary Care Provider Unavailabl e Encounter Details Date Type Department Care Team (Late st Contact Info) Description 10/30/2020 Transcribed Document [facility] [place] Family Medicine [address] [place] [address] ProviderFarhan MD [address] [place] [address] Social History Tobacco Use Types [...] - Farhan ProviderMD - 10/30/2020 6:00 AM EMS MANAGER Pain Assessment Entered On: 10/30/2020 20:01 EST [...]
--- OUTSIDE RECORDS SUMMARY | 2025-06-18 09:39 | XMS_ITS | Referral Summary ---
Author Organization [employer] ([place], [place], [place], [place]) Address [address] [place] [address] Care Team Providers Care Elevator Adjuster Name Role Phone Unavailable Primary Care Provider [...] 0 10/30/2023 Family and Community Support Answer Adonya e Recorded Help with Day to Day Activities Not on file 10/30/2023 Feeling Lonely or Isolated Not on file 10/30 Educational Attainment Answer Date Keyon rded Speak language other than Kyrgyz at home Not on file 10/30/2023 Want [...]
--- OUTSIDE RECORDS SUMMARY | 2025-06-18 09:39 | XMS_ITS | Encounter Summary ---
Author Organization [facility] Address [address] [place] [address] Care Team Providers Care Cell Biology Scientist Name Role Phone Nadja Lara MD Primary Care Provider [phone] Ministerio Rosas MD Unavailable [phone] Khadijah Dolan APRN Primary Care Provider [phone] Encounter Details Date Type Department Care Team (Late st Contact Info) Description 03/05/2023 Orders Only External Location [address] [place] [address] Yared Salgado MD [address] [place] [address] Social History Tobacco Use Types Packs/Day Years [...] Info) Description 06/23/2025 8:40 AM EDT Appointment [facility] [address] [place] [address] 06/23/2025 10:00 AM EDT [facility] [address] [place] [address] Ministerio Rosas MD [address] [place] [address] documented as of this encounter Procedures Procedure [...] documented as of this encounter Care Teams Cell Biology Scientist Relationship Specialty Start Date End Date Nadja Lara MD [address] [place] [address] PCP - General 03/04/21 05/03/25 Khadijah Dolan APRN [address] [place] [address] PCP - General 05/04/25 Ministerio Rosas MD [address] [place] [address] Surgeon Urology 09/23/24 documented as of this encounter
--- OUTSIDE RECORDS SUMMARY | 2025-06-18 09:39 | XMS_ITS | Encounter Summary ---
Author Organization [facility] ([place], [place], [place], [place]) Address [address] [place] [address] Care Team Providers Care Commercial Real Estate Underwriter Name Role Phone Unavailable Primary Care Provider Unavailabl e Encounter Details Date Type Department Care Team (Late st Contact Info) Description 10/30/2020 Transcribed Document [facility] Radiology [address] [place] [address] Mary Beth Orr MD [address] [address] Social History Tobacco Use Types [...] a 60 yo male admitted to [facility] per Dr. Green for an L3-5 [...] 100 mg intravenous injection 1 Infusion, IntraVENous, [id number] Jardiance 25 mg oral tablet 25 mg [...]
--- OUTSIDE RECORDS SUMMARY | 2025-06-18 09:39 | XMS_ITS | Encounter Summary ---
Author Organization [facility] Address [address] [place] [address] Care Team Providers Care Coremaking Machine Setter Name Role Phone Nadja Lara MD Primary Care Provider [phone] Ministerio Rosas MD Unavailable [phone] Khadijah Dolan APRN Primary Care Provider [phone]- [phone] Encounter Details Date Type Department Care Team (Late st Contact Info) Description 05/02/2023 Lab Requisition [facility] [address] [place] [address] Zulay Garcia PA [address] [address] Social History Tobacco Use Types Packs/Day Years [...] Info) Description 06/23/2025 8:40 AM EDT Appointment [facility] [address] [place] [address] 06/23/2025 10:00 AM EDT [facility] [address] [place] [address] Ministerio Rosas MD [id number] [place] [address] documented as of this encounter Visit Diagnoses Not on filedocumented in this encounter Additional Health Concerns Infection Onset Date Last Indicated 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 documented as of this encounter Care Teams Coremaking Machine Setter Relationship Specialty Start Date End Date Nadja Lara MD [address] [place], [place] [id number] PCP - General 03/04/21 05/03/25 Khadijah Dolan APRN [address] [place] [address] PCP - General 05/04/25 Ministerio Rosas MD [id number] [place] [address] Surgeon Urology 09/23/24 documented as of this encounter
--- OUTSIDE RECORDS SUMMARY | 2025-06-18 09:40 | XMS_ITS ---
Author Organization [facility] Address [address] [place] [address] Care Team Providers Care Eddy Current Inspector Name Role Phone Ministerio Rosas MD Unavailable [phone] Khadijah Dolan APRN Primary Care Provider [phone] Active Problems Problem Noted Date Diagnosed Date [...]
--- OUTSIDE RECORDS SUMMARY | 2025-06-18 09:40 | XMS_ITS | Clinical Summary ---
Author Organization [facility] Address [address] [place] [address] Care Team Providers Care Binder Folder Operator Name Role Phone Ministerio Rosas MD Unavailable [phone] Khadijah Dolan APRN Primary Care Provider [phone] Allergies Active Allergy Reactions Criticality Noted Date [...] 3 Active ergocalciferol (Vitamin D-2) 1.25 MG (29388 UT) capsule Active famotidine (Pepcid) 20 MG [...] 10 DAYS. 4 Active Continuous Blood Gluc Internal Controls Manager (FreeStyle Noemi [address] [place]) device 4 Active Continuous Blood Gluc Sensor [...] Type Department Care Team Description 06/03/2025 Telephone [facility] Urology [address], [address] [place] [address] Ministerio Rosas MD Confirmed appt 06/02/2025 Orders Only [facility] Urology [address], [address] [place] [phone] Kenneth Simpson MD Urothelial carcinoma of bladder without invasion of muscle (Primary Dx) 05/19/2025 Telephone [facility] Urology [address], [address] [place] [address] Ministerio Rosas MD HCN Clinical Concern/Question; HCN Status Update Call #2 05/05/2025 12:13 PM EDT - 05/05/2025 11:59 PM EDT Hospital Encounter [facility] [address] [place] [phone] Urothelial carcinoma of bladder without invasion of [...] Info) Description 06/23/2025 8:40 AM EDT Appointment [facility] [address] [place] [address] 06/23/2025 10:00 AM EDT [facility] [address] [place] [address] Ministerio Rosas MD [address] [place] [address] Health Maintenance Due Date Last [...] 2007 Sigmoidoscopy 2007 [facility]-Colorectal Cancer Screening 2007 [id number] Vaccine (3 - Moderna risk series) 03/14/2021 [...] this topic Medical Devices Implanted Type Area Medical Sales Representative Device Identifier Shelf Expiration Date Model / [...] Urine Color Yellow 05/05/2025 2:55 PM EDT [facility] UROLOG[facility] POCT Urine Clarity Clear 05/05/2025 2:55 PM EDT [facility]OLOG[facility] POCT Urine Glucose Negative Negative mg/dL 05/05/2025 2:55 PM EDT [facility] UROLOG[facility] POCT Urine Bilirubin Negative Negative mg/dL 05/05/2025 2:55 PM EDT [facility]OLOG[facility] POCT Urine Ketones Negative Negative mg/dL 05/05/2025 2:55 PM EDT [facility] UROLOG[facility] POCT Urine Specific [place] 1.010 1.005 - 1.030 05/05/2025 2:55 PM EDT [facility] UROLOG[facility] POCT Urine Blood Trace(A) Negative 05/05/2025 2:55 PM EDT [facility] POCT pH, Urine 5.5 5.0 - 8.0 05/05/2025 2:55 PM EDT [facility] POCT Protein, Urine Negative Negative mg/dL 05/05/2025 2:55 PM EDT [facility] POCT Urobilinogen, Urine 0.2 0.2, 1.0 EU/dL 05/05/2025 2:55 PM EDT [facility] UROLOG[facility] POCT Nitrite, Urine Negative Negative 05/05/2025 2:55 PM EDT [facility] UROLOG[facility] POCT Urine Leukocyte Esterase Negative Negative 05/05/2025 2:55 PM EDT [facility] Urine 05/05/2025 2:53 PM EDT 05/05/2025 2:55 PM EDT us Ministerio Rosas MD LAB POINT OF CARE TE ST DOCKED DEVICE UNSOLICITED RESULTS Final Result [facility] [address] [place] * CT Urogram (05/05/2025 1:23 PM EDT) [...] following split bolus administration of IV contrast, [id number], 150 mL. Reformatted images in the coronal [...] and Body Wall: Surgical changes compatible with [id number] fusion, with severe degenerative changes at the [...] 85 mL/min/1. 73m*2 05/05/2025 12:31 PM EDT [facility] Global Commodity Manager ID Aundrea Chung 05/05/2025 12:31 PM EDT [place] [facility] Device ID [id number] 05/05/2025 12:31 PM EDT [facility] Comment 05/05/2025 12:31 PM EDT [facility] [...] TEST DOCKED DEVICE UNSOLICITED RESULTS Final Result [facility] [address] LAB [address] [place] [address] * CT Chest w IV Contrast (06/01/2023 [...] MD on 06/01/2023 11:33 AM [facility] PROCEDURES Final Res ult from Last 3 Months or Most Recently Relevant to Health Maintenance Additional Health Concerns Infection Onset Date Last Indicated MRSA 10/30/2023 05/09/2024 Insurance [facility] MEDICARE Advance Directives * Full Code (Latest Code Status on File) Date Activated Date Inactivated Comments 11/19/2023 11:03 AM 11/20/2023 2:40 AM Question Answer Comments Patient has decision-making capacity? Yes Care Teams Binder Folder Operator Relationship Specialty Start Date End Date Khadijah Dolan APRN [address] [place] [address] PCP - General 05/04/25 Ministerio Rosas MD [address] [facility] [address] [place] [phone] Surgeon Urology 09/23/24
[2025-06-18 10:39] LABS: Hematocrit 37.9 % (42.0-52.0); Hemoglobin 12.8 g/dL (14.1-18.0); Immature Granulocytes % 0.4 %; Mean Corpuscular HGB Conc 33.8 g/dL (31.8-35.4); Mean Corpuscular Hemoglobin 31.4 pg (27.0-31.2); Mean Corpuscular Volume 92.9 fl (80-94); Nucleated Red Blood Cells % 0 %; Platelet Count 194 K/mm3 (142-424); Red Blood Count 4.08 M/mm3 (4.60-6.20); Red Cell Distribution Width-SD 48.3 fL; White Blood Count 8.3 K/mm3 (4.8-10.8)
[2025-06-18 11:03] LABS: Albumin Level 4.0 g/dl (3.5-5.0); Chloride 107 mmol/L (98-107)
[2025-06-18 11:04] LABS: Potassium 4.3 mmoL/L (3.5-5.1); Sodium 140 mmol/L (136-145)
[2025-06-18 11:06] LABS: Alanine Aminotransferase 11 U/L (12-78); Anion Gap 11.3 mEq/L (5-15); Aspartate Amino Transferase 17 U/L (17-59); Bilirubin,Unconjugated 0.2 mg/dL (0.0-1.1); Blood Urea Nitrogen 15 mg/dl (9-20); Carbon Dioxide 26 mmol/L (22.0-30.0); Creatinine,Serum 1.00 mg/dl (0.66-1.25); Estimated Glomerular Filt Rate 75 ml/min (>60); GFR (African American) 91 ML/MIN (>60); Total Protein,Serum 6.9 g/dl (6.3-8.2)
[2025-06-18 11:07] LABS: Alkaline Phosphatase 96 U/L (38-126); Bilirubin,Direct 0.2 mg/dl (0.0-0.4); Bilirubin,Indirect 0.2 mg/dL (0.0-0.9); Bilirubin,Total 0.4 mg/dl (0.2-1.3); Calcium 9.3 mg/dl (8.4-10.2); Cholesterol 140 mg/dl (140-200); Glucose 93 mg/dl (74-100); HDL Cholesterol 30 mg/dl (40-60); Magnesium 1.3 mg/dl (1.6-2.3); Triglycerides 91 mg/dl (30-150)
[2025-06-18 11:21] LABS: Free T4 (Free Thyroxine) 1.97 ng/dl (0.78-2.19)
[2025-06-18 13:46] LABS: Thyroid Stimulating Hormone 0.96 uIU/mL (0.465-4.68)
== END 2025-06-18 23:59 | disposition home or self-care (01) ==
LOC: LAB 09:33
PROVIDERS: PCP Nurse Practitioner Family; Visit Provider Physician Assistant
DX: I25.10 Atherosclerotic heart disease of native coronary artery without angina pectoris (principal); I10 Essential (primary) hypertension
CPT/HCPCS: 36415; 80048; 80061; 80076; 83735; 84439; 84443; 85025

== ENCOUNTER 2025-08-04 07:48 | Day surgery (SDC) | payer MEDICARE, SELFPAY ==
[2025-08-04] VITALS (13 sets, daily range): BP systolic 128–155; BP diastolic 67–81; PULSE 47–58; RESP 15–19; TEMP 36.6; O2SAT 94–98; BMI 29.8
--- NOTE | 2025-08-04 07:08 | IR_ITS ---
APPROVED REPORT Patient Location: Outpatient PROCEDURES Left heart catheterization Left ventriculogram Selective coronary angiogram Drug-eluting stent deployment to the proximal mid and distal dominant right coronary INDICATION Abnormal Myoview, Angina pectoris, Coronary artery disease Informed consent was obtained prior to the procedure. COMPLICATIONS NONE Estimated Blood Loss: LESS THAN 10 ML TECHNIQUE One percent lidocaine used to anesthetize the right anterior aspect of the wrist. The right radial artery was accessed via the Seldinger technique. A 6 [place]i sheath was placed in the right radial artery. 2.5 mg of Verapamil, 800 mcg of nitroglycerin, 1mg Lidocaine and 5000 U Heparin were given through the arterial sheath. The JL3 catheter was also used to perform left heart catheterization, left ventriculogram and selective coronary angiogram. At the end the diagnostic angiogram therapeutic Was administered giving a therapeutic ACT and the guide catheter was placed in the right coronary followed by Choice PT for support wire placed distally. A 4 mm x 38 mm Pedro frontier stent was deployed at 18 lenore reducing the severe stenosis to 0%. Following this a 4 mm 30 mm Wells Tannery frontier stent was placed distal to the for stent is still overlapping and deployed at 18 lenore. An additional 3.5 x 38 mm Wells Tann[place] frontier stent was placed distal to the second stent is still overlapping and deployed at 18 lenore. The balloon was brought back and deployed at 24 lenore throughout the 4 mm stent to post dilate. GILBERT-3 flow was present before and after the procedure. At the end procedure the apparatus was removed the sheath was removed and hemostasis was achieved with a TR banding patient was transferred to the postoperative care in stable condition. ANGIOGRAPHIC RESULTS The left main artery Normal The left anterior descending artery Proximal 30% stenosis with mid vessel 30 to 40% stenosis The circumflex artery Proximal 10% stenosis with 30% stenosis in the first obtuse marginal artery The right coronary artery Has proximal concentric 70 to 80% stenosis with additional 40 and 50% proximal mid vessel stenosis with a distal 60 to 70% stenosis The CHRISTIE ventriculogram reveals Normal 60% The left ventricular end-diastolic pressure 15 mmHg IMPRESSION Coronary disease as described above with mild to moderate disease throughout the LAD and circumflex artery Severe disease throughout the right coronary with successful stenting of the proximal mid and distal vessel severe disease reduced to 0% with 3 contiguous drug-eluting stents PLAN 1. Dual antiplatelet therapy 2. Cardiac rehabilitation 3. LDL less than 55 achieved high intensity statin 4. Avoidance of tobacco products 5. Risk factor modification Electronically signed by : Prince Butts MD 08/06/2025 14:21:00
[2025-08-04 08:14] LABS: Hematocrit 38.0 % (42.0-52.0); Hemoglobin 12.8 g/dL (14.1-18.0); Immature Granulocytes % 0.4 %; Mean Corpuscular HGB Conc 33.7 g/dL (31.8-35.4); Mean Corpuscular Hemoglobin 31.4 pg (27.0-31.2); Mean Corpuscular Volume 93.1 fl (80-94); Nucleated Red Blood Cells % 0 %; Platelet Count 174 K/mm3 (142-424); Red Blood Count 4.08 M/mm3 (4.60-6.20); Red Cell Distribution Width-SD 47.4 fL; White Blood Count 9.8 K/mm3 (4.8-10.8)
[2025-08-04 08:20] LABS: Chloride 102 mmol/L (98-107); Potassium 4.2 mmoL/L (3.5-5.1); Sodium 139 mmol/L (136-145)
[2025-08-04 08:23] LABS: Anion Gap 12.2 mEq/L (5-15); Blood Urea Nitrogen 22 mg/dl (9-20); Calcium 8.8 mg/dl (8.4-10.2); Carbon Dioxide 29 mmol/L (22.0-30.0); Creatinine Clearance Estimated 98 mL/min (50-200); Creatinine,Serum 1.00 mg/dl (0.66-1.25); Estimated Glomerular Filt Rate 75 ml/min (>60); GFR (African American) 91 ML/MIN (>60); Glucose 106 mg/dl (74-100)
[2025-08-04] MEDS: NITROGLYCERIN 800MCG/8ML SYR (CATH LAB) 800 MCG IA (09:47)
[2025-08-04] MEDS: HEPARIN 1,000 UNITS/ML 10ML VIAL (CATH LAB) 5000 UNIT IV ×2 (09:47→10:10)
[2025-08-04] MEDS: LIDOCAINE 1% 10ML MDV 10 ML IJ (09:47)
[2025-08-04] MEDS: 0.9 % SODIUM CHLORIDE 500 ML 25 ML IV (09:47)
[2025-08-04] MEDS: VERAPAMIL 2.5MG/ML 2ML VIAL 2.5 MG IV (09:47)
[2025-08-04] MEDS: HEPARIN 1,000 UNITS/500ML NS (CATH LAB) 3000 UNIT IV (09:48)
[2025-08-04] MEDS: MIDAZOLAM HCL 1MG/ML 5ML VIAL 1 MG IV (10:05)
[2025-08-04] MEDS: PRASUGREL 10MG TAB 60 MG PO (10:29)
[2025-08-04] MEDS: IOPAMIDOL-370 (76%);100ML BOTTLE 90 ML IV (12:04)
[2025-08-04 12:37] LABS: CATHL Activated Clotting Time 259 SEC (74-125)
== END 2025-08-04 14:12 | disposition home or self-care (01) ==
PROVIDERS: PCP Nurse Practitioner Family; Visit Provider Internal Medicine
PROC: 4A023N7 Measurement of Cardiac Sampling and Pressure, Left Heart, Percutaneous Approach (ICD-10-PCS; CPT 93452; principal; 2025-08-04 07:15)
DX: I25.10 Atherosclerotic heart disease of native coronary artery without angina pectoris (principal); R93.1 Abnormal findings on diagnostic imaging of heart and coronary circulation; R00.1 Bradycardia, unspecified; R53.83 Other fatigue; I42.9 Cardiomyopathy, unspecified; I10 Essential (primary) hypertension; E11.51 Type 2 diabetes mellitus with diabetic peripheral angiopathy without gangrene; J44.9 Chronic obstructive pulmonary disease, unspecified; I73.9 Peripheral vascular disease, unspecified; K21.9 Gastro-esophageal reflux disease without esophagitis; E78.2 Mixed hyperlipidemia; G47.33 Obstructive sleep apnea (adult) (pediatric); F17.210 Nicotine dependence, cigarettes, uncomplicated; Z79.82 Long term (current) use of aspirin; Z79.84 Long term (current) use of oral hypoglycemic drugs; Z79.890 Hormone replacement therapy; Z79.02 Long term (current) use of antithrombotics/antiplatelets; Z79.4 Long term (current) use of insulin; Z79.51 Long term (current) use of inhaled steroids; Z79.899 Other long term (current) drug therapy; Z88.0 Allergy status to penicillin; Z88.8 Allergy status to other drugs, medicaments and biological substances; Z82.49 Family history of ischemic heart disease and other diseases of the circulatory system
CPT/HCPCS: 80048; 85025; 85347; 92928; 93458; 99152; 99153; C1725; C1760; C1769; C1874; C9600; J1200; J1644; J2003; J7040; Q9967

== ENCOUNTER 2025-08-07 15:16 | Outpatient (CLI) | payer MEDICARE, SELFPAY ==
--- OUTSIDE RECORDS SUMMARY | 2024-04-17 10:00 | XMS_ITS ---
Author Organization [facility] Address [address] [place] [address] Care Team Providers Care Portable Power Tool Repairer Name Role Phone Khadijah Hanna APRN, Mem Primary Care Provider Unavailable Roger Keen II Unavailable [place] -Wired Music Operator David DUKE Unavailable Unavailable Allergies Allergen (clinical [...] PANK[facility] [address] [place] [address] 04/17/2024 Roger Keen Other snf (current) drug therapy Z79.899 ; Unspecified osteoarthritis, unspecified site M19.90 ; Rheumatoid arthritis, unspecified M06.9 ; Spondylosis without myelopathy or radiculopathy, lumbar region M47.816 ; Radiculopathy, lumbar region M54.16 ; Sacroiliitis, not elsewhere classified M46.1 and Trochanteric bursitis, unspecified hip M70.60 Assessments Encounter Date Diagnosis (ICD Code) Assessment Notes Treatment Notes Treatment Clinical Notes Section Notes 04/17/2024 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 Refill [place] 7.5/325mg TID-QID 2. Continue Lyrica 225mg BID with PCP 3. S/p #1 FILEMON SIJI with elevated BG 4. Consider SLBB in the future, declines 5. Follow up 2 months 6. Continue to follow-up with Oncology 02/25/24 Noe presents for follow up. He has been diagnosed with rheumatoid arthritis and has been on many immunomodulator s, currently on an infusion every 4 weeks. In addition he had major back surgeries at the [facility] with Dr. Waylon Green, performed in [...] Denies any changes or health concerns. Taking Tijer[place] 7.5/325 mg 3-4 times per day with [...] he had major back surgeries at the [facility] with Dr. Waylon Green, performed in 2020 which was a lumbar fusion (L3-S1). He is going to try and pursue further surgery once his cancer stabilizes. Here today for office visit and medication refills. Patient with a history of bladder cancer that is following up with [facility] at . Denies any significant changes in intensity in pain. Denies any changes or health concerns. Taking Tijeras 7.5/325 mg 3-4 times per day with [...] he had major back surgeries at the [facility] with Dr. Waylon Green, performed in 2020 which was a lumbar fusion (L3-S1). He is going to try and pursue further surgery once his cancer stabilizes. Here today for office visit and medication refills. Patient with a history of bladder cancer that is following up with [facility] at . Denies any significant changes in intensity in pain. Denies any changes or health concerns. Taking Tijeras 7.5/325 mg 3-4 times per day with [...] he had major back surgeries at the [facility] with Dr. Waylon Green, performed in 2020 which was a lumbar fusion (L3-S1). He is going to try and pursue further surgery once his cancer stabilizes. Here today for office visit and medication refills. Patient with a history of bladder cancer that is following up with [facility] at . Denies any significant changes in intensity in pain. Denies any changes or health concerns. Taking Tijeras 7.5/325 mg 3-4 times per day with [...] he had major back surgeries at the [facility] with Dr. Waylon Green, performed in 2020 which was a lumbar fusion (L3-S1). He is going to try and pursue further surgery once his cancer stabilizes. Here today for office visit and medication refills. Patient with a history of bladder cancer that is following up with [facility] at . Denies any significant changes in intensity in pain. Denies any changes or health concerns. Taking Tijeras 7.5/325 mg 3-4 times per day with [...] he had major back surgeries at the [facility] with Dr. Waylon Green, performed in 2020 which was a lumbar fusion (L3-S1). He is going to try and pursue further surgery once his cancer stabilizes. Here today for office visit and medication refills. Patient with a history of bladder cancer that is following up with [facility] at . Denies any significant changes in intensity in pain. Denies any changes or health concerns. Taking Tijeras 7.5/325 mg 3-4 times per day with [...] he had major back surgeries at the [facility] with Dr. Waylon Green, performed in [...] Denies any changes or health concerns. 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 Refill T[place] 7.5/325mg TID-QID 2. Continue Lyrica 225mg BID [...] * Noe SILVESTREDOB:1960 ( 65 yo M)Acc No.[id number]:04/17/2024 FollowUP Patient: Noe DIAZ Provider: Amrik Keen II, M.D. :1960 A ge:64 Y S ex:Male Date:04/17/2024 Address:[address] [place], [place] [id number] Pcp:Khadijah dixon Mem Subjective: * Chief Complaints: * 1 . Low back pain. 2. Leg pain. * HPI: T ODAYS PAIN EVALUATION: 64 year old male presents with c/o MEDICATION FOLLOW UP: T he patient is currently prescribed [place] 7.5/325 mg TID and Lyrica 225 mg [...] peripelvic cysts of both the partially visualized [id number]/2020 XR LUMBAR:Grade 1 anterior listhesis L3-4 , [...] Physical Therapy program completed- Helpful, completed at [facility] physical therapy . P ERTINENT SURGICAL [...] has had major back surgeries at the [facility] with Dr. Waylon Green the last one [...] are going to request all images from [facility] to review. I am going to schedule him for a #1 bilateral SI joint injection. If he gets any significant relief even short duration, we may consider lateral branch blocks of the SI joint at S1-3 and RFA to minimize steroid requirements for long-term relief. I will start him on Tijer[place] 7.5 mg 3-4 times per day as [...] by Oncology. * Surgical History: a ppendectomy/ [facility] /unknown 09/1997, carpal tunnel release [facility]/unknown , right index finger/ [facility] unknown, right elbow/ [facility] /unknown unknown, kidney/ [facility] ([facility]) 2016, lumbar spine fusion/ [facility]/ Dr. Green 3 day stay 03/2014,, shoulder/ Bicep/ Dr. Wu/ [facility] 01/2016, Hydroseal/ [facility] 10/2022, Lumbar spine [facility] 3 days stay 2020. * Hospitalization/Major Diagno [...] * Vitals: * Examination: G eneral Examination: Nurse/Lawyers: Edson hollins(MA-Pankaj)Renae 02/25/2024 8:34:44 AM > . [...] * Assessment: 1. O ther terminal operations supervisor (current) drug therapy - Z79.899 (Primary) 2 [...] he had major back surgeries at the [facility] with Dr. Waylon Green, performed in 2020 which was a lumbar fusion (L3-S1). He is going to try and pursue further surgery once his cancer stabilizes. Here today for office visit and medication refills. Patient with a history of bladder cancer that is following up with [facility] at . Denies any significant changes in intensity in pain. Denies any changes or health concerns. Taking Tijer[place] 7.5/325 mg 3-4 times per day with relief. Denies side effects. Continues Lyrica with PCP. Declines injection therapy. Vero and UDS reviewed in room. Follow up in 2 months. Plan: * Treatment: * Procedures: [facility] FRY ENCOUNTER AND OVERSIGHT: Consult Performed By: Augusto raphael([facility]),Lauren 02/25/2024 8:55:25 AM > . c ollaborated treatment plan with Amrik Keen M.D., supervising physician who was present in office during consultation. * Follow Up: 2 Months * * Electronic signature of Solomon Keen II, M.D. on 08/07/2025 at 02:19 PM CDT Sign off status: Pending * Provider: Amrik Keen II, M.D. Date: 0 04/17/2024 Generated for Al santos/Yimi/Noemismitting on: 1 02:19 PM CDT History and Physical Notes * HPI (History [...] has had major back surgeries at the [facility] with Dr. Waylon Green the last one [...] are going to request all images from [facility] to review. I am going to schedule him for a #1 bilateral SI joint injection. If he gets any significant relief even short duration, we may consider lateral branch blocks of the SI joint at S1-3 and RFA to minimize steroid requirements for long-term relief. I will start him on Tijeras 7.5 mg 3-4 times per day as [...] Physical Therapy program completed- Helpful, completed at [facility] physical therapy PERTINENT SURGICAL EVALUATIONS/SPECIALIST CONSULTS [...] FOLLOW UP: The patient is currently prescribed [place] 7.5/325 mg TID and Lyrica 225 mg [...] pain., +COMPRESSION TEST FILEMON, +DISTRACTION TEST FILEMON Nurse/Lawyers: Renae Sawyer (MA-Lex) 02/25/2024 8:34:44 AM > [...] joints. Spasms absent Patricks test Positive bilaterally fabers on the RT
--- OUTSIDE RECORDS SUMMARY | 2024-04-18 04:30 | XMS_ITS ---
Author Organization [facility] Address [address] [place] [address] Care Team Providers Care Foley Artist Name Role Phone Khadijah Hanna APRN, Mem Primary Care Provider Roger Briceño II Unavailable [place] DO -Study Abroad Coordinator David DUKE Unavailable Unavailable REASON FOR VISIT 2 Month Follow Up Encounters Encounter Location Date Provider Diagnosis [facility] [address] [place] [address] 04/18/2024 Roger Keen Plan Of Treatment No Information Progress Notes * Noe CRAVENDOB:1960 ( 65 yo M)Acc No.[id number]:04/18/2024 FollowUP Patient: Noe DIAZ Provider: Amrik Keen II, M.D. :1960 A ge:64 Y S ex:Male Date:04/18/2024 Address:[address] [place], [place] [phone] Pcp:Khadijah dixon Mem Subjective: * Chief Complaints: * 1 . 2 Month Follow Up. * Medical History: Objective: * Vitals: Assessment: Plan: * Treatment: * * Electronic signature of Solomon Keen II, M.D. on 08/07/2025 at 02:18 PM CDT Sign off status: Pending * Provider: Amrik Keen II, M.D. Date: 0 04/18/2024 Generated for Al santos/Yimi/Shayne on: 1 02:18 PM CDT
--- OUTSIDE RECORDS SUMMARY | 2024-08-14 04:30 | XMS_ITS ---
Author Organization [facility] Address [address] [place] [address] Care Team Providers Care Float Tender Name Role Phone Khadijah Hanna APRN, Mem Primary Care Provider Unavailable Roger Keen II Unavailable [phone] Timpson -Volunteer Recruitment Coordinator David DUKE Unavailable Unavailable Allergies Allergen (clinical [...] Diagnosis [facility] [address] [place] [address] 08/14/2024 Roger Keen Other intermediate (current) drug therapy Z79.899 ; Unspecified osteoarthritis, unspecified site M19.90 ; Rheumatoid arthritis, unspecified M06.9 ; Spondylosis without myelopathy or radiculopathy, lumbar region M47.816 ; Radiculopathy, lumbar region M54.16 ; Sacroiliitis, not elsewhere classified M46.1 and Trochanteric bursitis, unspecified hip M70.60 Assessments Encounter Date Diagnosis (ICD Code) Assessment Notes Treatment Notes Treatment Clinical Notes Section Notes 08/14/2024 Other terminologist (current) drug therapy (ICD-10 - Z79.899) 06/19/24 1. Refill [facility] 7.5/325mg TID-QID 2. Continue Lyrica 225mg BID [...] he had major back surgeries at the [facility] with Dr. Waylon Green, performed in 2020 which was a lumbar fusion (L3-S1). He is going to try and pursue further surgery once his cancer stabilizes. Patient reports no changes in the character or intensity of his pain. He reports that he has not had a treatment for his bladder cancer approximately 4 weeks ago. Taking [facility] 7.5/325 mg 3-4 times per day with [...] he had major back surgeries at the [facility] with Dr. Waylon Green, performed in 2020 which was a lumbar fusion (L3-S1). He is going to try and pursue further surgery once his cancer stabilizes. Patient reports no changes in the character or intensity of his pain. He reports that he has not had a treatment for his bladder cancer approximately 4 weeks ago. Taking [facility] 7.5/325 mg 3-4 times per day with [...] he had major back surgeries at the [facility] with Dr. Waylon Green, performed in 2020 which was a lumbar fusion (L3-S1). He is going to try and pursue further surgery once his cancer stabilizes. Patient reports no changes in the character or intensity of his pain. He reports that he has not had a treatment for his bladder cancer approximately 4 weeks ago. Taking [facility] 7.5/325 mg 3-4 times per day with [...] he had major back surgeries at the [facility] with Dr. Waylon Green, performed in 2020 which was a lumbar fusion (L3-S1). He is going to try and pursue further surgery once his cancer stabilizes. Patient reports no changes in the character or intensity of his pain. He reports that he has not had a treatment for his bladder cancer approximately 4 weeks ago. Taking [facility] 7.5/325 mg 3-4 times per day with [...] he had major back surgeries at the [facility] with Dr. Waylon Green, performed in 2020 which was a lumbar fusion (L3-S1). He is going to try and pursue further surgery once his cancer stabilizes. Patient reports no changes in the character or intensity of his pain. He reports that he has not had a treatment for his bladder cancer approximately 4 weeks ago. Taking [facility] 7.5/325 mg 3-4 times per day with [...] he had major back surgeries at the [facility] with Dr. Waylon Green, performed in 2020 which was a lumbar fusion (L3-S1). He is going to try and pursue further surgery once his cancer stabilizes. Patient reports no changes in the character or intensity of his pain. He reports that he has not had a treatment for his bladder cancer approximately 4 weeks ago. Taking [facility] 7.5/325 mg 3-4 times per day with [...] he had major back surgeries at the [facility] with Dr. Waylon Green, performed in 2020 which was a lumbar fusion (L3-S1). He is going to try and pursue further surgery once his cancer stabilizes. Patient reports no changes in the character or intensity of his pain. He reports that he has not had a treatment for his bladder cancer approximately 4 weeks ago. Taking [facility] 7.5/325 mg 3-4 times per day with [...] IF CLOSED) Treatment Notes Assessment Notes Other terminologist (current) drug therapy 06/19/24 1. Refill [facility] 7.5/325mg TID-QID 2. Continue Lyrica 225mg BID [...] * Noe SILVESTREDOB:1960 ( 65 yo M)Acc No.[id number]:08/14/2024 FollowUP Patient: Noe DIAZ Provider: Amrik Keen II, M.D. :1960 A ge:64 Y S ex:Male Date:08/14/2024 Address:[address] [place], [place] [id number] Pcp:Eugzoei dixon [facility] Subjective: * Chief Complaints: * 1 . Low back pain. 2. Leg pain. * HPI: T ODAYS PAIN EVALUATION: 64 year old male presents with c/o MEDICATION FOLLOW UP: T he patient is currently prescribed [facility] 7.5/325 mg TID and Lyrica 225 mg [...] peripelvic cysts of both the partially visualized [id number]/22/2020 XR LUMBAR:Grade 1 anterior listhesis L3-4 , [...] Physical Therapy program completed- Helpful, completed at [facility] . P ERTINENT SURGICAL EVALUATIONS/SPECIALIST [...] has had major back surgeries at the [facility] with Dr. Waylon Green the last [...] are going to request all images from [facility] to review. I am going to schedule him for a #1 bilateral SI joint injection. If he gets any significant relief even short duration, we may consider lateral branch blocks of the SI joint at S1-3 and RFA to minimize steroid requirements for long-term relief. I will start him on [facility] 7.5 mg 3-4 times per day as [...] by Oncology. * Surgical History: a ppendectomy/ [facility] /[facility] 09/1997, carpal tunnel release [facility] , right index finger/ [facility] unknown, right elbow/ [facility] /unknown unknown, kidney/ [facility] ([facility] 2016, lumbar spine fusion/ [facility]/ Dr. Green 3 day stay 03/2014,, shoulder/ Bicep/ Dr. Wu/ [facility] 01/2016, Hydroseal/ [facility] 10/2022, Lumbar spine [place] 3 days stay 2020. * Hospitalization/Major Diagno [...] * Vitals: * Examination: G eneral Examination: Nurse/Power Press Operator: Rosalinda waterman(Nahomi Wheeler 06/19/2024 8:14:10 AM [...] . Assessment: * Assessment: 1. O ther intermediate (current) drug therapy - Z79.899 (Primary) 2 [...] he had major back surgeries at the [facility] with Dr. Waylon Green, performed in 2020 which was a lumbar fusion (L3-S1). He is going to try and pursue further surgery once his cancer stabilizes. Patient reports no changes in the character or intensity of his pain. He reports that he has not had a treatment for his bladder cancer approximately 4 weeks ago. Taking [facility] 7.5/325 mg 3-4 times per day with relief. Denies side effects. Continues Lyrica with PCP. Declines injection therapy. Vreo and UDS reviewed in room. Follow up in 2 months. Plan: * Treatment: * Procedures: [facility] FRY ENCOUNTER AND OVERSIGHT: Consult Performed By: Augusto raphael(QUILL BUNCHER AND SORTER-PANKAJ),Lauren 06/19/2024 8:50:10 AM > . c ollaborated treatment plan with Amrik Keen M.D., supervising physician who was present in office during consultation. * Follow Up: 2 Months * * Electronic signature of Solomon Keen II, M.D. on 08/07/2025 at 02:20 PM CDT Sign off status: Pending * Provider: Amrik Keen II, M.D. Date: Generated for Al santos/Yimi/Phoenixitting on: 02:20 PM CDT History and Physical Notes * [...] has had major back surgeries at the [facility] with Dr. Waylon Green the last [...] are going to request all images from [facility] to review. I am going to schedule him for a #1 bilateral SI joint injection. If he gets any significant relief even short duration, we may consider lateral branch blocks of the SI joint at S1-3 and RFA to minimize steroid requirements for long-term relief. I will start him on [facility] 7.5 mg 3-4 times per day as [...] Physical Therapy program completed- Helpful, completed at [facility] PERTINENT SURGICAL EVALUATIONS/SPECIALIST CONSULTS Prior [...] FOLLOW UP: The patient is currently prescribed [facility] 7.5/325 mg TID and Lyrica 225 mg [...] pain., +COMPRESSION TEST FILEMON, +DISTRACTION TEST FILEMON Nurse/Power Press Operator: Dakota(CECY-Omero Pichardo 06/19/2024 8:14:10 AM > Lumbar [...]
--- OUTSIDE RECORDS SUMMARY | 2025-06-23 07:57 | XMS_ITS | Encounter Summary ---
Author Organization [facility] Address [address] [place] [address] Care Team Providers Care Invoice Classification Clerk Name Role Phone Ministerio Rosas MD Unavailable [phone] Khadijah Dolan APRN Primary Care Provider [phone] Reason for Referral * Imaging (Routine) - Closed Specialty Diagnoses / Procedures Referred By Loki tyler Referred To Contact Radiology Diagnoses Urothelial carcinoma of bladder without invasion of muscle Procedures CT Urogram Ministerio Rosas MD [address] [address] Phone: tel: fax: Referral ID Status Reason Start Date Expiration Date Visits Re quested Visits Authorized [id number] Closed 06/02/2025 12/02/2026 1 1 Reason for Visit * Imaging (Routine) - Closed Specialty Diagnoses / Procedures Referred By Loki tyler Referred To Contact Radiology Diagnoses Urothelial carcinoma of bladder without invasion of muscle Procedures CT Urogram Ministerio Rosas MD [address] [address] Phone: tel: fax: Referral ID Status Reason Start Date Expiration Date Visits Re quested Visits Authorized [id number] Closed 06/02/2025 12/02/2026 1 1 Encounter Details Date Type Department Care Team (Latest Contact Info) Description 06/23/2025 7:57 AM EDT - 06/23/2025 11:59 PM EDT Hospital Encounter [facility] CT [address] [place] [address] Urothelial carcinoma of bladder without [...] Questionnaire -2 Score 0 06/23/2025 10:02 AM NELSONT Matthias Leggett documented as of this encounter Medications at Time of Discharge aspirin 81 MG chewable tablet Chew 1 tablet (81 mg) 1 (one) time each day. atorvastatin (Lipitor) 10 MG tablet TAKE 1 TABLET BY MOUTH ONCE A DAY FOR CHOLESTEROL 06/08/2023 buprenorphine-na loxone (Suboxone) 8-[address] 1 tablet under the tongue 2 (two) times a day. Only takes it once a day Continuous Blood Gluc Planner (FreeStyle Noemi 3 [place]) device 02/01/2024 Continuous Blood Gluc Sensor (FreeStyle Noemi 3 Sensor) misc 02/01/2024 DULoxetine (Cymbalta) [address] capsule TAKE ONE (1) CAPSULE EVERY DAY BY ORAL ROUTE. 08/26/2024 Embecta Pen Needle Ultrafine 31G X 5 MM misc USE DIRECTED PER MD 05/13/2025 ergocalciferol (Vitamin D-2) 1.25 MG (84789 UT) capsule famotidine (Pepcid) 20 MG tablet [...] mouth 2 (two) times a day. 05/01/2023 mupirocin (Bactroban) 2 % ointment APPLY TO [...] misc USE DIRECTED PER MD OFFICE 02/05/2025 bisoprolol (Zebeta) 5 MG tablet Take 1 tablet (5 mg) by mouth 1 (one) time each day. 03/27/2023 Mounjaro 2.5 MG/0.5ML solution auto-injector solution pen-injector INJECT 2.5 MG UNDER SKIN ONCE WEEKLY tamsulosin (Flomax) 0.4 MG 24 hr capsule [...] Info) Description 12/22/2025 8:40 AM EST Appointment [facility] [address] [place] [address] 12/22/2025 10:30 AM EST Office Visit [facility] [address], [address] [place] [phone] Ministerio Rosas MD [address] [place] [address] documented as of this encounter Procedures Procedure [...] following split bolus administration of IV contrast, [id number], 150 mL. Reformatted images in the coronal [...] documented as of this encounter Care Teams Invoice Classification Clerk Relationship Specialty Start Date End Date Fryman, Eugonda F, PLAN CONSULTANT [address] [place] [address] PCP - General 05/04/25 Ministerio Rosas MD [address] [facility] [address] [place] [phone] Surgeon Urology 09/23/24 documented as of this encounter
--- OUTSIDE RECORDS SUMMARY | 2025-06-23 10:00 | XMS_ITS | Encounter Summary ---
Author Organization [facility] Address [address] [place] [address] Care Team Providers Care Branch Operations Specialist Name Role Phone Ministerio Rosas MD Unavailable [phone] Khadijah Dolan APRN Primary Care Provider [phone] Reason for Referral * Other Medical (Routine) - Pending Review Specialty Diagnoses / Procedures Referred By Loki tyler Referred To Contact Urology Diagnoses Urothelial carcinoma of bladder without invasion of muscle Procedures Cysto- Urology Ministerio Rosas MD [address] [address] Phone: tel: fax: Referral ID Status Reason Start Date Expiration Date V isits Requested Visits Authorized [id number] Pending Review 06/23/2025 12/23/2026 1 1 * Imaging (Routine) - Pending Review Specialty Diagnoses / Procedures Referred By Loki tyler Referred To Contact Radiology Diagnoses Urothelial carcinoma of bladder without invasion of muscle Procedures CT Urogram Ministerio Rosas MD [address] [address] Phone: tel: fax: Referral ID Status Reason Start Date Expiration Date V isits Requested Visits Authorized [id number] Pending Review 06/23/2025 12/23/2026 1 1 Reason for Visit * Reason Comments Cystoscope * Other Medical (Routine) - Closed Specialty Diagnoses / Procedures Referred By Loki tyler Referred To Contact Urology Diagnoses Urothelial carcinoma of bladder without invasion of muscle Procedures Cysto- Urology Ministerio Rosas MD [address] [address] Phone: tel: fax: Referral ID Status Reason Start Date Expiration Date Visits Re quested Visits Authorized [id number] Closed 06/03/2025 12/03/2026 1 1 Encounter Details Date Type Department Care Team (Late st Contact Info) Description 06/23/2025 10:00 AM EDT [facility] [address] [place] [address] Ministerio Rosas MD [address] [address] Urothelial carcinoma of bladder without [...] carcinoma of bladder without invasion of muscle [facility] Urology Clinic Note 06/23/25 CC: non [...] Info) Description 12/22/2025 8:40 AM EST Appointment [facility] CT [address] [place] [address] 12/22/2025 10:30 AM EST [facility] [address] [place] [address] Ministerio Rosas MD [address] [place] [address] Scheduled Orders Name Type Priority [...] 10:23 AM EDT) Case Report Cytology Case: [id number] Authorizing Provider: Ministerio Rosas MD Collected: 06/23/2025 1023 Ordering Location: [facility] Urology Received: 06/23/2025 1049 Pathologist: Sally Sapp MD Specimen: Urine (Voided), VOIDED URINE 06/24/2025 1:59 PM EDT [facility] Final Diagnosis A. VOIDED URINE - NEGATIVE FOR HIGH GRADE UROTHELIAL CARCINOMA 06/24/2025 1:59 PM EDT [facility] at 1359 EDT Clinical History Urothelial Cancer/Hematu jackie 06/24/2025 1:59 PM EDT [facility] Previous Cancer Yes 1:59 PM EDT [facility] Previous Cancer Primary Site Bladder Cancer 06/24/2025 1:59 PM EDT [facility] Gross Description A. VOIDED URINE 70 ml's yellow fluid processed as thin prep 06/24/2025 1:59 PM EDT [facility] Urine Voided urine specimen / Unknown Non-blood Collection / Unknown 06/23/2025 10:23 AM EDT 06/23/2025 10:49 AM EDT us Ministerio Rosas MD LAB CYTOLOGY ORDERABLES Final Result [facility] [address] [place] [address] * POCT URINALYSIS DIPSTICK (06/23/2025 9:55 AM EDT) POCT Urine Color Yellow 06/23/2025 9:57 AM EDT [facility] UROLOGY POCT Urine Clarity Clear 06/23/2025 9:57 AM EDT [facility] UROLOGY POCT Urine Glucose Negative Negative mg/dL 06/23/2025 9:57 AM EDT [facility] UROLOGY POCT Urine Bilirubin Negative Negative mg/dL 06/23/2025 9:57 AM EDT [facility] UROLOGY POCT Urine Ketones Negative Negative mg/dL 06/23/2025 9:57 AM EDT [facility] UROLOGY POCT Urine Specific [place] 1.010 1.005 - 1.030 06/23/2025 9:57 AM EDT [facility] UROLOGY POCT Urine Blood Negative Negative 06/23/2025 9:57 AM EDT [facility] POCT pH, Urine 6.0 5.0 - 8.0 06/23/2025 9:57 AM EDT [facility] UROLOGY POCT Protein, Urine Negative Negative mg/dL 06/23/2025 9:57 AM EDT [facility] UROLOGY POCT Urobilinogen, Urine 0.2 0.2, 1.0 EU/dL 06/23/2025 9:57 AM EDT [facility] UROLOGY POCT Nitrite, Urine Negative Negative 06/23/2025 9:57 AM EDT [facility] UROLOGY POCT Urine Leukocyte Esterase Negative Negative 06/23/2025 9:57 AM EDT [facility] UROLOGY Urine 06/23/2025 9:55 AM EDT 06/23/2025 9:57 AM EDT us Ministerio Rosas MD LAB POINT OF CARE TE ST DOCKED DEVICE UNSOLICITED RESULTS Final Result [facility] [address], [place] documented in this encounter Visit Diagnoses [...] documented as of this encounter Care Teams Branch Operations Specialist Relationship Specialty Start Date End Date Khadijah Dolan APRN [address] [place] [address] PCP - General 05/04/25 Ministerio Rosas MD [id number] [place] [address] Surgeon Urology 09/23/24 documented as of this encounter
--- OUTSIDE RECORDS SUMMARY | 2025-08-07 15:18 | XMS_ITS | Encounter Summary ---
Author Organization [facility] ([place], [place], [place], [place]) Address [address] [place] [address] Care Team Providers Care Back Hand Name Role Phone Unavailable Primary Care Provider Unavailabl e Encounter Details Date Type Department Care Team (Late st Contact Info) Description 10/31/2020 Transcribed Document [facility] [facility] [place] [address] ProviderFarhan MD [address] [place], [place] [id number] Social History Tobacco Use Types Packs/Day Years [...] - Historical ProviderMD - 10/31/2020 3:52 PM DIRECTOR OF SOCIAL SERVICES Final Discharge Planning Entered On: 10/31/2020 15:53 EST Performed On: 10/31/2020 15:52 EST by SHAWNEE MAYORGA RN-Rehab Tech Final Discharge Planning Discharge Arrangements : Patient Post-Acute Information Patient Name: FRANSISCO CRAVEN Gender: Male : [birth year] Age: 60 Years No Post-Acute Placement(s) Listed No Post-Acute Service(s) Listed No [place] Referral(s) Listed Follow Up Appointment Scheduled : Yes Is Patient High/Moderate Readmission Risk? : No Discharge To Care Management : Home/Residential/Alf or Self Care - SHAWNEE MAYORGA RN-Rehab Tech - 10/31/2020 15:52 EST Final Narrative Note Final Narrative Note : To d/c home with . Per PLOF independent. Ordered walker and BSC from [facility] and to deliver to room prior to d/c. denies need for HH or other needs. SHAWNEE MAYORGA, RN-Rehab Tech - 10/31/2020 15:52 EST Electronically signed by Kailey [facility] Conversion [employer] Mach[employer] Coordinator Cerner at 02/08/2023 12:21 PM CDT documented in this encounter Plan of Treatment Not on file documented as of this encounter Visit Diagnoses Not on filedocumented in this encounter
--- OUTSIDE RECORDS SUMMARY | 2025-08-07 15:18 | XMS_ITS | Clinical Summary ---
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, INH Z79.899 (ICD-10-CM ) 01/12 Active 01/12 Bobbi Eagle Other half-way (current) drug therapy Dysuria 51683887 (SNOMED CT) 12/19 Active 12/19 Lincoln Iqbal MD Dysuria Adverse drug reaction 314815651 (SNOMED CT) 12/19 Active 12/19 Lincoln Iqbal MD H/O: Disorder Nausea 279273888 (SNOMED CT) 12/19 Active 12/19 Lincoln Iqbal [...] involvement DM II with diabetic peripheral neuropathy 75317255 (SNOMED CT) Active Bobbi Eagle Type 2 [...] without damage to nail, initial encounter Obesity 980459708 (SNOMED CT) Inactive Bobbiarabella Eagle Obesity Diarrhea, antibiotic associated 526304512 (SNOMED CT) 11/20 Inactive 11/20 Bobbi Eagle Antibiotic-ass ociated diarrhea Diarrhea, antibiotic associated 960866488 (SNOMED CT) 11/20 Removed 11/20 Lincoln Iqbal MD Antibiotic-ass ociated diarrhea Obesity 447522292 (SNOMED CT) Removed Trish Napier RN Obesity [...] W Nicotine dependence, cigarettes, uncomplicated Tobacco abuse 06788698 (SNOMED CT) Inactive Lincoln Iqbal MD Tobacco [...] acute osteomyelitis, right hand Benign Essential Hypertension 6022745 (SNOMED CT) Active Bobbi Eagle Benign essential hypertension DM Type II E11.9 (ICD-10-CM ) Inactive Bobbi Eagle Type 2 diabetes mellitus without complications Dog bite, initial treatment encounter(s) W54.0xxA (ICD-10-CM ) Removed Bobbi Eagle Bitten by dog, initial encounter Medications Medication Instructions Start Date Stop Date Generic Name ND Provider RIFAMPIN 300 MG CAPS 2 daily RIFAMPIN 26324960692 Lincoln Iqbal MD ISONIAZID 300 MG TABS one daily ISONIAZID 17000024914 Lincoln Iqbal MD B-6 50 MG TABS one daily PYRIDOXINE HCL 22107230983 Lincoln Iqbal MD TRAMADOL HCL 50 MG TABS by mouth twice daily TRAMADOL HCL 92133173121 Devonte Holland CELEBREX 200 MG CAPS by mouth daily CELECOXIB 53176716780 Devonte Holland LYRICA 150 MG CAPS by mouth twice daily PREGABALIN 07798480440 Devonte Holland DIAZEPAM 5 MG TABS Take/use as needed. DIAZEPAM 48293711229 Devonte Holland MELOXICAM 15 MG TABS by mouth daily MELOXICAM 64621447504 Devonte Holland NORCO 10-325 MG ORAL TABLET HYDROCODONE-ACET AMINOPHEN 52146802150 Devonte Holland VICOPROFEN 7.5-200 MG ORAL TABLET HYDROCODONE-IBUP ROFEN 27366485729 Devonte Holland BACTRIM DS 800-160 MG TABS SULFAMETHOXAZOLE -TRIMETHOPRIM 10320546526 Devonte Holland MUPIROCIN 2 % OINT apply daily to finger MUPIROCIN 70012810585 Devonte Amalia CIPROFLOXACIN HCL 500 MG TABS 1 by mouth twice a day CIPROFLOXACIN HCL 04870306724 Devonte Holland MINOCYCLINE HCL 100 MG CAPS one pill by mouth twice daily MINOCYCLINE HCL 22762411990 Devonte Holland INVANZ 1 GM INTRAVENOUS SOLUTION RECONSTITUTED 1gm IV daily [facility] [phone](f) [phone] ERTAPENEM SODIUM 81409813341 Clementine Pablo MINOCYCLINE HCL 100 MG CAPS one pill by mouth twice daily MINOCYCLINE HCL 92941165726 Lincoln Iqbal MD CIPROFLOXACIN HCL 500 MG TABS 1 by mouth twice a day CIPROFLOXACIN HCL 28776444314 Lincoln Iqbal MD INVSALVADOR 1 GM INTRAVENOUS SOLUTION RECONSTITUTED 1gm IV daily [facility] [phone](f) [phone] ERTAPENEM SODIUM 10891430464 [facility] INVANZ 1 GM INTRAVENOUS SOLUTION RECONSTITUTED 1gm IV daily [facility] (f) [phone] ERTAPENEM SODIUM 37520760718 [facility] MINOCYCLINE HCL 100 MG CAPS 1 twice daily MINOCYCLINE HCL 18778909787 Shyanne Rangel RN CIPROFLOXACIN HCL 500 MG TABS 1 by mouth twice a day CIPROFLOXACIN HCL 74735479257 Shyanne Rangel RN CIPROFLOXACIN HCL 500 MG TABS 1 by mouth twice a day CIPROFLOXACIN HCL 93979305244 Lincoln Iqbal MD MINOCYCLINE HCL 100 MG CAPS 1 twice daily MINOCYCLINE HCL 44333108043 Lincoln Iqbal MD MUPIROCIN 2 % OINT apply daily to finger MUPIROCIN 78619902699 Lincoln Iqbal MD VITAMIN D2 50 MCG (1999 UT) TABS 1.25mg daily ERGOCALCIFEROL 06040748867 Parisa Marcial ALLEN LOW DOSE 81 MG TBEC by mouth daily ASPIRIN 80023678443 Parisa Marcial DIAZEPAM 5 MG TABS Take/use as needed. DIAZEPAM 47256535635 Parisa Marcial DICLOFENAC SODIUM 75 MG TBEC DICLOFENAC SODIUM 86341399997 Parisa Marcial LISINOPRIL 40 MG TABS by mouth daily LISINOPRIL 11440435915 Parisa Marcial LYRICA CAPS PREGABALIN CAPS 25832001721 Parisa Marcial METFORMIN HCL 500 MG TABS by mouth twice daily METFORMIN HCL 89689427136 Parisa Marcial MELOXICAM 15 MG TABS by mouth daily MELOXICAM 09837523684 Parisa Marcial VOLTAREN 1 % GEL DICLOFENAC SODIUM 46639492834 Parisa Marcial VOLTAREN 1 % GEL DICLOFENAC SODIUM 33522639119 Janet Madden VICOPROFEN 7.5-200 MG ORAL TABLET HYDROCODONE-IBUP ROFEN 36096731301 Janet Solanox NORCO 10-325 MG ORAL TABLET HYDROCODONE-ACET AMINOPHEN 82704445418 Janet Solanox METFORMIN HCL 500 MG TABS METFORMIN HCL 81866956122 Janet Griffindox MELOXICAM TABS MELOXICAM TABS 71409614364 Janet Madden LYRICA CAPS PREGABALIN CAPS 66533338769 Janet Madden LISINOPRIL 40 MG TABS LISINOPRIL 56605121255 Janet Madden LEVOTHYROXINE SODIUM TABS LEVOTHYROXINE SODIUM TABS 64090151702 Janet Madden EFFEXOR XR 75 MG [id number] VENLAFAXINE HCL 68476802505 Janet Madden DICLOFENAC SODIUM 75 MG TBEC DICLOFENAC SODIUM 06935785319 Janet Madden DIAZEPAM 5 MG TABS DIAZEPAM 63592033973 Janet Madden BACTRIM DS 800-160 MG TABS SULFAMETHOXAZOLE -TRIMETHOPRIM 70579094721 Janet Madden Medications Administered No information available. 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 Dietary management education, guidance, and counseling [...] antibiotics 20 10/12/27 CPT-oral Discontinue oral antibiotics CPT-13329 CMP [id number] CBC with Differential 2018 CPT-89700 Urine Culture & Sensitivity CPT-36778 Urinalysis with microscopic exam CPT-patrice New Oral [...] New IV antibiotic CPT-patrice New Oral Antibiotic CPT-77529 PICC Line Insertion CPT-26725 PICC Line Insertion CPT-wpc Weekly PICC Line Care CPT- stat weekly Stat Weekly Labs [id number] CBC with Differential 2015 CPT-40634 CMP CPT-88475 C- reactive protein CPT-87652 Sedimentation Rate (ESR) 201 03/31/24 76666 Hepatitis C Atb: (ICD 10 Code: Z11.59) [...]
--- OUTSIDE RECORDS SUMMARY | 2025-08-07 15:19 | XMS_ITS | Encounter Summary ---
Author Organization [employer] ([place], [place], [place], [place]) Address [address] [place] [address] Care Team Providers Care Bus Starter Name Role Phone Unavailable Primary Care Provider Unavailabl e Encounter Details Date Type Department Care Team (Late st Contact Info) Description 11/04/2020 Transcribed Document [facility] [place] [facility] [place] [address] ProviderFarhan MD [address], [place] [...] - Farhan ProviderMD - 11/04/2020 6:06 PM DRYING FRAME OPERATOR Patient Education Materials Follows: Spinal Fusion, Adult, Care After This sheet gives you information about how to care for yourself after your procedure. Your doctor may also give you more specific instructions. If you have problems or questions, contact your doctor. Follow these instructions at home: Medicines ??? Take gjia-ccd-rhxyzid and prescription medicines only as told by [...] cannot use soap and water, use hand child support investigator. ? Change your bandage as told by [...] your pee (urine) pale yellow. ? Take dttj-scb-rquvdbp or prescription medicines. ? Eat foods that [...] 02/01/2012 Document Revised: 01/29/2020 Document Reviewed: 01/22/2018 [employer] Patient Education ? 2019 [employer] documented in this encounter Plan of Treatment Not on file documented as of this encounter Visit Diagnoses Not on filedocumented in this encounter
--- OUTSIDE RECORDS SUMMARY | 2025-08-07 15:19 | XMS_ITS | Encounter Summary ---
Author Organization [employer] ([place], [place], [place], [place]) Address [address] [place] [address] Care Team Providers Care Stone Driller Name Role Phone Unavailable Primary Care Provider Unavailabl e Encounter Details Date Type Department Care Team (Late st Contact Info) Description 11/04/2020 Transcribed Document [facility] [place] [facility] [place] [address] ProviderFarhan MD [address] [place], [place] [id number] Social History Tobacco Use Types Packs/Day Years [...] - Farhan ProviderMD - 11/04/2020 6:06 PM BUILDING ATTENDANT Patient Resource Center Entered On: 11/04/2020 18:08 EST Performed On: 11/04/2020 18:06 EST by Armida Naidu, Hand Tube Winder Patient Resource Center Provider Status : EST Other Established Provider Name : MANJEET HURLEY Patient Phone Number : [phone] Patient Insurance Type : Medicare Source of [...] at ED : Other Primary Language : Jordanian Patient Resource Center Comment : Patient needs follow up appointment. Called office and patient already has two appointments scheduled with Addie Veliz (2 week staple removal and 4 week post op) Follow Up Needed : Armida Youssef, Hand Tube Winder - 11/04/2020 18:06 EST documented in this encounter Plan of Treatment Not on file documented as of this encounter Visit Diagnoses Not on filedocumented in this encounter
--- OUTSIDE RECORDS SUMMARY | 2025-08-07 15:19 | XMS_ITS | Encounter Summary ---
Author Organization [employer] ([place], [place], [place], [place]) Address [address] [place] [address] Care Team Providers Care Scheduling Specialist Name Role Phone Unavailable Primary Care Provider Unavailabl e Encounter Details Date Type Department Care Team (Late st Contact Info) Description 11/02/2020 Transcribed Document [facility] [place] [address] [place] [address] ProviderFarhan MD [address] [id number] Social History Tobacco Use Types Packs/Day Years [...] - Historical ProviderMD - 11/02/2020 6:38 AM TRAIN STARTER UM Authorization Entered On: 11/02/2020 6:38 EST Performed On: 11/02/2020 6:38 EST by Diana Garcia, Social Economist Primary Insurance Authorization Authorization and Policy Numbers : Insurance 1 Health Plan: [employer] CHO[employer] PPO Policy Number: [id number] Authorization Number: Insurance Primary Name : [employer] Choice [id number] Authorization Status-Primary : Notification only Auth/Referral Contact Name-Primary : Alfredo Casas Reference Number-Primary : [id number] Authorization Number-Primary : [id number] Number of Days Authorized-Primary : 5 Day(s) Authorized Service Begin Date-Primary : 10/29/2020 EST Authorized Service End Date-Primary : 11/03/2020 EST Authorization Comments-Primary : Authorized per email from Alfredo Muller RN. Historical Authorization Comments-Primary : Comment 1: inpt admission approved by [employer] choice per Availity. (TAQUERIA AGRAWAL Mkt Chairman And Ceo-Utilization Mgt 11/01/2020 15:33) Comment 2: per availity auth pended (Ca Amaya, Rn-Utilization Review 10/30/2020 10:50) Comment 3: call to [facility]/dr slater office to obtain preauth #. She states no auth # yet. She will call [employer] to check on it and call me back (ROLF LUDWIG, RN-Utilization Review 10/28/2020 13:52) Comment 4: Pt is david for INPT Lumbar Fusion Posterior 3 Level on Sunday10-29-20 [employer] Choice: No auth notes in STAR or availity as of yet (DERICK SHIPMAN, Concrete Mixing Truck Driver 10/28/2020 12:39) Diana Garcia, Social Economist - 11/02/2020 6:38 EST documented in this encounter Plan of Treatment Not on file documented as of this encounter Visit Diagnoses Not on filedocumented in this encounter
--- OUTSIDE RECORDS SUMMARY | 2025-08-07 15:19 | XMS_ITS | Referral Summary ---
Author Organization [employer] ([place], [place], [place], [place]) Address [address] [place] [address] Care Team Providers Care Billing Spec Name Role Phone Unavailable Primary Care Provider [...] Date Keyon rded Speak language other than Sami at home Not on file 10/30/2023 Want [...]
--- OUTSIDE RECORDS SUMMARY | 2025-08-07 15:19 | XMS_ITS | Encounter Summary ---
Author Organization [employer] ([place], [place], [place], [place]) Address [address] [place] [address] Care Team Providers Care Road Contractor Name Role Phone Unavailable Primary Care Provider Unavailbrianna e Encounter Details Date Type Department Care Team (Late st Contact Info) Description 10/31/2020 Transcribed Document [facility] [place] Family Medicine [address] [place] [address] ProviderFarhan MD [address] [place] [address] Social History Tobacco Use Types [...] - Historical ProviderMD - 10/31/2020 5:00 AM BIT TAPPER Chart Check - Review Order Profile Entered On: 10/31/2020 6:54 EST Performed On: 10/31/2020 5:00 EST by Rebeca Espino RN Chart Check Powerplans Initiated/Discontinued as Appropriate : Yes All Active Orders Reviewed : Yes Rebeca Espino RN - 10/31/2020 6:54 EST Electronically signed by Kailey [facility] Conversion Senior Sas Programmer Mario at 02/08/2023 12:43 PM CDT documented in this encounter Plan of Treatment Not on file documented as of this encounter Visit Diagnoses Not on filedocumented in this encounter
--- OUTSIDE RECORDS SUMMARY | 2025-08-07 15:19 | XMS_ITS | Encounter Summary ---
Author Organization Healthcare Address [address] [place] [address] Care Team Providers Care Gas Prover Name Role Phone Nadja Lara MD Primary Care Provider [phone] Ministerio Rosas MD Unavailable [phone] Khadijah Doaln APRN Primary Care Provider [phone] Encounter Details Date Type Department Care Team (Late st Contact Info) Description 03/05/2023 Orders Only External Location [address] [place] [address] Yared Salgado MD [address] [place] [address] Social History Tobacco Use Types Packs/Day Years [...] Info) Description 12/22/2025 8:40 AM EST Appointment [facility] [address] [place] [address] 12/22/2025 10:30 AM EST Office [facility] [address] [place] [address] Ministerio Rosas MD [address] [place] [address] documented as of this encounter Procedures Procedure [...] documented as of this encounter Care Teams Gas Prover Relationship Specialty Start Date End Date Nadja Lara MD [address] [place] [phone] PCP - General 03/04/21 05/03/25 Khadijah Dolan APRN [address] [place] [address] PCP - General 05/04/25 Ministerio Rosas MD [address] [facility] [address] [place] [address] Surgeon Urology 09/23/24 documented as of this encounter
--- OUTSIDE RECORDS SUMMARY | 2025-08-07 15:19 | XMS_ITS | Encounter Summary ---
Author Organization [employer] ([place], [place], [place], [place]) Address [address] [place] [address] Care Team Providers Care Service Learning Coordinator Name Role Phone Unavailable Primary Care Provider Unavailabl e Encounter Details Date Type Department Care Team (Late st Contact Info) Description 10/31/2020 Transcribed Document [facility] [place] [address] [place] [address] ProviderFarhan MD [address] [place] [id number] Social History Tobacco Use Types Packs/Day Years [...] - Historical ProviderMD - 10/31/2020 2:50 PM INSIGHTS MANAGER Initial Discharge Planning Entered On: 10/31/2020 14:51 EST Performed On: 10/31/2020 14:50 EST by SHAWNEE MAYORGA RN-Grave Cleaner Initial Assessment I Previously Documented Living Environment [...] Is Guardianship Needed : No SHAWNEE MAYORGA RN-Grave Cleaner - 10/31/2020 14:50 EST Initial Assessment II Sensory and Motor Deficits : None Current Home Treatments and Equipment : None SHAWNEE MAYORGA RN-Grave Cleaner - 10/31/2020 14:50 EST Discharge Needs I Anticipated Discharge Date : 10/31/2020 EST Anticipated Discharge To, CM : Home with family care Current Home Treatment/Equipment : Current Home Treatment/Equipment No qualifying data available. Post Acute/Home Treatments : None Documentation Status Complete : Yes SHAWNEE MAYORGA RN-Grave Cleaner - 10/31/2020 14:50 EST Discharge Needs II Professional Skilled Services : Professional Skilled Services No qualifying data available. Needs Assistance with Transportation : No Discharge Options Discussed with Patient : Discharge transportation, DME, Home Health SHAWNEE MAYORGA RN-Grave Cleaner - 10/31/2020 14:50 EST documented in this encounter Plan of Treatment Not on file documented as of this encounter Visit Diagnoses Not on filedocumented in this encounter
--- OUTSIDE RECORDS SUMMARY | 2025-08-07 15:19 | XMS_ITS | Patient Health Record ---
Author Organization [facility] Address [address] [place] [address] Care Team Providers Care Powerhouse Mechanic Apprentice Name Role Phone Khadijah Hanna APRN, Mem Primary Care Provider Unavailable Roger Keen II Unavailable [place] -Bow Tacker David DUKE Unavailable Unavailable Allergies Allergen (clinical [...] W/U Status Risk Notes Problem Rheumatoid arthritis (85713367) Rheumatoid arthritis, unspecified (M06.9) Active confirmed Problem Osteoarthritis (436424105) Unspecified osteoarthritis, unspecified site (M19.90) Active confirmed Problem Solitary sacroiliitis (456152179) Sacroiliitis, not elsewhere classified (M46.1) Active confirmed Problem Lumbosacral spondylosis without myelopathy (58232776) Spondylosis without myelopathy or radiculopathy, lumbar region (M47.816) Active confirmed Problem Lumbar radiculopathy (439637371) Radiculopathy, lumbar region (M54.16) Active confirmed Problem Enthesopathy of hip region (67574941) Trochanteric bursitis, unspecified hip (M70.60) Active confirmed Problem Long-term current use of drug therapy (752584432) Other tank terminal gauger (current) drug therapy (Z79.899) Active confirmed Assessments Encounter Date Diagnosis (ICD Code) Assessment Notes Treatment Notes Treatment Clinical Notes Section Notes 08/14/2024 06/19/24 Noe presents for follow up. He has been diagnosed with rheumatoid arthritis and has been on many immunomodulators, currently on an infusion every 4 weeks. In addition he had major back surgeries at the [facility] with Dr. Waylon Green, performed in 2020 which was a lumbar fusion (L3-S1). He is going to try and pursue further surgery once his cancer stabilizes. Patient reports no changes in the character or intensity of his pain. He reports that he has not had a treatment for his bladder cancer approximately 4 weeks ago. Taking [place] 7.5/325 mg 3-4 times per day with relief. Denies side effects. Continues Lyrica with PCP. Declines injection therapy. Abiodun and UDS reviewed in room. Follow up in 2 months. Plan Of Treatment No Information Insurance Providers Payer Name Payer Address Payer Phone Subscriber Number Group Number Insured Name Patient Relationship to Insured Coverage Start Date Coverage End Date [employer] Medicare HMO 47[address] [address] [address] [place] [address] [phone] [id number] Noe Silvestre Self - patient is the [...] b y Oncology Surgical History Surgery Date(Month/Year) Lumbar spine [place] 3 days stay 20 21 Hydroseal/ [facility] l 10/2022 shoulder/ Bicep/ Dr. Wu/ Call[facility] linrebekah 01/2016 lumbar spine fusion/ [facility]/ Dr. Green 3 day stay 03/2014, kidney/ [facility] (OP) 2016 right elbow/ [facility] /unknown unknown right index finger/ [facility] unk nown carpal tunnel release [facility] /unknown 1990s appendectomy/ [facility] /unknow n 09/1997 Hospitalization History Reason Date(Month/Year)
--- OUTSIDE RECORDS SUMMARY | 2025-08-07 15:19 | XMS_ITS | Encounter Summary ---
Author Organization [facility] Address [address] [place] [address] Care Team Providers Care Ammonia Technician Name Role Phone Ministerio Rosas MD Unavailable [phone] Khadijah Dolan APRN Primary Care Provider [phone] Reason for Referral * Imaging (Routine) - Closed Specialty Diagnoses / Procedures Referred By Contlarissa tyler Referred To Contact Radiology Diagnoses Urothelial carcinoma of bladder without invasion of muscle Procedures CT Urogram Ministerio Rosas MD [address] [place] [address] Phone: tel: fax: Referral ID Status Reason Start Date Expiration Date Visits Re quested Visits Authorized [id number] Closed 06/02/2025 12/02/2026 1 1 Encounter Details Date Type Department Care Team (Late st Contact Info) Description 06/02/2025 Orders Only [facility] Urology [address] [place] [address] Kenneth Simpson MD [address] [place] [address] Urothelial carcinoma of bladder without [...] Info) Description 12/22/2025 8:40 AM EST Appointment [facility] [address] [place] [address] 12/22/2025 10:30 AM EST Office Visit [place] [facility] [address] [place] [address] Ministerio Rosas MD [address] [place] [address] documented as of this encounter Results * CT Urogram (06/23/2025 [...] following split bolus administration of IV contrast, [id number], 150 mL. Reformatted images in the coronal [...] of bladder without invasion of muscle- Primary Urothelial carcinoma of bladder without invasion of muscle documented in this encounter Additional Health Concerns [...] documented as of this encounter Care Teams Ammonia Technician Relationship Specialty Start Date End Date Khadijah Dolan APRN [address] [place] [address] PCP - General 05/04/25 Ministerio Rosas MD [address] [facility] [address] [place] [address] Surgeon Urology 09/23/24 documented as of this encounter
--- OUTSIDE RECORDS SUMMARY | 2025-08-07 15:19 | XMS_ITS | Encounter Summary ---
Author Organization Healthcare Address [address] [place] [address] Care Team Providers Care Neurosurgical Physician Assistant Name Role Phone Nadja Lara MD Primary Care Provider [phone] Ministerio Rosas MD Unavailable [phone] Khadijah Dolan APRN Primary Care Provider [phone] Encounter Details Date Type Department Care Team (Late st Contact Info) Description 05/02/2023 Lab Requisition [facility] [address] [place] [address] Zulay Garcia PA [address] [address] Social History Tobacco Use Types Packs/Day Years [...] Info) Description 12/22/2025 8:40 AM EST Appointment [facility] 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
--- OUTSIDE RECORDS SUMMARY | 2025-08-07 15:19 | XMS_ITS | Encounter Summary ---
Author Organization [employer] ([place], [place], [place], [place]) Address [address] [place] [address] Care Team Providers Care Heel Seat Laster Name Role Phone Unavailable Primary Care Provider Unavailabl e Encounter Details Date Type Department Care Team (Late st Contact Info) Description 10/31/2020 Transcribed Document [facility] Radiology 1 [place] [address] Mary Beth Orr MD [address] [address] Social History Tobacco Use Types [...] is a 60 yo male admitted to [facility] per Dr. Green for an L3-5 [...] 100 mg intravenous injection 1 Infusion, IntraVENous, I2Ypmsg Jardiance 25 mg oral tablet 25 mg [...]
--- OUTSIDE RECORDS SUMMARY | 2025-08-07 15:19 | XMS_ITS | Encounter Summary ---
Author Organization Healthcare Address [address] [place] [address] Care Team Providers Care Enterprise Resource Planner Name Role Phone Nadja Lara MD Primary Care Provider [phone]- [phone] Ministerio Rosas MD Unavailable [phone] Khadijah Dolan APRN Primary Care Provider [phone]- [phone] Encounter Details Date Type Department Care Team (Late st Contact Info) Description 05/02/2023 Lab Requisition [facility] [address] [place] [address] Zulay Garcia PA [address] [address] Right testicular pain Social History Tobacco Use [...] Info) Description 12/22/2025 8:[address] [facility] [address] [place] [address] 12/22/2025 10:30 AM EST Office Visit [facility] [address], [address] [place] [address] Ministerio Rosas MD [address] [place] [address] documented as of this encounter Procedures Procedure Name Priority Date/Time Associated Diagnosis Comments SURGICAL PATHOLOGY CONSULT Routine 05/02/2023 2:18 PM EDT Right testicular pain documented in this encounter Results * Surgical Pathology Consult (05/02/2023 2:18 PM EDT) Case Report Sugical Pathology Consult Case: [id number] Authorizing Provider: Zulay Garcia PA Collected: 05/02/2023 1418 Ordering Location: [facility] Lab Received: 05/02/2023 1418 Pathologist: Connor Suarez MD Specimen: Testicle, 05/03/2023 5:33 PM EDT [facility] Final Diagnosis OUTSIDE CASE: COLLECTED ON 03/13/2023. A. TESTICLE AND EPIDIDYMIS, RIGHT, EXCISION: - HYDROCELE B. 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 Received along with a corresponding pathology report from [facility] are 6 slide(s) labeled outside case: collected on 03/13/2023. 05/03/2023 5:33 PM EDT [facility] Note: A resident was involved in the service. I attest I examined the relevant preparations for the specimens and confirmed the diagnosis or interpretation. 05/03/2023 5:33 PM EDT [facility] Tissue Testis structure / Unknown 05/02/2023 2:18 PM EDT 05/02/2023 2:18 PM EDT [facility] PATHOLOGY ORDERABLES Fi nal Result [facility] [address] [place] [address] documented in this encounter Visit Diagnoses Diagnosis Right testicular pain documented in this encounter Additional Health Concerns Infection Onset Date Last Indicated 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 documented as of this encounter Care Teams Enterprise Resource Planner Relationship Specialty Start Date End Date Nadja Lara MD [address] [place], [place] [id number] PCP - General 03/04/21 05/03/25 Khadijah Dolan APRN [address] [place] [address] PCP - General 05/04/25 Ministerio Rosas MD [address] [facility] [address] [place] [address] Surgeon Urology 09/23/24 documented as of this encounter
--- OUTSIDE RECORDS SUMMARY | 2025-08-07 15:19 | XMS_ITS | Clinical Summary ---
Author Organization [employer] ([place], [place], [place], [place]) Address [address] [place] [address] Care Team Providers Care Senior Procurement Manager Name Role Phone Unavailable Primary Care [...] Date Keyon rded Speak language other than Mohawk at home Not on file 10/30/2023 Want [...] 2) 2012 COVID-19 VACCINE (3 - season) 2025, 01/17/2021 Influenza Vaccine (#1) 2025 DTAP/TDAP/TD VACCINES (2 - Td or Tdap) 05/19/2026 Respiratory Syncytial Virus (RSV) Adult or (1 - 1-dose 75+ series) 2037
--- OUTSIDE RECORDS SUMMARY | 2025-08-07 15:19 | XMS_ITS | Encounter Summary ---
Author Organization [employer] ([place], [place], [place], [place]) Address [address] [place] [address] Care Team Providers Care Product Sales Engineer Name Role Phone Unavailable Primary Care Provider Unavailabl e Encounter Details Date Type Department Care Team (Late st Contact Info) Description 11/03/2020 Transcribed Document [facility] Family Medicine [facility] [place] [address] ProviderFarhan MD [address] [place] [address] Social History Tobacco Use Types [...] - Historical ProviderMD - 11/03/2020 10:02 AM MECHANICAL MAINTENANCE FOREMAN Patient: FRANSISCO CRAVEN Age: 60 Years Sex: Male : 1960 Admit Date 10/29/2020 12:20 Discharge Date 10/31/2020 15:52 Primary Care Provider MANJEET HURLEY, [facility] Discharge Diagnosis Lumbar stenosis 10/31/2020 M48.061 [...] 100 mg intravenous injection 1 Infusion, IntraVENous, R4Digut Jardiance 25 mg oral tablet 25 mg = 1 Tab, Oral, QAM levothyroxine 200 mcg, Oral, Daily lisinopril 40 mg, Oral, Daily loratadine 10 mg oral tablet 10 mg = 1 Tab, Oral, Daily Lyrica 225 mg oral capsule 225 mg = 1 Cap, Oral, BID metFORMIN 1,000 mg, Oral, BID [place] 10 mg-325 mg oral tablet 1 Tab, [...]
--- OUTSIDE RECORDS SUMMARY | 2025-08-07 15:19 | XMS_ITS | Encounter Summary ---
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
--- OUTSIDE RECORDS SUMMARY | 2025-08-07 15:19 | XMS_ITS | Encounter Summary ---
Author Organization [employer] ([place], [place], [place], [place]) Address [address] [place] [address] Care Team Providers Care V Belt Curer Name Role Phone Unavailable Primary Care Provider Unavailabl e Encounter Details Date Type Department Care Team (Late st Contact Info) Description 11/01/2020 Transcribed Document [facility] [place] [address] [place] [address] ProviderFarhan MD [address] [place] [address] Social History Tobacco Use Types [...] - Historical ProviderMD - 11/01/2020 3:33 PM GENERATOR TECHNICIAN UM Authorization Entered On: 11/01/2020 15:33 EST Performed On: 11/01/2020 15:33 EST by TAQUERIA AGRAWAL Mkt Investment Banking Manager-Utilization Mgt Primary Insurance Authorization Authorization and Policy Numbers : Insurance 1 Health Plan: Mila PPO Policy Number: [id number] Authorization Number: Insurance Primary Name : [employer] [id number] Authorization Status-Primary : Admit approved Auth/Referral Contact Name-Primary : Alfredo R Reference Number-Primary : [id number] Authorization Number-Primary : [id number] Number of Days Authorized-Primary : 5 Day(s) [...] or availity as of yet (DERICK SHIPMAN, Vice Chancellor 10/28/2020 12:39) TAQUERIA AGRAWAL Mkt Investment Banking Manager-Utilization Mgt - 11/01/2020 15:33 EST Electronically signed by Kailey [facility] Conversion Fluorescent Lighting Model Maker Cerner at 02/08/2023 12:13 PM CDT documented in this encounter Plan of Treatment Not on file documented as of this encounter Visit Diagnoses Not on filedocumented in this encounter
--- OUTSIDE RECORDS SUMMARY | 2025-08-07 15:19 | XMS_ITS | Encounter Summary ---
Author Organization [facility] Address [address] [place] [address] Care Team Providers Care Lens Engraver Name Role Phone Ministerio Rosas MD Unavailable [phone] Khadijah Dolan APRN Primary Care Provider [phone]- [phone] Encounter Details Date Type Department Care Team (Latest Contact Info) Description 06/18/2025 Travel Social History Tobacco Use Types Packs/Day [...] Info) Description 12/22/2025 8:40 AM EST Appointment [facility] [address] [place] [address] 12/22/2025 10:30 AM EST Office Visit [place] [facility] [address] [place] [address] Ministerio Rosas MD [address] [address] documented as of this encounter [...] documented as of this encounter Care Teams Lens Engraver Relationship Specialty Start Date End Date Khadijah Dolan APRN [address] [place] [address] PCP - General 05/04/25 Ministerio Rosas MD [address] [id number] Surgeon Urology 09/23/24 documented as of this encounter
--- OUTSIDE RECORDS SUMMARY | 2025-08-07 15:19 | XMS_ITS | Encounter Summary ---
Author Organization Healthcare Address [address] [place] [address] Care Team Providers Care Animal Cop Name Role Phone Nadja Lara MD Primary Care Provider [phone] Ministerio Rosas MD Unavailable [phone] Khadijah Dolan APRN Primary Care Provider [phone]- [phone] Encounter Details Date Type Department Care Team (Late st Contact Info) Description 05/02/2023 Lab Requisition [facility] [address] [place] [address] Right testicular pain Social History Tobacco Use [...] Info) Description 12/22/2025 8:40 AM EST Appointment [facility] [address] [place] [address] 12/22/2025 10:30 AM EST Office Visit [place] [facility] [address] [place] [address] Ministerio Rosas MD [address] [place] [address] documented as of this encounter Visit Diagnoses Diagnosis Right testicular pain documented in this encounter Additional Health Concerns Infection Onset Date Last Indicated 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 documented as of this encounter Care Teams Animal Cop Relationship Specialty Start Date End Date Nadja Lara MD [address] [id number] PCP - General 03/04/21 05/03/25 Khadijah Dolan APRN [address] [place] [address] PCP - General 05/04/25 Ministerio Rosas MD [address] [address] Surgeon Urology 09/23/24 documented as of this encounter
--- OUTSIDE RECORDS SUMMARY | 2025-08-07 15:19 | XMS_ITS | Encounter Summary ---
Author Organization [employer] ([place], [place], [place], [place]) Address [address] [place] [address] Care Team Providers Care Management Trainee Program Stores Name Role Phone Unavailable Primary Care Provider Unavailabl e Encounter Details Date Type Department Care Team (Late st Contact Info) Description 10/31/2020 Transcribed Document [facility] Family Medicine [address] [place] [address] ProviderFarhan MD [address] [place] [address] Social History Tobacco Use Types [...] - Farhan ProviderMD - 10/31/2020 2:52 PM SUPERVISOR BYPRODUCTS [facility] [place] [address] FRANSISCO CRAVEN :1960 Visit Time:10/29/2020 Your [...] 1) tramadol (Ultram)--this will be replaced by Pembroke (hydrocodone-acetaminophen) call MD for fever greater than 101 degrees for 24 hours; increased pain,redness or swelling and/or drainage after 5 days Follow-Up Appointments Follow Up with ADDIE VELIZ When Within 2 weeks Nirali hylton Where: [address] [place] [address] [address] [place] [address] [employer]ol[employer] (1) Medications What How Much When Instructions Next Dose acetaminophen-hydrocodone (Pembroke 10 mg-325 mg oral tablet) 1 Tablet(s) [...] these instructions at home: Medicines ??? Take qhna-fiz-ivhriaf and prescription medicines only as told by [...] cannot use soap and water, use hand director of trauma. ? Change your bandage as told by [...] your pee (urine) pale yellow. ? Take mijl-qnt-vswreiw or prescription medicines. ? Eat foods that [...] 02/01/2012 Document Revised: 01/29/2020 Document Reviewed: 01/22/2018 [employer] Patient Education ?? 2020 [employer]. acetaminophen and hydrocodone (a SEET a MIN oh fen and michael droe KOE done) Hycet, Lorcet, Pembroke, Verdrocet, Vicodin, Xodol, Zamicet What is the [...] may report side effects to FDA at 5-414-SBS-1088. What other drugs will affect acetaminophen and [...] affect acetaminophen and hydrocodone, including prescription and bars-yxc-guvjewr medicines, vitamins, and herbal products. Not all [...] to ensure that the information provided by [employer]. ('[employer]') is accurate, up-to-date, and complete, but no guarantee is made to that effect. Drug information contained herein may be time sensitive. [employer] information has been compiled for use by healthcare practitioners and consumers in the [place] and therefore [employer] does not warrant that uses outside of the [place] are appropriate, unless specifically indicated otherwise. [employer] drug information does not endorse drugs, diagnose patients or recommend therapy. [employer] drug information is an informational resource designed [...] with your doctor, nurse or pharmacist. Copyright 3973-5910 [employer]. Version: 16.01. Revision Date: 11/12/2019. Emergency Awareness [...] Assistance with quitting is available by contacting 0-493-XKNX-NOW. This is a free resource providing counseling, [...] range between ( 0.0 and 7.0 ) Harrison #: 1.07 K/uL -- Normal range between ( 0.16 and 1.00 ) Eos #: 0.03 x10(3)/uL -- Normal range between ( 0.00 and 0.80 ) Harrison %: 7.3 % -- Normal range between [...] ) Urine Bilirubin Dipstick: Negative Urine Specific [place]: *1.028 -- Normal range between ( 1.005 [...] was given the opportunity to ask questions. Patient/Mold Engraver Name: Patient/Mold Engraver Signature: Relationship to Patient: Clinician/Hospital Mold Engraver Signature: Date: documented in this encounter Plan of Treatment Not on file documented as of this encounter Visit Diagnoses Not on filedocumented in this encounter
--- OUTSIDE RECORDS SUMMARY | 2025-08-07 15:19 | XMS_ITS | Encounter Summary ---
Author Organization [employer] ([place], [place], [place], [place]) Address [address] [place] [address] Care Team Providers Care Gas Pumping Station Helper Name Role Phone Unavailable Primary Care Provider Unavailabl e Encounter Details Date Type Department Care Team (Late st Contact Info) Description 10/31/2020 Transcribed Document [facility] Neurology - [place] [facility] [address] [place] [address] Addie Veliz Jr., MD [address] [place] [address] [address] [place] [address] Social History Tobacco Use Types [...]
--- OUTSIDE RECORDS SUMMARY | 2025-08-07 15:20 | XMS_ITS | Encounter Summary ---
Author Organization [employer] ([place], [place], [place], [place]) Address [address] [place] [address] Care Team Providers Care Nicker And Breaker Name Role Phone Unavailable Primary Care Provider Unavailabl e Encounter Details Date Type Department Care Team (Late st Contact Info) Description 10/29/2020 Transcribed Document [facility] Radiology [address] [place] [address] Vicente Orr MD [address] [address] Social History Tobacco Use Types [...] is a 60 yo male admitted to [facility] per Dr. Green for [...] 100 mg intravenous injection 1 Infusion, IntraVENous, [id number] Jardiance 25 mg oral tablet 25 mg [...]
--- OUTSIDE RECORDS SUMMARY | 2025-08-07 15:20 | XMS_ITS | Clinical Summary ---
Author Organization [facility] Address [address] [place] [address] Care Team Providers Care Cash Register Balancer Name Role Phone Maycol Erickson PA-C Primary Care Provider [phone] [phone] Allergies Active Allergy Reactions Criticality Noted Date [...] 2012 ZOSTER VACCINE (1 of 2) 2012 INFLUENZA VACCINE 05/22/2025 HEMOGLOBIN A1C Discontinued 10/12/2014 Procedures Procedure Name Priority Date/Time Associated Diagnosis Comments HEMOGLOBIN A1C Routine 10/12/2014 10:50 AM EST from Last 3 Months or Most Recently Relevant to Health Maintenance Results * Hemoglobin A1c (10/12/2014 10:50 AM EST) Hemoglobin A1C 5.1 4.00 - 6.00 % [facility] Comment: DF by IF @ 10/12/2014 11:49 The [place] [employer] recommends maintenance of Hemoglobin A1C at 7.0% or lower. Goals for Hemoglobin A1C reduction may need to be modified if hypoglycemia is a problem. Mean Bld Glu Estim. 93 mg/dL [facility] Blood specimen (specimen) 10/12/2014 10:50 AM EST Narrative [facility] - 10/12/2014 11:49 AM EST Specimen Type: Blood [facility] Santo Klein Jr., MD LAB BLOOD ORDERABLE S Final Result [facility] [address] [place] [address], from Last 3 Months or Most Recently Relevant to Health Maintenance [place] [place] [address] MEDICARE ADVANTAGE Care Teams Cash Register Balancer Relationship Specialty Start Date End Date Maycol Ericksno [place] [address] (work) PCP - General Physician Scuba Instructor 08/15/16
--- OUTSIDE RECORDS SUMMARY | 2025-08-07 15:20 | XMS_ITS | Clinical Summary ---
Author Organization [facility] Address [address] [place] [address] Care Team Providers Care Health Claims Examiner Name Role Phone Ministerio Rosas MD Unavailable [phone] Khadijah Dolan APRN Primary Care Provider [phone] Allergies Active Allergy Reactions Criticality Noted Date [...] by mouth 1 (one) time each day. 03/27/20 23 Active aspirin 81 MG chewable tablet Chew 1 tablet (81 mg) 1 (one) time each day. Active levothyroxine (Synthroid, Levoxyl) 200 MCG tablet Take 1 tablet (200 mcg) by mouth 1 (one) time each day. Active metFORMIN XR (Glucophage-XR ) 500 MG 24 hr tablet Take 2 tablets (1,000 mg) by mouth 2 (two) times a day. 05/01/20 23 Active omeprazole (PriLOSEC) [address] capsule Take 1 capsule (40 mg) by mouth every night. 04/26/20 23 Active ergocalciferol (Vitamin D-2) 1.25 MG (45751 UT) capsule Active famotidine (Pepcid) 20 MG tablet Take 1 tablet (20 mg) by mouth 1 (one) time each day. Active atorvastatin (Lipitor) 10 MG tablet TAKE 1 TABLET BY MOUTH ONCE A DAY FOR CHOLESTEROL 06/08/20 23 Active fluticasone (Flonase) 50 MCG/ACT nasal spray Administer 2 sprays into each nostril 1 (one) time each day. 03/27/20 23 Active Continuous Blood Gluc Wood Stock Blank Handler (FreeStyle Noemi 3 [place]) device 02/01/20 24 Active Continuous Blood Gluc Sensor (FreeStyle Noemi 3 Sensor) misc 02/01/20 24 Active DULoxetine (Cymbalta) [address] capsule TAKE ONE (1) CAPSULE EVERY DAY BY ORAL ROUTE. 08/26/20 24 Active Lantus SoloStar 100 UNIT/ML injection pen INJECT FIVE (5) UNITS EVERY DAY BY SUBCUTANEOUS ROUTE AT BEDTIME.PEN EXPIRES IN 28 DAYS 07/28/20 24 Active buprenorphine- naloxone (Suboxone) 8-[address] 1 tablet under the tongue 2 (two) times a day. Only takes it once a day Active TRUEplus Lancets 33G misc USE DIRECTED PER MD OFFICE 02/06/20 25 Active mupirocin (Bactroban) 2 % ointment APPLY TO AFFECTED AREA A SMALL AMOUNT THREE (3) TIMES DAILY 05/25/20 25 Active nicotine (Nicoderm CQ) 21 MG/24HR patch APPLY ONE (1) PATCH EVERY DAY BY TRANSDERMAL ROUTE. Active nitroglycerin (Nitrostat) 0.4 MG SL tablet DISSOLVE ONE TABLET ON TONGUE NEEDED FOR CHEST PAIN. MAY REPEAT EVERY 5 MINS X 3 DOSES. NO RELIEF, CALL MD OR CALL 911 Active pregabalin (Lyrica) 150 MG capsule take one (1) capsule by mouth twice a day 07/29/20 24 Active pregabalin (Lyrica) 300 MG capsule take 1 capsule by mouth twice daily for 30 days 07/10/20 24 Active Mounjaro 2.5 MG/0.5ML solution auto-injector solution pen-injector INJECT 2.5 MG UNDER SKIN ONCE WEEKLY Active Embecta Pen Needle Ultrafine 31G X 5 MM misc USE DIRECTED PER 05/13/20 25 Active insulin pen needle 31G X 8 mm misc use as directed 02/11/20 25 Active Prodigy No Coding Blood Gluc test strip TEST BLOOD SUGAR THREE (3) TIMES DAILY 02/06/20 25 Active tamsulosin (Flomax) 0.4 MG 24 hr capsule TAKE ONE (1) CAPSULE BY MOUTH EVERY DAY WITH DINNER 30 capsule 2 07/29/20 25 Active tamsulosin (Flomax) 0.4 MG 24 hr capsule TAKE 1 CAPSULE BY MOUTH EVERY DAY WITH DINNER 30 capsule 11 08/27/20 24 025 Discontinued Active Problems Problem Noted Date Diagnosed Date Urothelial carcinoma of bladder without invasion of muscle 07/25/2023 Encounters Date Type Department Care Team Description 07/29/2025 Refill [facility] [address] [place] [phone] Zuleyka Escobedo MD 06/23/2025 10:00 AM EDT Office Visit [address] [phone] Ministerio Rosas MD Urothelial carcinoma of bladder without invasion of muscle (Primary Dx) 06/23/2025 7:57 AM EDT - 06/23/2025 11:59 PM EDT Hospital Encounter [facility] [place] [address], [address] [place] [phone] Urothelial carcinoma of bladder without invasion of muscle Discharge Disposition: Home or Self Care 06/23/2025 Travel 06/18/2025 Travel 06/03/[address] [address] Ministerio Rosas MD Confirmed appt 06/02/2025 Orders Only [address] [phone] Kenneth Simpson MD Urothelial carcinoma of bladder without invasion of muscle (Primary Dx) 05/19/2025 Telephone [facility] [phone] Ministerio Rosas MD HCN Clinical Concern/Question; HCN Status Update Call #2 from Last 3 Months Family History Medical [...] Pulse 62 06/23/2025 9:55 AM EDT Temperature 36.7 C (98.1 F) 05/05/2025 2:55 PM EDT Respiratory Rate 15 02/03/2025 8:04 AM EDT Oxygen Saturation 97% 05/05/2025 2:55 PM EDT Inhaled Oxygen Concentration - - Weight 91 kg (200 lb 9.9 oz) 05/05/2025 2:55 PM EDT Height 175.3 cm (5' 9 ) 06/23/2025 9:55 AM EDT Body Mass Index 29.63 05/05/2025 2:55 PM EDT Plan of Treatment Upcoming Encounters Date Type Department Care Team (Late st Contact Info) Description 12/22/2025 8:40 AM EST Appointment [place] [address] [facility] [address] [place] [address] 12/22/2025 10:30 AM EST Office Visit [facility] [address], [address] [place] [address] Ministerio Rosas MD [address] [place] [address] Health Maintenance Due Date Last [...] 2007 Sigmoidoscopy 2007 [facility]-Colorectal Cancer Screening 2007 [id number] Vaccine (3 - Moderna risk series) 03/14/2021 02/14/2021, 01/17/2021 [facility]-RSV Vaccine: 60+ Years or (1 - Risk 60-74 years 1-dose series) 2022 [facility]-Lung Cancer Screening 06/01/2024 06/01/2023 [facility]-Influenza Vaccine (#1) 06/22/202507/08, 08/01/2023, 09/30/2020, Additional history exists [facility]-DTaP,Tdap,and Td Vaccines (2 - Td or Tdap) 05/19/2026 05/19/2016 [facility]-Depression Screening 06/23/2026 06/23/2025, 04/21 [facility]-Obesity Intervention Completed 025, 02/03/2025, 06/24/2024, Additional history exists HPV Vaccines Aged Out [...] this topic Medical Devices Implanted Type Area Vp Platforms Device Identifier Shelf Expiration Date Model / Serial / Lot Screw Screw Right: Arm Hardware N/A: Back Procedures Procedure Name Priority Date/Time Associated Diagnosis Comments CYSTO- UROLOGY Routine 06/23/2025 10:28 AM EDT Urothelial carcinoma of bladder without invasion of muscle NON-GYNECOLOGIC CYTOLOGY Routine 06/23/2025 10:23 AM EDT Urothelial carcinoma of bladder without invasion of muscle POCT URINALYSIS DIPSTICK Routine 06/23/2025 9:[address] UROGRAM Routine 06/23/2025 8:30 AM EDT Urothelial carcinoma of bladder without invasion of muscle CT CHEST W IV CONTRAST Routine 06/01/2023 11:19 AM EDT Urothelial carcinoma of bladder without invasion of muscle (CMS/HCC) from Last 3 Months or Most Recently Relevant to Health Maintenance Results * CYSTO- UROLOGY (06/23/2025 10:28 AM [...] 10:23 AM EDT) Case Report Cytology Case: [id number] Authorizing Provider: Ministerio Rosas MD Collected: 06/23/2025 1023 Ordering Location: [facility] Received: 06/23/2025 1049 Pathologist: Sally Sapp MD Specimen: Urine (Voided), VOIDED URINE 06/24/2025 1:59 PM EDT [facility] Final Diagnosis A. VOIDED URINE - NEGATIVE FOR HIGH GRADE UROTHELIAL CARCINOMA 06/24/2025 1:59 PM EDT [facility] at 1359 EDT Clinical History Urothelial Cancer/Hematu jackie 06/24/2025 1:59 PM EDT [facility] Previous Cancer Yes 1:59 PM EDT [facility] Previous Cancer Primary Site Bladder Cancer 06/24/2025 1:59 PM EDT [facility] Gross Description A. VOIDED URINE 70 ml's yellow fluid processed as thin prep 06/24/2025 1:59 PM EDT [facility] Urine Voided urine specimen / Unknown Non-blood Collection / Unknown 06/23/2025 10:23 AM EDT 06/23/2025 10:49 AM EDT us Ministerio Rosas MD LAB CYTOLOGY ORDERABLES Final Result [facility] [address] [place] [address] * POCT URINALYSIS DIPSTICK (06/23/2025 9:55 AM EDT) POCT Urine Color Yellow 06/23/2025 9:[address] [facility] POCT Urine Clarity Clear 06/23/2025 9:[address] [facility] POCT Urine Glucose Negative Negative mg/dL 06/23/2025 9:[address] [facility] POCT Urine Bilirubin Negative Negative mg/dL 06/23/2025 9:[address] [facility] POCT Urine Ketones Negative Negative mg/dL 06/23/2025 9:[address] [facility] POCT Urine Specific [place] 1.010 1.005 - 1.030 06/23/2025 9:[address] [facility] POCT Urine Blood Negative Negative 06/23/2025 9:[address] [facility] POCT pH, Urine 6.0 5.0 - 8.0 06/23/2025 9:[address] [facility] POCT Protein, Urine Negative Negative mg/dL 06/23/2025 9:57 AM EDT [facility] Urobilinogen, Urine 0.2 0.2, 1.0 EU/dL 06/23/2025 9:[address] [facility] POCT Nitrite, Urine Negative Negative 06/23/2025 9:[address] [facility] POCT Urine Leukocyte Esterase Negative Negative 06/23/2025 9:[address] [facility] Urine 06/23/2025 9:55 AM EDT 06/23/2025 9:57 AM EDT us Ministerio Rosas MD LAB POINT OF CARE TE ST DOCKED DEVICE UNSOLICITED RESULTS Final Result Performing Organization Address City/State/[facility] de Phone Number [facility] [address], [place] * CT Urogram (06/23/2025 8:30 AM EDT) [...] following split bolus administration of IV contrast, [id number], 150 mL. Reformatted images in the coronal [...] IMG CT PROCEDURES Final Resul t * CT Chest w IV Contrast (06/01/2023 [...] 06/01/2023 11:33 AM EDT CLINICAL INDICATION: staging, [facility] TECHNIQUE: Multiple CT helical images were obtained [...] Gutierrez MD - 06/01/2023 CLINICAL INDICATION: staging, [facility] TECHNIQUE: Multiple CT helical images were obtained [...] Patient has decision-making capacity? Yes Care Teams Health Claims Examiner Relationship Specialty Start Date End Date Khadijah Dolan APRN [address] [place] [address] PCP - General 05/04/25 Ministerio Rosas MD [address] [place] [phone] Surgeon Urology 09/23/24
--- OUTSIDE RECORDS SUMMARY | 2025-08-07 15:20 | XMS_ITS | Encounter Summary ---
Author Organization Healthcare Address [address] [place] [address] Care Team Providers Care Spacer Type Bar And Segment Name Role Phone Ministerio Rosas MD Unavailable [phone] Khadijah Dolan APRN Primary Care Provider [phone] Encounter Details Date Type Department Care Team (Latest Contact Info) Description 06/23/2025 Travel Social History Tobacco Use Types Packs/Day [...] Matthias Leggett documented as of this encounter Plan of Treatment Upcoming Encounters Date Type Department Care Team (Late st Contact Info) Description 12/22/2025 8:40 AM EST Appointment [facility] [address] [place] [address] 12/22/2025 10:30 AM EST Office Visit [facility] [address], [address] [place] [address] Ministerio Rosas MD [address] [address] documented as of this encounter [...] documented as of this encounter Care Teams Spacer Type Bar And Segment Relationship Specialty Start Date End Date Khadijah Dolan APRN [address] [place] [address] PCP - General 05/04/25 Ministerio Rosas MD [address] [phone] Surgeon Urology 09/23/24 documented as of this encounter
--- OUTSIDE RECORDS SUMMARY | 2025-08-07 15:20 | XMS_ITS | Encounter Summary ---
Author Organization [employer] ([place], [place], [place], [place]) Address [address] [place] [address] Care Team Providers Care Volleyball Referee Name Role Phone Unavailable Primary Care Provider Unavailabl e Encounter Details Date Type Department Care Team (Late st Contact Info) Description 10/29/2020 Transcribed Document [facility] Family Medicine [facility] [place] [address] ProviderFarhan MD [address] [place] [address] Social History Tobacco Use [...] - Farhan ProviderMD - 10/29/2020 10:34 AM TUBE REPAIRER Pain Assessment Entered On: 10/30/2020 20:02 EST [...]
--- OUTSIDE RECORDS SUMMARY | 2025-08-07 15:20 | XMS_ITS | Encounter Summary ---
Author Organization [employer] ([place], [place], [place], [place]) Address [address] [place] [address] Care Team Providers Care Icing Mixer Name Role Phone Unavailable Primary Care Provider Unavailabl e Encounter Details Date Type Department Care Team (Late st Contact Info) Description 10/29/2020 Transcribed Document [facility] [place] [facility] [place] [address] ProviderFarhan MD [address] [place] [address] Social History Tobacco Use Types [...] - Historical ProviderMD - 10/29/2020 10:34 AM VOICE NETWORK ENGINEER Evaluation, Physical Therapy Entered On: 10/29/2020 15:22 [...] KATINA LIANG, PT - 10/29/2020 15:23 EST [facility] Goals Mobility/Bed Mobility LTG PT Grid Goal [...] KATINA LIANG, PT - 10/29/2020 15:23 EST [place] PT Charges PT Therap. Exercise 15 min : 1 PT Eval Low Complexity : 1 KATINA LIANG, PT - 10/29/2020 15:23 EST Electronically signed by [facility], [facility] Conversion Igniter Capper Vitorner at 02/08/2023 12:22 PM CDT documented in this encounter Plan of Treatment Not on file documented as of this encounter Visit Diagnoses Not on filedocumented in this encounter
--- OUTSIDE RECORDS SUMMARY | 2025-08-07 15:20 | XMS_ITS | Encounter Summary ---
Author Organization Healthcare Address [address] [place] [address] Care Team Providers Care Lasting Machine Operator Hand Method Name Role Phone Ministerio Rosas MD Unavailable [phone] Khadijah Dolan APRN Primary Care Provider [phone] Reason for Visit * Reason Comments Med Refill Encounter Details Date Type Department Care Team (Late st Contact Info) Description 07/29/2025 Refill [place] [facility] [address], [address] [place] [address] Zuleyka Escobedo MD [address] [place] [address] Social History Tobacco Use Types Packs/Day Years [...] Info) Description 12/22/2025 8:40 AM EST Appointment [facility] [address] [place] [address] 12/22/2025 10:30 AM EST Office Visit [facility] [address], [address] [place] [address] Ministerio Rosas MD [address] [address] documented as of this encounter [...] documented as of this encounter Care Teams Lasting Machine Operator Hand Method Relationship Specialty Start Date End Date Khadijah Dolan APRN [address] [place] [address] PCP - General 05/04/25 Ministerio Rosas MD [address] [facility] [place] [phone] Surgeon Urology 09/23/24 documented as of this encounter
--- OUTSIDE RECORDS SUMMARY | 2025-08-07 15:20 | XMS_ITS | Encounter Summary ---
Author Organization [employer] ([place], [place], [place], [place]) Address [address] [place] [address] Care Team Providers Care Food Preparation Supervisor Name Role Phone Unavailable Primary Care Provider Unavailabl e Encounter Details Date Type Department Care Team (Late st Contact Info) Description 10/29/2020 Transcribed Document [facility] [place] [facility] [place] [address] ProviderFarhan MD [address] [place] [address] Social History Tobacco Use Types [...] - Historical ProviderMD - 10/29/2020 3:35 PM TANK STORAGE SUPERVISOR Treatment Intervention, PT Entered On: 10/31/2020 9:54 [...] Chase PHYSICAL THERAPIST - 10/31/2020 9:49 EST [facility] Goals Mobility/Bed Mobility LTG PT Grid Goal [...]
--- OUTSIDE RECORDS SUMMARY | 2025-08-07 15:20 | XMS_ITS | Encounter Summary ---
Author Organization [employer] ([place], [place], [place], [place]) Address [address] [place] [address] Care Team Providers Care Roof Painter Name Role Phone Unavailable Primary Care Provider Unavailabl e Encounter Details Date Type Department Care Team (Late st Contact Info) Description 10/29/2020 Transcribed Document [facility] [place] [facility] [place] [address] ProviderFarhan MD [address] [place] [address] Social History Tobacco Use Types [...] - Historical ProviderMD - 10/29/2020 10:00 PM PATTERNMAKER HAND Pain Assessment Entered On: 10/30/2020 1:23 EST [...]
--- OUTSIDE RECORDS SUMMARY | 2025-08-07 15:20 | XMS_ITS | Encounter Summary ---
Author Organization [employer] ([place], [place], [place], [place]) Address [address] [place] [address] Care Team Providers Care Dual Rate Dealer Name Role Phone Unavailable Primary Care Provider Unavailabl e Encounter Details Date Type Department Care Team (Late st Contact Info) Description 10/29/2020 Transcribed Document [facility] [place] [facility] [place] [address] ProviderFarhan MD [address] [place] [address] Social History Tobacco Use Types [...] - Historical ProviderMD - 10/29/2020 7:[address] SQL PROGRAMMER Admission History, Adult Entered On: 10/29/2020 19:47 [...] Ambulatory Legal Guardian : Unaccompanied Support Person/Patient Rail Car Unloader : Yes Support Person/Pt Rep Name : Taylor Silvestre - Support Person/Pt Rep Contact Information : [phone] Want Family/Rep/Phys Notified of Admit : No Emergency Contact #1 : Taylorwilliam Silvestre Emergency Contact #1 ` Emergency Contact #1 Relationship : ` Emergency Contact #2 : ` Emergency Contact #2 Phone Number : ` Emergency Contact #2 Relationship : ` Primary Language : Bangladeshi Preferred Communication Mode : Verbal Communication Barrier : None Electrical Assistant Needed : No DARIUS VELIZ RN - [...] Scale Risk Level : 25-45 Medium Risk Rupert Fall Interventions : Adequate lighting, Assistive devices [...] Source : Estimated Height Entry Format : [place] Height, Feet : 5 ft(Converted to: 152 cm, 60 Inch) Height, Inches : 9 Inch(Converted to: 0 ft 9 Inch, 22.86 cm) Clinical Height : 175.26 cm Weight Source : Standing scale Weight Entry Format : [place] Clinical Dosing Weight : 106.36 kg Weight, Pounds : 234 lb Body Surface Area (BSA) : 2.21 m2 Body Mass Index : 34.6 kg/m2 (HI) Ulysses Body Weight : 70 kg DARIUS VELIZ [...] DARIUS VELIZ RN - 10/29/2020 19:45 EST [place] Suicide Severity Rating Scale (C-SSRS) CSSRS Past [...] 10/29/2020 19:45 EST Electronically signed by Ka[facility] Conversion Producer Cerner at 02/08/2023 12:12 PM CDT documented in this encounter Plan of Treatment Not on file documented as of this encounter Visit Diagnoses Not on filedocumented in this encounter
--- OUTSIDE RECORDS SUMMARY | 2025-08-07 15:20 | XMS_ITS ---
Author Organization [facility] Address [address] [place] [address] Care Team Providers Care Esthetician Name Role Phone Ministerio Rosas MD Unavailable [phone] Khadijah Dolan APRN Primary Care Provider [phone] Active Problems Problem Noted Date Diagnosed Date [...]
--- OUTSIDE RECORDS SUMMARY | 2025-08-07 15:20 | XMS_ITS | Encounter Summary ---
Author Organization [employer] ([place], [place], [place], [place]) Address [address] [place] [address] Care Team Providers Care Blender Conveyor Operator Name Role Phone Unavailable Primary Care Provider Unavailabl e Encounter Details Date Type Department Care Team (Late st Contact Info) Description 10/29/2020 Transcribed Document [facility] [place] [address] [place] [address] ProviderFarhan MD [address] [place] [address] Social History Tobacco Use Types [...] - Farhan ProviderMD - 10/29/2020 8:39 AM MANNEQUIN MOUNTER [facility] Main OR Preop Summary Primary Physician: ADDIE VELIZ MD-SNU Finalized Date/Time: 10/29/20 12:44:39 Pt. Name: FRANSISCO CRAVEN/Sex: 1960 Male Med Rec #: [id number] Physician: ADDIE VELIZ MD-TANVIR Financial #: [id number] Pt. Type: I Room/Bed: 647/1 Admit/Disch: 10/29/20 12:20:00 - Institution: [facility] PreOp Case Times Entry 1 In Preop 10/29/20 06:05:00 Ready for Holding n/a Room Patient Ready for 10/29/20 07:31:00 Surgery Patient Out of Preop 10/29/20 08:11:00 Patient Out of n/a Holding Room Last Modified By: PEDRO Briceño RN 10/29/20 12:44:37 [facility] PreOp Case Times Audit 10/29/20 12:44:37 Guide Setter: CHRISTY Modifier: WILSONDL <+> 1 Patient Out of Preop 10/29/20 07:31:08 Guide Setter: CHRSITY Modifier: WILSONDL <+> 1 Patient Ready for Surgery Finalized By: PEDRO Briceño, RN Document Signatures Signed By: PEDRO Briceño RN 10/29/20 12:44 Electronically signed by Kailey [facility] Conversion Allergy Physician Cerner at 02/08/2023 12:23 PM CDT documented in this encounter Plan of Treatment Not on file documented as of this encounter Visit Diagnoses Not on filedocumented in this encounter
--- OUTSIDE RECORDS SUMMARY | 2025-08-07 15:20 | XMS_ITS | Data Portability ---
Author Organization [facility] [place] Address [address] [place] [address] Assessment No assessment recorded. Plan of Treatment Reminders Order Date Submit Date Provider Last Modified By Organization Details Last Modified Time Details Appointments None recorded. Lab urinalysis , dipstick 2022 023 [facility], [address] [place] [address], [phone], 3 15:53:11 urinalysis , dipstick [address] Urology, [address] [place] [address], [address], 3 16:27:34 urinalysis , dipstick [address] Urology, [address] [place] [address], [address], 2 19:09:17 Referral None recorded. Procedures bladder scan (PROC) 2022 023 [facility], [address] [place] [address], [address], 3 15:53:11 Surgeries None recorded. Imaging None recorded. Medication Orders None recorded. Patient TargetsNo targets recorded. Patient InstructionsNo instructions recorded. Reason for Referral None Reported. Results Created Date Observation Date Name Description Value Unit Range Abnormal Flag Note LastModifiedBy Organization Detail LastModifiedTime 09/05/20 22 09/05/2022 urina lysis , dipst ick Leukocytes (reference range) negati ve Not Available [facility] [address] [place] [address], [address], 09/05/2022 11:12:11 09/05/20 22 09/05/2022 urina lysis , dipst ick Nitrite (reference range:) negati ve Not Available [facility] [address] [place] [address], [address], 09/05/2022 11:12:11 09/05/20 22 09/05/2022 urina lysis , dipst ick Urobilinogen (reference range) 0.2 Not Available [address], [address], 09/05/2022 11:12:11 09/05/20 22 09/05/2022 urina lysis , dipst ick Protein (reference range) negati ve Not Available [facility] [address] [place] [address], [address], 09/05/2022 11:12:11 09/05/20 22 09/05/2022 urina lysis , dipst ick pH (reference range 5-8.5) 6.0 Not Available [facility] [address] [place] [address], [address], 09/05/2022 11:12:11 09/05/20 22 09/05/2022 urina lysis , dipst ick Blood (reference range:) large Not Available [facility] [address] [place] [address], [address], 09/05/2022 11:12:11 09/05/20 22 09/05/2022 urina lysis , dipst ick Specific [place] (reference range) 1.010 Not Available [facility] [address] [place] [address], [address], 09/05/2022 11:12:11 09/05/20 22 09/05/2022 urina lysis , dipst ick Ketone (reference range) negati ve Not Available [facility] [address] [place] [address], [address], 09/05/2022 11:12:11 09/05/20 22 09/05/2022 urina lysis , dipst ick Bilirubin (reference range) negati ve Not Available [facility] [address] [place] [address], [address], 09/05/2022 11:12:11 09/05/20 22 09/05/2022 urina lysis , dipst ick Glucose (reference range) [address] [facility] [address] [place] [address], [address], 09/05/2022 11:12:11 10/24/19 23 10/24/2022 BASIC METAB OLIC PANEL sodium 139 mmol/ L 137-14 7 Not Available [facility] ([facility]) [address] [place] [address] [place], [address], 10/24/2022 15:15:37 10/24/19 23 10/24/2022 BASIC METAB OLIC PANEL potassium 4.1 mmol/ L 3.5-5. 1 Not Available [facility] (Pre[facility]Op [facility]) [address] [place] [address] [place], [address], 10/24/2022 15:15:37 10/24/19 23 10/24/2022 BASIC METAB OLIC PANEL chloride 102 mmol/ L 98-110 Not Available [facility] (Pre-Op Clinic) [address] [place] [address] [place], [address], 10/24/2022 15:15:37 10/24/19 23 10/24/2022 BASIC METAB OLIC PANEL carbon dioxide 20 mmol/ L 21-30 low Not Available [facility] (Pre[facility]Op [facility]) [address] [place] [address] [place], [address], 10/24/2022 15:15:37 10/24/19 23 10/24/2022 BASIC METAB OLIC PANEL anion gap 17 mmol/ L 6-14 high Not Available [facility] (Pre[facility]Op Clinic) [address] [facility] [place], [address], 10/24/2022 15:15:37 10/24/19 23 10/24/2022 BASIC METAB OLIC PANEL glucose 236 mg/dL 70-115 high Not Available [facility] ([facility]Op [facility]) [address] [place] [address] [place], [address], 10/24/2022 15:15:37 10/24/19 23 10/24/2022 BASIC METAB OLIC PANEL BUN 28 mg/dL 9-20 high Not Available [facility] ([facility]Op [facility]) [address] [place] [address] [place], [address], 10/24/2022 15:15:37 10/24/19 23 10/24/2022 BASIC METAB OLIC PANEL creatinine 1.1 mg/dL 0.5-1. 5 Not Available [facility] ([facility]Op [facility]) [address] [place] [address] [place], [address], 10/24/2022 15:15:37 10/24/19 23 10/24/2022 BASIC METAB OLIC PANEL BUN/creatini ne ratio 25 ratio 10-20 high Not Available [facility] ([facility]Op [facility]) [address] [place] [address] [place], [address], 10/24/2022 15:15:37 10/24/19 23 10/24/2022 BASIC METAB OLIC PANEL glom filtration rate 73 mL/mi n >60- Not Available [facility] (Pre-Op Clinic) [address] [place] [address] [place], [address], 10/24/2022 15:15:37 10/24/19 23 10/24/2022 BASIC METAB OLIC PANEL osmolality (calculated) 302 mosmo l/kg 275-30 1 high OSMOL ALITY IS A CALCU LATIO N UTILI ZING THE SERUM /PLAS MA SODIU M, GLUCO SE AND UREA NITRO GEN (BUN) LEVEL S. FOR THE MOST ACCUR ATE RESUL T A MEASU RED SERUM OSMOL ALITY IS SUGOCTAVIANO STED. Not Available [facility] (Pre[facility]Op [facility]) [address] [place] [address] [place], [address], 10/24/2022 15:15:37 10/24/1910/24/2022 BASIC METAB OLIC PANEL calcium 8.9 mg/dL 8.5-10 .8 Not Available [facility] (Pre[facility]Op [facility]) [address] [place] [address] [place], [address], 10/24/2022 15:15:37 10/24/1910/24/2022 BASIC METAB OLIC PANEL note Unles s other jeronimo noted testi ng perfo [facility]med at: [facility] [address] [place] [address] Mike dutton MD Not Available [facility] (Pre[facility]Op [facility]) [address] [place] [address] [place], [address], 10/24/2022 15:15:37 11/13/19 23 11/13/2022 urina lysis , dipst ick Leukocytes (reference range) negati ve Not Available [facility] [address] [place] [address], [address], 11/13/2022 14:31:14 11/13/1911/13/2022 urina lysis , dipst ick Nitrite (reference range:) negati ve Not Available [facility] [address] [place] [address], [address], 11/13/2022 14:31:14 11/13/1911/13/2022 urina lysis , dipst ick Urobilinogen (reference range) [address] [facility] [address] [place] [address], [address], 11/13/2022 14:31:14 11/13/19 23 11/13/2022 urina lysis , dipst ick Protein (reference range) negati ve Not Available [address], [address], 11/13/2022 14:31:14 11/13/1911/13/2022 urina lysis , dipst ick pH (reference range 5-8.5) 6.0 Not Available [address], [address], 11/13/2022 14:31:14 11/13/1911/13/2022 urina lysis , dipst ick Blood (reference range:) large Not Available [address], [address], 11/13/2022 14:31:14 11/13/19 23 11/13/2022 urina lysis , dipst ick Specific [place] (reference range) 1.010 Not Available [address], [address], 11/13/2022 14:31:14 11/13/19 23 11/13/2022 urina lysis , dipst ick Ketone (reference range) negati ve Not Available [address], [address], 11/13/2022 14:31:14 11/13/1911/13/2022 urina lysis , dipst ick Bilirubin (reference range) negati ve Not Available [address], [address], 11/13/2022 14:31:14 11/13/1911/13/2022 urina lysis , dipst ick Glucose (reference range) 1000 Not Available [address], [address], 11/13/2022 14:31:14 11/30/19 23 11/30/2022 urina lysis , dipst ick Leukocytes (reference range) negati ve Not Available [address], [address], 11/30/2022 09:55:20 11/30/19 23 11/30/2022 urina lysis , dipst ick Nitrite (reference range:) negati ve Not Available [address], [address], 11/30/2022 09:55:20 11/30/1911/30/2022 urina lysis , dipst ick Urobilinogen (reference range) 0.2 Not Available [address], [address], 11/30/2022 09:55:20 11/30/19 23 11/30/2022 urina lysis , dipst ick Protein (reference range) 30 Not Available [address], [address], 11/30/2022 09:55:20 11/30/1911/30/2022 urina lysis , dipst ick pH (reference range 5-8.5) 6.0 Not Available [address], [address], 11/30/2022 09:55:20 11/30/19 23 11/30/2022 urina lysis , dipst ick Blood (reference range:) large Not Available [address], [address], 11/30/2022 09:55:20 11/30/19 23 11/30/2022 urina lysis , dipst ick Specific [place] (reference range) 1.010 Not Available [address], [address], 11/30/2022 09:55:20 11/30/19 23 11/30/2022 urina lysis , dipst ick Ketone (reference range) negati ve Not Available [facility] [address] [place] [address], [address], 11/30/2022 09:55:20 11/30/19 23 11/30/2022 urina lysis , dipst ick Bilirubin (reference range) negati ve Not Available [address], [address], 11/30/2022 09:55:20 11/30/19 23 11/30/2022 urina lysis , dipst ick Glucose (reference range) 1000 Not Available [address], [address], 11/30/2022 09:55:20 11/30/19 23 11/30/2022 bladd er scan (PROC ) Calculated Residual Urine: 16ml Not Available [address], [address], 11/30/2022 09:55:23 10/28/19 23 10/28/2022 [place] hickey am No observ ation record ed. [email or web address] [facility] Medical Records [address] [place] [address], [address], 10/30/2022 14:12:08 Result Notes None recorded. Procedures Surgical History Date Name Laterality Status Provider Name and Address Organization Details Recorded Time 3 Procedure Note completed Iain Eckert Jr, MD [address] [facility], [address], [place], [address], [facility] & [place] 12/28/2022 17:17:59 7 Appendectomy completed Genet Duncan [facility] & [place] 09/05/2022 10:50:28 Imaging Results None recorded. Procedure Notes None recorded. Medical Equipment None Reported. Allergies Allergen ID Allergen Name Allergen Category Reaction Reaction Severity Criticality Documentation Date Start Date Code Code System Note Provider Name and Address Organization Details Recorded Time 05717 Product containin g penicilli n (product) medicatio n Not available Not available Not available 09/05/2022 76548 8001 SNOMED Genet Duncan [facility], [place] - [facility] & [place] 2 10:50:07 Medications Name Sig Start Date Stop Date Status Note LastModified by Organization Details LastModified Time fluconazole 100 mg tablet TAKE 1 TABLET BY MOUTH ONCE A DAY. 09/04 completed Not Available Not Available Not Available doxycycline hyclate 100 mg capsule TAKE (1) CAPSULE BY MOUTH TWICE DAILY. 09/04 completed Not Available Not Available Not Available atorvastati n 20 mg tablet TAKE 1 TABLET BY MOUTH ONCE A DAY FOR CHOLESTER OL active Not Available Not Available No t Available atorvastati n 10 mg tablet TAKE 1 TABLET BY MOUTH ONCE A DAY. active Not Available Not Available No t Available cilostazol 50 mg tablet TAKE (1) TABLET BY MOUTH TWICE A DAY. active Not Available Not Available No t Available clotrimazol e-betametha sone 1 %-0.05 % lotion APPLY TO AFFECTED AREA TWICE DAILY 09/04 completed Not Available Not Available Not Available glipizide 10 mg tablet TAKE 1 TABLET BY MOUTH ONCE A DAY. active Not Available Not Available No t Available prednisone 20 mg tablet TAKE (2) TABLETS BY MOUTH DAILY. 09/04 completed Not Available Not Available Not Available prednisone 5 mg tablet TAKE 1 TABLET BY MOUTH ONCE A DAY. active Not Available Not Available No t Available clobetasol 0.05 % topical cream APPLY TO AREA ON ARMS AND HANDS TWICE DAILY FOR 2 WEEKS, STOP FOR 2 WEEKS THEN REPEAT CYCLE active Not Available Not Available No t Available venlafaxine ER 150 mg capsule,ext ended release 24 hr TAKE (1) CAPSULE BY MOUTH ONCE A DAY. active Not Available Not Available No t Available acetaminoph en 300 mg-codeine 30 mg tablet TAKE (1) TABLET BY MOUTH EVERY SIX HOURS. active Not Available Not Available No t Available ciprofloxac in 500 mg tablet TAKE (1) TABLET BY MOUTH TWICE A DAY. active Not Available Not Available No t Available omeprazole 40 mg capsule,del ayed release TAKE (1) CAPSULE BY MOUTH ONCE A DAY. active Not Available Not Available No t Available tramadol 50 mg tablet TAKE (1) TABLET BY MOUTH FOUR TIMES DAILY NEEDED. 09/04 completed Not Available Not Available Not Available bisoprolol fumarate 5 mg tablet TAKE 1 TABLET BY MOUTH ONCE A DAY. active Not Available Not Available No t Available terbinafine HCl 250 mg tablet TAKE 1 TABLET BY MOUTH ONCE A DAY. 09/04 completed Not Available Not Available Not Available potassium chloride ER 20 mEq tablet,exte nded release(par t/cryst) TAKE ONE TABLET BY MOUTH ONCE DAILY. active Not Available Not Available No t Available famotidine 20 mg tablet TAKE 1 TABLET BY MOUTH ONCE A DAY. active Not Available Not Available No t Available triamcinolo ne acetonide 0.025 % topical cream APPLY TO AREA IN GROIN AND ON BUTTOCK TWICE DAILY FOR 2 WEEKS, STOP FOR 2 WEEKS THEN REPEAT CYCLE 09/04 completed Not Available Not Available Not Available tamsulosin 0.4 mg capsule TAKE 2 CAPSULES BY MOUTH AT BEDTIME. active Not Available Not Available No t Available hydrocodone 7.5 mg-acetamin ophen 325 mg tablet TAKE 1 TABLET BY MOUTH 3-4 TIMES A DAY active Not Available Not Available No t Available econazole nitrate 1 % topical cream APPLY TO GROIN AREA TWICE DAILY active Not Available Not Available No t Available cephalexin 500 mg capsule TAKE 1 BY MOUTH FOUR TIMES DAILY active Not Available Not Available No t Available bumetanide 1 mg tablet TAKE ONE TABLET BY MOUTH DAILY. active Not Available Not Available No t Available levothyroxi ne 200 mcg tablet TAKE 1 TABLET BY MOUTH ONCE A DAY. active Not Available Not Available No t Available ergocalcife rol (vitamin D2) 1,250 mcg (50,000 unit) capsule TAKE 1 CAPSULE BY MOUTH ONCE A WEEK. active Not Available Not Available No t Available clobetasol 0.05 % topical ointment APPLY TO HANDS AT BEDTIME. APPLY GLOVES OVER HANDS AFTER APPLICATI ON active Not Available Not Available No t Available testosteron e cypionate 200 mg/mL intramuscul ar oil INJECT 1ML EVERY 2 WEEKS 09/04 completed Not Available Not Available Not Available albuterol sulfate HFA 90 mcg/actuati on aerosol inhaler INHALE 2 PUFFS FOUR TIMES DAILY NEEDED FOR SHORTNESS OF BREATH OR WHEEZING active Not Available Not Available No t Available lisinopril 40 mg tablet TAKE 1 TABLET BY MOUTH ONCE A DAY. active Not Available Not Available No t Available cefdinir 300 mg capsule TAKE (1) CAPSULE BY MOUTH TWICE DAILY. active Not Available Not Available No t Available fluticasone propionate 50 mcg/actuati on nasal spray,suspe nsion USE 2 SPRAYS IN EACH NOSTRIL ONCE A DAY. active Not Available Not Available No t Available metformin ER 500 mg tablet,exte nded release 24 hr TAKE (2) TABLETS BY MOUTH TWICE DAILY active Not Available Not Available No t Available BD Luer-Suresh Syringe 3 mL 22 x 1 1/2 USE 1 SYRINGE EVERY 2 WEEKS. 09/04 completed Not Available Not Available Not Available loratadine 10 mg tablet TAKE 1 TABLET BY MOUTH ONCE A DAY. 09/04 completed Not Available Not Available Not Available glipizide 5 mg tablet TAKE 1 TABLET BY MOUTH ONCE A DAY. 09/04 completed Not Available Not Available Not Available diazepam 5 mg tablet TAKE (1) TABLET BY MOUTH TWICE A DAY. active Not Available Not Available No t Available eplerenone 25 mg tablet TAKE 1 TABLET BY MOUTH ONCE A DAY. active Not Available Not Available No t Available Lyrica 225 mg capsule TAKE (1) CAPSULE BY MOUTH TWICE DAILY. active Not Available Not Available No t Available Lyrica 300 mg capsule TAKE (1) CAPSULE BY MOUTH TWICE DAILY. active Not Available Not Available No t Available varenicline tartrate 1 mg tablet TAKE (1) TABLET BY MOUTH TWICE A DAY. 09/04 completed Not Available Not Available Not Available varenicline tartrate 0.5 mg tablet TAKE 1 TABLET BY MOUTH ONCE A DAY FOR 3 DAYS THEN 1 TABLET TWICE DAILY FOR 4 DAYS 09/04 completed Not Available Not Available Not Available Jardiance 25 mg tablet TAKE 1 TABLET BY MOUTH ONCE A DAY. active Not Available Not Available No t Available Stiolto Respimat 2.5 mcg-2.5 mcg/actuati on solution for inhalation INHALE 2 PUFFS BY MOUTH ONCE DAILY active Not Available Not Available No t Available clobetasol 0.05 % cream -gauze 4 X 4 -silicone adhesive topical kit active Not Available Not Available Not Available Vitals Date Recorded Body height Body mass index (BMI) Body weight Body temperature Provider Name and Address Organization Details Last Updated DateTime 11/13/2022 175.26 cm 38.4 kg/m2 254553.02 g 97.9 [degF] Genet HARTMAN [facility] & [place] 11/13/2022 14:07:16 Date Recorded Body height Body mass index (BMI) Body weight Body temperature Provider Name and Address Organization Details Last Updated DateTime 11/30/2022 175.26 cm 38.4 kg/m2 869281.02 g 97.9 [degF] [facility] [place] 11/30/2022 08:54:14 Date Recorded Body height Body mass index (BMI) Body weight Body temperature Provider Name and Address Organization Details Last Updated DateTime 12/28/2022 175.26 cm 38.4 kg/m2 314529.02 g 97.9 [degF] [facility]et [facility]ajo [facility] [place] 12/28/2022 15:48:20 Date Recorded Body height Body mass index (BMI) Body weight Body temperature Provider Name and Address Organization Details Last Updated DateTime 09/05/2022 175.26 cm 38.4 kg/m2 469286.02 g 97.9 [degF] Genet Gramajo [facility] & [place] 09/05/2022 10:49:59 Social History Question Answer Notes LastModified by Tunezy Details LastModified Time Tobacco Smoking Status Current Every Day Smoker Genet figueroa TOMASZ Gramajo [facility] & [place] 09/05/2022 10:50:23 Do You Have An Advance Directive? No Information not available 09/05/2022 Are You Blind Or Do You Have Difficulty Seeing? No [email or web address] Information not available 09/05/2022 What Was The Date Of Your Most Recent Tobacco Screening? 09/04/2022 [email or web address] Information not available 09/05/2022 How Much Tobacco Do You Smoke? 2 PPD [email or web address] Information not available 09/05/2022 How Many Years Have You Smoked Tobacco? 44 Years [email or web address] Information not available 09/05/2022 Sex: Unknown Functional Status Question Answer Note LastModified by Tunezy Details LastModified Time Do you use any illicit or recreational drugs? No [email or web address] Information not available 09/05/2022 What is your level of alcohol consumption? None [email or web address] Information not available 09/05/2022 Do you or have you ever used smokeless tobacco? [id number] [email or web address] Information n ot available 09/05/2022 What is your exercise level? None [email or web address] Information not available 09/05/2022 Mental Status Question Answer Note LastModified by Organization D etails LastModified Time Do you feel stressed (tense, restless, nervous, or anxious, or unable to sleep at night)? [id number] Information not available 09/05/2022 Family History Relationship Description Onset Age of this Age Resolved Age Notes LastModified by Organization Details LastModified Time Mother Disorder of endocrine system pt. added direct ly (09/04) [email or web address] Not available 09/04/2022 16:24:22 Medical History Condition Response Diabetes Y Vision or Eye Problems Y Arthritis Y Ear or Hearing Problems Y Back Problems Y Thyroid Problems Y Kidney or Bladder Problems Y COPD Y Reflux/GERD Y High Cholesterol Y Rheumatoid Arthritis Y Hypertension Y Obstructive Sleep Apnea Y Past Encounters Encounter ID Performer Location Encounter Start Date Encounter Closed Date Diagnosis/Indication Diagnosis SNOMED-CT Code Diagnosis ICD10 Code Diagnosis IMO Codes Diagnosis Note [id number] Iain Eckert Jr, MD 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 He states worsening discomfort and returned for re-evaluat ion today. Physical examinatio n is consistent a right-side d hydrocele that is moderate size. There is positive transillum ination of around the right testicle. We discussed treatment options and discuss the hydrocelec shoaib procedure and complicati ons and postoperat kosta course. Patient would like to proceed with surgical management will set this up at his earliest convenienc e. He is going to call back a desired date of surgery. [id number] Iain Eckert Jr, MD [facility] [address] [place] [address] [place] [phone] 11/30/2022 08:49:28 11/30/2022 09:44:35 Overactive urinary bladder [id number] N32.81 Patient with a daytime frequency and urgency and nocturia 2-4 times. His risk factors are aging, obesity and drinking significan t amount of caffeine per day. We discussed caffeine cessation and patient placed on a course of Gemtesa. Will see him back in 1 month follow-up. His bladder scan shows only 11 cc residual. Adult hydrocele [id number] 9105 N43.3 patient with history of right-side d hydrocele status post hydrocelec shoaib 1 month ago. The procedure was uncomplica taylor and patient had no swelling until about 10 days after the procedure when he noted the acute recurrence of some swelling in the right scrotum. Examinatio n consistent the fluid recurrence . We discussed possible causes of the recurrence including a reactive process versus a patent processes vaginalis. Patient does have a history of robotic UPJ obstructio n which to place several years ago. We discussed continued does scrotal support and scrotal elevation and heat. Will see him back in 1 month for recheck. Did discuss possible fluid aspiration if no improvemen t. [id number] Iain Eckert Jr, MD [facility] [place] [address] 11/13/2022 13:58:02 11/13/2022 14:26:43 Adult hydrocele [id number] 9105 N43.3 Patient status post hydrocele repair 2 weeks ago. He states he was doing fine and there is no evidence of any problems postop until 4 days ago when he noticed the acute onset of some right testicular swelling. Today's examinatio n does show fluid in the right testicle. We discussed possible causes including reactive epididymit is versus recurrence of a fluid due to a patent foramen processes. Will place him on a course of Omnicef and we discussed does scrotal support and elevation and heat. Microscopic hematuria 19 [id number] R31.29 patient with microscopi c hematuria on his previous visit and again today. We discussed further workup with CT and cystoscopy . We will discuss further at his follow-up In 2 weeks. Lower urin diya tract symptoms [id number] R39.9 patient with frequency and nocturia. We discussed further workup on his return with bladder scan. He will continue the tamsulosin for now. [id number] Iain Eckert Jr, MD [facility] [place] [id number] 12/28/2022 15:34:36 12/28/2022 16:46:50 Adult hydrocele [id number] 9105 N43.3 patient with history of right-side d hydrocele status post hydrocelec shoaib 2 month ago. The procedure was uncomplica taylor and patient had no swelling until about 10 days after the procedure when he noted the acute recurrence of some swelling in the right scrotum. Examinatio n consistent the fluid recurrence . We discussed possible causes of the recurrence including a reactive process versus a patent processes vaginalis. 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 the fluid in the right hemiscrotu m is stable. We discussed aspiration of the fluid and he wished to proceed. aspiration of the fluid was performed under local anesthetic . 120 cc of fluid was obtained. It appeared benign. Sterile dressing applied patient tolerated procedure well was seen back in 2 wks. Instructio ns given to restrict activity and continue scrotal support. Overactive urinary bladder [id number] N32.81 Patient with a daytime frequency and urgency and nocturia 2-4 times. His risk factors are aging, obesity and drinking significan t amount of caffeine per day. patient continues to have significan t urinary frequency despite the Gemtesa. He is to continue the Gemtesa and we will re-evaluat e at his follow-up. Health Concerns Section Related Observation LastModified by Organization Detai ls LastModified Time None Recorded Concern Status LastModified by Organization Details LastModified Time None Recorded Advance Directives Directive N: Payers Insurance Date Sequence Insurance Name Policy Number Policy Laguerre Covered Member ID Laguerre Member ID Guarantor Name 05/10/2024 1 [employer] (PPO) Noe Silvestre [id number] Noe Silvestre 05/10/2024 [employer] (MEDICARE REPLACEMENT/A DVANTAGE - PPO) Noe Silvestre [id number] Noe Silvestre Notes Date Note Type Note Provider Name and Address Organization Details Recorded Time 09/05/2022 text/html patient is a 62-year-old white male with a history of right-sided hydrocele. States that the hydroceles becoming more bothersome and at is painful when he rolls over at night and crosses his legs. He has previously been seen since at [facility] for the same problem and he elected watch and wait with symptoms are getting worse. Saw Dr. Merida for a small right-sided inguinal hernia and intervention was not recommended. Patient's discomfort more from the right scrotal region. Past history is significant COPD and diabetes. Iain Eckert Jr, MD [address] [place] [address], [address], [place], [address], [facility] 09/05/2022 11:48:58 11/13/2022 text/html Patient is a 62-year-old white male status post right hydrocele repair 2 weeks ago. States that he had no problems until 4 days ago and he woke up on Sunday and there was recurrent swelling in his right hemiscrotum. He denies any inciting event that may have caused this problem. His hydrocele the time the operation was not very large and very complicated procedure.Patient also with a microscopic hematuria during his previous visit and again today.Patient also with some urinary symptoms of frequency during the day and nocturia 4-5 times in the evening. He was placed on tamsulosin during previous visit states that his symptoms have improved but he is still having more frequency and nocturia than he would like. Iain Eckert Jr, MD [address] [place] [address], [address], [place], [address], [facility] [place] 11/13/2022 16:15:54 11/30/2022 text/html 62-year-old white male status post a uncomplicated right hydrocelectomy 1 month ago. Patient states that he had known problems until 10 days after his procedure when he noticed the acute recurrence of fluid in his right hemiscrotum. States he was very diligent about scrotal support and restriction of activities until that time. Did present immediately after the recurrence and he did have fluid in the right testicle. He returns today and her continues to be some fluid in the testicle is stable from the previous exam 2 weeks ago. Patient's past medical history is significant for a robotic UPJ obstruction several years ago.Patient has new complaint today of urinary frequency of every 15 20 minutes during the day. He gets up at night 2-4 times. He states significant urgency when he has to void. He does drink several L8-1 is during the day. Iain Eckert Jr, MD [address] [facility], [address], [place], [address], [facility] [place] 11/30/2022 10:51:33 12/28/2022 text/html ROS as noted in the HPI 62-year-old white male status post a uncomplicated right hydrocelectomy 2 month ago. Patient states that he had no problems until 10 days after his procedure when he noticed the acute recurrence of fluid in his right hemiscrotum. States he was very diligent about scrotal support and restriction of activities until that time. Did present immediately after the recurrence and he did have fluid in the right testicle. He returns today and her continues to be some fluid in the testicle is stable from the previous exam 4 weeks ago. 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 He gets up at night 2-4 times. He states significant urgency when he has to void. He has decreased his caffeine but not enough. He was placed on Gemtesa last month without success yet. Iain Eckert Jr, MD [address] [facility], [address], [place], [address], [facility] [place] 12/28/2022 17:23:19
--- OUTSIDE RECORDS SUMMARY | 2025-08-07 15:20 | XMS_ITS | Encounter Summary ---
Author Organization [employer] ([place], [place], [place], [place]) Address [address] [place] [address] Care Team Providers Care Inventory Auditor Name Role Phone Unavailable Primary Care Provider Unavailabl e Encounter Details Date Type Department Care Team (Late st Contact Info) Description 10/29/2020 Transcribed Document [facility] [place] [facility] [place] [address] ProviderFarhan MD [address] [place] [address] Social History Tobacco Use Types [...] - Farhan ProviderMD - 10/29/2020 8:39 AM [facility] Main OR IntraOp Summary Primary Physician: ADDIE VELIZ MD-SNU Finalized Date/Time: 10/30/20 16:24:05 Pt. Name: FRANSISCO CRAVEN/Sex: 1960 Male Med Rec #: [id number] Physician: ADDIE VELIZ MD-SNU Financial #: [id number] Pt. Type: I Room/Bed: [facility]/ Admit/Disch: 10/29/20 12:20:00 - Institution: [facility] IntraOp Case Attendance Entry 1 Entry 2 Entry 3 Case Attendee ADDIE VELIZ MD-SNU WASSON, SANDRA D, RN CLARI NORRIS RN Role Performed Surgeon/Proceduralist, Industrial Green Systems Designer, First Industrial Green Systems Designer, Second First Time In 10/29/20 08:13:00 10/29/20 [...] ASHLEY, APRN Role Performed Scrub, First Physician anesthesiologist assistant PEARL GLUE DRIER/Nurse Underwriter Time In 10/29/20 08:13:00 10/29/20 08:13:00 10/29/20 08:13:00 Time Out 10/29/20 10:35:00 10/29/20 10:35:00 10/29/20 10:35:00 Procedure Lumbar Fusion Posterior Lumbar Fusion Posterior Lumbar Fusion Posterior 3 Level 3 Level 3 Level Other Attendee Superficial Wound Closed By: Last Modified By: TAE HERNANDEZ, TEA BARRIOS, TAE BARRIOS, RN 10/29/20 10:35:34 10/29/20 10:35:34 10/29/20 10:35:34 Entry 7 Entry 8 Entry 9 Case Attendee Delma Escobedo, OTHER, ATTENDEE #1 ROCIO ALCALA RN Diagnostic Paraprofessional Interpreter Role Performed Electric Fan Assembler Vendor Industrial Green Systems Designer, Second Time In 10/29/20 08:13:00 10/29/20 08:13:00 [...] Case Attendee PROMISE ZAMORANO Sawyer, Susan, DAVID-GENI Continuous Improvement Coach Role Performed PEARL GLUE DRIER/Nurse Underwriter Electric Fan Assembler Time In 10/29/20 09:43:00 10/29/20 09:44:00 Time Out 10/29/20 09:55:00 10/29/20 10:14:00 Procedure Lumbar Fusion Posterior Lumbar Fusion Posterior 3 Level 3 Level Other Attendee PEARL GLUE DRIER BREAK RELIEF RT BREAK RELIEF Superficial Wound Closed By: Last Modified By: TAE HERNANDEZ, TAE BARRIOS, RN 10/29/20 09:44:46 10/29/20 09:44:46 [facility] IntraOp Case Attendance Audit 10/29/20 10:35:34 Oil Lease Buyer: WASSONSY Modifier: WASSONSY 1 <+> Time Out [...] Lumbar Fusion Posterior 3 Level 10/29/20 10:19:58 Oil Lease Buyer: WASSONSY Modifier: WASSONSY 7 <-> Time Out 10/29/20 09:44:00 7 <*> Procedure Lumbar Fusion Posterior 3 Level 11 <+> Time Out 11 <*> Procedure Lumbar Fusion Posterior 3 Level 10/29/20 10:11:32 Oil Lease Buyer: WASSONSY Modifier: WASSONSY 7 <+> Time Out 7 <*> Procedure Lumbar Fusion Posterior 3 Level 10/29/20 09:55:51 Oil Lease Buyer: WASSONSY Modifier: WASSONSY 10 <*> Time Out 10/29/20 10:03:00 10 <*> Procedure Lumbar Fusion Posterior 3 Level 10/29/20 09:44:46 Oil Lease Buyer: WASSONSY Modifier: WASSONSY <+> 10 Case Attendee <+> 10 Role Performed <+> 10 Time In <+> 10 Time Out <+> 10 Procedure <+> 10 Other Attendee <+> 11 Case Attendee <+> 11 Role Performed <+> 11 Time In <+> 11 Procedure <+> 11 Other Attendee 10/29/20 08:40:39 Oil Lease Buyer: WASSONSY Modifier: WASSONSY <+> 9 Case Attendee <+> 9 Role Performed <+> 9 Time In <+> 9 Time Out <+> 9 Procedure 10/29/20 08:39:35 Oil Lease Buyer: WASSONSY Modifier: WASSONSY 1 <*> Procedure Lumbar [...] Lumbar Fusion Posterior 3 Level 10/29/20 08:31:47 Oil Lease Buyer: WASSONSY Modifier: WASSONSY 1 <+> Time In [...] 8 Procedure <+> 8 Other Attendee [facility] IntraOp Case Times Entry 1 Patient In Room Time 10/29/20 08:13:00 Out Room Time 10/29/20 10:35:00 Anesthesia Start Time 10/29/20 08:13:00 Stop Time 10/29/20 10:35:00 Surgery / Procedure Times Start Time 10/29/20 08:39:00 Stop Time 10/29/20 10:27:00 Last Modified By: TAE HERNANDEZ RN 10/29/20 10:28:15 [facility] IntraOp Case Times Audit 10/29/20 10:35:30 Oil Lease Buyer: WASSONSY Modifier: WASSONSY <+> 1 Out Room Time <+> 1 Stop Time 10/29/20 10:28:15 Oil Lease Buyer: WASSONSY Modifier: WASSONSY <+> 1 Stop Time 10/29/20 08:39:38 Oil Lease Buyer: WASSONSY Modifier: WASSONSY <+> 1 Start Time [facility] IntraOp Cautery Entry 1 Entry 2 ESU Identification Cautery Type Monopolar ESU BiPolar ESU Cautery Type Comments ID Number [id number] ID Type Hospital Number Hospital Number Cautery [...] D, RN 10/29/20 08:47:23 10/29/20 08:47:23 [facility] IntraOp Cautery Audit 10/29/20 08:49:38 Oil Lease Buyer: WASSONSY Modifier: WASSONSY 1 <+> Grounding Pad Site 1 <*> Grounding Pad Applied By TAE HERNANDEZ RN [facility] IntraOp Communication Entry 1 Communication To Family/Significant other Comment START Communication By ROCIO ALCALA RN Date and Time 10/29/20 08:40:00 Last Modified By: TAE HERNANDEZ RN 10/29/20 08:40:48 [facility] IntraOp Counts Verification Entry 1 [...] [facility] IntraOp Counts Verification Audit 10/29/20 10:20:15 Oil Lease Buyer: WASSONSY Modifier: WASSONSY <+> 2 Procedure <+> 2 Count Type <+> 2 Counts Verification Sequence <+> 2 Count Results <+> 2 Count Performed By (Scrub) <+> 2 Count Performed By (RN) [facility] IntraOp Counts Final Entry 1 Procedure Lumbar Fusion Posterior 3 Level Final Count Info Count Type Sponge, Sharps, Miscellaneous Counts Verification Skin Closure/end of Sequence procedure Count Results Correct, surgeon notified Counts Performed By Count Performed By RAFAEL HAAS ST (Scrub) Count Performed By CLARI NORRIS RN (RN) Last Modified By: TAE HERNANDEZ RN 10/29/20 10:24:34 [facility] IntraOp Cultures and Spec Summary Entry 1 Cultrures and Specimens Specimen Ordered: Yes Test(s) Routine/Path-Lab Requested/Final Disposition Last Modified By: TAE HERNANDEZ RN 10/29/20 09:15:02 General Comments: A. EXPLANTED HARDWARE [facility] IntraOp Delays Entry 1 Delay Reason Surgeon late - did not call Duration 13 Minute(s) Last Modified By: TAE HERNANDEZ RN 10/29/20 08:50:02 [facility] IntraOp Departure from OR Entry 1 Integumentary Assessment Integumentary WDL Assessment WDL Transfer/Handoff Transfer to PACU Phase I Handoff Method Phone call Handoff Reported to Gabo Lim RN Post-op Transport Stretcher/Marilyn Via Patient Transport KAREN PEREA, Accompanied by MARY HERNANDEZ MEGHAN, PA Last Modified By: TAE HERNANDEZ RN 10/29/20 10:12:58 [facility] IntraOp Departure from OR Audit 10/29/20 10:12:58 Oil Lease Buyer: WASSONSY Modifier: WASSONSY <+> 1 Handoff Reported to 10/29/20 08:50:26 Oil Lease Buyer: WASSONSY Modifier: WASSONSY 1 <*> Post-op Transport Via Bed (including specialty) [facility] IntraOp Drains and Tubes Entry 1 Device Type Alcon Engel round drain Size 15 FR Drain/Tube Activity Inserted Drain/Tube Suction Bulb Drain/Tube Drainage Serosanguineous Device Location OP SITE Method of Drainage Compression Last Modified By: TAE HERNANDEZ RN 10/29/20 10:09:39 [facility] IntraOp Dressing and Packing Entry 1 Type Dressing Location back Wound Dressing Item Other Applied By CIRO HERNANDEZ PA Other Comments NEOSPORIN OINTMENT, COVADERMS Last Modified By: TAE HERNANDEZ RN 10/29/20 09:41:56 [facility] IntraOp Fire Risk Assessment Entry 1 Fire Info Surgical Site or 0- No Incision Above the Xyphoid Open O2 Source 0- No (Mask or Cannula) Available Ignition 1- Yes (ESU, Laser, Light Source) Fire Risk 1 Assessment Score Fire Score Fire Risk Yes Assessment Complete Fire Risk TAE HERNANDEZ food processing scientist Verified By Fire Risk 10/29/20 08:42:00 Assessment Verified Date/Time Fire Risk Standard Fire Yes Safety Precautions Followed Last Modified By: TAE HERNANDEZ RN 10/29/20 08:42:30 [facility] IntraOp General Case Building Rigger 1 Case Information OR OR 10 [facility] Case Level 1 Room Verified Yes Wound Class I - Clean Specialty SN Neurosurgery Anesthesia Type General ASA Class 3 Diagnosis Preop Diagnosis LUMBAR SPONDYLOLISTHESIS Postop Same As Preop No Postop Diagnosis PLEASE SEE MD NOTES. Last Modified By: TAE HERNANDEZ RN 10/29/20 08:45:22 [facility] IntraOp General Case Data Audit 10/29/20 08:51:32 Oil Lease Buyer: WASSONSY Modifier: WASSONSY 1 <*> Preop Diagnosis LUMBAR STENOSIS 10/29/20 08:46:36 Oil Lease Buyer: WASSONSY Modifier: WASSONSY <+> 1 Preop Diagnosis [facility] IntraOp Implant Log Entry 1 Entry 2 Entry 3 Type Tissue Implant Implant (Synthetic) Implant (Synthetic) (Biologic) Implant Log Implant Type Hardware Hardware Tissue Implant Type Bone Implant BONE VIVIGEN FORMABLE SPACR OPAL-RSLV SCR JEREMIAS FIX Identification CELL [id number] Description Implant Quantity 1 2 4 Implant Site OP SITE OP SITE OP SITE Implant Identification Model Number Implant [id number] Identification Serial Number Implant Identification Lot Number Implant Lifenet:Lifenet Synthes:Synthes J&J:Depuy:Depuy Spine Identification Transplant Srv Usa:Spine Solids Control Technician Name: Implant [id number] Identification Catalog Number Implant Size Implant Has an Yes Expiration Date Implant Expiration 09/30/21 Date Wasted Radioactive Material Time Implanted Tissue Implant Continue for Tissue Implant Documentation Tissue Identification Number Graft Prep Per Solids Control Technician Instructions: Tissue Preparation Method: Reconstitution Solution: Reconstitution Solution Lot Number Reconstitution Solution Expiration Date: Thawing Solution Thawing Solution Lot Number Thawing Solution Expiration Date Preparation Materials, Other Preparation Materials, Other Lot Number Preparation Materials, Other Expiration Date Tissue Prepared/Processed By Solids Control Technician Paperwork Completed Implant Type Comment Last Modified By: TAE HERNANDEZ, TAE BARRIOS RN WASSON, SANDRA D, RN 10/29/20 09:41:23 10/29/20 10:03:44 10/29/20 10:03:44 Entry 4 Entry 5 Entry 6 Type Implant (Synthetic) Implant (Synthetic) Implant (Synthetic) Implant Log Implant Type Hardware Hardware Hardware Tissue Implant Type Implant MIS FELA PLY SCRW SET LENNOX PRE LOAD [id number] LENNOX PRE LOAD [id number] Identification [id number] Description Implant Quantity 6 1 1 Implant Site OP SITE OP SITE OP SITE Implant Identification Model Number Implant Identification Serial Number Implant Identification Lot Number Implant J&J:Depuy:Depuy Spine J&J:Depuy:Depuy Spine J&J:Depuy:Depuy Spine Identification Solids Control Technician Name: Implant [id number] Identification Catalog Number Implant Size Implant Has an Expiration Date Implant Expiration Date Wasted Radioactive Material Time Implanted Tissue Implant Continue for Tissue Implant Documentation Tissue Identification Number Graft Prep Per Solids Control Technician Instructions: Tissue Preparation Method: Reconstitution Solution: Reconstitution Solution Lot Number Reconstitution Solution Expiration Date: Thawing Solution Thawing Solution Lot Number Thawing Solution Expiration Date Preparation Materials, Other Preparation Materials, Other Lot Number Preparation Materials, Other Expiration Date Tissue Prepared/Processed By Solids Control Technician Paperwork Completed Implant Type Comment Last Modified By: TAE HERNANDEZ RN WASSON, SANDRA D RN TAE HERNANDEZ RN 10/29/20 10:03:44 10/29/20 10:03:44 10/29/20 10:03:44 [facility] IntraOp Implant Log Audit 10/29/20 10:03:44 Oil Lease Buyer: DAVIDARLEN Modifier: WASSONSY <+> 2 Implant Identification Description <+> 2 Implant Identification Solids Control Technician Name: <+> 2 Implant Site <+> 2 Implant Quantity <+> 2 Implant Identification Catalog Number <+> 2 Implant Type <+> 2 Type <+> 3 Implant Identification Description <+> 3 Implant Identification Solids Control Technician Name: <+> 3 Implant Site <+> 3 Implant Quantity <+> 3 Implant Identification Catalog Number <+> 3 Implant Type <+> 3 Type <+> 4 Implant Identification Description <+> 4 Implant Identification Solids Control Technician Name: <+> 4 Implant Site <+> 4 Implant Quantity <+> 4 Implant Identification Catalog Number <+> 4 Implant Type <+> 4 Type <+> 5 Implant Identification Description <+> 5 Implant Identification Solids Control Technician Name: <+> 5 Implant Site <+> 5 Implant Quantity <+> 5 Implant Identification Catalog Number <+> 5 Implant Type <+> 5 Type <+> 6 Implant Identification Description <+> 6 Implant Identification Solids Control Technician Name: <+> 6 Implant Site <+> 6 Implant Quantity <+> 6 Implant Identification Catalog Number <+> 6 Implant Type <+> 6 Type [facility] IntraOp Intraoperative Assessment Entry 1 [...] By: TAE HERNANDEZ RN 10/29/20 08:51:48 [facility] IntraOp Intraoperative Assessment Audit 10/29/20 08:51:48 Oil Lease Buyer: HOPEIANARLEN Modifier: DAVIDSY 1 <*> Skin Assessment Verified Yes 1 <*> Handoff Method Bedside/Face to face [facility] IntraOp Intraoperative Equipment Entry 1 Type Equipment Equipment Equipment Abelardo Suction System ID Number [id number] Setting 200 MM HG Intraop Monitoring Electrocardiogram Five lead placement (ECG) Electrode Placement Blood Pressure Non-Invasive BP Device Source Blood Pressure Arm, right upper Location Pulse Oximeter Hand, left Probe Site Antiembolic Devices Antiembolic Devices Sequential compression device, knee high Antiembolic Device Bilateral Location Antiembolic Device [id number] ID Number Antiembolic Device standard Setting Scopes Photo/Video Documentation Photo No Video No Last Modified By: TAE HENRANDEZ RN 10/29/20 08:46:20 [facility] IntraOp Intraoperative Equipment Audit 10/29/20 08:52:26 Oil Lease Buyer: WASSONSY Modifier: WASSONSY 1 <+> ID Number 1 <*> Setting 200 1 <+> Electrocardiogram (ECG) Electrode Placement 1 <+> Blood Pressure Location 1 <+> Pulse Oximeter Probe Site 1 <+> Blood Pressure Source 1 <+> Antiembolic Device ID Number [facility] IntraOp Medication Admin Entry 1 Entry 2 Entry 3 Medication/Irrigant thrombin 5000units SPNG SURGFOAM SEALR AQUAMANTYS BIPLR topical powder - [id number] Combo Med List Time Administered Route of topical TOPICAL OTHER Administration Dose Dose 5000 1 Unit of Measure units pkt Volume qs Administered By ADDIE VELIZ MD-ADDIE PASCUAL MD-ADDIE PASCUAL MD-SNNegrita Procedure Irrigation Irrigant Volume In Irrigant Volume Out Last Modified By: TAE HERNANDEZ, TAE BARRIOS, TAE BARRIOS RN 10/29/20 08:53:36 10/29/20 08:53:36 10/29/20 08:53:36 Entry 4 Medication/Irrigant Neosporin 15Gm ointment - [id number] Combo Med List Time Administered Route of TOPICAL Administration Dose Dose 1 Unit of Measure pkt Volume Administered By CIRO HERNANDEZ PA Procedure Irrigation Irrigant Volume In Irrigant Volume Out Last Modified By: TAE HERNANDEZ RN 10/29/20 08:53:36 [facility] IntraOp Medication Admin Audit 10/29/20 08:53:36 Oil Lease Buyer: WASSONSY Modifier: WASSONSY 1 <*> Medication/Irrigant thrombin 5000units topical powder - [id number] <+> 2 Medication/Irrigant <+> 2 Route of Administration <+> 2 Administered By <+> 2 Dose <+> 2 Unit of Measure <+> 3 Medication/Irrigant <+> 3 Route of Administration <+> 3 Administered By <+> 4 Medication/Irrigant <+> 4 Route of Administration <+> 4 Administered By <+> 4 Dose <+> 4 Unit of Measure [facility] IntraOp Patient Positioning Entry 1 [...] By: TAE HERNANDEZ RN 10/29/20 09:05:55 [facility] IntraOp Sign In Entry 1 [...] By: TAE HERNANDEZ RN 10/29/20 08:54:11 [facility] IntraOp Sign In Audit 10/29/20 08:54:11 Oil Lease Buyer: HOPEIANSY Modifier: WASSONSY 1 <*> Surgical Site Marked by person Yes performing procedure 1 <*> Difficult Airway/Aspiration Risk No 1 <*> Blood Loss Risk No 1 <*> Blood Identifiers Verified Per Not applicable Policy [facility] IntraOp Sign Out Entry 1 [...] By: TAE HERNANDEZ RN 10/29/20 09:06:53 [facility] IntraOp Sign Out Audit 10/29/20 10:35:47 Oil Lease Buyer: MYAH Modifier: WASIANSY <+> 1 RN Sign Out Signature Date/Time [facility] IntraOp Skin Prep Entry 1 Procedure Lumbar Fusion Posterior 3 Level Prescribed Yes Pre-Surgical Prep Completed Prep Area back Intraop Prep Integumentary WDL Assessment WDL Prep Agents DuraPrep Prep by TAE HERNANDEZ, RN Hair Removal Methods No hair removal performed Last Modified By: TAE HERNANDEZ RN 10/29/20 08:45:47 [facility] IntraOp Surgical Procedures Entry 1 Procedure Lumbar Fusion Posterior 3 Level Additional (L3-5 PLIF USING AIRO) Procedure Description Primary Procedure Yes Primary Surgeon ADDIE VELIZ MD-SNU Start 10/29/20 08:39:00 Stop 10/29/20 10:27:00 Anesthesia Type General Specialty SN Neurosurgery Wound Class I - Clean Last Modified By: TAE HERNANDEZ RN 10/29/20 09:08:03 General Comments: CLLINDA [facility] IntraOp Surgical Procedures Audit 10/29/20 10:28:18 Oil Lease Buyer: MYAH Modifier: WASSONSY 1 <*> Stop [facility] IntraOp Temp Regulation Devices Entry 1 Temp Regulation Temperature Forced Air Warming Regulation Device device Temperature 55227 Regulation Device Serial/Unit Number Temperature Upper body Regulation Site Temperature Device 43 C Setting Temperature KAREN PEREA APRN Regulation Device Applied by Last Modified By: TAE HERNANDEZ RN 10/29/20 08:46:05 [facility] IntraOp Temp Regulation Devices Audit 10/29/20 09:06:09 Oil Lease Buyer: MYAH Modifier: MYAH <+> 1 Temperature Regulation Device Serial/Unit Number <+> 1 Temperature Device Setting [facility] IntraOP Time Out Entry 1 [...] By: TAE HERNANDEZ RN 10/29/20 08:44:19 [facility] IntraOp X-Ray and Images Entry 1 X-Ray/Imaging Type Other Fluoroscopy Type Other Site back Veterinary Anatomist Name Delma Escobedo, Diagnostic Paraprofessional Interpreter Protective Devices Yes Used X-Ray and Imaging brainlab intraoperative Comment ct scanner Last Modified By: TAE HERNANDEZ RN 10/29/20 08:46:47 [facility] IntraOp X-Ray and Images Audit 10/29/20 09:06:27 Oil Lease Buyer: MYAH Modifier: MYAH <+> 1 Veterinary Anatomist Name Case Comments <None> Finalized By: DENNYS SANTO Document Signatures Signed By: TAE HERNANDEZ RN 10/29/20 10:35 DENNYS SANTO 10/30/20 16:24 Unfinalized History Date/Time Username Reason for Unfinalizing Freetext Reason for Unfinalizing 10/30/20 16:22 [email or web address] Correct Billing Electronically signed by Kailey [facility] Conversion Technology Coach Cerner at 02/08/2023 12:31 PM CDT documented in this encounter Plan of Treatment Not on file documented as of this encounter Visit Diagnoses Not on filedocumented in this encounter
--- OUTSIDE RECORDS SUMMARY | 2025-08-07 15:20 | XMS_ITS | Encounter Summary ---
Author Organization [employer] ([place], [place], [place], [place]) Address [address] [place] [address] Care Team Providers Care Chro Name Role Phone Unavailable Primary Care Provider Unavailabl e Encounter Details Date Type Department Care Team (Late st Contact Info) Description 10/29/2020 Transcribed Document [facility] [place] [address] [place] [address] ProviderFarhan MD [address] [place] [address] Social History Tobacco Use Types [...] - Farhan ProviderMD - 10/29/2020 8:[address] Main OR PACU Summary Primary Physician: ADDIE VELIZ MD-[facility] Finalized Date/Time: 10/29/20 12:13:32 Pt. Name: FRANSISCO CRAVEN/Sex: 1960 Male Med Rec #: [id number] Physician: ADDIE VELIZ MD-SN Financial #: [id number] Pt. Type: I Room/Bed: / Admit/Disch: 09/22/20 10:37:00 - Institution: [facility] Main OR PACU I Case Times Entry 1 In PACU I 10/29/20 10:38:00 Ready for PACU 10/29/20 12:00:00 Discharge Discharge from PACU 10/29/20 12:00:00 I Last Modified By: DANIELLE CLANCY RN 10/29/20 12:13:15 Finalized By: DANIELLE CLANCY, RN Document Signatures Signed By: DANIELLE CLANCY RN 10/29/20 12:13 Electronically signed by Kailey [facility] Conversion Tax Manager Cerner at 02/08/2023 12:20 PM CDT documented in this encounter Plan of Treatment Not on file documented as of this encounter Visit Diagnoses Not on filedocumented in this encounter
--- OUTSIDE RECORDS SUMMARY | 2025-08-07 15:20 | XMS_ITS | Encounter Summary ---
Author Organization [employer] ([place], [place], [place], [place]) Address [address] [place] [address] Care Team Providers Care Datapower Developer Name Role Phone Unavailable Primary Care Provider Unavailabl e Encounter Details Date Type Department Care Team (Late st Contact Info) Description 10/26/2020 Transcribed Document [facility] [place] [facility] [place] [facility] [place] [address] ProviderFarhan MD [address] [place] [address] Social History Tobacco Use [...] - Historical ProviderMD - 10/26/2020 9:18 AM PEDIATRIC MEDICAL ASSISTANT PAT Adult Entered On: 10/26/2020 9:22 EST [...] Source : Estimated Height Entry Format : [employer] Bagel Height, Feet : 5 ft(Converted to: 152 cm, 60 Inch) Height, Inches : 9 Inch(Converted to: 0 ft 9 Inch, 22.86 cm) Clinical Height : 175.26 cm Weight Source : Standing scale Weight Entry Format : [place] Clinical Dosing Weight : 106.36 kg Weight, Pounds : 234 lb Body Surface Area (BSA) : 2.21 m2 Body Mass Index : 34.6 kg/m2 (HI) Crescent Body Weight : 70 kg Jolene Lino [...] : Yes Spiritual/Cultural Needs Comment : 10/29/20 Cheondoism Preference : Christian Spiritual/Cultural Needs Comment : 10/29/20 Toni Kirby Rn - 10/26/2020 9:18 EST [place] Suicide Severity Rating Scale (C-SSRS) CSSRS Past [...] RN - 10/29/2020 6:56 EST Support Person/Patient Cleaner And Presser : Yes Support Person/Pt Rep Name : Taylor Silvestre - Support Person/Pt Rep Contact Information : [phone] Want Family/Rep/Phys Notified of Admit : No Toni Kirby Rn - 10/26/2020 9:18 EST Emergency Contact #1 : Taylor Konrad Emergency Contact #1 ` Emergency Contact #1 Relationship : ` Jolene Lino Rn - 10/27/2020 10:51 EST Emergency Contact #2 : ` Emergency Contact #2 Phone Number : ` Emergency Contact #2 Relationship : ` Primary Language : Tongan Preferred Communication Mode : Verbal Communication Barrier : None Tube And Manifold Builder Needed : No Toni Kirby Rn - [...]
--- OUTSIDE RECORDS SUMMARY | 2025-08-07 15:20 | XMS_ITS | Encounter Summary ---
Author Organization [employer] ([place], [place], [place], [place]) Address [address] [place] [address] Care Team Providers Care Thiokol Operator Name Role Phone Unavailable Primary Care Provider Unavailabl e Encounter Details Date Type Department Care Team (Late st Contact Info) Description 10/28/2020 Transcribed Document [facility] [place] [address] [place] [address] ProviderFrahan MD [address] [place] [address] Social History Tobacco Use Types [...] - Historical ProviderMD - 10/28/2020 1:52 PM PERSONAL CHEF UM Authorization Entered On: 10/28/2020 13:54 EST Performed On: 10/28/2020 13:52 EST by ROLF LUDWIG RN-Utilization Review Primary Insurance Authorization Authorization and Policy Numbers : Insurance 1 Health Plan: [employer] CHO[employer] PPO Policy Number: [id number] Authorization Number: Insurance Primary Name : [employer] Choice [id number] Auth/Referral Contact Name-Primary : Alfredo Casas Authorization [...] or availity as of yet (DERICK SHIPMAN, Bee Farmer 10/28/2020 12:39) ROLF LUDWIG, RN-Utilization Review - 10/28/2020 13:52 EST Electronically signed by [facility], [facility] Conversion Maintenance Inspector Cerner at 02/08/2023 12:33 PM CDT documented in this encounter Plan of Treatment Not on file documented as of this encounter Visit Diagnoses Not on filedocumented in this encounter
--- OUTSIDE RECORDS SUMMARY | 2025-08-07 15:20 | XMS_ITS | Encounter Summary ---
Author Organization [employer] ([place], [place], [place], [place]) Address [address] [place] [address] Care Team Providers Care Freight Car Repairer Name Role Phone Unavailable Primary Care Provider Unavailabl e Encounter Details Date Type Department Care Team (Late st Contact Info) Description 10/28/2020 Transcribed Document [facility] [place] [address] [place] [address] ProviderFarhan MD [address] [place] [address] Social History Tobacco Use Types [...] - Historical ProviderMD - 10/28/2020 12:39 PM SPECIAL NEEDS LIBRARIAN UM Authorization Entered On: 10/28/2020 12:40 EST Performed On: 10/28/2020 12:39 EST by DERICK SHIPMAN, Carriage Setter Primary Insurance Authorization Authorization and Policy Numbers : Insurance 1 Health Plan: [employer] CHOICE PPO Policy Number: [id number] Authorization Number: Insurance Primary Name : [employer] Choice [id number] Auth/Referral Contact Name-Primary : Alfredo Casas Authorization [...] : No Authorization Comments Found DERICK SHIPMAN, Carriage Setter - 10/28/2020 12:39 EST Electronically signed by Kailey, [facility] Conversion Business Services Associate Cerner at 02/08/2023 12:46 PM CDT documented in this encounter Plan of Treatment Not on file documented as of this encounter Visit Diagnoses Not on filedocumented in this encounter
--- OUTSIDE RECORDS SUMMARY | 2025-08-07 15:20 | XMS_ITS | Encounter Summary ---
Author Organization [employer] ([place], [place], [place], [place]) Address [address] [place] [address] Care Team Providers Care Power Shovel Engineer Name Role Phone Unavailable Primary Care Provider Unavailabl e Encounter Details Date Type Department Care Team (Late st Contact Info) Description 10/26/2020 Transcribed Document [facility] Family Medicine [address] [place] [address] ProviderFarhan MD [address] [place] [id number] Social History Tobacco Use Types Packs/Day Years [...] - Historical ProviderMD - 10/26/2020 9:22 AM KEYBOARD TEACHER Spiritual Care Assessment Entered On: 10/29/2020 7:43 EST Performed On: 10/29/2020 7:27 EST by SADIE ALEX General Information Initial Visit : Yes Referred by : Patient Referral Reason Comment : Pre-surgery visit Ministry Provided to : Patient Restorationist Preference : Buddhism SADIE ALEX P - 10/29/2020 7:43 EST Spiritual Assessment Spiritual Assessment Comment/Summary Points : Provided pre-surgery visit and prayer. Spirital Assessment Comment/Summary Report : SPIRITUAL ASSESSMENT COMMENT/SUMMARY No qualifying data available. SADIE ALEX P - 10/29/2020 7:43 EST Interventions Emotional Support : Empathic/Engaged listening Spiritual and Restorationist : Prayer shared, Spiritual/Restorationist support provided SADIE ALEX - 10/29/2020 7:43 EST Electronically signed by Kailey [facility] Conversion Rn Palliative Cerner at 02/08/2023 12:38 PM CDT documented in this encounter Plan of Treatment Not on file documented as of this encounter Visit Diagnoses Not on filedocumented in this encounter
--- OUTSIDE RECORDS SUMMARY | 2025-08-07 15:21 | XMS_ITS | Encounter Summary ---
Author Organization [employer] ([place], [place], [place], [place]) Address [address] [place] [address] Care Team Providers Care Manager Roofing Name Role Phone Unavailable Primary Care Provider Unavailabl e Encounter Details Date Type Department Care Team (Late st Contact Info) Description 10/29/2020 Transcribed Document [facility] [place] Family Medicine [address] [place] [address] ProviderFarhan MD [address] [place], [place] [id number] Social History Tobacco Use Types Packs/Day Years [...] - Historical ProviderMD - 10/29/2020 12:20 PM LITHOPLATE MAKER Meds to Bed Enrollment Entered On: 10/29/2020 12:21 EST Performed On: 10/29/2020 12:20 EST by Matty Hoover, [employer]ER [employer] LEAD Meds to Bed Enrollment Patient Enrollment Decision: : Yes/enroll in meds to bed program Matty Hoover BUNDLER SEASONAL [employer] LEAD - 10/29/2020 12:21 EST documented in this encounter Plan of Treatment Not on file documented as of this encounter Visit Diagnoses Not on filedocumented in this encounter
--- OUTSIDE RECORDS SUMMARY | 2025-08-07 15:21 | XMS_ITS | Encounter Summary ---
Author Organization [employer] ([place], [place], [place], [place]) Address [address] [place] [address] Care Team Providers Care New Car Salesperson Name Role Phone Unavailable Primary Care Provider Unavailabl e Encounter Details Date Type Department Care Team (Late st Contact Info) Description 10/31/2020 Transcribed Document [facility] [place] [facility] [place] [address] ProviderFarhan MD [address] [id number] Social History Tobacco Use Types Packs/Day Years [...] - Historical ProviderMD - 10/31/2020 3:22 PM SCHEDULE CHECKER Discharge Summary, PT Entered On: 10/31/2020 15:23 [...] Chase PHYSICAL THERAPIST - 10/31/2020 15:22 EST Fdc Goals Mobility/Bed Mobility LTG PT Grid Goal [...]
--- OUTSIDE RECORDS SUMMARY | 2025-08-07 15:21 | XMS_ITS | Data Portability ---
Author Organization [facility] Address [address] [place] [address] Care Team Providers Care Telephoto Installer Name Role Phone AUDELIA GOODWIN Referring Provider [phone] Assessment Encounter Date Assessment Date Assessment LastModified by Organization Details LastModified Time 12/14/2020 12/14/2020 Mr. Silvestre doing really well after undergoing an L3-5 fusion with removal of pre-existing hardware at L5-S1. Severe back and leg pain have resolved. His x-rays look fine. His incision looks good. He's happy. I'll see him back in 2-3 months with repeat lumbar x-rays. He can start weaning his brace. He does not like the brace. We will send a note to his center maker hand that he can resume his arthritis medication sometime after December 27. [email or web address] Not available 12/14/2020 13:52:29 03/17/2021 03/17/2021 lumbar x ray performed today shows good placement of hardware without evidence of loosening Mr. Silvestre is a 60-year-old male status post L3 5 PLIF with L5-S1 hardware removal on 10/29/20. He has had good improvement in his preoperative pain. We discussed that he may return to his normal activities at this point. I discussed a referral for physical therapy for his posterior neck pain. He wants to hold off on this for now. We will keep follow-up open that he understands to call at any time with any questions or concerns. [email or web address] Not available 03/17/2021 14:47:03 12/26/2022 12/26/2022 ASSESSMENT: Mr. Silvestre returns to the office after last being seen in March 17, 2021 with reports of increasing pain above his lumbar incision that radiates down the bilateral lower extremities occasionally all the way down to his feet that is worse with standing or walking and requires him to use a cart to lean on if he is in the grocery store. IMAGING: No new imaging available for review. His last lumbar x-ray was taken March 17, 2021. I have reviewed these images personally and read the radiologist report. This reveals his spinal fusion from L3-S1 with screws and rods from L3-L5 with no sign of complication. Degenerative changes noted above the level of his fusion. Nurse practitioner visit PLAN: Lumbar AP, lateral, flexion, extension x-rays Lumbar MRI with and without contrast Follow-up with Dr. Veliz Mr. Silvestre is going get updated imaging of his lumbar spine to include lumbar x-rays to evaluate for any instability as well as a lumbar MRI to evaluate for any neural compression that could be causing his radicular symptoms. He will follow-up after these are complete with Dr. Veliz to review the results and determine if he could benefit from injections or surgical intervention. We did discuss that our office does not complete long-term, permanent disability that we do short-term disability following surgery so there is some confusion on if he possibly needs an FCE/ERICA for further evaluation of his disability status. They will move forward with the updated imaging at this time and follow-up to determine a plan of care moving forward. They verbalized understanding of all these instructions and are agreeable to this plan. They have no further questions or concerns at this time. 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 The stenosis here is severe. He is ultimately fused from L3-S1 and has L3-5 hardware.He has undergone conservative treatment over the years. None of this is really helped or lasted especially recently. I think he is a candidate for an L2-3 posterior lumbar interbody fusion with removal/revision of pre-existing hardware. He understands that unfortunately there would again be a risk of adjacent level disease. From my standpoint, this is a 62-year-old gentleman who has been declared disabled over the last 7 or 8 years.I am assuming a lot of this has been due to his back. At this point, his back is even worse than before. He has adjacent level disease again and is going to require more surgery.I do not think he is going to be able to return to gainful employment due to his back condition and multiply recurrent problems. I recommended the above-mentioned procedure. He is having some issues after urological procedure. He is going to get this sorted out first and he will call the office when he is ready to schedule. If we schedule surgery would be an L2-3 posterior lumbar interbody fusion with hardware revision/removal of from L3-L5 using [employer] neuro navigation and arrow intraoperative CT scan. He and his are happy with the plan. elan Not available 01/23/2023 10:23:13 10/09/2023 10/09/2023 Back and bilateral lower extremity pain. Stenosis at L2-3 which is severe. Status post L3-5 and remotely L5-S1 fusions. They are well after each surgery. I think he is symptomatic from L2-3. I recommend an L2-3 posterior lumbar interbody fusion with removal/revision of pre-existing hardware. His last MRI scan has been about 10 months old. Will have to repeat a lumbar MRI scan without contrast just to make sure he does not have any significant stenosis above L2-3. I may have him undergo a CT scan lumbar spine without contrast to make sure that he is fused from L3-5 and hardware stable. He understands will be in the hospital after surgery. We talked about the risk for adjacent level disease again. Hopefully this will be his last surgery. He and his wanted proceed. We will schedule it after November 09, 2022. If for some reason something is found on the cystoscopy We will need to make sure that it is okay with urology to proceed with surgery. I toldEder and his to make sure they ask his urologist to make sure it be okay to proceed with spine surgery. They were happy with the plan. elan Not available 10/09/2023 13:35:26 Plan of Treatment Reminders Order Date Submit Date Provider Last Modified By Organization Details Last Modified Time Details Appointments None recorded. Lab None recorded. Referral None recorded. Procedures None recorded. Surgeries None recorded. Imaging XR, lumbosacral spine, 4 or more view - standing with weights 2022 023 MILA [facility] Radiology [facility], [address] [place], [place], [phone], 3 17:06:21 Medication Orders None recorded. Patient TargetsNo targets recorded. Patient InstructionsNo instructions recorded. Reason for Referral None Reported. Results Created Date Observation Date Name Description Value Unit Range Abnormal Flag Note LastModifiedBy Organization Detail LastModifiedTime 12/14/19 21 12/14/2020 XR, lumbo sacra l spine , 2 or 3 view [facility] [address] [place] [address] [facility] [place] [address] Paticecil t Name: FRANSISCO tyler : [phone] Matthew tyler 6 Orderi ng Provid er: ADDIE VELIZ EXAM DATE: 2020 EXAM: XR LUMBAR AP/LAT CLINIC AL INFORM ATION: Postop erativ e. IMAGES PROVID ED: AP, latera l, and coned- down views of the lumbar spine. COMPAR RADHA: None. FINDIN GS AND IMPRES GUZMAN: Spinal fusion is noted at L3-S1 level with pedicu lar screws and connec ting rods. Surgic al hardwa re is satisf actori ly placed . No eviden ce of loosen ing or infect ion is seen. Mild degene rative change s are seen at other levels . Interp reted By: Edwina Catalan MD Electr onical ly Signed By: Edwina Catalan MD on 021 3:04 PM [email or web address] [facility] Radiology [facility] [address] [place], [phone], 12/31/2020 12:00:24 02/10/20 21 02/09/2021 XR, lumbo sacra l spine , 2 or 3 view [facility] [address] [place] [address] [place] [address] Patien t Name: FRANSSICO tyler : [address]62 Matthew tyler 6 Orderi ng Provid er: ADDIE VELIZ EXAM DATE: 2020 EXAM: XR LUMBAR AP/LAT CLINIC AL INFORM ATION: Postop erativ e. IMAGES PROVID ED: AP, latera l, and coned- down views of the lumbar spine. COMPAR RADHA: None. FINDIN GS AND IMPRES GUZMAN: Spinal fusion is noted at L3-L5 level with pedicu lar screws and connec ting rods. Surgic al hardwa re is satisf actori ly placed . No eviden ce of loosen ing or infect ion is seen. Other levels are normal . Interp reted By: Edwina Catalan MD Electr onical ly Signed By: Edwina Catalan MD on 021 9:[address] Radiology [facility] [address] [place] [address], [phone], 03/04/2021 13:47:01 03/17/20 21 03/17/2021 XR, lumbo sacra l spine , 2 or [address] [address] Paticecil tyler Name: FRANSISCO tyler : [address]62 Paticecil t 6 Orderi ng Provid er: ADDIE VELIZ EXAM DATE: 2020 EXAM: XR LUMBAR AP/LAT CLINIC AL INFORM ATION: Postop erativ e. IMAGES PROVID ED: AP, latera l, and coned- down views of the lumbar spine. COMPAR RADHA: None. FINDIN GS AND IMPRES GUZMAN: Spinal fusion is noted at L3-S1 level with pedicu lar screws and connec ting rods at L3-L5. Surgic al hardwa re is satisf actori ly placed . No eviden ce of loosen ing or infect ion is seen. Other levels are normal . Interp reted By: Edwina Catalan MD Electr onical ly Signed By: Edwina Catalan MD on 021 2:[email or web address] Radiology [facility] [address] [place] [address], [phone], 04/03/2021 17:13:52 10/27/19 22 10/10/2021 elect romyo gram + nerve condu ction study No observ ation record ed. [email or web address] [facility] [address], [place], [place], [address], 12/26/2022 12:45:46 12/27/19 23 12/26/2022 XR, lumbo sacra l spine , 4 or more view [address] [facility] [place] [address] Matthew tyler Name: FRANSISCO tyler : [address]62 Matthew tyler 6 Orderi ng Provid er: CECELIANUNU HARRISAR T EXAM DATE: 2022 EXAM: XR LUMBAR SPINE AP/LAT /FLEX/ EXT CLINIC AL INFORM ATION: Back pain. IMAGES PROVID ED: AP, latera l and coned- down views of the lumbar spine with additi onal latera l views in flexio n and extens ion. COMPAR RADHA: None. FINDIN GS AND IMPRES GUZMAN: Spinal brittney ctomy and fusion are seen at L3-S1 level. Surgic al hardwa re is satisf actori ly placed . No abnorm al moveme nt is seen in flexio n or extens ion. Degene rative change s are seen at other levels . No instab ility is seen. Interp reted By: Edwina Catalan MD Electr onical ly Signed By: Edwina Catalan MD on 12/27/19 5:01 PM [email or web address] [facility] Radiology [facility] [address] [place], [phone], 01/12/2023 15:34:52 01/18/20 23 01/17/2023 MRI, lumba r spine , w/wo contr ast [place] [address] [facility] [place] [address] Matthew tyler Name: FRANSISCO tyler : [address]62 Matthew tyler 6 Orderi ng Provid er: CECELIANUNU HARRISAR T EXAM DATE: 2022 EXAM: MR LUMBAR SPINE W/WO CONTRA ST HISTOR Y: 62-yea r-old male with chroni c low back pain and prior lumbar surger y. COMPAR RADHA: Radiog raph dated 12/27/19 23 The patien t did not requir e sedati on for this exam. A baseli ne serum creati nine with eGFR was obtain ed prior to inject ion of contra st medium due to the patien ts risk factor s for NIKKI. Calcul ated eGFR at time of exam was GFR=45 FINDIN GS: The patien t is status post discec shoaib, interb lola graft, machine veneer repairer ior fusion and brittney ctomy from L3 throug h S1. There is parama gnetic artifa ct from the pedicl e screws and machine veneer repairer ior fusion hardwa re from L3 throug h L5. There is prior remova l of screws from the S1 level. There is dextro curvat ure of the lumbar spine. There is mild machine veneer repairer ior listhe sis of L1 on L2 and L5 on S1. There is no eviden ce of fractu re. There is modera te to severe anteri or margin al osteop hytic spurri ng. No pathol ogic lesion is identi fied in the lumbar spine. There are multip le Schmor l's nodes. The conus medull jamil is normal in appear ance at the L2 level. T11-T1 2 and T12-L1 : There are small disc bulges . There is no centra l canal narrow ing or neural forami nal narrow ing. L1-L2: There is a broad- based disc protru guzman and endpla te spurri ng. There is no centra l canal stenos is. There is modera te bilate ral neural forami nal stenos is. L2-L3: There is a diffus e disc protru guzman, endpla te spurri ng and modera te facet arthro scott. There is discog enic marrow edema at this level which may reflec t instab ility. There is severe centra l canal stenos is. There is severe left and modera te right neural forami nal stenos is. L3-L4: There is prior fusion with residu al endpla te spurri ng. There is no centra l canal stenos is. There is modera te bilate ral neural forami nal stenos is. L4-L5: There is prior fusion with residu al endpla te spurri ng. There is no centra l canal stenos is. There is modera te bilate ral neural forami nal stenos is. L5-S1: There is prior fusion with residu al endpla te spurri ng. There is no centra l canal stenos is. There is modera te/sev ere bilate ral neural forami nal stenos is. After intrav enous admini strati on of [address] ([facility] [id number] 2), there is no abnorm al enhanc ement in the lumbar spine. IMPRES GUZMAN: 1. There is severe centra l canal stenos is, and severe left and modera te right neural forami nal narrow ing at L2-L3. 2. There is prior PLIF from L3 throug h S1. There is modera te to severe residu al neural forami nal stenos is at these levels . 3. There is also modera te bilate ral neural forami nal narrow ing at L1-L2. Interp reted By: Denys reed MD Electr onical ly Signed By: Denys reed MD on 023 11:31 AM [email or web address] [facility] Radiology [facility] [address] [place], [phone], 01/17/2023 17:55:31 10/19/20 23 10/19/2023 MRI, lumba r spine , w/o contr ast [address] [address] Matthew tyler Name: FRANSISCO tyler : [address]62 Matthew tyler 6 Orderi ng Provid er: ADDIE VELIZ EXAM DATE: 2022 EXAM: MR LUMBAR W/O CONTRA ST HISTOR Y: 63-yea r-old male with chroni c low back pain, and pain and numbne ss in the lower extrem ities. The patien t has had prior lumbar surger y. COMPAR RADHA: CT scan of the same date and prior MRI dated 023. FINDIN GS: The matthew t is status post discec shoaib, interb lola graft, machine veneer repairer ior fusion and brittney ctomie s from L3 throug h S1. There is parama gnetic artifa ct from the interb lola spacer s, and the pedicl e screws and machine veneer repairer ior fusion rods from L3 throug h L5. There is prior remova l of pedicl e screws at the S1 level. There is dextro curvat ure from L1 throug h L4, and levocu rvatur e at L4-L5. There is mild machine veneer repairer ior listhe sis of L1 on L2 and L5 on S1, and mild anteri or listhe sis of L3 on L4 and L4 on L5. There is no fractu re. There is modera te anteri or margin al osteop hytic spurri ng. No pathol ogic lesion is identi fied in the lumbar spine. There is discog enic marrow edema at L2-L3. There is no darío edema in the disc space. There are multip le Schmor l's nodes. The conus medull jamil is normal in appear ance and termin ates at the L2 level. T11-T1 2 and T12-L1 : There are mild disc bulges . There is no centra l canal stenos is or neural forami nal stenos is. L1-L2: There is a broad- based disc protru guzman, mild endpla te spurri ng and mild facet arthro scott. There is no centra l canal stenos is. There is modera te bilate ral neural forami nal stenos is. L2-L3: There is a diffus e disc protru guzman, mild endpla te spurri ng and severe facet arthro scott. There is severe centra l canal stenos is. There is severe left and modera te right neural forami nal stenos is. L3-L4: There is prior fusion with residu al endpla te spurri ng and facet arthro scott. There is no centra l canal stenos is. There is severe left and modera te right neural forami nal stenos is. L4-L5: There is prior fusion with residu al endpla te spurri ng and facet arthro scott. There is no centra l canal stenos is. There is severe right and modera te/sev ere left neural forami nal stenos is. L5-S1: There is prior fusion with residu al endpla te spurri ng and facet arthro scott. There is no centra l canal stenos is. There is severe bilate ral neural forami nal stenos is. The parasp inous muscul ature is mildly atroph ic. IMPRES GUZMAN: 1. The paticecil t is status post PLIF from L3 throug h S1. There is severe residu al neural forami nal stenos is. 2. There is severe centra l canal stenos is, and severe left and modera te right neural forami nal narrow ing at L2-L3. There is discog enic marrow edema at this level which may imply instab ility. 3. There is modera te bilate ral neural forami nal stenos is at L1-L2. Interp reted By: Denys reed MD Electr onical ly Signed By: Denys reed MD on 2022 3:48 PM [email or web address] [facility] Radiology [facility] [address] [place] [address], [phone], 11/14/2023 20:28:44 10/19/20 23 10/19/2023 CT, lumba r spine , w/o contr ast [address] [address] Matthew tyler Name: FRANSISCO tyler : [address]62 Matthew tyler 6 Orderi ng Provid er: ADDIE VELIZ EXAM DATE: 2022 EXAM: CT LUMBAR WITHOU T CONTRA ST HISTOR Y: 63-yea r-old male with low back pain and bilate ral leg pain. The patien t has had prior lumbar fusion . COMPAR RADHA: MRI of the same date and prior CT scan dated 020 TECHNI QUE: 1 mm direct axial slices were obtain ed throug h the lumbar spine. Comput er-gen erated axial, sagitt al, and ann l recons tructi ons are also provid ed for interp retati on. FINDIN GS: The patien t is status post discec shoaib, interb lola graft, machine veneer repairer ior fusion and brittney ctomie s from L3 throug h S1. There is beam harden ing artifa ct from the interb lola spacer s, and the pedicl e screws and machine veneer repairer ior fusion rods from L3 throug h L5. There is no eviden ce of loosen ing of the hardwa re. There is prior remova l of pedicl e screws at the S1 level. There is dextro curvat ure from L1 throug h L4, and levocu rvatur e at L4-L5. There is mild machine veneer repairer ior listhe sis of L1 on L2 and L5 on S1, and mild anteri or listhe sis of L3 on L4 and L4 on L5. There is no fractu re. There is modera te anteri or margin al osteop hytic spurri ng. No pathol ogic lesion is identi fied in the lumbar spine. There are multip le Schmor l's nodes. T11-T1 2 and T12-L1 : There are mild disc bulges . There is no centra l canal stenos is or neural forami nal stenos is. L1-L2: There is a broad- based disc protru guzman, mild endpla te spurri ng and mild facet arthro scott. There is no centra l canal stenos is. There is modera te bilate ral neural forami nal stenos is. L2-L3: There is a diffus e disc protru guzman, mild endpla te spurri ng and severe facet arthro scott. There is severe centra l canal stenos is. There is severe left and modera te right neural forami nal stenos is. L3-L4: There is prior fusion with residu al endpla te spurri ng and facet arthro scott. There is no centra l canal stenos is. There is severe left and modera te right neural forami nal stenos is. L4-L5: There is prior fusion with residu al endpla te spurri ng and facet arthro scott. There is no centra l canal stenos is. There is severe right and modera te/sev ere left neural forami nal stenos is. L5-S1: There is prior fusion with residu al endpla te spurri ng and facet arthro scott. There is no centra l canal stenos is. There is severe bilate ral neural forami nal stenos is. There are mild degene rative change s in the SI joints . IMPRES GUZMAN: 1. The patien t is status post PLIF from L3 throug h S1. There is no eviden ce of loosen ing of the hardwa re. There is severe residu al neural forami nal stenos is. 2. There is severe centra l canal stenos is, and severe left and modera te right neural forami nal narrow ing at L2-L3. 3. There is modera te bilate ral neural forami nal stenos is at L1-L2. Interp reted By: Denys reed MD Electr onical ly Signed By: Denys reed MD on 2022 3:[address] Radiology [address], [phone], 11/14/2023 20:28:43 Result Notes Documentation Provider Name and Address Organization Details Recorded Time Xr, Lumbosacral Spine, 2 Or 3 View : [address] [address] Patient Name: FRANSISCO SILVESTRE Patient : 1960 Patient Ordering Provider: ADDIE VELIZ EXAM DATE: 12/14/2020 EXAM: XR LUMBAR AP/LAT CLINICAL INFORMATION: Postoperative. IMAGES PROVIDED: AP, lateral, and coned-down views of the lumbar spine. COMPARISON: None. FINDINGS AND IMPRESSION: Spinal fusion is noted at L3-S1 level with pedicular screws and connecting rods. Surgical hardware is satisfactorily placed. No evidence of loosening or infection is seen. Mild degenerative changes are seen at other levels. Interpreted By: Sharif Catalan MD E VELIZ MD [address] [place] [address], [phone], [facility] 12/31/2020 12:00:24 Xr, Lumbosacral Spine, 2 Or 3 View : [address] [address] Patient Name: FRANSISCO SILVESTRE Patient : 1960 Patient Ordering Provider: ADDIE VELIZ EXAM DATE: 02/09/2021 EXAM: XR LUMBAR AP/LAT CLINICAL INFORMATION: Postoperative. IMAGES PROVIDED: AP, lateral, and coned-down views of the lumbar spine. COMPARISON: None. FINDINGS AND IMPRESSION: Spinal fusion is noted at L3-L5 level with pedicular screws and connecting rods. Surgical hardware is satisfactorily placed. No evidence of loosening or infection is seen. Other levels are normal. Interpreted By: Sharif Catalan MD E VELIZ MD [address] [place] [address], [phone], [facility] 03/04/2021 13:47:01 Xr, Lumbosacral Spine, 2 Or 3 View : [place] [address] Patient Name: FRANSISCO SILVESTRE Patient : 1960 Patient Ordering Provider: ADDIE VELIZ EXAM DATE: 03/17/2021 EXAM: XR LUMBAR AP/LAT CLINICAL INFORMATION: Postoperative. IMAGES PROVIDED: AP, lateral, and coned-down views of the lumbar spine. COMPARISON: None. FINDINGS AND IMPRESSION: Spinal fusion is noted at L3-S1 level with pedicular screws and connecting rods at L3-L5. Surgical hardware is satisfactorily placed. No evidence of loosening or infection is seen. Other levels are normal. Interpreted By: Sharif Catalan MD E VELIZ MD [address] [place] [address], [phone], [facility] 04/03/2021 17:13:52 Xr, Lumbosacral Spine, 4 Or More View : [place] [address] Patient Name: FRANSISCO SILVESTRE Patient : 1960 Patient Ordering Provider: CECELIA WELLS EXAM DATE: 12/26/2022 EXAM: XR LUMBAR SPINE AP/LAT/FLEX/EXT CLINICAL INFORMATION: Back pain. IMAGES PROVIDED: AP, lateral and coned-down views of the lumbar spine with additional lateral views in flexion and extension. COMPARISON: None. FINDINGS AND IMPRESSION: Spinal laminectomy and fusion are seen at L3-S1 level. Surgical hardware is satisfactorily placed. No abnormal movement is seen in flexion or extension. Degenerative changes are seen at other levels. No instability is seen. Interpreted By: Sharif Catalan MD LIA WELLS, CUSTOMER PROJECT MANAGER [address] [place] [address], [phone] 01/12/2023 15:34:52 Mri, Lumbar Spine, W/wo Contrast : [facility] [address] [place] [address] Patient Name: FRANSISCO SILVESTRE Patient : 1960 Patient Ordering Provider: CECELIA WELLS EXAM DATE: 01/17/2023 EXAM: MR LUMBAR SPINE W/WO CONTRAST HISTORY: 62-year-old male with chronic low back pain and prior lumbar surgery. COMPARISON: Radiograph dated 12/26/2022 The patient did not require sedation for this exam. A baseline serum creatinine with eGFR was obtained prior to injection of contrast medium due to the patients risk factors for NIKKI. Calculated eGFR at time of exam was GFR=45 FINDINGS: The patient is status post discectomy, interbody graft, posterior fusion and laminectomy from L3 through S1. There is paramagnetic artifact from the pedicle screws and posterior fusion hardware from L3 through L5. There is prior removal of screws from the S1 level. There is dextrocurvature of the lumbar spine. There is mild posterior listhesis of L1 on L2 and L5 on S1. There is no evidence of fracture. There is moderate to severe anterior marginal osteophytic spurring. No pathologic lesion is identified in the lumbar spine. There are multiple Schmorl's nodes. The conus medullaris is normal in appearance at the L2 level. T11-T12 and T12-L1: There are small disc bulges. There is no central canal narrowing or neural foraminal narrowing. L1-L2: There is a broad-based disc protrusion and endplate spurring. There is no central canal stenosis. There is moderate bilateral neural foraminal stenosis. L2-L3: There is a diffuse disc protrusion, endplate spurring and moderate facet arthropathy. There is discogenic marrow edema at this level which may reflect instability. There is severe central canal stenosis. There is severe left and moderate right neural foraminal stenosis. L3-L4: There is prior fusion with residual endplate spurring. There is no central canal stenosis. There is moderate bilateral neural foraminal stenosis. L4-L5: There is prior fusion with residual endplate spurring. There is no central canal stenosis. There is moderate bilateral neural foraminal stenosis. L5-S1: There is prior fusion with residual endplate spurring. There is no central canal stenosis. There is moderate/severe bilateral neural foraminal stenosis. After intravenous administration of 10 mL Gadavist ([facility] [id number]), there is no abnormal enhancement in the lumbar spine. IMPRESSION: 1. There is severe central canal stenosis, and severe left and moderate right neural foraminal narrowing at L2-L3. 2. There is prior PLIF from L3 through S1. There is moderate to severe residual neural foraminal stenosis at these levels. 3. There is also moderate bilateral neural foraminal narrowing at L1-L2. Interpreted By: Evangelist Lazar MD LIA WELLS APRN [address] [place] [address], [phone], [facility] 01/17/2023 17:55:31 Mri, Lumbar Spine, W/o Contrast : [address] [address] Patient Name: FRANSISCO SILVESTRE Patient : 1960 Patient Ordering Provider: ADDIE VELIZ EXAM DATE: 10/19/2023 EXAM: MR LUMBAR W/O CONTRAST HISTORY: 63-year-old male with chronic low back pain, and pain and numbness in the lower extremities. The patient has had prior lumbar surgery. COMPARISON: CT scan of the same date and prior MRI dated 01/17/2023. FINDINGS: The patient is status post discectomy, interbody graft, posterior fusion and laminectomies from L3 through S1. There is paramagnetic artifact from the interbody spacers, and the pedicle screws and posterior fusion rods from L3 through L5. There is prior removal of pedicle screws at the S1 level. There is dextrocurvature from L1 through L4, and levocurvature at L4-L5. There is mild posterior listhesis of L1 on L2 and L5 on S1, and mild anterior listhesis of L3 on L4 and L4 on L5. There is no fracture. There is moderate anterior marginal osteophytic spurring. No pathologic lesion is identified in the lumbar spine. There is discogenic marrow edema at L2-L3. There is no darío edema in the disc space. There are multiple Schmorl's nodes. The conus medullaris is normal in appearance and terminates at the L2 level. T11-T12 and T12-L1: There are mild disc bulges. There is no central canal stenosis or neural foraminal stenosis. L1-L2: There is a broad-based disc protrusion, mild endplate spurring and mild facet arthropathy. There is no central canal stenosis. There is moderate bilateral neural foraminal stenosis. L2-L3: There is a diffuse disc protrusion, mild endplate spurring and severe facet arthropathy. There is severe central canal stenosis. There is severe left and moderate right neural foraminal stenosis. L3-L4: There is prior fusion with residual endplate spurring and facet arthropathy. There is no central canal stenosis. There is severe left and moderate right neural foraminal stenosis. L4-L5: There is prior fusion with residual endplate spurring and facet arthropathy. There is no central canal stenosis. There is severe right and moderate/severe left neural foraminal stenosis. L5-S1: There is prior fusion with residual endplate spurring and facet arthropathy. There is no central canal stenosis. There is severe bilateral neural foraminal stenosis. The paraspinous musculature is mildly atrophic. IMPRESSION: 1. The patient is status post PLIF from L3 through S1. There is severe residual neural foraminal stenosis. 2. There is severe central canal stenosis, and severe left and moderate right neural foraminal narrowing at L2-L3. There is discogenic marrow edema at this level which may imply instability. 3. There is moderate bilateral neural foraminal stenosis at L1-L2. Interpreted By: Evangelist Lazar MD E VELIZ MD [address] [place] [address], [phone], [facility] 11/14/2023 20:28:44 Ct, Lumbar Spine, W/o Contrast : [facility] [address] [place] [address] Patient Name: FRANSISCO SILVESTRE Patient : 1960 Patient Ordering Provider: ADDEI VELIZ EXAM DATE: 10/19/2023 EXAM: CT LUMBAR WITHOUT CONTRAST HISTORY: 63-year-old male with low back pain and bilateral leg pain. The patient has had prior lumbar fusion. COMPARISON: MRI of the same date and prior CT scan dated 09/21/2020 TECHNIQUE: 1 mm direct axial slices were obtained through the lumbar spine. Computer-generated axial, sagittal, and coronal reconstructions are also provided for interpretation. FINDINGS: The patient is status post discectomy, interbody graft, posterior fusion and laminectomies from L3 through S1. There is beam hardening artifact from the interbody spacers, and the pedicle screws and posterior fusion rods from L3 through L5. There is no evidence of loosening of the hardware. There is prior removal of pedicle screws at the S1 level. There is dextrocurvature from L1 through L4, and levocurvature at L4-L5. There is mild posterior listhesis of L1 on L2 and L5 on S1, and mild anterior listhesis of L3 on L4 and L4 on L5. There is no fracture. There is moderate anterior marginal osteophytic spurring. No pathologic lesion is identified in the lumbar spine. There are multiple Schmorl's nodes. T11-T12 and T12-L1: There are mild disc bulges. There is no central canal stenosis or neural foraminal stenosis. L1-L2: There is a broad-based disc protrusion, mild endplate spurring and mild facet arthropathy. There is no central canal stenosis. There is moderate bilateral neural foraminal stenosis. L2-L3: There is a diffuse disc protrusion, mild endplate spurring and severe facet arthropathy. There is severe central canal stenosis. There is severe left and moderate right neural foraminal stenosis. L3-L4: There is prior fusion with residual endplate spurring and facet arthropathy. There is no central canal stenosis. There is severe left and moderate right neural foraminal stenosis. L4-L5: There is prior fusion with residual endplate spurring and facet arthropathy. There is no central canal stenosis. There is severe right and moderate/severe left neural foraminal stenosis. L5-S1: There is prior fusion with residual endplate spurring and facet arthropathy. There is no central canal stenosis. There is severe bilateral neural foraminal stenosis. There are mild degenerative changes in the SI joints. IMPRESSION: 1. The patient is status post PLIF from L3 through S1. There is no evidence of loosening of the hardware. There is severe residual neural foraminal stenosis. 2. There is severe central canal stenosis, and severe left and moderate right neural foraminal narrowing at L2-L3. 3. There is moderate bilateral neural foraminal stenosis at L1-L2. 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 From Automated Load;Provi inna: Angie Smallwood;Stat us: Active Not Available [facility] 6 03:15:55 Gluteal tendiniti s 46904200 Active 2014 From Automated Load;Provi inna: Angie Smallwood;Stat us: Active Not Available [facility] 6 03:15:55 Spontaneo us rupture of flexor tendons 434817566 Active 2014 From Automated Load;Provi inna: Robert Wu;Stat us: Active Not Available [facility] 6 03:15:55 Shoulder joint pain 508087616 Active 2014 From Automated Load;Provi inna: Robert Wu;Stat us: Active Not Available [facility] 6 03:16:01 Partial thickness rotator cuff tear 194206842 Active 2015 From Automated Load;Provi inna: Robert Wu;Stat us: Active Not Available [facility] 6 03:15:55 Bite - wound 669218633 Active 2015 From Automated Load;Provi inna: Robert Wu;Stat us: Active Not Available [facility] 7 06:13:36 Celluliti s of finger 61899934 Active 2015 From Automated Load;Provi inna: Robert Wu;Stat us: Active Not Available [facility] 7 07:07:05 Idiopathi c aseptic necrosis of bone 098194765 Active 2015 From Automated Load;Provi inna: Ministerio Ross;St atus: Active Not Available [facility] 7 08:12:31 Problem Notes None recorded. Procedures Surgical History Date Name Laterality Status Provider Name and Address Organization Details Recorded Time 10/29/19 21 POSTERIOR LUMBAR INTERBODY FUSION, ADDITIONAL INTERSPACE (SURG) completed Maddie Denton [facility] 11/19/2020 13:18:57 04/18/20 17 Post-Op Staple Removal completed ADDY FLORES PA-C [address] [place] [address], [phone], [facility] 04/18/2017 14:48:01 04/04/20 17 POSTERIOR LUMBAR INTERBODY FUSION, SINGLE INTERSPACE (SURG) completed Pam Espinoza [facility] 05/10/2017 13:56:43 Imaging Results None recorded. Procedure Notes None recorded. Medical Equipment None Reported. Allergies Allergen ID Allergen Name Allergen Category Reaction Reaction Severity Criticality Documentation Date Start Date Code Code System Note Provider Name and Address Organization Details Recorded Time 508143 Product containin g penicilli n (product) medicatio n Not available Not available Not available 09/15/20162014 75867 8001 SNOMED Comme nt: Creat ed By: Myke blanchard;Darwin augustine Date: 015 1:31: 15 PM; Not Available [facility] 6 07:51:09 Medications Name Sig Start Date Stop Date Status Note LastModified by Organization Details LastModified Time cyclobenz aprine 10 mg tablet Take 1 tablet 3 times a day by oral route as needed. 2020 active Not Available Not Available Not Avai lable fluconazo le 100 mg tablet TAKE 1 TABLET BY MOUTH ONCE A DAY. active Not Available Not Available No t Available metformin 500 mg tablet Two times a day active Frequenc y: bid;Alt Frequenc y: with food;Med ication Descript ion: metformi n; Dosage:1 ; Route:or al; refills: 5; Quantity :60 tablet Not Available Not Available Not Available Percocet 7.5 mg-325 mg tablet Take 1 tablet every 6 hours by oral route as needed. 2020 active Not Available Not Available Not Avai lable doxycycli ne hyclate 100 mg capsule TAKE (1) CAPSULE BY MOUTH TWICE DAILY. active Not Available Not Available No t Available atorvasta tin 20 mg tablet TAKE 1 TABLET BY MOUTH ONCE A DAY FOR CHOLESTE ROL active Not Available Not Available No t Available nabumeton e 750 mg tablet Take 1 tablet twice a day by oral route. 2016 active Not Available Not Available Not Avai lable atorvasta tin 10 mg tablet TAKE 1 TABLET BY MOUTH ONCE A DAY FOR CHOLESTE ROL active Not Available Not Available No t Available cilostazo l 50 mg tablet TAKE (1) TABLET BY MOUTH TWICE A DAY. active Not Available Not Available No t Available ondansetr on HCl 4 mg tablet TAKE 1-2 TABLETS BY MOUTH EVERY EIGHT HOURS NEEDED FOR NAUSEA AND VOMITING active Not Available Not Available No t Available glipizide 10 mg tablet TAKE 1 TABLET BY MOUTH ONCE A DAY. active Not Available Not Available No t Available Medrol (Eriberto) 4 mg tablets in a dose pack DIRECTED 2018 active Not Available Not Available Not Avai lable prednison e 20 mg tablet TAKE (2) TABLETS BY MOUTH DAILY. active Not Available Not Available No t Available hydrocodo ne bitartrat e (bulk) 100 % powder 12/11 completed Medicati on Descript ion: hydrocod one; Route:co mpoundin g; refills: 0 Not Available Not Available Not Available prednison e 5 mg tablet TAKE 1 TABLET BY MOUTH ONCE A DAY. active Not Available Not Available No t Available clobetaso l 0.05 % topical cream APPLY TO AREA ON ARMS AND HANDS TWICE DAILY FOR 2 WEEKS, STOP FOR 2 WEEKS THEN REPEAT CYCLE active Not Available Not Available No t Available venlafaxi ne ER 150 mg capsule,e xtended release 24 hr TAKE (1) CAPSULE BY MOUTH ONCE A DAY. active Not Available Not Available No t Available acetamino phen 300 mg-codein e 30 mg tablet TAKE (1) TABLET BY MOUTH EVERY SIX HOURS. active Not Available Not Available No t Available ciproflox acin 500 mg tablet TAKE (1) TABLET BY MOUTH TWICE A DAY. active Not Available Not Available No t Available sulfameth oxazole 800 mg-trimet hoprim 160 mg tablet active Not Available Not Available Not Available hydrocodo ne 10 mg-acetam inophen 325 mg tablet Take 1 tablet every 6 hours by oral route. active Not Available Not Available No t Available omeprazol e 40 mg capsule,d elayed release TAKE (1) CAPSULE BY MOUTH ONCE A DAY. active Not Available Not Available No t Available tramadol 50 mg tablet active Not Available Not Available Not Available ondansetr on 8 mg disintegr ating tablet DISSOLVE 1 TABLET BY MOUTH EVERY 8 HOURS IF NEEDED FOR NAUSEA OR VOMITING FOR UP TO 7 DAYS active Not Available Not Available No t Available bisoprolo l fumarate 5 mg tablet TAKE 1 TABLET BY MOUTH ONCE A DAY. active Not Available Not Available No t Available terbinafi ne HCl 250 mg tablet TAKE 1 TABLET BY MOUTH ONCE A DAY. active Not Available Not Available No t Available flaxseed oil 1,000 mg capsule Take 2 capsules every day by oral route. active Not Available Not Available No t Available Zanaflex 4 mg tablet Take 1 tablet every 6 hours by oral route. 2018 active Not Available Not Available Not Avai lable potassium chloride ER 20 mEq tablet,ex tended release(p art/cryst ) TAKE ONE TABLET BY MOUTH ONCE DAILY. active Not Available Not Available No t Available famotidin e 20 mg tablet TAKE 1 TABLET BY MOUTH ONCE A DAY. active Not Available Not Available No t Available triamcino lone acetonide 0.025 % topical cream APPLY TO AREA IN GROIN AND ON BUTTOCK TWICE DAILY FOR 2 WEEKS, STOP FOR 2 WEEKS THEN REPEAT CYCLE active Not Available Not Available No t Available tamsulosi n 0.4 mg capsule TAKE (1) CAPSULE BY MOUTH ONCE A DAY WITH DINNER active Not Available Not Available No t Available hydrocodo ne 7.5 mg-acetam inophen 325 mg tablet TAKE 1 TABLET BY MOUTH 3-4 TIMES A DAY active Not Available Not Available No t Available econazole nitrate 1 % topical cream APPLY TO GROIN AREA TWICE DAILY active Not Available Not Available No t Available cephalexi n 500 mg capsule TAKE 1 BY MOUTH FOUR TIMES DAILY active Not Available Not Available No t Available ranitidin e 150 mg tablet Take 1 tablet twice a day by oral route. active Not Available Not Available No t Available Effexor 75 mg tablet Two times a day 12/11 completed Duration : 10 days;Graeme quency: bid;Medi cation Descript ion: venlafax ine; Route:or al; refills: 0; Quantity :60 tablet Not Available Not Available Not Available diclofena c sodium 75 mg tablet,de layed release Two times a day 12/11 completed Frequenc y: bid;Medi cation Descript ion: diclofen ac; Dosage:1 ; Route:or al; refills: 5; Quantity :60 delayed release tablet Not Available Not Available Not Available bumetanid e 1 mg tablet TAKE ONE TABLET BY MOUTH DAILY. active Not Available Not Available No t Available levothyro xine 200 mcg tablet TAKE 1 TABLET BY MOUTH ONCE A DAY. active Not Available Not Available No t Available ergocalci ferol (vitamin D2) 1,250 mcg (50,000 unit) capsule active Not Available Not Available Not Available clobetaso l 0.05 % topical ointment APPLY TO HANDS AT BEDTIME. APPLY GLOVES OVER HANDS AFTER APPLICAT ION active Not Available Not Available No t Available ibuprofen 600 mg tablet active Not Available Not Available Not Available albuterol sulfate HFA 90 mcg/actua tion aerosol inhaler INHALE 1 PUFF FOUR TIMES DAILY NEEDED FOR SHORTNES S OF BREATH OR WHEEZING active Not Available Not Available No t Available oxybutyni n chloride 5 mg tablet active Not Available Not Available Not Available lisinopri l 40 mg tablet TAKE 1 TABLET BY MOUTH ONCE A DAY. active Not Available Not Available No t Available cefdinir 300 mg capsule TAKE (1) CAPSULE BY MOUTH TWICE DAILY. active Not Available Not Available No t Available fluticaso ne propionat e 50 mcg/actua tion nasal spray,anibal pension USE 2 SPRAYS IN EACH NOSTRIL ONCE A DAY. active Not Available Not Available No t Available metformin ER 500 mg tablet,ex tended release 24 hr TAKE 2 TABLETS BY MOUTH 2 TIMES DAILY. active Not Available Not Available No t Available loratadin e 10 mg tablet active Not Available Not Available Not Available diazepam 5 mg tablet TAKE (1) TABLET BY MOUTH TWICE A DAY. active Not Available Not Available No t Available Asprin Ec Low Dose 81 mg tablet,de layed release Take 1 tablet every day by oral route. active Not Available Not Available No t Available eplerenon e 25 mg tablet TAKE 1 TABLET BY MOUTH ONCE A DAY. active Not Available Not Available No t Available rosuvasta tin 20 mg tablet active Not Available Not Available Not Available Lyrica 200 mg capsule active Not Available Not Available Not Available Lyrica 225 mg capsule TAKE (1) CAPSULE BY MOUTH TWICE DAILY. active Not Available Not Available No t Available Lyrica 300 mg capsule TAKE (1) CAPSULE BY MOUTH TWICE DAILY. active Not Available Not Available No t Available meloxicam 12/11 completed Medicati on Descript ion: meloxica m; Route:or al; refills: 0 Not Available Not Available Not Available levothyro xine active Medicati on Descript ion: levothyr oxine; refills: 0 Not Available Not Available Not Available venlafaxi ne active Not Available Not Available Not Available Vitamin D3 active Not Available Not Available Not Available Lyrica As Directed 12/11 completed Instruct ions: handout provided to patient with titratio n instruct ions. Max 600mg/da y in three doses;Fr equency: as direct.; Medicati on Descript ion: pregabal in; Dosage:a s directed ; Route:or al; refills: 0 Not Available Not Available Not Available varenicli ne tartrate 1 mg tablet TAKE (1) TABLET BY MOUTH TWICE A DAY. active Not Available Not Available No t Available varenicli ne tartrate 0.5 mg tablet TAKE 1 TABLET BY MOUTH ONCE A DAY FOR 3 DAYS THEN 1 TABLET TWICE DAILY FOR 4 DAYS active Not Available Not Available No t Available fenofibra te nanocryst allized 145 mg tablet TAKE 1 TABLET BY MOUTH ONCE A DAY. active Not Available Not Available No t Available Voltaren 1 % topical gel Four times a day 12/11 completed Instruct ions: Apply 4 grams four times daily.;F requency : qid;Medi cation Descript ion: diclofen ac topical; Dosage:4 ; Route:to pical; refills: 2; Quantity :1 gel Not Available Not Available Not Available venlafaxi ne ER 225 mg tablet,ex tended release 24 hr TAKE 1 TABLET BY MOUTH ONCE A DAY. active Not Available Not Available No t Available Vitamin D2 active Not Available Not Available Not Available Farxiga 5 mg tablet active Not Available Not Available No t Available Jardiance 25 mg tablet TAKE 1 TABLET BY MOUTH ONCE A DAY. active Not Available Not Available No t Available True Metrix Glucose Test Strip USE TO TEST BLOOD GLUCOSE 2 TIMES DAILY. active Not Available Not Available No t Available True Metrix Glucose Meter USE TO CHECK BLOOD GLUCOSE DIRECTED . active Not Available Not Available No t Available Stiolto Respimat 2.5 mcg-2.5 mcg/actua tion solution for inhalatio n INHALE 2 PUFFS BY MOUTH ONCE DAILY active Not Available Not Available No t Available Tart Martin Extract 1,000 mg capsule Take 2 capsules every day by oral route. active Not Available Not Available No t Available OneTouch Delica Plus Lancet 33 gauge active Not Available Not Available Not Available Mounjaro 2.5 mg/0.5 mL subcutane ous pen injector INJECT 2.5 MG UNDER SKIN ONCE WEEKLY active Not Available Not Available No t Available Vitals Date Recorded Body height Provider Name an d Address Organization Details Last Updated DateTime 12/14/2020 175.26 cm [facility] 13:31:24 Date Recorded Body height Body mass index (BMI) Body weight Heart rate Systolic And Diastolic Provider Name and Address Organization Details Last Updated DateTime 12/26/2022 175.26 cm 38 kg/m2 740755.2 4 g 77 /min 116/61 mm[Hg] [facility] 12/26/2022 14:33:08 Date Recorded Body height Body mass index (BMI) Body weight Systolic And Diastolic Provider Name and Address Organization Details Last Updated DateTime 01/23/2023 175.26 cm 38 kg/m2 305999.24 g 122/72 mm[Hg] Caitlin Palmer [facility] 01/23/2023 10:02:09 Date Recorded Body height Body mass index (BMI) Body weight Heart rate Systolic And Diastolic Provider Name and Address Organization Details Last Updated DateTime 03/17/2021 175.26 cm 35.4 kg/m2 914670.1 7 g 85 /min 106/65 mm[Hg] [facility] 03/17/2021 14:30:35 Social History Question Answer Notes LastModified by Organizat ion Details LastModified Time Tobacco Smoking Status Current Every Day Smoker Guru Jaylinwilliam [facility] 12/11/2016 07:46:19 What Was The Date Of Your Most Recent Tobacco Screening? 07/10/2017 Information n ot available 12/09/2019 Sex: Unknown Functional Status None recorded. Mental Status None recorded. Family History Relationship Description Onset Age of this Age Resolved Age Notes LastModified by Organization Details LastModified Time Mother Arthritis [email or web address] Not availa ble 12/11/2016 07:54:42 Unspecified Relation Malignant neoplastic disease apurdie Not available 2019 08:55:42 Unspecified Relation Hypertensive disorder apurdie Not available 2019 08:55:47 Unspecified Relation Diabetes mellitus apurdie Not available 2019 08:55:52 Medical History Condition Response Diabetes Y Bleeding Disorder N Arthritis Y Emphysema N Acid Reflux (GERD) Y Asthma N COPD Y Sleep Apnea Y High Cholesterol Y Heart Disease N Rheumatoid Arthritis N Hypertension Y Past Encounters Encounter ID Performer Location Encounter Start Date Encounter Closed Date Diagnosis/Indication Diagnosis SNOMED-CT Code Diagnosis ICD10 Code Diagnosis IMO Codes Diagnosis Note [id number] [place] [address] [place] [phone] 12/11/2016 07:28:30 12/11/2016 08:44:29 Pain of multiple joints 15827931 M25.50 Chronic joint pains, for over 10 years.The clinical features are more supportive of Generalize d OA.He has had a positive RF screen but clinical exam favors more of an OA and I doubt RA screen which could very well be false positive.I will repeat the RF screen along with the anti CCP abs.Furthe r, he has chronic back pains along with limited mobility , at LS spine and hips, again from the DJD.Only symptomati c care , besides the weight loss and PT.He has diabetes and h/o CKD which limits the use of steroids and NSAIDS.I have obtained labs and xrays as stated below and plan to contact him with results.Of note , he is on Hydrocodon e at 7.5 mg qid for the Back pains. [id number] ESPINOZA CRUZ MD [facility] [address] [place] [address] 12/26/2016 14:41:40 12/26/2016 16:18:29 Undifferentiated inflammatory arthritis 856647260 M19.90 Negative RF and negative anti CCP abs.Modest elevation in ESR, and moderate elevation in CRP.Some erosive change sin the hands.I WANT TO START HIM WITH RELAFEN AT 750 MG , 2 PO QD FOR NOW AND SEE HOW HE DOES. HOLD OFF ON THE STEROIDS.I f he failed to help, will do trial of HCQ. [id number] ADDIE VELIZ MD NEUROSURG [facility] [address] [place] [address] 03/06/2017 08:40:50 03/06/2017 09:45:36 Lumbar spondylosis [id number] M47.231 [id number] ADDY FLORES PA-C [facility]OSUR[facility] CL[facility] [address] [place] [address] 04/18/2017 14:03:44 04/18/2017 16:04:23 Low back pain [id number] M54.5 [id number] ADDIE VELIZ MD [facility] [address] [place] [address] 05/10/2017 13:51:16 05/10/2017 14:20:50 Lumbar radiculopathy [id number] M54.16 [id number] ADDIE VELIZ MD NEUROSURG [facility] CL[facility] [address] [place] [address] 07/10/2017 13:13:59 07/10/2017 13:53:41 Lumbar spondylosis [id number] M47.801 [id number] ADDIE VELIZ MD NEUROSURG [facility] CL[facility] [address] [place] [address] 06/17/2019 13:34:04 06/24/2019 11:29:14 Lumbar spondylosis [id number] M47.565 [id number] ELADIO TANG PA-C NE[facility]OSUR[facility] [address] [place] [address] 07/08/2019 09:57:33 07/10/2019 15:42:32 Low back pain [id number] M54.5 59-year-ol d who is s/p a L5-S1 posterior lumbar interbody fusion on April 04, 2017 and has had about 2 months of bilateral back spasms which causes referred pain down the posterior aspect of the left leg to the knee and stops. He states he has about 40% better than when his symptoms started. He has had Medrol and Flexeril. His flexion extension and complete lumbar x-rays from 06/17/19 reviewed showing no evidence of loosening or breakdown of the hardware without any evidence of instabilit y. We will go ahead and call him in a different muscle relaxer. We will call him in Zanaflex 4 mg 1 tab to 6 hours as needed for spasm. He is to call if he doesn't think this is helping his back spasms as there are different muscle spasm medication s that we can call in. He knows to call should his symptoms not continue to improve.At that time, we will likely order a CT lumbar without contrast andMRI of the lumbar spine with and without contrast.H e will follow-up as needed. The patient was seen and examined by Dr. Veliz and myself. He agrees with the plan as stated above. [id number] ADDIE VELIZ MD NEUROSURG [facility] CLOSED [address] [place] [address] 08/10/2020 08:38:30 08/11/2020 20:49:02 Lumbar spondylosis [id number] M47.354 [id number] ADDIE VELIZ MD NEUROSURG [facility] CLOSED [address] [place] [address] 09/21/2020 13:31:27 09/23/2020 11:34:29 Lumbar spondylolisthesis [id number] M43.16 [id number] ADDIE VELIZ MD NEUROSURG [facility] CLOSED [address] [place] [address] 11/16/2020 14:59:09 11/19/2020 10:15:00 [id number] ADDIE VELIZ MD SURGERY SCHEDULE [address] [place] [address] 11/18/2020 09:49:55 11/23/2020 13:31:47 [id number] ADDIE VELIZ MD NEUROSURG [facility] [address] [place] [address] 12/14/2020 13:16:14 12/15/2020 11:06:46 Lumbar spondylosis [id number] M47.287 [id number] CIRO HERNANDEZ PA-C [facility]UR[facility] [address] [place] [address] 03/17/2021 13:35:21 03/18/2021 14:12:04 Lumbar spondylosis [id number] M47.896 [id number] CECELIA WELLS APRN NEUROSURG [facility] CL[facility] [address] [place] [address] 12/26/2022 13:54:52 12/28/2022 04:29:04 Lumbar radiculopathy [id number] M54.16 [id number] ADDIE VELIZ MD NEUROSURG [facility] [address] [place] [address] 01/23/2023 09:53:50 01/26/2023 13:00:16 Spinal stenosis of lumbar region [id number] M48.062 [id number] ADDIE VELIZ MD NEUROSURG [facility] CL[facility] [address] [place] [address] 10/09/2023 12:55:37 10/10/2023 05:26:07 Spinal stenosis of lumbar region [id number] M48.062 Health Concerns Section Related Observation LastModified by Organization Detai ls LastModified Time None Recorded Concern Status LastModified by Organization Details LastModified Time None Recorded Advance Directives Directive None Recorded Payers Insurance Date Sequence Insurance Name Policy Number Policy Laguerre Covered Member ID Laguerre Member ID Guarantor Name 12/31/2018 1 *SELF PAY* Ronny Silvestre 10/22/2023 1 [employer] (MEDICARE REPLACEMENT/A DVANTAGE - PPO) Fransisco Silvestre [id number] Fransisco Silvestre Notes Date Note Type Note Provider Name and Address Organization Details Recorded Time 12/14/2020 text/html I saw Mr. Silvestre. I performed an L3-5 posterior lumbar interbody fusion with removal of L5-S1 hardware October 29, 2020. Years ago I performed an L5-S1 fusion. He's doing well. His back is stiff but pain is better. He's not having any severe radicular leg pain. ADDIE VELIZ MD [address] [place] [address], [phone], [facility] 12/14/2020 13:52:51 03/17/2021 text/html ROS as noted in the HPI Mr. Silvestre is status post removal of previous L5-S1 hardware with extension of his fusion to L3 5 on 10/29/[address] Veliz. He reports good improvement in his left radicular leg pain. Overall he is happy with his progress since surgery. He does report some pain at the base of his posterior neck without radiation into his arms. CIRO HERNANDEZ PA-C [address] [place] [address], [phone], [facility] 03/17/2021 14:47:34 12/26/2022 text/html Mr. Silvestre returns to the office today accompanied by his with reports of back pain above the level of his incision that with walking will radiate down his lower extremities. He underwent an L5-S1 PLIF April 04, 2017 as well as an extension of his fusion to L3 with removal of the L5-S1 hardware on October 29, [address] Veliz. He was last seen in this office in February 2021. He reports that his pain is worse with walking or standing that he describes as sharp and stabbing. He reports that will radiate down the lateral aspects of both of his lower extremities occasionally all the way down to the ball of his feet. He reports that sitting can relieve some of the pain but he is unable to sit too long or he develops tailbone pain. He feels that he is unable to stand up straight secondary to the pain it causes in his back. He works with pain management per his report and takes hydrocodone/acetamino phen 7.5/325 as well as Lyrica for his pain. He denies any bowel or bladder control loss but does report frequent urination. They report that he has been on disability for several years however his disability has been reviewed and was denied; they have received a letter that they understand the denial to be secondary to not having an evaluation by our office. They are concerned as they need to have all of this resubmitted by February 05 of this year for reconsideration of his disability. He has no new imaging for review. He does have a medical history of high blood pressure, type 2 diabetes, thyroid disease, arthritis, hyperlipidemia, sleep apnea, and COPD. CECELIA WELLS, DAVID [address] [place], [phone], [facility] 12/27/2022 08:35:34 01/23/2023 text/html Mr. Silvestre was recently seen by nurse practitioner Shaheen on December 26, 2022.In October 2020 I performed an L3-5 posterior lumbar interbody fusion And removed L5-S1 hardware. In March 2017 I performed an L5-S1 posterior lumbar interbody fusion.He did better after each surgery. He came back and saw us recently is having recurrent severe back pain that radiates down to the lower extremities bilaterally. He has pain in the front and the back of the legs. Anytime he is upright and active his symptoms are much worse. He does get relief when he sits down or lies down.He has undergone injections by Dr. Wiley. He is done physical therapy. He is done all of these things over the years. Nothing is given him complete relief.His symptoms are markedly worse especially in the last months. This is why came back in to see us. He also states that he had been declared Disabled for 7 or 8 years. This was recently denied because he had not seen me for a while. ADDIE VELIZ MD [address] [place], [phone], [facility] 01/23/2023 11:20:07 10/09/2023 text/html Status post L5-S1 posterior lumbar interbody fusion in 2016 and L3-5 posterior lumbar interbody fusion in 2020. I performed her surgeries. He got better after each 1. I saw him back in January of this year with anterior and posterior lower extremity pain to the feet. He had stenosis at L2-3. I recommended extending the fusion up to this. However, he was diagnosed with bladder cancer. He underwent cystoscopy For resection of from cancer areas and underwent intravesicular chemotherapy. He had 4 treatments and the last was in September. He comes back to schedule surgery. He continues to have low back pain that radiates down the anterior and posterior aspect of the lower extremities to the feet.Prior to scheduling surgery had him undergo another round of therapy and had injections but his symptoms persisted. He is failed conservative treatment.Getting a bladder scan on November [address] Samira Garcia urologist at [facility]. ADDIE VELIZ MD [address] [place] [address], [phone], [facility] 10/09/2023 13:36:04
--- OUTSIDE RECORDS SUMMARY | 2025-08-07 15:21 | XMS_ITS | Encounter Summary ---
Author Organization [employer] ([place], [place], [place], [place]) Address [address] [place] [address] Care Team Providers Care Hackler Doll Wigs Name Role Phone Unavailable Primary Care Provider Unavailabl e Encounter Details Date Type Department Care Team (Late st Contact Info) Description 10/31/2020 Transcribed Document [facility] [place] [facility] [place] [address] ProviderFarhan MD [address] [place] [address] Social History Tobacco Use Types [...] - Historical ProviderMD - 10/31/2020 2:36 PM FILM PROCESSING SUPERVISOR Nursing Discharge Summary Entered On: 10/31/2020 14:37 [...] - 10/31/2020 14:36 EST Electronically signed by [facility], [facility] Conversion Labelling Machine Operator Cerner at 02/08/2023 12:18 PM CDT documented in this encounter Plan of Treatment Not on file documented as of this encounter Visit Diagnoses Not on filedocumented in this encounter
--- OUTSIDE RECORDS SUMMARY | 2025-08-07 15:21 | XMS_ITS | Encounter Summary ---
Author Organization [employer] ([place], [place], [place], [place]) Address [address] [place] [address] Care Team Providers Care Airplane Charter Clerk Name Role Phone Unavailable Primary Care Provider Unavailabl e Encounter Details Date Type Department Care Team (Late st Contact Info) Description 10/30/2020 Transcribed Document [facility] [place] [address] [place] [address] ProviderFarhan MD [address] [place] [address] Social History Tobacco Use Types [...] - Farhan ProviderMD - 10/30/2020 6:00 AM REGISTERED ART THERAPIST Pain Assessment Entered On: 10/30/2020 20:01 EST [...]
--- OUTSIDE RECORDS SUMMARY | 2025-08-07 15:21 | XMS_ITS | Encounter Summary ---
Author Organization [employer] ([place], [place], [place], [place]) Address [address] [place] [address] Care Team Providers Care Pest Control Operator Name Role Phone Unavailable Primary Care Provider Unavailabl e Encounter Details Date Type Department Care Team (Late st Contact Info) Description 10/31/2020 Transcribed Document [facility] [place] [address] [place] [address] ProviderFarhan MD [address] [place], [place] [id number] Social History Tobacco Use Types Packs/Day Years [...] - Historical ProviderMD - 10/31/2020 2:36 PM COMPENSATION ADMINISTRATOR Stroke/Warfarin Instructions Entered On: 10/31/2020 14:36 EST [...]
--- OUTSIDE RECORDS SUMMARY | 2025-08-07 15:21 | XMS_ITS | Encounter Summary ---
Author Organization [employer] ([place], [place], [place], [place]) Address [address] [place] [address] Care Team Providers Care Smoke Jumper Name Role Phone Unavailable Primary Care Provider Unavailabl e Encounter Details Date Type Department Care Team (Late st Contact Info) Description 10/30/2020 Transcribed Document [facility] Radiology [address] [place] [address] Mary Beth Orr MD [address] [address] Social History Tobacco Use Types [...] is a 60 [address] to [facility] per Dr. Green for an L3-5 PLIF. [...] 100 mg intravenous injection 1 Infusion, IntraVENous, M3Ejdpz Jardiance 25 mg oral tablet 25 mg [...]
--- OUTSIDE RECORDS SUMMARY | 2025-08-07 15:21 | XMS_ITS | Encounter Summary ---
Author Organization [employer] ([place], [place], [place], [place]) Address [address] [place] [address] Care Team Providers Care Delivery Consultant Name Role Phone Unavailable Primary Care Provider Unavailabl e Encounter Details Date Type Department Care Team (Late st Contact Info) Description 10/31/2020 Transcribed Document [facility] [place] [address] [place] [address] ProviderFarhan MD [address] [place] [address] Social History Tobacco Use Types [...] - Farhan ProviderMD - 10/31/2020 2:40 PM RUST [place] [address] FRANSISCO CRAVEN :1960 Visit Time:10/29/2020 Your [...] When Within 2 weeks Nirali hylton Where: [address] [place] [address] [place] [phone] Verivue (1) Medications What How Much When Instructions [...] these instructions at home: Medicines ??? Take wwpg-lyy-klklrcj and prescription medicines only as told by [...] cannot use soap and water, use hand private inquiry agent. ? Change your bandage as told by [...] your pee (urine) pale yellow. ? Take fotq-dmc-nprwpyq or prescription medicines. ? Eat foods that [...] 02/01/2012 Document Revised: 01/29/2020 Document Reviewed: 01/22/2018 [employer] Patient Education ?? 2020 [employer]. acetaminophen and hydrocodone (a SEET a MIN oh fen and michael droe KOE done) Hycet, Lorcet, Bridgman, Verdrocet, Vicodin, Xodol, Zamicet What is the [...] may report side effects to FDA at 8-580-QQL-5215. What other drugs will affect acetaminophen and [...] affect acetaminophen and hydrocodone, including prescription and xwoc-xmf-mowqgdf medicines, vitamins, and herbal products. Not all [...] to ensure that the information provided by [employer]. ('[employer]') is accurate, up-to-date, and complete, but no guarantee is made to that effect. Drug information contained herein may be time sensitive. [employer] information has been compiled for use by healthcare practitioners and consumers in the [place] and therefore [employer] does not warrant that uses outside of the [place] are appropriate, unless specifically indicated otherwise. [employer] drug information does not endorse drugs, diagnose patients or recommend therapy. [employer] drug information is an informational resource designed [...] effective or appropriate for any given patient. [facility] does not assume any responsibility for any aspect of healthcare administered with the aid of information [facility] provides. The information contained herein is not intended to cover all possible uses, directions, precautions, warnings, drug interactions, allergic reactions, or adverse effects. If you have questions about the drugs you are taking, check with your doctor, nurse or pharmacist. Copyright 8557-8956 [facility] [place]. Version: 16.01. Revision Date: 11/12/2019. Emergency Awareness [...] Assistance with quitting is available by contacting 9-530-AABO-NOW. This is a free resource providing counseling, [...] range between ( 0.0 and 7.0 ) Potter #: 1.07 K/uL -- Normal range between ( 0.16 and 1.00 ) Eos #: 0.03 x10(3)/uL -- Normal range between ( 0.00 and 0.80 ) Potter %: 7.3 % -- Normal range between [...] ) Urine Bilirubin Dipstick: Negative Urine Specific [place]: *1.028 -- Normal range between ( 1.005 [...] was given the opportunity to ask questions. Patient/Cna Per Diem Name: Patient/Cna Per Diem Signature: Relationship to Patient: Clinician/Hospital Cna Per Diem Signature: Date: documented in this encounter Plan of Treatment Not on file documented as of this encounter Visit Diagnoses Not on filedocumented in this encounter
--- OUTSIDE RECORDS SUMMARY | 2025-08-07 15:21 | XMS_ITS | Encounter Summary ---
Author Organization [employer] ([place], [place], [place], [place]) Address [address] [place] [address] Care Team Providers Care Animal Sticker Name Role Phone Unavailable Primary Care Provider Unavailabl e Encounter Details Date Type Department Care Team (Late st Contact Info) Description 10/30/2020 Transcribed Document [facility] [place] [facility] [place] [address] ProviderFarhan MD [address] [place] [address] Social History Tobacco Use Types [...] - Historical ProviderMD - 10/30/2020 10:51 AM SUPERVISING FIRE MARSHAL UM Authorization Entered On: 10/30/2020 10:51 EST Performed On: 10/30/2020 10:51 EST by Ca Amaya Rn-Utilization Review Primary Insurance Authorization Authorization and Policy Numbers : Insurance 1 Health Plan: [employer] CHOICE PPO Policy Number: [id number] Authorization Number: Insurance Primary Name : [employer] Choice [id number] Authorization Status-Primary : Pending Auth/Referral Contact Name-Primary : Alfredo Casas Reference Number-Primary : [id number] Authorization Number-Primary : Pending Authorized Service Begin [...] or availity as of yet (DERICK SHIPMAN, Reprographics Associate 10/28/2020 12:39) Ca Amaya, Rn-Utilization Review - 10/30/2020 10:51 EST Electronically signed by Kailey, [facility] Conversion Vice President Of Brand Management Cerner at 02/08/2023 12:23 PM CDT documented in this encounter Plan of Treatment Not on file documented as of this encounter Visit Diagnoses Not on filedocumented in this encounter
--- OUTSIDE RECORDS SUMMARY | 2025-08-07 15:21 | XMS_ITS | Encounter Summary ---
Author Organization [employer] ([place], [place], [place], [place]) Address [address] [place] [address] Care Team Providers Care Valance Cutter Name Role Phone Unavailable Primary Care Provider Unavailabl e Encounter Details Date Type Department Care Team (Late st Contact Info) Description 10/29/2020 Transcribed Document [facility] [place] [facility] [place] [address] ProviderFarhan MD [address] [place] [address] Social History Tobacco Use Types [...] - Historical ProviderMD - 10/29/2020 10:34 AM GEOGRAPHIC INFORMATION SYSTEMS DIRECTOR Evaluation, Occupational Therapy Entered On: 10/29/2020 15:00 [...] CONNOR WALTON OTR/Desiree - 10/29/2020 14:54 EST Counselor Camp Goals, OT Bathing LTG Grid Goal #1 [...] CONNOR WALTON OTR/L - 10/29/2020 14:54 EST documented in this encounter Plan of Treatment Not on file documented as of this encounter Visit Diagnoses Not on filedocumented in this encounter
--- OUTSIDE RECORDS SUMMARY | 2025-08-07 15:21 | XMS_ITS | Encounter Summary ---
Author Organization [employer] ([place], [place], [place], [place]) Address [address] [place] [address] Care Team Providers Care Laser Beam Trim Operator Name Role Phone Unavailable Primary Care Provider Unavailabl e Encounter Details Date Type Department Care Team (Late st Contact Info) Description 10/29/2020 Transcribed Document [facility] [address] [facility] [address] [place] [address] Addie Veliz Jr., MD [address] [place] [address] [address] [place] [address] Social History Tobacco Use Types [...]
--- OUTSIDE RECORDS SUMMARY | 2025-08-07 15:21 | XMS_ITS | Encounter Summary ---
Author Organization [employer] ([place], [place], [place], [place]) Address [address] [place] [address] Care Team Providers Care Assisted Living Administrator Name Role Phone Unavailable Primary Care Provider Unavailbrianna e Encounter Details Date Type Department Care Team (Late st Contact Info) Description 10/31/2020 Transcribed Document [facility] [place] [facility] [place] [address] ProviderFarhan MD [address] [place] [address] Social History Tobacco Use Types [...] - Historical ProviderMD - 10/31/2020 2:00 AM SCIENTIFIC AIDE Pain Assessment Entered On: 10/31/2020 6:55 EST [...]
--- OUTSIDE RECORDS SUMMARY | 2025-08-07 15:21 | XMS_ITS | Encounter Summary ---
Author Organization [employer] ([place], [place], [place], [place]) Address [address] [place] [address] Care Team Providers Care Nurse Ldr Name Role Phone Unavailable Primary Care Provider Unavailabl e Encounter Details Date Type Department Care Team (Late st Contact Info) Description 10/30/2020 Transcribed Document [facility] [place] [address] [place] [address] ProviderFarhan MD [address] [place], [place] [phone] Social History Tobacco Use Types Packs/Day Years [...] - Historical ProviderMD - 10/30/2020 2:00 AM SEAMAN Accountancy Professor Details Entered On: 10/30/2020 1:24 EST Performed [...] 10/30/2020 1:24 EST Electronically signed by Kailey [facility] Conversion [employer] Workflow Consultant Cerner at 02/08/2023 12:39 PM CDT documented in this encounter Plan of Treatment Not on file documented as of this encounter Visit Diagnoses Not on filedocumented in this encounter
--- OUTSIDE RECORDS SUMMARY | 2025-08-07 15:21 | XMS_ITS | Encounter Summary ---
Author Organization [employer] ([place], [place], [place], [place]) Address [address] [place] [address] Care Team Providers Care Electrician Station Assistant Name Role Phone Unavailable Primary Care Provider Unavailbrianna e Encounter Details Date Type Department Care Team (Late st Contact Info) Description 10/31/2020 Transcribed Document [facility] [place] [facility] [place] [address] ProviderFarhan MD [address] [place] [address] Social History Tobacco Use Types [...] - Historical ProviderMD - 10/31/2020 6:00 AM INCOME TAX CONSULTANT Pain Assessment Entered On: 10/31/2020 6:55 EST [...]
--- OUTSIDE RECORDS SUMMARY | 2025-08-07 15:21 | XMS_ITS | Encounter Summary ---
Author Organization [employer] ([place], [place], [place], [place]) Address [address] [place] [address] Care Team Providers Care Partnership Manager Name Role Phone Unavailable Primary Care Provider Unavailabl e Encounter Details Date Type Department Care Team (Late st Contact Info) Description 10/30/2020 Transcribed Document [facility] [place] [address] [place] [address] ProviderFarhan MD [address] [place] [address] Social History Tobacco Use Types [...] - Farhan ProviderMD - 10/30/2020 10:00 AM ADULT NEUROLOGIST Pain Assessment Entered On: 10/30/2020 20:02 EST [...]
--- OUTSIDE RECORDS SUMMARY | 2025-08-07 15:21 | XMS_ITS | Patient Health Record ---
Author Organization [facility] Address [address] [id number] Care Team Providers Care Ror Engineer Name Role Phone Republic -Phlebotomy Services Technician David DUKE Unavailable Unavailable Allergies Allergen (clinical [...] W/U Status Risk Notes Problem Rheumatoid arthritis (68111159) Rheumatoid arthritis, unspecified (M06.9) Active confirmed Problem Osteoarthritis (273232994) Unspecified osteoarthritis, unspecified site (M19.90) Active confirmed Problem Solitary sacroiliitis (633479551) Sacroiliitis, not elsewhere classified (M46.1) Active confirmed Problem Lumbosacral spondylosis without myelopathy (75924006) Spondylosis without myelopathy or radiculopathy, lumbar region (M47.816) Active confirmed Problem Lumbar radiculopathy (545322961) Radiculopathy, lumbar region (M54.16) Active confirmed Problem Enthesopathy of hip region (34824645) Trochanteric bursitis, unspecified hip (M70.60) Active confirmed Problem Long-term current use of drug therapy (324012847) Other fpc (current) drug therapy (Z79.899) Active confirmed Plan Of Treatment Pending Test Test Name Order Date Urine Test LCMS Definitive 11/02/2023 Insurance Providers Payer Name Payer Address Payer Phone Subscriber Number Group Number Insured Name Patient Relationship to Insured Coverage Start Date Coverage End Date [employer] Medicare HMO [id number] [address] [address] [place] [address] [id number] Noe Silvestre Self - patient is the [...] by unknown Surgical History Surgery Date(Month/Year) appendectomy/ [facility] [place] /unknow n 09/1997 carpal tunnel release [facility] /unknown 1990s right index finger/ [facility] unk nown right elbow/ [facility] /unknown unknown kidney/ [facility] (OP) 2016 lumbar spine fusion/ [facility]/ Dr. Green 3 day stay 03/2014, shoulder/ Bicep/ Dr. Wu/ [facility] 01/2016 [facility] 10/2022 Lumbar spine [facility] 3 days stay 20 21 Hospitalization History Reason Date(Month/Year)
--- OUTSIDE RECORDS SUMMARY | 2025-08-07 15:21 | XMS_ITS | Encounter Summary ---
Author Organization [employer] ([place], [place], [place], [place]) Address [address] [place] [address] Care Team Providers Care Assembler Steam And Gas Turbine Name Role Phone Unavailable Primary Care Provider Unavailabl e Encounter Details Date Type Department Care Team (Late st Contact Info) Description 10/30/2020 Transcribed Document [facility] [place] [facility] [place] [address] ProviderFarhan MD [address] [place] [address] Social History Tobacco Use Types [...] - Historical ProviderMD - 10/30/2020 10:50 AM FIBERGLASS INSULATION INSTALLER UM Authorization Entered On: 10/30/2020 10:51 EST Performed On: 10/30/2020 10:50 EST by Ca Amaya Rn-Utilization Review Primary Insurance Authorization Authorization and Policy Numbers : Insurance 1 Health Plan: [employer] CHOICE PPO Policy Number: [id number] Authorization Number: Insurance Primary Name : [employer] Choice [id number] Authorization Status-Primary : Pending Auth/Referral Contact Name-Primary : Alfredo Casas Reference Number-Primary : [id number] Authorization Number-Primary : Pending Authorized Service Begin [...] or availity as of yet (DERICK SHIPMAN, Senior Marketing Analyst 10/28/2020 12:39) Ca Amaya, Rn-Utilization Review - 10/30/2020 10:50 EST Electronically signed by Kailey, [facility] Conversion Tobacco Drummer Cerner at 02/08/2023 12:12 PM CDT documented in this encounter Plan of Treatment Not on file documented as of this encounter Visit Diagnoses Not on filedocumented in this encounter
--- OUTSIDE RECORDS SUMMARY | 2025-08-07 15:21 | XMS_ITS | Encounter Summary ---
Author Organization [employer] ([place], [place], [place], [place]) Address [address] [place] [address] Care Team Providers Care Canoe Builder Name Role Phone Unavailable Primary Care Provider Unavailabl e Encounter Details Date Type Department Care Team (Late st Contact Info) Description 10/30/2020 Transcribed Document [facility] [place] Family Medicine [facility] [place] [address] ProviderFarhan MD [address] [place] [address] Social History Tobacco Use Types [...] - Farhan ProviderMD - 10/30/2020 2:00 PM CLASS C TRUCK DRIVER Pain Assessment Entered On: 10/30/2020 20:02 EST [...]
--- OUTSIDE RECORDS SUMMARY | 2025-08-07 15:21 | XMS_ITS | Encounter Summary ---
Author Organization [employer] ([place], [place], [place], [place]) Address [address] [place] [address] Care Team Providers Care Senior Government Program Analyst Name Role Phone Unavailable Primary Care Provider Unavailabl e Encounter Details Date Type Department Care Team (Late st Contact Info) Description 10/30/2020 Transcribed Document [facility] [place] [address] [place] [address] ProviderFarhan MD [address] [place] [address] Social History Tobacco Use Types [...] - Historical ProviderMD - 10/30/2020 10:45 AM SUPERINTENDENT WATER AND SEWER SYSTEMS UM Authorization Entered On: 10/30/2020 10:45 EST Performed On: 10/30/2020 10:45 EST by Ca Aamya Rn-Utilization Review Primary Insurance Authorization Authorization and Policy Numbers : Insurance 1 Health Plan: [employer] CHOICE PPO Policy Number: [id number] Authorization Number: Insurance Primary Name : [employer] Choice [id number] Auth/Referral Contact Name-Primary : Alfredo Casas Authorization [...] or availity as of yet (DERICK SHIPMAN, Gold Buyer 10/28/2020 12:39) Ca Amaya, Rn-Utilization Review - 10/30/2020 10:45 EST Electronically signed by [facility], [facility] Conversion Head Of Partner Development Cerner at 02/08/2023 12:31 PM CDT documented in this encounter Plan of Treatment Not on file documented as of this encounter Visit Diagnoses Not on filedocumented in this encounter
--- OUTSIDE RECORDS SUMMARY | 2025-08-07 15:21 | XMS_ITS | Encounter Summary ---
Author Organization [employer] ([place], [place], [place], [place]) Address [address] [place] [address] Care Team Providers Care Hydraulic Jack Mechanic Name Role Phone Unavailable Primary Care Provider Unavailabl e Encounter Details Date Type Department Care Team (Late st Contact Info) Description 10/30/2020 Transcribed Document [facility] [address] [facility] [address] [place] [address] [place] [address] [place] [address] [address] [place] [address] Social History Tobacco Use Types [...] JESUS drain output for 20 and 24 [id number] overnight No major complaints. He has postop [...] tomorrow and go home tomorrow. He requests Linwood instead of Percocet when he goes home. I put a Linwood prescription on his chart. I talked to his . They're both happy with the plan. documented in this encounter Plan of Treatment Not on file documented as of this encounter Visit Diagnoses Not on filedocumented in this encounter
--- OUTSIDE RECORDS SUMMARY | 2025-08-07 15:21 | XMS_ITS | Encounter Summary ---
Author Organization [employer] ([place], [place], [place], [place]) Address [address] [place] [address] Care Team Providers Care Supervisor Jewelry Department Name Role Phone Unavailable Primary Care Provider Unavailabl e Encounter Details Date Type Department Care Team (Late st Contact Info) Description 10/30/2020 Transcribed Document [facility] [place] Medicine [address] [place] [address] ProviderFarhan MD [address] [place] [address] Social History Tobacco Use [...] - Historical ProviderMD - 10/30/2020 10:50 AM SIGNAL INSPECTOR UM Authorization Entered On: 10/30/2020 10:50 EST Performed On: 10/30/2020 10:50 EST by Ca Amaya Rn-Utilization Review Primary Insurance Authorization Authorization and Policy Numbers : Insurance 1 Health Plan: [employer] CHOICE PPO Policy Number: [id number] Authorization Number: Insurance Primary Name : [employer] Choice [id number] Authorization Status-Primary : Pending Auth/Referral Contact Name-Primary : Alfredo Casas Reference Number-Primary : [id number] Authorization Number-Primary : Pending, No Notes in [...] or availity as of yet (DERICK SHIPMAN, Fairground Operator 10/28/2020 12:39) Ca Amaya, Rn-Utilization Review - 10/30/2020 10:50 EST Electronically signed by Kailey [facility] Conversion Fisher Gill Net Cerner at 02/08/2023 12:35 PM CDT documented in this encounter Plan of Treatment Not on file documented as of this encounter Visit Diagnoses Not on filedocumented in this encounter
--- OUTSIDE RECORDS SUMMARY | 2025-08-07 15:21 | XMS_ITS | Encounter Summary ---
Author Organization [employer] ([place], [place], [place], [place]) Address [address] [place] [address] Care Team Providers Care Auto Club Travel Counselor Name Role Phone Unavailable Primary Care Provider Unavailabl e Encounter Details Date Type Department Care Team (Late st Contact Info) Description 10/30/2020 Transcribed Document [facility] [place] Family Medicine [address] [place] [address] ProviderFarhan MD [address] [place] [address] Social History Tobacco Use Types [...] - Historical ProviderMD - 10/30/2020 5:00 AM HOSEMAN Chart Check - Review Order Profile Entered On: 10/30/2020 5:11 EST Performed On: 10/30/2020 5:00 EST by Sam Anton, RN Chart Check Powerplans Initiated/Discontinued as Appropriate : Yes All Active Orders Reviewed : Yes Sam Anton RN - 10/30/2020 5:11 EST Electronically signed by Kailey [facility] Conversion Stem Dryer Maintainer Mario at 02/08/2023 12:44 PM CDT documented in this encounter Plan of Treatment Not on file documented as of this encounter Visit Diagnoses Not on filedocumented in this encounter
--- OUTSIDE RECORDS SUMMARY | 2025-08-07 15:21 | XMS_ITS | Encounter Summary ---
Author Organization [employer] ([place], [place], [place], [place]) Address [address] [place] [address] Care Team Providers Care Marketing Systems Analyst Name Role Phone Unavailable Primary Care Provider Unavailabl e Encounter Details Date Type Department Care Team (Late st Contact Info) Description 10/29/2020 Transcribed Document [facility] Neurology - [address] [facility] [address] [place] [address] Waylon Green Jr., MD [address] [facility] [address] [place] [address] Social History Tobacco Use Types [...] Airo intraoperative CT scan and [employer] neuronavigation. OUTSIDE PHYSICAL DAMAGE APPRAISER: Enriqueta Carrillo PA-C. ANESTHESIA: General endotracheal anesthesia. [...] These were Steinmann pins, placed with a Hearsay.it drill under navigation. We used a pre-existing [...] stab incision was used to tunnel a 15-Belarusian round epidural JESUS drain. A drain stitch [...] hardware, placement of new hardware, wound closure. /[id number] Waylon Green Jr, MD RDO/AQ / RDO / MODL /[id number] documented in this encounter Plan of Treatment Not on file documented as of this encounter Visit Diagnoses Not on filedocumented in this encounter
[2025-08-07 15:59] LABS: Hematocrit 38.3 % (42.0-52.0); Hemoglobin 12.7 g/dL (14.1-18.0); Immature Granulocytes % 0.4 %; Mean Corpuscular HGB Conc 33.2 g/dL (31.8-35.4); Mean Corpuscular Hemoglobin 31.2 pg (27.0-31.2); Mean Corpuscular Volume 94.1 fl (80-94); Nucleated Red Blood Cells % 0 %; Platelet Count 170 K/mm3 (142-424); Red Blood Count 4.07 M/mm3 (4.60-6.20); Red Cell Distribution Width-SD 48.0 fL; White Blood Count 9.7 K/mm3 (4.8-10.8)
[2025-08-07 16:30] LABS: Chloride 102 mmol/L (98-107); Potassium 4.2 mmoL/L (3.5-5.1); Sodium 137 mmol/L (136-145)
[2025-08-07 16:33] LABS: Anion Gap 12.2 mEq/L (5-15); Blood Urea Nitrogen 18 mg/dl (9-20); Carbon Dioxide 27 mmol/L (22.0-30.0); Creatinine,Serum 1.10 mg/dl (0.66-1.25); Estimated Glomerular Filt Rate 68 ml/min (>60); GFR (African American) 82 ML/MIN (>60)
[2025-08-07 16:34] LABS: Calcium 8.6 mg/dl (8.4-10.2); Glucose 96 mg/dl (74-100)
== END 2025-08-07 23:59 | disposition home or self-care (01) ==
LOC: LAB 15:17
PROVIDERS: PCP Nurse Practitioner Family; Visit Provider Internal Medicine
DX: I25.10 Atherosclerotic heart disease of native coronary artery without angina pectoris (principal)
CPT/HCPCS: 36415; 80048; 85025

== ENCOUNTER 2025-08-17 15:44 | Outpatient (CLI) | payer MEDICARE, SELFPAY ==
--- OUTSIDE RECORDS SUMMARY | 2025-06-23 07:57 | XMS_ITS | Encounter Summary ---
Author Organization [facility] Address [address] [place] [address] Care Team Providers Care Target Aircraft Controller Name Role Phone Ministerio Rosas MD Unavailable [phone] Khadijah Dolan APRN Primary Care Provider [phone] Reason for Referral * Imaging (Routine) - Closed Specialty Diagnoses / Procedures Referred By Loki tyler Referred To Contact Radiology Diagnoses Urothelial carcinoma of bladder without invasion of muscle Procedures CT Urogram Ministerio Rosas MD [address] [address] Phone: tel: fax: Referral ID Status Reason Start Date Expiration Date Visits Re quested Visits Authorized [id number] Closed 06/02/2025 12/02/2026 1 1 Reason for Visit * Imaging (Routine) - Closed Specialty Diagnoses / Procedures Referred By Loki tyler Referred To Contact Radiology Diagnoses Urothelial carcinoma of bladder without invasion of muscle Procedures CT Urogram Ministerio Rosas MD [address] [address] Phone: tel: fax: Referral ID Status Reason Start Date Expiration Date Visits Re quested Visits Authorized [id number] Closed 06/02/2025 12/02/2026 1 1 Encounter Details Date Type Department Care Team (Latest Contact Info) Description 06/23/2025 7:57 AM EDT - 06/23/2025 11:59 PM EDT Hospital Encounter [facility] [address] [place] [address] Urothelial carcinoma of bladder without invasion of [...] Date Recorded Patient Health Questionnaire-2 Score 0 06/23/2025 PHQ-9 Answer Date Recorded Patient Health Questionnaire-9 [...] as of this encounter Functional Status * Over the past 2 weeks, how often have you been bothered by any of the following problems? Question Answer Date of Assessment Author Little interest or pleasure in doing things Not at all 06/23/2025 10:02 AM EDT Matthias Leggett Feeling down, depressed, or hopeless Not at all 06/23/2025 10:02 AM EDT Matthias Leggett Patient Health Questionnaire -2 Score 0 06/23/2025 10:02 AM Matthias Rod documented as of this encounter Medications at Time of Discharge aspirin 81 MG chewable tablet Chew 1 [...] day. Only takes it once a day Continuous Blood Gluc Assistant Professor [employer] Music (FreeStyle Noemi 3 [place]) device 02/01/2024 Continuous Blood Gluc Sensor (FreeStyle Noemi 3 Sensor) misc 02/01/2024 DULoxetine (Cymbalta) [address] capsule TAKE ONE (1) CAPSULE EVERY DAY BY ORAL ROUTE. 08/26/2024 Embecta Pen Needle Ultrafine 31G X 5 MM misc USE DIRECTED PER MD 05/13/2025 ergocalciferol (Vitamin D-2) 1.25 MG (62278 UT) capsule famotidine (Pepcid) 20 MG tablet Take 1 tablet (20 mg) by mouth 1 (one) time each day. fluticasone (Flonase) 50 MCG/ACT nasal spray Administer 2 sprays into each nostril 1 (one) time each day. 03/27/2023 insulin pen needle 31G X 8 mm misc use as directed 02/10/2025 Lantus SoloStar 100 UNIT/ML injection pen INJECT FIVE (5) UNITS EVERY DAY BY SUBCUTANEOUS ROUTE AT BEDTIME.PEN EXPIRES IN 28 DAYS 07/28/2024 levothyroxine (Synthroid, Levoxyl) 200 MCG tablet Take 1 tablet (200 mcg) by mouth 1 (one) time each day. metFORMIN XR (Glucophage-XR) 500 MG 24 hr tablet Take 2 tablets (1,000 mg) by mouth 2 (two) times a day. 05/01/2023 Mounjaro 2.5 MG/0.5ML solution auto-injector solution pen-injector INJECT 2.5 MG UNDER SKIN ONCE WEEKLY mupirocin (Bactroban) 2 % ointment APPLY TO AFFECTED AREA A SMALL AMOUNT THREE (3) TIMES DAILY 05/25/2025 nicotine (Nicoderm CQ) 21 MG/24HR patch APPLY ONE (1) PATCH EVERY DAY BY TRANSDERMAL ROUTE. nitroglycerin (Nitrostat) 0.4 MG SL tablet DISSOLVE ONE TABLET ON TONGUE NEEDED FOR CHEST PAIN. MAY REPEAT EVERY 5 MINS X 3 DOSES. NO RELIEF, CALL MD OR CALL 911 omeprazole (PriLOSEC) [address] capsule Take 1 capsule (40 mg) by mouth every night. 04/26/2023 pregabalin (Lyrica) 150 MG capsule take one (1) capsule by mouth twice a day 07/29/2024 pregabalin (Lyrica) 300 MG capsule take 1 capsule by mouth twice daily for 30 days 07/10/2024 Prodigy No Coding Blood Gluc test strip TEST BLOOD SUGAR THREE (3) TIMES DAILY 02/05/2025 TRUEplus Lancets 33G misc USE DIRECTED PER MD OFFICE 02/05/2025 tamsulosin (Flomax) 0.4 MG 24 hr capsule TAKE 1 CAPSULE BY MOUTH EVERY DAY WITH DINNER 30 capsule 11 08/27/2024 documented as of this encounter Miscellaneous Notes * Monet Polo - 06/23/2025 7:59 AM EDT Images from the original note were [...] Care Team (Late st Contact Info) Description 12/22/2025 8:40 AM EST Appointment [facility] [address] [place] [address] 12/22/2025 10:30 AM EST Office Visit [facility] [address], [address] [place] [phone] Ministerio Rosas MD [address] [place] [address] documented as of this encounter Procedures Procedure Name Priority Date/Time Associated Diagnosis Comments CT UROGRAM Routine 06/23/2025 8:30 AM EDT Urothelial carcinoma of bladder without invasion of muscle documented in this encounter Results * CT Urogram (06/23/2025 8:30 AM EDT) Anatomical Region Laterality Modality Abdomen, Pelvis Computed Tomogra phy Impressions 06/23/2025 9:15 AM EDT Unchanged enlarged left para-aortic lymph node. Recommend continued attention on follow-up. No enlarging abdominopelvic lymph nodes. Reduced conspicuity of the presumed focal papillary necrosis at the left interpolar region. CRITICAL RESULT: No. COMMUNICATION: Per this written report. Drafted by Pam Jefferson MD on 06/23/2025 9:04 AM Final report signed by Pam Jefferson MD on 06/23/2025 9:15 AM Narrative 06/23/2025 9:15 AM EDT CLINICAL INDICATION: hx of bladder cancer, enlarged lymph node on prior scan TECHNIQUE: Multiple pre-contrast axial CT images were obtained from lower chest through pubic symphysis, followed by multiple axial CT images of abdomen and pelvis following split bolus administration of IV contrast, Omnipaque 300, 150 mL. Reformatted images in the coronal and sagittal planes were generated from the axial data set to facilitate diagnostic accuracy. Total DLP (Dose-Length Product): 1159.62 mGy.cm. Please note: The reported value represents the total of one or more individual components during the CT acquisition on this date and at this time, and as such, the same value may appear in more than one CT report depending on the interpreting/reporting physicians. COMPARISON: CT abdomen/pelvis from 05/05/2025 FINDINGS: Kidneys, Ureters, Bladder: Precontrast imaging demonstrates no evidence of urinary tract calculi. After the administration of intravenous contrast material both kidneys concentrate and excrete contrast promptly and symmetrically. The bilateral pelvicalyceal systems opacify normally without evidence of soft tissue filling defects. Reduced conspicuity of the focus of papillary necrosis and perinephric stranding at the interpolar region of the left kidney. No suspicious renal parenchymal mass lesions. The bilateral ureters are normal in course and caliber. The urinary bladder is grossly unremarkable. Remaining Solid Abdominal and Pelvic Organs: Hepatic parenchyma is homogeneous. Adrenal glands are unremarkable. Pancreatic parenchyma is homogeneous. No pancreatic ductal dilatation. The spleen is nonenlarged. No suspicious pelvic mass. GI Tract/Mesentery/Peritoneum: Stomach is unremarkable. Small and large bowel maintain normal caliber and contour. Prior appendectomy. No bowel obstruction. No suspicious mesenteric or peritoneal findings. Free Fluid: No ascites. Lymph Nodes and Vasculature: Unchanged 1.6 cm left para-aortic lymph node inferior to the left renal vein (series 6 image 68). No enlarging abdominopelvic lymph nodes. Tortuosity of the aorta and iliac arteries, similar to comparison. Moderate calcified atherosclerotic plaque within the abdominal aorta and iliac arteries. The portosplenic confluence is patent.. Musculoskeletal and Body Wall: Multilevel advanced spondylosis, with lumbar fusion hardware in place, not significantly changed from comparison. No suspicious body wall findings. Lower Chest: Mild bibasilar atelectasis Procedure Note Pam Jefferson MD - 06/23/2025 CLINICAL INDICATION: hx of bladder cancer, enlarged lymph node on prior scan TECHNIQUE: Multiple pre-contrast axial CT images were obtained from lower chestthrough pubic symphysis, followed by multiple axial CT images of abdomenand pelvis following split bolus administration of IV contrast, [id number], 150 mL. Reformatted images in the coronal and sagittal planes weregenerated from the axial data set to facilitate diagnostic accuracy. Total DLP (Dose-Length Product): 1159.62 mGy.cm. Please note: The reportedvalue represents the total of one or more individual components during theCT acquisition on this date and at this time, and as such, the same valuemay appear in more than one CT report depending on theinterpreting/reporting physicians. COMPARISON: CT abdomen/pelvis from 05/05/2025 FINDINGS: Kidneys, Ureters, Bladder: Precontrast imaging demonstrates no evidence ofurinary tract calculi. After the administration of intravenous contrastmaterial both kidneys concentrate and excrete contrast promptly andsymmetrically. The bilateral pelvicalyceal systems opacify normallywithout evidence of soft tissue filling defects. Reduced conspicuity ofthe focus of papillary necrosis and perinephric stranding at theinterpolar region of the left kidney. No suspicious renal parenchymal masslesions. The bilateral ureters are normal in course and caliber. Theurinary bladder is grossly unremarkable. Remaining Solid Abdominal and Pelvic Organs: Hepatic parenchyma ishomogeneous. Adrenal glands are unremarkable. Pancreatic parenchyma ishomogeneous. No pancreatic ductal dilatation. The spleen is nonenlarged.No suspicious pelvic mass. GI Tract/Mesentery/Peritoneum: Stomach is unremarkable. Small and largebowel maintain normal caliber and contour. Prior appendectomy. No bowelobstruction. No suspicious mesenteric or peritoneal findings. Free Fluid: No ascites. Lymph Nodes and Vasculature: Unchanged 1.6 cm left para-aortic lymph nodeinferior to the left renal vein (series 6 image 68). No enlargingabdominopelvic lymph nodes. Tortuosity of the aorta and iliac arteries,similar to comparison. Moderate calcified atherosclerotic plaque withinthe abdominal aorta and iliac arteries. The portosplenic confluence ispatent.. Musculoskeletal and Body Wall: Multilevel advanced spondylosis, withlumbar fusion hardware in place, not significantly changed fromcomparison. No suspicious body wall findings. Lower Chest: Mild bibasilar atelectasis IMPRESSION: Unchanged enlarged left para-aortic lymph node. Recommend continuedattention on follow-up. No enlarging abdominopelvic lymph nodes. Reduced conspicuity of the presumed focal papillary necrosis at the leftinterpolar region. CRITICAL RESULT: No. COMMUNICATION: Per this written report. Drafted by Pam Jefferson MD on 06/23/2025 9:04 AM Final report signed by Pam Jefferson MD on 06/23/2025 9:15 AM Ministerio Rosas MD IMG CT PROCEDURES Final Resul t documented in this encounter Visit Diagnoses Diagnosis Urothelial carcinoma of bladder without invasion of muscle documented in this encounter Administered Medications Inactive Administered Medications - up to 3 most recent administrations Medication Order MAR Action Action Date Dose Rate Site iohexol (OMNIPaque) 300 MG/ML injection 150 mL 150 mL, Intravenous, Once in imaging, 1 dose, Starting on Tu06/23/25 at 0759, Until 06/23/25 at 0815, Routine, Imaging Protocol Orders Given 06/23/2025 8:15 AM EDT 150 mL documented in this encounter Additional Health Concerns Infection Onset Date Last Indicated 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 Assessment Noted Time PHQ-9 Depression Total Score: 0 05/05/20 2:57 PM EDT A fall risk assessment has been complete d for the patient 06/23/2025 9:58 AM EDT A Body Mass Index follow-up plan has been documented for the patient 06/28/2025 5:47 PM EDT documented as of this encounter Care Teams Target Aircraft Controller Relationship Specialty Start Date End Date Fryman, Eugonda F, PEST LOCATOR [address] [place] [address] PCP - General 05/04/25 Ministerio Rosas MD [address] [facility] [address] [place] [phone] Surgeon Urology 09/23/24 documented as of this encounter
--- OUTSIDE RECORDS SUMMARY | 2025-06-23 10:00 | XMS_ITS | Encounter Summary ---
Author Organization [facility] Address [address] [place] [address] Care Team Providers Care Manager Retention Name Role Phone Ministerio Rosas MD Unavailable [phone] Khadijah Dolan APRN Primary Care Provider [phone] Reason for Referral * Other Medical (Routine) - Pending Review Specialty Diagnoses / Procedures Referred By Loki tyler Referred To Contact Urology Diagnoses Urothelial carcinoma of bladder without invasion of muscle Procedures Cysto- Urology Ministerio Rosas MD [address] [address] Phone: tel: fax: Referral ID Status Reason Start Date Expiration Date V isits Requested Visits Authorized [id number] Pending Review 06/23/2025 12/23/2026 1 1 * Imaging (Routine) - Pending Review Specialty Diagnoses / Procedures Referred By Loki tyler Referred To Contact Radiology Diagnoses Urothelial carcinoma of bladder without invasion of muscle Procedures CT Urogram Ministerio Rosas MD [address] [address] Phone: tel: fax: Referral ID Status Reason Start Date Expiration Date V isits Requested Visits Authorized [id number] Pending Review 06/23/2025 12/23/2026 1 1 Reason for Visit * Reason Comments Cystoscope * Other Medical (Routine) - Closed Specialty Diagnoses / Procedures Referred By Loki tyler Referred To Contact Urology Diagnoses Urothelial carcinoma of bladder without invasion of muscle Procedures Cysto- Urology Ministerio Rosas MD [address] [address] Phone: tel: fax: Referral ID Status Reason Start Date Expiration Date Visits Re quested Visits Authorized [id number] Closed 06/03/2025 12/03/2026 1 1 Encounter Details Date Type Department Care Team (Late st Contact Info) Description 06/23/2025 10:00 AM EDT Office Visit [facility] [address] [place] [address] Ministerio Rosas MD [address] [address] Urothelial carcinoma of bladder without invasion of muscle (Primary Dx) Social History Tobacco Use Types Packs/Day Years Used Date Smoking Tobacco: Every Day Cigarettes 2 45 Smokeless Tobacco: Current Chew Tobacco Cessation:Ready to Q uit: Not Asked; Counseling Given: Not Answered Alcohol Use Standard Drinks/Week Comments Not Currently [...] on file documented as of this encounter Last Filed Vital Signs Vital Sign Reading Time Taken Comments Blood Pressure 156/90 06/23/2025 9:55 AM EDT Pulse 62 06/23/2025 9:55 AM EDT Temperature - - Respiratory Rate - - Oxygen Saturation - - Inhaled Oxygen Concentration - - Weight - - Height 175.3 cm (5' 9 ) 06/23/2025 9:55 AM EDT Body Mass Index - - documented in this encounter Functional Status * Over the [...] Questionnaire -2 Score 0 06/23/2025 10:02 AM EDT Matthias Leggett documented as of this encounter Miscellaneous Notes * Progress Notes - Arnol Escobedo MD - 06/23/2025 10:00 AM EDTAssociated Order(s): Cysto- Urology Pre-Procedure Diagnose(s): Urothelial carcinoma of bladder without invasion of muscle Post-Procedure Diagnose(s): Urothelial carcinoma of bladder without invasion of muscle [facility] Urology Clinic Note 06/23/25 CC: non muscle invasive bladder cancer HPI: Noe Silvestre is a 65 y.o. 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 He was supposed to be seen last April 2025 but left clinic early so did not get cystoscopy at that time but just CT scan. That scan revealed a 1.6cm para-aortic node and so we got a repeat CT today with cystoscopy to assess interval. In clinic he denies gross hematuria, other urinary symptoms. Overall feels he is doing well. He is still smoking cigarettes. Initial Diagnosis: multifocal HG T1 bladder UC (02/2023) Recurrence: None Intravesical Therapy: iBCG (08/2023), mBCG 2x (unable to complete due to shortage) Upper Tract Imaging: today 06/23/25 with unchanged left para-aortic node Last Cysto: 01/2025 Physical Exam: Vitals: 06/23/25 0955 BP: (!) 156/90 Pulse: 62 GEN: NAD HEENT: NCAT, EOMI RESP: Equal bilateral chest rise, normal work of breathing CV: RRR, appears well perfused ABD: Soft, nontender, nondistended EXT: No gross deformities MSK: Full ROM in BL UE NEURO: No focal deficits, AOx3 PSYCH: Normal mood and affect Patient ID: Bucky Silvestre is a 65 y.o. male. Encounter Diagnosis Name Primary? Urothelial carcinoma of bladder without invasion of muscle Yes Cysto- Urology Date/Time: 06/23/2025 10:28 AM Performed by: Arnol Escobedo MD Authorized by: Ministerio Rosas MD Procedure discussed: discussed risks, benefits and alternatives Prep: patient was prepped and draped in usual sterile fashion Urethra Urethra: normal Prostate Prostate comment: Intravesical protrusion of prostate into bladder Bladder Bladder comment: Bilateral orthotopic ureteral orifices effluxing urine. Right dome of bladder witherythema about 1cm in diameter without any nodularity. Post-Procedure Details Outcome: patient tolerated procedure well with no complications Post-procedure interventions: post-procedure instructions given Assessment: Noe Silvestre is a 65 y.o. with high risk (multifocal HG T1 bladder UC) bladder cancer.Cystoscopy today with mild erythema so we will get cytology but without positive cytology will defer any biopsy at this time. CT with unchanged left para-aortic node. We will pay close attention on node size and bladder erythema on next visit.. Plan: - cystoscopy and CTU in 6 months - urine cytology today Arnol Escobedo MD Cosigned by Ministerio Rosas MD at 06/28/2025 5:47 PM EDT Associated attestation - Ministerio Rosas MD - 06/28/2025 5:47 PM EDT I saw and evaluated the patient with the resident/fellow. I discussed the case with the resident/fellow and agree with the findings and plan as documented. and I was present for the entirety of the procedure(s). documented in this encounter Plan of Treatment Upcoming Encounters Date Type Department Care Team (Late st Contact Info) Description 12/22/2025 8:40 AM EST Appointment [facility] CT [address] [place] [address] 12/22/2025 10:30 AM EST Office Visit [facility] [address] [place] [address] Ministerio Rosas MD [address] [place] [address] Scheduled Orders Name Type Priority Associated Diagnoses Orde r Schedule CT Urogram Imaging Routine Urothelial carcinoma of bladder without invasion of muscle Expected: 12/21/2025 (Approximate), Expires: 12/25/2026 Cysto- Urology Procedure Routine Urothelial carcinoma of bladder without invasion of muscle 1 Occurrences starting 06/23/2025 until 12/25/2026 documented as of this encounter Procedures Procedure Name Priority Date/Time Associated Diagnosis Comments CYSTO- UROLOGY Routine 06/23/2025 10:28 AM EDT Urothelial carcinoma of bladder without invasion of muscle NON-GYNECOLOGIC CYTOLOGY Routine 06/23/2025 10:23 AM EDT Urothelial carcinoma of bladder without invasion of muscle POCT URINALYSIS DIPSTICK Routine 06/23/2025 9:55 AM EDT documented in this encounter Results * CYSTO- UROLOGY (06/23/2025 10:28 AM EDT) Narrative Ministerio Rosas MD - 06/23/2025 10:28 AM EDT Ministerio Rosas MD 06/28/2025 5:47 PM Cysto- Urology Date/Time: 06/23/2025 10:28 AM Performed by: Arnol Escobedo MD Authorized by: Ministerio Rosas MD Procedure discussed: discussed risks, benefits and alternatives Prep: patient was prepped and draped in usual sterile fashion Urethra Urethra: normal Prostate Prostate comment: Intravesical protrusion of prostate into bladder Bladder Bladder comment: Bilateral orthotopic ureteral orifices effluxing urine. Right dome of bladder with erythema about 1cm in diameter without any nodularity. Post-Procedure Details Outcome: patient tolerated procedure well with no complications Post-procedure interventions: post-procedure instructions given us Ministerio Rosas MD UROLOGY ORDERABLES Final Resu lt * Urine Cytology-Clinic Collect (06/23/2025 10:23 AM EDT) Case Report Cytology Case: [id number] Authorizing Provider: Ministerio Rosas MD Collected: 06/23/2025 1023 Ordering Location: [facility] Urology Received: 06/23/2025 1049 Pathologist: Sally Sapp MD Specimen: Urine (Voided), VOIDED URINE 06/24/2025 1:59 PM EDT [facility] Final Diagnosis A. VOIDED URINE - NEGATIVE FOR HIGH GRADE UROTHELIAL CARCINOMA 06/24/2025 1:59 PM EDT [facility] at 1359 EDT Clinical History Urothelial Cancer/Hematu jackie 06/24/2025 1:59 PM EDT [facility] Previous Cancer Yes 1:59 PM EDT [facility] Previous Cancer Primary Site Bladder Cancer 06/24/2025 1:59 PM EDT [facility] Gross Description A. VOIDED URINE 70 ml's yellow fluid processed as thin prep 06/24/2025 1:59 PM EDT [facility] Urine Voided urine specimen / Unknown Non-blood Collection / Unknown 06/23/2025 10:23 AM EDT 06/23/2025 10:49 AM EDT us Ministerio Rosas MD LAB CYTOLOGY ORDERABLES Final Result [facility] [address] [place] [address] * POCT URINALYSIS DIPSTICK (06/23/2025 9:55 AM EDT) POCT Urine Color Yellow 06/23/2025 9:57 AM EDT [facility] UROLOGY POCT Urine Clarity Clear 06/23/2025 9:57 AM EDT [facility] UROLOGY POCT Urine Glucose Negative Negative mg/dL 06/23/2025 9:57 AM EDT [facility] UROLOGY POCT Urine Bilirubin Negative Negative mg/dL 06/23/2025 9:57 AM EDT [facility] UROLOGY POCT Urine Ketones Negative Negative mg/dL 06/23/2025 9:57 AM EDT [facility] UROLOGY POCT Urine Specific [place] 1.010 1.005 - 1.030 06/23/2025 9:57 AM EDT [facility] UROLOGY POCT Urine Blood Negative Negative 06/23/2025 9:57 AM EDT [facility] UROLOGY POCT pH, Urine 6.0 5.0 - 8.0 06/23/2025 9:57 AM EDT [facility] UROLOGY POCT Protein, Urine Negative Negative mg/dL 06/23/2025 9:57 AM EDT [facility] UROLOGY POCT Urobilinogen, Urine 0.2 0.2, 1.0 EU/dL 06/23/2025 9:57 AM EDT [facility] UROLOGY POCT Nitrite, Urine Negative Negative 06/23/2025 9:57 AM EDT [facility] UROLOGY POCT Urine Leukocyte Esterase Negative Negative 06/23/2025 9:57 AM EDT [facility] UROLOGY Urine 06/23/2025 9:55 AM EDT 06/23/2025 9:57 AM EDT us Ministerio Rosas MD LAB POINT OF CARE TE ST DOCKED DEVICE UNSOLICITED RESULTS Final Result [facility] UROLOGY [address], [place] documented in this encounter Visit Diagnoses Diagnosis Urothelial carcinoma of bladder without invasion of muscle- Primary documented in this encounter Administered Medications Inactive Administered Medications - up to 3 most recent administrations Medication Order MAR Action Action Date Dose Rate Site lidocaine (Uro-Jet) 2 % gel Urethral, Once, 1 dose, On 06/23/25 at 1100, RoutineIndications:Urotheli al carcinoma of bladder without invasion of muscle Given 06/23/2025 10:11 AM EDT 1 Application documented in this encounter Additional Health Concerns [...] as of this encounter Care Teams Manager Retention Relationship Specialty Start Date End Date Khadijah Dolan APRN [address] [place] [address] PCP - General 05/04/25 Ministerio Rosas MD [id number] [place] [address] Surgeon Urology 09/23/24 documented as of this encounter
--- OUTSIDE RECORDS SUMMARY | 2025-08-17 16:08 | XMS_ITS | Clinical Summary ---
Author Organization [facility] Address [address] [place] [address] Phone Care Team Providers Care Dairy Truck Driver Name Role Phone Lincoln Iqbal MD [ ] Conditions or Problems Problem Name Problem Code Onset Date Status Entry Date Provider Comment Standard Description Annotate emt intermediate (current) drug therapy, INH Z79.899 (ICD-10-CM ) 01/12 Active 01/12 Bobbi Eagle Other fci (current) drug therapy Dysuria 46028673 (SNOMED CT) 12/19 Active 12/19 Lincoln Iqbal MD Dysuria Adverse drug reaction 166315648 (SNOMED CT) 12/19 Active 12/19 Lincoln Iqbal MD H/O: Disorder Nausea 236475180 (SNOMED CT) 12/19 Active 12/19 Lincoln Iqbal [...] involvement DM II with diabetic peripheral neuropathy 73305525 (SNOMED CT) Active Bobbi Eagle Type 2 [...] without damage to nail, initial encounter Obesity 039290649 (SNOMED CT) Inactive Bobbiarabella Eagle Obesity Diarrhea, antibiotic associated 898323604 (SNOMED CT) 11/20 Inactive 11/20 Bobbi Eagle Antibiotic-ass ociated diarrhea Diarrhea, antibiotic associated 264067527 (SNOMED CT) 11/20 Removed 11/20 Lincoln Iqbal MD Antibiotic-ass ociated diarrhea Obesity 810692537 (SNOMED CT) Removed Trish Napier RN Obesity [...] W Nicotine dependence, cigarettes, uncomplicated Tobacco abuse 90547451 (SNOMED CT) Inactive Lincoln Iqbal MD Tobacco [...] acute osteomyelitis, right hand Benign Essential Hypertension 1422854 (SNOMED CT) Active Bobbi Eagle Benign essential hypertension DM Type II E11.9 (ICD-10-CM ) Inactive Bobbi Eagle Type 2 diabetes mellitus without complications Dog bite, initial treatment encounter(s) W54.0xxA (ICD-10-CM ) Removed Bobbi Eagle Bitten by dog, initial encounter Medications Medication Instructions Start Date Stop Date Generic Name ND Provider RIFAMPIN 300 MG CAPS 2 daily RIFAMPIN 93513908193 Lincoln Iqbal MD ISONIAZID 300 MG TABS one daily ISONIAZID 52019356480 Lincoln Iqbal MD B-6 50 MG TABS one daily PYRIDOXINE HCL 07089523016 Lincoln Iqbal MD TRAMADOL HCL 50 MG TABS by mouth twice daily TRAMADOL HCL 35437111802 Devonte Holland CELEBREX 200 MG CAPS by mouth daily CELECOXIB 98321614939 Devonte Holland LYRICA 150 MG CAPS by mouth twice daily PREGABALIN 67003821618 Devonte Holland DIAZEPAM 5 MG TABS Take/use as needed. DIAZEPAM 88168394690 Devonte Holland MELOXICAM 15 MG TABS by mouth daily MELOXICAM 51255276005 Devonte Holland NORCO 10-325 MG ORAL TABLET HYDROCODONE-ACET AMINOPHEN 31212655317 Devonte Holland VICOPROFEN 7.5-200 MG ORAL TABLET HYDROCODONE-IBUP ROFEN 54102628876 Devonte Holland BACTRIM DS 800-160 MG TABS SULFAMETHOXAZOLE -TRIMETHOPRIM 51030952902 Devonte Holland MUPIROCIN 2 % OINT apply daily to finger MUPIROCIN 97395211386 Devonte Amalia CIPROFLOXACIN HCL 500 MG TABS 1 by mouth twice a day CIPROFLOXACIN HCL 71910922317 Devonte Holland MINOCYCLINE HCL 100 MG CAPS one pill by mouth twice daily MINOCYCLINE HCL 93614801940 Devonte Holland INVANZ 1 GM INTRAVENOUS SOLUTION RECONSTITUTED 1gm IV daily [facility] [phone](f) [phone] ERTAPENEM SODIUM 01761514494 Clementine Pablo MINOCYCLINE HCL 100 MG CAPS one pill by mouth twice daily MINOCYCLINE HCL 70504603819 Lincoln Iqbal MD CIPROFLOXACIN HCL 500 MG TABS 1 by mouth twice a day CIPROFLOXACIN HCL 44358633208 Lincoln Iqbal MD INVSALVADOR 1 GM INTRAVENOUS SOLUTION RECONSTITUTED 1gm IV daily [facility] [phone](f) [phone] ERTAPENEM SODIUM 90571740387 [facility] INVANZ 1 GM INTRAVENOUS SOLUTION RECONSTITUTED 1gm IV daily [facility] (f) [phone] ERTAPENEM SODIUM 59321064404 [facility] MINOCYCLINE HCL 100 MG CAPS 1 twice daily MINOCYCLINE HCL 74025896861 Shyanne Rangel RN CIPROFLOXACIN HCL 500 MG TABS 1 by mouth twice a day CIPROFLOXACIN HCL 75228270529 Shyanne Rangel RN CIPROFLOXACIN HCL 500 MG TABS 1 by mouth twice a day CIPROFLOXACIN HCL 91071046868 Lincoln Iqbal MD MINOCYCLINE HCL 100 MG CAPS 1 twice daily MINOCYCLINE HCL 39060847179 Lincoln Iqbal MD MUPIROCIN 2 % OINT apply daily to finger MUPIROCIN 44641125616 Lincoln Iqbal MD VITAMIN D2 50 MCG (1999 UT) TABS 1.25mg daily ERGOCALCIFEROL 20928002054 Parisa Marcial ALLEN LOW DOSE 81 MG TBEC by mouth daily ASPIRIN 56535231495 Parisa Marcial DIAZEPAM 5 MG TABS Take/use as needed. DIAZEPAM 03356859144 Parisa Marcial DICLOFENAC SODIUM 75 MG TBEC DICLOFENAC SODIUM 51474262844 Parisa Marcial LISINOPRIL 40 MG TABS by mouth daily LISINOPRIL 32045996655 Parisa Marcial LYRICA CAPS PREGABALIN CAPS 34006999998 Parisa Marcial METFORMIN HCL 500 MG TABS by mouth twice daily METFORMIN HCL 82160529479 Parisa Marcial MELOXICAM 15 MG TABS by mouth daily MELOXICAM 72419193811 Parisa Marcial VOLTAREN 1 % GEL DICLOFENAC SODIUM 09217727571 Parisa Marcial VOLTAREN 1 % GEL DICLOFENAC SODIUM 27177961093 Janet Madden VICOPROFEN 7.5-200 MG ORAL TABLET HYDROCODONE-IBUP ROFEN 05733357117 Janet Solanox NORCO 10-325 MG ORAL TABLET HYDROCODONE-ACET AMINOPHEN 03031264680 Janet Solanox METFORMIN HCL 500 MG TABS METFORMIN HCL 90856595308 Janet Griffindox MELOXICAM TABS MELOXICAM TABS 82269620896 Janet Madden LYRICA CAPS PREGABALIN CAPS 55955176401 Janet Madden LISINOPRIL 40 MG TABS LISINOPRIL 59727850343 Janet Madden LEVOTHYROXINE SODIUM TABS LEVOTHYROXINE SODIUM TABS 75520913826 Janet Madden EFFEXOR XR 75 MG [id number] VENLAFAXINE HCL 99782298039 Janet Madden DICLOFENAC SODIUM 75 MG TBEC DICLOFENAC SODIUM 36442213104 Janet Madden DIAZEPAM 5 MG TABS DIAZEPAM 12580113569 Janet Madden BACTRIM DS 800-160 MG TABS SULFAMETHOXAZOLE -TRIMETHOPRIM 45522393082 Janet Madden Medications Administered No information available. [...] Blood by Automated count Lab Report: COMPREHENSIVE [place] TABOLIC PANEL ANIONGAP 8.0 mmol/L 3.0-11.0 anion 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 BOARD CERTIFIED ARTS THERAPIST yes Dietary management education, guidance, and counseling [...] antibiotics 20 10/12/27 CPT-oral Discontinue oral antibiotics CPT-45456 CMP [id number] CBC with Differential 2018 CPT-60488 Urine Culture & Sensitivity CPT-41709 Urinalysis with microscopic exam CPT-patrice New Oral [...] New IV antibiotic CPT-patrice New Oral Antibiotic CPT-53274 PICC Line Insertion CPT-54715 PICC Line Insertion CPT-wpc Weekly PICC Line Care CPT- stat weekly Stat Weekly Labs [id number] CBC with Differential 2015 CPT-87785 CMP CPT-09115 C- reactive protein CPT-11026 Sedimentation Rate (ESR) 201 03/31/24 [address]1375 Hepatitis C Atb: (ICD 10 Code: Z11.59) [...]
--- OUTSIDE RECORDS SUMMARY | 2025-08-17 16:10 | XMS_ITS | Encounter Summary ---
Author Organization [employer] ([place], [place], [place], [place]) Address [address] [place] [address] Care Team Providers Care Shaker Tender Name Role Phone Unavailable Primary Care Provider Unavailbrianna e Encounter Details Date Type Department Care Team (Late st Contact Info) Description 10/31/[address] [facility] [place] [address] [place] [address] ProviderFarhan MD [address] [place] [address] Social History Tobacco Use Types [...] - Historical ProviderMD - 10/31/2020 5:00 AM STITCHDOWN TOE FORMER Chart Check - Review Order Profile Entered On: 10/31/2020 6:54 EST Performed On: 10/31/2020 5:00 EST by Rebeca Espino RN Chart Check Powerplans Initiated/Discontinued as Appropriate : Yes All Active Orders Reviewed : Yes Rebeca Espino RN - 10/31/2020 6:54 EST Electronically signed by Kailey [facility] Conversion Interior Designer Mario at 02/08/2023 12:43 PM CDT documented in this encounter Plan of Treatment Not on file documented as of this encounter Visit Diagnoses Not on filedocumented in this encounter
--- OUTSIDE RECORDS SUMMARY | 2025-08-17 16:10 | XMS_ITS | Encounter Summary ---
Author Organization [employer] ([place], [place], [place], [place]) Address [address] [place] [address] Care Team Providers Care Substation Maintenance Technician Name Role Phone Unavailable Primary Care Provider Unavailabl e Encounter Details Date Type Department Care Team (Late st Contact Info) Description 10/31/2020 Transcribed Document [facility] [place] [address] [place] [address] ProviderFarhan MD [address] [place] [id number] Social History Tobacco Use Types Packs/Day Years [...] - Historical ProviderMD - 10/31/2020 2:50 PM ASSISTANCE SPECIALIST Initial Discharge Planning Entered On: 10/31/2020 14:51 EST Performed On: 10/31/2020 14:50 EST by SHAWNEE MAYORGA RN-Card Folder Initial Assessment I Previously Documented Living Environment [...] Is Guardianship Needed : No SHAWNEE MAYORGA RN-Card Folder - 10/31/2020 14:50 EST Initial Assessment II Sensory and Motor Deficits : None Current Home Treatments and Equipment : None SHAWNEE MAYORGA RN-Card Folder - 10/31/2020 14:50 EST Discharge Needs I Anticipated Discharge Date : 10/31/2020 EST Anticipated Discharge To, CM : Home with family care Current Home Treatment/Equipment : Current Home Treatment/Equipment No qualifying data available. Post Acute/Home Treatments : None Documentation Status Complete : Yes SHAWNEE MAYORGA RN-Card Folder - 10/31/2020 14:50 EST Discharge Needs II Professional Skilled Services : Professional Skilled Services No qualifying data available. Needs Assistance with Transportation : No Discharge Options Discussed with Patient : Discharge transportation, DME, Home Health SHAWNEE MAYORGA RN-Card Folder - 10/31/2020 14:50 EST documented in this encounter Plan of Treatment Not on file documented as of this encounter Visit Diagnoses Not on filedocumented in this encounter
--- OUTSIDE RECORDS SUMMARY | 2025-08-17 16:10 | XMS_ITS | Encounter Summary ---
Author Organization [employer] ([place], [place], [place], [place]) Address [address] [place] [address] Care Team Providers Care Dry Starch Supervisor Name Role Phone Unavailable Primary Care Provider Unavailabl e Encounter Details Date Type Department Care Team (Late st Contact Info) Description 11/02/2020 Transcribed Document [facility] [place] [address] [place] [address] ProviderFarhan MD [address] [place] [id number] Social History Tobacco Use Types Packs/Day Years [...] - Historical ProviderMD - 11/02/2020 6:38 AM ANTHROPOLOGY DEPARTMENT CHAIR UM Authorization Entered On: 11/02/2020 6:38 EST Performed On: 11/02/2020 6:38 EST by Diana Garcia, Wrecking Crane Engine Operator Primary Insurance Authorization Authorization and Policy Numbers : Insurance 1 Health Plan: [employer] CHOICE PPO Policy Number: [id number] Authorization Number: Insurance Primary Name : [employer] Choice [id number] Authorization Status-Primary : Notification only Auth/Referral Contact Name-Primary : Alfredo Casas Reference Number-Primary : [id number] Authorization Number-Primary : [id number] Number of Days Authorized-Primary : 5 Day(s) Authorized Service Begin Date-Primary : 10/29/2020 EST Authorized Service End Date-Primary : 11/03/2020 EST Authorization Comments-Primary : Authorized per email from Alfredo Muller RN. Historical Authorization Comments-Primary : Comment 1: inpt admission approved by [employer] choice per Availity. (TAQUERIA AGRAWAL Mkt Patient Ambassador-Utilization Mgt 11/01/2020 15:33) Comment 2: per availity auth pended (Ca Amaya, Rn-Utilization Review 10/30/2020 10:50) Comment 3: call to [facility]/dr slater office to obtain preauth #. She states no auth # yet. She will call [employer] to check on it and call me back (ROLF LUDWIG, RN-Utilization Review 10/28/2020 13:52) Comment 4: Pt is david for INPT Lumbar Fusion Posterior 3 Level on Sunday10-29-20 [employer] Choice: No auth notes in [facility] or availity as of yet (DERICK SHIPMAN, Hand Surgeon 10/28/2020 12:39) Diana Garcia, Wrecking Crane Engine Operator - 11/02/2020 6:38 EST documented in this encounter Plan of Treatment Not on file documented as of this encounter Visit Diagnoses Not on filedocumented in this encounter
--- OUTSIDE RECORDS SUMMARY | 2025-08-17 16:10 | XMS_ITS | Encounter Summary ---
Author Organization [employer] ([place], [place], [place], [place]) Address [address] [place] [address] Care Team Providers Care Airline Station Agent Name Role Phone Unavailable Primary Care Provider Unavailabl e Encounter Details Date Type Department Care Team (Late st Contact Info) Description 11/04/2020 Transcribed Document [facility] Family Medicine [facility] [place] [address] ProviderFarhan MD [address], [place] [id number] Social History Tobacco Use Types Packs/Day Years [...] - Farhan ProviderMD - 11/04/2020 6:06 PM ENROLLMENT MANAGEMENT COORDINATOR Patient Resource Center Entered On: 11/04/2020 18:08 EST Performed On: 11/04/2020 18:06 EST by Armida Naidu, Care Support Representative Patient Resource Center Provider Status : EST Other Established Provider Name : MANJEET HURLEY Patient Phone Number : [phone] Patient Insurance Type : Medicare Source of [...] at ED : Other Primary Language : Libyan Patient Resource Center Comment : Patient needs follow up appointment. Called office and patient already has two appointments scheduled with Addie Veliz (2 week staple removal and 4 week post op) Follow Up Needed : Armida Youssef, Care Support Representative - 11/04/2020 18:06 EST Electronically signed by Alec Bonner Conversion Certified Juvenile Probation Officer Cerner at 02/08/2023 12:17 PM CDT documented in this encounter Plan of Treatment Not on file documented as of this encounter Visit Diagnoses Not on filedocumented in this encounter
--- OUTSIDE RECORDS SUMMARY | 2025-08-17 16:10 | XMS_ITS | Encounter Summary ---
Author Organization [employer] ([place], [place], [place], [place]) Address [address] [place] [address] Care Team Providers Care A P Manager Name Role Phone Unavailable Primary Care Provider Unavailabl e Encounter Details Date Type Department Care Team (Late st Contact Info) Description 11/01/2020 Transcribed Document [facility] [place] Family Medicine [address] [place] [address] ProviderFarhan MD [address] [place] [address] Social History Tobacco Use Types [...] - Historical ProviderMD - 11/01/2020 3:33 PM PROP SETTER UM Authorization Entered On: 11/01/2020 15:33 EST Performed On: 11/01/2020 15:33 EST by TAQUERIA AGRAWAL Mkt Border Measurer And Cutter-Utilization Mgt Primary Insurance Authorization Authorization and Policy Numbers : Insurance 1 Health Plan: [employer] PPO Policy Number: [id number] Authorization Number: Insurance Primary Name : [employer] [id number] Authorization Status-Primary : Admit approved Auth/Referral Contact Name-Primary : Alfredo R Reference Number-Primary : [id number] Authorization Number-Primary : [id number] Number of Days Authorized-Primary : 5 Day(s) [...] or availity as of yet (DERICK SHIPMAN, Gasfitter 10/28/2020 12:39) TAQUERIA AGRAWAL Mkt Border Measurer And Cutter-Utilization Mgt - 11/01/2020 15:33 EST Electronically signed by Kailey [facility] Conversion Bronc Breaker Cerner at 02/08/2023 12:13 PM CDT documented in this encounter Plan of Treatment Not on file documented as of this encounter Visit Diagnoses Not on filedocumented in this encounter
--- OUTSIDE RECORDS SUMMARY | 2025-08-17 16:10 | XMS_ITS | Encounter Summary ---
Author Organization [employer] ([place], [place], [place], [place]) Address [address] [place] [address] Care Team Providers Care Planogrammer Name Role Phone Unavailable Primary Care Provider Unavailabl e Encounter Details Date Type Department Care Team (Late st Contact Info) Description 10/31/2020 Transcribed Document [facility] [place] Family Medicine [address] [place] [address] ProviderFarhan MD [address], [place] [id number] Social History Tobacco Use Types Packs/Day Years [...] - Historical ProviderMD - 10/31/2020 3:52 PM CHANNEL MARKETING COORDINATOR Final Discharge Planning Entered On: 10/31/2020 15:53 EST Performed On: 10/31/2020 15:52 EST by SHAWNEE MAYORGA RN-Potato Bucker Final Discharge Planning Discharge Arrangements : Patient Post-Acute Information Patient Name: FRANSISCO CRAVEN Gender: Male : [birth year] Age: 60 Years No Post-Acute Placement(s) Listed No Post-Acute Service(s) Listed No Curaspan Referral(s) Listed Follow Up Appointment Scheduled : Yes Is Patient High/Moderate Readmission Risk? : No Discharge To Care Management : Home/Residential/Fdc or Self Care - SHAWNEE MAYORGA RN-Potato Bucker - 10/31/2020 15:52 EST Final Narrative Note Final Narrative Note : To d/c home with . Per PLOF independent. Ordered walker and BSC from [facility] and to deliver to room prior to d/c. denies need for HH or other needs. SHAWNEE MAYORGA, RN-Potato Bucker - 10/31/2020 15:52 EST Electronically signed by Kailey [facility] Conversion Field Marketing Director Cerner at 02/08/2023 12:21 PM CDT documented in this encounter Plan of Treatment Not on file documented as of this encounter Visit Diagnoses Not on filedocumented in this encounter
--- OUTSIDE RECORDS SUMMARY | 2025-08-17 16:10 | XMS_ITS | Encounter Summary ---
Author Organization [employer] ([place], [place], [place], [place]) Address [address] [place] [address] Care Team Providers Care Manager Speech Name Role Phone Unavailable Primary Care Provider Unavailbrianna e Encounter Details Date Type Department Care Team (Late st Contact Info) Description 10/31/2020 Transcribed Document [facility] [place] Family Medicine [address] [place] [address] ProviderFarhan MD [address] [place], [place] [id number] Social History Tobacco Use Types Packs/Day Years [...] - Historical ProviderMD - 10/31/2020 2:00 AM SPORTS BOOK BOARD ATTENDANT Java Designer Details Entered On: 10/31/2020 2:40 EST Performed On: 10/31/2020 2:00 EST by Rebeca Epsino RN Order Details Transport Mode Order Detail [...] 10/31/2020 2:40 EST Electronically signed by Kailey [facility] Conversion Candy Vendor Cerner at 02/08/2023 12:39 PM CDT documented in this encounter Plan of Treatment Not on file documented as of this encounter Visit Diagnoses Not on filedocumented in this encounter
--- OUTSIDE RECORDS SUMMARY | 2025-08-17 16:10 | XMS_ITS | Encounter Summary ---
Author Organization [employer] ([place], [place], [place], [place]) Address [address] [place] [address] Care Team Providers Care Brewery Representative Name Role Phone Unavailable Primary Care Provider Unavailabl e Encounter Details Date Type Department Care Team (Late st Contact Info) Description 10/31/2020 Transcribed Document [facility] Neurology - [address] [facility] [address] [place] [address] Addie Veliz Jr., MD [address] [place] [address] [address] [place] [address] Social History Tobacco Use Types [...]
--- OUTSIDE RECORDS SUMMARY | 2025-08-17 16:10 | XMS_ITS | Encounter Summary ---
Author Organization [employer] ([place], [place], [place], [place]) Address [address] [place] [address] Care Team Providers Care Material Distributor Name Role Phone Unavailable Primary Care Provider Unavailabl e Encounter Details Date Type Department Care Team (Late st Contact Info) Description 10/31/2020 Transcribed Document [facility] Radiology [address] [place] [address] Mary Beth Orr MD [address] [address] Social History Tobacco Use Types [...] a 60 yo male [address] to [facility] per Dr. Green for an [...] 100 mg intravenous injection 1 Infusion, IntraVENous, [id number] Jardiance 25 mg oral tablet 25 mg [...]
--- OUTSIDE RECORDS SUMMARY | 2025-08-17 16:10 | XMS_ITS | Encounter Summary ---
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 [place] [address] FRANSISCO CRAVEN :1960 Visit Time:10/29/2020 Your [...] 1) tramadol (Ultram)--this will be replaced by Thornton (hydrocodone-acetaminophen) call MD for fever greater than 101 degrees for 24 hours; increased pain,redness or swelling and/or drainage after 5 days Follow-Up Appointments Follow Up with ADDIE VELIZ When Within 2 weeks Nirali hylton Where: [address] [place] [address] [address] [place] [address] [facility] (1) Medications What How Much When Instructions Next Dose acetaminophen-hydrocodone (Thornton 10 mg-325 mg oral tablet) 1 Tablet(s) [...] these instructions at home: Medicines ??? Take aaay-ogb-jmeflju and prescription medicines only as told by [...] cannot use soap and water, use hand paper products printer. ? Change your bandage as told by [...] your pee (urine) pale yellow. ? Take ffln-zcc-rasnxfk or prescription medicines. ? Eat foods that [...] 02/01/2012 Document Revised: 01/29/2020 Document Reviewed: 01/22/2018 Swift[employer]MD(TM) by [employer] Patient Education ?? 2020 [employer]. acetaminophen and hydrocodone (a SEET a MIN oh fen and michael droe KOE done) Hycet, Lorcet, Thornton, Verdrocet, Vicodin, Xodol, Zamicet What is the [...] may report side effects to FDA at 3-755-QJQ-1088. What other drugs will affect acetaminophen and [...] affect acetaminophen and hydrocodone, including prescription and zqdy-ffx-bgdeafn medicines, vitamins, and herbal products. Not all [...] to ensure that the information provided by [employer]. ('[employer]') is accurate, up-to-date, and complete, but no guarantee is made to that effect. Drug information contained herein may be time sensitive. [employer] information has been compiled for use by healthcare practitioners and consumers in the [place] and therefore [employer] does not warrant that uses outside of the [place] are appropriate, unless specifically indicated otherwise. [employer] drug information does not endorse drugs, diagnose patients or recommend therapy. [employer] drug information is an informational resource designed [...] with your doctor, nurse or pharmacist. Copyright 4317-3191 [employer]. Version: 16.01. Revision Date: 11/12/2019. Emergency Awareness [...] Assistance with quitting is available by contacting 0-215-ESKT-NOW. This is a free resource providing counseling, [...] range between ( 0.0 and 7.0 ) [place] #: 1.07 K/uL -- Normal range between ( 0.16 and 1.00 ) Eos #: 0.03 x10(3)/uL -- Normal range between ( 0.00 and 0.80 ) [place] %: 7.3 % -- Normal range between [...] ) Urine Bilirubin Dipstick: Negative Urine Specific [place]: *1.028 -- Normal range between ( 1.005 [...] was given the opportunity to ask questions. Patient/Tire Wrapper Name: Patient/Tire Wrapper Signature: Relationship to Patient: Clinician/Hospital Tire Wrapper Signature: Date: documented in this encounter Plan of Treatment Not on file documented as of this encounter Visit Diagnoses Not on filedocumented in this encounter
--- OUTSIDE RECORDS SUMMARY | 2025-08-17 16:11 | XMS_ITS | Encounter Summary ---
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 Patient: FRANSISCO CRAVEN Age: 60 Years Sex: Male : 1960 Admit Date 10/29/2020 12:20 Discharge Date 10/31/2020 15:52 Primary Care Provider MANJEET HURLEY, [facility] Discharge Diagnosis Lumbar stenosis 10/31/2020 [...] 100 mg intravenous injection 1 Infusion, IntraVENous, [id number] Jardiance 25 mg oral tablet 25 mg = 1 Tab, Oral, QAM levothyroxine 200 mcg, Oral, Daily lisinopril 40 mg, Oral, Daily loratadine 10 mg oral tablet 10 mg = 1 Tab, Oral, Daily Lyrica 225 mg oral capsule 225 mg = 1 Cap, Oral, BID metFORMIN 1,000 mg, Oral, BID [place] 10 mg-325 mg oral tablet 1 Tab, [...]
--- OUTSIDE RECORDS SUMMARY | 2025-08-17 16:11 | XMS_ITS | Encounter Summary ---
Author Organization Healthcare Address [address] [place] [address] Care Team Providers Care Brewing Director Name Role Phone Ministerio Rosas MD Unavailable Khadijah Dolan APRN Primary Care Provider [phone] Encounter Details Date Type Department Care Team [...] Info) Description 12/22/2025 8:40 AM EST Appointment [facility] [address] [place] [address] 12/22/2025 10:30 AM EST Office Visit [facility] [address], [address] [place] [address] Ministerio Rosas MD [address] [address] documented as of this encounter [...] documented as of this encounter Care Teams Brewing Director Relationship Specialty Start Date End Date Khadijah Dolan APRN [address] [place] [address] PCP - General 05/04/25 Ministerio Rosas MD [address] [id number] Surgeon Urology 09/23/24 documented as of this encounter
--- OUTSIDE RECORDS SUMMARY | 2025-08-17 16:11 | XMS_ITS | Data Portability ---
Author Organization [facility] Address [address] [place] [address] Assessment No assessment recorded. Plan of Treatment Reminders Order Date Submit Date Provider Last Modified By Organization Details Last Modified Time Details Appointments None recorded. Lab urinalysis , dipstick 2022 023 [facility], [address] [place] [address], [address], 3 15:53:11 urinalysis , dipstick [address] [facility], [address] [place] [address], [address], 3 16:27:34 urinalysis , dipstick [address] [facility], [address] [place] [address], [address], 2 19:09:17 Referral None recorded. Procedures bladder scan (PROC) 2022 023 [facility], [address] [place] [address], [address], 3 15:53:11 Surgeries None recorded. Imaging None recorded. Medication Orders None recorded. Patient TargetsNo targets recorded. Patient InstructionsNo instructions recorded. Reason for Referral None Reported. Results Created Date Observation Date Name Description Value Unit Range Abnormal Flag Note LastModifiedBy Organization Detail LastModifiedTime 09/05/20 22 09/05/2022 urina lysis , dipst ick Leukocytes (reference range) negati ve Not Available [facility] [address] [place] [address], [address], 09/05/2022 11:12:11 09/05/20 22 09/05/2022 urina lysis , dipst ick Nitrite (reference range:) negati ve Not Available [facility] [address] [place] [address], [address], 09/05/2022 11:12:11 09/05/20 22 09/05/2022 urina lysis , dipst ick Urobilinogen (reference range) 0.2 Not Available [address], [address], 09/05/2022 11:12:11 09/05/20 22 09/05/2022 urina lysis , dipst ick Protein (reference range) negati ve Not Available [facility] [address] [place] [address], [address], 09/05/2022 11:12:11 09/05/20 22 09/05/2022 urina lysis , dipst ick pH (reference range 5-8.5) 6.[address] [facility] [address] [place] [address], [address], 09/05/2022 11:12:11 09/05/20 22 09/05/2022 urina lysis , dipst ick Blood (reference range:) large Not Available [facility] [address] [place] [address], [address], 09/05/2022 11:12:11 09/05/20 22 09/05/2022 urina lysis , dipst ick Specific [place] (reference range) 1.[address] [facility] [address] [place] [address], [address], 09/05/2022 11:12:11 09/05/20 22 09/05/2022 urina lysis , dipst ick Ketone (reference range) negati ve Not Available [facility] [address] [place] [address], [address], 09/05/2022 11:12:11 09/05/20 22 09/05/2022 urina lysis , dipst ick Bilirubin (reference range) negati ve Not Available [facility] [address] [place] [address], [address], 09/05/2022 11:12:11 09/05/20 22 09/05/2022 urina lysis , dipst ick Glucose (reference range) 1000 Not Available [facility] [address] [place] [address], [address], 09/05/2022 11:12:11 10/24/19 23 10/24/2022 BASIC METAB OLIC PANEL sodium 139 mmol/ L 137-14 7 Not Available [facility] [address] [place] [address] [place], [address], 10/24/2022 15:15:37 10/24/19 23 10/24/2022 BASIC METAB OLIC PANEL potassium 4.1 mmol/ L 3.5-5. 1 Not Available [facility]) [address] [place] [address] [place], [address], 10/24/2022 15:15:37 10/24/19 23 10/24/2022 BASIC METAB OLIC PANEL chloride 102 mmol/ L 98-110 Not Available [facility] ([facility]) [address] [place] [address] [place], [address], 10/24/2022 15:15:37 10/24/19 23 10/24/2022 BASIC METAB OLIC PANEL carbon dioxide 20 mmol/ L 21-30 low Not Available [facility]) [address] [place] [address] [place], [address], 10/24/2022 15:15:37 10/24/19 23 10/24/2022 BASIC METAB OLIC PANEL anion gap 17 mmol/ L 6-14 high Not Available [facility] ([facility]) [address] [facility] [place], [address], 10/24/2022 15:15:37 10/24/19 23 10/24/2022 BASIC METAB OLIC PANEL glucose 236 mg/dL 70-115 high Not Available [facility]) [address] [place] [address] [place], [address], 10/24/2022 15:15:37 10/24/19 23 10/24/2022 BASIC METAB OLIC PANEL BUN 28 mg/dL 9-20 high Not Available [facility]) [address] [place] [address] [place], [address], 10/24/2022 15:15:37 10/24/19 23 10/24/2022 BASIC METAB OLIC PANEL creatinine 1.1 mg/dL 0.5-1. 5 Not Available [facility]) [address] [place] [address] [place], [address], 10/24/2022 15:15:37 10/24/19 23 10/24/2022 BASIC METAB OLIC PANEL BUN/creatini ne ratio 25 ratio 10-20 high Not Available [facility]) [address] [place] [address] [place], [address], 10/24/2022 15:15:37 10/24/19 23 10/24/2022 BASIC METAB OLIC PANEL glom filtration rate 73 mL/mi n >60- Not Available [facility] ([facility]Op [facility]) [address] [place] [address] [place], [address], 10/24/2022 15:15:37 10/24/19 23 10/24/2022 BASIC METAB OLIC PANEL osmolality (calculated) 302 mosmo l/kg 275-30 1 high OSMOL ALITY IS A CALCU LATIO N UTILI ZING THE SERUM /PLAS MA SODIU M, GLUCO SE AND UREA NITRO GEN (BUN) LEVEL S. FOR THE MOST ACCUR ATE RESUL T A MEASU RED SERUM OSMOL ALITY IS SUGOCTAVIANO STED. Not Available [facility]) [address] [place] [address] [place], [address], 10/24/2022 15:15:37 10/24/1910/24/2022 BASIC METAB OLIC PANEL calcium 8.9 mg/dL 8.5-10 .8 Not Available [facility]) [address] [place] [address] [place], [address], 10/24/2022 15:15:37 10/24/1910/24/2022 BASIC METAB OLIC PANEL note Unles s other jeronimo noted testi ng perfo [facility]med at: [facility] [address] [place] [address] Mike dutton MD Not Available [facility]) [address] [place] [address] [place], [address], 10/24/2022 15:15:37 11/13/19 23 11/13/2022 urina lysis , dipst ick Leukocytes (reference range) negati ve Not Available [facility] [address] [place] [address], [address], 11/13/2022 14:31:14 11/13/1911/13/2022 urina lysis , dipst ick Nitrite (reference range:) negati ve Not Available [facility] [address] [place] [address], [address], 11/13/2022 14:31:14 11/13/1911/13/2022 urina lysis , dipst ick Urobilinogen (reference range) 1 Not Available [facility] [address] [place] [address], [address], 11/13/2022 14:31:14 11/13/19 23 11/13/2022 urina lysis , dipst ick Protein (reference range) negati ve Not Available [address], [address], 11/13/2022 14:31:14 11/13/1911/13/2022 urina lysis , dipst ick pH (reference range 5-8.5) 6.0 Not Available [address], [address], 11/13/2022 14:31:14 11/13/1911/13/2022 urina lysis , dipst ick Blood (reference range:) large Not Available [address], [address], 11/13/2022 14:31:14 11/13/19 23 11/13/2022 urina lysis , dipst ick Specific [place] (reference range) 1.010 Not Available [address], [address], 11/13/2022 14:31:14 11/13/19 23 11/13/2022 urina lysis , dipst ick Ketone (reference range) negati ve Not Available [address], [address], 11/13/2022 14:31:14 11/13/1911/13/2022 urina lysis , dipst ick Bilirubin (reference range) negati ve Not Available [address], [address], 11/13/2022 14:31:14 11/13/1911/13/2022 urina lysis , dipst ick Glucose (reference range) 1000 Not Available [address], [address], 11/13/2022 14:31:14 11/30/19 23 11/30/2022 urina lysis , dipst ick Leukocytes (reference range) negati ve Not Available [address], [address], 11/30/2022 09:55:20 11/30/19 23 11/30/2022 urina lysis , dipst ick Nitrite (reference range:) negati ve Not Available [address], [address], 11/30/2022 09:55:20 11/30/1911/30/2022 urina lysis , dipst ick Urobilinogen (reference range) 0.2 Not Available [address], [address], 11/30/2022 09:55:20 11/30/19 23 11/30/2022 urina lysis , dipst ick Protein (reference range) 30 Not Available [address], [address], 11/30/2022 09:55:20 11/30/1911/30/2022 urina lysis , dipst ick pH (reference range 5-8.5) 6.0 Not Available [address], [address], 11/30/2022 09:55:20 11/30/19 23 11/30/2022 urina lysis , dipst ick Blood (reference range:) large Not Available [address], [address], 11/30/2022 09:55:20 11/30/19 23 11/30/2022 urina lysis , dipst ick Specific [place] (reference range) 1.010 Not Available [address], [address], 11/30/2022 09:55:20 11/30/19 23 11/30/2022 urina lysis , dipst ick Ketone (reference range) negati ve Not Available [facility] [address] [place] [address], [address], 11/30/2022 09:55:20 11/30/19 23 11/30/2022 urina lysis , dipst ick Bilirubin (reference range) negati ve Not Available [address], [address], 11/30/2022 09:55:20 11/30/19 23 11/30/2022 urina lysis , dipst ick Glucose (reference range) 1000 Not Available [address], [address], 11/30/2022 09:55:20 11/30/19 23 11/30/2022 bladd er scan (PROC ) Calculated Residual Urine: 16ml Not Available [address], [address], 11/30/2022 09:55:23 10/28/19 23 10/28/2022 [place] hickey am No observ ation record ed. [facility] [address] [place] [address], [address], 10/30/2022 14:12:08 Result Notes None recorded. Procedures Surgical History Date Name Laterality Status Provider Name and Address Organization Details Recorded Time 3 Procedure Note completed Iain Eckert Jr, MD [address] [facility], [address], [place], [address], [facility] & [place] 12/28/2022 17:17:59 7 Appendectomy completed Genet Duncan [facility] & [place] 09/05/2022 10:50:28 Imaging Results None recorded. Procedure Notes None recorded. Medical Equipment None Reported. Allergies Allergen ID Allergen Name Allergen Category Reaction Reaction Severity Criticality Documentation Date Start Date Code Code System Note Provider Name and Address Organization Details Recorded Time 71328 Product containin g penicilli n (product) medicatio n Not available Not available Not available 09/05/2022 81373 8001 SNOMED Genet Duncan [facility], [place] - [facility] & [place] 2 10:50:07 Medications Name Sig Start Date [...] Updated DateTime 11/13/2022 175.26 cm 38.4 kg/m2 803612.02 g 97.9 [degF] Genet HARTMAN [facility] & [place] 11/13/2022 14:07:16 Date Recorded Body height Body mass index (BMI) Body weight Body temperature Provider Name and Address Organization Details Last Updated DateTime 11/30/2022 175.26 cm 38.4 kg/m2 682237.02 g 97.9 [degF] [facility] [place] 11/30/2022 08:54:14 Date Recorded Body height Body mass index (BMI) Body weight Body temperature Provider Name and Address Organization Details Last Updated DateTime 12/28/2022 175.26 cm 38.4 kg/m2 578195.02 g 97.9 [degF] [facility] & [place] 12/28/2022 15:48:20 Date Recorded Body height Body mass index (BMI) Body weight Body temperature Provider Name and Address Organization Details Last Updated DateTime 09/05/2022 175.26 cm 38.4 kg/m2 501397.02 g 97.9 [degF] Genet Gramajo [facility] & [place] 09/05/2022 10:49:59 Social History Question Answer Notes LastModified by [employer] Details LastModified Time Tobacco Smoking Status Current Every Day Smoker Genet figueroa TOMASZ Gramajo [facility] & [place] 09/05/2022 10:50:23 Do You Have An Advance Directive? No [email or web address] Information not available 09/05/2022 Are You Blind Or Do You Have Difficulty Seeing? No [email or web address] Information not available 09/05/2022 What Was The Date Of Your Most Recent Tobacco Screening? 09/04/2022 [email or web address] Information not available 09/05/2022 How Much Tobacco Do You Smoke? 2 PPD [email or web address] Information not available 09/05/2022 How Many Years Have You Smoked Tobacco? 44 Years [email or web address] Information not available 09/05/2022 Sex: Unknown Functional Status Question Answer Note LastModified by [employer] Details LastModified Time Do you use any illicit or recreational drugs? No [email or web address] Information not available 09/05/2022 What is your level of alcohol consumption? None [email or web address] Information not available 09/05/2022 Do you or have you ever used smokeless tobacco? [id number] [email or web address] Information n ot available 09/05/2022 What is your exercise level? None [email or web address] Information not available 09/05/2022 Mental Status Question Answer Note LastModified by Organization D etails LastModified Time Do you feel stressed (tense, restless, nervous, or anxious, or unable to sleep at night)? [id number] [email or web address] Information not available 09/05/2022 Family History Relationship Description Onset Age of this Age Resolved Age Notes LastModified by Organization Details LastModified Time Mother Disorder of endocrine system pt. added direct ly (09/04) [email or web address] Not available 09/04/2022 16:24:22 Medical History Condition Response Ear or Hearing Problems Y Kidney or Bladder Problems Y Thyroid Problems Y COPD Y Obstructive Sleep Apnea Y Diabetes Y Vision or Eye Problems Y Arthritis Y Back Problems Y Reflux/GERD Y High Cholesterol Y Rheumatoid Arthritis Y Hypertension Y Past Encounters Encounter ID Performer Location Encounter Start Date Encounter Closed Date Diagnosis/Indication Diagnosis SNOMED-CT Code Diagnosis ICD10 Code Diagnosis IMO Codes Diagnosis Note [id number] Iain Eckert Jr, MD [facility] [address] [place], [place] [address]ann [facility] [id number] 09/05/2022 10:16:34 09/05/2022 11:20:47 Hydrocele of testis 80074616 N43.3 patient with history of right-side d [...] call back a desired date of surgery. [id number] Iain Eckert Jr, MD [facility] [address] [place] [address] [employer] [address] 11/30/2022 08:49:28 11/30/2022 09:44:35 Overactive urinary bladder 106606978 N32.81 Patient with a daytime frequency and urgency and nocturia 2-4 times. His risk factors are aging, obesity and drinking significan t amount of caffeine per day. We discussed caffeine cessation and patient placed on a course of Gemtesa. Will see him back in 1 month follow-up. His bladder scan shows only 11 cc residual. Adult hydrocele 12556739 11 9105 N43.3 patient with history of [...] possible fluid aspiration if no improvemen t. [id number] Iain Eckert Jr, MD [facility] [place] [address] 11/13/2022 13:58:02 11/13/2022 14:26:43 Adult hydrocele 0951025896 9105 N43.3 Patient status post hydrocele repair [...] and elevation and heat. Microscopic hematuria 19 8897971 R31.29 patient with microscopi c hematuria on his previous visit and again today. We discussed further workup with CT and cystoscopy . We will discuss further at his follow-up In 2 weeks. Lower urin diya tract symptoms 471290277 R39.9 patient with frequency and nocturia. We discussed further workup on his return with bladder scan. He will continue the tamsulosin for now. [id number] Iain Eckert Jr, MD [facility] TOMASZ WARD [address] 12/28/2022 15:34:36 12/28/2022 16:46:50 Adult hydrocele 7832761217 9105 N43.3 patient with history of right-side [...] and continue scrotal support. Overactive urinary bladder 798581307 N32.81 Patient with a daytime frequency and [...] Name 05/10/2024 1 [employer] (PPO) Noe Silvestre [id number] Noe Silvestre 05/10/2024 [employer] (MEDICARE REPLACEMENT/A DVANTAGE - PPO) Noe Silvestre [id number] Noe Silvestre Notes Date Note Type Note Provider Name and Address Organization Details Recorded Time 09/05/2022 text/html patient is a 62-year-old white male with a history of right-sided hydrocele. States that the hydroceles becoming more bothersome and at is painful when he rolls over at night and crosses his legs. He has previously been seen since at [facility] for the same problem and he elected watch and wait with symptoms are getting worse. Saw Dr. Merida for a small right-sided inguinal hernia and intervention was not recommended. Patient's discomfort more from the right scrotal region. Past history is significant COPD and diabetes. Iain Eckert Jr, MD [address] [place] [address], [address], [place], [address], [facility] 09/05/2022 11:48:58 11/13/2022 text/html Patient is a [...] he would like. Iain Eckert Jr, MD [address] [place] [address], [address], [place], [address], [facility] & [place] 11/13/2022 16:15:54 11/30/2022 text/html 62-year-old white male [...] the day. Iain Eckert Jr, MD [address] [facility], [address], [place], [address], [facility] & [place] 11/30/2022 10:51:33 12/28/2022 text/html ROS as noted [...] success yet. Iain Eckert Jr, MD [address] [facility], [address], [place], [address], [facility] & [place] 12/28/2022 17:23:19
--- OUTSIDE RECORDS SUMMARY | 2025-08-17 16:11 | XMS_ITS | Encounter Summary ---
Author Organization Healthcare Address [address] [place] [address] Care Team Providers Care Annual Giving Director Name Role Phone Nadja Lara MD Primary Care Provider [phone] Ministerio Rosas MD Unavailable [phone] Khadijah Dolan APRN Primary Care Provider [phone] Encounter Details Date Type Department Care Team (Late st Contact Info) Description 05/02/2023 Lab Requisition [facility] [address] [place] [address] Right testicular pain Social History Tobacco Use [...] Info) Description 12/22/2025 8:40 AM EST Appointment [facility] 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
--- OUTSIDE RECORDS SUMMARY | 2025-08-17 16:11 | XMS_ITS | Data Portability ---
Author Organization [facility], [place] Address [address] [place] [address] Care Team Providers Care Cleaning Attendant Name Role Phone LYNN PHELPS Primary Care Provider PROMISE CARRENO Urologist Assessment Encounter Date Assessment Date Assessment LastModified by Organization Details LastModified Time 08/05/2024 08/05/2024 Imaging/Studies Reviewed *LDCT Chest (07/15/2024): multiple subcentimeter nodules left lung Assessment 1. COPD * Full PFT (08/05/2024): moderate obstruction, +midflow obstruction, no restriction, moderately reduced DLCO/VA, + gas trapping, + RAPHAEL response 2.Pulmonary nodules 3. Dyspnea 4. AMALIA 5. Current Heavy smoker 2 ppd x 46 years 6. History of uvulectomy Plan 1. RX Wixela 250 mcg 1 puff twice daily; Rinse mouth after each use; I personally demonstrated use of the inhaled device during todays visit 2. RX Albuterol HFA prn; discussed indications for use 3. Recommend HST -patient currently declines; Will notify office if he changes his mind 4. A1AT *The patient underwent genomic testing for qzrrh-3-mqenlurq sin deficiency in the office today. Oral swab specimen was obtained by the nurse and sent to the lab for testing. 5. Repeat Chest CT in 3 months-next due 10/14/2024; Patient has history of newly diagnosed Bladder cancer that was revealed at the end of todays visit. Original plan was Chest CT in 6 months. Will discuss again with patient at his follow up visit 6. Request previous Chest CT from [facility] for comparison 7. Smoking Cessation-no current desire to quit 8. RTO in 1 month for medication follow up, sooner if needed The patient underwent pulmonary function testing today to evaluate complaints of dyspnea. Results were discussed with the patient. Portions of this note may be dictated using voice recognition software and or use of a medical certification specialist. Variances in spelling and vocabulary are possible and unintentional. Not all errors are caught/corrected . Please notify the author if any discrepancies are noted or if the meaning of any statement is not clear. This is a summary discussion with the patient and in no way is intended to be a verbatum summation of everything discussed. We apologize for any inconvenience. Not available 08/06/2024 10:40:20 09/01/2024 09/01/2024 Imaging/Studies Reviewed *LDCT Chest (07/15/2024): multiple subcentimeter nodules left lung Assessment 1. COPD * Full PFT (08/05/2024): moderate obstruction, +midflow obstruction, no restriction, moderately reduced DLCO/VA, + gas trapping, + RAPHAEL response *A1AT Phenotype (08/05/2024): M/M 2.Pulmonary nodules 3. Dyspnea 4. AMALIA (untreated) 5. Current Heavy smoker 2 ppd x 46 years 6. History of uvulectomy Plan 1. Stop Wixela due to anxiousness; RX Stiolto Respimat 2 puffs daily; I personally demonstrated use of the inhaled device during todays visit 2. Continue Albuterol HFA prn; discussed indications for use 3. Recommend HST -patient currently declines; Will notify office if he changes his mind 4. Repeat Chest CT in 3 months-next due 10/14/2024; Patient has history Bladder cancer sine 2022. BCG treatment on hold due to shortage of medication. 5. Smoking Cessation-no current desire to quit 6. RTO in October for CT Chest Results, sooner if needed Portions of this note may be dictated using voice recognition software and or use of a medical certification specialist. Variances in spelling and vocabulary are possible and unintentional. Not all errors are caught/corrected . Please notify the author if any discrepancies are noted or if the meaning of any statement is not clear. This is a summary discussion with the patient and in no way is intended to be a verbatum summation of everything discussed. We apologize for any inconvenience. Not available 09/02/2024 21:15:10 11/06/2024 11/06/2024 Imaging/Studies Reviewed *LDCT Chest (07/15/2024): multiple subcentimeter nodules left lung *Chest CT (10/21/2024): chronic bronchitis and diffuse small airway disease likely secondary to patients tobacco use, there is no evidence of acute intrathoracic process, dense coronary artery calcifications; mild emphysema with a stable 1.2 cm elliptical opacity within the lingula this is likely secondary to fibrosis, osteopenia Assessment 1. COPD * Full PFT (08/05/2024): moderate obstruction, +midflow obstruction, no restriction, moderately reduced DLCO/VA, + gas trapping, + RAPHAEL response *A1AT Phenotype (08/05/2024): M/M 2.Pulmonary nodules 3. Dyspnea 4. AMALIA (untreated) 5. Current Heavy smoker 2 ppd x 46 years 6. History of uvulectomy Plan 1. Continue Stiolto Respimat 2 puffs daily *Wixela discontinued due to anxiousness 2. Continue Albuterol HFA prn; discussed indications for use 3. Recommend HST -patient currently declines; Will notify office if he changes his mind 4. Repeat Chest CT in 6 months-next due Patient has history Bladder cancer sine 2022. BCG treatment on hold due to shortage of medication. 5. Order Nodify Lung nodule testing (Home Draw) 6. Smoking Cessation-no current desire to quit 7. RTO in 2 weeks for Nodify results, sooner if needed (tickler set) [email or web address] Not available 11/07/2024 09:24:35 Plan of Treatment Reminders Order Date Submit Date Provider Last Modified By Organization Details Last Modified Time Details Appointments None recorded. Lab lung cancer multigene analysis, blood or tissue - 1.2 cm nodule LLL No spiculation no cancer history current smoker Home draw 2024 025 [email or web address] 6 [facility], [address] [place] [address], [place], [address], 10:25:20 Referral None recorded. Procedures None recorded. Surgeries None recorded. Imaging CT, chest, w/o contrast - Patient request to complete at [facility]; Please fax results to ; Patient has hx bladder cancer, current BCG treatment on hold due to shortage. Evaluate pulmonary nodules. 2023 [email or web address] 6 [facility], [address] [place], [address], 4 09:13:30 Medication Orders Stiolto Respimat 2.5 mcg-2.5 mcg/actuati on solution for inhalation 2023 [facility], [address] [place] [address], [address], 4 16:12:10 albuterol sulfate HFA 90 mcg/actuati on aerosol inhaler 2023 [facility], [address] [place] [address], [address], 4 15:58:13 Wixela Inhub 250 mcg-50 mcg/dose powder for inhalation 2023 [facility], [address] [place] [address], [address], 4 15:58:13 Patient TargetsNo targets recorded. Patient Instructions Encounter Date Encounter Id Patient Instructions Last Modified By Organization Details Last Modified Time 09/01/[id number] Smoking cessatio n was discussed with the patient for less than 10 minutes. The detrimental effects to the patient's health of continued smoking was explained. Methods to quit smoking were also discussed to include nicotine replacement therapy and pharmacologic treatment. Not available 09/02/2024 21:11:43 11/06/[id number] Smoking cessatio n was discussed with the patient for less than 10 minutes. The detrimental effects to the patient's health of continued smoking was explained. Methods to quit smoking were also discussed to include nicotine replacement therapy and pharmacologic treatment. Not available 11/07/2024 09:25:23 Reason for Referral None Reported. Results Created Date Observation Date Name Description Value Unit Range Abnormal Flag Note LastModifiedBy Organization Detail LastModifiedTime 08/06/2011/28/2019 CT, heart , w/o contr ast, w/ coron diya calci um score No observ ation record ed. [email or web address] Not Available 08/06 10:40:02 08/06/20 24 12/05/2019 CT, abdom en, w/o contr ast No observ ation record ed. [email or web address] Not Available 08/06 10:45:45 08/06/2001/29/2023 LDCT, chest , for lung cance r scree kelsey No observ ation record ed. [email or web address] Not Available 08/06 10:44:41 08/06/2005/30/2022 CT, angio gram, lower extre mity, w/wo contr ast No observ ation record ed. [email or web address] Not Available 08/06 10:43:21 08/06/20 24 07/15/2024 LDCT, chest , for lung cance r scree kelsey No observ ation record ed. [email or web address] Not Available 07/22 09:48:56 08/06/2001/29/2023 LDCT, chest , for lung cance r scree kelsey No observ ation record ed. [email or web address] Not Available 08/28 14:50:30 10/24/19 25 10/21/2024 CT, chest , w/o contr ast No observ ation record ed. [email or web address] [facility] [place], [address], 10/27/2024 11:37:06 Result Notes None recorded. Problems Name Problem SNOMED Code Status Onset Date Resolution Date Notes Provider Name and Address Organization Details Recorded Time Chronic obstructive pulmonary disease 24887112 Active 2023 Naomie Gee NP [address], [place], [address], [facility] - [facility] 15:53:24 Multiple nodules of lung 565301538 Active 2023 Naomie Gee NP [address], [place], [address], [place] - [facility] 4 10:40:36 Dyspnea 193225289 Active 2023 Naomie Gee NP [address], [place], [address], [place] - [facility] 4 10:40:43 Obstructive sleep apnea syndrome 02835641 Active 2023 Naomie Gee NP [address], [place], [address], [place] - [facility] 4 10:40:49 Heavy tobacco smoker 9669549069411 03 Active 2023 Naomie Gee NP [address], [place], [address], [place] - [facility] 10:40:56 Problem Notes None recorded. Procedures Surgical History Date Name Laterality Status Provider Name and Address Organization Details Recorded Time procedure on kidney completed rashad rios [place] - [facility] 15:36:32 Excision of uvula completed latasha herring [place] - [facility] 15:36:46 Elbow arthroscopy completed latasha herring [place] - [facility] 4 15:37:03 esophagogastroduodenoscopy completed latasha herring [place] - [facility] 15:37:14 Colonoscopy completed latasha herring [place] - [facility] 15:37:20 cardiac catheterization completed geo herring [place] - [facility] 15:37:30 Appendectomy completed latasha herring [place] - [facility] 15:37:40 Carpal tunnel surgery completed satinder herring [place] - [facility] 15:37:56 complete repair of r otator cuff completed latasha herring [place] - [facility] 4 15:38:11 operation on urinary bladder complet ed latashabrandi herring [place] - [facility] 4 15:38:27 Back Surgery completed latasha herring [place] - [facility] 4 15:38:55 vasectomy completed latasha [place]ring [place] - [facility] 4 15:39:14 testis excision completed latasha herring [place] - [facility] 4 15:39:44 procedure on finger completed rashad rios [place] - [facility] 15:40:03 Imaging Results None recorded. Procedure Notes None recorded. Medical Equipment None Reported. Allergies Allergen ID Allergen Name Allergen Category Reaction Reaction Severity Criticality Documentation Date Start Date Code Code System Note Provider Name and Address Organization Details Recorded Time 05662 Product containin g penicilli n (product) medicatio n Not available Not available Not available 08/01/2024 84848 8001 SNOMED latasha herring [facility], [place] - [facility] 15:33:20 Medications Name Sig Start Date Stop Date Status Note LastModified by Organization Details LastModified Time doxycycline hyclate 100 mg capsule TAKE (1) CAPSULE BY MOUTH TWICE DAILY. 08/05 completed Not Available Not Available Not Available clindamycin HCl 300 mg capsule TAKE 1 CAPSULE BY MOUTH THREE (3) TIMES DAILY active Not Available Not Available No t Available ammonium lactate 12 % lotion APPLY TO BILATERAL ELBOWS TWICE DAILY 09/01 completed Not Available Not Available Not Available atorvastati n 10 mg tablet TAKE 1 TABLET BY MOUTH EVERY DAY active Not Available Not Available No t Available glipizide 10 mg tablet TAKE 1 TABLET BY MOUTH ONCE A DAY. 08/05 completed Not Available Not Available Not Available prednisone 5 mg tablet TAKE 1 TABLET BY MOUTH ONCE A DAY. 08/05 completed Not Available Not Available Not Available ciprofloxac in 500 mg tablet TAKE 1 TABLET BY MOUTH TWICE DAILY 08/05 completed Not Available Not Available Not Available sulfamethox azole 800 mg-trimetho prim 160 mg tablet TAKE (1) TABLET BY MOUTH TWICE A DAY. 08/05 completed Not Available Not Available Not Available omeprazole 40 mg capsule,del ayed release TAKE 1 CAPSULE BY MOUTH EVERY DAY active Not Available Not Available No t Available ondansetron 8 mg disintegrat ing tablet DISSOLVE 1 TABLET BY MOUTH EVERY 8 HOURS IF NEEDED FOR NAUSEA OR VOMITING FOR UP TO 7 DAYS 08/05 completed Not Available Not Available Not Available bisoprolol fumarate 5 mg tablet TAKE 1 TABLET BY MOUTH EVERY DAY 09/01 completed Not Available Not Available Not Available famotidine 20 mg tablet TAKE 1 TABLET BY MOUTH EVERY DAY active Not Available Not Available No t Available tamsulosin 0.4 mg capsule TAKE ONE (1) CAPSULE BY MOUTH EVERY DAY WITH DINNER active Not Available Not Available No t Available hydrocodone 7.5 mg-acetamin ophen 325 mg tablet TAKE ONE (1) TABLET BY MOUTH THREE TO FOUR TIMES A DAY 08/05 completed Not Available Not Available Not Available cephalexin 500 mg capsule TAKE 1 CAPSULE BY MOUTH TWICE DAILY active Not Available Not Available No t Available nicotine 21 mg/24 hr daily transdermal patch APPLY ONE (1) PATCH EVERY DAY BY TRANSDERM AL ROUTE. 09/01 completed Not Available Not Available Not Available levothyroxi ne 200 mcg tablet TAKE ONE (1) TABLET BY MOUTH EVERY DAY active Not Available Not Available No t Available ergocalcife rol (vitamin D2) 1,250 mcg (50,000 unit) capsule TAKE 1 CAPSULE BY MOUTH ONCE A WEEK active Not Available Not Available No t Available albuterol sulfate HFA 90 mcg/actuati on aerosol inhaler INHALE TWO (2) PUFFS EVERY FOUR (4) HOURS BY INHALATIO N ROUTE NEEDED FOR 30 DAYS. active Not Available Not Available No t Available lisinopril 40 mg tablet TAKE ONE (1) TABLET BY MOUTH EVERY DAY active Not Available Not Available No t Available cefdinir 300 mg capsule TAKE (1) CAPSULE BY MOUTH TWICE DAILY. 08/05 completed Not Available Not Available Not Available fluticasone propionate 50 mcg/actuati on nasal spray,suspe nsion USE 1 SPRAY IN EACH NOSTRIL ONCE DAILY. active Not Available Not Available No t Available metformin ER 500 mg tablet,exte nded release 24 hr TAKE 2 TABLETS BY MOUTH TWICE DAILY active Not Available Not Available No t Available nitrofurant oin monohydrate /macrocryst als 100 mg capsule TAKE ONE (1) CAPSULE (100 MG) BY MOUTH TWO (2) (TWO) TIMES A DAY. 08/05 completed Not Available Not Available Not Available duloxetine 30 mg capsule,del ayed release TAKE ONE (1) CAPSULE EVERY DAY BY ORAL ROUTE. active Not Available Not Available No t Available pregabalin 75 mg capsule TAKE ONE (1) CAPSULE EVERY DAY BY ORAL ROUTE FOR 30 DAYS. active Not Available Not Available No t Available pregabalin 150 mg capsule TAKE ONE (1) CAPSULE BY MOUTH TWICE A DAY 09/01 completed Not Available Not Available Not Available pregabalin 300 mg capsule TAKE 1 CAPSULE BY MOUTH TWICE DAILY FOR 30 DAYS 08/05 completed Not Available Not Available Not Available BD Ultra-Fine Short Pen Needle 31 gauge x 5/16 USE DIRECTED active Not Available Not Available No t Available fenofibrate nanocrystal lized 145 mg tablet TAKE 1 TABLET BY MOUTH ONCE A DAY. 08/05 completed Not Available Not Available Not Available Lantus Solostar U-100 Insulin 100 unit/mL (3 mL) subcutaneou s pen INJECT FIVE (5) UNITS EVERY DAY BY SUBCUTANE OUS ROUTE AT BEDTIME.* PEN EXPIRES IN 28 DAYS active Not Available Not Available No t Available diclofenac 1 % topical gel APPLY TWO (2) GRAMS TO THE AFFECTED AREA(S) BY TOPICAL ROUTE THREE (3) TIMES PER DAY 08/05 completed Not Available Not Available Not Available venlafaxine ER 225 mg tablet,exte nded release 24 hr TAKE 1 TABLET BY MOUTH EVERY DAY active Not Available Not Available No t Available Stiolto Respimat 2.5 mcg-2.5 mcg/actuati on solution for inhalation INHALE TWO (2) PUFFS EVERY DAY BY INHALATIO N ROUTE FOR 30 DAYS. active Not Available Not Available No t Available Wixela Inhub 250 mcg-50 mcg/dose powder for inhalation INHALE ONE (1) PUFF TWICE A DAY BY INHALATIO N ROUTE FOR 30 DAYS. active Not Available Not Available No t Available Mounjaro 5 mg/0.5 mL subcutaneou s pen injector INJECT FIVE (5) MG EVERY WEEK BY SUBCUTANE OUS ROUTE. 08/05 completed Not Available Not Available Not Available Mounjaro 2.5 mg/0.5 mL subcutaneou s pen injector INJECT TWO AND A HALF (2 & 1/2) MG EVERY WEEK BY SUBCUTANE OUS ROUTE. 08/05 completed Not Available Not Available Not Available FreeStyle Noemi 3 Sensor device USE DIRECTED PER MD INSTRUCTI ON CHANGING EVERY 14 DAYS active Not Available Not Available No t Available FreeStyle Noemi 3 Vermilion USE DIRECTED PER MD OFFICE active Not Available Not Available No t Available Vitals Date Recorded Body height Body mass index (BMI) Body weight Provider Name and Address Organization Details Last Updated DateTime 11/06/2024 175.26 cm 31 kg/m2 14298.4 g ryne stef[place] [facility] 11/06/2024 14:57:17 Date Recorded Body weight Body mass index (BMI) Body height Oxygen saturation Oxygen saturation in Arterial blood by Pulse oximetry Heart rate Respiratory rate Body temperature Systolic And Diastolic Provider Name and Address Organization Details Last Updated DateTime 4 843266. 69 g 33.1 kg/m2 175.26 cm 97 % 97 % 68 /min 20 /min 97.3 [degF] 148/88 mm[Hg] latasha herring [place] - [facility] 15:14:00 Date Recorded Body height Body mass index (BMI) Body weight Oxygen saturation Oxygen saturation in Arterial blood by Pulse oximetry Heart rate Respiratory rate Body temperature Systolic And Diastolic Provider Name and Address Organization Details Last Updated DateTime 175.26 cm 31 kg/m2 33533.4 g 96 % 96 % 79 /min 20 /min 97.1 [degF] 132/82 mm[Hg] latasha herring [place] - [facility] 15:50:34 Social History Question Answer Notes LastModified by Organizat ion Details LastModified Time Tobacco Smoking Status Current Every Day Smoker latasha herring [place], [place] - [facility] 08/01/2024 15:35:57 Do You Have An Advance Directive? No Information not available 08/05/2024 Is Your Home Air Conditioned? Yes [email or web address] Information not available 08/05/2024 Where Do You Live? SingleLevelHouse Information not available 08/05/2024 Do You Have A Medical Power Of Telecommunicator? No [email or web address] Information not available 08/01/2024 What Was The Date Of Your Most Recent Tobacco Screening? 11/06/2024 [email or web address] Information not available 11/06/2024 What Is Your Current Pack Years? 30ormorepackyears [email or web address] Information no t available 08/01/2024 Do You Have Any Pets? Yes 2 Dogs [email or web address] Information not available 08/05/2024 What Is Your Relationship Status? [email or web address] Information not available 08/01/2024 At What Age Did You Start Smoking Tobacco? 14 [email or web address] Information not available 08/05/2024 Are There Any Smokers In Your House? Yes [email or web address] Information not available 08/01/2024 How Much Tobacco Do You Smoke? 2 PPD Information not available 08/01/2024 Has Tobacco Cessation Counseling Been Provided? Yes [email or web address] Information not available 08/05/2024 On What Date Was Tobacco Cessation Counseling Provided? 11/06/2024 [email or web address] Information not available 11/06/2024 How Many Years Have You Smoked Tobacco? 50 [email or web address] Information not available 08/05/2024 Have You Recently Traveled Abroad? No [email or web address] Information not available 08/05/2024 Are You Currently In School? No [email or web address] Information not available 08/05/2024 Sex: Unknown Functional Status Question Answer Note LastModified by Organizat ion Details LastModified Time Do you or have you ever used any other forms of tobacco or nicotine? Yes [email or web address] Information not available 08/05/2024 Do you or have you ever used smokeless tobacco? Current snuff user [email or web address] Information not available 08/05/2024 Are you currently employed? No Disabled [email or web address] Information not available 08/05/2024 Do you or have you ever used e-cigarettes or vape? Never used electronic cigarettes Information not available 08/05/2024 Mental Status None recorded. Family History Relationship Description Onset Age of this Age Resolved Age Notes LastModified by Organization Details LastModified Time Mother Arthritis [email or web address] Not availa ble 08/01/2024 15:34:40 Mother Allergy [email or web address] Not availabl e 08/05/2024 15:48:51 Mother Malignant neoplastic disease Not available 08/05 15:49:04 Mother Chronic obstructive pulmonary disease [email or web address] Not available 08/05 15:49:21 Mother Emphysema [email or web address] Not availa ble 08/05/2024 15:49:31 Mother Restless legs syndrome [email or web address] Not available 08/05 15:49:54 Father Hypertensive disorder Not available 08/01 15:34:49 Father Allergy [email or web address] Not availabl e 08/05/2024 15:48:51 Father Chronic obstructive pulmonary disease [email or web address] Not available 08/05 15:49:21 Father Heart disease [email or web address] Not available 08/05 15:49:44 Sister Chronic obstructive pulmonary disease [email or web address] Not available 08/05 15:49:21 Sister Heart disease [email or web address] Not available 08/05 15:49:44 Medical History Condition Response Thyroid Disease Y Depression Y COPD Y Arthritis Y Acid Reflux (GERD) Y Cancer Y High Cholesterol Y Diabetes Y Sleep Apnea Y Hypertension Y Past Encounters Encounter ID Performer Location Encounter Start Date Encounter Closed Date Diagnosis/Indication Diagnosis SNOMED-CT Code Diagnosis ICD10 Code Diagnosis IMO Codes Diagnosis Note [id number] David Covington [address] [place] [address] [place] [address] 08/05/2024 14:35:42 08/05/2024 16:13:09 Chronic obstructive pulmonary disease 89111024 J44.9 Dyspnea 841468151 R06.00 Heavy tobacco smoker 925 6975859 97076 Z72.0 Multiple n odules of lung 174684428 R91.8 Obstructiv e sleep apnea syndrome 19157153 G47.33 [id number] David Covington DO [address] [place] [address] 09/01/2024 15:44:57 09/01/2024 16:16:28 Chronic obstructive pulmonary disease 39488568 J44.9 Dyspnea 285852921 R06.00 Heavy tobacco smoker 448 4358456 41217 Z72.0 Multiple n odules of lung 845331299 R91.8 Obstructiv e sleep apnea syndrome 68259431 G47.33 [id number] David Covington DO [place] [facility] [address] [facility] [place] [address] 11/06/2024 14:55:14 11/07/2024 15:18:23 Chronic obstructive pulmonary disease 59663232 J44.9 Dyspnea 658026325 R06.00 Heavy tobacco smoker 839 1841877 38423 Z72.0 Multiple n odules of lung 446229451 R91.8 Obstructiv e sleep apnea syndrome 02585529 G47.33 Health Concerns Section Related Observation LastModified by Organization Detai ls LastModified Time None Recorded Concern Status LastModified by Organization Details LastModified Time None Recorded Advance Directives Directive N: Payers Insurance Date Sequence Insurance Name Policy Number Policy Laguerre Covered Member ID Laguerre Member ID Guarantor Name 11/05/2024 1 [employer] (MEDICARE REPLACEMENT/A DVANTAGE - PPO) Noe Silvestre [id number] Noe Silvestre Notes Date Note Type Note Provider Name and Address Organization Details Recorded Time 08/05/2024 text/html ROS as noted in the HPI This 64 year-old male, presents to the office today as a new patient for the evaluation of pulmonary nodules. Chest CT 07/15/2024 showed subcentimeter nodules left lung. Patient reports a history of COPD and AMALIA (untreated).The patient complains of shortness of breath on exertion, fatigue, and occasional wheezing. Patient reports previous use of possibly Breo years ago and is currently out of his Albuterol inhaler. Denies cough or nocturnal respiratory symptoms. Patient has a history of AMALIA but has not used his CPAP machine in the past 4 to 5 years since having his uvula removed. He complains of difficulty falling and staying asleep, frequent napping and snoring. Patient currently smokes 2 packs per day for 46 years with no current desire to quit. The patient also has residential exposure to dogs. Denies any inheritable lung diseases. Denies any fever, chills, nausea, vomiting, or diarrhea. Naomie Gee, MARIJA [address] [place] [address], [id number], [employer] [facility] 08/06/2024 10:42:05 09/01/2024 text/html ROS as noted in the HPI This is a 64 year-old male who presents to the office today for medication follow up and the ongoing management of COPD. Patient denies any significant medical events since his last visit. Patient has been using Wixela 1 puff daily due to feelings of anxiousness with twice daily use. He has been using his Albuterol inhaler daily. Patient reports improved shortness of breath. He denies any wheezing, cough or nocturnal respiratory symptoms. Patient currently smokes 2 packs per day with no current desire to quit. Denies any fever, chills, nausea, vomiting, or diarrhea. Naomie Gee NP [address], [place], [address], [employer] [facility] 09/02/2024 21:15:22 11/06/2024 text/html ROS as noted in the HPI This 64 year-old male returns to the office via telemedicine audio/video CCIQ visit to review the results of a Chest CT completed on 10/21/2024 and medication follow up. The results and proposed treatment plan were discussed with the patient. Patient denies any significant medical events since his last visit. Patient continues Stiolto 2 puffs daily and notes improved shortness of breath, improved wheezing and cough. He denies any nocturnal respiratory symptoms. He denies any recent use of his Albuterol HFA. Patient continues to smoke 2 ppd with no current desire to quit. Denies any fever, chills, nausea, vomiting, or diarrhea. Naomie Gee NP [address], [place], [address], [employer] [facility] 11/07/2024 10:19:31
--- OUTSIDE RECORDS SUMMARY | 2025-08-17 16:11 | XMS_ITS | Encounter Summary ---
Author Organization [employer] ([place], [place], [place], [place]) Address [address] [place] [address] Care Team Providers Care Senior Quality Assurance Specialist Name Role Phone Unavailable Primary Care Provider Unavailabl e Encounter Details Date Type Department Care Team (Late st Contact Info) Description 10/26/2020 Transcribed Document [facility] [place] Family Medicine [facility] [place] [address] ProviderFarhan MD [address] [place] [address] Social History Tobacco Use Types [...] - Historical ProviderMD - 10/26/2020 9:18 AM [employer] PAT Adult Entered On: 10/26/2020 9:22 EST [...] Source : Estimated Height Entry Format : [employer] Height, Feet : 5 ft(Converted to: 152 cm, 60 Inch) Height, Inches : 9 Inch(Converted to: 0 ft 9 Inch, 22.86 cm) Clinical Height : 175.26 cm Weight Source : Standing scale Weight Entry Format : [place] [facility] Dosing Weight : 106.36 kg Weight, Pounds : 234 lb Body Surface Area (BSA) : 2.21 m2 Body Mass Index : 34.6 kg/m2 ([place]) [place] Body Weight : 70 kg Jolene Lino [...] : Yes Spiritual/Cultural Needs Comment : 10/29/20 Religion Preference : Advent Spiritual/Cultural Needs Comment : 10/29/20 Toni Kirby Rn - 10/26/2020 9:18 EST [place] Suicide Severity Rating Scale (C-SSRS) CSSRS Past [...] RN - 10/29/2020 6:56 EST Support Person/Patient Aboriginal Home School Liaison Officer : Yes Support Person/Pt Rep Name : Taylor Silvestre - Support Person/Pt Rep Contact Information : [phone] Want Family/Rep/Phys Notified of Admit : No Toni Kirby Rn - 10/26/2020 9:18 EST Emergency Contact #1 : Taylor Konrad Emergency Contact #1 ` Emergency Contact #1 Relationship : ` Jolene Lino Rn - 10/27/2020 10:51 EST Emergency Contact #2 : ` Emergency Contact #2 Phone Number : ` Emergency Contact #2 Relationship : ` Primary Language : Cook Islander Preferred Communication Mode : Verbal Communication Barrier : None Venetian Blind Machine Operator Needed : No Toni Kirby Rn - [...] : Yes Gender Male : Yes Toni Kiryb Rn - 10/26/2020 9:18 EST Pain Scale [...]
--- OUTSIDE RECORDS SUMMARY | 2025-08-17 16:11 | XMS_ITS | Encounter Summary ---
Author Organization [employer] ([place], [place], [place], [place]) Address [address] [place] [address] Care Team Providers Care Cloth Pattern Maker Name Role Phone Unavailable Primary Care Provider Unavailabl e Encounter Details Date Type Department Care Team (Late st Contact Info) Description 10/29/2020 Transcribed Document [facility] [place] [facility] [place] [address] ProviderFarhan MD [address] [place] [address] Social History Tobacco Use Types [...] - Historical ProviderMD - 10/29/2020 7:06 AM [employer] Admission History, Adult Entered On: 10/29/2020 19:47 [...] Ambulatory Legal Guardian : Unaccompanied Support Person/Patient Audio Technician : Yes Support Person/Pt Rep Name : Taylor Silvestre - Support Person/Pt Rep Contact Information : [phone] Want Family/Rep/Phys Notified of Admit : No Emergency Contact #1 : Taylorwilliam Silvestre Emergency Contact #1 ` Emergency Contact #1 Relationship : ` Emergency Contact #2 : ` Emergency Contact #2 Phone Number : ` Emergency Contact #2 Relationship : ` Primary Language : Portuguese Preferred Communication Mode : Verbal Communication Barrier : None Nitroglycerin Supervisor Needed : No DARIUS VELIZ RN - [...] Scale Risk Level : 25-45 Medium Risk [place] Fall Interventions : Adequate lighting, Assistive devices [...] Source : Estimated Height Entry Format : [place] Height, Feet : 5 ft(Converted to: 152 cm, 60 Inch) Height, Inches : 9 Inch(Converted to: 0 ft 9 Inch, 22.86 cm) Clinical Height : 175.26 cm Weight Source : Standing scale Weight Entry Format : [place] [facility] Dosing Weight : 106.36 kg Weight, Pounds : 234 lb Body Surface Area (BSA) : 2.21 m2 Body Mass Index : 34.6 kg/m2 ([place]) [place] Body Weight : 70 kg DARIUS VELIZ [...] DARIUS VELIZ RN - 10/29/2020 19:45 EST [place] Suicide Severity Rating Scale (C-SSRS) CSSRS Past [...] 10/29/2020 19:45 EST Electronically signed by Kailey [facility] Conversion Retention Manager Cerner at 02/08/2023 12:12 PM CDT documented in this encounter Plan of Treatment Not on file documented as of this encounter Visit Diagnoses Not on filedocumented in this encounter
--- OUTSIDE RECORDS SUMMARY | 2025-08-17 16:11 | XMS_ITS | Encounter Summary ---
Author Organization Healthcare Address [address] [place] [address] Care Team Providers Care Modeling Manager Name Role Phone Nadja Lara MD Primary Care Provider [phone] Ministerio Rosas MD Unavailable [phone] Khadijah Dolan APRN Primary Care Provider [phone]- [phone] Encounter Details Date Type Department Care Team (Late st Contact Info) Description 05/02/2023 Lab Requisition [facility] [address] [place] [address] Zulay Garcia PA [address] [phone] Social History Tobacco Use Types Packs/Day Years [...] Info) Description 12/22/2025 8:40 AM EST Appointment [facility] [address] [place] [address] 12/22/2025 10:30 AM EST Office Visit [facility] [address], [address] [place] [phone] Ministerio Rosas MD [address] [phone] documented as of this encounter Visit Diagnoses Not on filedocumented in this encounter Additional Health Concerns Infection Onset Date Last Indicated 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 documented as of this encounter Care Teams Modeling Manager Relationship Specialty Start Date End Date Nadja Lara MD [address] [place], [place] [id number] PCP - General 03/04/21 05/03/25 Khadijah Dolan APRN [address] [place], [place] [id number] PCP - General 05/04/25 Ministerio Rosas MD [address] [address] Surgeon Urology 09/23/24 documented as of this encounter
--- OUTSIDE RECORDS SUMMARY | 2025-08-17 16:11 | XMS_ITS | Encounter Summary ---
Author Organization Healthcare Address [address] [place] [address] Care Team Providers Care Education Liaison Name Role Phone Nadja Lara MD Primary Care Provider [phone]- [phone] Ministerio Rosas MD Unavailable [phone] Khadijah Dolan APRN Primary Care Provider [phone]- [phone] Encounter Details Date Type Department Care Team (Late st Contact Info) Description 05/02/2023 Lab Requisition [facility] [address] [place] [address] Zulay Garcia PA [address] [phone] Right testicular pain Social History Tobacco Use [...] Appointment [facility] [address] [place] [address] 12/22/2025 10:30 AM EST Office Visit [facility] [address], [address] [place] [address] Ministerio Rosas MD [address] [place] [address] documented as of this encounter Procedures Procedure Name Priority Date/Time Associated Diagnosis Comments SURGICAL PATHOLOGY CONSULT Routine 05/02/2023 2:18 PM EDT Right testicular pain documented in this encounter Results * Surgical Pathology Consult (05/02/2023 2:18 PM EDT) Case Report Sugical Pathology Consult Case: [id number] Authorizing Provider: Zulay Garcia PA Collected: 05/02/2023 1418 Ordering Location: [facility] Lab Received: 05/02/2023 1418 Pathologist: Connor Suarez MD Specimen: Testicle, 05/03/2023 5:33 PM EDT [facility] Final Diagnosis OUTSIDE CASE: COLLECTED ON 03/13/2023. A. TESTICLE AND EPIDIDYMIS, RIGHT, EXCISION: - HYDROCELE B. 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 Received along with a corresponding pathology report from [facility] are 6 slide(s) labeled outside case: collected on 03/13/2023. 05/03/2023 5:33 PM EDT [facility] Note: A resident was involved in the service. I attest I examined the relevant preparations for the specimens and confirmed the diagnosis or interpretation. 05/03/2023 5:33 PM EDT [facility] Tissue Testis structure / Unknown 05/02/2023 2:18 PM EDT 05/02/2023 2:18 PM EDT [facility] PATHOLOGY ORDERABLES Fi nal [facility] [address] [place] [address] documented in this encounter Visit Diagnoses Diagnosis Right testicular pain documented in this encounter Additional Health Concerns Infection Onset Date Last Indicated 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 documented as of this encounter Care Teams Education Liaison Relationship Specialty Start Date End Date Nadja Lara MD [address] [place], [place] [id number] PCP - General 03/04/21 05/03/25 Khadijah Dolan APRN [address] [place] [address] PCP - General 05/04/25 Ministerio Rosas MD [address] [facility] [address] [place] [address] Surgeon Urology 09/23/24 documented as of this encounter
--- OUTSIDE RECORDS SUMMARY | 2025-08-17 16:11 | XMS_ITS | Clinical Summary ---
Author Organization [facility] Address [address] [place] [address] Care Team Providers Care Pole Framer Name Role Phone Ministerio Rosas MD Unavailable [phone] Khadijah Dolan APRN Primary Care Provider [phone] Allergies Active Allergy Reactions Criticality Noted Date [...] 23 Active ergocalciferol (Vitamin D-2) 1.25 MG (60474 UT) capsule Active famotidine (Pepcid) 20 MG tablet Take 1 tablet (20 mg) by mouth 1 (one) time each day. Active atorvastatin (Lipitor) 10 MG tablet TAKE 1 TABLET BY MOUTH ONCE A DAY FOR CHOLESTEROL 06/08/20 23 Active fluticasone (Flonase) 50 MCG/ACT nasal spray Administer 2 sprays into each nostril 1 (one) time each day. 03/27/20 23 Active Continuous Blood Gluc Crew Leader Gluing (FreeStyle Noemi 3 [place]) device 02/01/20 24 Active Continuous Blood Gluc [...] Type Department Care Team Description 07/29/[address] [facility] [address] [place] [phone] Zuleyka Escobedo MD 06/23/2025 10:00 AM EDT Office Visit [address] [phone] Ministerio Rosas MD Urothelial carcinoma of bladder without invasion of muscle (Primary Dx) 06/23/2025 7:57 AM EDT - 06/23/2025 11:59 PM EDT Hospital Encounter [facility] [address], [address] [place] [phone] Urothelial carcinoma of bladder without invasion of muscle Discharge Disposition: Home or Self Care 06/23/2025 Travel 06/18/2025 Travel 06/03/[address] [address] Ministerio Rosas MD Confirmed appt 06/02/2025 Orders Only [address] [phone] Kenneth Simpson MD Urothelial carcinoma of bladder without invasion of muscle (Primary Dx) 05/19/[address] [facility] [phone] Ministerio Rosas MD HCN Clinical Concern/Question; HCN [...] Info) Description 12/22/2025 8:40 AM EST Appointment [place] [address] [facility] [address]nd [place] [address] 12/22/2025 10:30 AM EST Office Visit [place] [facility] [address], [address] [place] [address] Ministerio Rosas MD [address] [place] [address] Health Maintenance Due Date Last [...] 2007 Sigmoidoscopy 2007 [facility]-Colorectal Cancer Screening 2007 Lung Cancer Screening Shared Decision Making 2012 [id number] Vaccine (3 - Moderna risk series) 03/14/2021 02/14/2021, 01/17/2021 [facility]-RSV Vaccine: 60+ Years or (1 - Risk 60-74 years 1-dose series) 2022 [facility]-Lung Cancer Screening 11/03/2024 11/03/2023, 08/2023 [facility]-Influenza Vaccine (#1) 06/22/202507/08, 08/01/2023, 09/30/2020, Additional [...] this topic Medical Devices Implanted Type Area Yarn Finisher Device Identifier Shelf Expiration Date Model / [...] carcinoma of bladder without invasion of muscle PET/CT FDG SKULL BASE TO MID THIGH Routine 11/03/2023 1:49 PM EST Urothelial carcinoma of bladder without invasion of [...] no complications Post-procedure interventions: post-procedure instructions given Ministerio Rosas MD UROLOGY ORDERABLES Final Resu lt * Urine Cytology-Clinic Collect (06/23/2025 10:23 AM EDT) Case Report Cytology Case: [id number] Authorizing Provider: Ministerio Rosas MD Collected: 06/23/2025 1023 Ordering Location: [facility] Received: 06/23/2025 1049 Pathologist: Sally Sapp MD Specimen: Urine (Voided), VOIDED URINE 06/24/2025 1:59 PM EDT [facility] Final Diagnosis A. VOIDED URINE - NEGATIVE FOR HIGH GRADE UROTHELIAL CARCINOMA 06/24/2025 1:59 PM EDT [facility] at 1359 EDT Clinical History Urothelial Cancer/Hematu jackie 06/24/2025 1:59 PM EDT [facility] Previous Cancer Yes 1:59 PM EDT [facility] Previous Cancer Primary Site Bladder Cancer 06/24/2025 1:59 PM EDT [facility] Gross Description A. VOIDED URINE 70 ml's yellow fluid processed as thin prep 06/24/2025 1:59 PM EDT [facility] Urine Voided urine specimen / Unknown Non-blood Collection / Unknown 06/23/2025 10:23 AM EDT 06/23/2025 10:49 AM EDT us Ministerio Rosas MD LAB CYTOLOGY ORDERABLES Final Result [facility] [address] [place] [address] * POCT URINALYSIS DIPSTICK (06/23/2025 9:55 AM EDT) POCT Urine Color Yellow 06/23/2025 9:57 AM EDT [facility] POCT Urine Clarity Clear 06/23/2025 9:57 AM EDT [facility] POCT Urine Glucose Negative Negative mg/dL 06/23/2025 9:57 AM EDT [facility] POCT Urine Bilirubin Negative Negative mg/dL 06/23/2025 9:57 AM EDT [facility] POCT Urine Ketones Negative Negative mg/dL 06/23/2025 9:57 AM EDT [facility] POCT Urine Specific [place] 1.010 1.005 - 1.030 06/23/2025 9:57 AM EDT [facility] POCT Urine Blood Negative Negative 06/23/2025 9:57 AM EDT [facility] POCT pH, Urine 6.0 5.0 - 8.0 06/23/2025 9:57 AM EDT [facility] POCT Protein, Urine Negative Negative mg/dL 06/23/2025 9:57 AM EDT [facility] POCT Urobilinogen, Urine 0.2 0.2, 1.0 EU/dL 06/23/2025 9:57 AM EDT [facility] POCT Nitrite, Urine Negative Negative 06/23/2025 9:57 AM EDT [facility] POCT Urine Leukocyte Esterase Negative Negative 06/23/2025 9:57 AM EDT [facility] Urine 06/23/2025 9:55 AM EDT 06/23/2025 9:57 AM EDT us Ministerio Rosas MD LAB POINT OF CARE TE ST DOCKED DEVICE UNSOLICITED RESULTS Final Result Performing Organization Address City/State/[facility] Co de Phone Number [facility] [address], [place] * CT Urogram (06/23/2025 8:30 AM [...] following split bolus administration of IV contrast, [id number], 150 mL. Reformatted images in the coronal [...] IMG CT PROCEDURES Final Resul t * PET/CT FDG Skull Base To Mid Thigh (11/03/2023 1:49 PM EST) Anatomical Region Laterality Modality Nuclear Medicine Narrative 11/06/2023 2:47 PM EST CLINICAL INDICATION: 63-year-old with high-riskinvasive bladder cancer. Patient completed induction BCG. Recent CT urogram with enlarged left para-aortic lymph node. PET/CT obtained to further characterize lymph node. TECHNIQUE: Preparation: Last oral intake (except water) on 11/03/2023 at 0530. Diabetic: Yes. Oral hypoglycemic Blood glucose at time of FDG administration: 198 mg/dL. Radiopharmaceutical: 10.22 mCi of F-18 FDG administered intravenously at right antecubital fossa at 1216. Incubation interval: 50 minutes. Oral contrast: Not applicable. Positioning: Arms raised. PET/CT scanner: Siemens Biograph 40 mCT. PET/CT acquisition: [id number]-thighs. Standardized uptake value (SUV): Corrected for body weight only. CT: Low-dose, [id number]-[id number], without intravenous contrast. TOTAL DLP (Dose Length Product): 1935.46 mGy cm. COMPARISON/CORRELATION: No comparison. CT urogram 06/29/2023. CT chest 06/01/2023. FINDINGS: Technical quality: Altered biodistribution. Measurements: Unless otherwise specified, all SUVs refer to maximum value in the target (mSUV). Reference: mean SUV liver: 2.25. CT linear measurements performed on axial images. Head and Neck: Focal moderate uptake fusing to a 0.8 cm left intraparotid node/nodule maximum SUV of 4.8 may represents intraparotid lymph node or benign etiology such as pleomorphic adenoma or Warthin tumor. Otherwise, no suspicious metabolically active lesions within the head and neck. No other FDG avid or enlarged cervical lymph nodes. Physiologic FDG uptake of the brain is noted. No acute intracranial abnormality. Global brain parenchymal atrophy seen. Unremarkable thyroid gland. Chest: No suspicious metabolically active lesions within the chest. No FDG avid or suspicious pulmonary nodule. Bibasilar lungs atelectasis. Centrilobular lung emphysema. No suspicious metabolically active or pathologically enlarged hilar or mediastinal adenopathy. Calcified right hilar lymph nodes. Thoracic aorta is in normal caliber. Coronary atherosclerotic disease. No pleural or pericardial effusion. Abdomen and Pelvis: Slight increased size of 2.2 cm left para-aortic node with moderate to intense uptake, maximum SUV 4.7 (series 13, image 206), previously 1.8 cm. Additionally there is heterogeneous enhancement and FDG excretion of left kidney. Bilateral fatty stranding of the kidney left greater than right. No evidence of hydronephrosis. Right kidney is unremarkable. No evidence of prostatomegaly. Similar appearance of asymmetric thickening of the right lateral border of the urinary bladder. Solid Abdominal Organs: No focal hypermetabolic activity in the liver significantly greater than the heterogeneous physiologic uptake. Unremarkable noncontrast appearance of the liver. Normal gallbladder. Unremarkable spleen. No suspicious adrenal masses. No suspicious pancreatic findings. GI Tract/Mesentery/Peritoneum: Physiologic bowel activity, without suspicious focal FDG uptake. The large and small bowel appear normal in caliber. No suspicious peritoneal/mesenteric findings. Moderate calcific atherosclerotic disease. Abdominal aorta is in normal caliber. No fluid collection or drainable ascites. Skeleton and Soft Tissues: Postsurgical changes related to posterior fixation L3-L5 with increased sclerosis at the level of the endplates. No suspicious metabolically active osseous or soft tissue lesions. No aggressive lytic or sclerotic lesions. Multilevel degenerative changes. IMPRESSION: 1. Slight increased size of 1.8 x 2.2 cm left para-aortic node with moderate to intense uptake. Recommend tissue sampling for definitive diagnosis. 2. Compared to right side, inhomogeneous appearance of the left kidney with increased perirenal further evaluation is recommended. 3. Similar appearance of asymmetric thickening of the right lateral border of the urinary bladder consistent with known primary cancer. This is not well evaluated on PET imaging due to FDG avid excretion in the bladder. 4. Focal of hypermetabolic activity within the left parotid gland is indeterminant may represents intraparotid lymph node, pleomorphic adenoma or Warthin tumor. CRITICAL RESULT: No. COMMUNICATION: Per this written report. By electronically signing this report, I, the attending physician, attest that I have personally reviewed the images/data for the above examination(s) and agree with the final edited report. Drafted by Kevin Reyez MD on 11/06/2023 11:44 AM Final report signed by Gideon Sheridan MD on 11/06/2023 2:47 PM Procedure Note Gideon Sheridan MD - 11/06/2023 CLINICAL INDICATION: 63-year-old with high-riskinvasive bladder cancer. Patient completedinduction BCG. Recent CT urogram with enlarged left para-aortic lymphnode. PET/CT obtained to further characterize lymph node. TECHNIQUE: Preparation: Last oral intake (except water) on 11/03/2023 at 0530. Diabetic: Yes. Oral hypoglycemic Blood glucose at time of FDG administration: 198 mg/dL. Radiopharmaceutical: 10.22 mCi of F-18 FDG administered intravenously atright antecubital fossa at 1216. Incubation interval: 50 minutes. Oral contrast: Not applicable. Positioning: Arms raised. PET/CT scanner: Siemens Biograph 40 mCT. PET/CT acquisition: [id number]-si-ehf-thighs. Standardized uptake value (SUV): Corrected for body weight only. CT: Low-dose, wun-mcfolx-ioft, without intravenous contrast. TOTAL DLP (Dose Length Product): 1935.46 mGy cm. COMPARISON/CORRELATION: No comparison. CT urogram 06/29/2023. CT chest 06/01/2023. FINDINGS: Technical quality: Altered biodistribution. Measurements: Unless otherwise specified, all SUVs refer to maximum valuein the target (mSUV). Reference: mean SUV liver: 2.25. CT linear measurements performed on axial images. Head and Neck: Focal moderate uptake fusing to a 0.8 cm left intraparotid node/nodulemaximum SUV of 4.8 may represents intraparotid lymph node or benignetiology such as pleomorphic adenoma or Warthin tumor. Otherwise, no suspicious metabolically active lesions within the head andneck. No other FDG avid or enlarged cervical lymph nodes. Physiologic FDG uptake of the brain is noted. No acute intracranialabnormality. Global brain parenchymal atrophy seen. Unremarkable thyroid gland. Chest: No suspicious metabolically active lesions within the chest. No FDG avid or suspicious pulmonary nodule. Bibasilar lungs atelectasis.Centrilobular lung emphysema. No suspicious metabolically active or pathologically enlarged hilar ormediastinal adenopathy. Calcified right hilar lymph nodes. Thoracic aorta is in normal caliber. Coronary atherosclerotic disease. Nopleural or pericardial effusion. Abdomen and Pelvis: Slight increased size of 2.2 cm left para-aortic node with moderate tointense uptake, maximum SUV 4.7 (series 13, image 206), previously 1.8cm. Additionally there is heterogeneous enhancement and FDG excretion of leftkidney. Bilateral fatty stranding of the kidney left greater than right.No evidence of hydronephrosis. Right kidney is unremarkable. No evidence of prostatomegaly. Similar appearance of asymmetric thickening of the right lateral border ofthe urinary bladder. Solid Abdominal Organs: No focal hypermetabolic activity in the liversignificantly greater than the heterogeneous physiologic uptake.Unremarkable noncontrast appearance of the liver. Normal gallbladder.Unremarkable spleen. No suspicious adrenal masses. No suspiciouspancreatic findings. GI Tract/Mesentery/Peritoneum: Physiologic bowel activity, withoutsuspicious focal FDG uptake. The large and small bowel appear normal incaliber. No suspicious peritoneal/mesenteric findings. Moderate calcific atherosclerotic disease. Abdominal aorta is in normalcaliber. No fluid collection or drainable ascites. Skeleton and Soft Tissues: Postsurgical changes related to posterior fixation L3-L5 with increasedsclerosis at the level of the endplates. No suspicious metabolicallyactive osseous or soft tissue lesions. No aggressive lytic or sclerotic lesions. Multilevel degenerative changes. IMPRESSION: 1. Slight increased size of 1.8 x 2.2 cm left para-aortic node withmoderate to intense uptake. Recommend tissue sampling for definitivediagnosis. 2. Compared to right side, inhomogeneous appearance of the left kidneywith increased perirenal further evaluation is recommended. 3. Similar appearance of asymmetric thickening of the right lateral borderof the urinary bladder consistent with known primary cancer. This is notwell evaluated on PET imaging due to FDG avid excretion in the bladder. 4. Focal of hypermetabolic activity within the left parotid gland isindeterminant may represents intraparotid lymph node, pleomorphic adenomaor Warthin tumor. CRITICAL RESULT: No. COMMUNICATION: Per this written report. By electronically signing this report, I, the attending physician, frankieat I have personally reviewed the images/data for the aboveexamination(s) and agree with the final edited report. 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 Yes Care Teams Pole Framer Relationship Specialty Start Date End Date Khadijah Dolan APRN [address] [place] [address] PCP - General 05/04/25 Ministerio Rosas MD [address] [phone] Surgeon Urology 09/23/24
--- OUTSIDE RECORDS SUMMARY | 2025-08-17 16:11 | XMS_ITS | Encounter Summary ---
Author Organization [facility] Address [address] [place] [address] Care Team Providers Care Shank Taper Name Role Phone Nadja Lara MD Primary Care Provider [phone] Ministerio Rosas MD Unavailable [phone] Khadijah Dolan APRN Primary Care Provider [phone] Encounter Details Date Type Department Care Team (Late st Contact Info) Description 03/05/2023 Orders Only External Location [address] [place] [address] Yared Salgado MD [address] [place] [address] Social History Tobacco Use Types Packs/Day Years [...] Info) Description 12/22/2025 8:40 AM EST Appointment [facility] [address] [place] [address] 12/22/2025 10:30 AM EST Office Visit [facility] [address], [address] [place] [address] Ministerio Rosas MD [address] [place] [address] documented as of this encounter Procedures Procedure [...] documented as of this encounter Care Teams Shank Taper Relationship Specialty Start Date End Date Nadja Lara MD [address] [place] [phone] PCP - General 03/04/21 05/03/25 Khadijah Dolan APRN [address] [place] [address] PCP - General 05/04/25 Ministerio Rosas MD [address] [facility] [address] [place] [address] Surgeon Urology 09/23/24 documented as of this encounter
--- OUTSIDE RECORDS SUMMARY | 2025-08-17 16:11 | XMS_ITS ---
Author Organization [facility] Address [address] [place] [address] Care Team Providers Care Inward Toll Operator Name Role Phone Ministerio Rosas MD Unavailable [phone] Khadijah Dolan APRN Primary Care Provider [phone] Active Problems Problem Noted Date Diagnosed Date [...]
--- OUTSIDE RECORDS SUMMARY | 2025-08-17 16:11 | XMS_ITS | Clinical Summary ---
Author Organization [employer] ([place], [place], [place], [place]) Address [address] [place] [address] Care Team Providers Care Kettle Firer Name Role Phone Unavailable Primary Care Provider [...] Date Keyon rded Speak language other than Portuguese at home Not on file 10/30/2023 Want [...]
--- OUTSIDE RECORDS SUMMARY | 2025-08-17 16:11 | XMS_ITS | Encounter Summary ---
Author Organization [facility] Address [address] [place] [address] Care Team Providers Care Medical Doctor Nuclear Medicine Name Role Phone Ministerio Rosas MD Unavailable [phone] Khadijah Dolan APRN Primary Care Provider [phone] Encounter Details Date Type Department Care Team [...] Info) Description 12/22/2025 8:40 AM EST Appointment [facility] [address] [place] [address] 12/22/2025 10:30 AM EST Office Visit [place] [facility] [address], [address] [place] [address] Ministerio Rosas MD [address] [address] documented as of this encounter [...] documented as of this encounter Care Teams Medical Doctor Nuclear Medicine Relationship Specialty Start Date End Date Khadijah Dolan APRN [address] [place] [address] PCP - General 05/04/25 Ministerio Rosas MD [address] [phone] Surgeon Urology 09/23/24 documented as of this encounter
--- OUTSIDE RECORDS SUMMARY | 2025-08-17 16:11 | XMS_ITS | Encounter Summary ---
Author Organization [facility] ([place], [place], [place], [place]) Address [address] [place] [address] Care Team Providers Care Sexual Assault Social Worker Name Role Phone Unavailable Primary Care Provider Unavailabl e Encounter Details Date Type Department Care Team (Late st Contact Info) Description 10/28/2020 Transcribed Document [facility] Family Medicine [address] [place] [address] ProviderFarhan MD [address] [place] [address] Social History Tobacco Use Types [...] - Historical ProviderMD - 10/28/2020 1:52 PM OFFICE REP UM Authorization Entered On: 10/28/2020 13:54 EST Performed On: 10/28/2020 13:52 EST by ROLF LUDWIG RN-Utilization Review Primary Insurance Authorization Authorization and Policy Numbers : Insurance 1 Health Plan: [employer] PPO Policy Number: [id number] Authorization Number: Insurance Primary Name : [employer] [id number] Auth/Referral Contact Name-Primary : Alfredo Casas Authorization [...] or availity as of yet (DERICK SHIPMAN, Roller Operator 10/28/2020 12:39) ROLF LUDWIG, RN-Utilization Review - 10/28/2020 13:52 EST Electronically signed by [facility] Conversion [employer] at 02/08/2023 12:33 PM CDT documented in this encounter Plan of Treatment Not on file documented as of this encounter Visit Diagnoses Not on filedocumented in this encounter
--- OUTSIDE RECORDS SUMMARY | 2025-08-17 16:11 | XMS_ITS | Data Portability ---
Author Organization Critical access hospital Address [address] [place] [address] Care Team Providers Care Hoeing Row Boss Name Role Phone CASSIDY DAVIS Urologist [facility] Pain Management ADDIE VELIZ Orthopedic Surgeon Assessment No assessment recorded. Plan of Treatment Reminders Order Date Submit Date Provider Last Modified By Organization Details Last Modified Time Details Appointments Diabetic F/U 2024 08:00A M Khadijah Dolan, DAVID Not available Not available Not available Lab HbA1c (hemoglob in A1c), blood 2024 025 [facility], [address], [address], [place], [address], 05/29/2025 14:08:00 CMP, serum or plasma 2024 025 MILA [facility], [address], [place], [address], 05/29/2025 14:07:58 CBC w/ auto diff 2024 025 MILA [facility], [address], [place], [address], 05/29/2025 14:07:57 albumin/c reatinine , mass ratio, urine 2024 025 MILA [facility], [address], [place], [address], 05/29/2025 14:07:59 lipid panel, serum 2024 025 [facility], [address], [address], [place], [address], 05/29/2025 14:07:58 testoster one, free + total, serum 2024 025 [facility], [address], [address], [place], [address], 05/29/2025 14:07:59 vitamin B12, serum 2024 025 [facility], [address], [address], [place], [address], 05/29/2025 14:08:01 magnesium , serum or plasma 2024 025 [facility], [address], [address], [place], [address], 05/29/2025 14:08:01 TSH + free T4, serum 2024 025 [facility], [address], [address], [place], [address], 05/29/2025 14:07:56 HbA1c (hemoglob in A1c), blood 2024 025 [facility], [address] [place] [address], [id number], 02/24/2025 08:51:27 CBC w/ auto diff 2024 025 MILA [facility], [address], [address], [place], [address], 11/26/2024 11:07:46 cobalamin and folate panel, serum 2024 025 MILA [facility], [address], [address], [place], [address], 11/26/2024 11:07:46 vitamin D, 25-hydrox y, total, serum 2024 025 [facility], [address], [address], [place], [address], 11/26/2024 11:07:47 TSH + free T4, serum 2024 025 [facility], [address], [address], [place], [address], 11/26/2024 11:07:45 CBC w/ auto diff 2023 024 [facility], [address], [address], [place], [address], 09/23/2024 19:06:29 HbA1c (hemoglob in A1c), blood 2023 024 [facility], [address], [address], [place], [address], 09/23/2024 19:06:30 CMP, serum or plasma 2023 024 [facility], [address], [address], [place], [address], 09/23/2024 19:06:29 C reactive protein, QN, serum or plasma 2023 024 [facility], [address], [address], [place], [address], 09/23/2024 19:06:31 ESR (erythroc yte sedimenta tion rate), blood 2023 024 [facility], [address], [address], [place], [address], 09/23/2024 19:06:30 testoster one, free + total, serum 2023 024 [facility], [address], [address], [place], [address], 09/23/2024 19:06:30 Referral podiatris t referral 2023 024 MILA Malloy DPM, [address] [place], [address], 09/29/2024 11:18:09 cardiolog ist referral 2023 024 MILA Butts MD, [address] [place] [address] [address], [place], [address], 08/26/2024 13:02:43 Procedures None recorded. Surgeries None recorded. Imaging electroca rdiogram 2024 025 [email or web address] [facility], [address] [place], [address], 05/25/2025 09:10:15 Medication Orders metformin ER 500 mg tablet,ex tended release 24 hr 2024 025 [facility], [facility] [address], [place], [address], 05/25/2025 08:46:25 doxycycli ne hyclate 100 mg capsule 2024 025 [facility], [facility] [address], [place], [address], 06/11/2025 05:01:38 mupirocin 2 % topical ointment 2024 025 [facility], [facility] [address], [place], [address], 05/25/2025 08:47:17 levothyro xine 200 mcg tablet 2024 025 [facility], [address] [place] [address], [address], 02/24/2025 08:51:28 Lyrica 75 mg capsule [address], [address], 02/24/2025 08:19:55 clindamyc in HCl 300 mg capsule [address], [address], 11/25/2024 16:38:32 cephalexi n 500 mg capsule [address], [address], 11/25/2024 16:38:32 famotidin e 20 mg tablet [address], [address], 09/22/2024 13:23:28 atorvasta tin 10 mg tablet [address], [address], 09/22/2024 13:23:29 ergocalci ferol (vitamin D2) 1,250 mcg (50,000 unit) capsule [address], [address], 09/22/2024 13:23:29 Lyrica 75 mg capsule [address], [address], 02/24/2025 08:13:05 Lyrica 75 mg capsule 2023 024 [address] [place], [address], 02/24/2025 08:13:05 Patient TargetsNo targets recorded. 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 Hy pertensive disorder Referring Physician: Khadijah Dolan [facility], Encounter Date: 08/25/2024 Die Sinker Referral for Foot ulcer due to type 2 diabetes mellitus Referring Physician: Khadijah Dolan [facility], Encounter Date: 09/22/2024 Results Created Date Observation Date Name Description Value Unit Range Abnormal Flag Note LastModifiedBy Organization Detail LastModifiedTime 05/06/2005/06/2025 COLOG UARD cologuard result Cancel led - Order d not applic able Not Available [facility] [address], [place], [address], 05/06/2025 05:18:23 09/22/2009/23/2024 CBC WITH DIFFE RENTI AL/PL ATELE T WBC 8.8 x10e3 /uL 3.4-10 .8 normal Not Available [facility] ([facility]) [address] [place], [address], 09/23/2024 19:06:29 09/22/20 24 09/23/2024 CBC WITH DIFFE RENTI AL/PL ATELE T RBC 4.39 x10e6 /uL 4.14-5 .80 normal Not Available [facility] ([facility]) [address] [place], [address], 09/23/2024 19:06:29 09/22/20 24 09/23/2024 CBC WITH DIFFE RENTI AL/PL ATELE T hemoglobin 12.2 g/dL 13.0-1 7.7 below low normal Not Available [facility] ([facility]) [address] [facility], [place], [address], 09/23/2024 19:06:29 09/22/20 24 09/23/2024 CBC WITH DIFFE RENTI AL/PL ATELE T hematocrit 38.1 % 37.5-5 1.0 normal Not Available [facility] ([facility]) [address] [place], [address], 09/23/2024 19:06:29 09/22/20 24 09/23/2024 CBC WITH DIFFE RENTI AL/PL ATELE T MCV 87 fL 79-97 normal Not Available [facility] ([facility]) [address] [place], [address], 09/23/2024 19:06:29 09/22/20 24 09/23/2024 CBC WITH DIFFE RENTI AL/PL ATELE T MCH 27.8 pg 26.6-3 3.0 normal Not Available [facility] ([facility]) [address] [place], [address], 09/23/2024 19:06:29 09/22/20 24 09/23/2024 CBC WITH DIFFE RENTI AL/PL ATELE T MCHC 32.0 g/dL 31.5-3 5.7 normal Not Available [facility] ([facility]) [address] [place], [address], 09/23/2024 19:06:29 09/22/20 24 09/23/2024 CBC WITH DIFFE RENTI AL/PL ATELE T RDW 14.1 % 11.6-1 5.4 Not Available [facility] ([facility]) [address] [place], [address], 09/23/2024 19:06:29 09/22/20 24 09/23/2024 CBC WITH DIFFE RENTI AL/PL ATELE T platelets 244 x10e3 /uL 150-45 0 normal Not Available [facility] ([facility]) [address] [facility], [place], [address], 09/23/2024 19:06:29 09/22/20 24 09/23/2024 CBC WITH DIFFE RENTI AL/PL ATELE T neutrophils 70 % not estab. normal Not Available [facility] ([facility]) [address] [facility], [place], [address], 09/23/2024 19:06:29 09/22/20 24 09/23/2024 CBC WITH DIFFE RENTI AL/PL ATELE T lymphs 20 % not estab. normal Not Available [facility] ([facility]) [address] [facility], [place], [address], 09/23/2024 19:06:29 09/22/20 24 09/23/2024 CBC WITH DIFFE RENTI AL/PL ATELE T monocytes 7 % not estab. normal Not Available [facility] ([facility]) [address] [facility], [place], [address], 09/23/2024 19:06:29 09/22/20 24 09/23/2024 CBC WITH DIFFE RENTI AL/PL ATELE T eos 2 % not estab. normal Not Available [facility] ([facility]) [address] [facility], [place], [address], 09/23/2024 19:06:29 09/22/20 24 09/23/2024 CBC WITH DIFFE RENTI AL/PL ATELE T basos 1 % not estab. normal Not Available [facility] ([facility]) [address] [facility], [place], [address], 09/23/2024 19:06:29 09/22/20 24 09/23/2024 CBC WITH DIFFE RENTI AL/PL ATELE T immature cells SENIOR GRAPHIC DESIGNER Not Available [facility] ([facility]) [address] [place], [address], 09/23/2024 19:06:29 09/22/20 24 09/23/2024 CBC WITH DIFFE RENTI AL/PL ATELE T neutrophils (absolute) 6.2 x10e3 /uL 1.4-7. 0 normal Not Available [facility] ([facility]) [address] [place], [address], 09/23/2024 19:06:29 09/22/20 24 09/23/2024 CBC WITH DIFFE RENTI AL/PL ATELE T lymphs (absolute) 1.7 x10e3 /uL 0.7-3. 1 normal Not Available [facility] ([facility]) [address] [place], [address], 09/23/2024 19:06:29 09/22/20 24 09/23/2024 CBC WITH DIFFE RENTI AL/PL ATELE T monocytes(ab solute) 0.6 x10e3 /uL 0.1-0. 9 normal Not Available [facility] ([facility]) [address] [place], [address], 09/23/2024 19:06:29 09/22/20 24 09/23/2024 CBC WITH DIFFE RENTI AL/PL ATELE T eos (absolute) 0.2 x10e3 /uL 0.0-0. 4 normal Not Available [facility] ([facility]) [address] [place], [address], 09/23/2024 19:06:29 09/22/20 24 09/23/2024 CBC WITH DIFFE RENTI AL/PL ATELE T baso (absolute) 0.0 x10e3 /uL 0.0-0. 2 normal Not Available [facility] ([facility]) [address] [place], [address], 09/23/2024 19:06:29 09/22/20 24 09/23/2024 CBC WITH DIFFE RENTI AL/PL ATELE T immature granulocytes 0 % not estab. Not Available [facility] ([facility]) [address] [facility], [place], [address], 09/23/2024 19:06:29 09/22/20 24 09/23/2024 CBC WITH DIFFE RENTI AL/PL ATELE T immature grans (abs) 0.0 x10e3 /uL 0.0-0. 1 Not Available [facility] ([facility]) [address] [facility], [place], [address], 09/23/2024 19:06:29 09/22/20 24 09/23/2024 CBC WITH DIFFE RENTI AL/PL ATELE T NRBC SENIOR GRAPHIC DESIGNER Not Available [facility] ([facility]) [address] [facility], [place], [address], 09/23/2024 19:06:29 09/22/20 24 09/23/2024 CBC WITH DIFFE RENTI AL/PL ATELE T hematology comments: SENIOR GRAPHIC DESIGNER Not Available [facility] ([facility]) [address] [facility], [place], [address], 09/23/2024 19:06:29 09/22/20 24 09/23/2024 COMP. METAB OLIC PANEL (14) glucose 95 mg/dL 70-99 normal Not Available [facility] ([facility]) [address] [facility], [place], [address], 09/23/2024 19:06:29 09/22/20 24 09/23/2024 COMP. METAB OLIC PANEL (14) BUN 18 mg/dL 8-27 normal Not Available [facility] ([facility]) [address] [facility], [place], [address], 09/23/2024 19:06:29 09/22/20 24 09/23/2024 COMP. METAB OLIC PANEL (14) creatinine 1.07 mg/dL 0.76-1 .27 normal Not Available [facility] ([facility]) [address] [place], [address], 09/23/2024 19:06:29 09/22/20 24 09/23/2024 COMP. METAB OLIC PANEL (14) eGFR 78 mL/mi n/1.7 3 >59 normal Not Available [facility] ([facility]) [address] [place], [address], 09/23/2024 19:06:29 09/22/20 24 09/23/2024 COMP. METAB OLIC PANEL (14) BUN/creatini ne ratio 17 10-24 normal Not Available [facility] ([facility]) [address] [facility], [place], [address], 09/23/2024 19:06:29 09/22/20 24 09/23/2024 COMP. METAB OLIC PANEL (14) sodium 135 mmol/ L 134-14 4 normal Not Available [facility] ([facility]) [address] [place], [address], 09/23/2024 19:06:29 09/22/20 24 09/23/2024 COMP. METAB OLIC PANEL (14) potassium 4.2 mmol/ L 3.5-5. 2 normal Not Available [facility] ([facility]) [address] [place], [address], 09/23/2024 19:06:29 09/22/20 24 09/23/2024 COMP. METAB OLIC PANEL (14) chloride 96 mmol/ L 96-106 normal Not Available [facility] ([facility]) [address] [place], [address], 09/23/2024 19:06:29 09/22/20 24 09/23/2024 COMP. METAB OLIC PANEL (14) carbon dioxide, total 24 mmol/ L 20-29 normal Not Available [facility] ([facility]) [address] [place], [address], 09/23/2024 19:06:29 09/22/20 24 09/23/2024 COMP. METAB OLIC PANEL (14) calcium 9.7 mg/dL 8.6-10 .2 normal Not Available [facility] ([facility]) [address] [place], [address], 09/23/2024 19:06:29 09/22/20 24 09/23/2024 COMP. METAB OLIC PANEL (14) protein, total 7.3 g/dL 6.0-8. 5 normal Not Available [facility] ([facility]) [address] [place], [address], 09/23/2024 19:06:29 09/22/20 24 09/23/2024 COMP. METAB OLIC PANEL (14) albumin 4.0 g/dL 3.9-4. 9 normal Not Available [facility] ([facility]) [address] [place], [address], 09/23/2024 19:06:29 09/22/20 24 09/23/2024 COMP. METAB OLIC PANEL (14) globulin, total 3.3 g/dL 1.5-4. 5 Not Available [facility] ([facility]) [address] [place], [address], 09/23/2024 19:06:29 09/22/20 24 09/23/2024 COMP. METAB OLIC PANEL (14) bilirubin, total 0.4 mg/dL 0.0-1. 2 normal Not Available [facility] ([facility]) [address] [place], [address], 09/23/2024 19:06:29 09/22/20 24 09/23/2024 COMP. METAB OLIC PANEL (14) alkaline phosphatase 126 IU/L 44-121 above high normal Not Available [facility] ([facility]) [address] [place], [address], 09/23/2024 19:06:29 09/22/20 24 09/23/2024 COMP. METAB OLIC PANEL (14) AST (SGOT) 7 IU/L 0-40 normal Not Available [facility] ([facility]) [address] [place], [address], 09/23/2024 19:06:29 09/22/20 24 09/23/2024 COMP. METAB OLIC PANEL (14) ALT (SGPT) 7 IU/L 0-44 normal Not Available [facility] ([facility]) [address] [facility], [place], [address], 09/23/2024 19:06:29 09/22/20 24 09/23/2024 TESTO STERO NE,FR EE AND TOTAL testosterone 109 NG/dL 264-91 6 below low normal Adult male refer ence inter andrae is based on a popul ation of healt hy nonob adolph males (BMI <30) betwe en 19 and 39 years old. Travi angi, et.al . JCEM 2017, 102;1 161-1 173. PMID: 74070 103. Not Available [facility] ([facility]) [address] [facility], [place], [address], 09/23/2024 19:06:30 09/22/20 24 09/23/2024 TESTO STERO NE,FR EE AND TOTAL free testosterone (direct) 0.7 pg/mL 6.6-18 .1 below low normal Not Available [facility] ([facility]) [address] [place], [address], 09/23/2024 19:06:30 09/22/20 24 09/23/2024 HEMOG LOBIN A1C hemoglobin A1C 7.0 % 4.8-5. 6 above high normal Predi abete s: 5.7 - 6.4 Diabe dawson: >6.4 Glyce popeye contr ol for adult s with diabe dawson: <7.0 Not Available [facility] ([facility]) [address] [facility], [place], [address], 09/23/2024 19:06:30 09/22/20 24 09/23/2024 SEDIM ENTAT ION RATE- WESTE RGREN sedimentatio n rate-westerg laurie 95 mm/HR 0-30 above high normal Not Available [facility] ([facility]) [address] [facility], [place], [address], 09/23/2024 19:06:30 09/22/20 24 09/23/2024 C-SAVANNA CTIVE PROTE IN, QUANT C-reactive protein, quant 24 mg/L 0-10 above high normal Not Available [facility] ([facility]) [address] [facility], [place], [address], 09/23/2024 19:06:31 11/25/19 25 11/26/2024 TSH+F REE T4 TSH 1.080 uIU/m L 0.450- 4.500 normal Not Available [facility] ([facility]) [address] [place], [address], 11/26/2024 11:07:44 11/25/19 25 11/26/2024 TSH+F REE T4 T4,free(dire ct) 1.75 NG/dL 0.82-1 .77 normal Not Available [facility] ([facility]) [address] [place], [address], 11/26/2024 11:07:44 11/25/19 25 11/26/2024 CBC WITH DIFFE RENTI AL/PL ATELE T WBC 7.0 x10e3 /uL 3.4-10 .8 normal Not Available [facility] ([facility]) [address] [place], [address], 11/26/2024 11:07:46 11/25/19 25 11/26/2024 CBC WITH DIFFE RENTI AL/PL ATELE T RBC 4.55 x10e6 /uL 4.14-5 .80 normal Not Available [facility] ([facility]) [address] [place], [address], 11/26/2024 11:07:46 11/25/19 25 11/26/2024 CBC WITH DIFFE RENTI AL/PL ATELE T hemoglobin 12.4 g/dL 13.0-1 7.7 below low normal Not Available [facility] ([facility]) [address] [place], [address], 11/26/2024 11:07:46 11/25/19 25 11/26/2024 CBC WITH DIFFE RENTI AL/PL ATELE T hematocrit 39.1 % 37.5-5 1.0 normal Not Available [facility] ([facility]) [address] [place], [address], 11/26/2024 11:07:46 11/25/19 25 11/26/2024 CBC WITH DIFFE RENTI AL/PL ATELE T MCV 86 fL 79-97 normal Not Available [facility] ([facility]) [address] [place], [address], 11/26/2024 11:07:46 11/25/19 25 11/26/2024 CBC WITH DIFFE RENTI AL/PL ATELE T MCH 27.3 pg 26.6-3 3.0 normal Not Available [facility] ([facility]) [address] [place], [address], 11/26/2024 11:07:46 11/25/19 25 11/26/2024 CBC WITH DIFFE RENTI AL/PL ATELE T MCHC 31.7 g/dL 31.5-3 5.7 normal Not Available [facility] ([facility]) [address] [place], [address], 11/26/2024 11:07:46 11/25/19 25 11/26/2024 CBC WITH DIFFE RENTI AL/PL ATELE T RDW 15.3 % 11.6-1 5.4 Not Available [facility] ([facility]) [address] [facility], [place], [address], 11/26/2024 11:07:46 11/25/19 25 11/26/2024 CBC WITH DIFFE RENTI AL/PL ATELE T platelets 184 x10e3 /uL 150-45 0 normal Not Available [facility] ([facility]) [address] [place], [address], 11/26/2024 11:07:46 11/25/19 25 11/26/2024 CBC WITH DIFFE RENTI AL/PL ATELE T neutrophils 67 % not estab. normal Not Available [facility] ([facility]) [address] [facility], [place], [address], 11/26/2024 11:07:46 11/25/19 25 11/26/2024 CBC WITH DIFFE RENTI AL/PL ATELE T lymphs 23 % not estab. normal Not Available [facility] ([facility]) [address] [facility], [place], [address], 11/26/2024 11:07:46 11/25/19 25 11/26/2024 CBC WITH DIFFE RENTI AL/PL ATELE T monocytes 6 % not estab. normal Not Available [facility] ([facility]) [address] [facility], [place], [address], 11/26/2024 11:07:46 11/25/19 25 11/26/2024 CBC WITH DIFFE RENTI AL/PL ATELE T eos 3 % not estab. normal Not Available [facility] ([facility]) [address] [place], [address], 11/26/2024 11:07:46 11/25/19 25 11/26/2024 CBC WITH DIFFE RENTI AL/PL ATELE T basos 1 % not estab. normal Not Available [facility] ([facility]) [address] [facility] [place], [address], 11/26/2024 11:07:46 11/25/19 25 11/26/2024 CBC WITH DIFFE RENTI AL/PL ATELE T immature cells SENIOR GRAPHIC DESIGNER Not Available [facility] ([facility]) [address] [place], [address], 11/26/2024 11:07:46 11/25/19 25 11/26/2024 CBC WITH DIFFE RENTI AL/PL ATELE T neutrophils (absolute) 4.7 x10e3 /uL 1.4-7. 0 normal Not Available [facility] ([facility]) [address] [place], [address], 11/26/2024 11:07:46 11/25/19 25 11/26/2024 CBC WITH DIFFE RENTI AL/PL ATELE T lymphs (absolute) 1.6 x10e3 /uL 0.7-3. 1 normal Not Available [facility] ([facility]) [address] [place], [address], 11/26/2024 11:07:46 11/25/19 25 11/26/2024 CBC WITH DIFFE RENTI AL/PL ATELE T monocytes(ab solute) 0.4 x10e3 /uL 0.1-0. 9 normal Not Available [facility] ([facility]) [address] [place], [address], 11/26/2024 11:07:46 11/25/19 25 11/26/2024 CBC WITH DIFFE RENTI AL/PL ATELE T eos (absolute) 0.2 x10e3 /uL 0.0-0. 4 normal Not Available [facility] ([facility]) [address] [place], [address], 11/26/2024 11:07:46 11/25/19 25 11/26/2024 CBC WITH DIFFE RENTI AL/PL ATELE T baso (absolute) 0.0 x10e3 /uL 0.0-0. 2 normal Not Available [facility] ([facility]) [address] [facility], [place], [address], 11/26/2024 11:07:46 11/25/19 25 11/26/2024 CBC WITH DIFFE RENTI AL/PL ATELE T immature granulocytes 0 % not estab. Not Available [facility] ([facility]) [address] [facility], [place], [address], 11/26/2024 11:07:46 11/25/19 25 11/26/2024 CBC WITH DIFFE RENTI AL/PL ATELE T immature grans (abs) 0.0 x10e3 /uL 0.0-0. 1 Not Available [facility] ([facility]) [address] [facility], [place], [address], 11/26/2024 11:07:46 11/25/19 25 11/26/2024 CBC WITH DIFFE RENTI AL/PL ATELE T NRBC SENIOR GRAPHIC DESIGNER Not Available [facility] ([facility]) [address] [facility], [place], [address], 11/26/2024 11:07:46 11/25/19 25 11/26/2024 CBC WITH DIFFE RENTI AL/PL ATELE T hematology comments: SENIOR GRAPHIC DESIGNER Not Available [facility] ([facility]) [address] [facility], [place], [address], 11/26/2024 11:07:46 11/25/19 25 11/26/2024 VITAM IN B12 AND FOLAT E vitamin B12 172 pg/mL 232-12 45 below low normal Not Available [facility] ([facility]) [address] [facility], [place], [address], 11/26/2024 11:07:46 11/25/19 25 11/26/2024 VITAM IN B12 AND FOLAT E folate (folic acid), serum 6.5 NG/mL >3.0 normal A serum folat e derrick ntrat ion of less than 3.1 ng/mL is consi dered to repre sent clini clara defic iency . Not Available [facility] ([facility]) [address] [facility], [place], [address], 11/26/2024 11:07:46 11/25/19 25 11/26/2024 VITAM IN D, 25-HY DROXY vitamin D, 25-hydroxy 54.0 NG/mL 30.0-1 00.0 Vitam in D defic iency has been defin ed by the Insti tute of Medic ine and an Endoc rine Socie ty pract ice guide line as a level of serum 25-OH vitam in D less than 20 ng/mL (1,2) . The Endoc rine Socie ty went on to furth er defin e vitam in D insuf ficie ncy as a level betwe en 21 and 29 ng/mL (2). 1. IOM (Inst itute of Medic ine). 2009. Akshat ry refer ence charly es for calci um and D. Laurel aguilar [place]: The Natio nal [facility] Press . 2. Margo noonan MF, Samantha carrasquillo [place], Kizzy off-F errar i CORRAL, et al. Evalu ation , treat ment, and preve ntion of vitam in D defic iency : an Endoc rine Socie ty clini clara pract ice guide line. JCEM. 2010; 96(7) :1911 -30. Not Available [facility] ([facility]) [address] [facility], [place], [address], 11/26/2024 11:07:47 02/25/20 25 02/24/2025 HbA1c (hemo globi n A1c), blood HbA1C 5.9 % Not Available [address], [address], 02/24/2025 08:39:09 05/25/20 25 05/26/2025 TSH+F REE T4 TSH 1.380 uIU/m L 0.450- 4.500 normal Not Available [facility] ([facility]) [address] [place], [address], 05/29/2025 14:07:56 05/25/2005/26/2025 TSH+F REE T4 T4,free(dire ct) 1.67 NG/dL 0.82-1 .77 normal Not Available [facility] ([facility]) [address] [place], [address], 05/29/2025 14:07:56 05/25/2005/26/2025 CBC WITH DIFFE RENTI AL/PL ATELE T WBC 7.8 x10e3 /uL 3.4-10 .8 normal Not Available [facility] ([facility]) [address] [facility], [place], [address], 05/29/2025 14:07:57 05/25/20 25 05/26/2025 CBC WITH DIFFE RENTI AL/PL ATELE T RBC 4.00 x10e6 /uL 4.14-5 .80 below low normal Not Available [facility] ([facility]) [address] [place], [address], 05/29/2025 14:07:57 05/25/20 25 05/26/2025 CBC WITH DIFFE RENTI AL/PL ATELE T hemoglobin 12.2 g/dL 13.0-1 7.7 below low normal Not Available [facility] ([facility]) [address] [place], [address], 05/29/2025 14:07:57 05/25/20 25 05/26/2025 CBC WITH DIFFE RENTI AL/PL ATELE T hematocrit 37.6 % 37.5-5 1.0 normal Not Available [facility] ([facility]) [address] [place], [address], 05/29/2025 14:07:57 05/25/20 25 05/26/2025 CBC WITH DIFFE RENTI AL/PL ATELE T MCV 94 fL 79-97 normal Not Available [facility] ([facility]) [address] [facility], [place], [address], 05/29/2025 14:07:57 05/25/20 25 05/26/2025 CBC WITH DIFFE RENTI AL/PL ATELE T MCH 30.5 pg 26.6-3 3.0 normal Not Available [facility] ([facility]) [address] [facility], [place], [address], 05/29/2025 14:07:57 05/25/20 25 05/26/2025 CBC WITH DIFFE RENTI AL/PL ATELE T MCHC 32.4 g/dL 31.5-3 5.7 normal Not Available [facility] ([facility]) [address] [facility], [place], [address], 05/29/2025 14:07:57 05/25/20 25 05/26/2025 CBC WITH DIFFE RENTI AL/PL ATELE T RDW 14.2 % 11.6-1 5.4 Not Available [facility] ([facility]) [address] [facility], [place], [address], 05/29/2025 14:07:57 05/25/20 25 05/26/2025 CBC WITH DIFFE RENTI AL/PL ATELE T platelets 171 x10e3 /uL 150-45 0 normal Not Available [facility] ([facility]) [address] [place], [address], 05/29/2025 14:07:57 05/25/20 25 05/26/2025 CBC WITH DIFFE RENTI AL/PL ATELE T neutrophils 68 % not estab. normal Not Available [facility] ([facility]) [address] [facility], [place], [address], 05/29/2025 14:07:57 05/25/20 25 05/26/2025 CBC WITH DIFFE RENTI AL/PL ATELE T lymphs 21 % not estab. normal Not Available [facility] ([facility]) [address] [place], [address], 05/29/2025 14:07:57 05/25/20 25 05/26/2025 CBC WITH DIFFE RENTI AL/PL ATELE T monocytes 6 % not estab. normal Not Available [facility] ([facility]) [address] [place], [address], 05/29/2025 14:07:57 05/25/20 25 05/26/2025 CBC WITH DIFFE RENTI AL/PL ATELE T eos 4 % not estab. normal Not Available [facility] ([facility]) [address] [place], [address], 05/29/2025 14:07:57 05/25/20 25 05/26/2025 CBC WITH DIFFE RENTI AL/PL ATELE T basos 1 % not estab. 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 0 normal Not Available [facility] ([facility]) [address] [place], [address], 05/29/2025 14:07:57 05/25/20 25 05/26/2025 CBC WITH DIFFE RENTI AL/PL ATELE T lymphs (absolute) 1.6 x10e3 /uL 0.7-3. 1 normal Not Available [facility] ([facility]) [address] [place], [address], 05/29/2025 14:07:57 05/25/20 25 05/26/2025 CBC WITH DIFFE RENTI AL/PL ATELE T monocytes(ab solute) 0.5 x10e3 /uL 0.1-0. 9 normal Not Available [facility] ([facility]) [address] [facility], [place], [address], 05/29/2025 14:07:57 05/25/20 25 05/26/2025 CBC WITH DIFFE RENTI AL/PL ATELE T eos (absolute) 0.3 x10e3 /uL 0.0-0. 4 normal Not Available [facility] ([facility]) [address] [facility], [place], [address], 05/29/2025 14:07:57 05/25/20 25 05/26/2025 CBC WITH DIFFE RENTI AL/PL ATELE T baso (absolute) 0.0 x10e3 /uL 0.0-0. 2 normal Not Available [facility] ([facility]) [address] [facility], [place], [address], 05/29/2025 14:07:57 05/25/20 25 05/26/2025 CBC WITH DIFFE RENTI AL/PL ATELE T immature granulocytes 0 % not estab. Not Available [facility] ([facility]) [address] [facility], [place], [address], 05/29/2025 14:07:57 05/25/20 25 05/26/2025 CBC WITH DIFFE RENTI AL/PL ATELE T immature grans (abs) 0.0 x10e3 /uL 0.0-0. 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 METAB OLIC PANEL (14) glucose 83 mg/dL 70-99 normal Not Available [facility] ([facility]) [address] [facility], [place], [address], 05/29/2025 14:07:58 05/25/20 25 05/26/2025 COMP. METAB OLIC PANEL (14) BUN 14 mg/dL 8-27 normal Not Available [facility] ([facility]) [address] [facility], [place], [address], 05/29/2025 14:07:58 05/25/20 25 05/26/2025 COMP. METAB OLIC PANEL (14) creatinine 1.11 mg/dL 0.76-1 .27 normal Not Available [facility] ([facility]) [address] [facility], [place], [address], 05/29/2025 14:07:58 05/25/20 25 05/26/2025 COMP. METAB OLIC PANEL (14) eGFR 75 mL/mi n/1.7 3 >59 normal Not Available [facility] ([facility]) [address] [place], [address], 05/29/2025 14:07:58 05/25/20 25 05/26/2025 COMP. METAB OLIC PANEL (14) BUN/creatini ne ratio 13 10-24 normal Not Available [facility] ([facility]) [address] [facility], [place], [address], 05/29/2025 14:07:58 05/25/20 25 05/26/2025 COMP. METAB OLIC PANEL (14) sodium 140 mmol/ L 134-14 4 normal Not Available [facility] ([facility]) [address] [place], [address], 05/29/2025 14:07:58 05/25/20 25 05/26/2025 COMP. METAB OLIC PANEL (14) potassium 4.3 mmol/ L 3.5-5. 2 normal Not Available [facility] ([facility]) [address] [place], [address], 05/29/2025 14:07:58 05/25/20 25 05/26/2025 COMP. METAB OLIC PANEL (14) chloride 105 mmol/ L 96-106 normal Not Available [facility] ([facility]) [address] [place], [address], 05/29/2025 14:07:58 05/25/20 25 05/26/2025 COMP. METAB OLIC PANEL (14) carbon dioxide, total 19 mmol/ L 20-29 below low normal Not Available [facility] ([facility]) [address] [place], [address], 05/29/2025 14:07:58 05/25/20 25 05/26/2025 COMP. METAB OLIC PANEL (14) calcium 8.8 mg/dL 8.6-10 .2 normal Not Available [facility] ([facility]) [address] [place], [address], 05/29/2025 14:07:58 05/25/20 25 05/26/2025 COMP. METAB OLIC PANEL (14) protein, total 7.0 g/dL 6.0-8. 5 normal Not Available [facility] ([facility]) [address] [place], [address], 05/29/2025 14:07:58 05/25/20 25 05/26/2025 COMP. METAB OLIC PANEL (14) albumin 4.2 g/dL 3.9-4. 9 normal Not Available [facility] ([facility]) [address] [place], [address], 05/29/2025 14:07:58 05/25/20 25 05/26/2025 COMP. METAB OLIC PANEL (14) globulin, total 2.8 g/dL 1.5-4. 5 Not Available [facility] ([facility]) [address] [facility], [place], [address], 05/29/2025 14:07:58 05/25/20 25 05/26/2025 COMP. METAB OLIC PANEL (14) bilirubin, total 0.3 mg/dL 0.0-1. 2 normal Not Available [facility] ([facility]) [address] [facility], [place], [address], 05/29/2025 14:07:58 05/25/20 25 05/26/2025 COMP. METAB OLIC PANEL (14) alkaline phosphatase 120 IU/L 44-121 normal Not Available [facility] ([facility]) [address] [place], [address], 05/29/2025 14:07:58 05/25/20 25 05/26/2025 COMP. METAB OLIC PANEL (14) AST (SGOT) 11 IU/L 0-40 normal Not Available [facility] ([facility]) [address] [place], [address], 05/29/2025 14:07:58 05/25/20 25 05/26/2025 COMP. METAB OLIC PANEL (14) ALT (SGPT) 10 IU/L 0-44 normal Not Available [facility] ([facility]) [address] [place], [address], 05/29/2025 14:07:58 05/25/20 25 05/26/2025 LIPID PANEL cholesterol, total 134 mg/dL 100-19 9 normal Not Available [facility] ([facility]) [address] [place], [address], 05/29/2025 14:07:58 05/25/20 25 05/26/2025 LIPID PANEL triglyceride s 88 mg/dL 0-149 normal Not Available [facility] ([facility]) [address] [place], [address], 05/29/2025 14:07:58 05/25/20 25 05/26/2025 LIPID PANEL HDL cholesterol 33 mg/dL >39 below low normal Not Available [facility] ([facility]) [address] [place], [address], 05/29/2025 14:07:58 05/25/20 25 05/26/2025 LIPID PANEL VLDL cholesterol clara 17 mg/dL 5-40 Not Available [facility] ([facility]) [address] [place], [address], 05/29/2025 14:07:58 05/25/20 25 05/26/2025 LIPID PANEL LDL chol calc (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 normal Not Available [facility] ([facility]) [address] [place], [address], 05/29/2025 14:07:59 05/25/20 25 05/26/2025 ALBUM IN/CR EATIN INE RATIO ,URIN E albumin, urine 19.8 ug/mL not estab. Not Available [facility] ([facility]) [address] [place], [address], 05/29/2025 14:07:59 05/25/20 25 05/26/2025 ALBUM IN/CR EATIN INE RATIO ,URIN E alb/creat ratio 32 mg/g_ creat 0-29 above high normal Mickie l: 0 - 29 Moder ately incre ased: 30 - 300 Sever blessing incre ased: >300 Not Available [facility] ([facility]) [address] [place], [address], 05/29/2025 14:07:59 05/25/2005/26/2025 TESTO STERO NE,FR EE AND TOTAL testosterone 119 NG/dL 264-91 6 below low normal Adult male refer ence inter andrae is based on a popul ation of healt hy nonob adolph males (BMI <30) betwe en 19 and 39 years old. Mae whitley, et.al . JCEM 2017, 102;1 161-1 173. PMID: 21524 103. Not Available [facility] ([facility]) [address] [facility], [place], [address], 05/29/2025 14:07:59 05/25/2005/29/2025 TESTO STERO NE,FR EE AND TOTAL free testosterone (direct) 1.5 pg/mL 6.6-18 .1 below low normal Not Available [facility] ([facility]) [address] [place], [address], 05/29/2025 14:07:59 05/25/2005/26/2025 HEMOG LOBIN A1C hemoglobin A1C 6.0 % 4.8-5. 6 above high normal Predi abete s: 5.7 - 6.4 Diabe dawson: >6.4 Glyce popeye contr ol for adult s with diabe dawson: <7.0 Not Available [facility] ([facility]) [address] [facility], [place], [address], 05/29/2025 14:08:00 05/25/20 25 05/26/2025 VITAM IN B12 vitamin B12 >2000 pg/mL 232-12 45 above high normal Not Available [facility] ([facility]) [address] [facility], [place], [address], 05/29/2025 14:08:01 05/25/20 25 05/26/2025 MAGNE SIUM magnesium 1.4 mg/dL 1.6-2. 3 below low normal Not Available [facility] ([facility]) [address] [facility], [place], [address], 05/29/2025 14:08:01 09/15/20 24 09/05/2024 US, doppl er echoc ardio gram No observ ation record ed. [email or web address], [place], [address], 09/15/2024 13:39:14 10/21/20 CT, chest , w/o contr ast No observ ation record ed. [address] , [place], [address], 10/24/2024 16:44:51 12/01/19 25 12/01/2024 DEXA No observ ation record ed. [place] [address], [place], [address], 12/01/2024 16:58:40 05/25/20 25 05/25/2025 elect rocar diogr am No observ ation record ed. [address], [address], 05/25/2025 08:31:38 05/26/20 25 05/25/2025 elect rocar diogr am No observ ation record ed. [email or web address] [facility] [address] [facility], [place], [address], 06/03/2025 09:11:56 06/09/20 25 06/08/2025 CT, angio gram, coron diya arter ies, w/ contr ast No observ ation record ed. [email or web address] [facility] [address], [place], [address], 06/09/2025 15:01:48 Result Notes None recorded. Problems Name Problem SNOMED Code Status Onset Date Resolution Date Notes Provider Name and Address Organization Details Recorded Time Type 2 diabetes mellitus 40959169 Active 2023 Khadijah Dolan APRN [address], [place], [address], [place] - [facility] 16:14:49 Hypertensive disorder 86434610 Active 2023 Khadijah Dolan APRN [address], [place], [address] [facility] 16:14:30 Hypercholester olemia 10223861 Active 2023 Khadijah Dolan APRN [address], [place], [address] [facility] 16:14:26 Chronic obstructive pulmonary disease 17861194 Active 2023 Khadijah Dolan APRN [address], [place], [address], [place] [facility] 16:14:11 History of primary malignant neoplasm of urinary bladder 597772292 Active 2023 Khadijah Dolan APRN [address], [place], [address] [facility] 16:14:22 Vitamin D deficiency 35809708 Active 2023 Khadijah Dolan APRN [address], [place], [address], [place] [facility] 16:15:06 Neuropathy 831855832 Active 2023 Khadijah Dolan [employer] [address], [place], [address], [place] [facility] 4 16:14:37 Gastroesophage al reflux disease 355628208 Active 2023 Khadijah Dolan [employer] [address], [place], [address], [place] [facility] 4 16:14:19 Hypothyroidism 26090364 Active 2023 Khadijah Dolan, [employer] [address], [place], [address], [place] [facility] 4 16:14:33 Chronic back pain 925009870 Active 2023 Khadijah Dolan APRN [address], [place], [address], [place] [facility] 16:14:07 Osteoarthritis 746558561 Active 2023 Khadijah Dolan APRN [address], [place], [address], [place] [facility] 16:14:41 Cobalamin deficiency 275510585 Active 2024 Khadijah Dolan APRN [address], [place], [address], [place] [facility] 09:03:37 Testosterone level below reference range 197724802 Active 2024 Khadijah Dolan APRN [address], [place], [address], [place] [facility] 09:03:39 Problem Notes None recorded. Procedures Surgical History Date Name Laterality Status Provider Name and Address Organization Details Recorded Time 06/10 Advance Care Planning completed Tana Vazquez [place] - [facility] 10:20:17 06/10 Functional Status Assessed completed Toni Vazquez [place] [facility] 10:20:17 02/19 Cancer Surgery completed Elizabeth Sotomayor [place] - [facility] 17:15:23 04/04 Back Surgery completed Elizabeth Stears [place] [facility] 4 17:30:55 03/22 Vasectomy completed Elizabeth Stears [place] [facility] 4 17:15:23 operation on urinary bladder completed Elizabeth Stears [place] [facility] 4 17:31:10 complete repair of r otator cuff completed Elizabeth Stears [place] [facility] 4 17:31:27 Carpal tunnel surgery completed Jewels nda Stears [place] - [facility] 4 17:31:55 Appendectomy completed Elizabeth Stears [place] [facility] 17:31:59 cardiac catheterization completed B anaid Stears [place] - [facility] 4 17:32:14 colonoscopy completed Elizabeth Stears [place] [facility] 4 17:33:16 esophagogastroduodenoscopy completed Elizabeth Stears [place] [facility] 4 17:33:21 Elbow arthroscopy completed Elizabeth Stears [place] [facility] 4 17:33:38 Excision of uvula completed Elizabeth Stears [place] [facility] 17:34:50 procedure on kidney completed Brend a Stears [place] - [facility] 4 17:36:22 Imaging Results None recorded. Procedure Notes None recorded. Medical Equipment None Reported. Allergies Allergen ID Allergen Name Allergen Category Reaction Reaction Severity Criticality Documentation Date Start Date Code Code System Note Provider Name and Address Organization Details Recorded Time 445026 Product containin g penicilli n (product) medicatio n Not available Not available Not available 01/15/2024 45377 8001 SNOMED Elizabeth Stears null, [place] - [facility] 17:16:15 554278 Bactrim medicatio n Not available Not available low 09/22/2024 11846 9 RxNorm Khadijah Dolan, [employer] [address], [place], [address], [place] - [facility] 11:17:51 Medications Name Sig Start Date Stop Date Status Note LastModified by Organization Details LastModified Time Prescript ion - Prior Authoriza tion Request active Not Available Not Available Not Available doxycycli ne hyclate 100 mg capsule Take 1 capsule twice a day by oral route for 10 days. 06/11 completed Not Available Not Available Not Available clindamyc in HCl 300 mg capsule Take 1 capsule 3 times a day by oral route for 10 days. 11/25 completed Not Available Not Available Not Available ammonium lactate 12 % lotion APPLY TO BILATERA L ELBOWS TWICE DAILY active Not Available Not Available No t Available atorvasta tin 10 mg tablet Take 1 tablet every day by oral route. 2024 active Not Available Not Available Not Avai lable ondansetr on HCl 4 mg tablet TAKE 1-2 TABLETS BY MOUTH EVERY EIGHT HOURS NEEDED FOR NAUSEA AND VOMITING 01/14 completed Not Available Not Available Not Available glipizide 10 mg tablet TAKE 1 TABLET BY MOUTH ONCE A DAY. 01/14 completed Not Available Not Available Not Available prednison e 5 mg tablet TAKE 1 TABLET BY MOUTH ONCE A DAY. 01/14 completed Not Available Not Available Not Available venlafaxi ne ER 150 mg capsule,e xtended release 24 hr TAKE (1) CAPSULE BY MOUTH ONCE A DAY. 01/14 completed Not Available Not Available Not Available ciproflox acin 500 mg tablet TAKE 1 TABLET BY MOUTH TWICE DAILY 04/15 completed Not Available Not Available Not Available sulfameth oxazole 800 mg-trimet hoprim 160 mg tablet TAKE (1) TABLET BY MOUTH TWICE A DAY. 01/14 completed Not Available Not Available Not Available omeprazol e 40 mg capsule,d elayed release TAKE 1 CAPSULE BY MOUTH EVERY DAY active Not Available Not Available No t Available ondansetr on 8 mg disintegr ating tablet DISSOLVE 1 TABLET BY MOUTH EVERY 8 HOURS IF NEEDED FOR NAUSEA OR VOMITING FOR UP TO 7 DAYS 01/14 completed Not Available Not Available Not Available bisoprolo l fumarate 5 mg tablet TAKE ONE (1) TABLET EVERY DAY BY ORAL ROUTE. active Not Available Not Available No t Available potassium chloride ER 20 mEq tablet,ex tended release(p art/cryst ) TAKE ONE TABLET BY MOUTH ONCE DAILY. 01/14 completed Not Available Not Available Not Available famotidin e 20 mg tablet Take 1 tablet every day by oral route. 2024 active Not Available Not Available Not Avai lable tamsulosi n 0.4 mg capsule TAKE ONE (1) CAPSULE BY MOUTH EVERY DAY WITH DINNER active Not Available Not Available No t Available hydrocodo ne 7.5 mg-acetam inophen 325 mg tablet TAKE ONE (1) TABLET BY MOUTH THREE TO FOUR TIMES A DAY 07/28 completed stopped by patient, he is on suboxone Not Available Not Available Not Available cephalexi n 500 mg capsule Take 1 capsule twice a day by oral route for 10 days. 11/25 completed Not Available Not Available Not Available nicotine 21 mg/24 hr daily transderm al patch APPLY ONE (1) PATCH EVERY DAY BY TRANSDER MAL ROUTE. 03/30 completed Not Available Not Available Not Available nitroglyc meliton 0.4 mg sublingua l tablet DISSOLVE ONE TABLET ON TONGUE NEEDED FOR CHEST PAIN. MAY REPEAT EVERY 5 MINS X 3 DOSES. NO RELIEF, CALL MD OR CALL 911 active Not Available Not Available No t Available aspirin 81 mg chewable tablet Chew 1 tablet every day by oral route. active Not Available Not Available No t Available bumetanid e 1 mg tablet TAKE ONE TABLET BY MOUTH DAILY. 01/14 completed Not Available Not Available Not Available levothyro xine 200 mcg tablet TAKE 1 TABLET BY MOUTH EVERY DAY active Not Available Not Available No t Available mupirocin 2 % topical ointment APPLY TO AFFECTED AREA A SMALL AMOUNT THREE (3) TIMES DAILY active Not Available Not Available No t Available ergocalci ferol (vitamin D2) 1,250 mcg (50,000 unit) capsule TAKE ONE (1) CAPSULE BY MOUTH EVERY WEEK active Not Available Not Available No t Available albuterol sulfate HFA 90 mcg/actua tion aerosol inhaler INHALE TWO (2) PUFFS EVERY FOUR (4) HOURS BY INHALATI ON ROUTE NEEDED FOR 30 DAYS. active Not Available Not Available No t Available oxybutyni n chloride 5 mg tablet 01/14 completed Not Available Not Available Not Available lisinopri l 40 mg tablet Take 1 tablet every day by oral route. 2024 active Not Available Not Available Not Avai lable cefdinir 300 mg capsule TAKE (1) CAPSULE BY MOUTH TWICE DAILY. 01/14 completed Not Available Not Available Not Available fluticaso ne propionat e 50 mcg/actua tion nasal spray,anibal pension USE 1 SPRAY IN EACH NOSTRIL ONCE DAILY. active Not Available Not Available No t Available metformin ER 500 mg tablet,ex tended release 24 hr TAKE 2 TABLETS BY MOUTH TWICE DAILY 2024 active Not Available Not Available Not Avai lable diazepam 5 mg tablet Take 1 tablet twice a day by oral route as needed. 11/25 completed Not Available Not Available Not Available nitrofura ntoin monohydra te/macroc rystals 100 mg capsule TAKE ONE (1) CAPSULE (100 MG) BY MOUTH TWO (2) (TWO) TIMES A DAY. active Not Available Not Available No t Available duloxetin e 30 mg capsule,d elayed release TAKE 1 CAPSULE BY MOUTH EVERY DAY active Not Available Not Available No t Available pregabali n 75 mg capsule TAKE ONE (1) CAPSULE EVERY OTHER DAY BY ORAL ROUTE FOR 30 DAYS. 02/24 completed Not Available Not Available Not Available pregabali n 150 mg capsule TAKE ONE (1) CAPSULE BY MOUTH TWICE A DAY 09/22 completed Not Available Not Available Not Available pregabali n 300 mg capsule TAKE 1 CAPSULE BY MOUTH TWICE DAILY FOR 30 DAYS 07/28 completed Not Available Not Available Not Available BD Ultra-Fin e Short Pen Needle 31 gauge x 5/16 USE DIRECTED active Not Available Not Available No t Available fenofibra te nanocryst allized 145 mg tablet TAKE 1 TABLET BY MOUTH ONCE A DAY. 01/14 completed Not Available Not Available Not Available Lantus Solostar U-100 Insulin 100 unit/mL (3 mL) subcutane ous pen INJECT FIVE (5) UNITS EVERY DAY BY SUBCUTAN EOUS ROUTE AT BEDTIME. active Not Available Not Available No t Available diclofena c 1 % topical gel APPLY TWO (2) GRAMS TO THE AFFECTED AREA(S) BY TOPICAL ROUTE THREE (3) TIMES PER DAY active Not Available Not Available No t Available venlafaxi ne ER 225 mg tablet,ex tended release 24 hr TAKE 1 TABLET BY MOUTH EVERY DAY 07/28 completed Not Available Not Available Not Available Probiotic 10 stands once a day 04/15 completed Not Available Not Available Not Available Suboxone 8 mg-[address] mg sub[address] l film Place 1 film every day by sublingu al route. active Not Available Not Available No t Available Tradjenta 5 mg tablet Take 1 tablet every day by oral route. 2024 active lot # [id number] exp;09/22 Not Available Not Available Not Available TRUEplus Lancets 33 gauge USE DIRECTED PER MD OFFICE active Not Available Not Available No t Available True Metrix Glucose Test Strip TAKE ONE (1) STRIP THREE (3) TIMES A DAY BY MISCELL. ROUTE. active Not Available Not Available No t Available True Metrix Glucose Meter USE TO CHECK BLOOD GLUCOSE DIRECTED . active Not Available Not Available No t Available Stiolto Respimat 2.5 mcg-2.5 mcg/actua tion solution for inhalatio n INHALE TWO (2) PUFFS EVERY DAY BY INHALATI ON ROUTE FOR 30 DAYS. active Not Available Not Available No t Available Wixela Inhub 250 mcg-50 mcg/dose powder for inhalatio n INHALE ONE (1) PUFF TWICE A DAY BY INHALATI ON ROUTE FOR 30 DAYS. 02/24 completed Not Available Not Available Not Available Mounjaro 5 mg/0.5 mL subcutane ous pen injector INJECT FIVE (5) MG EVERY WEEK BY SUBCUTAN EOUS ROUTE. 06/10 completed pancreat itis Not Available Not Available Not Available Mounjaro 2.5 mg/0.5 mL subcutane ous pen injector INJECT TWO AND A HALF (2 & 1/2) MG EVERY WEEK BY SUBCUTAN EOUS ROUTE. 06/10 completed pancreat itis Not Available Not Available Not Available FreeStyle Noemi 3 Sensor device USE DIRECTED PER MD INSTRUCT ION CHANGING EVERY 14 DAYS active Not Available Not Available No t Available FreeStyle Noemi 3 Pamplico USE DIRECTED PER MD OFFICE active Not Available Not Available No t Available Ultra-Fin e Pen Needle 31 gauge x /16 USE DIRECTED PER MD active Not Available Not Available No t Available Vitals Date Recorded Body height Body mass index (BMI) Body weight Oxygen saturation Oxygen saturation in Arterial blood by Pulse oximetry Heart rate Respiratory rate Pain severity - 0-10 verbal numeric rating [Score] - Reported Systolic And Diastolic Provider Name and Address Organization Details Last Updated DateTime 5 175.26 cm 29.7 kg/m2 09799.0 7 g 92 % 92 % 76 /min 18 /min 7 158/88 mm[Hg] Tana rGamajo [facility] 5 13:09:32 Date Recorded Body height Body mass index (BMI) Body weight Pain severity - 0-10 verbal numeric rating [Score] - Reported Respiratory rate Heart rate Oxygen saturation Oxygen saturation in Arterial blood by Pulse oximetry Systolic And Diastolic Provider Name and Address Organization Details Last Updated DateTime 5 175.26 cm 30 kg/m2 77516.2 5 g 8 20 /min 63 /min 96 % 96 % 132/82 mm[Hg] Tana Vazquez [place] - [facility] 5 08:12:43 Date Recorded Body height Body mass index (BMI) Body weight Body temperature Heart rate Oxygen saturation Oxygen saturation in Arterial blood by Pulse oximetry Respiratory rate Pain severity - 0-10 verbal numeric rating [Score] - Reported Systolic And Diastolic Provider Name and Address Organization Details Last Updated DateTime 5 175.26 cm 29.8 kg/m2 71644.6 6 g 98 [degF] 45 /min 98 % 98 % 18 /min 6 138/80 mm[Hg] Tana Vazquez [place] - [facility] 5 08:17:13 Date Recorded Body height Body mass index (BMI) Body weight Body temperature Heart rate Oxygen saturation Oxygen saturation in Arterial blood by Pulse oximetry Respiratory rate Pain severity - 0-10 verbal numeric rating [Score] - Reported Systolic And Diastolic Provider Name and Address Organization Details Last Updated DateTime 4 175.26 cm 31 kg/m2 78320.4 g 97.8 [degF] 79 /min 96 % 96 % 18 /min 7 124/70 mm[Hg] Tana Vazquez [place] - [facility] 4 08:33:39 Date Recorded Body height Respiratory rate Body mass index (BMI) Body weight Heart rate Oxygen saturation Oxygen saturation in Arterial blood by Pulse oximetry Body temperature Systolic And Diastolic Provider Name and Address Organization Details Last Updated DateTime 4 175.26 cm 18 /min 30.6 kg/m2 26134.6 2 g 86 /min 92 % 92 % 98.1 [degF] 162/80 mm[Hg] Elizabeth Sotomayor [place] - [facility] 4 08:49:59 Social History Question Answer Notes LastModified by Organizat ion Details LastModified Time Tobacco Smoking Status Current Every Day Smoker Elizabeth Светлана figueroa, [place] - [facility] 01/15/2024 17:15:23 Do You Have An Advance Directive? No Information not available 01/15/2024 Are You Blind Or Do You Have Difficulty Seeing? Yes States Needs Glasses Information not available 01/15/2024 Is Blood Transfusion Acceptable In An Emergency? Yes Information not available 01/15/2024 What Is Your Level Of Caffeine Consumption? Heavy Information not available 01/15/2024 How Much Tobacco Do You Chew? 2-4/day Information not available 07/08/2024 Are You Deaf Or Do You Have Serious Difficulty Hearing? Yes No Hearing Aids Information not available 01/15/2024 What Type Of Diet Are You Following? REGULAR Information not available 01/15/2024 What Is The Highest Grade Or Level Of School You Have Completed Or The Highest Degree You Have Received? [id number] Information not available 01/15/2024 Have There Been Any Changes To Your Family Or Social Situation? No Information not available 01/15/2024 What Is The Fluoride Status Of Your Home? Unknown Information not available 01/15/2024 Do You Have A Medical Power Of Blueprint Assembler? No Information not available 01/15/2024 What Was The Date Of Your Most Recent Tobacco Screening? 11/25/2024 Information not available 11/25/2024 What Is Your Current Pack Years? 30ormorepac kyears Information not available 01/15/2024 Do You Use Protection Against STDs? No Information not available 01/15/2024 What Is Your Relationship Status? Information not available 01/15/2024 Do You Use Your Seat Belt Or Car Seat Routinely? No Information not available 01/15/2024 Are You Sexually Active? No Information not available 01/15/2024 Do You Have Smoke And Carbon Monoxide Detectors In Your Home? Yes Information not available 01/15/2024 At What Age Did You Start Smoking Tobacco? 17 Information not available 01/15/2024 Are You Passively Exposed To Smoke? Yes Information not available 01/15/2024 How Much Tobacco Do You Smoke? 2 PPD Information not available 01/15/2024 Do You Use Sunscreen Routinely? No Information not available 01/15/2024 Has Tobacco Cessation Counseling Been Provided? Yes Information not available 04/15/2024 On What Date Was Tobacco Cessation Counseling Provided? 11/25/2024 Information not available 11/25/2024 How Many Years Have You Smoked Tobacco? 46 46 In 2023 Information not available 02/11/2024 Do You Have Difficulty Walking Or Climbing Stairs? Yes Information not available 01/15/2024 Sex: Male Functional Status Question Answer Note LastModified by Organizat ion Details LastModified Time Do you use any illicit or recreational drugs? No Information not available 01/15/2024 Do you or have you ever used any other forms of tobacco or nicotine? No Information not available 01/15/2024 What is your level of alcohol consumption? None Information not available 01/15/2024 Do you or have you ever used smokeless tobacco? Current snuff user Information not available 07/08/2024 Are you currently employed? No Information not available 01/15/2024 Do you have transportation difficulties? No Information not available 01/15/2024 Are you able to walk independently without assistance or assistive devices? YESWOREST Information not available 01/15/2024 Do you have difficulty doing errands alone? Yes Information not available 01/15/2024 Are you able to care for yourself independently? Yes Information not available 01/15/2024 Do you have difficulty dressing, bathing, grooming, or toileting? Yes Information not available 01/15/2024 Do you or have you ever used e-cigarettes or vape? Never used electronic cigarettes Information not available 01/15/2024 What is your exercise level? None Information not available 01/15/2024 Mental Status Question Answer Note LastModified by Organizat ion Details LastModified Time Do you feel stressed (tense, restless, nervous, or anxious, or unable to sleep at night)? [id number] Information not available 01/15/2024 Do you have difficulty concentrating, remembering or making decisions? Yes remembering Information not available 01/15/2024 Family History Relationship Description Onset Age of this Age Resolved Age Notes LastModified by Organization Details LastModified Time Mother Arthritis bstears Not available 01/15/2024 17:15:22 Father Hypertensive disorder bstears Not available 2023 17:15:22 Medical History Condition Response COPD Y Depression Y Muscle, Joint, or Bone Problems Y Arthritis Y Cancer Y Hypercholesterolemia Y Ear or Hearing Problems Y Thyroid Problems Y Diabetes Y Sleep Apnea Y Neuropathy Y Hypertension Y Immunizations Vaccine Type Date Status Note Provider Nam e and Address Organization Details Recorded Time Influenza, split virus, trivalent, preservative 4 completed Tana Vazquez null, [place] - [facility] 07/08/2024 09:49:21 COVID-19, mRNA, LNP-S, PF, 100 mcg/0.5mL dose or 50 mcg/0.25mL dose 1 completed Elizabeth Stears null, [place] - [facility] 02/11/2024 11:39:26 COVID-19, mRNA, LNP-S, PF, 100 mcg/0.5mL dose or 50 mcg/0.25mL dose 1 completed Elizabeth Stears null, [place] - [facility] 02/11/2024 11:39:26 Tdap 6 completed Elizabeth Stears [place] [facility] 02/11/2024 11:39:26 Influenza, split virus, quadrivalent, PF 9 completed Elizabeth Stears [place] [facility] 02/11/2024 11:39:26 Influenza, split virus, quadrivalent, PF 8 completed Elizabeth Ste[place] [facility] 02/11/2024 11:39:26 Influenza, split virus, quadrivalent, PF 3 completed Elizabeth Stears [place] [facility] 02/11/2024 11:39:26 Influenza, split virus, quadrivalent, PF 0 completed Elizabeth Stears null, [place] - [facility] 02/11/2024 11:39:26 Past Encounters Encounter ID Performer Location Encounter Start Date Encounter Closed Date Diagnosis/Indication Diagnosis SNOMED-CT Code Diagnosis ICD10 Code Diagnosis IMO Codes Diagnosis Note [id number] Khadijah Gilromaine [address] [address] 01/15/2024 16:59:46 01/15/2024 18:30:27 Body mass index 30+ - obesity 958421278 Z68.36 36.6 Obesity 608798013 E66.9 Type 2 veronika betes mellitus 85419221 E11.22 has had more than 2 hypoglycem ic eventsstop glipizide Chronic back pain 953578 002 G89.29 Chronic ob structive pulmonary disease 80794187 J44.9 Gastroesop hageal reflux disease 490816409 K21.9 History of primary malignant neoplasm of urinary bladder 607448690 Z85.51 Hypercholesterolemia 136 21949 E78.00 Hypertensive disorder 38 869130 I10 Hypothyroidism 52329395 E03.9 Neuropathy 961245109 G62 .9 Osteoarthritis 780930662 M19.90 Skin lesion 68113068 L98 .9 [id number] Khadijah Gilromaine [address] [address] 02/11/2024 11:15:07 02/11/2024 12:08:22 Type 2 diabetes mellitus 86872064 E11.22 has had more than 2 hypoglycem ic eventsstop glipizide Neuropathy 980172043 G62 .9 Pt compliant with plan of careKasper reviewedme dication compliance discussedL ast uds: 4Control substance agreement on file Long-term drug therapy 178122776 Z79.758 [id number] Francescoradha Dolan [address] [address] 04/15/2024 15:13:38 04/15/2024 16:17:29 Type 2 diabetes mellitus 44936132 E11.22 check labsmay need to add jardiance back if a1c high Gastroesop hageal reflux disease 477669980 K21.9 Hypercholesterolemia 136 77182 E78.00 labs Hypertensive disorder 38 361350 I10 labs Hypothyroidism 63028067 E03.9 labs Neuropathy 684772351 G62 .9 Vitamin D deficiency 347 54160 E55.9 labs History of primary malignant neoplasm of urinary bladder 414312874 Z85.51 Pain of le ft knee joint 9832530684 81829 M25.562 xray Pain of ri ght knee joint 1055041559 41763 M25.561 xray Fatigue 68880828 R53.83 labs [id number] Khadijah Dolan [address] [address] 05/06/2024 08:49:49 05/06/2024 09:23:04 Hemoglobin below reference range 676322255 D64.9 Screening for malignant neoplasm of colon 995636707 Z12.11 per last lab results, Khadijah wants pt to have cologard done Anemia 469963893 D64.9 [id number] Khadijah Dolan [address] [address] 05/13/2024 15:07:01 05/13/2024 15:59:08 Neuropathy 213998774 G62.9 Pt compliant with plan of careAbiodun reviewedme dication compliance discussedL ast uds: 4Control substance agreement on file [id number] Tana Esquivel [facility] [address] [place] [address] 05/14/2024 15:10:32 05/15/2024 10:16:55 Lichenification of skin 614902921 L28.0 discussed correlatio n to picking and rubbing elbows. [id number] Khadijah Dolan [address] [address] 06/10/2024 10:14:57 06/10/2024 11:05:15 Adult health examination 761145459 Z00.00 Depression screening 171 719988 Z13.31 A depression screening was completed via a standardiz ed screening tool. 5 minutes were spent discussing depression screening results and risk factors. Examinatio n of blood pressure 540006234 Z01.30 Diet education 62977380 Z71.3 Counseling 450074649 Z71 .82 Exercise counseling . Patient encouraged to exercise 30 minutes 5 days a week. At [facility] ed risk for falls 012236198 Z91.81 STEADI FAST screening score of ___4__. Advance care planning 71 7031174 Z71.89 Finding of body mass index 364802934 Z68.33 Seasonal a llergic rhinitis 565764846 J30.2 Obesity 780837339 E66.9 Type 2 veronika betes mellitus 61204710 E11.22 check labsadded tradjenta- due to bladder cancer do not want to add med that could affect his treatment. if tradjenta does not work will add lantus at bedtime. will recheck labs and review cgm next month. [id number] Khadijah Dolan APRN [address] [address] 07/08/2024 07:55:18 07/08/2024 08:52:45 Gastroesophageal reflux disease 443662262 K21.9 Hypercholesterolemia 136 37636 E78.00 labs Hypertensive disorder 38 900348 I10 labs Hypothyroidism 80428381 E03.9 labs Neuropathy 102794221 G62 .9 Pt compliant with plan of careAbiodun reviewedme dication compliance discussedL ast uds: 4Control substance agreement on file Type 2 veronika betes mellitus 64873710 E11.22 check labs Vitamin D deficiency 347 26779 E55.9 labs Active or passive immunization 480761275 Z23 Long-term current use of drug therapy 345234952 Z79.899 HIV screening 997253300 Z11.4 Hepatitis C screening 41 3682957 Z11.59 Screening for malignant neoplasm of respiratory tract 553676750 Z12.2 Nicotine d ependence with current use 355121638 F17.210 Current tobacco user Anxiety 49427600 F41.9 will check thyroid- if wnl will adjust meds Colon canc er screening declined 2853948341 9109 Z53.20 declined colonoscop y or cologuard, states he is not doing any test History of nicotine dependence 7098630867 00126162 Z87.209 [id number] Khadijah Dolan APRN [address] [address] 07/28/2024 08:03:44 07/28/2024 09:06:16 Multiple nodules of lung 043602924 R91.8 refer to pulmonolog y Type 2 veronika betes mellitus 63351106 E11.22 reviewed glucose log- start lantusdisc ussed injections with pt Neuropathy 928348146 G62 .9 Pt compliant with plan of careKasper reviewedme dication compliance discussedL ast uds: 4Control substance agreement on filelyrica taper Depressive disorder 8320 9007 F32.A will do low dose cymbalta due to other medsdiscus sed dc effexor and starting cymbalta with pharm [id number] Khadijah Dolan [address] [address] 08/25/2024 08:15:06 08/25/2024 09:02:51 Osteoarthritis 586099682 M19.90 Chronic back pain 875871 002 G89.29 Hypothyroidism 26890679 E03.9 labs next visit Gastroesop hageal reflux disease 916191818 K21.9 Neuropathy 955875387 G62 .9 Pt compliant with plan of careKasper reviewedme dication compliance discussedL ast uds: 4Control substance agreement on filelyrica taper Hypertensive disorder 38 310954 I10 Disorder o f nasal sinus 7574158 J34.9 Anxiety 87357387 F41.9 discussed with pt he can not be on diazepam, and suboxone. [facility],pt declined, he states he sees one at the clinic. 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 1357510585 100 E11.621 betadine soaks to heel bid- walking boot when walkingcle an area bid apply dressingre turn if symptoms worsen or no improvemen t Testostero ne level below reference range 789460857 R89.1 Hyperlipidemia 77816749 E78.5 Gastroesop hageal reflux disease 525029347 K21.9 Vitamin D deficiency 347 42910 E55.9 labs [id number] Khadijah Dolan [address] [address] 11/25/2024 12:57:46 11/25/2024 14:28:19 Chronic back pain 749955409 G89.29 Osteoarthritis 126327592 M19.90 Neuropathy 596496519 G62 .9 Pt compliant with plan of careAbiodun reviewedme dication compliance discussedL ast uds: 4Control substance agreement on filelyrica eod- last script Hemoglobin below reference range 021468111 D64.9 Fatigue 19673463 R53.83 labs Depressive disorder 3548 9007 F32.A refer [facility] adjustment [facility] due to being on suboxone Testostero ne level below reference range 803214451 R89.1 follow up with urology- pt states he will call for appointmen t with dr khalil [id number] Khadijah Dolan [address] [address] 02/24/2025 08:00:53 02/24/2025 08:45:55 Body mass index 30+ - obesity 894309084 E66.9 4581909 30 Obesity 119609400 E66.9 Acquired hypothyroidism 743518701 E03.9 63769 labs next visit Type 2 veronika betes mellitus 57392442 E11.22 a1c improved contiune with treatment plan and diet [id number] Khadijah Dolan [address] [address] 05/25/2025 07:58:59 05/25/2025 09:10:15 Type 2 diabetes mellitus 71338708 E11.22 Overweight in adulthood with body mass index of 25 or more but less than 30 170668582 E66.3 Z68.29 5189460626 [id number] [facility] 36028126 R00 .1 13112 ekgspoke with alisha, sent to see alisha office at 11 am. Abscess of elbow 4777275 07 L02.413 8534123736 medskeep area clan and dryif worsen or no improvemen t return Testostero ne level below reference range 790253371 R79.89 303389 follow up with urology- Cobalamin deficiency 190 697951 E53.8 502680 Health Concerns Section Related Observation LastModified by Organization Detai ls LastModified Time None Recorded Concern Status LastModified by Organization Details LastModified Time None Recorded Advance Directives Directive N: Payers Insurance Date Sequence Insurance Name Policy Number Policy Laguerre Covered Member ID Laguerre Member ID Guarantor Name 06/22/2025 1 [employer] (MEDICARE REPLACEMENT/A DVANTAGE - PPO) Noe Silvestre [id number] Noe Silvestre Notes Date Note Type Note Provider Name and Address Organization Details Recorded Time 08/25/2024 text/html ROS as noted in the [facility] 64 yr old male presents for a follow up on diabetes. He would also like to have a new rx for di azepam, took it years ago and wants some to have on hand if needed.pt states he also needs to see ent due to nose always running. pt states for years he was snorting his pain meds and thinks its caused something to happen to his sinus cavity.pt states he would also like to see cardiology due to his bp being up and down Khadijah Dolan, DAVID [address], [place], [address], [place] [facility] 08/25/2024 09:07:05 09/22/2024 text/html ROS as noted in the HPI 64 year old male who presents to the office today for a follow up ontype 2 diabeteshas concerns of blister on right foot, skin falling off heel of right footmed refills on famotidine, vitamin D 50,000iu, atorvastatin, also needs sensors for noemi Khadijah Dolan, [employer] [address], [place], [address], [place] [facility] 09/22/2024 13:23:33 11/25/2024 text/html ROS as noted in the [facility] 64 yr old male presents for a follow up on chronic pain, has been fatigued and states he feels depressed, no si or hi. He needs a refill on pregabalin. He also needs some follow up labs from a low hemaglobin in Sep. also needs a bone scan ordered. Khadijah Dolan, MANA[employer] [address], [place], [address], [facility] - [facility] 11/25/2024 14:50:11 02/24/2025 text/html Diabetes F/UReported by PatientHPIFor review finger sticks, patient reportsfastin. For labs, patient reportslast a1c result: 70. For context, patient reportsnormal range of home blood sugars (in the low 100s),seeing eye doctor regularly, andchecking feet regularly. For associated symptoms, patient reportsno weight gain,no weight loss,no dizziness,no sweats,no headaches,no confusion,no increased thirst,no increased appetite,no increased urination,no blurred vision,no numbness of feet, andno calluses on feet. 64 yr old male presents for a diabetic follow up. pt states he is doing well. no c/o today. pt states blood sugars have been running 70-110 Khadijah Dolan, DAVID [address], [place], [address], [facility] - [facility] 02/24/2025 14:55:08 05/25/2025 text/html Diabetes F/UReported by PatientHPIFor review finger sticks, patient reportsfastin. For labs, patient reportslast a1c result: 5.9. For context, patient reportsnormal range of home blood sugars (in the low 100s),seeing eye doctor regularly, andchecking feet regularly. For associated symptoms, patient reportsno weight gain,no weight loss,no dizziness,no sweats,no headaches,no confusion,no increased thirst,no increased appetite,no increased urination,no blurred vision,no numbness of feet, andno calluses on feet. 65 yr old male presents for a diabetes follow up. pt states glucose has been doing ok.pt states he is feeling tired all the time. Patient has a pulse of 45, ekg obtained. He has a wound to the left elbow he wanted checked and also needs labs today.pt states he would like labs to check testostrone,vit b12 also with other labs Khadijah Dolan, [employer] [address], [place], [address], [facility] - [facility] 05/25/2025 09:15:25
--- OUTSIDE RECORDS SUMMARY | 2025-08-17 16:11 | XMS_ITS | Encounter Summary ---
Author Organization [employer] ([place], [place], [place], [place]) Address [address] [place] [address] Care Team Providers Care Physicist [employer] Name Role Phone Unavailable Primary Care Provider Unavailabl e Encounter Details Date Type Department Care Team (Late st Contact Info) Description 11/04/2020 Transcribed Document [facility] Family Medicine Formerly [facility] [place] [address] ProviderFarhan MD [address] [place] [address] Social History Tobacco Use Types [...] - Farhan ProviderMD - 11/04/2020 6:06 PM FLOATLIGHT POWDER MIXER Patient Education Materials Follows: Spinal Fusion, Adult, Care After This sheet gives you information about how to care for yourself after your procedure. Your doctor may also give you more specific instructions. If you have problems or questions, contact your doctor. Follow these instructions at home: Medicines ??? Take hndd-jts-lybecxf and prescription medicines only as told by [...] cannot use soap and water, use hand senior asp net developer. ? Change your bandage as told by [...] your pee (urine) pale yellow. ? Take wqrn-zpv-xbxjtyh or prescription medicines. ? Eat foods that [...] 02/01/2012 Document Revised: 01/29/2020 Document Reviewed: 01/22/2018 [employer] Patient Education ? 2019 [employer] documented in this encounter Plan of Treatment Not on file documented as of this encounter Visit Diagnoses Not on filedocumented in this encounter
--- OUTSIDE RECORDS SUMMARY | 2025-08-17 16:11 | XMS_ITS | Encounter Summary ---
Author Organization Healthcare Address [address] [place] [address] Care Team Providers Care Solar Sales Estimator Name Role Phone Ministerio Rosas MD Unavailable [phone] Khadijah Dolan APRN Primary Care Provider [phone] Reason for Visit * Reason Comments Med Refill Encounter Details Date Type Department Care Team (Late st Contact Info) Description 07/29/2025 Refill [facility] [address], [address] [place] [address] Zuleyka Escobedo MD [address] [place] [address] Social History Tobacco Use Types [...] Info) Description 12/22/2025 8:40 AM EST Appointment [facility] [address] [place] [address] 12/22/2025 10:30 AM EST Office Visit [facility] [address] [place] [address] Ministerio Rosas MD [address] [address] documented as of this encounter [...] documented as of this encounter Care Teams Solar Sales Estimator Relationship Specialty Start Date End Date Khadijah Dolan APRN [address] [place] [address] PCP - General 05/04/25 Ministerio Rosas MD [address] [facility] [place] [id number] Surgeon Urology 09/23/24 documented as of this encounter
--- OUTSIDE RECORDS SUMMARY | 2025-08-17 16:11 | XMS_ITS | Encounter Summary ---
Author Organization [employer] ([place], [place], [place], [place]) Address [address] [place] [address] Care Team Providers Care Upper Lining Cementer Name Role Phone Unavailable Primary Care Provider Unavailabl e Encounter Details Date Type Department Care Team (Late st Contact Info) Description 10/26/2020 Transcribed Document [facility] [place] Family Medicine [address] [place] [address] ProviderFarhan MD [address], [place] [id number] Social History Tobacco Use Types Packs/Day Years [...] - Historical ProviderMD - 10/26/2020 9:22 AM BURLAPPER Spiritual Care Assessment Entered On: 10/29/2020 7:43 EST Performed On: 10/29/2020 7:27 EST by SADIE ALEX General Information Initial Visit : Yes Referred by : Patient Referral Reason Comment : Pre-surgery visit Ministry Provided to : Patient Adventist Preference : Mormonism SADIE ALEX P - 10/29/2020 7:43 EST Spiritual Assessment Spiritual Assessment Comment/Summary Points : Provided pre-surgery visit and prayer. Spirital Assessment Comment/Summary Report : SPIRITUAL ASSESSMENT COMMENT/SUMMARY No qualifying data available. SADIE ALEX P - 10/29/2020 7:43 EST Interventions Emotional Support : Empathic/Engaged listening Spiritual and Adventist : Prayer shared, Spiritual/Adventist support provided SADIE ALEX - 10/29/2020 7:43 EST Electronically signed by Kailey [facility] Conversion Malt House Kiln Operator Cerner at 02/08/2023 12:38 PM CDT documented in this encounter Plan of Treatment Not on file documented as of this encounter Visit Diagnoses Not on filedocumented in this encounter
--- OUTSIDE RECORDS SUMMARY | 2025-08-17 16:11 | XMS_ITS | Encounter Summary ---
Author Organization [employer] ([place], [place], [place], [place]) Address [address] [place] [address] Care Team Providers Care Powder Mill Operator Name Role Phone Unavailable Primary Care Provider Unavailabl e Encounter Details Date Type Department Care Team (Late st Contact Info) Description 10/28/2020 Transcribed Document [facility] [place] Family Medicine [address] [place] [address] ProviderFarhan MD [address] [place] [address] Social History Tobacco Use Types [...] - Historical ProviderMD - 10/28/2020 12:39 PM TRIM TECHNICIAN [facility] Authorization Entered On: 10/28/2020 12:40 EST Performed On: 10/28/2020 12:39 EST by DERICK SHIPMAN, Supervisor Sulfuric Acid Plant Primary Insurance Authorization Authorization and Policy Numbers : Insurance 1 Health Plan: [employer] PPO Policy Number: [id number] Authorization Number: Insurance Primary Name : [employer] Choice [id number] Auth/Referral Contact Name-Primary : Alfredo Casas Authorization [...] : No Authorization Comments Found DERICK SHIPMAN, Supervisor Sulfuric Acid Plant - 10/28/2020 12:39 EST Electronically signed by Kailey, [facility] Conversion Title Specialist Cerner at 02/08/2023 12:46 PM CDT documented in this encounter Plan of Treatment Not on file documented as of this encounter Visit Diagnoses Not on filedocumented in this encounter
--- OUTSIDE RECORDS SUMMARY | 2025-08-17 16:11 | XMS_ITS | Referral Summary ---
Author Organization [employer] ([place], [place], [place], [place]) Address [address] [place] [address] Care Team Providers Care Prn Physical Therapist Name Role Phone Unavailable Primary Care Provider [...] Date Keyon rded Speak language other than Vietnamese at home Not on file 10/30/2023 Want [...]
--- OUTSIDE RECORDS SUMMARY | 2025-08-17 16:12 | XMS_ITS | Encounter Summary ---
Author Organization [employer] ([place], [place], [place], [place]) Address [address] [place] [address] Care Team Providers Care Office Services Assistant Name Role Phone Unavailable Primary Care Provider Unavailabl e Encounter Details Date Type Department Care Team (Late st Contact Info) Description 10/30/2020 Transcribed Document [facility] [place] Family Medicine [address] [place] [address] ProviderFarhan MD [address] [place] [address] Social History Tobacco Use Types [...] - Farhan ProviderMD - 10/30/2020 6:00 AM PLANT PHYSIOLOGY TEACHER Pain Assessment Entered On: 10/30/2020 20:01 EST [...]
--- OUTSIDE RECORDS SUMMARY | 2025-08-17 16:12 | XMS_ITS | Encounter Summary ---
Author Organization [employer] ([place], [place], [place], [place]) Address [address] [place] [address] Care Team Providers Care Certified Medical Transcriptionist Name Role Phone Unavailable Primary Care Provider Unavailabl e Encounter Details Date Type Department Care Team (Late st Contact Info) Description 10/29/2020 Transcribed Document [facility] [place] Family Medicine [address] [place] [address] ProviderFarhan MD [address] [place] [address] Social History Tobacco Use Types [...] - Farhan ProviderMD - 10/29/2020 8:39 AM SENIOR DIRECTOR MARKETING [facility] Main OR PACU Summary Primary Physician: ADDIE VELIZ MD-[facility] Finalized Date/Time: 10/29/20 12:13:32 Pt. Name: FRANSISCO CRAVEN/Sex: 1960 Male Med Rec #: [id number] Physician: ADDIE VELIZ MD-SN Financial #: [id number] Pt. Type: I Room/Bed: / Admit/Disch: 09/22/20 10:37:00 - Institution: [facility] Main OR PACU I Case Times Entry 1 In PACU I 10/29/20 10:38:00 Ready for PACU 10/29/20 12:00:00 Discharge Discharge from PACU 10/29/20 12:00:00 I Last Modified By: DANIELLE CLANCY RN 10/29/20 12:13:15 Finalized By: DANIELLE CLANCY, RN Document Signatures Signed By: DANIELLE CLANCY RN 10/29/20 12:13 Electronically signed by Kailey [facility] Conversion Bluing Oven Tender Cerner at 02/08/2023 12:20 PM CDT documented in this encounter Plan of Treatment Not on file documented as of this encounter Visit Diagnoses Not on filedocumented in this encounter
--- OUTSIDE RECORDS SUMMARY | 2025-08-17 16:12 | XMS_ITS | Encounter Summary ---
Author Organization [employer] ([place], [place], [place], [place]) Address [address] [place] [address] Care Team Providers Care Asbestos Coverer Name Role Phone Unavailable Primary Care Provider Unavailabl e Encounter Details Date Type Department Care Team (Late st Contact Info) Description 10/29/2020 Transcribed Document [facility] [place] [facility] [place] [address] ProviderFarhan MD [address] [place] [address] Social History Tobacco Use Types [...] Farhan ProviderMD - 10/29/2020 8:39 AM TECHNICAL PROJECT COORDINATOR [facility] Main OR IntraOp Summary Primary Physician: ADDIE VELIZ MD-SNU Finalized Date/Time: 10/30/20 16:24:05 Pt. Name: FRANSISCO CRAVEN/Sex: 1960 Male Med Rec #: [id number] Physician: ADDIE VELIZ MD-SNU Financial #: [id number] Pt. Type: I Room/Bed: [facility]/ Admit/Disch: 10/29/20 12:20:00 - Institution: [facility] IntraOp Case Attendance Entry 1 Entry 2 Entry 3 Case Attendee ADDIE VELIZ MD-SNU WASSON, SANDRA D, RN CLARI NORRIS RN Role Performed Surgeon/Proceduralist, Sand Molder, First Sand Molder, Second First Time In 10/29/20 08:13:00 10/29/20 [...] APRN Role Performed Scrub, First Physician assistant hall director SLOTS MANAGER/Nurse Bending Machine Operator Time In 10/29/20 08:13:00 10/29/20 08:13:00 10/29/20 [...] OTHER, ATTENDEE #1 ROCIO ALCALA RN Diagnostic Associate Professor Of Library Media Role Performed Research Anthropologist Vendor Sand Molder, Second Time In 10/29/20 08:13:00 10/29/20 08:13:00 [...] Case Attendee PROMISE ZAMORANO Sawyer, Susan, DAVID-GENI Head And Neck Surgeon Role Performed SLOTS MANAGER/Nurse Bending Machine Operator Research Anthropologist Time In 10/29/20 09:43:00 10/29/20 09:44:00 Time Out 10/29/20 09:55:00 10/29/20 10:14:00 Procedure Lumbar Fusion Posterior Lumbar Fusion Posterior 3 Level 3 Level Other Attendee SLOTS MANAGER BREAK RELIEF RT BREAK RELIEF Superficial Wound Closed By: Last Modified By: TAE HERNANDEZ, TAE BARRIOS, RN 10/29/20 09:44:46 10/29/20 09:44:46 [facility] IntraOp Case Attendance Audit 10/29/20 10:35:34 Covering Machine Tender: WASSONSY Modifier: WASSONSY 1 <+> Time Out [...] Lumbar Fusion Posterior 3 Level 10/29/20 10:19:58 Covering Machine Tender: WASSONSY Modifier: WASSONSY 7 <-> Time Out 10/29/20 09:44:00 7 <*> Procedure Lumbar Fusion Posterior 3 Level 11 <+> Time Out 11 <*> Procedure Lumbar Fusion Posterior 3 Level 10/29/20 10:11:32 Covering Machine Tender: WASSONSY Modifier: WASSONSY 7 <+> Time Out 7 <*> Procedure Lumbar Fusion Posterior 3 Level 10/29/20 09:55:51 Covering Machine Tender: WASSONSY Modifier: WASSONSY 10 <*> Time Out 10/29/20 10:03:00 10 <*> Procedure Lumbar Fusion Posterior 3 Level 10/29/20 09:44:46 Covering Machine Tender: WASSONSY Modifier: WASSONSY <+> 10 Case Attendee <+> 10 Role Performed <+> 10 Time In <+> 10 Time Out <+> 10 Procedure <+> 10 Other Attendee <+> 11 Case Attendee <+> 11 Role Performed <+> 11 Time In <+> 11 Procedure <+> 11 Other Attendee 10/29/20 08:40:39 Covering Machine Tender: WASSONSY Modifier: WASSONSY <+> 9 Case Attendee <+> 9 Role Performed <+> 9 Time In <+> 9 Time Out <+> 9 Procedure 10/29/20 08:39:35 Covering Machine Tender: WASSONSY Modifier: WASSONSY 1 <*> Procedure Lumbar [...] Lumbar Fusion Posterior 3 Level 10/29/20 08:31:47 Covering Machine Tender: WASSONSY Modifier: WASSONSY 1 <+> Time In [...] <+> 8 Procedure <+> 8 Other Attendee [facility] IntraOp Case Times Entry 1 Patient In Room Time 10/29/20 08:13:00 Out Room Time 10/29/20 10:35:00 Anesthesia Start Time 10/29/20 08:13:00 Stop Time 10/29/20 10:35:00 Surgery / Procedure Times Start Time 10/29/20 08:39:00 Stop Time 10/29/20 10:27:00 Last Modified By: TAE HERNANDEZ RN 10/29/20 10:28:15 [facility] IntraOp Case Times Audit 10/29/20 10:35:30 Covering Machine Tender: WASSONSY Modifier: WASSONSY <+> 1 Out Room Time <+> 1 Stop Time 10/29/20 10:28:15 Covering Machine Tender: WASSONSY Modifier: WASSONSY <+> 1 Stop Time 10/29/20 08:39:38 Covering Machine Tender: WASSONSY Modifier: WASSONSY <+> 1 Start Time [facility] IntraOp Cautery Entry 1 Entry 2 ESU Identification Cautery Type Monopolar ESU BiPolar ESU Cautery Type Comments ID Number [id number] ID Type Hospital Number Hospital Number Cautery [...] SANDRA D, RN 10/29/20 08:47:23 10/29/20 08:47:23 [facility] IntraOp Cautery Audit 10/29/20 08:49:38 Covering Machine Tender: WASSONSY Modifier: WASSONSY 1 <+> Grounding Pad Site 1 <*> Grounding Pad Applied By TAE HERNANDEZ RN [facility] IntraOp Communication Entry 1 Communication To Family/Significant other Comment START Communication By ROCIO ALCALA RN Date and Time 10/29/20 08:40:00 Last Modified By: TAE HERNANDEZ RN 10/29/20 08:40:48 [facility] IntraOp Counts Verification Entry 1 Entry [...] [facility] IntraOp Counts Verification Audit 10/29/20 10:20:15 Covering Machine Tender: WASSONSY Modifier: WASSONSY <+> 2 Procedure <+> 2 Count Type <+> 2 Counts Verification Sequence <+> 2 Count Results <+> 2 Count Performed By (Scrub) <+> 2 Count Performed By (RN) [facility] IntraOp Counts Final Entry 1 Procedure Lumbar Fusion Posterior 3 Level Final Count Info Count Type Sponge, Sharps, Miscellaneous Counts Verification Skin Closure/end of Sequence procedure Count Results Correct, surgeon notified Counts Performed By Count Performed By RAFAEL HAAS ST (Scrub) Count Performed By CLARI NORRIS RN (RN) Last Modified By: TAE HERNANDEZ RN 10/29/20 10:24:34 [facility] IntraOp Cultures and Spec Summary Entry 1 Cultrures and Specimens Specimen Ordered: Yes Test(s) Routine/Path-Lab Requested/Final Disposition Last Modified By: TAE HERNANDEZ RN 10/29/20 09:15:02 General Comments: A. EXPLANTED HARDWARE [facility] IntraOp Delays Entry 1 Delay Reason Surgeon late - did not call Duration 13 Minute(s) Last Modified By: TAE HERNANDEZ RN 10/29/20 08:50:02 [facility] IntraOp Departure from OR Entry 1 Integumentary Assessment Integumentary WDL Assessment WDL Transfer/Handoff Transfer to PACU Phase I Handoff Method Phone call Handoff Reported to Gabo Lim RN Post-op Transport Stretcher/Marilyn Via Patient Transport KAREN PEREA, Accompanied by MARY HERNANDEZ MEGHAN, PA Last Modified By: TAE HERNANDEZ RN 10/29/20 10:12:58 [facility] IntraOp Departure from OR Audit 10/29/20 10:12:58 Covering Machine Tender: WASSONSY Modifier: WASSONSY <+> 1 Handoff Reported to 10/29/20 08:50:26 Covering Machine Tender: WASSONSY Modifier: WASSONSY 1 <*> Post-op Transport Via Bed (including specialty) [facility] IntraOp Drains and Tubes Entry 1 Device Type Alcon Engel round drain Size 15 FR Drain/Tube Activity Inserted Drain/Tube Suction Bulb Drain/Tube Drainage Serosanguineous Device Location OP SITE Method of Drainage Compression Last Modified By: TAE HERNANDEZ RN 10/29/20 10:09:39 [facility] IntraOp Dressing and Packing Entry 1 Type Dressing Location back Wound Dressing Item Other Applied By CIRO HERNANDEZ PA Other Comments NEOSPORIN OINTMENT, COVADERMS Last Modified By: TAE HERNANDEZ RN 10/29/20 09:41:56 [facility] IntraOp Fire Risk Assessment Entry 1 Fire Info Surgical Site or 0- No Incision Above the Xyphoid Open O2 Source 0- No (Mask or Cannula) Available Ignition 1- Yes (ESU, Laser, Light Source) Fire Risk 1 Assessment Score Fire Score Fire Risk Yes Assessment Complete Fire Risk TAE HERNANDEZ timber estimator Verified By Fire Risk 10/29/20 08:42:00 Assessment Verified Date/Time Fire Risk Standard Fire Yes Safety Precautions Followed Last Modified By: TAE HERNANDEZ RN 10/29/20 08:42:30 [facility] IntraOp General Case Respiratory Medicine Physician 1 Case Information OR OR 10 [facility] Case Level 1 Room Verified Yes Wound Class I - Clean Specialty SN Neurosurgery Anesthesia Type General ASA Class 3 Diagnosis Preop Diagnosis LUMBAR SPONDYLOLISTHESIS Postop Same As Preop No Postop Diagnosis PLEASE SEE MD NOTES. Last Modified By: TAE HERNANDEZ RN 10/29/20 08:45:22 [facility] IntraOp General Case Data Audit 10/29/20 08:51:32 Covering Machine Tender: WASSONSY Modifier: WASSONSY 1 <*> Preop Diagnosis LUMBAR STENOSIS 10/29/20 08:46:36 Covering Machine Tender: WASSONSY Modifier: WASSONSY <+> 1 Preop Diagnosis [facility] IntraOp Implant Log Entry 1 Entry 2 Entry 3 Type Tissue Implant Implant (Synthetic) Implant (Synthetic) (Biologic) Implant Log Implant Type Hardware Hardware Tissue Implant Type Bone Implant BONE VIVIGEN FORMABLE SPACR OPAL-RSLV SCR JEREMIAS FIX Identification CELL [id number] Description Implant Quantity 1 2 4 Implant Site OP SITE OP SITE OP SITE Implant Identification Model Number Implant [id number] Identification Serial Number Implant Identification Lot Number Implant Lifenet:Lifenet Synthes:Synthes J&J:Depuy:Depuy Spine Identification Transplant Srv Usa:Spine Dental Ceramist Assistant Name: Implant [id number] Identification Catalog Number Implant Size Implant Has an Yes Expiration Date Implant Expiration 09/30/21 Date Wasted Radioactive Material Time Implanted Tissue Implant Continue for Tissue Implant Documentation Tissue Identification Number Graft Prep Per Dental Ceramist Assistant Instructions: Tissue Preparation Method: Reconstitution Solution: Reconstitution Solution Lot Number Reconstitution Solution Expiration Date: Thawing Solution Thawing Solution Lot Number Thawing Solution Expiration Date Preparation Materials, Other Preparation Materials, Other Lot Number Preparation Materials, Other Expiration Date Tissue Prepared/Processed By Dental Ceramist Assistant Paperwork Completed Implant Type Comment Last Modified By: TAE HERNANDEZ, TAE BARRIOS RN WASSON, SANDRA D, RN 10/29/20 09:41:23 10/29/20 10:03:44 10/29/20 10:03:44 Entry 4 Entry 5 Entry 6 Type Implant (Synthetic) Implant (Synthetic) Implant (Synthetic) Implant Log Implant Type Hardware Hardware Hardware Tissue Implant Type Implant MIS FELA PLY SCRW SET LENNOX PRE LOAD [id number] LENNOX PRE LOAD [id number] Identification [id number] Description Implant Quantity 6 1 1 Implant Site OP SITE OP SITE OP SITE Implant Identification Model Number Implant Identification Serial Number Implant Identification Lot Number Implant J&J:Depuy:Depuy Spine J&J:Depuy:Depuy Spine J&J:Depuy:Depuy Spine Identification Dental Ceramist Assistant Name: Implant [id number] Identification Catalog Number Implant Size Implant Has an Expiration Date Implant Expiration Date Wasted Radioactive Material Time Implanted Tissue Implant Continue for Tissue Implant Documentation Tissue Identification Number Graft Prep Per Dental Ceramist Assistant Instructions: Tissue Preparation Method: Reconstitution Solution: Reconstitution Solution Lot Number Reconstitution Solution Expiration Date: Thawing Solution Thawing Solution Lot Number Thawing Solution Expiration Date Preparation Materials, Other Preparation Materials, Other Lot Number Preparation Materials, Other Expiration Date Tissue Prepared/Processed By Dental Ceramist Assistant Paperwork Completed Implant Type Comment Last Modified By: TAE HERNANDEZ RN WASSON, SANDRA D RN TAE HERNANDEZ RN 10/29/20 10:03:44 10/29/20 10:03:44 10/29/20 10:03:44 [facility] IntraOp Implant Log Audit 10/29/20 10:03:44 Covering Machine Tender: DAVIDARLEN Modifier: WASSONSY <+> 2 Implant Identification Description <+> 2 Implant Identification Dental Ceramist Assistant Name: <+> 2 Implant Site <+> 2 Implant Quantity <+> 2 Implant Identification Catalog Number <+> 2 Implant Type <+> 2 Type <+> 3 Implant Identification Description <+> 3 Implant Identification Dental Ceramist Assistant Name: <+> 3 Implant Site <+> 3 Implant Quantity <+> 3 Implant Identification Catalog Number <+> 3 Implant Type <+> 3 Type <+> 4 Implant Identification Description <+> 4 Implant Identification Dental Ceramist Assistant Name: <+> 4 Implant Site <+> 4 Implant Quantity <+> 4 Implant Identification Catalog Number <+> 4 Implant Type <+> 4 Type <+> 5 Implant Identification Description <+> 5 Implant Identification Dental Ceramist Assistant Name: <+> 5 Implant Site <+> 5 Implant Quantity <+> 5 Implant Identification Catalog Number <+> 5 Implant Type <+> 5 Type <+> 6 Implant Identification Description <+> 6 Implant Identification Dental Ceramist Assistant Name: <+> 6 Implant Site <+> 6 Implant Quantity <+> 6 Implant Identification Catalog Number <+> 6 Implant Type <+> 6 Type [facility] IntraOp Intraoperative Assessment Entry 1 Handoff [...] Modified By: TAE HERNANDEZ RN 10/29/20 08:51:48 [facility] IntraOp Intraoperative Assessment Audit 10/29/20 08:51:48 Covering Machine Tender: HOPEIANARLEN Modifier: DAVIDSY 1 <*> Skin Assessment Verified Yes 1 <*> Handoff Method Bedside/Face to face [facility] IntraOp Intraoperative Equipment Entry 1 Type Equipment Equipment Equipment Abelardo Suction System ID Number [id number] Setting 200 MM HG Intraop Monitoring Electrocardiogram Five lead placement (ECG) Electrode Placement Blood Pressure Non-Invasive BP Device Source Blood Pressure Arm, right upper Location Pulse Oximeter Hand, left Probe Site Antiembolic Devices Antiembolic Devices Sequential compression device, knee high Antiembolic Device Bilateral Location Antiembolic Device [id number] ID Number Antiembolic Device standard Setting Scopes Photo/Video Documentation Photo No Video No Last Modified By: TAE HERNANDEZ RN 10/29/20 08:46:20 [facility] IntraOp Intraoperative Equipment Audit 10/29/20 08:52:26 Covering Machine Tender: WASSONSY Modifier: WASSONSY 1 <+> ID Number 1 <*> Setting 200 1 <+> Electrocardiogram (ECG) Electrode Placement 1 <+> Blood Pressure Location 1 <+> Pulse Oximeter Probe Site 1 <+> Blood Pressure Source 1 <+> Antiembolic Device ID Number [facility] IntraOp Medication Admin Entry 1 Entry 2 Entry 3 Medication/Irrigant thrombin 5000units SPNG SURGFOAM SEALR AQUAMANTYS BIPLR topical powder - [id number] [id number] Combo Med List Time Administered Route of topical TOPICAL OTHER Administration Dose Dose 5000 1 Unit of Measure units pkt Volume qs Administered By ADDIE VELIZ MD-ADDIE PASCUAL MD-ADDIE PASCUAL MD-SNNegrita Procedure Irrigation Irrigant Volume In Irrigant Volume Out Last Modified By: TAE HERNANDEZ, TAE BARRIOS, TAE BARRIOS RN 10/29/20 08:53:36 10/29/20 08:53:36 10/29/20 08:53:36 Entry 4 Medication/Irrigant Neosporin 15Gm ointment - [id number] Combo Med List Time Administered Route of TOPICAL Administration Dose Dose 1 Unit of Measure pkt Volume Administered By CIRO HERNANDEZ PA Procedure Irrigation Irrigant Volume In Irrigant Volume Out Last Modified By: TAE HERNANDEZ RN 10/29/20 08:53:36 [facility] IntraOp Medication Admin Audit 10/29/20 08:53:36 Covering Machine Tender: WASSONSY Modifier: WASSONSY 1 <*> Medication/Irrigant thrombin 5000units topical powder - [id number] <+> 2 Medication/Irrigant <+> 2 Route of Administration <+> 2 Administered By <+> 2 Dose <+> 2 Unit of Measure <+> 3 Medication/Irrigant <+> 3 Route of Administration <+> 3 Administered By <+> 4 Medication/Irrigant <+> 4 Route of Administration <+> 4 Administered By <+> 4 Dose <+> 4 Unit of Measure [facility] IntraOp Patient Positioning Entry 1 Procedure [...] Modified By: TAE HERNANDEZ RN 10/29/20 09:05:55 [facility] IntraOp Sign In Entry 1 Patient, [...] Modified By: TAE HERNANDEZ RN 10/29/20 08:54:11 [facility] IntraOp Sign In Audit 10/29/20 08:54:11 Covering Machine Tender: HOPEIANSY Modifier: WASSONSY 1 <*> Surgical Site Marked by person Yes performing procedure 1 <*> Difficult Airway/Aspiration Risk No 1 <*> Blood Loss Risk No 1 <*> Blood Identifiers Verified Per Not applicable Policy [facility] IntraOp Sign Out Entry 1 RN [...] Modified By: TAE HERNANDEZ RN 10/29/20 09:06:53 [facility] IntraOp Sign Out Audit 10/29/20 10:35:47 Covering Machine Tender: MYAH Modifier: WASIANSY <+> 1 RN Sign Out Signature Date/Time [facility] IntraOp Skin Prep Entry 1 Procedure Lumbar Fusion Posterior 3 Level Prescribed Yes Pre-Surgical Prep Completed Prep Area back Intraop Prep Integumentary WDL Assessment WDL Prep Agents DuraPrep Prep by TAE HERNANDEZ, RN Hair Removal Methods No hair removal performed Last Modified By: TAE HERNANDEZ RN 10/29/20 08:45:47 [facility] IntraOp Surgical Procedures Entry 1 Procedure Lumbar Fusion Posterior 3 Level Additional (L3-5 PLIF USING AIRO) Procedure Description Primary Procedure Yes Primary Surgeon ADDIE VELIZ MD-SNU Start 10/29/20 08:39:00 Stop 10/29/20 10:27:00 Anesthesia Type General Specialty SN Neurosurgery Wound Class I - Clean Last Modified By: TAE HERNANDEZ RN 10/29/20 09:08:03 General Comments: CLLINDA [facility] IntraOp Surgical Procedures Audit 10/29/20 10:28:18 Covering Machine Tender: MYAH Modifier: WASSONSY 1 <*> Stop [facility] IntraOp Temp Regulation Devices Entry 1 Temp Regulation Temperature Forced Air Warming Regulation Device device Temperature 26161 Regulation Device Serial/Unit Number Temperature Upper body Regulation Site Temperature Device 43 C Setting Temperature KAREN PEREA APRN Regulation Device Applied by Last Modified By: TAE HERNANDEZ RN 10/29/20 08:46:05 [facility] IntraOp Temp Regulation Devices Audit 10/29/20 09:06:09 Covering Machine Tender: MYAH Modifier: MYAH <+> 1 Temperature Regulation Device Serial/Unit Number <+> 1 Temperature Device Setting [facility] IntraOP Time Out Entry 1 Procedure [...] Modified By: TAE HERNANDEZ RN 10/29/20 08:44:19 [facility] IntraOp X-Ray and Images Entry 1 X-Ray/Imaging Type Other Fluoroscopy Type Other Site back Automated Access Systems Technician Name Delma Escobedo, Diagnostic Associate Professor Of Library Media Protective Devices Yes Used X-Ray and Imaging brainlab intraoperative Comment ct scanner Last Modified By: TAE HERNANDEZ RN 10/29/20 08:46:47 [facility] IntraOp X-Ray and Images Audit 10/29/20 09:06:27 Covering Machine Tender: MYAH Modifier: MYAH <+> 1 Automated Access Systems Technician Name Case Comments <None> Finalized By: DENNYS SANTO Document Signatures Signed By: TAE HERNANDEZ RN 10/29/20 10:35 DENNYS SANTO 10/30/20 16:24 Unfinalized History Date/Time Username Reason for Unfinalizing Freetext Reason for Unfinalizing 10/30/20 16:22 [email or web address] Correct Billing Electronically signed by Kailey [facility] Conversion Philosophy Specialist Cerner at 02/08/2023 12:31 PM CDT documented in this encounter Plan of Treatment Not on file documented as of this encounter Visit Diagnoses Not on filedocumented in this encounter
--- OUTSIDE RECORDS SUMMARY | 2025-08-17 16:12 | XMS_ITS | Encounter Summary ---
Author Organization [employer] ([place], [place], [place], [place]) Address [address] [place] [address] Care Team Providers Care Tracer Clerk Name Role Phone Unavailable Primary Care Provider Unavailabl e Encounter Details Date Type Department Care Team (Late st Contact Info) Description 10/29/2020 Transcribed Document [facility] [place] Family Medicine [address] [place] [address] ProviderFarhan MD [address] [place] [address] Social History Tobacco Use Types [...] - Farhan ProviderMD - 10/29/2020 8:[address] FREIGHT CONDUCTOR [facility] Main OR Preop Summary Primary Physician: ADDIE VELIZ MD-SNU Finalized Date/Time: 10/29/20 12:44:39 Pt. Name: FRANSISCO CRAVEN/Sex: 1960 Male Med Rec #: [id number] Physician: ADDIE VELIZ MD-TANVIR Financial #: [id number] Pt. Type: I Room/Bed: 647/1 Admit/Disch: 10/29/20 12:20:00 - Institution: [facility] PreOp Case Times Entry 1 In Preop 10/29/20 06:05:00 Ready for Holding n/a Room Patient Ready for 10/29/20 07:31:00 Surgery Patient Out of Preop 10/29/20 08:11:00 Patient Out of n/a Holding Room Last Modified By: PEDRO Briceño RN 10/29/20 12:44:37 [facility] PreOp Case Times Audit 10/29/20 12:44:37 Quick Mixer Operator: CHRISTY Modifier: WILSONDL <+> 1 Patient Out of Preop 10/29/20 07:31:08 Quick Mixer Operator: CHRISTY Modifier: WILSONDL <+> 1 Patient Ready for Surgery Finalized By: PEDRO Briceño, RN Document Signatures Signed By: PEDRO Briceño RN 10/29/20 12:44 Electronically signed by Kailey [facility] Conversion Account Planner Cerner at 02/08/2023 12:23 PM CDT documented in this encounter Plan of Treatment Not on file documented as of this encounter Visit Diagnoses Not on filedocumented in this encounter
--- OUTSIDE RECORDS SUMMARY | 2025-08-17 16:12 | XMS_ITS | Encounter Summary ---
Author Organization [employer] ([place], [place], [place], [place]) Address [address] [place] [address] Care Team Providers Care Medical Administrator Name Role Phone Unavailable Primary Care Provider Unavailabl e Encounter Details Date Type Department Care Team (Late st Contact Info) Description 10/29/2020 Transcribed Document [facility] [place] [facility] [place] [facility] [place] [address] ProviderFarhan MD [address], [place] [...] Historical ProviderMD - 10/29/2020 3:35 PM INFORMATION TECHNOLOGY PROJECT MANAGER Treatment Intervention, PT Entered On: 10/31/2020 9:54 [...] Chase PHYSICAL THERAPIST - 10/31/2020 9:49 EST [facility] Goals Mobility/Bed Mobility LTG PT Grid Goal [...]
--- OUTSIDE RECORDS SUMMARY | 2025-08-17 16:12 | XMS_ITS | Encounter Summary ---
Author Organization [employer] ([place], [place], [place], [place]) Address [address] [place] [address] Care Team Providers Care Manager Social Services Name Role Phone Unavailable Primary Care Provider Unavailabl e Encounter Details Date Type Department Care Team (Late st Contact Info) Description 10/29/2020 Transcribed Document [facility] Neurology - [address] [facility] [address] [place] [address] Waylon Green Jr., MD [address] [facility] [address] [place] [address] Social History Tobacco Use Types [...] Airo intraoperative CT scan and BrainLAB neuronavigation. STOCK AND STATION AGENT: Enriqueta Carrillo PA-C. ANESTHESIA: General endotracheal anesthesia. [...] These were Steinmann pins, placed with a [employer] drill under navigation. We used a pre-existing [...] stab incision was used to tunnel a 15-German round epidural JESUS drain. A drain stitch [...] hardware, placement of new hardware, wound closure. /[id number] Waylon Green Jr, MD RDO/AQ / RDO / MODL /[id number] documented in this encounter Plan of Treatment Not on file documented as of this encounter Visit Diagnoses Not on filedocumented in this encounter
--- OUTSIDE RECORDS SUMMARY | 2025-08-17 16:12 | XMS_ITS | Encounter Summary ---
Author Organization [employer] ([place], [place], [place], [place]) Address [address] [place] [address] Care Team Providers Care Orthodontic Technician Name Role Phone Unavailable Primary Care Provider Unavailabl e Encounter Details Date Type Department Care Team (Late st Contact Info) Description 10/30/2020 Transcribed Document [facility] [place] [facility] [place] [address] ProviderFarhan MD [address] [place] [address] Social History Tobacco Use Types [...] - Historical ProviderMD - 10/30/2020 10:51 AM INVASIVE PHYSICIAN UM Authorization Entered On: 10/30/2020 10:51 EST Performed On: 10/30/2020 10:51 EST by Ca Amaya Rn-Utilization Review Primary Insurance Authorization Authorization and Policy Numbers : Insurance 1 Health Plan: [employer] CHOICE PPO Policy Number: [id number] Authorization Number: Insurance Primary Name : [employer] Choice [id number] Authorization Status-Primary : Pending Auth/Referral Contact Name-Primary : Alfredo Casas Reference Number-Primary : [id number] Authorization Number-Primary : Pending Authorized Service Begin [...] or availity as of yet (DERICK SHIPMAN, Electrical Contacts Adjuster 10/28/2020 12:39) Ca Amaya, Rn-Utilization Review - 10/30/2020 10:51 EST Electronically signed by Kailey, [facility] Conversion Driver Medic Cerner at 02/08/2023 12:23 PM CDT documented in this encounter Plan of Treatment Not on file documented as of this encounter Visit Diagnoses Not on filedocumented in this encounter
--- OUTSIDE RECORDS SUMMARY | 2025-08-17 16:12 | XMS_ITS | Encounter Summary ---
Author Organization [employer] ([place], [place], [place], [place]) Address [address] [place] [address] Care Team Providers Care Sulfide Head Operator Name Role Phone Unavailable Primary Care Provider Unavailabl e Encounter Details Date Type Department Care Team (Late st Contact Info) Description 10/29/[address] [facility] [place] Family [place] [facility] [place] [address] ProviderFarhan MD [address] [place] [address] Social History Tobacco Use Types [...] - Farhan ProviderMD - 10/29/2020 10:34 AM PRINT ROOM WORKER Pain Assessment Entered On: 10/30/2020 20:02 EST [...] version of the form. Electronically signed by Kailey, [facility] Conversion Spinning And Winding Supervisor Cerner at 02/09/2023 11:58 AM CDT documented in this encounter Plan of Treatment Not on file documented as of this encounter Visit Diagnoses Not on filedocumented in this encounter
--- OUTSIDE RECORDS SUMMARY | 2025-08-17 16:12 | XMS_ITS | Clinical Summary ---
Author Organization [facility] Address [address] [place] [address] Care Team Providers Care Drivematic Machine Operator Name Role Phone Maycol Erickson PA-C Primary Care Provider [phone] Allergies Active Allergy Reactions Criticality Noted Date [...] Hemoglobin A1C 5.1 4.00 - 6.00 % [facility] Comment: DF by IF @ 10/12/2014 11:49 The [place] [employer] recommends maintenance of Hemoglobin A1C at 7.0% or lower. Goals for Hemoglobin A1C reduction may need to be modified if hypoglycemia is a problem. Mean Bld Glu Estim. 93 mg/dL [facility] Blood specimen (specimen) 10/12/2014 10:50 AM EST Narrative [facility] - 10/12/2014 11:49 AM EST Specimen Type: Blood [facility] MD LAB BLOOD ORDERABLE S Final Result [facility] [address] [place] [address], from Last 3 Months or Most Recently Relevant to Health Maintenance Insurance [address] [address] MEDICARE ADVANTAGE Care Teams Drivematic Machine Operator Relationship Specialty Start Date End Date Maycol Erickson [place] [address] (work) PCP - General Physician Heel Top Lift Splitter 08/15/16
--- OUTSIDE RECORDS SUMMARY | 2025-08-17 16:12 | XMS_ITS | Encounter Summary ---
Author Organization [employer] ([place], [place], [place], [place]) Address [address] [place] [address] Care Team Providers Care Furnace Caretaker Name Role Phone Unavailable Primary Care Provider Unavailabl e Encounter Details Date Type Department Care Team (Late st Contact Info) Description 10/30/2020 Transcribed Document [facility] [place] [address] [place] [address] ProviderFarhan MD [address] [place] [address] Social History Tobacco Use Types [...] - Historical ProviderMD - 10/30/2020 10:45 AM REFUELING RAMPMAN UM Authorization Entered On: 10/30/2020 10:45 EST Performed On: 10/30/2020 10:45 EST by Ca Amaya Rn-Utilization Review Primary Insurance Authorization Authorization and Policy Numbers : Insurance 1 Health Plan: [employer] CHOICE PPO Policy Number: [id number] Authorization Number: Insurance Primary Name : [employer] Choice [id number] Auth/Referral Contact Name-Primary : Alfredo Casas Authorization [...] or availity as of yet (DERICK SHIPMAN, Loading Manager 10/28/2020 12:39) Ca Amaya, Rn-Utilization Review - 10/30/2020 10:45 EST Electronically signed by [facility], [facility] Conversion Editor Continuity And Script Cerner at 02/08/2023 12:31 PM CDT documented in this encounter Plan of Treatment Not on file documented as of this encounter Visit Diagnoses Not on filedocumented in this encounter
--- OUTSIDE RECORDS SUMMARY | 2025-08-17 16:12 | XMS_ITS | Data Portability ---
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 [email or web address] Not available 12/27/2022 08:32:27 01/23/2023 01/23/2023 Unfortunately [...] with hardware revision/removal of from L3-L5 using Process and Plant [employer] neuro navigation and arrow intraoperative CT scan. [...] - standing with weights 2022 023 MILA [facility], [address] [place], [address], 3 17:06:21 Medication Orders None recorded. Patient TargetsNo targets recorded. Patient InstructionsNo instructions recorded. Reason for Referral None Reported. Results Created Date Observation Date Name Description Value Unit Range Abnormal Flag Note LastModifiedBy Organization Detail LastModifiedTime 12/14/19 21 12/14/2020 XR, lumbo sacra l spine , 2 or 3 view [facility] [address] [place] [address] [employer] [place] [address] Paticecil t Name: FRANSISCO tyler : [phone] [...] Catalan MD on 021 3:04 PM [email or web address] [facility] [address] [place], [address], 12/31/2020 12:00:24 02/10/20 21 02/09/2021 XR, lumbo sacra l spine , 2 or 3 view [facility] [address] [place] [address] [place] [address] Patien t Name: FRANSISCO tyler : 964 Matthew [...] Edwina Catalan MD on 021 9:[address] Radiology [facility] [address] [place] [address], [address], 03/04/2021 13:47:01 03/17/20 21 03/17/2021 XR, lumbo sacra l spine , 2 or [address] [address] Paticecil tyler Name: FRANSISCO tyler : 964 [...] Edwina Catalan MD on 021 2:[email or web address] Radiology [facility] [address] [place] [address], [address], 04/03/2021 17:13:52 10/27/19 22 10/10/2021 elect romyo gram + nerve condu ction study No observ ation record ed. [email or web address] [facility] [address], [place], [place], [address], 12/26/2022 12:45:46 12/27/19 23 12/26/2022 XR, lumbo sacra l spine , 4 or more view [address] [employer] [facility] [place] [address] Matthew tyler Name: FRANSISCO tyler : 89 [...] Edwina Catalan MD on 12/27/19 5:01 PM [email or web address] [facility] Rad[facility] [address] [place], [address], 01/12/2023 15:34:52 01/18/20 23 01/17/2023 MRI, lumba r spine , w/wo contr ast [place] [address] [employer] [place] [address] Matthew tyler Name: FRANSISCO tyler : [phone] [...] status post discec shoaib, interb lola graft, business liaison manager ior fusion and brittney ctomy from L3 throug h S1. There is parama gnetic artifa ct from the pedicl e screws and business liaison manager ior fusion hardwa re from L3 throug h L5. There is prior remova l of screws from the S1 level. There is dextro curvat ure of the lumbar spine. There is mild business liaison manager ior listhe sis of L1 on L2 [...] strati on of [address] ([facility] [address]-0 2), there is no abnorm al [...] Denys reed MD on 023 11:31 AM [email or web address] [facility] [address] [place], [address], 01/17/2023 17:55:31 10/19/20 23 10/19/2023 MRI, lumba r spine , w/o contr ast [address] [address] Matthew tyler Name: FRANSISCO tyler : 89 [...] status post discec shoaib, interb lola graft, business liaison manager ior fusion and brittney ctomie s from L3 throug h S1. There is parama gnetic artifa ct from the interb lola spacer s, and the pedicl e screws and business liaison manager ior fusion rods from L3 throug h L5. There is prior remova l of pedicl e screws at the S1 level. There is dextro curvat ure from L1 throug h L4, and levocu rvatur e at L4-L5. There is mild business liaison manager ior listhe sis of L1 on L2 [...] reed MD on 2022 3:48 PM [email or web address] [facility] Radiology [facility] [address] [place] [address], [address], 11/14/2023 20:28:44 10/19/20 23 10/19/2023 CT, lumba r spine , w/o contr ast [address] [address] Matthew tyler Name: FRANSISCO tyler : 89 [...] status post discec shoaib, interb lola graft, business liaison manager ior fusion and brittney ctomie s from L3 throug h S1. There is beam harden ing artifa ct from the interb lola spacer s, and the pedicl e screws and business liaison manager ior fusion rods from L3 throug h L5. There is no eviden ce of loosen ing of the hardwa re. There is prior remova l of pedicl e screws at the S1 level. There is dextro curvat ure from L1 throug h L4, and levocu rvatur e at L4-L5. There is mild business liaison manager ior listhe sis of L1 on L2 [...] Denys reed MD on 2022 3:[address] Radiology [address], [address], 11/14/2023 20:28:43 Result Notes Documentation Provider Name and Address Organization Details Recorded Time Xr, Lumbosacral Spine, 2 Or 3 View : [address] [address] Patient Name: FRANSISCO SILVESTRE Patient : 1960 [...] By: Sharif Catalan MD E VELIZ MD [address] [place] [address], [address], [facility] 12/31/2020 12:00:24 Xr, Lumbosacral Spine, 2 Or 3 View : [address] [address] Patient Name: FRANSISCO SILVESTRE Patient : 1960 [...] By: Sharif Catalan MD E VELIZ MD [address] [place] [address], [address], [facility] 03/04/2021 13:47:01 Xr, Lumbosacral Spine, 2 Or 3 View : [place] [address] Patient Name: FRANSISCO SILVESTRE Patient : 1960 [...] By: Sharif Catalan MD E VELIZ MD [address] [place] [address], [address], [facility] 04/03/2021 17:13:52 Xr, Lumbosacral Spine, 4 Or More View : [place] [address] Patient Name: FRANSISCO SILVESTRE Patient : 1960 [...] Interpreted By: Sharif Catalan MD LIA WELLS, FINE ARTS TEACHER [address] [place] [address], [phone] 01/12/2023 15:34:52 Mri, Lumbar Spine, W/wo Contrast : [facility] [address] [place] [address] Patient Name: FRANSISCO SILVESTRE Patient : 1960 [...] After intravenous administration of 10 mL Gadavist ([facility] [address]-44), there is no abnormal enhancement in the [...] By: Evangelist Lazar MD LIA WELLS APRN [address] [place] [address], [address], [facility] 01/17/2023 17:55:31 Mri, Lumbar Spine, W/o Contrast : [address] [address] Patient Name: FRANSISCO SILVESTRE Patient : 1960 [...] By: Evangelist Lazar MD E VELIZ MD [address] [place] [address], [address], [facility] 11/14/2023 20:28:44 Ct, Lumbar Spine, W/o Contrast : [facility] [address] [place] [address] Patient Name: FRANSISCO SILVESTRE Patient : 1960 Patient Ordering Provider: ADDIE VELIZ EXAM DATE: 10/19/2023 EXAM: CT LUMBAR [...] By: Evangelist Lazar MD E VELIZ MD [address] [place] [address], [address], [facility] 11/14/2023 20:28:43 Problems Name Problem SNOMED Code Status Onset Date Resolution Date Notes Provider Name and Address Organization Details Recorded Time 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 From Automated Load;Provi inna: Angie Smallwood;Stat us: Active Not Available [facility] 6 03:15:55 Gluteal tendiniti s 19169485 Active 2014 From Automated Load;Provi inna: Angie Smallwood;Stat us: Active Not Available [facility] 6 03:15:55 Spontaneo us rupture of flexor tendons 041606189 Active 2014 From Automated Load;Provi inna: Robert Wu;Stat us: Active Not Available [facility] 6 03:15:55 Shoulder joint pain 696172863 Active 2014 From Automated Load;Provi inna: Robert Wu;Stat us: Active Not Available [facility] 6 03:16:01 Partial thickness rotator cuff tear 040183347 Active 2015 From Automated Load;Provi inna: Robert Wu;Stat us: Active Not Available [facility] 6 03:15:55 Bite - wound 682422568 Active 2015 From Automated Load;Provi inna: Robert Wu;Stat us: Active Not Available [facility] 7 06:13:36 Celluliti s of finger 04623236 Active 2015 From Automated Load;Provi inna: Robert Wu;Stat us: Active Not Available [facility] 7 07:07:05 Idiopathi c aseptic necrosis of bone 177480599 Active 2015 From Automated Load;Provi inna: Ministerio Ross;St atus: Active Not Available [facility] 7 08:12:31 Problem Notes None recorded. Procedures Surgical History Date Name Laterality Status Provider Name and Address Organization Details Recorded Time 10/29/19 21 POSTERIOR LUMBAR INTERBODY FUSION, ADDITIONAL INTERSPACE (SURG) completed Maddie Denton [facility] 11/19/2020 13:18:57 04/18/20 17 Post-Op Staple Removal completed ADDY FLORES PA-C [address] [place] [address], [address], [facility] 04/18/2017 14:48:01 04/04/20 17 POSTERIOR LUMBAR INTERBODY FUSION, SINGLE INTERSPACE (SURG) completed Pam Espinoza [facility] 05/10/2017 13:56:43 Imaging Results None recorded. Procedure Notes None recorded. Medical Equipment None Reported. Allergies Allergen ID Allergen Name Allergen Category Reaction Reaction Severity Criticality Documentation Date Start Date Code Code System Note Provider Name and Address Organization Details Recorded Time 225040 Product containin g penicilli n (product) medicatio n Not available Not available Not available 09/15/20162014 03618 8001 SNOMED Comme nt: Creat ed By: Myke blanchard;Darwin augustine Date: 015 1:31: 15 PM; Not Available [facility] 6 07:51:09 Medications Name Sig [...] Details Last Updated DateTime 12/14/2020 175.26 cm [facility] 13:31:24 Date Recorded Body height Body mass index (BMI) Body weight Heart rate Systolic And Diastolic Provider Name and Address Organization Details Last Updated DateTime 12/26/2022 175.26 cm 38 kg/m2 942510.2 4 g 77 /min 116/61 mm[Hg] [facility] 12/26/2022 14:33:08 Date Recorded Body height Body mass index (BMI) Body weight Systolic And Diastolic Provider Name and Address Organization Details Last Updated DateTime 01/23/2023 175.26 cm 38 kg/m2 643882.24 g 122/72 mm[Hg] Caitlin Palmer [facility] 01/23/2023 10:02:09 Date Recorded Body height Body mass index (BMI) Body weight Heart rate Systolic And Diastolic Provider Name and Address Organization Details Last Updated DateTime 03/17/2021 175.26 cm 35.4 kg/m2 126499.1 7 g 85 /min 106/65 mm[Hg] [facility] 03/17/2021 14:30:35 Social History Question Answer Notes LastModified by Organizat ion Details LastModified Time Tobacco Smoking Status Current Every Day Smoker [facility] 12/11/2016 07:46:19 What Was The Date Of [...] ICD10 Code Diagnosis IMO Codes Diagnosis Note [id number] [place] [address] [place] [address] 12/11/2016 07:28:30 12/11/2016 08:44:29 Pain of multiple joints 78763883 M25.50 Chronic joint pains, for over 10 [...] 7.5 mg qid for the Back pains. [id number] ESPINOZA CRUZ MD RHEUMATOL OGY [facility] [address] [place] [address] 12/26/2016 14:41:40 12/26/2016 16:18:29 Undifferentiated inflammatory arthritis 094995791 M19.90 Negative RF and negative anti CCP abs.Modest elevation in ESR, and moderate elevation in CRP.Some erosive change sin the hands.I WANT TO START HIM WITH RELAFEN AT 750 MG , 2 PO QD FOR NOW AND SEE HOW HE DOES. HOLD OFF ON THE STEROIDS.I f he failed to help, will do trial of HCQ. [id number] ADDIE VELIZ MD [facility] [address] [place] [address] 03/06/2017 08:40:50 03/06/2017 09:45:36 Lumbar spondylosis 383316324 M47.170 [id number] ADDY FLORES PA-C [facility] [address] [place] [address] 04/18/2017 14:03:44 04/18/2017 16:04:23 Low back pain 484118832 M54.5 [id number] ADDIE VELIZ MD [facility] [address] [place] [address] 05/10/2017 13:51:16 05/10/2017 14:20:50 Lumbar radiculopathy 610422224 M54.16 [id number] ADDIE VELIZ MD [facility] [address] [place] [address] 07/10/2017 13:13:59 07/10/2017 13:53:41 Lumbar spondylosis 045007389 M47.242 [id number] ADDIE VELIZ MD [facility] [address] [place] [address] 06/17/2019 13:34:04 06/24/2019 11:29:14 Lumbar spondylosis 445100961 M47.022 [id number] ELADIO TANG PA-C [facility] [address] [place] [address] 07/08/2019 09:57:33 07/10/2019 15:42:32 Low back pain 297643710 M54.5 59-year-ol d who is s/p a [...] agrees with the plan as stated above. [id number] ADDIE VELIZ MD [facility] [address] [place] [address] 08/10/2020 08:38:30 08/11/2020 20:49:02 Lumbar spondylosis 163655882 M47.030 [id number] ADDIE VELIZ MD [facility] [address] [place] [address] 09/21/2020 13:31:27 09/23/2020 11:34:29 Lumbar spondylolisthesis 8324180891 77615 M43.16 [id number] ADDIE VELIZ MD NEUROS[facility]G [facility] [address] [place] [address] 11/16/2020 14:59:09 11/19/2020 10:15:00 [id number] ADDIE VELIZ MD SURGERY SCHEDULE [address] [place] [address] 11/18/2020 09:49:55 11/23/2020 13:31:47 [id number] ADDIE VELIZ MD [facility] [address] [place] [address] 12/14/2020 13:16:14 12/15/2020 11:06:46 Lumbar spondylosis 155554049 M47.066 [id number] CIRO HERNANDEZ PA-C [facility] [address] [place] [address] 03/17/2021 13:35:21 03/18/2021 14:12:04 Lumbar spondylosis 628165520 M47.896 [id number] CECELIA WELLS APRN [facility] [address] [place] [address] 12/26/2022 13:54:52 12/28/2022 04:29:04 Lumbar radiculopathy 742402190 M54.16 [id number] ADDIE VELIZ MD [facility] [address] [place] [address] 01/23/2023 09:53:50 01/26/2023 13:00:16 Spinal stenosis of lumbar region 19451017 M48.062 [id number] ADDIE VELIZ MD [facility] [address] [place] [address] 10/09/2023 12:55:37 10/10/2023 05:26:07 Spinal stenosis of lumbar region 40662399 M48.062 Health Concerns Section Related Observation LastModified [...] (MEDICARE REPLACEMENT/A DVANTAGE - PPO) Fransisco Silvestre [id number] Fransisco Silvestre Notes Date Note Type Note [...] severe radicular leg pain. ADDIE VELIZ MD [address] [place] [address], [address], [facility] 12/14/2020 13:52:51 03/17/2021 text/html ROS as noted [...] radiation into his arms. CIRO HERNANDEZ PA-C [address] [place] [address], [address], [facility] 03/17/2021 14:47:34 12/26/2022 text/html Mr. Silvestre returns [...] apnea, and COPD. CECELIA WELLS, DAVID [address] [place], [address], [facility] 12/27/2022 08:35:34 01/23/2023 text/html Mr. Silvestre was [...] for a while. ADDIE VELIZ MD [address] [place], [address], [facility] 01/23/2023 11:20:07 10/09/2023 text/html Status post L5-S1 [...] [address] Samira Garcia urologist at [facility]. ADDIE VELIZ MD [address] [place] [address], [address], [facility] 10/09/2023 13:36:04
--- OUTSIDE RECORDS SUMMARY | 2025-08-17 16:12 | XMS_ITS | Encounter Summary ---
Author Organization [employer] ([place], [place], [place], [place]) Address [address] [place] [address] Care Team Providers Care Broke Beater Machine Operator Name Role Phone Unavailable Primary Care Provider Unavailabl e Encounter Details Date Type Department Care Team (Late st Contact Info) Description 10/29/2020 Transcribed Document [facility] Radiology [address] [place] [address] Vicente Orr MD [address] [address] Social History Tobacco Use Types [...] is a 60 yo male admitted to [facility] per Dr. Green for an [...] 100 mg intravenous injection 1 Infusion, IntraVENous, Y2Horjt Jardiance 25 mg oral tablet 25 mg [...]
--- OUTSIDE RECORDS SUMMARY | 2025-08-17 16:12 | XMS_ITS | Encounter Summary ---
Author Organization [employer] ([place], [place], [place], [place]) Address [address] [place] [address] Care Team Providers Care Account Maintenance Representative Name Role Phone Unavailable Primary Care Provider Unavailbrianna e Encounter Details Date Type Department Care Team (Late st Contact Info) Description 10/31/2020 Transcribed Document [facility] [place] [facility] [place] [address] ProviderFarhan MD [address] [place] [address] Social History Tobacco Use Types [...] - Historical ProviderMD - 10/31/2020 2:00 AM EDITING INTERN Pain Assessment Entered On: 10/31/2020 6:55 EST [...]
--- OUTSIDE RECORDS SUMMARY | 2025-08-17 16:12 | XMS_ITS | Encounter Summary ---
Author Organization [employer] ([place], [place], [place], [place]) Address [address] [place] [address] Care Team Providers Care Foreign Language Professor Name Role Phone Unavailable Primary Care Provider Unavailabl e Encounter Details Date Type Department Care Team (Late st Contact Info) Description 10/29/2020 Transcribed Document [facility] [place] Medicine [facility] [place] [address] ProviderFarhan MD [address] [place] [address] Social History Tobacco Use Types [...] - Historical ProviderMD - 10/29/2020 10:00 PM INTERNET TECHNOLOGY MANAGER Pain Assessment Entered On: 10/30/2020 1:23 EST [...]
--- OUTSIDE RECORDS SUMMARY | 2025-08-17 16:12 | XMS_ITS | Encounter Summary ---
Author Organization [employer] ([place], [place], [place], [place]) Address [address] [place] [address] Care Team Providers Care Air Bag Builder Name Role Phone Unavailable Primary Care Provider Unavailabl e Encounter Details Date Type Department Care Team (Late st Contact Info) Description 10/29/2020 Transcribed Document [facility] [place] Formerly [facility] [place] [address] ProviderFarhan MD [address] [place] [address] Social History Tobacco Use Types [...] - Historical ProviderMD - 10/29/2020 10:34 AM INSIDE SALES DIRECTOR Evaluation, Physical Therapy Entered On: 10/29/2020 15:22 [...] KATINA LIANG, PT - 10/29/2020 15:23 EST [facility] Goals Mobility/Bed Mobility LTG PT Grid Goal [...] KATINA LIANG, PT - 10/29/2020 15:23 EST [place] PT Charges PT Therap. Exercise 15 min : 1 PT Eval Low Complexity : 1 KATINA LIANG, PT - 10/29/2020 15:23 EST Electronically signed by [facility], [facility] Conversion Airplane Flight Attendant Supervisor Vitorner at 02/08/2023 12:22 PM CDT documented in this encounter Plan of Treatment Not on file documented as of this encounter Visit Diagnoses Not on filedocumented in this encounter
--- OUTSIDE RECORDS SUMMARY | 2025-08-17 16:12 | XMS_ITS | Encounter Summary ---
Author Organization [employer] ([place], [place], [place], [place]) Address [address] [place] [address] Care Team Providers Care Warrant Clerk Name Role Phone Unavailable Primary Care Provider Unavailbrianna e Encounter Details Date Type Department Care Team (Late st Contact Info) Description 10/31/2020 Transcribed Document [facility] [place] [facility] [place] [address] ProviderFarhan MD [address] [place] [address] Social History Tobacco Use Types [...] - Historical ProviderMD - 10/31/2020 6:00 AM MANAGER RADIATION Pain Assessment Entered On: 10/31/2020 6:55 EST [...]
--- OUTSIDE RECORDS SUMMARY | 2025-08-17 16:12 | XMS_ITS | Encounter Summary ---
Author Organization [employer] ([place], [place], [place], [place]) Address [address] [place] [address] Care Team Providers Care Mental Tester Name Role Phone Unavailable Primary Care Provider Unavailabl e Encounter Details Date Type Department Care Team (Late st Contact Info) Description 10/30/2020 Transcribed Document [facility] [place] [address] [place] [address] ProviderFarhan MD [address] [place], [place] [id number] Social History Tobacco Use Types Packs/Day Years [...] - Historical ProviderMD - 10/30/2020 2:00 AM TUMBLING AND ROLLING SUPERVISOR Float Nurse Details Entered On: 10/30/2020 1:24 EST Performed [...] 10/30/2020 1:24 EST Electronically signed by Kailey [facility] Conversion Printing Plate Setter Cerner at 02/08/2023 12:39 PM CDT documented in this encounter Plan of Treatment Not on file documented as of this encounter Visit Diagnoses Not on filedocumented in this encounter
--- OUTSIDE RECORDS SUMMARY | 2025-08-17 16:12 | XMS_ITS | Encounter Summary ---
Author Organization [employer] ([place], [place], [place], [place]) Address [address] [place] [address] Care Team Providers Care Barrel Raiser Helper Name Role Phone Unavailable Primary Care Provider Unavailabl e Encounter Details Date Type Department Care Team (Late st Contact Info) Description 10/31/2020 Transcribed Document [facility] [place] [address] [place] [address] ProviderFarhan MD [address] [place] [address] Social History Tobacco Use Types [...] - Farhan ProviderMD - 10/31/2020 2:40 PM NOTCHED BLADE LOADER [facility] [place] [address] FRANSISCO CRAVEN :1960 Visit Time:10/29/2020 Your [...] When Within 2 weeks Nirali hylton Where: [address] [place] [address] [place] [id number] ([address]) Medications What How Much When Instructions [...] these instructions at home: Medicines ??? Take wsto-oql-kmgtdqp and prescription medicines only as told by [...] cannot use soap and water, use hand factory expert. ? Change your bandage as told by [...] your pee (urine) pale yellow. ? Take ilyr-yfc-jzsmkjv or prescription medicines. ? Eat foods that [...] 02/01/2012 Document Revised: 01/29/2020 Document Reviewed: 01/22/2018 [employer] Patient Education ?? 2020 Birthday Slam. acetaminophen and hydrocodone (a SEET a MIN oh fen and michael droe KOE done) Hycet, Lorcet, [place], Verdrocet, Vicodin, Xodol, Zamicet What is the [...] may report side effects to FDA at 6-924-TGQ-3726. What other drugs will affect acetaminophen and [...] affect acetaminophen and hydrocodone, including prescription and egtg-yuj-syxdlls medicines, vitamins, and herbal products. Not all [...] to ensure that the information provided by [employer]. ('[employer]') is accurate, up-to-date, and complete, but no guarantee is made to that effect. Drug information contained herein may be time sensitive. [employer] information has been compiled for use by healthcare practitioners and consumers in the [place] and therefore [employer] does not warrant that uses outside of the [place] are appropriate, unless specifically indicated otherwise. [employer] drug information does not endorse drugs, diagnose patients or recommend therapy. [employer] drug information is an informational resource designed [...] effective or appropriate for any given patient. [facility] does not assume any responsibility for any aspect of healthcare administered with the aid of information [facility] provides. The information contained herein is not intended to cover all possible uses, directions, precautions, warnings, drug interactions, allergic reactions, or adverse effects. If you have questions about the drugs you are taking, check with your doctor, nurse or pharmacist. Copyright 2350-4452 [facility] [employer]. Version: 16.01. Revision Date: 11/12/2019. Emergency Awareness [...] Assistance with quitting is available by contacting 3-568-BYRQ-NOW. This is a free resource providing counseling, [...] range between ( 0.0 and 7.0 ) Candler #: 1.07 K/uL -- Normal range between ( 0.16 and 1.00 ) Eos #: 0.03 x10(3)/uL -- Normal range between ( 0.00 and 0.80 ) Candler %: 7.3 % -- Normal range between [...] ) Urine Bilirubin Dipstick: Negative Urine Specific [place]orest: *1.028 -- Normal range between ( 1.005 [...] was given the opportunity to ask questions. Patient/Computer Systems Technician Name: Patient/Computer Systems Technician Signature: Relationship to Patient: Clinician/Hospital Computer Systems Technician Signature: Date: documented in this encounter Plan of Treatment Not on file documented as of this encounter Visit Diagnoses Not on filedocumented in this encounter
--- OUTSIDE RECORDS SUMMARY | 2025-08-17 16:12 | XMS_ITS | Encounter Summary ---
Author Organization [employer] ([place], [place], [place], [place]) Address [address] [place] [address] Care Team Providers Care Pet Caretaker Name Role Phone Unavailable Primary Care Provider Unavailabl e Encounter Details Date Type Department Care Team (Late st Contact Info) Description 10/30/2020 Transcribed Document [facility] [place] [address] [place] [address] ProviderFarhan MD [address] [place] [address] Social History Tobacco Use Types [...] - Farhan ProviderMD - 10/30/2020 10:00 AM POTATO CHIP COOKER MACHINE Pain Assessment Entered On: 10/30/2020 20:02 EST [...]
--- OUTSIDE RECORDS SUMMARY | 2025-08-17 16:12 | XMS_ITS | Encounter Summary ---
Author Organization [employer] ([place], [place], [place], [place]) Address [address] [place] [address] Care Team Providers Care Coding Compliance Manager Name Role Phone Unavailable Primary Care Provider Unavailabl e Encounter Details Date Type Department Care Team (Late st Contact Info) Description 10/31/2020 Transcribed Document [facility] [place] [address] [place] [address] ProviderFarhan MD [address] [place], [place] [id number] Social History Tobacco Use Types Packs/Day Years [...] - Historical ProviderMD - 10/31/2020 2:36 PM GLAZIER ARTIST Stroke/Warfarin Instructions Entered On: 10/31/2020 14:36 EST Performed On: 10/31/2020 14:36 EST by DOMINIQUE PHILLIPS LPN Stroke/Warfarin Instructions Stroke/TIA Discharge Ins : N/A Warfarin Discharge Ins : N/A DOMINIQUE PHILLIPS LPN - 10/31/2020 14:36 EST Electronically signed by Louis Bonner Conversion Mold Cleaning And Storage Supervisor Mario at 02/08/2023 12:12 PM CDT documented in this encounter Plan of Treatment Not on file documented as of this encounter Visit Diagnoses Not on filedocumented in this encounter
--- OUTSIDE RECORDS SUMMARY | 2025-08-17 16:12 | XMS_ITS | Encounter Summary ---
Author Organization [employer] ([place], [place], [place], [place]) Address [address] [place] [address] Care Team Providers Care Issuing Operator Name Role Phone Unavailable Primary Care Provider Unavailabl e Encounter Details Date Type Department Care Team (Late st Contact Info) Description 10/29/2020 Transcribed Document [facility] [address] [facility] [address] [place] [address] Addie Veliz Jr., MD [address] [place] [address] [address] [place] [address] Social History Tobacco Use Types [...]
--- OUTSIDE RECORDS SUMMARY | 2025-08-17 16:12 | XMS_ITS | Encounter Summary ---
Author Organization [employer] ([place], [place], [place], [place]) Address [address] [place] [address] Care Team Providers Care Coal Passer Name Role Phone Unavailable Primary Care Provider Unavailabl e Encounter Details Date Type Department Care Team (Late st Contact Info) Description 10/30/2020 Transcribed Document [facility] [place] [address] [place] [address] ProviderFarhan MD [address] [place] [address] Social History Tobacco Use Types [...] - Historical ProviderMD - 10/30/2020 5:00 AM HAT AND CAP SEWER Chart Check - Review Order Profile Entered On: 10/30/2020 5:11 EST Performed On: 10/30/2020 5:00 EST by Sam Anton, RN Chart Check Powerplans Initiated/Discontinued as Appropriate : Yes All Active Orders Reviewed : Yes Sam Anton RN - 10/30/2020 5:11 EST Electronically signed by Kailey [facility] Conversion Licensing Coordinator Mario at 02/08/2023 12:44 PM CDT documented in this encounter Plan of Treatment Not on file documented as of this encounter Visit Diagnoses Not on filedocumented in this encounter
--- OUTSIDE RECORDS SUMMARY | 2025-08-17 16:12 | XMS_ITS | Encounter Summary ---
Author Organization [employer] ([place], [place], [place], [place]) Address [address] [place] [address] Care Team Providers Care Composite Bond Worker Name Role Phone Unavailable Primary Care Provider Unavailabl e Encounter Details Date Type Department Care Team (Late st Contact Info) Description 10/31/2020 Transcribed Document [facility] [place] [facility] [place] [address] ProviderFarhan MD [address] [place], [place] [id number] Social History Tobacco Use Types Packs/Day Years [...] - Historical ProviderMD - 10/31/2020 3:22 PM FIREBRICK LAYER Discharge Summary, PT Entered On: 10/31/2020 15:23 [...] Chase PHYSICAL THERAPIST - 10/31/2020 15:22 EST [facility] Goals Mobility/Bed Mobility LTG PT Grid Goal [...]
--- OUTSIDE RECORDS SUMMARY | 2025-08-17 16:12 | XMS_ITS | Encounter Summary ---
Author Organization [employer] ([place], [place], [place], [place]) Address [address] [place] [address] Care Team Providers Care Radio Communication Coordinator Name Role Phone Unavailable Primary Care Provider Unavailabl e Encounter Details Date Type Department Care Team (Late st Contact Info) Description 10/30/2020 Transcribed Document [facility] [place] [facility] [place] [address] ProviderFarhan MD [address] [place] [address] Social History Tobacco Use [...] - Farhan ProviderMD - 10/30/2020 2:00 PM MACHINE CHOCOLATE MOLDER Pain Assessment Entered On: 10/30/2020 20:02 EST [...]
--- OUTSIDE RECORDS SUMMARY | 2025-08-17 16:12 | XMS_ITS | Encounter Summary ---
Author Organization [employer] ([place], [place], [place], [place]) Address [address] [place] [address] Care Team Providers Care Harvest Crew Supervisor Name Role Phone Unavailable Primary Care Provider Unavailabl e Encounter Details Date Type Department Care Team (Late st Contact Info) Description 10/30/2020 Transcribed Document [facility] [address] [facility] [address] [place] [address] [place] [address] [place] [address] [address] [place] [address] Social History Tobacco Use Types [...] JESUS drain output for 20 and 24 [id number] overnight No major complaints. He has postop [...] tomorrow and go home tomorrow. He requests Mammoth instead of Percocet when he goes home. I put a Mammoth prescription on his chart. I talked to his . They're both happy with the plan. documented in this encounter Plan of Treatment Not on file documented as of this encounter Visit Diagnoses Not on filedocumented in this encounter
--- OUTSIDE RECORDS SUMMARY | 2025-08-17 16:12 | XMS_ITS | Encounter Summary ---
Author Organization [employer] ([place], [place], [place], [place]) Address [address] [place] [address] Care Team Providers Care Marina Porter Name Role Phone Unavailable Primary Care Provider Unavailabl e Encounter Details Date Type Department Care Team (Late st Contact Info) Description 10/30/2020 Transcribed Document [facility] [facility] [place] [address] ProviderFarhan MD [address] [place] [address] Social History Tobacco Use Types [...] - Historical ProviderMD - 10/30/2020 10:50 AM LINER WORKER UM Authorization Entered On: 10/30/2020 10:51 EST Performed On: 10/30/2020 10:50 EST by Ca Amaya Rn-Utilization Review Primary Insurance Authorization Authorization and Policy Numbers : Insurance 1 Health Plan: [employer] CHO[employer] PPO Policy Number: [id number] Authorization Number: Insurance Primary Name : [employer] Choice [id number] Authorization Status-Primary : Pending Auth/Referral Contact Name-Primary : Alfredo Casas Reference Number-Primary : [id number] Authorization Number-Primary : Pending Authorized Service Begin [...] or availity as of yet (DERICK SHIPMAN, Surgical Orderly 10/28/2020 12:39) Ca Amaya, Rn-Utilization Review - 10/30/2020 10:50 EST Electronically signed by Kailey, [facility] Conversion Ceo And Founder Cerner at 02/08/2023 12:12 PM CDT documented in this encounter Plan of Treatment Not on file documented as of this encounter Visit Diagnoses Not on filedocumented in this encounter
--- OUTSIDE RECORDS SUMMARY | 2025-08-17 16:12 | XMS_ITS | Encounter Summary ---
Author Organization [employer] ([place], [place], [place], [place]) Address [address] [place] [address] Care Team Providers Care Supervisor Rolling Room Name Role Phone Unavailable Primary Care Provider Unavailabl e Encounter Details Date Type Department Care Team (Late st Contact Info) Description 10/30/2020 Transcribed Document [facility] Radiology [address] [place] [address] Mary Beth Orr MD [address] [address] Social History Tobacco Use Types [...] 100 mg intravenous injection 1 Infusion, IntraVENous, [id number] Jardiance 25 mg oral tablet 25 mg [...]
--- OUTSIDE RECORDS SUMMARY | 2025-08-17 16:12 | XMS_ITS | Encounter Summary ---
Author Organization [employer] ([place], [place], [place], [place]) Address [address] [place] [address] Care Team Providers Care Video Producer Name Role Phone Unavailable Primary Care Provider Unavailabl e Encounter Details Date Type Department Care Team (Late st Contact Info) Description 10/31/2020 Transcribed Document [facility] [place] [facility] [address] ProviderFarhan MD [address] [place] [address] Social History Tobacco Use Types [...] - Historical ProviderMD - 10/31/2020 2:36 PM PRODUCTION SUPPORT SPECIALIST Nursing Discharge Summary Entered On: 10/31/2020 14:37 [...] - 10/31/2020 14:36 EST Electronically signed by [facility], [facility] Conversion Meat Blender Cerner at 02/08/2023 12:18 PM CDT documented in this encounter Plan of Treatment Not on file documented as of this encounter Visit Diagnoses Not on filedocumented in this encounter
--- OUTSIDE RECORDS SUMMARY | 2025-08-17 16:12 | XMS_ITS | Encounter Summary ---
Author Organization [employer] ([place], [place], [place], [place]) Address [address] [place] [address] Care Team Providers Care Meter Tester Primary Name Role Phone Unavailable Primary Care Provider Unavailabl e Encounter Details Date Type Department Care Team (Late st Contact Info) Description 10/29/2020 Transcribed Document [facility] [place] [facility] [place] [address] ProviderFarhan MD [address] [place] [address] Social History Tobacco Use Types [...] - Historical ProviderMD - 10/29/2020 10:34 AM QA MANAGER Evaluation, Occupational Therapy Entered On: 10/29/2020 15:00 [...] CONNOR WALTON OTR/Desiree - 10/29/2020 14:54 EST Medical Logistics Specialist Goals, OT Bathing LTG Grid Goal #1 [...] 10/29/2020 14:54 EST Electronically signed by Interface, [facility] Conversion Cosmetologist Cerner at 02/08/2023 12:33 PM CDT documented in this encounter Plan of Treatment Not on file documented as of this encounter Visit Diagnoses Not on filedocumented in this encounter
--- OUTSIDE RECORDS SUMMARY | 2025-08-17 16:12 | XMS_ITS | Encounter Summary ---
Author Organization [employer] ([place], [place], [place], [place]) Address [address] [place] [address] Care Team Providers Care Motion Picture Set Worker Name Role Phone Unavailable Primary Care Provider Unavailabl e Encounter Details Date Type Department Care Team (Late st Contact Info) Description 10/29/2020 Transcribed Document [facility] [place] [address] [place] [address] ProviderFarhan MD [address] [place], [place] [phone] Social History Tobacco Use Types Packs/Day Years [...] - Historical ProviderMD - 10/29/2020 12:20 PM DIRECTOR OF RESEARCH Meds to Bed Enrollment Entered On: 10/29/2020 12:21 EST Performed On: 10/29/2020 12:20 EST by Matty Hoovre, DIRECTOR OF ONLINE MERCHANDISING LEAD Meds to Bed Enrollment Patient Enrollment Decision: : Yes/enroll in meds to bed program Matty Hoover DIRECTOR OF ONLINE MERCHANDISING LEAD - 10/29/2020 12:21 EST documented in this encounter Plan of Treatment Not on file documented as of this encounter Visit Diagnoses Not on filedocumented in this encounter
--- OUTSIDE RECORDS SUMMARY | 2025-08-17 16:12 | XMS_ITS | Encounter Summary ---
Author Organization [employer] ([place], [place], [place], [place]) Address [address] [place] [address] Care Team Providers Care Center Aisle Cashier Name Role Phone Unavailable Primary Care Provider Unavailabl e Encounter Details Date Type Department Care Team (Late st Contact Info) Description 10/30/2020 Transcribed Document [facility] [place] [address] [place] [address] ProviderFarhan MD [address] [place] [address] Social History Tobacco Use Types [...] - Historical ProviderMD - 10/30/2020 10:50 AM CONVENTION MANAGER UM Authorization Entered On: 10/30/2020 10:50 EST Performed On: 10/30/2020 10:50 EST by Ca Amaya Rn-Utilization Review Primary Insurance Authorization Authorization and Policy Numbers : Insurance 1 Health Plan: [employer] CHO[employer] PPO Policy Number: [id number] Authorization Number: Insurance Primary Name : [employer] [id number] Authorization Status-Primary : Pending Auth/Referral Contact Name-Primary : Alfredo Casas Reference Number-Primary : [id number] Authorization Number-Primary : Pending, No Notes in [...] or availity as of yet (DERICK SHIPMAN, Fitter / Welder 10/28/2020 12:39) Ca Amaya, Rn-Utilization Review - 10/30/2020 10:50 EST Electronically signed by Kailey [facility] Conversion Tariff Supervisor Cerner at 02/08/2023 12:35 PM CDT documented in this encounter Plan of Treatment Not on file documented as of this encounter Visit Diagnoses Not on filedocumented in this encounter
[2025-08-17 16:16] LABS: Hematocrit 40.7 % (42.0-52.0); Hemoglobin 13.6 g/dL (14.1-18.0); Immature Granulocytes % 0.6 %; Mean Corpuscular HGB Conc 33.4 g/dL (31.8-35.4); Mean Corpuscular Hemoglobin 31.1 pg (27.0-31.2); Mean Corpuscular Volume 93.1 fl (80-94); Nucleated Red Blood Cells % 0 %; Platelet Count 208 K/mm3 (142-424); Red Blood Count 4.37 M/mm3 (4.60-6.20); Red Cell Distribution Width-SD 46.7 fL; White Blood Count 9.9 K/mm3 (4.8-10.8)
[2025-08-17 17:42] LABS: Albumin Level 3.4 g/dl (3.5-5.0); Chloride 102 mmol/L (98-107); Sodium 137 mmol/L (136-145)
[2025-08-17 17:43] LABS: Potassium 4.1 mmoL/L (3.5-5.1)
[2025-08-17 17:45] LABS: Alanine Aminotransferase 14 U/L (12-78); Alkaline Phosphatase 100 U/L (38-126); Anion Gap 10.1 mEq/L (5-15); Aspartate Amino Transferase 22 U/L (17-59); Bilirubin,Direct 0.0 mg/dl (0.0-0.4); Bilirubin,Indirect 0.5 mg/dL (0.0-0.9); Bilirubin,Total 0.5 mg/dl (0.2-1.3); Bilirubin,Unconjugated 0.5 mg/dL (0.0-1.1); Blood Urea Nitrogen 15 mg/dl (9-20); Calcium 8.9 mg/dl (8.4-10.2); Carbon Dioxide 29 mmol/L (22.0-30.0); Cholesterol 173 mg/dl (140-200); Creatinine,Serum 1.00 mg/dl (0.66-1.25); Estimated Glomerular Filt Rate 75 ml/min (>60); GFR (African American) 91 ML/MIN (>60); Glucose 95 mg/dl (74-100); Total Protein,Serum 7.6 g/dl (6.3-8.2); Triglycerides 130 mg/dl (30-150)
[2025-08-17 17:46] LABS: HDL Cholesterol 42 mg/dl (40-60); Magnesium 1.2 mg/dl (1.6-2.3)
[2025-08-17 18:00] LABS: Free T4 (Free Thyroxine) 1.51 ng/dl (0.78-2.19)
[2025-08-17 18:18] LABS: Thyroid Stimulating Hormone 2.28 uIU/mL (0.465-4.68)
== END 2025-08-17 23:59 | disposition home or self-care (01) ==
LOC: LAB 15:44
PROVIDERS: PCP Nurse Practitioner Family; Visit Provider Nurse Practitioner
DX: I25.10 Atherosclerotic heart disease of native coronary artery without angina pectoris (principal); I10 Essential (primary) hypertension; E78.5 Hyperlipidemia, unspecified
CPT/HCPCS: 36415; 80048; 80061; 80076; 83735; 84439; 84443; 85025

== ENCOUNTER 2025-08-24 13:54 | Outpatient (CLI) | payer MEDICARE, SELFPAY ==
--- OUTSIDE RECORDS SUMMARY | 2024-04-17 09:00 | XMS_ITS ---
Author Organization [facility] Address [address] [place] [address] Care Team Providers Care Supervisor Ovens Name Role Phone Khadijah Hanna APRN, Mem Primary Care Provider Unavailable Roger Keen II Unavailable [place] [employer] Worker David DUKE Unavailable Unavailable Allergies Allergen (clinical drug ingredient) Drug/Non Drug Allergy documented on EMR Reaction Allergy Type Onset Date Status penicillin dizziness Drug Allergy Active etanercept stomach upset Drug Allergy Ac tive REASON FOR VISIT Low back pain, Leg pain Medications Medication SIG (Take, Route, Frequency, Duration) Notes Start Date End Date Status Acetaminophen-Hydroc odone Bitartrate 325 mg-7.5 mg 1 tab(s) orally three to four times a day; Duration: 28 days NOVEMBER 2023 RX, DO NOT FILL SOONER THAN 28 DAYS, (OK TO FILL EARLY, ONLY IF CLOSED) Active atorvastatin 10 mg 1 tab(s) orally once a day; Duration: 30 day(s) 02/11/2024 Active venlafaxine 150 mg 1 cap(s) orally once a day; Duration: 30 day(s) 03/16/2022 Active Mounjaro 2.5 mg/0.5 mL as directed subcutaneously once a week 02/11/2024 Active Lyrica 300 mg 1 cap(s) orally 2 times a day 02/11/2024 Active Acetaminophen-Hydroc odone Bitartrate 325 mg-7.5 mg 1 tab(s) orally three to four times a day; Duration: 28 days OCTOBER 2023 RX, DO NOT FILL SOONER THAN 28 DAYS, (OK TO FILL EARLY, ONLY IF CLOSED) Active famotidine 20 mg 1 tab(s) orally 2 times a day 03/16/2022 Active tamsulosin 0.4 mg 1 cap(s) orally once a day; Duration: 30 day(s) 03/16/2022 Active lisinopril 40 mg 1 tab(s) orally once a day; Duration: 30 day(s) 03/16/2022 Active Encounters Encounter Location Date Provider Diagnosis [facility] [address] [place] [address] 04/17/2024 Roger Keen Other correction (current) drug therapy Z79.899 ; Unspecified osteoarthritis, unspecified site M19.90 ; Rheumatoid arthritis, unspecified M06.9 ; Spondylosis without myelopathy or radiculopathy, lumbar region M47.816 ; Radiculopathy, lumbar region M54.16 ; Sacroiliitis, not elsewhere classified M46.1 and Trochanteric bursitis, unspecified hip M70.60 Assessments Encounter Date Diagnosis (ICD Code) Assessment Notes Treatment Notes Treatment Clinical Notes Section Notes 04/17/2024 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 Refill [place] 7.5/325mg TID-QID 2. Continue Lyrica 225mg BID with PCP 3. S/p #1 FILEMON SIJI with elevated BG 4. Consider SLBB in the future, declines 5. Follow up 2 months 6. Continue to follow-up with Oncology 02/25/24 oNe presents for follow up. He has been diagnosed with rheumatoid arthritis and has been on many immunomodulator s, currently on an infusion every 4 weeks. In addition he had major back surgeries at the [facility] with Dr. Waylon Green, performed in 2020 which was a lumbar fusion (L3-S1). He is going to try and pursue further surgery once his cancer stabilizes. Here today for office visit and medication refills. Patient with a history of bladder cancer that is following up with [facility] at . Denies any significant changes in intensity in pain. Denies any changes or health concerns. Taking [place] 7.5/325 mg 3-4 times per day with relief. Denies side effects. Continues Lyrica with PCP. Declines injection therapy. Vero and UDS reviewed in room. Follow up in 2 months. 04/17/2024 Unspecified osteoarthritis, unspecified site (ICD-10 - M19.90) 02/25/24 Noe presents for follow up. He has been diagnosed with rheumatoid arthritis and has been on many immunomodulator s, currently on an infusion every 4 weeks. In addition he had major back surgeries at the [facility] with Dr. Waylon Green, performed in 2020 which was a lumbar fusion (L3-S1). He is going to try and pursue further surgery once his cancer stabilizes. Here today for office visit and medication refills. Patient with a history of bladder cancer that is following up with [facility] at . Denies any significant changes in intensity in pain. Denies any changes or health concerns. Taking [place] 7.5/325 mg 3-4 times per day with relief. Denies side effects. Continues Lyrica with PCP. Declines injection therapy. Vero and UDS reviewed in room. Follow up in 2 months. 04/17/2024 Rheumatoid arthritis, unspecified (ICD-10 - M06.9) 02/25/24 Noe presents for follow up. He has been diagnosed with rheumatoid arthritis and has been on many immunomodulator s, currently on an infusion every 4 weeks. In addition he had major back surgeries at the [facility] with Dr. Waylon Green, performed in 2020 which was a lumbar fusion (L3-S1). He is going to try and pursue further surgery once his cancer stabilizes. Here today for office visit and medication refills. Patient with a history of bladder cancer that is following up with [facility] at . Denies any significant changes in intensity in pain. Denies any changes or health concerns. Taking [place] 7.5/325 mg 3-4 times per day with relief. Denies side effects. Continues Lyrica with PCP. Declines injection therapy. Vero and UDS reviewed in room. Follow up in 2 months. 04/17/2024 Spondylosis without myelopathy or radiculopathy, lumbar region (ICD-10 - M47.816) 02/25/24 Noe presents for follow up. He has been diagnosed with rheumatoid arthritis and has been on many immunomodulator s, currently on an infusion every 4 weeks. In addition he had major back surgeries at the [facility] with Dr. Waylon Green, performed in 2020 which was a lumbar fusion (L3-S1). He is going to try and pursue further surgery once his cancer stabilizes. Here today for office visit and medication refills. Patient with a history of bladder cancer that is following up with [facility] at . Denies any significant changes in intensity in pain. Denies any changes or health concerns. Taking [place] 7.5/325 mg 3-4 times per day with relief. Denies side effects. Continues Lyrica with PCP. Declines injection therapy. Vero and UDS reviewed in room. Follow up in 2 months. 04/17/2024 Radiculopathy, lumbar region (ICD-10 - M54.16) 02/25/24 Noe presents for follow up. He has been diagnosed with rheumatoid arthritis and has been on many immunomodulator s, currently on an infusion every 4 weeks. In addition he had major back surgeries at the [facility] with Dr. Waylon Green, performed in 2020 which was a lumbar fusion (L3-S1). He is going to try and pursue further surgery once his cancer stabilizes. Here today for office visit and medication refills. Patient with a history of bladder cancer that is following up with [facility] at . Denies any significant changes in intensity in pain. Denies any changes or health concerns. Taking [place] 7.5/325 mg 3-4 times per day with relief. Denies side effects. Continues Lyrica with PCP. Declines injection therapy. Vero and UDS reviewed in room. Follow up in 2 months. 04/17/2024 Sacroiliitis, not elsewhere classified (ICD-10 - M46.1) 02/25/24 Noe presents for follow up. He has been diagnosed with rheumatoid arthritis and has been on many immunomodulator s, currently on an infusion every 4 weeks. In addition he had major back surgeries at the [facility] with Dr. Waylon Green, performed in 2020 which was a lumbar fusion (L3-S1). He is going to try and pursue further surgery once his cancer stabilizes. Here today for office visit and medication refills. Patient with a history of bladder cancer that is following up with [facility] at . Denies any significant changes in intensity in pain. Denies any changes or health concerns. Taking [place] 7.5/325 mg 3-4 times per day with relief. Denies side effects. Continues Lyrica with PCP. Declines injection therapy. Vero and UDS reviewed in room. Follow up in 2 months. 04/17/2024 Trochanteric bursitis, unspecified hip (ICD-10 - M70.60) 02/25/24 Noe presents for follow up. He has been diagnosed with rheumatoid arthritis and has been on many immunomodulator s, currently on an infusion every 4 weeks. In addition he had major back surgeries at the [facility] with Dr. Waylon Green, performed in 2020 which was a lumbar fusion (L3-S1). He is going to try and pursue further surgery once his cancer stabilizes. Here today for office visit and medication refills. Patient with a history of bladder cancer that is following up with [facility] at . Denies any significant changes in intensity in pain. Denies any changes or health concerns. Taking [place] 7.5/325 mg 3-4 times per day with relief. Denies side effects. Continues Lyrica with PCP. Declines injection therapy. Vero and ROSEMARIE reviewed in room. Follow up in 2 months. 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 Refill [place] 7.5/325mg TID-QID 2. Continue Lyrica 225mg BID with PCP 3. S/p #1 FILEMON SIJI with elevated BG 4. Consider SLBB in the future, declines 5. Follow up 2 months 6. Continue to follow-up with Oncology Pending Test Test Name Order Date Urine Test ANALYZER 04/17/2024 Next Appt Details Follow Up: 2 Months, Reason: Procedure Notes * Category Sub-Category Detail Notes PROVIDER ENCOUNTER AND OVERSIGHT Consult Performed By: Vaughn(AUBREY-Lauren VERDUZCO 02/24 8:55:25 AM > collaborated treatment plan with Roger weiss M.D., supervising physician who was present in office during consultation Progress Notes * Noe SILVESTREDOB:1960 ( 65 yo M)Acc No.[id number]:04/17/2024 FollowUP Patient: Noe DIAZ Provider: Amrik Keen II, M.D. :1960 A ge:64 Y S ex:Male Date:04/17/2024 Address:[address] [place], [place] [id number] Pcp:Khadijah dixon Mem Subjective: * Chief Complaints: * 1 . Low back pain. 2. Leg pain. * HPI: T ODAYS PAIN EVALUATION: 64 year old male presents with c/o MEDICATION FOLLOW UP: T he patient is currently prescribed [place] 7.5/325 mg TID and Lyrica 225 mg BID (PCP)which provides 60% relief of pain symptoms for 3 hours. The last dose was taken 0 02/25/2024 . Denies side effects. CURRENT PAIN SYMPTOMS: L ocation of Worst Pain: L ow Back, Leg(s), P ain Frequency: c onstant, always, P ain Description: a phyllis, sharp,?Average Pain Score VAS: 7 , P ain Exacerbation: alot of walking,standing, P ain Alleviation: Sitting down , A DL/Quality of Life Interference: Everything. P AIN MANAGEMENT TREATMENT HISTORY: IMAGING HISTORY: 0 05/10/2017 XR LUMBAR:Uncomplicated appearing L5-S1 fusion 0 06/17/2019 XR LUMBAR:Uncomplicated appearing L5-S1 fusion. Very subtle malaligment L3-4 No instability 0 07/13/2020 MRI LUMBAR:Interval surgical flaxation posteriorly at L5-S1. The surgical hardware cannot be assessed by MRI technique apparent mild scoliosis of the thoracolumbar spine,convex to the right ,Might be postional in nature.The sagittal images show some loss of the lumbar lordosis.Interval development of mild anterior listhesis of L3 on L4, Veetebral body heights are ormal . Small multilevel Schmorls nodes are agin noted,Disc desiccation at L4-5 amd L5 -S1 again noted, Disc height loss mild in and L3-4 and L1-2 and L3-4 and moderate to severe at L4-5 progressed, Moderate degenerative bone marrow signal change at L4-5 , Several peripelvic cysts of both the partially visualized [id number]/22/2020 XR LUMBAR:Grade 1 anterior listhesis L3-4 , No instability unusual apperance of the L4-5 dsc narrowed anteriorly and one posteriorly. Previous L5-S1 fusion with no definate complication 1 11/23/2019 CT LUMBAR:The patient status post PLIF at L5-S1, There is no evidence of loosing of the hardware. There is severe bilateral neural foraminal stenosis from L3-4 through L5-S1. There is severe central canal stenosis at L3-L4, mild to moderate central canal narrowing at L4-L5 and mild central canal narrowing at L2- L3 0 12/14/2020 XR LUMBAR:Spinal fusion is noted at L3-S1 level with pedicular screws and connecting rods , Surgical hardware is satisfactory places . No evidence of loosing or infection is seen . Mild degenerativechanges are seen at other levels 0 02/09/2021 XR LUMBAR:Spinal fusion is noted at L3-L5 level with pedicular screws and connecting rods. Surgical hardware is satisfactory places , No evidnce of loosing or infection is seen.Other levels are normal 0 03/17/2021 XR LUMBAR:Spinal fusion is noted at L3-S1 level with pedicular screws and connecting rids at L3-L5, Surgical hardware is satisfactorily placed. No evidence of loosening or infection is seen , Other levels are normal . P REVIOUS INJECTION\PROCEDURE HISTORY:? 0 01/12/2022#1 SIJI FILEMON 80% relief for 1 hour . P HYSICAL/AQUA THERAPY/DME/OTHER HISTORY: 2 022 Physical Therapy program completed- Helpful, completed at [facility] physical therapy . P ERTINENT SURGICAL EVALUATIONS/SPECIALIST CONSULTS P rior Back surgery: Lumbar fusion L4/5 Eval by Surgeon: Dr. Green . P REVIOUS PAIN CLINIC CARE: Amrik mccann . Felecia PRAKASH OF INITIAL EVALUATION: 0 12/26/2021New patient consults referred by Dr. Telles for chronic pain. onset unknown without incident He has been diagnosed with rheumatoid arthritis and has been on many immunomodulators currently on an infusion. He has been diagnosed with RA for many years. In addition he has had major back surgeries at the [facility] with Dr. Waylon Green the last one was performed a year ago which was a lumbar fusion. He has significant pain in his lower back and neck but also diffuse pain throughout his joints. His most severe pain is in his low back and hips. He denies any urinary fecal incontinence or saddle anesthesia. He does have COPD and is a 2 pack-a-day smoker. He also has AMALIA and uses a machine at bedtime. He is currently taking tramadol 4 times a day with minimal relief. On examination he walks with a severe antalgic gait pitched forward. There is a large well-healed midline surgical scar. There is significant pain with back extension and lateral rotation. SI joint examination bilaterally was positive for provocative tests that is consistent with bilateral sacroiliitis. In addition there is significant tenderness over the bilateral trochanteric bursa. Neck examination is consistent with cervical spondylosis. We are going to request all images from [facility] to review. I am going to schedule him for a #1 bilateral SI joint injection. If he gets any significant relief even short duration, we may consider lateral branch blocks of the SI joint at S1-3 and RFA to minimize steroid requirements for long-term relief. I will start him on [place] 7.5 mg 3-4 times per day as needed for his current pain symptoms. We will consider trochanteric bursa injections as well as lumbar facet work-up in the future. He does take high-dose Lyrica for his diabetic peripheral neuropathy and if this becomes ineffective, we may consider HF 10 therapy with dorsal column stimulation. Vero was reviewed and appropriate. Opioid risk assessment is high due to underlying COPD and obstructive sleep apnea . C OMPLIANCE: RISK ASSESSMENT AND STRATIFICATION: R ISK GROUP: HIGH RISK Concominant use of the following medications: o pioid, Membrane stabilizer..... Lung disorder . U RINE DRUG TESTIN 01/31/2023 Screen Expected 0 03/27/2023 Screen Expected Definitive Expected 0 05/21/2023 Screen Unexpected (+BZO) Definitive Unexpected (+BZO) 0 07/16/2023 Screen Expected 1 11/10/2022 Screen Expected 0 11/02/2023 Screen Expected Definitive Expected 0 01/02/2024 Screen Expected 0 02/25/2024 Screen Expected . M ONITORING: M orphine Equivalent (MME):28 K ASPER reviewed today and appropriate . T ESTING/RISK ASSESSMENTS O RT Score/Result: 0. * ROS: G ENERAL: Fever D enies. H EENT: Sore throat D enies. C ARDIOVASCULAR: Positive for d enies cardiovascular symptoms. ? R ESPIRATORY: Positive for s hortness of breath. G ASTROINTESTINAL: Positive for h eartburn. G ENITOURINARY: Positive for d enies genitourinary issues. M USCULOSKELETAL: Positive for l ow back pain, joint pain. swelling. stiffness. N EUROLOGICAL: Positive for d enies neurological issues. P SYCHIATRIC: Positive for d enies psychological issues. E NDOCRINE: Positive for A bnormal blood sugars. * Medical History: R heumatoid arthritis diagnosed in managed by unknown, Osteoarthritis diagnosed in , managed by unknown, Carpal tunnel diagnosed in managed by unknown, Diabetes diagnosed in managed by unknown, GERD diagnosed in managed by unknown, High cholesterol diagnosed, managed by unknown, HTN diagnosed in managed by unknown, Sleep apnea diagnosed in managed by unknown, Thyroid disease diagnosed in managed by unknown, bladder cancer diagnosed 2022, managed by Oncology. * Surgical History: a ppendectomy/ [facility] /unknown 09/1997, carpal tunnel release [facility]/unknown , right index finger/ [facility] unknown, right elbow/ [facility] /unknown unknown, kidney/ [facility] (OP) 2016, lumbar spine fusion/ [facility]/ Dr. Green 3 day stay 03/2014,, shoulder/ Bicep/ Dr. Wu/ [facility] 01/2016, Hydroseal/ [facility] 10/2022, Lumbar spine [facility] 3 days stay 2020. * Hospitalization/Major Diagno stic Procedure: D enies Past Hospitalization. * Family History: N on-Contributory. Denies Family Hx of Substance Abuse. * Social History: S moking: yes 1 PPD . P ersonal History Drug Use: No. Alcohol: No. * Medications: T aking famotidine 20 mg tablet 1 tab(s) orally 2 times a day , Taking tamsulosin 0.4 mg capsule 1 cap(s) orally once a day , Taking lisinopril 40 mg tablet 1 tab(s) orally once a day , Taking venlafaxine 150 mg capsule, extended release 1 cap(s) orally once a day , Taking Mounjaro 2.5 mg/0.5 mL solution as directed subcutaneously once a week , Taking Lyrica 300 mg capsule 1 cap(s) orally 2 times a day , Taking atorvastatin 10 mg tablet 1 tab(s) orally once a day , Taking Acetaminophen-Hydrocodone Bitartrate 325 mg-7.5 mg tablet 1 tab(s) orally three to four times a day , Medication List reviewed and reconciled with the patient * Allergies: p enicillin: dizziness - Side Effects, etanercept: stomach upset - Allergy. Objective: * Vitals: * Examination: G eneral Examination: Nurse/Leader Tier: Edson hollins(MA-Pankaj)Renae 02/25/2024 8:34:44 AM > . General Appearance: w ell-nourished individual in no acute distress. The patient is alert and oriented and cooperative for evaluation. HEENT: unremarkable. Neck, Thyroid : supple. Heart: r egular rate. Lungs: r egular rate/effort, non labored breathing.. Neurologic Exam: P atient ambulates with an antalgic gait, pitched forward. Skin normal, no rash. SI Joint + FABERS/PATRICKS FILEMON w SIJ pain., +COMPRESSION TEST FILEMON, +DISTRACTION TEST FILEMON. Extremities: no clubbing, no edema. ? L umbar Spine/Lower Back: Palpation: diffuse tenderness throughout lumbar region, most particularly over lower lumbar facet joints. Spasms absent. Inspection: L arge well-healed midline scar. Gait: antalgic gait, shuffling gait. Straight leg raising test: negative bilaterally. Sensory exam: s ensation intact to light touch throughout bilateral lower extremities, no edema or discoloration noted. Motor system: m otor strength 5/5 in all muscle groups bilaterally. Range of motion: R OM moderately limited, moderate pain induced. Hyperextension - Pain with Facet loading. Patricks test Positive bilaterally fabers on the RT . Assessment: * Assessment: 1. 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 U nspecified osteoarthritis, unspecified site - M19.90 3 . R heumatoid arthritis, unspecified - M06.9 4 . S pondylosis without myelopathy or radiculopathy, lumbar region - M47.816 5 . R adiculopathy, lumbar region - M54.16 6 . S acroiliitis, not elsewhere classified - M46.1 7 . T rochanteric bursitis, unspecified hip - M70.60 02/25/24 Noe presents for follow up. He has been diagnosed with rheumatoid arthritis and has been on many immunomodulators, currently on an infusion every 4 weeks. In addition he had major back surgeries at the [facility] with Dr. Waylon Green, performed in 2020 which was a lumbar fusion (L3-S1). He is going to try and pursue further surgery once his cancer stabilizes. Here today for office visit and medication refills. Patient with a history of bladder cancer that is following up with [facility] at . Denies any significant changes in intensity in pain. Denies any changes or health concerns. Taking [place] 7.5/325 mg 3-4 times per day with relief. Denies side effects. Continues Lyrica with PCP. Declines injection therapy. Vero and UDS reviewed in room. Follow up in 2 months. Plan: * Treatment: * Procedures: [facility] FRY ENCOUNTER AND OVERSIGHT: Consult Performed By: Augusto raphael([facility]),Lauren 02/25/2024 8:55:25 AM > . c ollaborated treatment plan with Amrik Keen M.D., supervising physician who was present in office during consultation. * Follow Up: 2 Months * * Electronic signature of Solomon Keen II, M.D. on 08/24/2025 at 01:03 PM PUMP ASSEMBLER Sign off status: Pending * Provider: Amrik Keen II, M.D. Date: 0 04/17/2024 Generated for Al santos/Yimi/Noemismitting on: 10/24/2024 01:03 PM PUMP ASSEMBLER History and Physical Notes * HPI (History of Present Illness) Category Sub-Category Detail Notes Category Not es PAIN MANAGEMENT TREATMENT HISTORY SUMMARY OF INITIAL EVALUATION: 12/26/2021 New patient consults referred by Dr. Telles for chronic pain. onset unknown without incident He has been diagnosed with rheumatoid arthritis and has been on many immunomodulators currently on an infusion. He has been diagnosed with RA for many years. In addition he has had major back surgeries at the [facility] with Dr. Waylon Green the last one was performed a year ago which was a lumbar fusion. He has significant pain in his lower back and neck but also diffuse pain throughout his joints. His most severe pain is in his low back and hips. He denies any urinary fecal incontinence or saddle anesthesia. He does have COPD and is a 2 pack-a-day smoker. He also has AMALIA and uses a machine at bedtime. He is currently taking tramadol 4 times a day with minimal relief. On examination he walks with a severe antalgic gait pitched forward. There is a large well-healed midline surgical scar. There is significant pain with back extension and lateral rotation. SI joint examination bilaterally was positive for provocative tests that is consistent with bilateral sacroiliitis. In addition there is significant tenderness over the bilateral trochanteric bursa. Neck examination is consistent with cervical spondylosis. We are going to request all images from [facility] to review. I am going to schedule him for a #1 bilateral SI joint injection. If he gets any significant relief even short duration, we may consider lateral branch blocks of the SI joint at S1-3 and RFA to minimize steroid requirements for long-term relief. I will start him on [place] 7.5 mg 3-4 times per day as needed for his current pain symptoms. We will consider trochanteric bursa injections as well as lumbar facet work-up in the future. He does take high-dose Lyrica for his diabetic peripheral neuropathy and if this becomes ineffective, we may consider HF 10 therapy with dorsal column stimulation. Vero was reviewed and appropriate. Opioid risk assessment is high due to underlying COPD and obstructive sleep apnea IMAGING HISTORY: 05/10/2017 XR LUMBAR:Uncomplicated appearing L5-S1 fusion 06/17/2019 XR LUMBAR:Uncomplicated appearing L5-S1 fusion. Very subtle malaligment L3-4 No instability 07/13/2020 MRI LUMBAR:Interval surgical flaxation posteriorly at L5-S1. The surgical hardware cannot be assessed by MRI technique apparent mild scoliosis of the thoracolumbar spine,convex to the right ,Might be postional in nature.The sagittal images show some loss of the lumbar lordosis.Interval development of mild anterior listhesis of L3 on L4, Veetebral body heights are ormal . Small multilevel Schmorls nodes are agin noted,Disc desiccation at L4-5 amd L5 -S1 again noted, Disc height loss mild in and L3-4 and L1-2 and L3-4 and moderate to severe at L4-5 progressed, Moderate degenerative bone marrow signal change at L4-5 , Several peripelvic cysts of both the partially visualized kidneys 09/22/2020 XR LUMBAR:Grade 1 anterior listhesis L3-4 , No instability unusual apperance of the L4-5 dsc narrowed anteriorly and one posteriorly. Previous L5-S1 fusion with no definate complication 09/22/2020 CT LUMBAR:The patient status post PLIF at L5-S1, There is no evidence of loosing of the hardware. There is severe bilateral neural foraminal stenosis from L3-4 through L5-S1. There is severe central canal stenosis at L3-L4, mild to moderate central canal narrowing at L4-L5 and mild central canal narrowing at L2- L3 12/14/2020 XR LUMBAR:Spinal fusion is noted at L3-S1 level with pedicular screws and connecting rods , Surgical hardware is satisfactory places . No evidence of loosing or infection is seen . Mild degenerativechanges are seen at other levels 02/09/2021 XR LUMBAR:Spinal fusion is noted at L3-L5 level with pedicular screws and connecting rods. Surgical hardware is satisfactory places , No evidnce of loosing or infection is seen.Other levels are normal 03/17/2021 XR LUMBAR:Spinal fusion is noted at L3-S1 level with pedicular screws and connecting rids at L3-L5, Surgical hardware is satisfactorily placed. No evidence of loosening or infection is seen , Other levels are normal PHYSICAL/AQUA THERAPY/DME/OT HER HISTORY: 2021 Physical Therapy program completed- Helpful, completed at [facility] physical therapy PERTINENT SURGICAL EVALUATIONS/SPECIALIST CONSULTS Prior Back surgery: Lumbar fusion L4/5 Eval by Surgeon: Dr. Green PREVIOUS INJECTION\PROCEDURE HISTORY: 01/12/2022 #1 SIJI FILEMON 80% relief for 1 hour PREVIOUS PAIN CLINIC CARE: Denies COMPLIANCE RISK ASSESSMENT AND STRATIFICATION: RISK GROUP: HIGH RISK Concominant use of the following medications: opioid, Membrane stabilizer..... Lung disorder URINE DRUG TESTIN01/31/2023 Screen Expected 03/27/2023 Screen Expected Definitive Expected 05/21/2023 Screen Unexpected (+BZO) Definitive Unexpected (+BZO) 07/16/2023 Screen Expected 09/10/2023 Screen Expected 11/02/2023 Screen Expected Definitive Expected 01/02/2024 Screen Expected 02/25/2024 Screen Expected MONITORING: Morphine Equivalent (MME):28 VERO reviewed today and appropriate TESTING/RISK ASSESSMENTS ORT Score/Result: 0 TODAYS PAIN EVALUATION MEDICATION FOLLOW UP: The patient is currently prescribed [place] 7.5/325 mg TID and Lyrica 225 mg BID (PCP)which provides 60% relief of pain symptoms for 3 hours. The last dose was taken 02/25/2024 . Denies side effects CURRENT PAIN SYMPTOMS: Location of Worst Pain:: Low Back, Leg(s) Pain Frequency:: constant, always Pain Description:: aching, sharp Average Pain Score VAS:: 7 Pain Exacerbation:: alot of walking,wilton ding Pain Alleviation:: Sitting down ADL/Quality of Life Interference:: Every thing Examination Category Sub-Category Detail Notes Category Not es General Examination HEENT: unremarkable Neck, Thyroid : supple Heart: regular rate Lungs: regular rate/effort, non labored breathing. Extremities: no clubbing, no ermelinda a General Appearance: well-nourished indiv idual in no acute distress. The patient is alert and oriented and cooperative for evaluation Skin normal, no rash Neurologic Exam: Patient ambulates wi th an antalgic gait, pitched forward SI Joint +FABERS/PATRICKS FILEMON w SIJ pain., +COMPRESSION TEST FILEMON, +DISTRACTION TEST FILEMON Nurse/Leader Tier: Renae Sawyer (MA-Lex) 02/25/2024 8:34:44 AM > Lumbar Spine/Lower Back Straight leg raising test: neg ative bilaterally Motor system: motor strength 5/5 i n all muscle groups bilaterally Sensory exam: sensation intact to light touch throughout bilateral lower extremities, no edema or discoloration noted Gait: antalgic gait, shuff ling gait Range of motion: ROM moderately limit ed, moderate pain induced. Hyperextension - Pain with Facet loading Inspection: Large well-healed mi dline scar Palpation: diffuse tenderness t hroughout lumbar region, most particularly over lower lumbar facet joints. Spasms absent Patricks test Positive bilaterally fabmarnie on the RT
--- OUTSIDE RECORDS SUMMARY | 2024-04-18 03:30 | XMS_ITS ---
Author Organization [facility] Address [address] [place] [address] Care Team Providers Care [place] Name Role Phone Khadijah Hanna APRN, Mem Primary Care Provider Roger Briceño II Unavailable [phone] 2 [place] DO -Vessel Crew Member David DUKE Unavailable Unavailable REASON FOR VISIT 2 Month Follow Up Encounters Encounter Location Date Provider Diagnosis [facility] [address] [place] [address] 04/18/2024 Roger Keen Plan Of Treatment No Information Progress Notes * Noe CRAVENDOB:1960 ( 65 yo M)Acc No.[id number]:04/18/2024 FollowUP Patient: Noe DIAZ Provider: Amrik Keen II, M.D. :1960 A ge:64 Y S ex:Male Date:04/18/2024 Address:[address] [place], [place] [id number] Pcp:Khadijah dixon Mem Subjective: * Chief Complaints: * 1 . 2 Month Follow Up. * Medical History: Objective: * Vitals: Assessment: Plan: * Treatment: * * Electronic signature of Soolmon Keen II, M.D. on 08/24/2025 at 01:03 PM WATCHER [employer] Sign off status: Pending * Provider: Amrik Keen II, M.D. Date: 0 04/18/2024 Generated for Al santos/Yimi/Shayne on: 10/24/2024 01:03 PM WATCHER [employer]
--- OUTSIDE RECORDS SUMMARY | 2024-08-14 03:30 | XMS_ITS ---
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 [employer] David DUKE Unavailable Unavailable Allergies Allergen (clinical drug ingredient) Drug/Non Drug Allergy documented on EMR Reaction Allergy Type Onset Date Status penicillin dizziness Drug Allergy Active etanercept stomach upset Drug Allergy Ac tive REASON FOR VISIT Low back pain, leg pain Medications Medication SIG (Take, Route, Frequency, Duration) Notes Start Date End Date Status Mounjaro 2.5 mg/0.5 mL as directed subcutaneously once a week 02/11/2024 Active Acetaminophen-Hydroc odone Bitartrate 325 mg-7.5 mg 1 tab(s) orally three to four times a day; Duration: 28 days OCTOBER 2023 RX, DO NOT FILL SOONER THAN 28 DAYS, (OK TO FILL EARLY, ONLY IF CLOSED) Active Lyrica 300 mg 1 cap(s) orally 2 times a day 02/11/2024 Active atorvastatin 10 mg 1 tab(s) orally once a day; Duration: 30 day(s) 02/11/2024 Active venlafaxine 150 mg 1 cap(s) orally once a day; Duration: 30 day(s) 03/16/2022 Active Acetaminophen-Hydroc odone Bitartrate 325 mg-7.5 mg [...] Encounter Location Date Provider Diagnosis [facility] [address] [place] [address] 08/14/2024 Roger Keen Other alf (current) drug therapy Z79.899 ; Unspecified osteoarthritis, unspecified site M19.90 ; Rheumatoid arthritis, unspecified M06.9 ; Spondylosis without myelopathy or radiculopathy, lumbar region M47.816 ; Radiculopathy, lumbar region M54.16 ; Sacroiliitis, not elsewhere classified M46.1 and Trochanteric bursitis, unspecified hip M70.60 Assessments Encounter Date Diagnosis (ICD Code) Assessment Notes Treatment Notes Treatment Clinical Notes Section Notes 08/14/2024 Other intermediate designer (current) drug therapy (ICD-10 - Z79.899) 06/19/24 1. Refill Croydon 7.5/325mg TID-QID 2. Continue Lyrica 225mg BID with PCP 3. Consider SLBB in the future, declines 4. Follow up 2 months 5. Continue to follow-up with [facility] 06/19/24 Noe presents for follow up. He has been diagnosed with rheumatoid arthritis and has been on many immunomodulators , currently on an infusion every 4 weeks. In addition he had major back surgeries at the [facility] with Dr. Waylon Green, performed in 2020 which was a lumbar fusion (L3-S1). He is going to try and pursue further surgery once his cancer stabilizes. Patient reports no changes in the character or intensity of his pain. He reports that he has not had a treatment for his bladder cancer approximately 4 weeks ago. Taking Croydon 7.5/325 mg 3-4 times per day with relief. Denies side effects. Continues Lyrica with PCP. Declines injection therapy. Vero and UDS reviewed in room. Follow up in 2 months. 08/14/2024 Unspecified osteoarthritis, unspecified site (ICD-10 - M19.90) 06/19/24 Noe presents for follow up. He has been diagnosed with rheumatoid arthritis and has been on many immunomodulators , currently on an infusion every 4 weeks. In addition he had major back surgeries at the [facility] with Dr. Waylon Green, performed in 2020 which was a lumbar fusion (L3-S1). He is going to try and pursue further surgery once his cancer stabilizes. Patient reports no changes in the character or intensity of his pain. He reports that he has not had a treatment for his bladder cancer approximately 4 weeks ago. Taking Croydon 7.5/325 mg 3-4 times per day with relief. Denies side effects. Continues Lyrica with PCP. Declines injection therapy. Vero and UDS reviewed in room. Follow up in 2 months. 08/14/2024 Rheumatoid arthritis, unspecified (ICD-10 - M06.9) 06/19/24 Noe presents for follow up. He has been diagnosed with rheumatoid arthritis and has been on many immunomodulators , currently on an infusion every 4 weeks. In addition he had major back surgeries at the [facility] with Dr. Waylon Green, performed in 2020 which was a lumbar fusion (L3-S1). He is going to try and pursue further surgery once his cancer stabilizes. Patient reports no changes in the character or intensity of his pain. He reports that he has not had a treatment for his bladder cancer approximately 4 weeks ago. Taking Croydon 7.5/325 mg 3-4 times per day with relief. Denies side effects. Continues Lyrica with PCP. Declines injection therapy. Vero and UDS reviewed in room. Follow up in 2 months. 08/14/2024 Spondylosis without myelopathy or radiculopathy, lumbar region (ICD-10 - M47.816) 06/19/24 Noe presents for follow up. He has been diagnosed with rheumatoid arthritis and has been on many immunomodulators , currently on an infusion every 4 weeks. In addition he had major back surgeries at the [facility] with Dr. Waylon Green, performed in 2020 which was a lumbar fusion (L3-S1). He is going to try and pursue further surgery once his cancer stabilizes. Patient reports no changes in the character or intensity of his pain. He reports that he has not had a treatment for his bladder cancer approximately 4 weeks ago. Taking Croydon 7.5/325 mg 3-4 times per day with relief. Denies side effects. Continues Lyrica with PCP. Declines injection therapy. Vero and UDS reviewed in room. Follow up in 2 months. 08/14/2024 Radiculopathy, lumbar region (ICD-10 - M54.16) 06/19/24 Noe presents for follow up. He has been diagnosed with rheumatoid arthritis and has been on many immunomodulators , currently on an infusion every 4 weeks. In addition he had major back surgeries at the [facility] with Dr. Waylon Green, performed in 2020 which was a lumbar fusion (L3-S1). He is going to try and pursue further surgery once his cancer stabilizes. Patient reports no changes in the character or intensity of his pain. He reports that he has not had a treatment for his bladder cancer approximately 4 weeks ago. Taking Croydon 7.5/325 mg 3-4 times per day with relief. Denies side effects. Continues Lyrica with PCP. Declines injection therapy. Vero and UDS reviewed in room. Follow up in 2 months. 08/14/2024 Sacroiliitis, not elsewhere classified (ICD-10 - M46.1) 06/19/24 Noe presents for follow up. He has been diagnosed with rheumatoid arthritis and has been on many immunomodulators , currently on an infusion every 4 weeks. In addition he had major back surgeries at the [facility] with Dr. Waylon Green, performed in 2020 which was a lumbar fusion (L3-S1). He is going to try and pursue further surgery once his cancer stabilizes. Patient reports no changes in the character or intensity of his pain. He reports that he has not had a treatment for his bladder cancer approximately 4 weeks ago. Taking Croydon 7.5/325 mg 3-4 times per day with relief. Denies side effects. Continues Lyrica with PCP. Declines injection therapy. Vero and UDS reviewed in room. Follow up in 2 months. 08/14/2024 Trochanteric bursitis, unspecified hip (ICD-10 - M70.60) 06/19/24 Noe presents for follow up. He has been diagnosed with rheumatoid arthritis and has been on many immunomodulators , currently on an infusion every 4 weeks. In addition he had major back surgeries at the [facility] with Dr. Waylon Green, performed in 2020 which was a lumbar fusion (L3-S1). He is going to try and pursue further surgery once his cancer stabilizes. Patient reports no changes in the character or intensity of his pain. He reports that he has not had a treatment for his bladder cancer approximately 4 weeks ago. Taking Croydon 7.5/325 mg 3-4 times per day with [...] IF CLOSED) Treatment Notes Assessment Notes Other intermediate designer (current) drug therapy 06/19/24 1. Refill Croydon 7.5/325mg TID-QID 2. Continue Lyrica 225mg BID with PCP 3. Consider SLBB in the future, declines 4. Follow up 2 months 5. Continue to follow-up with Oncology Pending Test Test Name Order Date Urine Test ANALYZER 08/14/2024 Next Appt Details Follow Up: 2 Months, Reason: Procedure Notes * Category Sub-Category Detail Notes PROVIDER ENCOUNTER AND OVERSIGHT Consult Performed By: Lauren Mendes (ARNP-LEX) 06/19/2024 8:50:10 AM > collaborated treatment plan with Roger weiss M.D., supervising physician who was present in office during consultation Progress Notes * Noe SILVESTREDOB:1960 ( 65 yo M)Acc No.[id number]:08/14/2024 FollowUP Patient: Noe DIAZ Provider: Amrik Keen II, M.D. :1960 A ge:64 Y S ex:Male Date:08/14/2024 Address:[address] [place], [place] [id number] Pcp:Eugzoie dixon [facility] Subjective: * Chief Complaints: * 1 . Low back pain. 2. Leg pain. * HPI: T ODAYS PAIN EVALUATION: 64 year old male presents with c/o MEDICATION FOLLOW UP: T he patient is currently prescribed Croydon 7.5/325 mg TID and Lyrica 225 mg BID (PCP)which provides % relief of pain symptoms for hours. The last dose was taken 0 06/19/2024 . Denies side effects. CURRENT PAIN SYMPTOMS: L ocation of Worst Pain: L ow Back, Hip(s), Knee(s), P ain Frequency: c onstant, P ain Description: a phyllis, sharp, stabbing, A verage Pain Score VAS: 8 , P ain Exacerbation: walking, P ain Alleviation: Sitting down, laying down, A DL/Quality of Life Interference: Everything.? P AIN MANAGEMENT TREATMENT HISTORY: IMAGING HISTORY: [...] peripelvic cysts of both the partially visualized [id number]/22/2020 XR LUMBAR:Grade 1 anterior listhesis L3-4 , [...] completed- Helpful, completed at [facility] physical [facility] . P ERTINENT SURGICAL [...] has had major back surgeries at the [facility] with Dr. Waylon Green the last one [...] are going to request all images from [facility] to review. I am going to schedule him for a #1 bilateral SI joint injection. If he gets any significant relief even short duration, we may consider lateral branch blocks of the SI joint at S1-3 and RFA to minimize steroid requirements for long-term relief. I will start him on Croydon 7.5 mg 3-4 times per day as [...] Lung disorder . U RINE DRUG TESTIN 07/16/2023 Screen Expected 1 11/10/2022 Screen Expected 0 11/02/2023 Screen Expected Definitive Expected 0 01/02/2024 Screen Expected 0 02/25/2024 Screen Expected 0 04/28/2024 Screen Expected Definitive Expected 0 06/19/2024 Screen Expected . M ONITORING: M orphine [...] by Oncology. * Surgical History: a ppendectomy/ [facility] /[facility] 09/1997, carpal tunnel release [facility] , right index finger/ [facility] unknown, right elbow/ [facility] /unknown unknown, kidney/ [facility] (OP) 2016, lumbar spine fusion/ [facility]/ Dr. Green 3 day stay 03/2014,, shoulder/ Bicep/ Dr. Wu/ [facility] 01/2016, Hydroseal/ [facility] 10/2022, Lumbar spine [place] 3 days stay 2020. * Hospitalization/Major Diagno [...] * Vitals: * Examination: G eneral Examination: Nurse/Threader Operator: Rosalinda waterman(Nahomi Wheeler 06/19/2024 8:14:10 AM > . General Appearance: w ell-nourished [...] . Assessment: * Assessment: 1. O ther alf (current) drug therapy - Z79.899 (Primary) 2 . U nspecified osteoarthritis, unspecified site - M19.90 3 . R heumatoid arthritis, unspecified - M06.9 4 . S pondylosis without myelopathy or radiculopathy, lumbar region - M47.816 5 . R adiculopathy, lumbar region - M54.16 6 . S acroiliitis, not elsewhere classified - M46.1 7 . T rochanteric bursitis, unspecified hip - M70.60 06/19/24 Noe presents for follow up. He has been diagnosed with rheumatoid arthritis and has been on many immunomodulators, currently on an infusion every 4 weeks. In addition he had major back surgeries at the [facility] with Dr. Waylon Green, performed in 2020 which was a lumbar fusion (L3-S1). He is going to try and pursue further surgery once his cancer stabilizes. Patient reports no changes in the character or intensity of his pain. He reports that he has not had a treatment for his bladder cancer approximately 4 weeks ago. Taking Croydon 7.5/325 mg 3-4 times per day with relief. Denies side effects. Continues Lyrica with PCP. Declines injection therapy. Vero and UDS reviewed in room. Follow up in 2 months. Plan: * Treatment: * Procedures: [facility] ENCOUNTER AND OVERSIGHT: Consult Performed By: Augusto raphael(DICE SPOTTER-PANKAJ),Lauren 06/19/2024 8:50:10 AM > . c ollaborated treatment plan with Amrik Keen M.D., supervising physician who was present in office during consultation. * Follow Up: 2 Months * * Electronic signature of Solomon Keen II, M.D. on 08/24/2025 at 01:04 PM CLEARING DISTRIBUTION CLERK Sign off status: Pending * Provider: Amrik Keen II, M.D. Date: Generated for Al santos/Yimi/Phoenixitting on: 10/24/2024 01:04 PM CLEARING DISTRIBUTION CLERK History and Physical Notes * HPI (History [...] has had major back surgeries at the [facility] with Dr. Waylon Green the last one [...] are going to request all images from [facility] to review. I am going to schedule him for a #1 bilateral SI joint injection. If he gets any significant relief even short duration, we may consider lateral branch blocks of the SI joint at S1-3 and RFA to minimize steroid requirements for long-term relief. I will start him on Croydon 7.5 mg 3-4 times per day as [...] completed- Helpful, completed at [facility] physical therapy PERTINENT SURGICAL EVALUATIONS/SPECIALIST CONSULTS Prior Back surgery: Lumbar fusion L4/5 Eval by Surgeon: Dr. Green PREVIOUS INJECTION\PROCEDURE HISTORY: 01/12/2022 #1 SIJI FILEMON 80% relief for 1 hour PREVIOUS PAIN CLINIC CARE: Denies COMPLIANCE RISK ASSESSMENT AND STRATIFICATION: RISK GROUP: HIGH RISK Concominant use of the following medications: opioid, Membrane stabilizer..... Lung disorder URINE DRUG TESTIN07/16/2023 Screen Expected 09/10/2023 Screen Expected 11/02/2023 Screen Expected Definitive Expected 01/02/2024 Screen Expected 02/25/2024 Screen Expected 04/28/2024 Screen Expected Definitive Expected 06/19/2024 Screen Expected MONITORING: Morphine Equivalent (MME):28 VERO reviewed today and appropriate TESTING/RISK ASSESSMENTS ORT Score/Result: 0 TODAYS PAIN EVALUATION MEDICATION FOLLOW UP: The patient is currently prescribed Croydon 7.5/325 mg TID and Lyrica 225 mg BID (PCP)which provides % relief of pain symptoms for hours. The last dose was taken 06/19/2024 . Denies side effects CURRENT PAIN SYMPTOMS: Location of Worst Pain:: Low Back, Hip(s), Knee(s) Pain Frequency:: constant Pain Description:: aching, sharp, stabbi ng Average Pain Score VAS:: 8 Pain Exacerbation:: walking Pain Alleviation:: Sitting down, laying down ADL/Quality of Life Interference:: Every thing [...] pain., +COMPRESSION TEST FILEMON, +DISTRACTION TEST FILEMON Nurse/Threader Operator: Bernie-Omero Pichardo 06/19/2024 8:14:10 AM > Lumbar Spine/Lower Back Straight leg [...]
--- NOTE | 2025-08-24 13:45 | CA_ITS ---
APPROVED REPORT EXAM: Comprehensive 2D, Doppler, and color-flow Echocardiogram [employer]: Ruth Ann Emmanuel CRT Ht: 5 ft 9 in Wt: 208lbs BSA: 2.10 BP: 133/71 mmHg Indications: COPD, Diabetes, CAD, Hyperlipidemia, Hypertension/HDD, PAD, PVD, stents, smoker 2D Dimensions LA Volume 48.40 mL LA Volume Index 22.50 mL/m2 (M/F) 16-34 M-Mode Dimensions RVDd 2.54 cm (0.9-2.6) LA Diam 4.28 cm (1.9-4.0) LVDd 5.56 cm (3.5-5.7) LVDs 3.42 cm (3.5-5.7) IVSd 1.45 cm (0.6-1.1) PWd 1.13 cm (0.6-1.1) EF (Teich) 68.20% FS 38.50% EDV (Teich) 151.20 mL TAPSE 2.58 (<1.7) ESV (Teich) 48.10 mL LV Diastology E Decel Time 327 (160-240 msec) E/A Ratio 0.97 MED A' 9.40 cm/s LAT A' 10.40 cm/s Aortic Valve AO Peak GR. 5.50 mmHg Mitral Valve MV A Velocity 53.0 (40-130 cm/s) E/A Ratio 0.97 Pulmonary Valve PV Peak Velocity 112.0 (50-150 cm/s) Tricuspid Valve TR P. Velocity 193.00 cm/s RAP Estimate 10.00 mmHg RVSP 25.00 mmHg Left Ventricle The left ventricle is normal size. Left ventricular systolic function is low-normal. There is increased left ventricular wall thickness. There is mild hypokinesis of the septal LV wall. The left ventricular diastolic function is normal. LVEF is 50% Right Ventricle The right ventricle is normal size. The right ventricular systolic function is normal. Atria Left atrium is mildly dilated. Right atrium is mildly dilated. There is no color Doppler evidence of interatrial shunt. Aortic Valve The aortic valve opens well. There is no hemodynamically significant aortic valvular stenosis. No aortic regurgitation is present. Mitral Valve The mitral valve is normal in structure. No evidence of mitral valve stenosis. Trace mitral regurgitation is present. Tricuspid Valve The tricuspid valve leaflets are thin and pliable. Trace tricuspid regurgitation. There is insufficient TR jet to estimate RVSP. Pulmonic Valve The pulmonary valve is grossly normal in structure. Trace pulmonic valve regurgitation is present. Great Vessels The aortic root is normal in size. IVC is normal in size and collapses >50% with inspiration. Pericardium There is no pericardial effusion. Other Information Study Quality: Fair Conclusion Low-normal LV systolic function (LVEF 50%). Mild biatrial dilation. No significant valvular stenosis or regurgitation. Compared to prior TTE from 09/05/2024, there is a slight improvement in LV systolic function. Electronically signed by : Francisca Gilliland MD 08/24/2025 15:11:16
--- OUTSIDE RECORDS SUMMARY | 2025-08-24 14:03 | XMS_ITS | Encounter Summary ---
Author Organization [employer] ([place], [place], [place], [place], [place]) Address [address] [place] [address] Care Team Providers Care Water Quality Manager Name Role Phone Unavailable Primary Care Provider Luz Maria thomas Encounter Details Date Type Department Care Team (Late st Contact Info) Description 10/31/2020 Transcribed Document [facility] [place] [facility] [place] [address] ProviderFarhan MD [address] [place], [place] [id number] Social History Tobacco Use Types Packs/Day Years [...] - Historical ProviderMD - 10/31/2020 2:00 AM OBJECT ORIENTED PROGRAMMER Registered Nurse Bone Marrow Transplant Details Entered On: 10/31/2020 2:40 EST Performed [...] 10/31/2020 2:40 EST Electronically signed by Kailey [facility] Conversion Fire Fighters Dispatcher Cerner at 02/08/2023 12:39 PM CDT documented in this encounter Plan of Treatment Not on file documented as of this encounter Visit Diagnoses Not on filedocumented in this encounter
--- OUTSIDE RECORDS SUMMARY | 2025-08-24 14:03 | XMS_ITS | Encounter Summary ---
Author Organization [employer] ([place], [place], [place], [place], [place]) Address [address] [place] [address] Care Team Providers Care Epic Kaleidoscope Analyst Name Role Phone Unavailable Primary Care Provider Unavailabl e Encounter Details Date Type Department Care Team (Late st Contact Info) Description 10/31/2020 Transcribed Document [facility] Neurology - [facility] [address] [facility] [address] [place] [address] Addie Veliz Jr., MD [address] [facility] [address] [place] [address] Social History Tobacco Use Types [...]
--- OUTSIDE RECORDS SUMMARY | 2025-08-24 14:03 | XMS_ITS | Encounter Summary ---
Author Organization [employer] ([place], [place], [place], [place], [place]) Address [address] [place] [address] Care Team Providers Care Enterprise Application Architect Name Role Phone Unavailable Primary Care Provider Luz Maria thomas Encounter Details Date Type Department Care Team (Late st Contact Info) Description 10/31/2020 Transcribed Document [facility] Family Medicine [address] [place] [address] ProviderFarhan MD [address] [id number] Social History Tobacco Use Types Packs/Day Years [...] - Historical ProviderMD - 10/31/2020 5:00 AM CURB AND GUTTER LABORER Chart Check - Review Order Profile Entered [...]
--- OUTSIDE RECORDS SUMMARY | 2025-08-24 14:03 | XMS_ITS | Encounter Summary ---
Author Organization [employer] ([place], [place], [place], [place], [place]) Address [address] [place] [address] Care Team Providers Care Woodworking Machine Setter Name Role Phone Unavailable Primary Care Provider Unavailabl e Encounter Details Date Type Department Care Team (Late st Contact Info) Description 10/31/2020 Transcribed Document [facility] Radiology [address] [place] [address] Mary Beth Orr MD [address] [address] Social History Tobacco Use Types [...] is a 60 yo male admitted to [facility] per Dr. Green for an L3-5 [...] 100 mg intravenous injection 1 Infusion, IntraVENous, [id number] Jardiance 25 mg oral tablet 25 mg [...] Last Charted Minimum Maximum Temp 97.5 (OCT 31 06:00) 97.5 (OCT 31:00) 98.5 (OCT 30:) Mon HR 85 (OCT 31:) 84 (OCT 30 21:20) 93 (OCT 30 18:10) Resp Rate 16 (OCT 31:00) 16 (OCT 30 14:53) 17 (OCT 30:00) SBP 100 (OCT 31:00) 100 (OCT 31:00) 137 (OCT 30:00) DBP L 53 (OCT 31:00) L 53 [...]
--- OUTSIDE RECORDS SUMMARY | 2025-08-24 14:03 | XMS_ITS | Encounter Summary ---
Author Organization [employer] ([place], [place], [place], [place], [place]) Address [address] [place] [address] Care Team Providers Care Die Machine Operator Name Role Phone Unavailable Primary Care Provider Unavailabl e Encounter Details Date Type Department Care Team (Late st Contact Info) Description 10/31/2020 Transcribed Document [facility] [place] [place] Family Medicine [place] [address] ProviderFarhan MD [address] [place], [place] [id number] Social History Tobacco Use Types Packs/Day Years [...] - Historical ProviderMD - 10/31/2020 3:52 PM CIRCLE BEVELER Final Discharge Planning Entered On: 10/31/2020 15:53 EST Performed On: 10/31/2020 15:52 EST by SHAWNEE MAYORGA RN-Oncology Patient Navigator Final Discharge Planning Discharge Arrangements : Patient Post-Acute Information Patient Name: FRANSISCO CRAVEN Gender: Male : [birth year] Age: 60 Years No Post-Acute Placement(s) Listed No Post-Acute Service(s) Listed No Curaspan Referral(s) Listed Follow Up Appointment Scheduled : Yes Is Patient High/Moderate Readmission Risk? : No Discharge To Care Management : Home/Residential/Prison or Self Care - SHAWNEE MAYORGA RN-Oncology Patient Navigator - 10/31/2020 15:52 EST Final Narrative Note Final Narrative Note : To d/c home with . Per PLOF independent. Ordered walker and BSC from [facility] and to deliver to room prior to d/c. denies need for HH or other needs. SHAWNEE MAYORGA RN-Oncology Patient Navigator - 10/31/2020 15:52 EST Electronically signed by [facility], [facility] Conversion It Sales Representative Cerner at 02/08/2023 12:21 PM CDT documented in this encounter Plan of Treatment Not on file documented as of this encounter Visit Diagnoses Not on filedocumented in this encounter
--- OUTSIDE RECORDS SUMMARY | 2025-08-24 14:03 | XMS_ITS | Clinical Summary ---
Author Organization [facility] Address [address] [place] [address] Phone Care Team Providers Care Industrial Truck Driver Name Role Phone Lincoln Iqbal MD [ ] Conditions or Problems Problem Name Problem Code Onset Date Status Entry Date Provider Comment Standard Description Annotate terminal gauger (current) drug therapy, INH Z79.899 (ICD-10-CM ) 01/12 Active 01/12 Bobbi Eagle Other assisted (current) drug therapy Dysuria 77255732 (SNOMED CT) 12/19 Active 12/19 Lincoln Iqbal MD Dysuria Adverse drug reaction 116714718 (SNOMED CT) 12/19 Active 12/19 Lincoln Iqbal MD H/O: Disorder Nausea 610434128 (SNOMED CT) 12/19 Active 12/19 Lincoln Iqbal [...] involvement DM II with diabetic peripheral neuropathy 20760382 (SNOMED CT) Active Bobbi Eagle Type 2 [...] without damage to nail, initial encounter Obesity 874008788 (SNOMED CT) Inactive Bobbiarabella Eagle Obesity Diarrhea, antibiotic associated 440527395 (SNOMED CT) 11/20 Inactive 11/20 Bobbi Eagle Antibiotic-ass ociated diarrhea Diarrhea, antibiotic associated 284348388 (SNOMED CT) 11/20 Removed 11/20 Lincoln Iqbal MD Antibiotic-ass ociated diarrhea Obesity 742917317 (SNOMED CT) Removed Trish Napier RN Obesity [...] W Nicotine dependence, cigarettes, uncomplicated Tobacco abuse 24568176 (SNOMED CT) Inactive Lincoln Iqbal MD Tobacco [...] acute osteomyelitis, right hand Benign Essential Hypertension 4961793 (SNOMED CT) Active Bobbi Eagle Benign essential hypertension DM Type II E11.9 (ICD-10-CM ) Inactive Bobbi Eagle Type 2 diabetes mellitus without complications Dog bite, initial treatment encounter(s) W54.0xxA (ICD-10-CM ) Removed Bobbi Eagle Bitten by dog, initial encounter Medications Medication Instructions Start Date Stop Date Generic Name ND Provider RIFAMPIN 300 MG CAPS 2 daily RIFAMPIN [id number] Lincoln Iqbal MD ISONIAZID 300 MG TABS one daily ISONIAZID 29106434076 Lincoln Iqbal MD B-6 50 MG TABS one daily PYRIDOXINE HCL 67918655643 Lincoln Iqbal MD TRAMADOL HCL 50 MG TABS by mouth twice daily TRAMADOL HCL 72550100907 Devonte Holland CELEBREX 200 MG CAPS by mouth daily CELECOXIB 46832890857 Devonte Holland LYRICA 150 MG CAPS by mouth twice daily PREGABALIN 25623271926 Devonte Holland DIAZEPAM 5 MG TABS Take/use as needed. DIAZEPAM 77742723226 Devonte Holland MELOXICAM 15 MG TABS by mouth daily MELOXICAM 13391117576 Devonte Holland NORCO 10-325 MG ORAL TABLET HYDROCODONE-ACET AMINOPHEN 64257885766 Devonte Holland VICOPROFEN 7.5-200 MG ORAL TABLET HYDROCODONE-IBUP ROFEN 90928592277 Devonte Holland BACTRIM DS 800-160 MG TABS SULFAMETHOXAZOLE -TRIMETHOPRIM 21369207441 Devonte Holland MUPIROCIN 2 % OINT apply daily to finger MUPIROCIN 68110333973 Devonte Amalia CIPROFLOXACIN HCL 500 MG TABS 1 by mouth twice a day CIPROFLOXACIN HCL 78878012100 Devonte Holland MINOCYCLINE HCL 100 MG CAPS one pill by mouth twice daily MINOCYCLINE HCL 16971964529 Devonte Holland INVANZ 1 GM INTRAVENOUS SOLUTION RECONSTITUTED 1gm IV daily [facility] [phone](f) [phone] ERTAPENEM SODIUM 89988398387 Clementine Pablo MINOCYCLINE HCL 100 MG CAPS one pill by mouth twice daily MINOCYCLINE HCL 19688092891 Lincoln Iqbal MD CIPROFLOXACIN HCL 500 MG TABS 1 by mouth twice a day CIPROFLOXACIN HCL 74658747885 Lincoln Iqbal MD INVSALVADOR 1 GM INTRAVENOUS SOLUTION RECONSTITUTED 1gm IV daily [facility] [phone](f) [phone] ERTAPENEM SODIUM 35528935274 [facility] INVANZ 1 GM INTRAVENOUS SOLUTION RECONSTITUTED 1gm IV daily [facility] (f) [phone] ERTAPENEM SODIUM 73203080850 [facility] MINOCYCLINE HCL 100 MG CAPS 1 twice daily MINOCYCLINE HCL 69273753389 Shyanne Rangel RN CIPROFLOXACIN HCL 500 MG TABS 1 by mouth twice a day CIPROFLOXACIN HCL 66444745330 Shyanne Rangel RN CIPROFLOXACIN HCL 500 MG TABS 1 by mouth twice a day CIPROFLOXACIN HCL 05779984309 Lincoln Iqbal MD MINOCYCLINE HCL 100 MG CAPS 1 twice daily MINOCYCLINE HCL 33359717500 Lincoln Iqbal MD MUPIROCIN 2 % OINT apply daily to finger MUPIROCIN 88196046151 Lincoln Iqbal MD VITAMIN D2 50 MCG (1999 UT) TABS 1.25mg daily ERGOCALCIFEROL 03193450758 Parisa Marcial ALLEN LOW DOSE 81 MG TBEC by mouth daily ASPIRIN 63769765130 Parisa Marcial DIAZEPAM 5 MG TABS Take/use as needed. DIAZEPAM 22303296470 Parisa Marcial DICLOFENAC SODIUM 75 MG TBEC DICLOFENAC SODIUM 08724308065 Parisa Marcial LISINOPRIL 40 MG TABS by mouth daily LISINOPRIL 14359866882 Parisa Marcial LYRICA CAPS PREGABALIN CAPS 58898430601 Parisa Marcial METFORMIN HCL 500 MG TABS by mouth twice daily METFORMIN HCL 13299550140 Parisa Marcial MELOXICAM 15 MG TABS by mouth daily MELOXICAM 71421161397 Parisa Marcial VOLTAREN 1 % GEL DICLOFENAC SODIUM 44937733381 Parisa Marcial VOLTAREN 1 % GEL DICLOFENAC SODIUM 72551555941 Janet Madden VICOPROFEN 7.5-200 MG ORAL TABLET HYDROCODONE-IBUP ROFEN 72158923727 Janet Solanox NORCO 10-325 MG ORAL TABLET HYDROCODONE-ACET AMINOPHEN 39243700533 Janet Solanox METFORMIN HCL 500 MG TABS METFORMIN HCL 59252755671 Janet Griffindox MELOXICAM TABS MELOXICAM TABS 40298376819 Janet Madden LYRICA CAPS PREGABALIN CAPS 26970083726 Janet Madden LISINOPRIL 40 MG TABS LISINOPRIL 65082897300 Janet Madden LEVOTHYROXINE SODIUM TABS LEVOTHYROXINE SODIUM TABS 53260257141 Janet Madden EFFEXOR XR 75 MG AD65J-UDM VENLAFAXINE HCL 67260893872 Janet Madden DICLOFENAC SODIUM 75 MG TBEC DICLOFENAC SODIUM 68760245194 Janet Madden DIAZEPAM 5 MG TABS DIAZEPAM 69630730954 Janet Madden BACTRIM DS 800-160 MG TABS SULFAMETHOXAZOLE -TRIMETHOPRIM 66292371513 Janet Madden Medications Administered No information available. 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 SPECIALIST yes Dietary management education, guidance, and counseling [...] antibiotics 20 10/12/27 CPT-oral Discontinue oral antibiotics CPT-12011 CMP [id number] CBC with Differential 2018 CPT-98461 Urine Culture & Sensitivity CPT-06240 Urinalysis with microscopic exam CPT-patrice New Oral [...] New IV antibiotic CPT-patrice New Oral Antibiotic CPT-95065 PICC Line Insertion CPT-35940 PICC Line Insertion CPT-wpc Weekly PICC Line Care CPT- stat weekly Stat Weekly Labs [id number] CBC with Differential 2015 CPT-54066 CMP CPT-58235 C- reactive protein CPT-26059 Sedimentation Rate (ESR) 201 03/31/24 [address] Hepatitis C Atb: (ICD 10 Code: Z11.59) [...]
--- OUTSIDE RECORDS SUMMARY | 2025-08-24 14:03 | XMS_ITS | Encounter Summary ---
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 HELPER [facility] [address] FRANSISCO CRAVEN :1960 Visit Time:10/29/2020 [...] 1) tramadol (Ultram)--this will be replaced by [place] (hydrocodone-acetaminophen) call MD for fever greater than 101 degrees for 24 hours; increased pain,redness or swelling and/or drainage after 5 days Follow-Up Appointments Follow Up with ADDIE VELIZ When Within 2 weeks Comments concetta Where: [address] [place] [address] Business (1) Medications What How Much When Instructions Next Dose acetaminophen-hydrocodone ([place] 10 mg-325 mg oral tablet) 1 Tablet(s) [...] these instructions at home: Medicines ??? Take oyao-rtx-prgfefe and prescription medicines only as told by [...] cannot use soap and water, use hand stage director. ? Change your bandage as told by [...] your pee (urine) pale yellow. ? Take pmcn-olu-ubkdaec or prescription medicines. ? Eat foods that [...] 02/01/2012 Document Revised: 01/29/2020 Document Reviewed: 01/22/2018 [employer] Patient Education ?? 2020 new test [employer]. acetaminophen and hydrocodone (a SEET a MIN oh fen and michael droe KOE done) Hycet, Lorcet, [place], Verdrocet, Vicodin, Xodol, Zamicet What is the [...] may report side effects to FDA at 1-086-NZJ-5272. What other drugs will affect acetaminophen and [...] affect acetaminophen and hydrocodone, including prescription and kicl-kkt-dbldrlp medicines, vitamins, and herbal products. Not all [...] to ensure that the information provided by [employer]') is accurate, up-to-date, and complete, but no guarantee is made to that effect. Drug information contained herein may be time sensitive. [employer] information has been compiled for use by healthcare practitioners and consumers in the [place] and therefore [employer] does not warrant that uses outside of the [place] are appropriate, unless specifically indicated otherwise. [employer] drug information does not endorse drugs, diagnose patients or recommend therapy. [employer] drug information is an informational resource designed [...] effective or appropriate for any given patient. [facility] does not assume any responsibility for any aspect of healthcare administered with the aid of information [facility] [facility] provides. The information contained herein is not intended to cover all possible uses, directions, precautions, warnings, drug interactions, allergic reactions, or adverse effects. If you have questions about the drugs you are taking, check with your doctor, nurse or pharmacist. Copyright 2604-2029 [employer]. Version: 16.. Revision Date: 11/12/2019. Emergency Awareness and Preventative [...] Assistance with quitting is available by contacting 3-005-YFWL-NOW. This is a free resource providing counseling, [...] range between ( 0.0 and 7.0 ) [place] #: 1.07 K/uL -- Normal range between ( 0.16 and 1.00 ) [place] #: 0.03 x10(3)/uL -- Normal range between ( 0.00 and 0.80 ) [place] %: 7.3 % -- Normal range between [...] ) Urine Bilirubin Dipstick: Negative Urine Specific [place]: *1.028 -- Normal range between ( 1.005 [...] was given the opportunity to ask questions. Patient/Supervisor [employer] Name: Patient/Supervisor [employer] Signature: Relationship to Patient: Clinician/Hospital Supervisor [employer] Signature: Date: documented in this encounter Plan of Treatment Not on file documented as of this encounter Visit Diagnoses Not on filedocumented in this encounter
--- OUTSIDE RECORDS SUMMARY | 2025-08-24 14:03 | XMS_ITS | Encounter Summary ---
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 Initial Discharge Planning Entered On: 10/31/2020 14:51 EST Performed On: 10/31/2020 14:50 EST by SHAWNEE MAYORGA RN-Kick Plate Installer Initial Assessment I Previously Documented Living Environment [...] Is Guardianship Needed : No SHAWNEE MAYORGA RN-Kick Plate Installer - 10/31/2020 14:50 EST Initial Assessment II Sensory and Motor Deficits : None Current Home Treatments and Equipment : None SHAWNEE MAYORGA RN-Kick Plate Installer - 10/31/2020 14:50 EST Discharge Needs I Anticipated Discharge Date : 10/31/2020 EST Anticipated Discharge To, CM : Home with family care Current Home Treatment/Equipment : Current Home Treatment/Equipment No qualifying data available. Post Acute/Home Treatments : None Documentation Status Complete : Yes SHAWNEE MAYORGA RN-Kick Plate Installer - 10/31/2020 14:50 EST Discharge Needs II Professional Skilled Services : Professional Skilled Services No qualifying data available. Needs Assistance with Transportation : No Discharge Options Discussed with Patient : Discharge transportation, DME, Home Health SHAWNEE MAYORGA RN-Kick Plate Installer - 10/31/2020 14:50 EST documented in this encounter Plan of Treatment Not on file documented as of this encounter Visit Diagnoses Not on filedocumented in this encounter
--- OUTSIDE RECORDS SUMMARY | 2025-08-24 14:04 | XMS_ITS | Data Portability ---
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 Oral [...] visit 6. Request previous Chest CT from [facility] for comparison 7. Smoking Cessation-no current desire to quit 8. RTO in 1 month for medication follow up, sooner if needed The patient underwent pulmonary function testing today to evaluate complaints of dyspnea. Results were discussed with the patient. Portions of this note may be dictated using voice recognition software and or use of a medical services assistant. Variances in spelling and vocabulary are possible [...] software and or use of a medical services assistant. Variances in spelling and vocabulary are possible [...] history current smoker Home draw 2024 025 [email or web address] 6 [employer], [address] [place] [address], [place], [address], 10:25:20 Referral None recorded. Procedures None recorded. Surgeries None recorded. Imaging CT, chest, w/o contrast - Patient request to complete at PP; Please fax results to [phone]; Patient has hx bladder cancer, current BCG treatment on hold due to shortage. Evaluate pulmonary nodules. 2023 [email or web address] 6 Primary [facility], [address] [place], [address], 4 09:13:30 Medication Orders Stiolto Respimat 2.5 mcg-2.5 mcg/actuati on solution for inhalation 2023 [facility], [address] [place] [address], [address], 4 16:12:10 albuterol sulfate HFA 90 mcg/actuati on aerosol inhaler 2023 [facility], [address] [place] [address], [address], 4 15:58:13 Wixela Inhub 250 mcg-50 mcg/dose powder for inhalation 2023 [facility], [address] [place] [address], [address], 4 15:58:13 Patient TargetsNo targets recorded. Patient [...] um score No observ ation record ed. [email or web address] Not Available 08/06 10:40:02 08/06/20 24 12/05/2019 CT, abdom en, w/o contr ast No observ ation record ed. [email or web address] Not Available 08/06 10:45:45 08/06/2001/29/2023 LDCT, chest , for lung cance r scree kelsey No observ ation record ed. Not Available 08/06 10:44:41 08/06/2005/30/2022 CT, angio gram, lower extre mity, w/wo contr ast No observ ation record ed. [email or web address] Not Available 08/06 10:43:21 08/06/20 24 07/15/2024 LDCT, chest , for lung cance r scree kelsey No observ ation record ed. [email or web address] Not Available 07/22 09:48:56 08/06/2001/29/2023 LDCT, chest , for lung cance r scree kelsey No observ ation record ed. [email or web address] Not Available 08/28 14:50:30 10/24/19 25 10/21/2024 CT, chest , w/o contr ast No observ ation record ed. [email or web address] [facility] [place], [address], 10/27/2024 11:37:06 Result Notes None recorded. Problems Name Problem SNOMED Code Status Onset Date Resolution Date Notes Provider Name and Address Organization Details Recorded Time Chronic obstructive pulmonary disease 84331357 Active 2023 Naomie Gee NP [address], [place], [address], [facility] - [facility] 15:53:24 Multiple nodules of lung 793389023 Active 2023 Naomie Gee NP [address], [place], [address], [place] - [facility] 4 10:40:36 Dyspnea 318500952 Active 2023 Naomie Gee NP [address], [place], [address], [place] - [facility] 4 10:40:43 Obstructive sleep apnea syndrome 16669766 Active 2023 Naomie Gee NP [address], [place], [address], [place] - [facility] 4 10:40:49 Heavy tobacco smoker 1480549978828 03 Active 2023 Naomie Gee NP [address], [place], [address], [place] - [facility] [...] Speci 4 15:38:55 vasectomy completed latasha herring [place] - [facility] 4 15:39:14 testis excision completed latasha herring [place] [facility] 4 15:39:44 procedure on finger completed rashad rios [place] - [facility] 15:40:03 Imaging Results None recorded. Procedure Notes None recorded. Medical Equipment None Reported. Allergies Allergen ID Allergen Name Allergen Category Reaction Reaction Severity Criticality Documentation Date Start Date Code Code System Note Provider Name and Address Organization Details Recorded Time 56374 Product containin g penicilli n (product) medicatio n Not available Not available Not available 08/01/2024 84537 8001 SNOMED latasha herring [facility], [place] - [facility] [...] Available No t Available FreeStyle Noemi 3 [place] USE DIRECTED PER MD OFFICE active Not Available Not Available No t Available Vitals Date Recorded Body height Body mass index (BMI) Body weight Provider Name and Address Organization Details Last Updated DateTime 11/06/2024 175.26 cm 31 kg/m2 59925.4 g ryne stefani [place] [facility] 11/06/2024 14:57:17 Date Recorded Body weight Body mass index (BMI) Body height Oxygen saturation Oxygen saturation in Arterial blood by Pulse oximetry Heart rate Respiratory rate Body temperature Systolic And Diastolic Provider Name and Address Organization Details Last Updated DateTime 4 629892. 69 g 33.1 kg/m2 175.26 cm 97 % 97 % 68 /min 20 /min 97.3 [degF] 148/88 mm[Hg] latasha herring [place] [facility] 15:14:00 Date Recorded Body height Body mass index (BMI) Body weight Oxygen saturation Oxygen saturation in Arterial blood by Pulse oximetry Heart rate Respiratory rate Body temperature Systolic And Diastolic Provider Name and Address Organization Details Last Updated DateTime 175.26 cm 31 kg/m2 00818.4 g 96 % 96 % 79 /min 20 /min 97.1 [degF] 132/82 mm[Hg] latasha herring [place] [facility] 15:50:34 Social History Question Answer Notes LastModified by Organizat ion Details LastModified Time Tobacco Smoking Status Current Every Day Smoker latasha herring [place], [place] - [facility] 08/01/2024 15:35:57 Do You Have An Advance Directive? No Information not available 08/05/2024 Is Your Home Air Conditioned? Yes [email or web address] Information not available 08/05/2024 Where Do You Live? SingleLevelHouse [email or web address] Information not available 08/05/2024 Do You Have A Medical Power Of Material Reclaimer? No [email or web address] Information not available 08/01/2024 What Was The Date Of Your Most Recent Tobacco Screening? 11/06/2024 [email or web address] Information not available 11/06/2024 What Is Your Current Pack Years? 30ormorepackyears [email or web address] Information no t available 08/01/2024 Do You Have Any Pets? Yes 2 Dogs Information not available 08/05/2024 What Is Your Relationship Status? [email or web address] Information not available 08/01/2024 At What Age Did You Start Smoking Tobacco? 14 [email or web address] Information not available 08/05/2024 Are There Any Smokers In Your House? Yes [email or web address] Information not available 08/01/2024 How Much Tobacco Do You Smoke? 2 PPD Information not available 08/01/2024 Has Tobacco Cessation Counseling Been Provided? Yes [email or web address] Information not available 08/05/2024 On What Date Was Tobacco Cessation Counseling Provided? 11/06/2024 [email or web address] Information not available 11/06/2024 How Many Years Have You Smoked Tobacco? 50 [email or web address] Information not available 08/05/2024 Have You Recently Traveled Abroad? No [email or web address] Information not available 08/05/2024 Are You Currently In School? No [email or web address] Information not available 08/05/2024 Sex: Unknown Functional Status Question Answer Note LastModified by Organizat ion Details LastModified Time Do you or have you ever used any other forms of tobacco or nicotine? Yes Information not available 08/05/2024 Do you or have you ever used smokeless tobacco? Current snuff user [email or web address] Information not available 08/05/2024 Are you currently employed? No Disabled [email or web address] Information not available 08/05/2024 Do you or have you ever used e-cigarettes or vape? Never used electronic cigarettes [email or web address] Information not available 08/05/2024 Mental Status None recorded. Family History Relationship Description Onset Age of this Age Resolved Age Notes LastModified by Organization Details LastModified Time Mother Arthritis [email or web address] Not availa ble 08/01/2024 15:34:40 Mother Allergy Not availabl e 08/05/2024 15:48:51 Mother Malignant neoplastic disease [email or web address] Not available 08/05 15:49:04 Mother Chronic obstructive pulmonary disease [email or web address] Not available 08/05 15:49:21 Mother Emphysema [email or web address] Not availa ble 08/05/2024 15:49:31 Mother Restless legs syndrome [email or web address] Not available 08/05 15:49:54 Father Hypertensive disorder [email or web address] Not available 08/01 15:34:49 Father Allergy [email or web address] Not availabl e 08/05/2024 15:48:51 Father Chronic obstructive pulmonary disease [email or web address] Not available 08/05 15:49:21 Father Heart disease [email or web address] Not available 08/05 15:49:44 Sister Chronic obstructive pulmonary disease [email or web address] Not available 08/05 15:49:21 Sister Heart disease [email or web address] Not available 08/05 15:49:44 Medical History Condition Response Diabetes Y Thyroid Disease Y Arthritis Y Sleep Apnea Y High Cholesterol Y Acid Reflux (GERD) Y Cancer Y Hypertension Y Depression Y COPD Y Past Encounters Encounter ID Performer Location Encounter Start Date Encounter Closed Date Diagnosis/Indication Diagnosis SNOMED-CT Code Diagnosis ICD10 Code Diagnosis IMO Codes Diagnosis Note [id number] David Covington [address] [place] [address] [place] [address] 08/05/2024 14:35:42 08/05/2024 16:13:09 Chronic obstructive pulmonary disease 18157117 J44.9 Dyspnea 461980714 R06.00 Heavy tobacco smoker 991 3202634 66403 Z72.0 Multiple n odules of lung 288614427 R91.8 Obstructiv e sleep apnea syndrome 03912555 G47.33 [id number] David Covington DO [address] [place] [address] 09/01/2024 15:44:57 09/01/2024 16:16:28 Chronic obstructive pulmonary disease 66917241 J44.9 Dyspnea 796634864 R06.00 Heavy tobacco smoker 422 6031136 36000 Z72.0 Multiple n odules of lung 307772584 R91.8 Obstructiv e sleep apnea syndrome 99793644 G47.33 [id number] David Covington DO [place] [facility] [address] [facility] [place] [address] 11/06/2024 14:55:14 11/07/2024 15:18:23 Chronic obstructive pulmonary disease 57815012 J44.9 Dyspnea 996047550 R06.00 Heavy tobacco smoker 102 6529231 52121 Z72.0 Multiple n odules of lung 390430855 R91.8 Obstructiv e sleep apnea syndrome 86390898 G47.33 Health Concerns Section Related Observation LastModified by Organization Detai ls LastModified Time None Recorded Concern Status LastModified by Organization Details LastModified Time None Recorded Advance Directives Directive N: Payers Insurance Date Sequence Insurance Name Policy Number Policy Laguerre Covered Member ID Laguerre Member ID Guarantor Name 11/05/2024 1 [employer] (MEDICARE REPLACEMENT/A DVANTAGE - PPO) Noe Silvestre [id number] Noe Silvestre Notes Date Note Type Note [...] Naomie Gee, MARIJA [address] [place] [address], [address], [facility] 08/06/2024 10:42:05 09/01/2024 [...] Gee NP [address], [place], [address], [facility] 09/02/2024 21:15:22 11/06/2024 [...] Gee NP [address], [place], [address], [facility] 11/07/2024 10:19:31
--- OUTSIDE RECORDS SUMMARY | 2025-08-24 14:04 | XMS_ITS | Encounter Summary ---
Author Organization Healthcare Address [address] [place] [address] Care Team Providers Care Cloth Shader Name Role Phone Ministerio Rosas MD Unavailable [phone] Khadijah Dolan APRN Primary Care Provider [phone] Reason for Visit * Reason Comments Med Refill Encounter Details Date Type Department Care Team (Late st Contact Info) Description 07/29/2025 Refill [place] [facility] [address] [place] [address] Zuleyka Escobedo MD [address] [place] [address] Social History Tobacco Use Types [...] Description 12/22/2025 8:40 AM EST Appointment [facility] [address] [place] [address] 12/22/2025 10:30 AM EST Office Visit [place] [facility] [address] [place] [address] Ministerio Rosas MD [address] [address] documented as of this encounter [...] documented as of this encounter Care Teams Cloth Shader Relationship Specialty Start Date End Date Khadijah Dolan APRN [address] [place] [address] PCP - General 05/04/25 Ministerio Rossa MD [address] [facility] [place] [address] Surgeon Urology 09/23/24 documented as of this encounter
--- OUTSIDE RECORDS SUMMARY | 2025-08-24 14:04 | XMS_ITS | Encounter Summary ---
Author Organization [employer] ([place], [place], [place], [place], [place]) Address [address] [place] [address] Care Team Providers Care Event Specialist Name Role Phone Unavailable Primary Care Provider Unavailabl e Encounter Details Date Type Department Care Team (Late st Contact Info) Description 11/04/2020 Transcribed Document [facility] [place] [facility] [place] [address] ProviderFarhan MD [address] [place] [id number] Social History Tobacco Use Types Packs/Day Years [...] - Farhan ProviderMD - 11/04/2020 6:06 PM EVENTS TRAFFIC CONTROLLER [facility] Entered On: 11/04/2020 18:08 EST Performed On: 11/04/2020 18:06 EST by Armida Naidu, Lead Vulcanizing Operator [facility] Provider Status : EST Other Established Provider Name : MANJEET HURLEY Patient Phone Number : [phone] Patient Insurance Type : Medicare Source of [...] at ED : Other Primary Language : Persian [facility] Comment : Patient needs follow up appointment. Called office and patient already has two appointments scheduled with Addie Veliz (2 week staple removal and 4 week post op) Follow Up Needed : Armida Youssef, Lead Vulcanizing Operator - 11/04/2020 18:06 EST Electronically signed by Kailey, [facility] Conversion Harvester Operator Cerner at 02/08/2023 12:17 PM CDT documented in this encounter Plan of Treatment Not on file documented as of this encounter Visit Diagnoses Not on filedocumented in this encounter
--- OUTSIDE RECORDS SUMMARY | 2025-08-24 14:04 | XMS_ITS ---
Author Organization [facility] Address [address] [place] [address] Care Team Providers Care Felt Pad Cutter Name Role Phone Ministerio Rosas MD Unavailable [phone] Khadijah Dolan APRN Primary Care Provider [phone] Active Problems Problem Noted Date Diagnosed Date [...]
--- OUTSIDE RECORDS SUMMARY | 2025-08-24 14:04 | XMS_ITS | Encounter Summary ---
Author Organization [email or web address] ([place], [place], [place], [place], [place]) Address [address] [place] [address] Care Team Providers Care Pharmacology Teacher Name Role Phone Unavailable Primary Care Provider Unavailabl e Encounter Details Date Type Department Care Team (Late st Contact Info) Description 10/29/2020 Transcribed Document [facility] [place] [address] ProviderFarhan MD [address] [place] [id number] Social History Tobacco Use Types Packs/Day Years [...] - Farhan ProviderMD - 10/29/2020 10:34 AM MARKETING REP Pain Assessment Entered On: 10/30/2020 20:02 EST [...] of the form. Electronically signed by Kailey, [facility] Conversion Guide Rail Cleaner Cerner at 02/09/2023 11:58 AM CDT documented in this encounter Plan of Treatment Not on file documented as of this encounter Visit Diagnoses Not on filedocumented in this encounter
--- OUTSIDE RECORDS SUMMARY | 2025-08-24 14:04 | XMS_ITS | Encounter Summary ---
Author Organization Healthcare Address [address] [place] [address] Care Team Providers Care Reinsurance Accountant Name Role Phone Nadja Lara MD Primary Care Provider [phone] Ministerio Rosas MD Unavailable [phone] Khadijah Dolan APRN Primary Care Provider [phone] Encounter Details Date Type Department Care Team (Late st Contact Info) Description 05/02/2023 Lab Requisition [facility] [address] [place] [address] Right testicular pain Social History Tobacco Use [...] Info) Description 12/22/2025 8:40 AM EST Appointment [facility] 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
--- OUTSIDE RECORDS SUMMARY | 2025-08-24 14:04 | XMS_ITS | Encounter Summary ---
Author Organization [employer] ([place], [place], [place], [place], [place]) Address [address] [place] [address] Care Team Providers Care Terminal Worker Name Role Phone Unavailable Primary Care Provider Unavailabl e Encounter Details Date Type Department Care Team (Late st Contact Info) Description 11/02/2020 Transcribed Document [facility] [place] [facility] [place] [address] ProviderFarhan MD [address] [place] [place] [id number] Social History Tobacco Use Types Packs/Day Years [...] - Historical ProviderMD - 11/02/2020 6:38 AM BLACKTOP PAVER OPERATOR [facility] Authorization Entered On: 11/02/2020 6:38 EST Performed On: 11/02/2020 6:38 EST by Diana Garcia, Dynamometer Repairer Primary Insurance Authorization Authorization and Policy Numbers : Insurance 1 Health Plan: [employer] CHOICE PPO Policy Number: [id number] Authorization Number: Insurance Primary Name : [employer] [id number] Authorization Status-Primary : Notification only Auth/Referral Contact Name-Primary : Alfredo Casas Reference Number-Primary : [id number] Authorization Number-Primary : [id number] Number of Days Authorized-Primary : 5 Day(s) Authorized Service Begin Date-Primary : 10/29/2020 EST Authorized Service End Date-Primary : 11/03/2020 EST Authorization Comments-Primary : Authorized per email from Alfredo Yohana, RN. Historical Authorization Comments-Primary : Comment 1: inpt admission approved by [employer] choice per Availity. (TAQUERIA AGRAWAL Mkt Director Of Clinical Education-Utilization Mgt 11/01/2020 15:33) Comment 2: per availity auth pended (Ca Amaya, Rn-Utilization Review 10/30/2020 10:50) Comment 3: call to [facility]/dr slater office to obtain preauth #. She states no auth # yet. She will call [employer] to check on it and call me back (ROLF LUDWIG, RN-Utilization Review 10/28/2020 13:52) Comment 4: Pt is david for INPT Lumbar Fusion Posterior 3 Level on Sunday10-29-20 [employer]: No auth notes in [facility] or availity as of yet (DERICK SHIPMAN, Improvement Advisor 10/28/2020 12:39) Diana Garcia, Dynamometer Repairer - 11/02/2020 6:38 EST Electronically signed by Kailey [facility] Conversion Fire Dispatcher Cerner at 02/08/2023 12:38 PM CDT documented in this encounter Plan of Treatment Not on file documented as of this encounter Visit Diagnoses Not on filedocumented in this encounter
--- OUTSIDE RECORDS SUMMARY | 2025-08-24 14:04 | XMS_ITS | Encounter Summary ---
Author Organization [employer] ([place], [place], [place], [place], [place]) Address [address] [place] [address] Care Team Providers Care Conditioning Machine Operator Name Role Phone Unavailable Primary Care Provider Unavailabl e Encounter Details Date Type Department Care Team (Late st Contact Info) Description 11/03/2020 Transcribed Document [facility] [place] Family [place] [facility] [place] [address] ProviderFarhan MD [address] [place] [address] Social History Tobacco Use Types [...] - Historical ProviderMD - 11/03/2020 10:02 AM PREPARED FOODS SUPERVISOR Patient: FRANSISCO CRAVEN Age: 60 Years Sex: Male : 1960 Admit Date 10/29/2020 12:20 Discharge Date 10/31/2020 15:52 Primary Care Provider MANJEET HURLEY, MARIJA-FAM Discharge Diagnosis Lumbar stenosis 10/31/2020 M48.061 ICD-10-CM [...] 100 mg intravenous injection 1 Infusion, IntraVENous, U3Ibizb Jardiance 25 mg oral tablet 25 mg = 1 Tab, Oral, QAM levothyroxine 200 mcg, Oral, Daily lisinopril 40 mg, Oral, Daily loratadine 10 mg oral tablet 10 mg = 1 Tab, Oral, Daily Lyrica 225 mg oral capsule 225 mg = 1 Cap, Oral, BID metFORMIN 1,000 mg, Oral, BID [place] 10 mg-325 mg oral tablet 1 Tab, [...]
--- OUTSIDE RECORDS SUMMARY | 2025-08-24 14:04 | XMS_ITS | Encounter Summary ---
Author Organization [employer] ([place], [place], [place], [place], [place]) Address [address] [place] [address] Care Team Providers Care Media Production Support Manager Name Role Phone Unavailable Primary Care Provider Unavailabl e Encounter Details Date Type Department Care Team (Late st Contact Info) Description 10/26/2020 Transcribed Document [facility] [place] [address] ProviderFarhan MD [address] [id number] Social History Tobacco Use Types Packs/Day Years [...] - Historical ProviderMD - 10/26/2020 9:22 AM RETIREMENT PLAN COUNSELOR Spiritual Care Assessment Entered On: 10/29/2020 7:43 EST Performed On: 10/29/2020 7:27 EST by SADIE ALEX General Information Initial Visit : Yes Referred by : Patient Referral Reason Comment : Pre-surgery visit Ministry Provided to : Patient Shinto Preference : Rastafari SADIE ALEX P - 10/29/2020 7:43 EST Spiritual Assessment Spiritual Assessment Comment/Summary Points : Provided pre-surgery visit and prayer. Spirital Assessment Comment/Summary Report : SPIRITUAL ASSESSMENT COMMENT/SUMMARY No qualifying data available. SADIE ALEX - 10/29/2020 7:43 EST Interventions Emotional Support : Empathic/Engaged listening Spiritual and Shinto : Prayer shared, Spiritual/Shinto support provided SADIE ALEX - 10/29/2020 7:43 EST documented in this encounter Plan of Treatment Not on file documented as of this encounter Visit Diagnoses Not on filedocumented in this encounter
--- OUTSIDE RECORDS SUMMARY | 2025-08-24 14:04 | XMS_ITS | Encounter Summary ---
Author Organization [employer] ([place], [place], [place], [place], [place]) Address [address] [place] [address] Care Team Providers Care Information Technology Director Name Role Phone Unavailable Primary Care Provider Unavailabl e Encounter Details Date Type Department Care Team (Late st Contact Info) Description 11/04/2020 Transcribed Document [facility] [place] Family Medicine [facility] [place] [address] ProviderFarhan MD [address] [place] [address] Social History Tobacco Use Types [...] - Farhan ProviderMD - 11/04/2020 6:06 PM FORENSIC DNA ANALYST Patient Education Materials Follows: Spinal Fusion, Adult, Care After This sheet gives you information about how to care for yourself after your procedure. Your doctor may also give you more specific instructions. If you have problems or questions, contact your doctor. Follow these instructions at home: Medicines ??? Take ixwr-wjn-afztcuo and prescription medicines only as told by [...] cannot use soap and water, use hand adjunct professor of voice. ? Change your bandage as told by [...] your pee (urine) pale yellow. ? Take axyd-jhv-doqbsqw or prescription medicines. ? Eat foods that [...] 02/01/2012 Document Revised: 01/29/2020 Document Reviewed: 01/22/2018 [employer] Patient Education ? 2019 [employer] documented in this encounter Plan of Treatment Not on file documented as of this encounter Visit Diagnoses Not on filedocumented in this encounter
--- OUTSIDE RECORDS SUMMARY | 2025-08-24 14:04 | XMS_ITS | Encounter Summary ---
Author Organization [employer] ([place], [place], [place], [place], [place]) Address [address] [place] [address] Care Team Providers Care Outreach Specialist Name Role Phone Unavailable Primary Care Provider Unavailabl e Encounter Details Date Type Department Care Team (Late st Contact Info) Description 10/28/2020 Transcribed Document [facility] [place] [address] [place] [address] ProviderFarhan MD [address] [place] [address] Social History Tobacco Use Types [...] - Historical ProviderMD - 10/28/2020 12:39 PM SQUARING MACHINE OPERATOR UM Authorization Entered On: 10/28/2020 12:40 EST Performed On: 10/28/2020 12:39 EST by DERICK SHIPMAN, Hockey Player Primary Insurance Authorization Authorization and Policy Numbers : Insurance 1 Health Plan: [employer] CHOICE PPO Policy Number: [id number] Authorization Number: Insurance Primary Name : [employer] Choice [id number] Auth/Referral Contact Name-Primary : Alfredo Casas Authorization [...] : No Authorization Comments Found DERICK SHIPMAN, Hockey Player - 10/28/2020 12:39 EST Electronically signed by Kailey, [facility] Conversion Tool Crib Supervisor Cerner at 02/08/2023 12:46 PM CDT documented in this encounter Plan of Treatment Not on file documented as of this encounter Visit Diagnoses Not on filedocumented in this encounter
--- OUTSIDE RECORDS SUMMARY | 2025-08-24 14:04 | XMS_ITS | Data Portability ---
Author Organization [facility] [place] Address [address] [place] [address] Assessment No assessment recorded. Plan of Treatment Reminders Order Date Submit Date Provider Last Modified By Organization Details Last Modified Time Details Appointments None recorded. Lab urinalysis , dipstick 2022 023 [facility], [address] [place] [address], [address], 3 15:53:11 urinalysis , dipstick [address] U[facility], [address] [place] [address], [address], 3 16:27:34 urinalysis , dipstick [address] Urology, [address] [place] [address], [address], 2 19:09:17 Referral None recorded. Procedures bladder scan (PROC) 2022 023 [facility], [address] [place] [address], [address], 15:53:11 Surgeries None recorded. Imaging None recorded. Medication Orders None recorded. Patient TargetsNo targets recorded. Patient InstructionsNo instructions recorded. Reason for Referral None Reported. Results Created Date Observation Date Name Description Value Unit Range Abnormal Flag Note LastModifiedBy Organization Detail LastModifiedTime 09/05/20 22 09/05/2022 urina lysis , dipst ick Leukocytes (reference range) negati ve Not Available [facility] [address] [place] [address], [address], 09/05/2022 11:12:11 09/05/20 22 09/05/2022 urina lysis , dipst ick Nitrite (reference range:) negati ve Not Available [facility] [address] [place] [address], [address], 09/05/2022 11:12:11 09/05/20 22 09/05/2022 urina lysis , dipst ick Urobilinogen (reference range) 0.2 Not Available [address], [address], 09/05/2022 11:12:11 09/05/20 22 09/05/2022 urina lysis , dipst ick Protein (reference range) negati ve Not Available [facility] [address] [place] [address], [address], 09/05/2022 11:12:11 09/05/20 22 09/05/2022 urina lysis , dipst ick pH (reference range 5-8.5) 6.0 Not Available [facility] [address] [place] [address], [address], 09/05/2022 11:12:11 09/05/20 22 09/05/2022 urina lysis , dipst ick Blood (reference range:) large Not Available [facility] [address] [place] [address], [address], 09/05/2022 11:12:11 09/05/20 22 09/05/2022 urina lysis , dipst ick Specific [place] (reference range) 1.010 Not Available [facility] [address] [place] [address], [address], 09/05/2022 11:12:11 09/05/20 22 09/05/2022 urina lysis , dipst ick Ketone (reference range) negati ve Not Available [facility] [address] [place] [address], [address], 09/05/2022 11:12:11 09/05/20 22 09/05/2022 urina lysis , dipst ick Bilirubin (reference range) negati ve Not Available [facility] [address] [place] [address], [address], 09/05/2022 11:12:11 09/05/20 22 09/05/2022 urina lysis , dipst ick Glucose (reference range) 1000 Not Available [facility] [address] [place] [address], [address], 09/05/2022 11:12:11 10/24/19 23 10/24/2022 BASIC METAB OLIC PANEL sodium 139 mmol/ L 137-14 7 Not Available [facility] [address] [place] [address] [place], [address], 10/24/2022 15:15:37 10/24/19 23 10/24/2022 BASIC METAB OLIC PANEL potassium 4.1 mmol/ L 3.5-5. 1 Not Available [facility] ([facility]) [address] [place] [address] [place], [address], 10/24/2022 15:15:37 10/24/19 23 10/24/2022 BASIC METAB OLIC PANEL chloride 102 mmol/ L 98-110 Not Available [facility] ([facility]) [address] [place] [address] [place], [address], 10/24/2022 15:15:37 10/24/19 23 10/24/2022 BASIC METAB OLIC PANEL carbon dioxide 20 mmol/ L 21-30 low Not Available [facility] ([facility]) [address] [place] [address] [place], [address], 10/24/2022 15:15:37 10/24/19 23 10/24/2022 BASIC METAB OLIC PANEL anion gap 17 mmol/ L 6-14 high Not Available [facility] ([facility]) [address] [facility] [place], [address], 10/24/2022 15:15:37 10/24/19 23 10/24/2022 BASIC METAB OLIC PANEL glucose 236 mg/dL 70-115 high Not Available [facility] ([facility]) [address] [place] [address] [place], [address], 10/24/2022 15:15:37 10/24/19 23 10/24/2022 BASIC METAB OLIC PANEL BUN 28 mg/dL 9-20 high Not Available [facility] ([facility]) [address] [place] [address] [place], [address], 10/24/2022 15:15:37 10/24/19 23 10/24/2022 BASIC METAB OLIC PANEL creatinine 1.1 mg/dL 0.5-1. 5 Not Available [facility]) [address] [place] [address] [place], [address], 10/24/2022 15:15:37 10/24/19 23 10/24/2022 BASIC METAB OLIC PANEL BUN/creatini ne ratio 25 ratio 10-20 high Not Available [facility] ([facility]) [address] [place] [address] [place], [address], 10/24/2022 15:15:37 10/24/19 23 10/24/2022 BASIC METAB OLIC PANEL glom filtration rate 73 mL/mi n >60- Not Available [facility] ([facility]Op [facility]) [address] [place] [address] [place], [address], 10/24/2022 15:15:37 10/24/19 23 10/24/2022 BASIC METAB OLIC PANEL osmolality (calculated) 302 mosmo l/kg 275-30 1 high OSMOL ALITY IS A CALCU LATIO N UTILI ZING THE SERUM /PLAS MA SODIU M, GLUCO SE AND UREA NITRO GEN (BUN) LEVEL S. FOR THE MOST ACCUR ATE RESUL T A MEASU RED SERUM OSMOL ALITY IS SUGOCTAVIANO STED. Not Available [facility] ([facility]) [address] [place] [address] [place], [address], 10/24/2022 15:15:37 10/24/1910/24/2022 BASIC METAB OLIC PANEL calcium 8.9 mg/dL 8.5-10 .8 Not Available [facility] ([facility]) [address] [place] [address] [place], [address], 10/24/2022 15:15:37 10/24/1910/24/2022 BASIC METAB OLIC PANEL note Unles s other jeronimo noted testi ng [facility] [address] [place] [address] Mike dutton MD Not Available [facility] ([facility]) [address] [place] [address] [place], [address], 10/24/2022 15:15:37 11/13/19 23 11/13/2022 urina lysis , dipst ick Leukocytes (reference range) negati ve Not Available [facility] [address] [place] [address], [address], 11/13/2022 14:31:14 11/13/1911/13/2022 urina lysis , dipst ick Nitrite (reference range:) negati ve Not Available [facility] [address] [place] [address], [address], 11/13/2022 14:31:14 11/13/1911/13/2022 urina lysis , dipst ick Urobilinogen (reference range) 1 Not Available [facility] [address] [place] [address], [address], 11/13/2022 14:31:14 11/13/19 23 11/13/2022 urina lysis , dipst ick Protein (reference range) negati ve Not Available [address], [address], 11/13/2022 14:31:14 11/13/1911/13/2022 urina lysis , dipst ick pH (reference range 5-8.5) 6.0 Not Available [address], [address], 11/13/2022 14:31:14 11/13/1911/13/2022 urina lysis , dipst ick Blood (reference range:) large Not Available [address], [address], 11/13/2022 14:31:14 11/13/19 23 11/13/2022 urina lysis , dipst ick Specific [place] (reference range) 1.010 Not Available [address], [address], 11/13/2022 14:31:14 11/13/19 23 11/13/2022 urina lysis , dipst ick Ketone (reference range) negati ve Not Available [address], [address], 11/13/2022 14:31:14 11/13/1911/13/2022 urina lysis , dipst ick Bilirubin (reference range) negati ve Not Available [address], [address], 11/13/2022 14:31:14 11/13/1911/13/2022 urina lysis , dipst ick Glucose (reference range) 1000 Not Available [address], [address], 11/13/2022 14:31:14 11/30/19 23 11/30/2022 urina lysis , dipst ick Leukocytes (reference range) negati ve Not Available [address], [address], 11/30/2022 09:55:20 11/30/19 23 11/30/2022 urina lysis , dipst ick Nitrite (reference range:) negati ve Not Available [address], [address], 11/30/2022 09:55:20 11/30/1911/30/2022 urina lysis , dipst ick Urobilinogen (reference range) 0.2 Not Available [address], [address], 11/30/2022 09:55:20 11/30/19 23 11/30/2022 urina lysis , dipst ick Protein (reference range) 30 Not Available [address], [address], 11/30/2022 09:55:20 11/30/1911/30/2022 urina lysis , dipst ick pH (reference range 5-8.5) 6.0 Not Available [address], [address], 11/30/2022 09:55:20 11/30/19 23 11/30/2022 urina lysis , dipst ick Blood (reference range:) large Not Available [address], [address], 11/30/2022 09:55:20 11/30/19 23 11/30/2022 urina lysis , dipst ick Specific [place] (reference range) 1.010 Not Available [address], [address], 11/30/2022 09:55:20 11/30/19 23 11/30/2022 urina lysis , dipst ick Ketone (reference range) negati ve Not Available [facility] [address] [place] [address], [address], 11/30/2022 09:55:20 11/30/19 23 11/30/2022 urina lysis , dipst ick Bilirubin (reference range) negati ve Not Available [address], [address], 11/30/2022 09:55:20 11/30/19 23 11/30/2022 urina lysis , dipst ick Glucose (reference range) 1000 Not Available [address], [address], 11/30/2022 09:55:20 11/30/19 23 11/30/2022 bladd er scan (PROC ) Calculated Residual Urine: 16ml Not Available [address], [address], 11/30/2022 09:55:23 10/28/19 23 10/28/2022 elect angeles hickey am No observ ation record ed. [email or web address] [facility] [address] [place] [address], [address], 10/30/2022 14:12:08 Result Notes None recorded. Procedures Surgical History Date Name Laterality Status Provider Name and Address Organization Details Recorded Time 3 Procedure Note completed Iain Eckert Jr, MD [address] [facility], [address], [place], [address], [facility] & [place] 12/28/2022 17:17:59 7 Appendectomy completed Genet Duncan [facility] & [place] 09/05/2022 10:50:28 Imaging Results None recorded. Procedure Notes None recorded. Medical Equipment None Reported. Allergies Allergen ID Allergen Name Allergen Category Reaction Reaction Severity Criticality Documentation Date Start Date Code Code System Note Provider Name and Address Organization Details Recorded Time 30209 Product containin g penicilli n (product) medicatio n Not available Not available Not available 09/05/2022 69967 8001 SNOMED Genet Duncan [facility], [place] - [facility] & [place] 2 10:50:07 Medications Name Sig [...] Updated DateTime 11/13/2022 175.26 cm 38.4 kg/m2 647285.02 g 97.9 [degF] Genet HARTMAN [facility] & [place] 11/13/2022 14:07:16 Date Recorded Body height Body mass index (BMI) Body weight Body temperature Provider Name and Address Organization Details Last Updated DateTime 11/30/2022 175.26 cm 38.4 kg/m2 956398.02 g 97.9 [degF] [facility] [place] 11/30/2022 08:54:14 Date Recorded Body height Body mass index (BMI) Body weight Body temperature Provider Name and Address Organization Details Last Updated DateTime 12/28/2022 175.26 cm 38.4 kg/m2 624173.02 g 97.9 [degF] [facility] [place] 12/28/2022 15:48:20 Date Recorded Body height Body mass index (BMI) Body weight Body temperature Provider Name and Address Organization Details Last Updated DateTime 09/05/2022 175.26 cm 38.4 kg/m2 525746.02 g 97.9 [degF] Genet Gramajo [facility] & [place] 09/05/2022 10:49:59 Social History Question Answer Notes LastModified by [email or web address] Details LastModified Time Tobacco Smoking Status Current Every Day Smoker Genet figueroa TOMASZ Gramajo [facility] & [place] 09/05/2022 10:50:23 Do You Have An Advance Directive? No [email or web address] Information not available 09/05/2022 Are You Blind Or Do You Have Difficulty Seeing? No [email or web address] Information not available 09/05/2022 What Was The Date Of Your Most Recent Tobacco Screening? 09/04/2022 [email or web address] Information not available 09/05/2022 How Much Tobacco Do You Smoke? 2 PPD [email or web address] Information not available 09/05/2022 How Many Years Have You Smoked Tobacco? 44 Years [email or web address] Information not available 09/05/2022 Sex: Unknown Functional Status Question Answer Note LastModified by [email or web address] Details LastModified Time Do you use any illicit or recreational drugs? No [email or web address] Information not available 09/05/2022 What is your level of alcohol consumption? None [email or web address] Information not available 09/05/2022 Do you or have you ever used smokeless tobacco? [id number] Information n ot available 09/05/2022 What is your exercise level? None [email or web address] Information not available 09/05/2022 Mental Status Question Answer Note LastModified by Organization D etails LastModified Time Do you feel stressed (tense, restless, nervous, or anxious, or unable to sleep at night)? [id number] [email or web address] Information not available 09/05/2022 Family History Relationship [...] Y High Cholesterol Y Rheumatoid Arthritis Y Obstructive Sleep Apnea Y Hypertension Y Past Encounters Encounter ID Performer Location Encounter Start Date Encounter Closed Date Diagnosis/Indication Diagnosis SNOMED-CT Code Diagnosis ICD10 Code Diagnosis IMO Codes Diagnosis Note [id number] Iain Eckert Jr, MD [facility] [address] [place], [place] [address] [employer] Search [id number] 09/05/2022 10:16:34 09/05/2022 11:20:47 Hydrocele of testis 70840206 N43.3 patient with history of right-side d [...] call back a desired date of surgery. [id number] Iain Eckert Jr, MD [facility] [address] [place] [address] [employer] Search [id number] 11/30/2022 08:49:28 11/30/2022 09:44:35 Overactive urinary bladder 546967818 N32.81 Patient with a daytime frequency and urgency and nocturia 2-4 times. His risk factors are aging, obesity and drinking significan t amount of caffeine per day. We discussed caffeine cessation and patient placed on a course of Gemtesa. Will see him back in 1 month follow-up. His bladder scan shows only 11 cc residual. Adult hydrocele 57977241 11 9105 N43.3 patient with history of [...] possible fluid aspiration if no improvemen t. [id number] Iain Eckert Jr, MD [facility] [place] [address] 11/13/2022 13:58:02 11/13/2022 14:26:43 Adult hydrocele [id number] 9105 N43.3 Patient status post hydrocele repair [...] and elevation and heat. Microscopic hematuria 19 4971028 R31.29 patient with microscopi c hematuria on his previous visit and again today. We discussed further workup with CT and cystoscopy . We will discuss further at his follow-up In 2 weeks. Lower urin diya tract symptoms 515027899 R39.9 patient with frequency and nocturia. We discussed further workup on his return with bladder scan. He will continue the tamsulosin for now. [id number] Iain Eckert Jr, MD [facility] TOMASZ WARD [id number] 12/28/2022 15:34:36 12/28/2022 16:46:50 Adult hydrocele [id number] 9105 N43.3 patient with history of right-side [...] and continue scrotal support. Overactive urinary bladder 224847137 N32.81 Patient with a daytime frequency and [...] Name 05/10/2024 1 [employer] (PPO) Noe Silvestre [id number] Noe Silvestre 05/10/2024 [employer] (MEDICARE REPLACEMENT/A DVANTAGE - PPO) Noe Silvestre [id number] Noe Silvestre Notes Date Note Type Note Provider Name and Address Organization Details Recorded Time 09/05/2022 text/html patient is a 62-year-old white male with a history of right-sided hydrocele. States that the hydroceles becoming more bothersome and at is painful when he rolls over at night and crosses his legs. He has previously been seen since at [facility] for the same problem and he elected watch and wait with symptoms are getting worse. Saw Dr. Merida for a small right-sided inguinal hernia and intervention was not recommended. Patient's discomfort more from the right scrotal region. Past history is significant COPD and diabetes. Iain Eckert Jr, MD [address] [place] [address], [address], [place], [address], [facility] 09/05/2022 11:48:58 11/13/2022 text/html Patient is a [...] he would like. Iain Eckert Jr, MD [address] [place] [address], [address], [place], [address], [facility] & [place] 11/13/2022 16:15:54 11/30/2022 [...] day. Iain Eckert Jr, MD [address] [facility], [address], [place], [address], [facility] & [place] 11/30/2022 10:51:33 12/28/2022 text/html ROS [...] yet. Iain Eckert Jr, MD [address] [facility], [address], [place], [address], [facility] & [place] 12/28/2022 17:23:19
--- OUTSIDE RECORDS SUMMARY | 2025-08-24 14:04 | XMS_ITS | Clinical Summary ---
Author Organization [employer] ([place], [place], [place], [place], [place]) Address [address] [place] [address] Care Team Providers Care [employer] Name Role Phone Unavailable Primary Care Provider [...] Date Keyon rded Speak language other than Nigerien at home Not on file 10/30/2023 Want [...] of 2) 2012 COVID-19 VACCINE (3 - 2024- season) 2025, 01/17/2021 Influenza Vaccine (#1) 2025 DTAP/TDAP/TD VACCINES (2 - Td or Tdap) 05/19/2026 Respiratory Syncytial Virus (RSV) Adult or (1 - 1-dose 75+ series) 2037
--- OUTSIDE RECORDS SUMMARY | 2025-08-24 14:04 | XMS_ITS | Data Portability ---
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 Plan of Treatment Reminders Order Date Submit Date Provider Last Modified By Organization Details Last Modified Time Details Appointments Diabetic F/U 2024 08:00A M Khadijah Dolan, DAVID Not available Not available Not available Lab HbA1c (hemoglob in A1c), blood 2024 025 [facility], [address], [address], [place], [address], 05/29/2025 14:08:00 CMP, serum or plasma 2024 025 [facility], [address], [place], [address], 05/29/2025 14:07:58 CBC w/ auto diff 2024 025 [facility], [address], [place], [address], 05/29/2025 14:07:57 albumin/c reatinine , mass ratio, urine 2024 025 MILA [facility], [address], [address], [place], [address], 05/29/2025 14:07:59 lipid panel, serum 2024 025 [facility], [address], [address], [place], [address], 05/29/2025 14:07:58 testoster one, free + total, serum 2024 025 [facility], [address], [address], [place], [address], 05/29/2025 14:07:59 vitamin B12, serum 2024 025 [facility], [address], [address], [place], [address], 05/29/2025 14:08:01 magnesium , serum or plasma 2024 025 [facility], [address], [address], [place], [address], 05/29/2025 14:08:01 TSH + free T4, serum 2024 025 [facility], [address], [address], [place], [address], 05/29/2025 14:07:56 HbA1c (hemoglob in A1c), blood 2024 025 [facility], [address] [place] [address], [id number], 02/24/2025 08:51:27 CBC w/ auto diff 2024 025 [facility], [address], [address], [place], [address], 11/26/2024 11:07:46 cobalamin and folate panel, serum 2024 025 [facility], [address], [address], [place], [address], 11/26/2024 11:07:46 vitamin D, 25-hydrox y, total, serum 2024 025 [facility], [address], [address], [place], [address], 11/26/2024 11:07:47 TSH + free T4, serum 2024 025 [facility], [address], [address], [place], [address], 11/26/2024 11:07:45 CBC w/ auto diff 2023 024 [facility], [address], [address], [place], [address], 09/23/2024 19:06:29 HbA1c (hemoglob in A1c), blood 2023 024 [facility], [address], [address], [place], [address], 09/23/2024 19:06:30 CMP, serum or plasma 2023 024 [facility], [address], [address], [place], [address], 09/23/2024 19:06:29 C reactive protein, QN, serum or plasma 2023 024 [facility], [address], [address], [place], [address], 09/23/2024 19:06:31 ESR (erythroc yte sedimenta tion rate), blood 2023 024 [facility], [address], [address], [place], [address], 09/23/2024 19:06:30 testoster one, free + total, serum 2023 024 [facility], [address], [address], [place], [address], 09/23/2024 19:06:30 Referral podiatris t referral 2023 024 MILA Malloy DPM, [address] [place], [address], 09/29/2024 11:18:09 cardiolog ist referral 2023 024 MILA Butts MD, [address] [place] [address] [address], [place], [address], 08/26/2024 13:02:43 Procedures None recorded. Surgeries None recorded. Imaging electroca rdiogram 2024 025 [email or web address] [facility], [address] [place], [address], 05/25/2025 09:10:15 Medication Orders metformin ER 500 mg tablet,ex tended release 24 hr 2024 025 [facility], [facility] [address], [place], [address], 05/25/2025 08:46:25 doxycycli ne hyclate 100 mg capsule 2024 025 [facility], [facility] [address], [place], [address], 06/11/2025 05:01:38 mupirocin 2 % topical ointment 2024 025 [facility], [facility] [address], [place], [address], 05/25/2025 08:47:17 levothyro xine 200 mcg tablet 2024 025 [facility], [address] [place] [address], [address], 02/24/2025 08:51:28 Lyrica 75 mg capsule [address], [address], 02/24/2025 08:19:55 clindamyc in HCl 300 mg capsule [address], [address], 11/25/2024 16:38:32 cephalexi n 500 mg capsule [address], [address], 11/25/2024 16:38:32 famotidin e 20 mg tablet [address], [address], 09/22/2024 13:23:28 atorvasta tin 10 mg tablet [address], [address], 09/22/2024 13:23:29 ergocalci ferol (vitamin D2) 1,250 mcg (50,000 unit) capsule [address], [address], 09/22/2024 13:23:29 Lyrica 75 mg capsule [address], [address], 02/24/2025 08:13:05 Lyrica 75 mg capsule 2023 024 [address] [place], [address], 02/24/2025 08:13:05 Patient TargetsNo targets recorded. 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 Referral for Hy pertensive disorder Referring Physician: Khadijah Dolan [facility], Encounter Date: 08/25/2024 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 Referral for Foot ulcer due to type 2 diabetes mellitus Referring Physician: Khadijah Dolan [facility], Encounter Date: 09/22/2024 Results Created Date Observation Date Name Description Value Unit Range Abnormal Flag Note LastModifiedBy Organization Detail LastModifiedTime 05/06/2005/06/2025 COLOG UARD cologuard result Cancel led - Order d not applic able Not Available [facility] [address], [place], [address], 05/06/2025 05:18:23 09/22/2009/23/2024 CBC WITH DIFFE RENTI AL/PL ATELE T WBC 8.8 x10e3 /uL 3.4-10 .8 normal Not Available [facility] ([facility]) [address] [place], [address], 09/23/2024 19:06:29 09/22/20 24 09/23/2024 CBC WITH DIFFE RENTI AL/PL ATELE T RBC 4.39 x10e6 /uL 4.14-5 .80 normal Not Available [facility] ([facility]) [address] [place], [address], 09/23/2024 19:06:29 09/22/20 24 09/23/2024 CBC WITH DIFFE RENTI AL/PL ATELE T hemoglobin 12.2 g/dL 13.0-1 7.7 below low normal Not Available [facility] ([facility]) [address] [facility], [place], [address], 09/23/2024 19:06:29 09/22/20 24 09/23/2024 CBC WITH DIFFE RENTI AL/PL ATELE T hematocrit 38.1 % 37.5-5 1.0 normal Not Available [facility] ([facility]) [address] [place], [address], 09/23/2024 19:06:29 09/22/20 24 09/23/2024 CBC WITH DIFFE RENTI AL/PL ATELE T MCV 87 fL 79-97 normal Not Available [facility] ([facility]) [address] [place], [address], 09/23/2024 19:06:29 09/22/20 24 09/23/2024 CBC WITH DIFFE RENTI AL/PL ATELE T MCH 27.8 pg 26.6-3 3.0 normal Not Available [facility] ([facility]) [address] [place], [address], 09/23/2024 19:06:29 09/22/20 24 09/23/2024 CBC WITH DIFFE RENTI AL/PL ATELE T MCHC 32.0 g/dL 31.5-3 5.7 normal Not Available [facility] ([facility]) [address] [place], [address], 09/23/2024 19:06:29 09/22/20 24 09/23/2024 CBC WITH DIFFE RENTI AL/PL ATELE T RDW 14.1 % 11.6-1 5.4 Not Available [facility] ([facility]) [address] [place], [address], 09/23/2024 19:06:29 09/22/20 24 09/23/2024 CBC WITH DIFFE RENTI AL/PL ATELE T platelets 244 x10e3 /uL 150-45 0 normal Not Available [facility] ([facility]) [address] [facility], [place], [address], 09/23/2024 19:06:29 09/22/20 24 09/23/2024 CBC WITH DIFFE RENTI AL/PL ATELE T neutrophils 70 % not estab. normal Not Available [facility] ([facility]) [address] [facility], [place], [address], 09/23/2024 19:06:29 09/22/20 24 09/23/2024 CBC WITH DIFFE RENTI AL/PL ATELE T lymphs 20 % not estab. normal Not Available [facility] ([facility]) [address] [facility], [place], [address], 09/23/2024 19:06:29 09/22/20 24 09/23/2024 CBC WITH DIFFE RENTI AL/PL ATELE T monocytes 7 % not estab. normal Not Available [facility] ([facility]) [address] [facility], [place], [address], 09/23/2024 19:06:29 09/22/20 24 09/23/2024 CBC WITH DIFFE RENTI AL/PL ATELE T eos 2 % not estab. normal Not Available [facility] ([facility]) [address] [facility], [place], [address], 09/23/2024 19:06:29 09/22/20 24 09/23/2024 CBC WITH DIFFE RENTI AL/PL ATELE T basos 1 % not estab. normal Not Available [facility] ([facility]) [address] [facility], [place], [address], 09/23/2024 19:06:29 09/22/20 24 09/23/2024 CBC WITH DIFFE RENTI AL/PL ATELE T immature cells LIFTER/DRIVER Not Available [facility] ([facility]) [address] [place], [address], 09/23/2024 19:06:29 09/22/20 24 09/23/2024 CBC WITH DIFFE RENTI AL/PL ATELE T neutrophils (absolute) 6.2 x10e3 /uL 1.4-7. 0 normal Not Available [facility] ([facility]) [address] [place], [address], 09/23/2024 19:06:29 09/22/20 24 09/23/2024 CBC WITH DIFFE RENTI AL/PL ATELE T lymphs (absolute) 1.7 x10e3 /uL 0.7-3. 1 normal Not Available [facility] ([facility]) [address] [place], [address], 09/23/2024 19:06:29 09/22/20 24 09/23/2024 CBC WITH DIFFE RENTI AL/PL ATELE T monocytes(ab solute) 0.6 x10e3 /uL 0.1-0. 9 normal Not Available [facility] ([facility]) [address] [place], [address], 09/23/2024 19:06:29 09/22/20 24 09/23/2024 CBC WITH DIFFE RENTI AL/PL ATELE T eos (absolute) 0.2 x10e3 /uL 0.0-0. 4 normal Not Available [facility] ([facility]) [address] [place], [address], 09/23/2024 19:06:29 09/22/20 24 09/23/2024 CBC WITH DIFFE RENTI AL/PL ATELE T baso (absolute) 0.0 x10e3 /uL 0.0-0. 2 normal Not Available [facility] ([facility]) [address] [place], [address], 09/23/2024 19:06:29 09/22/20 24 09/23/2024 CBC WITH DIFFE RENTI AL/PL ATELE T immature granulocytes 0 % not estab. Not Available [facility] ([facility]) [address] [facility], [place], [address], 09/23/2024 19:06:29 09/22/20 24 09/23/2024 CBC WITH DIFFE RENTI AL/PL ATELE T immature grans (abs) 0.0 x10e3 /uL 0.0-0. 1 Not Available [facility] ([facility]) [address] [facility], [place], [address], 09/23/2024 19:06:29 09/22/20 24 09/23/2024 CBC WITH DIFFE RENTI AL/PL ATELE T NRBC LIFTER/DRIVER Not Available [facility] ([facility]) [address] [facility], [place], [address], 09/23/2024 19:06:29 09/22/20 24 09/23/2024 CBC WITH DIFFE RENTI AL/PL ATELE T hematology comments: LIFTER/DRIVER Not Available [facility] ([facility]) [address] [facility], [place], [address], 09/23/2024 19:06:29 09/22/20 24 09/23/2024 COMP. METAB OLIC PANEL (14) glucose 95 mg/dL 70-99 normal Not Available [facility] ([facility]) [address] [facility], [place], [address], 09/23/2024 19:06:29 09/22/20 24 09/23/2024 COMP. METAB OLIC PANEL (14) BUN 18 mg/dL 8-27 normal Not Available [facility] ([facility]) [address] [facility], [place], [address], 09/23/2024 19:06:29 09/22/20 24 09/23/2024 COMP. METAB OLIC PANEL (14) creatinine 1.07 mg/dL 0.76-1 .27 normal Not Available [facility] ([facility]) [address] [place], [address], 09/23/2024 19:06:29 09/22/20 24 09/23/2024 COMP. METAB OLIC PANEL (14) eGFR 78 mL/mi n/1.7 3 >59 normal Not Available [facility] ([facility]) [address] [place], [address], 09/23/2024 19:06:29 09/22/20 24 09/23/2024 COMP. METAB OLIC PANEL (14) BUN/creatini ne ratio 17 10-24 normal Not Available [facility] ([facility]) [address] [facility], [place], [address], 09/23/2024 19:06:29 09/22/20 24 09/23/2024 COMP. METAB OLIC PANEL (14) sodium 135 mmol/ L 134-14 4 normal Not Available [facility] ([facility]) [address] [place], [address], 09/23/2024 19:06:29 09/22/20 24 09/23/2024 COMP. METAB OLIC PANEL (14) potassium 4.2 mmol/ L 3.5-5. 2 normal Not Available [facility] ([facility]) [address] [place], [address], 09/23/2024 19:06:29 09/22/20 24 09/23/2024 COMP. METAB OLIC PANEL (14) chloride 96 mmol/ L 96-106 normal Not Available [facility] ([facility]) [address] [place], [address], 09/23/2024 19:06:29 09/22/20 24 09/23/2024 COMP. METAB OLIC PANEL (14) carbon dioxide, total 24 mmol/ L 20-29 normal Not Available [facility] ([facility]) [address] [place], [address], 09/23/2024 19:06:29 09/22/20 24 09/23/2024 COMP. METAB OLIC PANEL (14) calcium 9.7 mg/dL 8.6-10 .2 normal Not Available [facility] ([facility]) [address] [place], [address], 09/23/2024 19:06:29 09/22/20 24 09/23/2024 COMP. METAB OLIC PANEL (14) protein, total 7.3 g/dL 6.0-8. 5 normal Not Available [facility] ([facility]) [address] [place], [address], 09/23/2024 19:06:29 09/22/20 24 09/23/2024 COMP. METAB OLIC PANEL (14) albumin 4.0 g/dL 3.9-4. 9 normal Not Available [facility] ([facility]) [address] [place], [address], 09/23/2024 19:06:29 09/22/20 24 09/23/2024 COMP. METAB OLIC PANEL (14) globulin, total 3.3 g/dL 1.5-4. 5 Not Available [facility] ([facility]) [address] [place], [address], 09/23/2024 19:06:29 09/22/20 24 09/23/2024 COMP. METAB OLIC PANEL (14) bilirubin, total 0.4 mg/dL 0.0-1. 2 normal Not Available [facility] ([facility]) [address] [place], [address], 09/23/2024 19:06:29 09/22/20 24 09/23/2024 COMP. METAB OLIC PANEL (14) alkaline phosphatase 126 IU/L 44-121 above high normal Not Available [facility] ([facility]) [address] [place], [address], 09/23/2024 19:06:29 09/22/20 24 09/23/2024 COMP. METAB OLIC PANEL (14) AST (SGOT) 7 IU/L 0-40 normal Not Available [facility] ([facility]) [address] [place], [address], 09/23/2024 19:06:29 09/22/20 24 09/23/2024 COMP. METAB OLIC PANEL (14) ALT (SGPT) 7 IU/L 0-44 normal Not Available [facility] ([facility]) [address] [facility], [place], [address], 09/23/2024 19:06:29 09/22/20 24 09/23/2024 TESTO STERO NE,FR EE AND TOTAL testosterone 109 NG/dL 264-91 6 below low normal Adult male refer ence inter andrae is based on a popul ation of healt hy nonob adolph males (BMI <30) betwe en 19 and 39 years old. Travi angi, et.al . JCEM 2017, 102;1 161-1 173. PMID: 21966 103. Not Available [facility] ([facility]) [address] [facility], [place], [address], 09/23/2024 19:06:30 09/22/20 24 09/23/2024 TESTO STERO NE,FR EE AND TOTAL free testosterone (direct) 0.7 pg/mL 6.6-18 .1 below low normal Not Available [facility] ([facility]) [address] [place], [address], 09/23/2024 19:06:30 09/22/20 24 09/23/2024 HEMOG LOBIN A1C hemoglobin A1C 7.0 % 4.8-5. 6 above high normal Predi abete s: 5.7 - 6.4 Diabe dawson: >6.4 Glyce popeye contr ol for adult s with diabe dawson: <7.0 Not Available [facility] ([facility]) [address] [facility], [place], [address], 09/23/2024 19:06:30 09/22/20 24 09/23/2024 SEDIM ENTAT ION RATE- WESTE RGREN sedimentatio n rate-westerg laurie 95 mm/HR 0-30 above high normal Not Available [facility] ([facility]) [address] [facility], [place], [address], 09/23/2024 19:06:30 09/22/20 24 09/23/2024 C-SAVANNA CTIVE PROTE IN, QUANT C-reactive protein, quant 24 mg/L 0-10 above high normal Not Available [facility] ([facility]) [address] [facility], [place], [address], 09/23/2024 19:06:31 11/25/19 25 11/26/2024 TSH+F REE T4 TSH 1.080 uIU/m L 0.450- 4.500 normal Not Available [facility] ([facility]) [address] [place], [address], 11/26/2024 11:07:44 11/25/19 25 11/26/2024 TSH+F REE T4 T4,free(dire ct) 1.75 NG/dL 0.82-1 .77 normal Not Available [facility] ([facility]) [address] [place], [address], 11/26/2024 11:07:44 11/25/19 25 11/26/2024 CBC WITH DIFFE RENTI AL/PL ATELE T WBC 7.0 x10e3 /uL 3.4-10 .8 normal Not Available [facility] ([facility]) [address] [place], [address], 11/26/2024 11:07:46 11/25/19 25 11/26/2024 CBC WITH DIFFE RENTI AL/PL ATELE T RBC 4.55 x10e6 /uL 4.14-5 .80 normal Not Available [facility] ([facility]) [address] [place], [address], 11/26/2024 11:07:46 11/25/19 25 11/26/2024 CBC WITH DIFFE RENTI AL/PL ATELE T hemoglobin 12.4 g/dL 13.0-1 7.7 below low normal Not Available [facility] ([facility]) [address] [place], [address], 11/26/2024 11:07:46 11/25/19 25 11/26/2024 CBC WITH DIFFE RENTI AL/PL ATELE T hematocrit 39.1 % 37.5-5 1.0 normal Not Available [facility] ([facility]) [address] [place], [address], 11/26/2024 11:07:46 11/25/19 25 11/26/2024 CBC WITH DIFFE RENTI AL/PL ATELE T MCV 86 fL 79-97 normal Not Available [facility] ([facility]) [address] [place], [address], 11/26/2024 11:07:46 11/25/19 25 11/26/2024 CBC WITH DIFFE RENTI AL/PL ATELE T MCH 27.3 pg 26.6-3 3.0 normal Not Available [facility] ([facility]) [address] [place], [address], 11/26/2024 11:07:46 11/25/19 25 11/26/2024 CBC WITH DIFFE RENTI AL/PL ATELE T MCHC 31.7 g/dL 31.5-3 5.7 normal Not Available [facility] ([facility]) [address] [place], [address], 11/26/2024 11:07:46 11/25/19 25 11/26/2024 CBC WITH DIFFE RENTI AL/PL ATELE T RDW 15.3 % 11.6-1 5.4 Not Available [facility] ([facility]) [address] [facility], [place], [address], 11/26/2024 11:07:46 11/25/19 25 11/26/2024 CBC WITH DIFFE RENTI AL/PL ATELE T platelets 184 x10e3 /uL 150-45 0 normal Not Available [facility] ([facility]) [address] [place], [address], 11/26/2024 11:07:46 11/25/19 25 11/26/2024 CBC WITH DIFFE RENTI AL/PL ATELE T neutrophils 67 % not estab. normal Not Available [facility] ([facility]) [address] [facility], [place], [address], 11/26/2024 11:07:46 11/25/19 25 11/26/2024 CBC WITH DIFFE RENTI AL/PL ATELE T lymphs 23 % not estab. normal Not Available [facility] ([facility]) [address] [facility], [place], [address], 11/26/2024 11:07:46 11/25/19 25 11/26/2024 CBC WITH DIFFE RENTI AL/PL ATELE T monocytes 6 % not estab. normal Not Available [facility] ([facility]) [address] [facility], [place], [address], 11/26/2024 11:07:46 11/25/19 25 11/26/2024 CBC WITH DIFFE RENTI AL/PL ATELE T eos 3 % not estab. normal Not Available [facility] ([facility]) [address] [place], [address], 11/26/2024 11:07:46 11/25/19 25 11/26/2024 CBC WITH DIFFE RENTI AL/PL ATELE T basos 1 % not estab. normal Not Available [facility] ([facility]) [address] [place], [address], 11/26/2024 11:07:46 11/25/19 25 11/26/2024 CBC WITH DIFFE RENTI AL/PL ATELE T immature cells LIFTER/DRIVER Not Available [facility] ([facility]) [address] [place], [address], 11/26/2024 11:07:46 11/25/19 25 11/26/2024 CBC WITH DIFFE RENTI AL/PL ATELE T neutrophils (absolute) 4.7 x10e3 /uL 1.4-7. 0 normal Not Available [facility] ([facility]) [address] [place], [address], 11/26/2024 11:07:46 11/25/19 25 11/26/2024 CBC WITH DIFFE RENTI AL/PL ATELE T lymphs (absolute) 1.6 x10e3 /uL 0.7-3. 1 normal Not Available [facility] ([facility]) [address] [place], [address], 11/26/2024 11:07:46 11/25/19 25 11/26/2024 CBC WITH DIFFE RENTI AL/PL ATELE T monocytes(ab solute) 0.4 x10e3 /uL 0.1-0. 9 normal Not Available [facility] ([facility]) [address] [place], [address], 11/26/2024 11:07:46 11/25/19 25 11/26/2024 CBC WITH DIFFE RENTI AL/PL ATELE T eos (absolute) 0.2 x10e3 /uL 0.0-0. 4 normal Not Available [facility] ([facility]) [address] [place], [address], 11/26/2024 11:07:46 11/25/19 25 11/26/2024 CBC WITH DIFFE RENTI AL/PL ATELE T baso (absolute) 0.0 x10e3 /uL 0.0-0. 2 normal Not Available [facility] ([facility]) [address] [facility], [place], [address], 11/26/2024 11:07:46 11/25/19 25 11/26/2024 CBC WITH DIFFE RENTI AL/PL ATELE T immature granulocytes 0 % not estab. Not Available [facility] ([facility]) [address] [facility], [place], [address], 11/26/2024 11:07:46 11/25/19 25 11/26/2024 CBC WITH DIFFE RENTI AL/PL ATELE T immature grans (abs) 0.0 x10e3 /uL 0.0-0. 1 Not Available [facility] ([facility]) [address] [facility], [place], [address], 11/26/2024 11:07:46 11/25/19 25 11/26/2024 CBC WITH DIFFE RENTI AL/PL ATELE T NRBC LIFTER/DRIVER Not Available [facility] ([facility]) [address] [facility], [place], [address], 11/26/2024 11:07:46 11/25/19 25 11/26/2024 CBC WITH DIFFE RENTI AL/PL ATELE T hematology comments: LIFTER/DRIVER Not Available [facility] ([facility]) [address] [facility], [place], [address], 11/26/2024 11:07:46 11/25/19 25 11/26/2024 VITAM IN B12 AND FOLAT E vitamin B12 172 pg/mL 232-12 45 below low normal Not Available [facility] ([facility]) [address] [facility], [place], [address], 11/26/2024 11:07:46 11/25/19 25 11/26/2024 VITAM IN B12 AND FOLAT E folate (folic acid), serum 6.5 NG/mL >3.0 normal A serum folat e derrick ntrat ion of less than 3.1 ng/mL is consi dered to repre sent clini clara defic iency . Not Available [facility] ([facility]) [address] [facility], [place], [address], 11/26/2024 11:07:46 11/25/19 25 11/26/2024 VITAM IN [...] Laurel aguilar DC: [facility] . 2. Margo noonan MF, Samantha carrasquillo [place], Kizzy off-F errar i CORRAL, et al. Evalu ation , treat ment, and preve ntion of vitam in D defic iency : an Endoc rine Socie ty clini clara pract ice guide line. JCEM. 2010; 96(7) :1911 -30. Not Available [facility] ([facility]) [address] [facility], [place], [address], 11/26/2024 11:07:47 02/25/20 25 02/24/2025 HbA1c (hemo globi n A1c), blood HbA1C 5.9 % Not Available [address], [address], 02/24/2025 08:39:09 05/25/20 25 05/26/2025 TSH+F REE T4 TSH 1.380 uIU/m L 0.450- 4.500 normal Not Available [facility] ([facility]) [address] [place], [address], 05/29/2025 14:07:56 05/25/2005/26/2025 TSH+F REE T4 T4,free(dire ct) 1.67 NG/dL 0.82-1 .77 normal Not Available [facility] ([facility]) [address] [place], [address], 05/29/2025 14:07:56 05/25/2005/26/2025 CBC WITH DIFFE RENTI AL/PL ATELE T WBC 7.8 x10e3 /uL 3.4-10 .8 normal Not Available [facility] ([facility]) [address] [facility], [place], [address], 05/29/2025 14:07:57 05/25/20 25 05/26/2025 CBC WITH DIFFE RENTI AL/PL ATELE T RBC 4.00 x10e6 /uL 4.14-5 .80 below low normal Not Available [facility] ([facility]) [address] [place], [address], 05/29/2025 14:07:57 05/25/20 25 05/26/2025 CBC WITH DIFFE RENTI AL/PL ATELE T hemoglobin 12.2 g/dL 13.0-1 7.7 below low normal Not Available [facility] ([facility]) [address] [place], [address], 05/29/2025 14:07:57 05/25/20 25 05/26/2025 CBC WITH DIFFE RENTI AL/PL ATELE T hematocrit 37.6 % 37.5-5 1.0 normal Not Available [facility] ([facility]) [address] [place], [address], 05/29/2025 14:07:57 05/25/20 25 05/26/2025 CBC WITH DIFFE RENTI AL/PL ATELE T MCV 94 fL 79-97 normal Not Available [facility] ([facility]) [address] [facility], [place], [address], 05/29/2025 14:07:57 05/25/20 25 05/26/2025 CBC WITH DIFFE RENTI AL/PL ATELE T MCH 30.5 pg 26.6-3 3.0 normal Not Available [facility] ([facility]) [address] [facility], [place], [address], 05/29/2025 14:07:57 05/25/20 25 05/26/2025 CBC WITH DIFFE RENTI AL/PL ATELE T MCHC 32.4 g/dL 31.5-3 5.7 normal Not Available [facility] ([facility]) [address] [facility], [place], [address], 05/29/2025 14:07:57 05/25/20 25 05/26/2025 CBC WITH DIFFE RENTI AL/PL ATELE T RDW 14.2 % 11.6-1 5.4 Not Available [facility] ([facility]) [address] [facility], [place], [address], 05/29/2025 14:07:57 05/25/20 25 05/26/2025 CBC WITH DIFFE RENTI AL/PL ATELE T platelets 171 x10e3 /uL 150-45 0 normal Not Available [facility] ([facility]) [address] [place], [address], 05/29/2025 14:07:57 05/25/20 25 05/26/2025 CBC WITH DIFFE RENTI AL/PL ATELE T neutrophils 68 % not estab. normal Not Available [facility] ([facility]) [address] [facility], [place], [address], 05/29/2025 14:07:57 05/25/20 25 05/26/2025 CBC WITH DIFFE RENTI AL/PL ATELE T lymphs 21 % not estab. normal Not Available [facility] ([facility]) [address] [place], [address], 05/29/2025 14:07:57 05/25/20 25 05/26/2025 CBC WITH DIFFE RENTI AL/PL ATELE T monocytes 6 % not estab. normal Not Available [facility] ([facility]) [address] [place], [address], 05/29/2025 14:07:57 05/25/20 25 05/26/2025 CBC WITH DIFFE RENTI AL/PL ATELE T eos 4 % not estab. normal Not Available [facility] ([facility]) [address] [place], [address], 05/29/2025 14:07:57 05/25/20 25 05/26/2025 CBC WITH DIFFE RENTI AL/PL ATELE T basos 1 % not estab. 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 0 normal Not Available [facility] ([facility]) [address] [place], [address], 05/29/2025 14:07:57 05/25/20 25 05/26/2025 CBC WITH DIFFE RENTI AL/PL ATELE T lymphs (absolute) 1.6 x10e3 /uL 0.7-3. 1 normal Not Available [facility] ([facility]) [address] [place], [address], 05/29/2025 14:07:57 05/25/20 25 05/26/2025 CBC WITH DIFFE RENTI AL/PL ATELE T monocytes(ab solute) 0.5 x10e3 /uL 0.1-0. 9 normal Not Available [facility] ([facility]) [address] [facility], [place], [address], 05/29/2025 14:07:57 05/25/20 25 05/26/2025 CBC WITH DIFFE RENTI AL/PL ATELE T eos (absolute) 0.3 x10e3 /uL 0.0-0. 4 normal Not Available [facility] ([facility]) [address] [facility], [place], [address], 05/29/2025 14:07:57 05/25/20 25 05/26/2025 CBC WITH DIFFE RENTI AL/PL ATELE T baso (absolute) 0.0 x10e3 /uL 0.0-0. 2 normal Not Available [facility] ([facility]) [address] [facility], [place], [address], 05/29/2025 14:07:57 05/25/20 25 05/26/2025 CBC WITH DIFFE RENTI AL/PL ATELE T immature granulocytes 0 % not estab. Not Available [facility] ([facility]) [address] [facility], [place], [address], 05/29/2025 14:07:57 05/25/20 25 05/26/2025 CBC WITH DIFFE RENTI AL/PL ATELE T immature grans (abs) 0.0 x10e3 /uL 0.0-0. 1 Not Available [facility] ([facility]) [address] [facility], [place], [address], 05/29/2025 14:07:57 05/25/20 25 05/26/2025 CBC WITH DIFFE RENTI AL/PL ATELE T NRBC LIFTER/DRIVER Not Available [facility] ([facility]) [address] [facility], [place], [address], 05/29/2025 14:07:57 05/25/20 25 05/26/2025 CBC WITH DIFFE DENIS AL/HELLEN Menard hematology comments: LIFTER/DRIVER Not Available [facility] ([facility]) [address] [facility], [place], [address], 05/29/2025 14:07:57 05/25/20 25 05/26/2025 COMP. METAB OLIC PANEL (14) glucose 83 mg/dL 70-99 normal Not Available [facility] ([facility]) [address] [facility], [place], [address], 05/29/2025 14:07:58 05/25/20 25 05/26/2025 COMP. METAB OLIC PANEL (14) BUN 14 mg/dL 8-27 normal Not Available [facility] ([facility]) [address] [facility], [place], [address], 05/29/2025 14:07:58 05/25/20 25 05/26/2025 COMP. METAB OLIC PANEL (14) creatinine 1.11 mg/dL 0.76-1 .27 normal Not Available [facility] ([facility]) [address] [facility], [place], [address], 05/29/2025 14:07:58 05/25/20 25 05/26/2025 COMP. METAB OLIC PANEL (14) eGFR 75 mL/mi n/1.7 3 >59 normal Not Available [facility] ([facility]) [address] [place], [address], 05/29/2025 14:07:58 05/25/20 25 05/26/2025 COMP. METAB OLIC PANEL (14) BUN/creatini ne ratio 13 10-24 normal Not Available [facility] ([facility]) [address] [facility], [place], [address], 05/29/2025 14:07:58 05/25/20 25 05/26/2025 COMP. METAB OLIC PANEL (14) sodium 140 mmol/ L 134-14 4 normal Not Available [facility] ([facility]) [address] [place], [address], 05/29/2025 14:07:58 05/25/20 25 05/26/2025 COMP. METAB OLIC PANEL (14) potassium 4.3 mmol/ L 3.5-5. 2 normal Not Available [facility] ([facility]) [address] [place], [address], 05/29/2025 14:07:58 05/25/20 25 05/26/2025 COMP. METAB OLIC PANEL (14) chloride 105 mmol/ L 96-106 normal Not Available [facility] ([facility]) [address] [place], [address], 05/29/2025 14:07:58 05/25/20 25 05/26/2025 COMP. METAB OLIC PANEL (14) carbon dioxide, total 19 mmol/ L 20-29 below low normal Not Available [facility] ([facility]) [address] [place], [address], 05/29/2025 14:07:58 05/25/20 25 05/26/2025 COMP. METAB OLIC PANEL (14) calcium 8.8 mg/dL 8.6-10 .2 normal Not Available [facility] ([facility]) [address] [place], [address], 05/29/2025 14:07:58 05/25/20 25 05/26/2025 COMP. METAB OLIC PANEL (14) protein, total 7.0 g/dL 6.0-8. 5 normal Not Available [facility] ([facility]) [address] [place], [address], 05/29/2025 14:07:58 05/25/20 25 05/26/2025 COMP. METAB OLIC PANEL (14) albumin 4.2 g/dL 3.9-4. 9 normal Not Available [facility] ([facility]) [address] [place], [address], 05/29/2025 14:07:58 05/25/20 25 05/26/2025 COMP. METAB OLIC PANEL (14) globulin, total 2.8 g/dL 1.5-4. 5 Not Available [facility] ([facility]) [address] [facility], [place], [address], 05/29/2025 14:07:58 05/25/20 25 05/26/2025 COMP. METAB OLIC PANEL (14) bilirubin, total 0.3 mg/dL 0.0-1. 2 normal Not Available [facility] ([facility]) [address] [facility], [place], [address], 05/29/2025 14:07:58 05/25/20 25 05/26/2025 COMP. METAB OLIC PANEL (14) alkaline phosphatase 120 IU/L 44-121 normal Not Available [facility] ([facility]) [address] [place], [address], 05/29/2025 14:07:58 05/25/20 25 05/26/2025 COMP. METAB OLIC PANEL (14) AST (SGOT) 11 IU/L 0-40 normal Not Available [facility] ([facility]) [address] [place], [address], 05/29/2025 14:07:58 05/25/20 25 05/26/2025 COMP. METAB OLIC PANEL (14) ALT (SGPT) 10 IU/L 0-44 normal Not Available [facility] ([facility]) [address] [place], [address], 05/29/2025 14:07:58 05/25/20 25 05/26/2025 LIPID PANEL cholesterol, total 134 mg/dL 100-19 9 normal Not Available [facility] ([facility]) [address] [place], [address], 05/29/2025 14:07:58 05/25/20 25 05/26/2025 LIPID PANEL triglyceride s 88 mg/dL 0-149 normal Not Available [facility] ([facility]) [address] [place], [address], 05/29/2025 14:07:58 05/25/20 25 05/26/2025 LIPID PANEL HDL cholesterol 33 mg/dL >39 below low normal Not Available [facility] ([facility]) [address] [place], [address], 05/29/2025 14:07:58 05/25/20 25 05/26/2025 LIPID PANEL VLDL cholesterol clara 17 mg/dL 5-40 Not Available [facility] ([facility]) [address] [place], [address], 05/29/2025 14:07:58 05/25/20 25 05/26/2025 LIPID PANEL LDL chol calc ([facility]) 84 mg/dL 0-99 Not Available [facility] ([facility]) [address] [place], [address], 05/29/2025 14:07:58 05/25/20 25 05/26/2025 LIPID PANEL LDL calc comment: LIFTER/DRIVER Not Available [facility] ([facility]) [address] [place], [address], 05/29/2025 14:07:58 05/25/20 25 05/26/2025 ALBUM IN/CR EATIN INE RATIO ,URIN E creatinine, urine 61.4 mg/dL not estab. normal Not Available [facility] ([facility]) [address] [place], [address], 05/29/2025 14:07:59 05/25/20 25 05/26/2025 ALBUM IN/CR EATIN INE RATIO ,URIN E albumin, urine 19.8 ug/mL not estab. Not Available [facility] ([facility]) [address] [place], [address], 05/29/2025 14:07:59 05/25/20 25 05/26/2025 ALBUM IN/CR EATIN INE RATIO ,URIN E alb/creat ratio 32 mg/g_ creat 0-29 above high normal Mickie l: 0 - 29 Moder ately incre ased: 30 - 300 Sever blessing incre ased: >300 Not Available [facility] ([facility]) [address] [place], [address], 05/29/2025 14:07:59 05/25/2005/26/2025 TESTO STERO NE,FR EE AND TOTAL testosterone 119 NG/dL 264-91 6 below low normal Adult male refer ence inter andrae is based on a popul ation of healt hy nonob adolph males (BMI <30) betwe en 19 and 39 years old. Mae whitley, et.al . JCEM 2017, 102;1 161-1 173. PMID: 73541 103. Not Available [facility] ([facility]) [address] [facility], [place], [address], 05/29/2025 14:07:59 05/25/2005/29/2025 TESTO STERO NE,FR EE AND TOTAL free testosterone (direct) 1.5 pg/mL 6.6-18 .1 below low normal Not Available [facility] ([facility]) [address] [place], [address], 05/29/2025 14:07:59 05/25/2005/26/2025 HEMOG LOBIN A1C hemoglobin A1C 6.0 % 4.8-5. 6 above high normal Predi abete s: 5.7 - 6.4 Diabe dawson: >6.4 Glyce popeye contr ol for adult s with diabe dawsno: <7.0 Not Available [facility] ([facility]) [address] [facility], [place], [address], 05/29/2025 14:08:00 05/25/20 25 05/26/2025 VITAM IN B12 vitamin B12 >2000 pg/mL 232-12 45 above high normal Not Available [facility] ([facility]) [address] [facility], [place], [address], 05/29/2025 14:08:01 05/25/20 25 05/26/2025 MAGNE SIUM magnesium 1.4 mg/dL 1.6-2. 3 below low normal Not Available [facility] ([facility]) [address] [facility], [place], [address], 05/29/2025 14:08:01 09/15/20 24 09/05/2024 US, doppl er echoc ardio gram No observ ation record ed. [email or web address], [place], [address], 09/15/2024 13:39:14 10/21/20 CT, chest , w/o contr ast No observ ation record ed. [address] , [place], [address], 10/24/2024 16:44:51 12/01/19 25 12/01/2024 DEXA No observ ation record ed. [place] [id number], [place], [address], 12/01/2024 16:58:40 05/25/20 25 05/25/2025 elect rocar diogr am No observ ation record ed. [address], [address], 05/25/2025 08:31:38 05/26/20 25 05/25/2025 elect rocar diogr am No observ ation record ed. [email or web address] [facility] [address] [facility], [place], [address], 06/03/2025 09:11:56 06/09/20 25 06/08/2025 CT, angio gram, coron diya arter ies, w/ contr ast No observ ation record ed. [email or web address] [facility] [address], [place], [address], 06/09/2025 15:01:48 Result Notes None recorded. Problems Name Problem SNOMED Code Status Onset Date Resolution Date Notes Provider Name and Address Organization Details Recorded Time Type 2 diabetes mellitus 90701139 Active 2023 Khadijah Dolan APRN [address], [place], [address], [place] - [facility] 4 16:14:49 Hypertensive disorder 81960042 Active 2023 hKadijah Dolan APRN [address], [place], [address], [place] [facility] 4 16:14:30 Hypercholester olemia 18698901 Active 2023 Khadijah Dolan APRN [address], [place], [address] [facility] 4 16:14:26 Chronic obstructive pulmonary disease 68964697 Active 2023 Khadijah Dolan APRN [address], [place], [address] [facility] 4 16:14:11 History of primary malignant neoplasm of urinary bladder 817922989 Active 2023 Khadijah Dolan APRN [address], [place], [address], [place] [facility] 4 16:14:22 Vitamin D deficiency 74718576 Active 2023 Khadijah Dolan APRN [address], [place], [address], [place] [facility] 4 16:15:06 Neuropathy 791382342 Active 2023 Khadijah Dolan [employer] [address], [place], [address], [place] [facility] 4 16:14:37 Gastroesophage al reflux disease 906575678 Active 2023 Khadijah Dolan [employer] [address], [place], [address], [place] [facility] 4 16:14:19 Hypothyroidism 71578609 Active 2023 Khadijah Dolan, [employer] [address], [place], [address], [place] [facility] 4 16:14:33 Chronic back pain 945124291 Active 2023 Khadijah Dolan APRN [address], [place], [address], [place] [facility] 4 16:14:07 Osteoarthritis 353773016 Active 2023 Khadijah Dolan APRN [address], [place], [address], [place] [facility] 4 16:14:41 Cobalamin deficiency 459123313 Active 2024 Khadijah Dolan APRN [address], [place], [address], [place] [facility] 5 09:03:37 Testosterone level below reference range 624372377 Active 2024 Khadijah Dolan APRN [address], [place], [address], [place] [facility] 5 09:03:39 [...] Name and Address Organization Details Recorded Time 447362 Product containin g penicilli n (product) medicatio n Not available Not available Not available 01/15/2024 32271 8001 SNOMED Elizabeth Stears null, [place] - [facility] 4 17:16:15 505738 Bactrim medicatio n Not available Not available low 09/22/2024 74128 9 RxNorm Khadijah Dolan, [employer] [address], [place], [address], [place] - [facility] 4 11:17:51 Medications Name Sig Start Date Stop Date Status Note LastModified by Organization Details LastModified Time Prescript ion - Prior Authoriza tion Request active Not Available Not Available Not Available losartan 50 mg tablet TAKE ONE TABLET BY MOUTH EVERY DAY active Not Available Not Available No t Available furosemid e 40 mg tablet TAKE 1 TABLET BY MOUTH EVERY DAY active Not Available Not Available No t Available atorvasta tin 40 mg tablet TAKE 1 TABLET BY MOUTH EVERY DAY active Not Available Not Available No t Available doxycycli ne hyclate 100 mg capsule [...] t Available atorvasta tin 10 mg tablet TAKE ONE (1) TABLET EVERY [...] completed Not Available Not Available Not Available valsartan 80 mg tablet TAKE 1 TABLET BY MOUTH [...] Not Available Not Available No t Available diazepam 5 mg tablet Take 1 tablet twice a day by oral route as needed. 11/25 completed Not Available Not Available Not Available ketorolac 0.4 % eye drops STARTING THREE (3) DAYS BEFORE SURGERY USE ONE (1) DROP IN THE OPERATIV E EYE FOUR (4) TIMES A DAY FOR 10 DAYS THEN DECREASE TO TWICE DAILY FOR 14 DAYS active Not Available Not Available No t Available nitrofura ntoin monohydra te/macroc rystals 100 mg capsule TAKE ONE (1) CAPSULE (100 MG) BY MOUTH TWO (2) (TWO) TIMES A DAY. active Not Available Not Available No t Available duloxetin e 30 mg capsule,d elayed release TAKE ONE (1) CAPSULE EVERY DAY [...] completed Not Available Not Available Not Available prasugrel HCl 10 mg tablet TAKE ONE TABLET BY MOUTH EVERY DAY FOR post pci active Not Available Not Available No t Available Probiotic 10 stands once a day 04/15 completed Not Available Not Available Not Available Suboxone 8 mg-[address] l film Place 1 film every day by sublingu al route. active Not Available Not Available No t Available Tradjenta 5 mg tablet Take 1 tablet every day by oral route. 2024 active lot # [id number] exp;09/22 Not Available Not Available Not Available [...] Available No t Available FreeStyle Noemi 3 Raphine USE DIRECTED PER MD OFFICE active Not Available Not Available No t Available Ultra-Fin e Pen Needle 31 gauge x 3/16 USE DIRECTED PER MD active Not Available [...] Updated DateTime 5 175.26 cm 29.7 kg/m2 12910.0 7 g 92 % 92 % 76 /min 18 /min 7 158/88 mm[Hg] Tana Vazquez [facility] 5 13:09:32 Date Recorded Body height Body mass index (BMI) Body weight Pain severity - 0-10 verbal numeric rating [Score] - Reported Respiratory rate Heart rate Oxygen saturation Oxygen saturation in Arterial blood by Pulse oximetry Systolic And Diastolic Provider Name and Address Organization Details Last Updated DateTime 5 175.26 cm 30 kg/m2 47826.2 5 g 8 20 /min 63 /min 96 % 96 % 132/82 mm[Hg] Tana aVzquez [facility] 5 08:12:43 Date Recorded Body height Body mass index (BMI) Body weight Body temperature Heart rate Oxygen saturation Oxygen saturation in Arterial blood by Pulse oximetry Respiratory rate Pain severity - 0-10 verbal numeric rating [Score] - Reported Systolic And Diastolic Provider Name and Address Organization Details Last Updated DateTime 5 175.26 cm 29.8 kg/m2 79662.6 6 g 98 [degF] 45 /min 98 % 98 % 18 /min 6 138/80 mm[Hg] Tana Vazquez [facility] 5 08:17:13 Date Recorded Body height Body mass index (BMI) Body weight Body temperature Heart rate Oxygen saturation Oxygen saturation in Arterial blood by Pulse oximetry Respiratory rate Pain severity - 0-10 verbal numeric rating [Score] - Reported Systolic And Diastolic Provider Name and Address Organization Details Last Updated DateTime 4 175.26 cm 31 kg/m2 55597.4 g 97.8 [degF] 79 /min 96 % 96 % 18 /min 7 124/70 mm[Hg] Tana Vazquez [place] - [facility] 4 08:33:39 Date Recorded Body height Respiratory rate Body mass index (BMI) Body weight Heart rate Oxygen saturation Oxygen saturation in Arterial blood by Pulse oximetry Body temperature Systolic And Diastolic Provider Name and Address Organization Details Last Updated DateTime 4 175.26 cm 18 /min 30.6 kg/m2 12507.6 2 g 86 /min 92 % 92 % 98.1 [degF] 162/80 mm[Hg] Elizabeth Duranmarija [place] - [facility] 4 08:49:59 Social History Question Answer Notes LastModified by Organizat ion Details LastModified Time Tobacco Smoking Status Current Every Day Smoker Elizabeth Светлана [facility] [place] [place] - [facility] 01/15/2024 17:15:23 Do You [...] Or The Highest Degree You Have Received? [id number] Information not available 01/15/2024 Have There Been Any Changes To Your Family Or Social Situation? No Information not available 01/15/2024 What Is The Fluoride Status Of Your Home? Unknown Information not available 01/15/2024 Do You Have A Medical Power Of Agricultural Education Professor? No Information not available 01/15/2024 What Was [...] anxious, or unable to sleep at night)? [id number] Information not available 01/15/2024 Do you have [...] quadrivalent, PF 0 completed Elizabeth Stears null, [place] - [facility] 02/11/2024 11:39:26 Past Encounters Encounter ID Performer Location Encounter Start Date Encounter Closed Date Diagnosis/Indication Diagnosis SNOMED-CT Code Diagnosis ICD10 Code Diagnosis IMO Codes Diagnosis Note [id number] Khadijah Dolan [address] [address] 01/15/2024 16:59:46 01/15/2024 18:30:27 Body mass index 30+ - obesity 818796233 Z68.36 36.6 Obesity 879182182 E66.9 Type 2 veronika betes mellitus 91979254 E11.22 has had more than 2 hypoglycem ic eventsstop glipizide Chronic back pain 143541 002 G89.29 Chronic ob structive pulmonary disease 18476546 J44.9 Gastroesop hageal reflux disease 361813832 K21.9 History of primary malignant neoplasm of urinary bladder 608575504 Z85.51 Hypercholesterolemia 136 08129 E78.00 Hypertensive disorder 38 374048 I10 Hypothyroidism 27554005 E03.9 Neuropathy 169075921 G62 .9 Osteoarthritis 107433464 M19.90 Skin lesion 16925060 L98 .9 [id number] Khadijah Dolan APRN [address] [address] 02/11/2024 11:15:07 02/11/2024 12:08:22 Type 2 diabetes mellitus 79702298 E11.22 has had more than 2 hypoglycem ic eventsstop glipizide Neuropathy 073153867 G62 .9 Pt compliant with plan of careKasper reviewedme dication compliance discussedL ast uds: 4Control substance agreement on file Long-term drug therapy 310195447 Z79.824 [id number] Raisazoie Dolan [address] [address] 04/15/2024 15:13:38 04/15/2024 16:17:29 Type 2 diabetes mellitus 91323910 E11.22 check labsmay need to add jardiance back if a1c high Gastroesop hageal reflux disease 955337330 K21.9 Hypercholesterolemia 136 72319 E78.00 labs Hypertensive disorder 38 988351 I10 labs Hypothyroidism 43933785 E03.9 labs Neuropathy 490826020 G62 .9 Vitamin D deficiency 347 58050 E55.9 labs History of primary malignant neoplasm of urinary bladder 714092224 Z85.51 Pain of le ft knee joint 1025346041 00102 M25.562 xray Pain of ri ght knee joint 7271846208 60805 M25.561 xray Fatigue 47627667 R53.83 labs [id number] Khadijah Gilsanabaltazar [address] [address] 05/06/2024 08:49:49 05/06/2024 09:23:04 Hemoglobin below reference range 206790958 D64.9 Screening for malignant neoplasm of colon 215038178 Z12.11 per last lab results, Khadijah wants pt to have cologard done Anemia 090403837 D64.9 [id number] Raisazoie Dolan [address] [address] 05/13/2024 15:07:01 05/13/2024 15:59:08 Neuropathy 653285529 G62.9 Pt compliant with plan of careCarlynsper reviewedme dication compliance discussedL ast uds: 4Control substance agreement on file [id number] Tana Esquivel APRN [facility] [address] [place] [address] 05/14/2024 15:10:32 05/15/2024 10:16:55 Lichenification of skin 112982873 L28.0 discussed correlatio n to picking and rubbing elbows. [id number] Khadijah Dolan [address] [address] 06/10/2024 10:14:57 06/10/2024 11:05:15 Adult health examination 975552588 Z00.00 Depression screening 171 470579 Z13.31 A depression screening was completed via a standardiz ed screening tool. 5 minutes were spent discussing depression screening results and risk factors. Examinatio n of blood pressure 069579762 Z01.30 Diet education 41904458 Z71.3 Counseling 264911098 Z71 .82 Exercise counseling . Patient encouraged to exercise 30 minutes 5 days a week. At [facility] ed risk for falls 940588242 Z91.81 STEADI FAST screening score of ___4__. Advance care planning 71 6199086 Z71.89 Finding of body mass index 616220257 Z68.33 Seasonal a llergic rhinitis 725424178 J30.2 Obesity 430871134 E66.9 Type 2 veronika betes mellitus 99416520 E11.22 check labsadded tradjenta- due to bladder cancer do not want to add med that could affect his treatment. if tradjenta does not work will add lantus at bedtime. will recheck labs and review cgm next month. [id number] Khadijah Dolan APRN [address] [address] 07/08/2024 07:55:18 07/08/2024 08:52:45 Gastroesophageal reflux disease 810256495 K21.9 Hypercholesterolemia 136 92405 E78.00 labs Hypertensive disorder 38 892650 I10 labs Hypothyroidism 34554649 E03.9 labs Neuropathy 657478366 G62 .9 Pt compliant with plan of careKasper reviewedme dication compliance discussedL ast uds: 4Control substance agreement on file Type 2 veronika betes mellitus 48268871 E11.22 check labs Vitamin D deficiency 347 30499 E55.9 labs Active or passive immunization 697264090 Z23 Long-term current use of drug therapy 289402625 Z79.899 HIV screening 690784006 Z11.4 Hepatitis C screening 41 3667761 Z11.59 Screening for malignant neoplasm of respiratory tract 758929984 Z12.2 Nicotine d ependence with current use 578532410 F17.210 Current tobacco user Anxiety 95382418 F41.9 will check thyroid- if wnl will adjust meds Colon canc er screening declined 0872234802 9109 Z53.20 declined colonoscop y or cologuard, states he is not doing any test History of nicotine dependence 8406883893 01281198 Z87.472 [id number] Khadijah Dolan [address] [address] 07/28/2024 08:03:44 07/28/2024 09:06:16 Multiple nodules of lung 776573528 R91.8 refer to pulmonolog y Type 2 veronika betes mellitus 99942075 E11.22 reviewed glucose log- start lantusdisc ussed injections with pt Neuropathy 250478211 G62 .9 Pt compliant with plan of careKasper reviewedme dication compliance discussedL ast uds: 4Control substance agreement on filelyrica taper Depressive disorder 6854 9007 F32.A will do low dose cymbalta due to other medsdiscus sed dc effexor and starting cymbalta with pharm [id number] Khadijah Dolan [address] [address] 08/25/2024 08:15:06 08/25/2024 09:02:51 Osteoarthritis 674349805 M19.90 Chronic back pain 268005 002 G89.29 Hypothyroidism 40525543 E03.9 labs next visit Gastroesop hageal reflux disease 794121878 K21.9 Neuropathy 480314685 G62 .9 Pt compliant with plan of careKasper reviewedme dication compliance discussedL ast uds: 4Control substance agreement on filelyrica taper Hypertensive disorder 38 780164 I10 Disorder o f nasal sinus 9388112 J34.9 Anxiety 47633747 F41.9 discussed with pt he can not be on diazepam, and suboxone. offered to send to [facility],pt declined, he states he sees one at the clinic. [id number] Khadijah Dolan [address] [address] 09/22/2024 08:12:07 09/22/2024 09:46:49 Type 2 diabetes mellitus 83373081 E11.22 reviewed glucose log- start lantusdisc ussed injections with pt Neuropathy 517567404 G62 .9 Pt compliant with plan of careKasper reviewedme dication compliance discussedL ast uds: 4Control substance agreement on filelyrica taper Foot ulcer due to type 2 diabetes mellitus 1285275297 100 E11.621 betadine soaks to heel bid- walking boot when walkingcle an area bid apply dressingre turn if symptoms worsen or no improvemen t Testostero ne level below reference range 169030526 R89.1 Hyperlipidemia 20283459 E78.5 Gastroesop hageal reflux disease 716240594 K21.9 Vitamin D deficiency 347 40415 E55.9 labs [id number] Khadijah Dolan [address] [address] 11/25/2024 12:57:46 11/25/2024 14:28:19 Chronic back pain 008904168 G89.29 Osteoarthritis 285752705 M19.90 Neuropathy 758497524 G62 .9 Pt compliant with plan of careKasper reviewedme dication compliance discussedL ast uds: 4Control substance agreement on filelyrica eod- last script Hemoglobin below reference range 574941177 D64.9 Fatigue 61577377 R53.83 labs Depressive disorder 3548 9007 F32.A refer to [facility] for med adjustment s due to being on suboxone Testostero ne level below reference range 314519090 R89.1 follow up with urology- pt states he will call for appointmen t with dr khalil [id number] Khadijah Dolan, [address] [address] 02/24/2025 08:00:53 02/24/2025 08:45:55 Body mass index 30+ - obesity 762144465 E66.9 1841688 30 Obesity 214718222 E66.9 Acquired hypothyroidism 222828383 E03.9 01648 labs next visit Type 2 veronika betes mellitus 58393410 E11.22 a1c improved contiune with treatment plan and diet [id number] Khadijah Dolan APRN [facility] [address] [place] [address] 05/25/2025 07:58:59 05/25/2025 09:10:15 Type 2 diabetes mellitus 48150873 E11.22 Overweight in adulthood with body mass index of 25 or more but less than 30 039878471 E66.3 Z68.29 4396025342 630373 Bradycardia 16327661 R00 .1 55573 ekgspoke with alisha, sent to see alisha office at 11 am. Abscess of elbow 9789457 07 L02.413 2047917118 medskeep area clan and dryif worsen or no improvemen t return Testostero ne level below reference range 935824269 R79.89 216529 follow up with urology- Cobalamin deficiency 190 543559 E53.8 167643 Health Concerns Section Related Observation LastModified by Organization Detai ls LastModified Time None Recorded Concern Status LastModified by Organization Details LastModified Time None Recorded Advance Directives Directive N: Payers Insurance Date Sequence Insurance Name Policy Number Policy Laguerre Covered Member ID Laguerre Member ID Guarantor Name 08/22/2025 1 [employer] (MEDICARE REPLACEMENT/A DVANTAGE - PPO) Noe Silvestre [id number] Noe Silvestre Notes Date Note Type Note Provider Name and Address Organization Details Recorded Time 08/25/2024 text/html ROS as noted in the HPI 64 yr old male presents for a [...] his bp being up and down Khadijah Dolan APRN [address], [place], [address], [place] - [facility] 08/25/2024 09:07:05 09/22/2024 text/html ROS as noted in the HPI 64 year old male who presents to the office today for a follow up ontype 2 diabeteshas concerns of blister on right foot, skin falling off heel of right footmed refills on famotidine, vitamin D 50,000iu, atorvastatin, also needs sensors for noemi Khadijah Gilromaine, DAVID [address], [place], [address], [facility] - [facility] 09/22/2024 13:23:33 11/25/2024 text/html ROS as noted in the HPI 64 yr old male presents for a follow up on chronic pain, has been fatigued and states he feels depressed, no si or hi. He needs a refill on pregabalin. He also needs some follow up labs from a low hemaglobin in Sep. also needs a bone scan ordered. Raisazoie DAVID gavin [address], [place], [address], [facility] - [facility] 11/25/2024 14:50:11 02/24/2025 text/html Diabetes [...] states blood sugars have been running 70-110 Raisazoie DAVID gavin [address], [place], [address], [facility] - [facility] 02/24/2025 14:55:08 05/25/2025 text/html Diabetes [...] b12 also with other labs Khadijah Dolan, DAVID [address], [place], [address], [place] - [facility] 05/25/2025 09:15:25
--- OUTSIDE RECORDS SUMMARY | 2025-08-24 14:04 | XMS_ITS | Encounter Summary ---
Author Organization Healthcare Address [address] [place] [address] Care Team Providers Care Machinist General Name Role Phone Nadja Lara MD Primary Care Provider [phone]- [phone] Ministerio Rosas MD Unavailable [phone] Khadijah Dolan APRN Primary Care Provider +1- [phone] Encounter Details Date Type Department Care Team (Late st Contact Info) Description 05/02/2023 Lab Requisition [facility] [address] [place] [address] Zulay Garcia PA [address] [address] Social History Tobacco Use Types Packs/Day Years [...] Info) Description 12/22/2025 8:40 AM EST Appointment [facility] [address] [place] [address] 12/22/2025 10:30 AM EST Office Visit [facility] [address], [address] [place] [address] Ministerio Rosas MD [address] [address] documented as of this encounter Visit Diagnoses Not on filedocumented in this encounter Additional Health Concerns Infection Onset Date Last Indicated 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 documented as of this encounter Care Teams Machinist General Relationship Specialty Start Date End Date Nadja Lara MD [address] [place], [place] [id number] PCP - General 03/04/21 05/03/25 Khadijah Dolan APRN [address] [place], [place] [phone] PCP - General 05/04/25 Ministerio Rosas MD [address] [address] Surgeon Urology 09/23/24 documented as of this encounter
--- OUTSIDE RECORDS SUMMARY | 2025-08-24 14:04 | XMS_ITS | Encounter Summary ---
Author Organization [employer] ([place], [place], [place], [place], [place]) Address [address] [place] [address] Care Team Providers Care Vehicle Maintenance Technician Name Role Phone Unavailable Primary Care Provider Unavailabl e Encounter Details Date Type Department Care Team (Late st Contact Info) Description 10/26/2020 Transcribed Document [facility] Family Medicine [facility] [place] [address] ProviderFarhan MD [address] [place], [place] [id number] Social History Tobacco Use Types Packs/Day Years [...] - Historical ProviderMD - 10/26/2020 9:18 AM PROFESSIONAL BONDSMAN PAT Adult Entered On: 10/26/2020 9:22 EST [...] Source : Estimated Height Entry Format : Stephenson Height, Feet : 5 ft(Converted to: 152 cm, 60 Inch) Height, Inches : 9 Inch(Converted to: 0 ft 9 Inch, 22.86 cm) Clinical Height : 175.26 cm Weight Source : Standing scale Weight Entry Format : Stephenson Clinical Dosing Weight : 106.36 kg Weight, Pounds : 234 lb Body Surface Area (BSA) : 2.21 m2 Body Mass Index : 34.6 kg/m2 (HI) [place] Body Weight : 70 kg Jolene Lino [...] : Yes Spiritual/Cultural Needs Comment : 10/29/20 Latter Day Preference : Lutheran Spiritual/Cultural Needs Comment : 10/29/20 Toni Kirby Rn - 10/26/2020 9:18 EST [place] Suicide Severity Rating Scale (C-SSRS) CSSRS Past [...] RN - 10/29/2020 6:56 EST Support Person/Patient Section Forest Fire Warden : Yes Support Person/Pt Rep Name : Taylor Silvestre - Support Person/Pt Rep Contact Information : [phone] Want Family/Rep/Phys Notified of Admit : No Toni Kirby Rn - 10/26/2020 9:18 EST Emergency Contact #1 : Taylor Konrad Emergency Contact #1 ` Emergency Contact #1 Relationship : ` Jolene Lion Rn - 10/27/2020 10:51 EST Emergency Contact #2 : ` Emergency Contact #2 Phone Number : ` Emergency Contact #2 Relationship : ` Primary Language : Arabic Preferred Communication Mode : Verbal Communication Barrier : None Ethylbenzene Cracking Supervisor Needed : No Toni Kirby Rn - [...]
--- OUTSIDE RECORDS SUMMARY | 2025-08-24 14:04 | XMS_ITS | Encounter Summary ---
Author Organization Healthcare Address [address] [place] [address] Care Team Providers Care Reinstatement Clerk Name Role Phone Nadja Lara MD Primary Care Provider [phone]- [phone] Ministerio Rosas MD Unavailable [phone] Khadijah Dolan APRN Primary Care Provider +1- [phone] Encounter Details Date Type Department Care Team (Late st Contact Info) Description 05/02/2023 Lab Requisition [facility] [address] [place] [address] Zulay Garcia PA [address] [address] Right testicular pain Social History Tobacco Use [...] Info) Description 12/22/2025 8:40 AM EST Appointment [facility] [address] [place] [address] 12/22/2025 10:30 AM EST Office Visit [facility] [address], [address] [place] [address] Ministerio Rosas MD [address] [place] [address] documented as of this encounter Procedures Procedure Name Priority Date/Time Associated Diagnosis Comments SURGICAL PATHOLOGY CONSULT Routine 05/02/2023 2:18 PM EDT Right testicular pain documented in this encounter Results * Surgical Pathology Consult (05/02/2023 2:18 PM EDT) Case Report Sugical Pathology Consult Case: [id number] Authorizing Provider: Zulay Garcia PA Collected: 05/02/2023 1418 Ordering Location: [facility] Lab Received: 05/02/2023 1418 Pathologist: Connor Suarez MD Specimen: Testicle, 05/03/2023 5:33 PM EDT [facility] Final Diagnosis OUTSIDE CASE: COLLECTED ON 03/13/2023. A. TESTICLE AND EPIDIDYMIS, RIGHT, EXCISION: - HYDROCELE B. 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 Received along with a corresponding pathology report from [facility] are 6 slide(s) labeled outside case: collected on 03/13/2023. 05/03/2023 5:33 PM EDT [facility] Note: A resident was involved in the service. I attest I examined the relevant preparations for the specimens and confirmed the diagnosis or interpretation. 05/03/2023 5:33 PM EDT [facility] Tissue Testis structure / Unknown 05/02/2023 2:18 PM EDT 05/02/2023 2:18 PM EDT [facility] PATHOLOGY ORDERABLES Fi nal Result [facility] [address] [place] [address] documented in this encounter Visit Diagnoses Diagnosis Right testicular pain documented in this encounter Additional Health Concerns Infection Onset Date Last Indicated 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 documented as of this encounter Care Teams Reinstatement Clerk Relationship Specialty Start Date End Date Nadja Lara MD [address] [place], [place] [phone] PCP - General 03/04/21 05/03/25 Khadijah Dolan APRN [address] [place] [address] PCP - General 05/04/25 Ministerio Rosas MD [address] [facility] [address] [place] [address] Surgeon Urology 09/23/24 documented as of this encounter
--- OUTSIDE RECORDS SUMMARY | 2025-08-24 14:04 | XMS_ITS | Encounter Summary ---
Author Organization [employer] ([place], [place], [place], [place], [place]) Address [address] [place] [address] Care Team Providers Care Triple Air Valve Tester Name Role Phone Unavailable Primary Care Provider Unavailabl e Encounter Details Date Type Department Care Team (Late st Contact Info) Description 10/29/2020 Transcribed Document [facility] Family Medicine [facility] [place] [address] ProviderFarhan MD [address] [place], [place] [phone] Social History Tobacco Use Types Packs/Day Years [...] - Historical ProviderMD - 10/29/2020 7:06 AM METHODS SPECIALIST Admission History, Adult Entered On: 10/29/2020 19:47 EST Performed On: 10/29/2020 14:00 EST by DARIUS VLEIZ RN Advance Directive Patient has Advance Directive [...] Ambulatory Legal Guardian : Unaccompanied Support Person/Patient Lead Engineer : Yes Support Person/Pt Rep Name : Taylor Silvestre - Support Person/Pt Rep Contact Information : [phone] Want Family/Rep/Phys Notified of Admit : No Emergency Contact #1 : Taylor Konrad Emergency Contact #1 ` Emergency Contact #1 Relationship : ` Emergency Contact #2 : ` Emergency Contact #2 Phone Number : ` Emergency Contact #2 Relationship : ` Primary Language : Bruneian Preferred Communication Mode : Verbal Communication Barrier : None Parcel Post Delivery Needed : No DARIUS VELIZ RN - [...] Scale Risk Level : 25-45 Medium Risk Buckner Fall Interventions : Adequate lighting, Assistive devices [...] Updated: 10/26/2020 09:18:45 EST by Toni Kirby, Gela) Substance Abuse: Drug Use Hx: No. Use in Last 12 Months: No. (Last Updated: 10/26/2020 09:18:45 EST by Toni Kirby, Gela) Height and Weight, Clinical Dosing Height Source : Estimated Height Entry Format : [place]onas Height, Feet : 5 ft(Converted to: 152 cm, 60 Inch) Height, Inches : 9 Inch(Converted to: 0 ft 9 Inch, 22.86 cm) Clinical Height : 175.26 cm Weight Source : Standing scale Weight Entry Format : Toponas Clinical Dosing Weight : 106.36 kg Weight, Pounds : 234 lb Body Surface Area (BSA) : 2.21 m2 Body Mass Index : 34.6 kg/m2 (HI) [place] Body Weight : 70 kg DARIUS VELIZ [...] DARIUS VELIZ RN - 10/29/2020 19:45 EST [place] Suicide Severity Rating Scale (C-SSRS) CSSRS Past [...] 10/29/2020 19:45 EST Electronically signed by Kailey [facility] Conversion Director Corporate Compliance Cerner at 02/08/2023 12:12 PM CDT documented in this encounter Plan of Treatment Not on file documented as of this encounter Visit Diagnoses Not on filedocumented in this encounter
--- OUTSIDE RECORDS SUMMARY | 2025-08-24 14:04 | XMS_ITS | Clinical Summary ---
Author Organization [facility] Address [address] [place] [address] Care Team Providers Care Medical Housekeeper Name Role Phone Ministerio Rosas MD Unavailable Khadijah Dolan APRN Primary Care Provider [phone] Allergies Active Allergy Reactions Criticality Noted Date [...] 23 Active ergocalciferol (Vitamin D-2) 1.25 MG (23839 UT) capsule Active famotidine (Pepcid) 20 MG tablet Take 1 tablet (20 mg) by mouth 1 (one) time each day. Active atorvastatin (Lipitor) 10 MG tablet TAKE 1 TABLET BY MOUTH ONCE A DAY FOR CHOLESTEROL 06/08/20 23 Active fluticasone (Flonase) 50 MCG/ACT nasal spray Administer 2 sprays into each nostril 1 (one) time each day. 03/27/20 23 Active Continuous Blood Gluc Contact Lens Blocker And Cutter (FreeStyle Noemi 3 [place]) device 02/01/20 24 Active Continuous Blood Gluc [...] Type Department Care Team Description 07/29/2025 Refill [facility] [address] [place] [address] Zuleyka Escobedo MD 06/23/2025 10:00 AM EDT Office Visit [facility] [address] Ministerio Rosas MD Urothelial carcinoma of bladder without invasion of muscle (Primary Dx) 06/23/2025 7:57 AM EDT - 06/23/2025 11:59 PM EDT Hospital Encounter [facility] [address], [address] [place] [address] Urothelial carcinoma of bladder without invasion of muscle Discharge Disposition: Home or Self Care 06/23/2025 Travel 06/18/2025 Travel 06/03/[address] [address] Ministerio Rosas MD Confirmed appt 06/02/2025 Orders Only [facility] [address] Kenneth Simpson MD Urothelial carcinoma of bladder without invasion of muscle (Primary Dx) from Last 3 Months Family History Medical [...] Info) Description 12/22/2025 8:40 AM EST Appointment [facility] [address]nd [place] [address] 12/22/2025 10:30 AM EST Office Visit [facility] [address], [address] [place] [address] Ministerio Rosas MD [address] [place] [address] Health Maintenance Due Date Last Done Comments [...] Lung Cancer Screening Shared Decision Making 2012 [id number] Vaccine (3 - Moderna risk series) 03/14/2021 [...] this topic Medical Devices Implanted Type Area Location Manager Device Identifier Shelf Expiration Date Model / [...] 10:23 AM EDT) Case Report Cytology Case: [id number] Authorizing Provider: Ministerio Rosas MD Collected: 06/23/2025 1023 Ordering Location: [facility] Received: 06/23/2025 1049 Pathologist: Sally Sapp MD Specimen: Urine (Voided), VOIDED URINE 06/24/2025 1:59 PM EDT [facility] Final Diagnosis A. VOIDED URINE - NEGATIVE FOR HIGH GRADE UROTHELIAL CARCINOMA 06/24/2025 1:59 PM EDT [facility] at 1359 EDT Clinical History Urothelial Cancer/Hematu jackie 06/24/2025 1:59 PM EDT [facility] Previous Cancer Yes 1:59 PM EDT [facility] Previous Cancer Primary Site Bladder Cancer 06/24/2025 1:59 PM EDT [facility] Gross Description A. VOIDED URINE 70 ml's yellow fluid processed as thin prep 06/24/2025 1:59 PM EDT [facility] Urine Voided urine specimen / Unknown Non-blood Collection / Unknown 06/23/2025 10:23 AM EDT 06/23/2025 10:49 AM EDT us Ministerio Rosas MD LAB CYTOLOGY ORDERABLES Final Result [facility] [address] [place] [address] * POCT URINALYSIS DIPSTICK (06/23/2025 9:55 AM EDT) POCT Urine Color Yellow 06/23/2025 9:57 AM EDT [facility] POCT Urine Clarity Clear 06/23/2025 9:57 AM EDT [facility] POCT Urine Glucose Negative Negative mg/dL 06/23/2025 9:57 AM EDT [facility] POCT Urine Bilirubin Negative Negative mg/dL 06/23/2025 9:57 AM EDT [facility] POCT Urine Ketones Negative Negative mg/dL 06/23/2025 9:57 AM EDT [facility] POCT Urine Specific [place] 1.010 1.005 - 1.030 06/23/2025 9:57 AM EDT [facility] UROLOG[facility] POCT Urine Blood Negative Negative 06/23/2025 9:57 AM EDT [facility] POCT pH, Urine 6.0 5.0 - 8.0 06/23/2025 9:57 AM EDT [facility] POCT Protein, Urine Negative Negative mg/dL 06/23/2025 9:57 AM EDT [facility] POCT Urobilinogen, Urine 0.2 0.2, 1.0 EU/dL 06/23/2025 9:57 AM EDT [facility]OLOG[facility] POCT Nitrite, Urine Negative Negative 06/23/2025 9:57 AM EDT [facility] POCT Urine Leukocyte Esterase Negative Negative 06/23/2025 9:57 AM EDT [facility] Urine 06/23/2025 9:55 AM EDT 06/23/2025 9:57 AM EDT us Ministerio Rosas MD LAB POINT OF CARE TE ST DOCKED DEVICE UNSOLICITED RESULTS Final Result Performing Organization Address City/State/[facility] Co de Phone Number [facility] [address] [place], [place] * CT Urogram (06/23/2025 8:30 AM [...] following split bolus administration of IV contrast, [id number], 150 mL. Reformatted images in the coronal [...] scanner: Siemens Biograph 40 mCT. PET/CT acquisition: Qwoqbb-mu-fov-thighs. Standardized uptake value (SUV): Corrected for body weight only. CT: Low-dose, miw-frcozz-zqow, without intravenous contrast. TOTAL DLP (Dose Length [...] scanner: Siemens Biograph 40 mCT. PET/CT acquisition: Fmfibv-jk-hpi-thighs. Standardized uptake value (SUV): Corrected for body weight only. CT: Low-dose, cui-adqwew-gkal, without intravenous contrast. TOTAL DLP (Dose Length [...] Patient has decision-making capacity? Yes Care Teams Medical Housekeeper Relationship Specialty Start Date End Date Khadijah Dolan APRN [address] [phone] PCP - General 05/04/25 Ministerio Rosas MD [address] [place] [address] [phone] (work) Surgeon Urology 09/23/24
--- OUTSIDE RECORDS SUMMARY | 2025-08-24 14:04 | XMS_ITS | Encounter Summary ---
Author Organization [employer] ([place], [place], [place], [place], [place]) Address [address] [place] [address] Care Team Providers Care Special Education Itinerant Teacher Name Role Phone Unavailable Primary Care Provider Unavailabl e Encounter Details Date Type Department Care Team (Late st Contact Info) Description 10/28/2020 Transcribed Document [facility] Family Medicine [facility] [place] [address] ProviderFarhan MD [address] [place] [address] Social History Tobacco Use Types [...] - Historical ProviderMD - 10/28/2020 1:52 PM MANAGER LAN UM Authorization Entered On: 10/28/2020 13:54 EST Performed On: 10/28/2020 13:52 EST by ROLF LUDWIG, RN-Utilization Review Primary Insurance Authorization Authorization and Policy Numbers : Insurance 1 Health Plan: [employer] CHOICE PPO Policy Number: [id number] Authorization Number: Insurance Primary Name : [employer] Choice [id number] Auth/Referral Contact Name-Primary : Alfredo Casas Authorization [...] or availity as of yet (DERICK SHIPMAN, Packaging Designer 10/28/2020 12:39) ROLF LUDWIG, RN-Utilization Review - 10/28/2020 13:52 EST Electronically signed by [facility] Conversion Wax Blender Cerner at 02/08/2023 12:33 PM CDT documented in this encounter Plan of Treatment Not on file documented as of this encounter Visit Diagnoses Not on filedocumented in this encounter
--- OUTSIDE RECORDS SUMMARY | 2025-08-24 14:04 | XMS_ITS | Patient Health Record ---
Author Organization [facility] Address [address] [place] [address] Care Team Providers Care Service Secretary Name Role Phone Khadijah Hanna APRN, Mem Primary Care Provider Unavailable Roger Keen II Unavailable [phone] [place] -Driller Helper David DUKE Unavailable Unavailable Allergies Allergen (clinical [...] W/U Status Risk Notes Problem Rheumatoid arthritis (56359901) Rheumatoid arthritis, unspecified (M06.9) Active confirmed Problem Osteoarthritis (005630399) Unspecified osteoarthritis, unspecified site (M19.90) Active confirmed Problem Solitary sacroiliitis (216242350) Sacroiliitis, not elsewhere classified (M46.1) Active confirmed Problem Lumbosacral spondylosis without myelopathy (42913889) Spondylosis without myelopathy or radiculopathy, lumbar region (M47.816) Active confirmed Problem Lumbar radiculopathy (178017152) Radiculopathy, lumbar region (M54.16) Active confirmed Problem Enthesopathy of hip region (00325972) Trochanteric bursitis, unspecified hip (M70.60) Active confirmed Problem Long-term current use of drug therapy (282472403) Other vermin exterminator (current) drug therapy (Z79.899) Active confirmed Plan Of Treatment No Information Insurance Providers Payer Name Payer Address Payer Phone Subscriber Number Group Number Insured Name Patient Relationship to Insured Coverage Start Date Coverage End Date [employer] Medicare HMO [id number] [address] [address] [place] [address] [phone] [id number] Noe Silvestre Self - patient is the [...] Oncology Surgical History Surgery Date(Month/Year) Lumbar spine [place] 3 days stay 20 21 Hydroseal/ [facility] 10/2022 shoulder/ Bicep/ Dr. Wu/ [facility] 01/2016 [facility]/2014, kidney/ [facility] ([facility]) 2016 right elbow/ [facility] /unknown unknown right index finger/ [facility] unk nown carpal tunnel release [facility] /unknown 1990s appendectomy/ [facility] /unknow n 09/1997 Hospitalization History Reason Date(Month/Year)
--- OUTSIDE RECORDS SUMMARY | 2025-08-24 14:04 | XMS_ITS | Encounter Summary ---
Author Organization Healthcare Address [address] [place] [address] Care Team Providers Care Manager Search Name Role Phone Nadja Lara MD Primary Care Provider [phone] Ministerio Rosas MD Unavailable [phone] Khadijah Dolan APRN Primary Care Provider [phone] Encounter Details Date Type Department Care Team (Late st Contact Info) Description 03/05/2023 Orders Only External Location [address] [place] [address] Yared Salagdo MD [address] [place] [address] Social History Tobacco Use Types Packs/Day Years [...] Info) Description 12/22/2025 8:40 AM EST Appointment [facility] [address] [place] [address] 12/22/2025 10:30 AM EST Office Visit [facility] [address] [place] [address] Ministerio Rosas MD [address] [place] [address] documented as of this encounter Procedures Procedure [...] as of this encounter Care Teams Manager Search Relationship Specialty Start Date End Date Nadja Lara MD [address] [place] [address] [phone] PCP - General 03/04/21 05/03/25 Khadijah Dolan APRN [address] [place] [id number] PCP - General 05/04/25 Ministerio Rosas MD [address] [facility] [address] [place] [address] Surgeon Urology 09/23/24 documented as of this encounter
--- OUTSIDE RECORDS SUMMARY | 2025-08-24 14:04 | XMS_ITS | Encounter Summary ---
Author Organization [employer] ([place], [place], [place], [place], [place]) Address [address] [place] [address] Care Team Providers Care Data Warehouse Specialist Name Role Phone Unavailable Primary Care Provider Unavailabl e Encounter Details Date Type Department Care Team (Late st Contact Info) Description 11/01/2020 Transcribed Document [facility] [place] [facility] [place] [address] ProviderFarhan MD [address] [place] [address] Social History Tobacco Use Types [...] - Historical ProviderMD - 11/01/2020 3:33 PM NETWORK CABLER UM Authorization Entered On: 11/01/2020 15:33 EST Performed On: 11/01/2020 15:33 EST by TAQUERIA AGRAWAL Mkt Director Franchise Sales-Utilization Mgt Primary Insurance Authorization Authorization and Policy Numbers : Insurance 1 Health Plan: [employer] PPO Policy Number: [id number] Authorization Number: Insurance Primary Name : [place] [id number] Authorization Status-Primary : Admit approved Auth/Referral Contact Name-Primary : Alfredo Casas Reference Number-Primary : [id number] Authorization Number-Primary : [id number] Number of Days Authorized-Primary : 5 Day(s) [...] or availity as of yet (DERICK SHIPMAN, Visual Coordinator 10/28/2020 12:39) TAQUERIA AGRAWAL Mkt Director Franchise Sales-Utilization Mgt - 11/01/2020 15:33 EST Electronically signed by Kailey [facility] Conversion Lead Generation Representative Cerner at 02/08/2023 12:13 PM CDT documented in this encounter Plan of Treatment Not on file documented as of this encounter Visit Diagnoses Not on filedocumented in this encounter
--- OUTSIDE RECORDS SUMMARY | 2025-08-24 14:04 | XMS_ITS | Referral Summary ---
Author Organization [employer] ([place], [place], [place], [place], [place]) Address [address] [place] [address] Care Team Providers Care Mill Supervisor Name Role Phone Unavailable Primary Care [...] Date Keyon rded Speak language other than Hungarian at home Not on file 10/30/2023 Want [...]
--- OUTSIDE RECORDS SUMMARY | 2025-08-24 14:05 | XMS_ITS | Encounter Summary ---
Author Organization [employer] ([place], [place], [place], [place], [place]) Address [address] [place] [address] Care Team Providers Care Casting Wheel Operator Helper Name Role Phone Unavailable Primary Care Provider Unavailabl e Encounter Details Date Type Department Care Team (Late st Contact Info) Description 10/29/2020 Transcribed Document [facility] [place] [facility] [place] [address] ProviderFarhan MD [address] [place] [id number] Social History Tobacco Use Types Packs/Day Years [...] - Historical ProviderMD - 10/29/2020 10:34 AM DIRECTOR OF DIRECT MARKETING Evaluation, Physical Therapy Entered On: 10/29/2020 15:22 EST Performed On: 10/29/2020 14:05 EST by KATINA LIANG, KIARA General Information, PT Visit Type, PT : Initial evaluation Patient Orders : Order Date Order Ordering 10/29/2020 10:34 Physical Therapy Eval and Treat Ordered By: ADDIE VELIZ MD-[facility] Active Diagnoses : No Qualifying Diagnoses Therapy [...] KATINA LIANG, PT - 10/29/2020 15:23 EST Morning News Producer Goals Mobility/Bed Mobility LTG PT Grid Goal #1 Goal #2 Activity : Supine to sit Sit to stand Assist : Independent, complete Independent, modified Equipment : Walker, front wheel Date to Meet : 11/05/2020 EST 11/05/2020 EST Goal Status : Intial Goal Intial Goal AZULMERARIEN, PT - 10/29/2020 15:23 EST KATINA LIANG, [...] 11/05/2020 EST Goal Status : Intial Goal AZULMERARIEN, PT - 10/29/2020 15:23 EST Treatment Note [...] : Home, with home health (Comment: S1 [AKTINA LIANG, PT - 10/29/2020 15:23 EST] ) KATINA LIANG, PT - 10/29/2020 15:23 EST [place] PT Charges PT Therap. Exercise 15 min : 1 PT Eval Low Complexity : 1 KATINA LIANG, PT - 10/29/2020 15:23 EST Electronically signed by [facility], [facility] Conversion B2B Sales Manager Vitorner at 02/08/2023 12:22 PM CDT documented in this encounter Plan of Treatment Not on file documented as of this encounter Visit Diagnoses Not on filedocumented in this encounter
--- OUTSIDE RECORDS SUMMARY | 2025-08-24 14:05 | XMS_ITS | Patient Health Record ---
Author Organization [facility] Address [address] [place] [address] Care Team Providers Care Water Resource Engineering Specialist Name Role Phone [place] -Rodbuster David DUKE Unavailable Unavailable Allergies Allergen (clinical [...] W/U Status Risk Notes Problem Rheumatoid arthritis (77636382) Rheumatoid arthritis, unspecified (M06.9) Active confirmed Problem Osteoarthritis (369484681) Unspecified osteoarthritis, unspecified site (M19.90) Active confirmed Problem Solitary sacroiliitis (059742862) Sacroiliitis, not elsewhere classified (M46.1) Active confirmed Problem Lumbosacral spondylosis without myelopathy (04465936) Spondylosis without myelopathy or radiculopathy, lumbar region (M47.816) Active confirmed Problem Lumbar radiculopathy (144079783) Radiculopathy, lumbar region (M54.16) Active confirmed Problem Enthesopathy of hip region (32296455) Trochanteric bursitis, unspecified hip (M70.60) Active confirmed Problem Long-term current use of drug therapy (579518349) Other detention (current) drug therapy (Z79.899) Active confirmed Plan Of Treatment Pending Test Test Name Order Date Urine Test LCMS Definitive 11/02/2023 Insurance Providers Payer Name Payer Address Payer Phone Subscriber Number Group Number Insured Name Patient Relationship to Insured Coverage Start Date Coverage End Date [employer] Medicare HMO 32568 [address] [address] [place] [address] [phone] [id number] Noe Silvestre Self - patient is the [...] by unknown Surgical History Surgery Date(Month/Year) appendectomy/ [facility] /unknow n 09/1997 carpal tunnel release [facility] /unknown 1990s right index finger/ [facility] unk nown right elbow/ [facility] /unknown unknown kidney/ [facility] (OP) 2016 lumbar spine fusion/ [facility]/ Dr. Green 3 day stay 03/2014, shoulder/ Bicep/ Dr. Wu/ [facility] ar[facility] 01/2016 [facility] Lumbar spine [place] 3 days stay 20 21 Hospitalization History Reason Date(Month/Year)
--- OUTSIDE RECORDS SUMMARY | 2025-08-24 14:05 | XMS_ITS | Encounter Summary ---
Author Organization [employer] ([place], [place], [place], [place], [place]) Address [address] [place] [address] Care Team Providers Care Printing Pressman Name Role Phone Unavailable Primary Care Provider Unavailabl e Encounter Details Date Type Department Care Team (Late st Contact Info) Description 10/30/2020 Transcribed Document [facility] [place] [facility] [place] [address] ProviderFarhan MD [address] [place], [place] [id number] Social History Tobacco Use Types Packs/Day Years [...] - Farhan ProviderMD - 10/30/2020 6:00 AM RETAIL PLANNING MANAGER Pain Assessment Entered On: 10/30/2020 20:01 [...]
--- OUTSIDE RECORDS SUMMARY | 2025-08-24 14:05 | XMS_ITS | Encounter Summary ---
Author Organization [employer] ([place], [place], [place], [place]) Address [address] [place] [address] Care Team Providers Care Manufacturing Quality Manager Name Role Phone Unavailable Primary Care Provider Unavailabl e Encounter Details Date Type Department Care Team (Late st Contact Info) Description 10/29/2020 Transcribed Document [facility] Radiology [address] [place] [address] Vicente Orr MD [facility] [address] [address] Social History Tobacco Use Types [...] 100 mg intravenous injection 1 Infusion, IntraVENous, [id number] Jardiance 25 mg oral tablet 25 mg [...]
--- OUTSIDE RECORDS SUMMARY | 2025-08-24 14:05 | XMS_ITS | Encounter Summary ---
Author Organization [employer] ([place], [place], [place], [place]) Address [address] [place] [address] Care Team Providers Care Machine Grainer Name Role Phone Unavailable Primary Care Provider Unavailabl e Encounter Details Date Type Department Care Team (Late st Contact Info) Description 10/29/2020 Transcribed Document [facility] [place] [facility] [place] [address] ProviderFarhan MD [address] [place] [id number] Social History Tobacco Use Types Packs/Day Years [...] - Historical ProviderMD - 10/29/2020 12:20 PM PAINT DEPARTMENT SUPERVISOR Meds to Bed Enrollment Entered On: 10/29/2020 12:21 EST Performed On: 10/29/2020 12:20 EST by Matty Hoover, FIBER OPTIC ASSEMBLY WORKER LEAD Meds to Bed Enrollment Patient Enrollment Decision: : Yes/enroll in meds to bed program Matty Hoover FIBER OPTIC ASSEMBLY WORKER LEAD - 10/29/2020 12:21 EST documented in this encounter Plan of Treatment Not on file documented as of this encounter Visit Diagnoses Not on filedocumented in this encounter
--- OUTSIDE RECORDS SUMMARY | 2025-08-24 14:05 | XMS_ITS | Encounter Summary ---
Author Organization [employer] ([place], [place], [place], [place]) Address [address] [place] [address] Care Team Providers Care Belt Puncher Name Role Phone Unavailable Primary Care Provider Unavailabl e Encounter Details Date Type Department Care Team (Late st Contact Info) Description 10/30/2020 Transcribed Document [facility] [place] [facility] [place] [address] ProviderFarhan MD [address] [place] [address] Social History Tobacco Use Types [...] - Historical ProviderMD - 10/30/2020 10:50 AM CRYSTAL GAZER UM Authorization Entered On: 10/30/2020 10:50 EST Performed On: 10/30/2020 10:50 EST by Ca Amaya Rn-Utilization Review Primary Insurance Authorization Authorization and Policy Numbers : Insurance 1 Health Plan: [employer] PPO Policy Number: [id number] Authorization Number: Insurance Primary Name : [employer] [id number] Authorization Status-Primary : Pending Auth/Referral Contact Name-Primary : Alfredo Casas Reference Number-Primary : [id number] Authorization Number-Primary : Pending, No Notes in [...] or availity as of yet (DERICK SHIPMAN, Remodeler 10/28/2020 12:39) Ca Amaya, Rn-Utilization Review - 10/30/2020 10:50 EST Electronically signed by Kailey, [facility] Conversion Auger Mill Operator Cerner at 02/08/2023 12:35 PM CDT documented in this encounter Plan of Treatment Not on file documented as of this encounter Visit Diagnoses Not on filedocumented in this encounter
--- OUTSIDE RECORDS SUMMARY | 2025-08-24 14:05 | XMS_ITS | Encounter Summary ---
Author Organization [employer] ([place], [place], [place], [place], [place]) Address [address] [place] [address] Care Team Providers Care Gallery Or Museum Curator Name Role Phone Unavailable Primary Care Provider Unavailabl e Encounter Details Date Type Department Care Team (Late st Contact Info) Description 10/29/2020 Transcribed Document [facility] [place] [facility] [place] [address] ProviderFarhan MD [address] [place] [address] Social History Tobacco Use Types [...] - Historical ProviderMD - 10/29/2020 10:34 AM CHEMICAL EQUIPMENT CONTROLLER Evaluation, Occupational Therapy Entered On: 10/29/2020 15:00 [...] L4-l5 Lumbar fusion W/ Brace CONNOR WALTON OTR/Desiree - 10/29/2020 14:54 EST General Status Patient Received Status : Supine in bed Treatment Start Time : 10/29/2020 13:42 EST Patient Left Status : Supine in bed, RN/PCT informed, Family/Visitors at bedside, All needs met and within reach RN/PCT Informed Comment : DAE webster/fawn Treatment End Time : 10/29/2020 14:05 EST Treatment Time : 23 Minute(s) CONNOR WALTON OTR/L - 10/29/2020 14:54 EST History and Environment, [...] Level : Supervision or set-up CONNOR WALTON OTR/L - 10/29/2020 14:54 EST Functional Mobility Mobility Grid Supine to Sit : Supervision/set-up Sit to Stand : Supervision/set-up Bed to Chair : Supervision/set-up Stand to Sit : Supervision/set-up OCNNOR WALTON OTR/L - 10/29/2020 14:54 EST Cognition Assessment, OT Orientation : Oriented x 4 CONNOR WALTON OTR/L - 10/29/2020 14:54 EST Indication Assessment, OT [...] CONNOR WALTON OTR/Desiree - 10/29/2020 14:54 EST Group Home Goals, OT Bathing LTG Grid Goal #1 [...] - 10/29/2020 14:54 EST Electronically signed by [facility], [facility] Conversion Retail Support Manager Cerner at 02/08/2023 12:33 PM CDT documented in this encounter Plan of Treatment Not on file documented as of this encounter Visit Diagnoses Not on filedocumented in this encounter
--- OUTSIDE RECORDS SUMMARY | 2025-08-24 14:05 | XMS_ITS | Encounter Summary ---
Author Organization [employer] ([place], [place], [place], [place], [place]) Address [address] [place] [address] Care Team Providers Care Fagot Heater Name Role Phone Unavailable Primary Care Provider Unavailabl e Encounter Details Date Type Department Care Team (Late st Contact Info) Description 10/29/2020 Transcribed Document [facility] [place] Family Medicine [facility] [place] [address] ProviderFarhan MD [address] [place] [address] Social History Tobacco Use Types [...] - Farhan ProviderMD - 10/29/2020 8:39 AM AIRBORNE AND AIR DELIVERY SPECIALIST [facility] Main OR IntraOp Summary Primary Physician: ADDIE VELIZ MD-SNU Finalized Date/Time: 10/30/20 16:24:05 Pt. Name: FRANSISCO CRAVEN/Sex: 1960 Male Med Rec #: [id number] Physician: ADDIE VELIZ MD-SNU Financial #: [id number] Pt. Type: I Room/Bed: [facility]/ Admit/Disch: 10/29/20 12:20:00 - Institution: [facility] IntraOp Case Attendance Entry 1 Entry 2 Entry 3 Case Attendee ADDIE VELIZ MD-SNU WASSON, SANDRA D, RN HICKAM, TYLER-LIESE, RN Role Performed Surgeon/Proceduralist, Railway Patrol Officer, First Railway Patrol Officer, Second First Time In 10/29/20 08:13:00 10/29/20 08:13:00 10/29/20 08:13:00 Time Out 10/29/20 10:35:00 10/29/20 10:35:00 10/29/20 10:35:00 Procedure Lumbar Fusion Posterior Lumbar Fusion Posterior Lumbar Fusion Posterior 3 Level 3 Level 3 Level Other Attendee ORIENTEE Superficial Wound Closed By: Last Modified By: TAE HERNANDEZ, RN TAE HERNANDEZ, RN TAE HERNANDEZ, RN 10/29/20 10:35:34 10/29/20 10:35:34 10/29/20 07:40:24 Entry 4 Entry 5 Entry 6 Case Attendee RAFAEL HAAS ST SIEGRIST, MEGHAN, PA ARRINGTON, ASHLEY, APRN Role Performed Scrub, First Physician assistant inventory manager CLINICAL PSYCHOLOGY PROFESSOR/Nurse Product Safety Engineer Time In 10/29/20 08:13:00 10/29/20 08:13:00 10/29/20 08:13:00 Time Out 10/29/20 10:35:00 10/29/20 10:35:00 10/29/20 10:35:00 Procedure Lumbar Fusion Posterior Lumbar Fusion Posterior Lumbar Fusion Posterior 3 Level 3 Level 3 Level Other Attendee Superficial Wound Closed By: Last Modified By: TAE HERNANDEZ, TAE BARRIOS, RN TAE HERNANDEZ, RN 10/29/20 10:35:34 10/29/20 10:35:34 10/29/20 10:35:34 Entry 7 Entry 8 Entry 9 Case Attendee Delma Escobedo, OTHER, ATTENDEE #1 ROCIO ALCALA RN Diagnostic Assistant County Engineer Role Performed Bank Runner Vendor Railway Patrol Officer, Second Time In 10/29/20 08:13:00 10/29/20 08:13:00 10/29/20 08:35:00 Time Out 10/29/20 10:35:00 10/29/20 10:35:00 10/29/20 08:45:00 Procedure Lumbar Fusion Posterior Lumbar Fusion Posterior Lumbar Fusion Posterior 3 Level 3 Level 3 Level Other Attendee FRANC KONG Superficial Wound Closed By: Last Modified By: TAE HERNANDEZ, RN TAE HERNANDEZ, RN TAE HERNANDEZ, RN 10/29/20 10:35:34 10/29/20 08:31:47 10/29/20 08:40:39 Entry 10 Entry 11 Case Attendee PROMISE ZAMORANO Sawyer, Susan, REPRODUCTION PRODUCTION MANAGER-GENI Converter Skimmer Role Performed CLINICAL PSYCHOLOGY PROFESSOR/Nurse Product Safety Engineer Bank Runner Time In 10/29/20 09:43:00 10/29/20 09:44:00 Time Out 10/29/20 09:55:00 10/29/20 10:14:00 Procedure Lumbar Fusion Posterior Lumbar Fusion Posterior 3 Level 3 Level Other Attendee CLINICAL PSYCHOLOGY PROFESSOR BREAK RELIEF RT BREAK RELIEF Superficial Wound Closed By: Last Modified By: TAE HERNANDEZ, TAE BARRIOS, RN 10/29/20 09:44:46 10/29/20 09:44:46 [facility] IntraOp Case Attendance Audit 10/29/20 10:35:34 Gettering Operator: WASSONSY Modifier: WASSONSY 1 <+> Time [...] Lumbar Fusion Posterior 3 Level 10/29/20 10:19:58 Gettering Operator: WASSONSY Modifier: WASSONSY 7 <-> Time Out 10/29/20 09:44:00 7 <*> Procedure Lumbar Fusion Posterior 3 Level 11 <+> Time Out 11 <*> Procedure Lumbar Fusion Posterior 3 Level 10/29/20 10:11:32 Gettering Operator: WASSONSY Modifier: WASSONSY 7 <+> Time Out 7 <*> Procedure Lumbar Fusion Posterior 3 Level 10/29/20 09:55:51 Gettering Operator: WASSONSY Modifier: WASSONSY 10 <*> Time Out 10/29/20 10:03:00 10 <*> Procedure Lumbar Fusion Posterior 3 Level 10/29/20 09:44:46 Gettering Operator: WASSONSY Modifier: WASSONSY <+> 10 Case Attendee <+> 10 Role Performed <+> 10 Time In <+> 10 Time Out <+> 10 Procedure <+> 10 Other Attendee <+> 11 Case Attendee <+> 11 Role Performed <+> 11 Time In <+> 11 Procedure <+> 11 Other Attendee 10/29/20 08:40:39 Gettering Operator: WASSONSY Modifier: WASSONSY <+> 9 Case Attendee <+> 9 Role Performed <+> 9 Time In <+> 9 Time Out <+> 9 Procedure 10/29/20 08:39:35 Gettering Operator: WASSONSY Modifier: WASSONSY 1 <*> Procedure [...] Lumbar Fusion Posterior 3 Level 10/29/20 08:31:47 Gettering Operator: WASSONSY Modifier: WASSONSY 1 <+> Time [...] <+> 8 Procedure <+> [address] [facility] IntraOp Case Times Entry 1 Patient In Room Time 10/29/20 08:13:00 Out Room Time 10/29/20 10:35:00 Anesthesia Start Time 10/29/20 08:13:00 Stop Time 10/29/20 10:35:00 Surgery / Procedure Times Start Time 10/29/20 08:39:00 Stop Time 10/29/20 10:27:00 Last Modified By: TAE HERNANDEZ RN 10/29/20 10:28:15 [facility] IntraOp Case Times Audit 10/29/20 10:35:30 Gettering Operator: WASSONSY Modifier: WASSONSY <+> 1 Out Room Time <+> 1 Stop Time 10/29/20 10:28:15 Gettering Operator: WASSONSY Modifier: WASSONSY <+> 1 Stop Time 10/29/20 08:39:38 Gettering Operator: WASSONSY Modifier: WASSONSY <+> [address] [facility] IntraOp Cautery Entry 1 Entry 2 ESU Identification Cautery Type Monopolar ESU BiPolar ESU Cautery Type Comments ID Number [id number] ID Type Hospital Number Hospital Number Cautery [...] SANDRA D, RN 10/29/20 08:47:23 10/29/20 08:47:23 [facility] IntraOp Cautery Audit 10/29/20 08:49:38 Gettering Operator: HOPEMANPREET Modifier: WASSONSY 1 <+> Grounding Pad Site 1 <*> Grounding Pad Applied By TAE HERNANDEZ RN [facility] IntraOp Communication Entry 1 Communication To Family/Significant other Comment START Communication By ROCIO ALCALA RN Date and Time 10/29/20 08:40:00 Last Modified By: TAE HERNANDEZ RN 10/29/20 08:40:48 [facility] IntraOp Counts Verification Entry 1 Entry [...] SANDRA D, RN 10/29/20 08:30:57 10/29/20 10:20:15 [facility] IntraOp Counts Verification Audit 10/29/20 10:20:15 Gettering Operator: WASSONSY Modifier: WASSONSY <+> 2 Procedure <+> 2 Count Type <+> 2 Counts Verification Sequence <+> 2 Count Results <+> 2 Count Performed By (Scrub) <+> 2 Count Performed By (RN) [facility] IntraOp Counts Final Entry 1 Procedure Lumbar Fusion Posterior 3 Level Final Count Info Count Type Sponge, Sharps, Miscellaneous Counts Verification Skin Closure/end of Sequence procedure Count Results Correct, surgeon notified Counts Performed By Count Performed By RAFAEL HAAS ST (Scrub) Count Performed By CLARI NORRIS RN (RN) Last Modified By: TAE HERNANDEZ RN 10/29/20 10:24:34 [facility] IntraOp Cultures and Spec Summary Entry 1 Cultrures and Specimens Specimen Ordered: Yes Test(s) Routine/Path-Lab Requested/Final Disposition Last Modified By: TAE HERNANDEZ RN 10/29/20 09:15:02 General Comments: A. EXPLANTED HARDWARE [facility] IntraOp Delays Entry 1 Delay Reason Surgeon late - did not call Duration 13 Minute(s) Last Modified By: TAE HERNANDEZ RN 10/29/20 08:50:02 [facility] IntraOp Departure from OR Entry 1 Integumentary Assessment Integumentary WDL Assessment WDL Transfer/Handoff Transfer to PACU Phase I Handoff Method Phone call Handoff Reported to Gabo Lim RN Post-op Transport Stretcher/Marilyn Via Patient Transport KAREN PEREA, Accompanied by MARY HERNANDEZ MEGHAN, PA Last Modified By: TAE HERNANDEZ RN 10/29/20 10:12:58 [facility] IntraOp Departure from OR Audit 10/29/20 10:12:58 Gettering Operator: WASSONSY Modifier: WASSONSY <+> 1 Handoff Reported to 10/29/20 08:50:26 Gettering Operator: WASSONSY Modifier: WASSONSY 1 <*> Post-op Transport Via Bed (including specialty) [facility] IntraOp Drains and Tubes Entry 1 Device Type Alcon Engel round drain Size 15 FR Drain/Tube Activity Inserted Drain/Tube Suction Bulb Drain/Tube Drainage Serosanguineous Device Location OP SITE Method of Drainage Compression Last Modified By: TAE HERNANDEZ RN 10/29/20 10:09:39 [facility] IntraOp Dressing and Packing Entry 1 Type Dressing Location back Wound Dressing Item Other Applied By CIRO HERNANDEZ PA Other Comments NEOSPORIN OINTMENT, COVADERMS Last Modified By: TAE HERNANDEZ RN 10/29/20 09:41:56 [facility] IntraOp Fire Risk Assessment Entry 1 Fire Info Surgical Site or 0- No Incision Above the Xyphoid Open O2 Source 0- No (Mask or Cannula) Available Ignition 1- Yes (ESU, Laser, Light Source) Fire Risk 1 Assessment Score Fire Score Fire Risk Yes Assessment Complete Fire Risk TAE HERNANDEZ body finisher Verified By Fire Risk 10/29/20 08:42:00 Assessment Verified Date/Time Fire Risk Standard Fire Yes Safety Precautions Followed Last Modified By: TAE HERNANDEZ RN 10/29/20 08:42:30 [facility] IntraOp General Case Stone Layout Marker 1 Case Information OR OR 10 [facility] Case Level 1 Room Verified Yes Wound Class I - Clean Specialty SN Neurosurgery Anesthesia Type General ASA Class 3 Diagnosis Preop Diagnosis LUMBAR SPONDYLOLISTHESIS Postop Same As Preop No Postop Diagnosis PLEASE SEE MD NOTES. Last Modified By: TAE HERNANDEZ RN 10/29/20 08:45:22 [facility] IntraOp General Case Data Audit 10/29/20 08:51:32 Gettering Operator: WASSONSY Modifier: WASSONSY 1 <*> Preop Diagnosis LUMBAR STENOSIS 10/29/20 08:46:36 Gettering Operator: WASSONSY Modifier: WASSONSY <+> [address] [facility] IntraOp Implant Log Entry 1 Entry 2 Entry 3 Type Tissue Implant Implant (Synthetic) Implant (Synthetic) (Biologic) Implant Log Implant Type Hardware Hardware Tissue Implant Type Bone Implant BONE VIVIGEN FORMABLE SPACR OPAL-RSLV SCR JEREMIAS FIX Identification CELL [id number] Description Implant Quantity 1 2 4 Implant Site OP SITE OP SITE OP SITE Implant Identification Model Number Implant [id number] Identification Serial Number Implant Identification Lot Number Implant Lifenet:Lifenet Synthes:Synthes J&J:Depuy:Depuy Spine Identification Transplant Srv Usa:Spine Trigonometry Teacher Name: Implant [id number] Identification Catalog Number Implant Size Implant Has an Yes Expiration Date Implant Expiration 09/30/21 Date Wasted Radioactive Material Time Implanted Tissue Implant Continue for Tissue Implant Documentation Tissue Identification Number Graft Prep Per Trigonometry Teacher Instructions: Tissue Preparation Method: Reconstitution Solution: Reconstitution Solution Lot Number Reconstitution Solution Expiration Date: Thawing Solution Thawing Solution Lot Number Thawing Solution Expiration Date Preparation Materials, Other Preparation Materials, Other Lot Number Preparation Materials, Other Expiration Date Tissue Prepared/Processed By Trigonometry Teacher Paperwork Completed Implant Type Comment Last Modified By: TAE HERNANDEZ, TAE BARRIOS RN WASSON, SANDRA D, RN 10/29/20 09:41:23 10/29/20 10:03:44 10/29/20 10:03:44 Entry 4 Entry 5 Entry 6 Type Implant (Synthetic) Implant (Synthetic) Implant (Synthetic) Implant Log Implant Type Hardware Hardware Hardware Tissue Implant Type Implant MIS FELA PLY SCRW SET LENNOX PRE LOAD [id number] LENNOX PRE LOAD [id number] Identification [id number] Description Implant Quantity 6 1 1 Implant Site OP SITE OP SITE OP SITE Implant Identification Model Number Implant Identification Serial Number Implant Identification Lot Number Implant J&J:Depuy:Depuy Spine J&J:Depuy:Depuy Spine J&J:Depuy:Depuy Spine Identification Trigonometry Teacher Name: Implant [id number] Identification Catalog Number Implant Size Implant Has an Expiration Date Implant Expiration Date Wasted Radioactive Material Time Implanted Tissue Implant Continue for Tissue Implant Documentation Tissue Identification Number Graft Prep Per Trigonometry Teacher Instructions: Tissue Preparation Method: Reconstitution Solution: Reconstitution Solution Lot Number Reconstitution Solution Expiration Date: Thawing Solution Thawing Solution Lot Number Thawing Solution Expiration Date Preparation Materials, Other Preparation Materials, Other Lot Number Preparation Materials, Other Expiration Date Tissue Prepared/Processed By Trigonometry Teacher Paperwork Completed Implant Type Comment Last Modified By: TAE HERNANDEZ, TAE BARRIOS, RN TAE HERNANDEZ RN 10/29/20 10:03:44 10/29/20 10:03:44 10/29/20 10:03:44 [facility] IntraOp Implant Log Audit 10/29/20 10:03:44 Gettering Operator: HOPEIANARLEN Modifier: WASSONSY <+> 2 Implant Identification Description <+> 2 Implant Identification Trigonometry Teacher Name: <+> 2 Implant Site <+> 2 Implant Quantity <+> 2 Implant Identification Catalog Number <+> 2 Implant Type <+> 2 Type <+> 3 Implant Identification Description <+> 3 Implant Identification Trigonometry Teacher Name: <+> 3 Implant Site <+> 3 Implant Quantity <+> 3 Implant Identification Catalog Number <+> 3 Implant Type <+> 3 Type <+> 4 Implant Identification Description <+> 4 Implant Identification Trigonometry Teacher Name: <+> 4 Implant Site <+> 4 Implant Quantity <+> 4 Implant Identification Catalog Number <+> 4 Implant Type <+> 4 Type <+> 5 Implant Identification Description <+> 5 Implant Identification Trigonometry Teacher Name: <+> 5 Implant Site <+> 5 Implant Quantity <+> 5 Implant Identification Catalog Number <+> 5 Implant Type <+> 5 Type <+> 6 Implant Identification Description <+> 6 Implant Identification Trigonometry Teacher Name: <+> 6 Implant Site <+> 6 Implant Quantity <+> 6 Implant Identification Catalog Number <+> 6 Implant Type <+> [address] [facility] IntraOp Intraoperative Assessment Entry 1 Handoff [...] Modified By: TAE HERNANDEZ RN 10/29/20 08:51:48 [facility] IntraOp Intraoperative Assessment Audit 10/29/20 08:51:48 Gettering Operator: MYAH Modifier: WASSONSY 1 <*> Skin Assessment Verified Yes 1 <*> Handoff Method Bedside/Face to face [facility] IntraOp Intraoperative Equipment Entry 1 Type Equipment Equipment Equipment Abelardo Suction System ID Number [id number] Setting 200 MM HG Intraop Monitoring Electrocardiogram Five lead placement (ECG) Electrode Placement Blood Pressure Non-Invasive BP Device Source Blood Pressure Arm, right upper Location Pulse Oximeter Hand, left Probe Site Antiembolic Devices Antiembolic Devices Sequential compression device, knee high Antiembolic Device Bilateral Location Antiembolic Device [id number] ID Number Antiembolic Device standard Setting Scopes Photo/Video Documentation Photo No Video No Last Modified By: TAE HERNANDEZ RN 10/29/20 08:46:20 [facility] IntraOp Intraoperative Equipment Audit 10/29/20 08:52:26 Gettering Operator: WASSONSY Modifier: WASSONSY 1 <+> ID Number 1 <*> Setting 200 1 <+> Electrocardiogram (ECG) Electrode Placement 1 <+> Blood Pressure Location 1 <+> Pulse Oximeter Probe Site 1 <+> Blood Pressure Source 1 <+> Antiembolic Device ID Number [facility] IntraOp Medication Admin Entry 1 Entry 2 Entry 3 Medication/Irrigant thrombin 5000units SPNG SURGFOAM SEALR AQUAMANTYS BIPLR topical powder - [id number] Combo Med List Time Administered Route of topical TOPICAL OTHER Administration Dose Dose 5000 1 Unit of Measure units pkt Volume qs Administered By ADDIE VELIZ MD-ADDIE PASCUAL MD-ADDIE PASCUAL MD-SNNegrita Procedure Irrigation Irrigant Volume In Irrigant Volume Out Last Modified By: TAE HERNANDEZ, TAE BARRIOS, TAE BARRIOS RN 10/29/20 08:53:36 10/29/20 08:53:36 10/29/20 08:53:36 Entry 4 Medication/Irrigant Neosporin 15Gm ointment - [id number] Combo Med List Time Administered Route of TOPICAL Administration Dose Dose 1 Unit of Measure pkt Volume Administered By CIRO HERNANDEZ PA Procedure Irrigation Irrigant Volume In Irrigant Volume Out Last Modified By: TAE HERNANDEZ RN 10/29/20 08:53:36 [facility] IntraOp Medication Admin Audit 10/29/20 08:53:36 Gettering Operator: WASSONSY Modifier: WASSONSY 1 <*> Medication/Irrigant thrombin 5000units topical powder - [id number] <+> 2 Medication/Irrigant <+> 2 Route of Administration <+> 2 Administered By <+> 2 Dose <+> 2 Unit of Measure <+> 3 Medication/Irrigant <+> 3 Route of Administration <+> 3 Administered By <+> 4 Medication/Irrigant <+> 4 Route of Administration <+> 4 Administered By <+> 4 Dose <+> [address] [facility] IntraOp Patient Positioning Entry 1 Procedure [...] HIP AND THIGH PADS Positioned By TAE HERNANDEZ, DAE, KAREN PEREA APRN, OWEN, ROBERT D, MD-TANVIR, CLARI NORRIS RN, CIRO HERNANDEZ PA Position Verified Positioning Yes Verified by Anesthesia Positioning Yes Verified by Surgeon Last Modified By: TAE HERNANDEZ RN 10/29/20 09:05:55 [facility] IntraOp Sign In Entry 1 Patient, [...] Modified By: TAE HERNANDEZ RN 10/29/20 08:54:11 [facility] IntraOp Sign In Audit 10/29/20 08:54:11 Gettering Operator: MYAH Modifier: WASSONSY 1 <*> Surgical Site Marked by person Yes performing procedure 1 <*> Difficult Airway/Aspiration Risk No 1 <*> Blood Loss Risk No 1 <*> Blood Identifiers Verified Per Not applicable Policy [facility] IntraOp Sign Out Entry 1 RN [...] Modified By: TAE HERNANDEZ RN 10/29/20 09:06:53 [facility] IntraOp Sign Out Audit 10/29/20 10:35:47 Gettering Operator: WASMANPREET Modifier: WASIANSY <+> 1 RN Sign Out Signature Date/Time [facility] IntraOp Skin Prep Entry 1 Procedure Lumbar Fusion Posterior 3 Level Prescribed Yes Pre-Surgical Prep Completed Prep Area back Intraop Prep Integumentary WDL Assessment WDL Prep Agents DuraPrep Prep by TAE HERNANDEZ, RN Hair Removal Methods No hair removal performed Last Modified By: TAE HERNANDEZ RN 10/29/20 08:45:47 [facility] IntraOp Surgical Procedures Entry 1 Procedure Lumbar Fusion Posterior 3 Level Additional (L3-5 PLIF USING AIRO) Procedure Description Primary Procedure Yes Primary Surgeon ADDIE VELIZ MD-SNU Start 10/29/20 08:39:00 Stop 10/29/20 10:27:00 Anesthesia Type General Specialty SN Neurosurgery Wound Class I - Clean Last Modified By: TAE HERNANDEZ RN 10/29/20 09:08:03 General Comments: CLLINDA [facility] IntraOp Surgical Procedures Audit 10/29/20 10:28:18 Gettering Operator: MYAH Modifier: WASSONSY 1 <*> Stop [facility] IntraOp Temp Regulation Devices Entry 1 Temp Regulation Temperature Forced Air Warming Regulation Device device Temperature 96721 Regulation Device Serial/Unit Number Temperature Upper body Regulation Site Temperature Device 43 C Setting Temperature KAREN PEREA APRN Regulation Device Applied by Last Modified By: TAE HERNANDEZ RN 10/29/20 08:46:05 [facility] IntraOp Temp Regulation Devices Audit 10/29/20 09:06:09 Gettering Operator: MYAH Modifier: MYAH <+> 1 Temperature Regulation Device Serial/Unit Number <+> [address] [facility] IntraOP Time Out Entry 1 Procedure [...] Modified By: TAE HERNANDEZ RN 10/29/20 08:44:19 [facility] IntraOp X-Ray and Images Entry 1 X-Ray/Imaging Type Other Fluoroscopy Type Other Site back Wood Die Maker Name Delma Escobedo, Diagnostic Assistant County Engineer Protective Devices Yes Used X-Ray and Imaging brainlab intraoperative Comment ct scanner Last Modified By: TAE HERNANDEZ RN 10/29/20 08:46:47 [facility] IntraOp X-Ray and Images Audit 10/29/20 09:06:27 Gettering Operator: MYAH Modifier: MYAH <+> 1 Wood Die Maker Name Case Comments <None> Finalized By: DENNYS SANTO Document Signatures Signed By: TAE HERNANDEZ RN 10/29/20 10:35 DENNYS SANTO 10/30/20 16:24 Unfinalized History Date/Time Username Reason for Unfinalizing Freetext Reason for Unfinalizing 10/30/20 16:22 WATTSDR Correct Billing Electronically signed by Kailey [facility] Conversion Admissions Nurse Cerner at 02/08/2023 12:31 PM CDT documented in this encounter Plan of Treatment Not on file documented as of this encounter Visit Diagnoses Not on filedocumented in this encounter
--- OUTSIDE RECORDS SUMMARY | 2025-08-24 14:05 | XMS_ITS | Encounter Summary ---
Author Organization [employer] ([place], [place], [place], [place], [place]) Address [address] [place] [address] Care Team Providers Care Supplier Engineer Name Role Phone Unavailable Primary Care Provider Unavailabl e Encounter Details Date Type Department Care Team (Late st Contact Info) Description 10/30/2020 Transcribed Document [facility] [place] Family Medicine [facility] [place] [address] ProviderFarhan MD [address] [id number] Social History Tobacco Use Types Packs/Day Years [...] - Historical ProviderMD - 10/30/2020 2:00 AM COLD WORKING SUPERVISOR Locator Details Entered On: 10/30/2020 1:24 EST Performed [...] Sam Anton, RN - 10/30/2020 1:24 EST documented in this encounter Plan of Treatment Not on file documented as of this encounter Visit Diagnoses Not on filedocumented in this encounter
--- OUTSIDE RECORDS SUMMARY | 2025-08-24 14:05 | XMS_ITS | Encounter Summary ---
Author Organization [employer] ([place], [place], [place], [place], [place]) Address [address] [place] [address] Care Team Providers Care Rolling Mill Operator Name Role Phone Unavailable Primary Care Provider Unavailabl e Encounter Details Date Type Department Care Team (Late st Contact Info) Description 10/30/2020 Transcribed Document [facility] [place] Family Medicine [facility] [place] [address] ProviderFarhan MD [address] [place] [address] Social History Tobacco Use Types [...] - Historical ProviderMD - 10/30/2020 10:45 AM DIRECTOR OF MATERIALS MANAGEMENT UM Authorization Entered On: 10/30/2020 10:45 EST Performed On: 10/30/2020 10:45 EST by Ca Amaya Rn-Utilization Review Primary Insurance Authorization Authorization and Policy Numbers : Insurance 1 Health Plan: [employer] CHO[employer] PPO Policy Number: [id number] Authorization Number: Insurance Primary Name : [employer] Choice [id number] Auth/Referral Contact Name-Primary : Alfredo Casas Authorization [...] or availity as of yet (DERICK SHIPMAN, Research Computing Specialist 10/28/2020 12:39) Ca Amaya Rn-Utilization Review - 10/30/2020 10:45 EST Electronically signed by Kailey, [facility] Conversion Weigher And Charger Cerner at 02/08/2023 12:31 PM CDT documented in this encounter Plan of Treatment Not on file documented as of this encounter Visit Diagnoses Not on filedocumented in this encounter
--- OUTSIDE RECORDS SUMMARY | 2025-08-24 14:05 | XMS_ITS | Encounter Summary ---
Author Organization [employer] ([place], [place], [place], [place], [place]) Address [address] [place] [address] Care Team Providers Care Solar System Designer Name Role Phone Unavailable Primary Care Provider Unavailabl e Encounter Details Date Type Department Care Team (Late st Contact Info) Description 10/29/2020 Transcribed Document [facility] [place] [facility] [place] [address] ProviderFarhan MD [address] [place], [place] [phone] Social History Tobacco Use Types Packs/Day Years [...] - Historical ProviderMD - 10/29/2020 3:35 PM INDIGO VAT TENDER CLOTH Treatment Intervention, PT Entered On: 10/31/2020 9:54 [...] Chase PHYSICAL THERAPIST - 10/31/2020 9:49 EST Assisted Goals Mobility/Bed Mobility LTG PT Grid Goal [...]
--- OUTSIDE RECORDS SUMMARY | 2025-08-24 14:05 | XMS_ITS | Encounter Summary ---
Author Organization [employer] ([place], [place], [place], [place], [place]) Address [address] [place] [address] Care Team Providers Care Upholstery Parts Sorter Name Role Phone Unavailable Primary Care Provider Unavailabl e Encounter Details Date Type Department Care Team (Late st Contact Info) Description 10/30/2020 Transcribed Document [facility] [place] [facility] [address] ProviderFarhan MD [address], [place] [id number] Social History Tobacco Use Types Packs/Day Years [...] - Historical ProviderMD - 10/30/2020 5:00 AM SEQUINS SLINGER Chart Check - Review Order Profile Entered On: 10/30/2020 5:11 EST Performed On: 10/30/2020 5:00 EST by Sam Anton RN Chart Check Powerplans Initiated/Discontinued as Appropriate : Yes All Active Orders Reviewed : Yes Sam Anton RN - 10/30/2020 5:11 EST Electronically signed by Louis Bonner Conversion Automobile Body Repair Supervisor Mario at 02/08/2023 12:44 PM CDT documented in this encounter Plan of Treatment Not on file documented as of this encounter Visit Diagnoses Not on filedocumented in this encounter
--- OUTSIDE RECORDS SUMMARY | 2025-08-24 14:05 | XMS_ITS | Encounter Summary ---
Author Organization [employer] ([place], [place], [place], [place], [place]) Address [address] [place] [address] Care Team Providers Care Tomato Pulper Operator Name Role Phone Unavailable Primary Care Provider Unavailabl e Encounter Details Date Type Department Care Team (Late st Contact Info) Description 10/29/2020 Transcribed Document [facility] [place] [facility] [address] ProviderFarhan MD [address], [place] [id number] Social History Tobacco Use Types Packs/Day Years [...] - Historical ProviderMD - 10/29/2020 10:00 PM EYEGLASS INSPECTOR Pain Assessment Entered On: 10/30/2020 1:23 EST [...]
--- OUTSIDE RECORDS SUMMARY | 2025-08-24 14:05 | XMS_ITS | Encounter Summary ---
Author Organization [employer] ([place], [place], [place], [place], [place]) Address [address] [place] [address] Care Team Providers Care Foster Parent Name Role Phone Unavailable Primary Care Provider Unavailabl e Encounter Details Date Type Department Care Team (Late st Contact Info) Description 10/30/2020 Transcribed Document [facility] [place] [facility] [place] [address] ProviderFarhan MD [address], [place] [id number] Social History Tobacco Use Types Packs/Day Years [...] - Historical ProviderMD - 10/30/2020 10:51 AM PELT SALTER UM Authorization Entered On: 10/30/2020 10:51 EST Performed On: 10/30/2020 10:51 EST by Ca Amaya Rn-Utilization Review Primary Insurance Authorization Authorization and Policy Numbers : Insurance 1 Health Plan: [employer] CHOICE PPO Policy Number: [id number] Authorization Number: Insurance Primary Name : [employer] Choice [id number] Authorization Status-Primary : Pending Auth/Referral Contact Name-Primary : Alfredo R Reference Number-Primary : [id number] Authorization Number-Primary : Pending Authorized Service Begin [...] or availity as of yet (DERICK SHIPMAN, Electric Meter Tester Shop 10/28/2020 12:39) Ca Amaya, Rn-Utilization Review - 10/30/2020 10:51 EST Electronically signed by [facility], [facility] Conversion Brainer Cerner at 02/08/2023 12:23 PM CDT documented in this encounter Plan of Treatment Not on file documented as of this encounter Visit Diagnoses Not on filedocumented in this encounter
--- OUTSIDE RECORDS SUMMARY | 2025-08-24 14:05 | XMS_ITS | Encounter Summary ---
Author Organization [employer] ([place], [place], [place], [place], [place]) Address [address] [place] [address] Care Team Providers Care Hunting Sales Associate Name Role Phone Unavailable Primary Care Provider Unavailabl e Encounter Details Date Type Department Care Team (Late st Contact Info) Description 10/30/2020 Transcribed Document [facility] Radiology [address] [place] [address] Mary Beth Orr MD [address] [address] Social History Tobacco Use Types [...] is a 60 yo male admitted to [facility] per Dr. Green for an L3-5 [...] 100 mg intravenous injection 1 Infusion, IntraVENous, I1Ipujr Jardiance 25 mg oral tablet 25 mg [...] Last Charted Minimum Maximum Temp 98.8 (OCT 30 06:30) 97.7 (OCT 29 18:14) 99 (OCT 29 10:40) Mon HR 82 (OCT 30:30) 73 (OCT 29 18:14) 88 (OCT 29 10:45) Resp Rate 16 (OCT 30:30) 16 (OCT 29 10:40) 16 (OCT 29 10:40) SBP 130 (OCT 30:30) L 82 (OCT 29:25) 134 (OCT 29 10:40) DBP 73 (OCT 30:30) L 50 (OCT 29:25) 86 (OCT 29 10:40) MAP 101 (OCT [...]
--- OUTSIDE RECORDS SUMMARY | 2025-08-24 14:05 | XMS_ITS | Encounter Summary ---
Author Organization [employer] ([place], [place], [place], [place], [place]) Address [address] [place] [address] Care Team Providers Care Complaint Inspector Name Role Phone Unavailable Primary Care Provider Unavailabl e Encounter Details Date Type Department Care Team (Late st Contact Info) Description 10/30/2020 Transcribed Document [facility] Neurology - [address] [facility] [address] [place] [address] Addie Veliz Jr., MD 10[address] [facility] [address] [place] [address] Social History Tobacco Use Types [...] JESUS drain output for 20 and 24 [id number] overnight No major complaints. He has postop [...] tomorrow and go home tomorrow. He requests Macy instead of Percocet when he goes home. I put a Macy prescription on his chart. I talked to his . They're both happy with the plan. documented in this encounter Plan of Treatment Not on file documented as of this encounter Visit Diagnoses Not on filedocumented in this encounter
--- OUTSIDE RECORDS SUMMARY | 2025-08-24 14:05 | XMS_ITS | Encounter Summary ---
Author Organization [employer] ([place], [place], [place], [place], [place]) Address [address] [place] [address] Care Team Providers Care Legal Clerk Name Role Phone Unavailable Primary Care Provider Unavailabl e Encounter Details Date Type Department Care Team (Late st Contact Info) Description 10/29/2020 Transcribed Document [facility] Neurology - [address] [facility] [address] [place] [address] Waylon Green Jr., MD 10[address] [facility] [address] [place] [address] Social History Tobacco Use Types [...] Airo intraoperative CT scan and Brain[employer] neuronavigation. LABOR RELATIONS ANALYST: Enriqueta Carrillo PA-C. ANESTHESIA: General endotracheal anesthesia. [...] These were Steinmann pins, placed with a 21viaNet drill under navigation. We used a pre-existing [...] hardware, placement of new hardware, wound closure. /[id number] Waylon Green Jr, MD RDO/AQ / RDO / MODL /[id number] documented in this encounter Plan of Treatment Not on file documented as of this encounter Visit Diagnoses Not on filedocumented in this encounter
--- OUTSIDE RECORDS SUMMARY | 2025-08-24 14:05 | XMS_ITS | Encounter Summary ---
Author Organization [employer] ([place], [place], [place], [place], [place]) Address [address] [place] [address] Care Team Providers Care Hydraulic Press Operator Name Role Phone Unavailable Primary Care Provider Unavailabl e Encounter Details Date Type Department Care Team (Late st Contact Info) Description 10/30/2020 Transcribed Document [facility] [place] [facility] [place] [address] ProviderFarhan MD [address] [place] [address] Social History Tobacco Use Types [...] - Historical ProviderMD - 10/30/2020 10:50 AM BUTTON SPINDLER UM Authorization Entered On: 10/30/2020 10:51 EST Performed On: 10/30/2020 10:50 EST by Ca Amaya Rn-Utilization Review Primary Insurance Authorization Authorization and Policy Numbers : Insurance 1 Health Plan: [employer] CHOICE PPO Policy Number: [id number] Authorization Number: Insurance Primary Name : [employer] Choice [id number] Authorization Status-Primary : Pending Auth/Referral Contact Name-Primary : Alfredo R Reference Number-Primary : [id number] Authorization Number-Primary : Pending Authorized Service Begin [...] or availity as of yet (DERICK SHIPMAN, Audio Visual Secretary 10/28/2020 12:39) Ca Amaya, Rn-Utilization Review - 10/30/2020 10:50 EST Electronically signed by Kailey, [facility] Conversion Collateral Clerk Cerner at 02/08/2023 12:12 PM CDT documented in this encounter Plan of Treatment Not on file documented as of this encounter Visit Diagnoses Not on filedocumented in this encounter
--- OUTSIDE RECORDS SUMMARY | 2025-08-24 14:05 | XMS_ITS | Encounter Summary ---
Author Organization [employer] ([place], [place], [place], [place], [place]) Address [address] [place] [address] Care Team Providers Care Assembler Caterpillar Spider Name Role Phone Unavailable Primary Care Provider Unavailabl e Encounter Details Date Type Department Care Team (Late st Contact Info) Description 10/29/2020 Transcribed Document [facility] [place] [address] ProviderFarhan MD [address], [place] [id number] Social History Tobacco Use Types Packs/Day Years [...] - Farhan ProviderMD - 10/29/2020 8:39 AM DAIRY QUALITY ASSURANCE OFFICER [facility] Main OR PACU Summary Primary Physician: ADDIE VELIZ MD-[facility] Finalized Date/Time: 10/29/20 12:13:32 Pt. Name: FRANSISCO CRAVEN/Sex: 1960 Male Med Rec #: [id number] Physician: ADDIE VELIZ MD-SN Financial #: [id number] Pt. Type: I Room/Bed: / Admit/Disch: 09/22/20 10:37:00 - Institution: [facility] Main OR PACU I Case Times Entry 1 In PACU I 10/29/20 10:38:00 Ready for PACU 10/29/20 12:00:00 Discharge Discharge from PACU 10/29/20 12:00:00 I Last Modified By: DANIELLE CLANCY RN 10/29/20 12:13:15 Finalized By: DANIELLE CLANCY, RN Document Signatures Signed By: DANIELLE CLANCY RN 10/29/20 12:13 Electronically signed by Kailey [facility] Conversion Bituminous Distributor Operator Cerner at 02/08/2023 12:20 PM CDT documented in this encounter Plan of Treatment Not on file documented as of this encounter Visit Diagnoses Not on filedocumented in this encounter
--- OUTSIDE RECORDS SUMMARY | 2025-08-24 14:05 | XMS_ITS | Encounter Summary ---
Author Organization [employer] ([place], [place], [place], [place], [place]) Address [address] [place] [address] Care Team Providers Care Restaurant Cook Name Role Phone Unavailable Primary Care Provider Unavailabl e Encounter Details Date Type Department Care Team (Late st Contact Info) Description 10/29/2020 Transcribed Document [facility] Neurology - [address] [facility] [address] [place] [address] Addie Veliz Jr., MD 10[address] [facility] [address] [place] [address] Social History Tobacco Use Types [...]
--- OUTSIDE RECORDS SUMMARY | 2025-08-24 14:05 | XMS_ITS | Encounter Summary ---
Author Organization [employer] ([place], [place], [place], [place], [place]) Address [address] [place] [address] Care Team Providers Care Phone Engineer Name Role Phone Unavailable Primary Care Provider Unavailabl e Encounter Details Date Type Department Care Team (Late st Contact Info) Description 10/29/2020 Transcribed Document [facility] [place] [facility] [place] [address] ProviderFarhan MD [address] [place] [address] Social History Tobacco Use Types [...] - Farhan ProviderMD - 10/29/2020 8:39 AM LACE PAPER MACHINE OPERATOR [facility] Main OR Preop Summary Primary Physician: ADDIE VELIZ MD-SNU Finalized Date/Time: 10/29/20 12:44:39 Pt. Name: FRANSISCO CRAVEN/Sex: 1960 Male Med Rec #: [id number] Physician: ADDIE VELIZ MD-TANVIR Financial #: [id number] Pt. Type: I Room/Bed: 647/1 Admit/Disch: 10/29/20 12:20:00 - Institution: [facility] PreOp Case Times Entry 1 In Preop 10/29/20 06:05:00 Ready for Holding n/a Room Patient Ready for 10/29/20 07:31:00 Surgery Patient Out of Preop 10/29/20 08:11:00 Patient Out of n/a Holding Room Last Modified By: PEDRO Briceño RN 10/29/20 12:44:37 [facility] PreOp Case Times Audit 10/29/20 12:44:37 Professor Of Genetics: CHRISTY Modifier: WILSONDL <+> 1 Patient Out of Preop 10/29/20 07:31:08 Professor Of Genetics: CHRISTY Modifier: WILSONDL <+> 1 Patient Ready for Surgery Finalized By: PEDRO Briceño, RN Document Signatures Signed By: PEDRO Briceño RN 10/29/20 12:44 Electronically signed by Kailey [facility] Conversion Fence Manufacture Supervisor Cerner at 02/08/2023 12:23 PM CDT documented in this encounter Plan of Treatment Not on file documented as of this encounter Visit Diagnoses Not on filedocumented in this encounter
--- OUTSIDE RECORDS SUMMARY | 2025-08-24 14:05 | XMS_ITS | Encounter Summary ---
Author Organization [employer] ([place], [place], [place], [place], [place]) Address [address] [place] [address] Care Team Providers Care Automobile Body Repairer Name Role Phone Unavailable Primary Care Provider Unavailabl e Encounter Details Date Type Department Care Team (Late st Contact Info) Description 10/30/2020 Transcribed Document [facility] [place] [facility] [place] [address] ProviderFarhan MD [address] [place] [address] Social History Tobacco Use Types [...] - Farhan ProviderMD - 10/30/2020 10:00 AM SANDBLASTING SUPERVISOR Pain Assessment Entered On: 10/30/2020 20:02 EST [...]
--- OUTSIDE RECORDS SUMMARY | 2025-08-24 14:05 | XMS_ITS | Clinical Summary ---
Author Organization [facility] Address [address] [place] [address] Care Team Providers Care Screw Remover Name Role Phone Maycol Erickson PA-C Primary Care Provider [phone] Allergies Active Allergy Reactions Criticality Noted Date [...] Hemoglobin A1C 5.1 4.00 - 6.00 % [facility] Comment: DF by IF @ 10/12/2014 11:49 The [place] [employer] recommends maintenance of Hemoglobin A1C at 7.0% or lower. Goals for Hemoglobin A1C reduction may need to be modified if hypoglycemia is a problem. Mean Bld Glu Estim. 93 mg/dL [facility] Blood specimen (specimen) 10/12/2014 10:50 AM EST Narrative [facility] - 10/12/2014 11:49 AM EST Specimen Type: Blood [facility] Santo Klein Jr., MD LAB BLOOD ORDERABLE S Final Result [facility] [address] [place] [address], from Last 3 Months or Most Recently Relevant to Health Maintenance Insurance [address] [address] MEDICARE ADVANTAGE Care Teams Screw Remover Relationship Specialty Start Date End Date Maycol Erickson [place] [address] (work) PCP - General Physician Assorter Laundry 08/15/16
--- OUTSIDE RECORDS SUMMARY | 2025-08-24 14:06 | XMS_ITS | Encounter Summary ---
Author Organization [employer] ([place], [place], [place], [place], [place]) Address [address] [place] [address] Care Team Providers Care Train Operator Name Role Phone Unavailable Primary Care Provider Unavailabl e Encounter Details Date Type Department Care Team (Late st Contact Info) Description 10/31/2020 Transcribed Document [facility] [place] Medicine [address] [place] [address] ProviderFarhan MD [address] [place] [address] Social History Tobacco Use Types [...] - Farhan ProviderMD - 10/31/2020 2:40 PM BRUISE TRIMMER [facility] [place] [address] FRANSISCO CRAVEN :1960 Visit Time:10/29/2020 Your [...] When Within 2 weeks Nirali hylton Where: [address] [place] [address] [place] [id number] (1) Medications What How Much When Instructions Next Dose ergocalciferol (Vitamin D2) 50,000 International Units Oral Weekly taken on aspirin 81 Milligram(s) Oral Every Day 11/01 @ 9am atorvastatin (atorvastatin 20 mg oral tablet) 1 Tablet(s) Oral Every Day /10 @ 10pm diazepam 5 Milligram(s) Oral As [...] these instructions at home: Medicines ??? Take cbxj-geb-aqnehlg and prescription medicines only as told by [...] cannot use soap and water, use hand cylinder press operator helper. ? Change your bandage as told by [...] your pee (urine) pale yellow. ? Take nkyc-ixu-xlpkkfq or prescription medicines. ? Eat foods that [...] 02/01/2012 Document Revised: 01/29/2020 Document Reviewed: 01/22/2018 [employer] Patient Education ?? 2020 [employer]. acetaminophen and hydrocodone (a SEET a MIN oh fen and michael droe KOE done) Hycet, Lorcet, [place], Verdrocet, Vicodin, Xodol, Zamicet What is the [...] may report side effects to FDA at 5-144-ZCZ-7765. What other drugs will affect acetaminophen and [...] affect acetaminophen and hydrocodone, including prescription and hfhg-fnd-cbrrybl medicines, vitamins, and herbal products. Not all [...] to ensure that the information provided by [employer]. ('[employer]') is accurate, up-to-date, and complete, but no guarantee is made to that effect. Drug information contained herein may be time sensitive. [employer] information has been compiled for use by healthcare practitioners and consumers in the [place] and therefore [employer] does not warrant that uses outside of the [place] are appropriate, unless specifically indicated otherwise. [employer] drug information does not endorse drugs, diagnose patients or recommend therapy. [employer] drug information is an informational resource designed [...] effective or appropriate for any given patient. [facility] does not assume any responsibility for any aspect of healthcare administered with the aid of information [facility] provides. The information contained herein is not intended to cover all possible uses, directions, precautions, warnings, drug interactions, allergic reactions, or adverse effects. If you have questions about the drugs you are taking, check with your doctor, nurse or pharmacist. Copyright 0684-2075 Mario [facility] [employer]. Version: 16.01. Revision Date: 11/12/2019. Emergency Awareness [...] Assistance with quitting is available by contacting 5-041-YHOM-NOW. This is a free resource providing counseling, [...] range between ( 0.0 and 7.0 ) Victoria #: 1.07 K/uL -- Normal range between ( 0.16 and 1.00 ) Eos #: 0.03 x10(3)/uL -- Normal range between ( 0.00 and 0.80 ) Victoria %: 7.3 % -- Normal range between [...] ) Urine Bilirubin Dipstick: Negative Urine Specific [place]: *1.028 -- Normal range between ( 1.005 [...] was given the opportunity to ask questions. Patient/Resin Remover Name: Patient/Resin Remover Signature: Relationship to Patient: Clinician/Hospital Resin Remover Signature: Date: documented in this encounter Plan of Treatment Not on file documented as of this encounter Visit Diagnoses Not on filedocumented in this encounter
--- OUTSIDE RECORDS SUMMARY | 2025-08-24 14:06 | XMS_ITS | Encounter Summary ---
Author Organization [employer] ([place], [place], [place], [place], [place]) Address [address] [place] [address] Care Team Providers Care Head End Desizing Machine Operator Name Role Phone Unavailable Primary Care Provider Unavailabl e Encounter Details Date Type Department Care Team (Late st Contact Info) Description 10/31/2020 Transcribed Document [facility] [place] [facility] [place] [address] ProviderFarhan MD [address], [place] [id number] Social History Tobacco Use Types Packs/Day Years [...] - Historical ProviderMD - 10/31/2020 3:22 PM HEEL SEAT TRIMMER Discharge Summary, PT Entered On: 10/31/2020 15:23 [...] Chase PHYSICAL THERAPIST - 10/31/2020 15:22 EST Engine Oiler Goals Mobility/Bed Mobility LTG PT Grid Goal [...]
--- OUTSIDE RECORDS SUMMARY | 2025-08-24 14:06 | XMS_ITS | Encounter Summary ---
Author Organization [employer] ([place], [place], [place], [place], [place]) Address [address] [place] [address] Care Team Providers Care Composition Weatherboard Installer Name Role Phone Unavailable Primary Care Provider Luz Maria e Encounter Details Date Type Department Care Team (Late st Contact Info) Description 10/31/2020 Transcribed Document [facility] [place] [address] ProviderFarhan MD [address] [place] [address] Social History Tobacco Use Types [...] Conversion Note - Farhan ProviderMD - 10/31/2020 6:00 AM LUMITE INJECTOR Pain Assessment Entered On: 10/31/2020 6:55 EST [...]
--- OUTSIDE RECORDS SUMMARY | 2025-08-24 14:06 | XMS_ITS | Encounter Summary ---
Author Organization [employer] ([place], [place], [place], [place], [place]) Address [address] [place] [address] Care Team Providers Care Senior Safety Management Consultant Name Role Phone Unavailable Primary Care Provider Unavailabl e Encounter Details Date Type Department Care Team (Late st Contact Info) Description 10/31/2020 Transcribed Document [facility] [place] Medicine [address] [place] [address] ProviderFarhan MD [address] [place], [place] [id number] Social History Tobacco Use Types Packs/Day Years [...] - Historical ProviderMD - 10/31/2020 2:36 PM POLISHER APPRENTICE Stroke/Warfarin Instructions Entered On: 10/31/2020 14:36 EST [...]
--- OUTSIDE RECORDS SUMMARY | 2025-08-24 14:06 | XMS_ITS | Encounter Summary ---
Author Organization [employer] ([place], [place], [place], [place], [place]) Address [address] [place] [address] Care Team Providers Care Strategic Planning Analyst Name Role Phone Unavailable Primary Care Provider Luz Maria e Encounter Details Date Type Department Care Team (Late st Contact Info) Description 10/31/2020 Transcribed Document [facility] [place] [facility] [place] [address] ProviderFarhan MD [address] [place] [address] Social History Tobacco Use Types [...] - Historical ProviderMD - 10/31/2020 2:00 AM CRM DYNAMICS DEVELOPER Pain Assessment Entered On: 10/31/2020 6:55 EST [...]
--- OUTSIDE RECORDS SUMMARY | 2025-08-24 14:06 | XMS_ITS | Encounter Summary ---
Author Organization [employer] ([place], [place], [place], [place], [place]) Address [address] [place] [address] Care Team Providers Care Stained Glass Glazier Helper Name Role Phone Unavailable Primary Care Provider Unavailabl e Encounter Details Date Type Department Care Team (Late st Contact Info) Description 10/30/2020 Transcribed Document [facility] [place] Medicine Critical [place] [address] ProviderFarhan MD [address] [place] [address] Social History Tobacco Use [...] - Farhan ProviderMD - 10/30/2020 2:00 PM TABLET TECHNICIAN Pain Assessment Entered On: 10/30/2020 20:02 EST [...]
--- OUTSIDE RECORDS SUMMARY | 2025-08-24 14:06 | XMS_ITS | Encounter Summary ---
Author Organization [employer] ([place], [place], [place], [place], [place]) Address [address] [place] [address] Care Team Providers Care As400 Programmer Name Role Phone Unavailable Primary Care Provider Unavailabl e Encounter Details Date Type Department Care Team (Late st Contact Info) Description 10/31/2020 Transcribed Document [facility] [place] [address] ProviderFarhan MD [address], [place] [phone] Social History Tobacco Use Types Packs/Day Years [...] - Historical ProviderMD - 10/31/2020 2:36 PM CLAY ROASTER Nursing Discharge Summary Entered On: 10/31/2020 14:37 [...] - 10/31/2020 14:36 EST Electronically signed by Kailey, [facility] Conversion Retail Loss Prevention Investigator Cerner at 02/08/2023 12:18 PM CDT documented in this encounter Plan of Treatment Not on file documented as of this encounter Visit Diagnoses Not on filedocumented in this encounter
--- OUTSIDE RECORDS SUMMARY | 2025-08-24 14:06 | XMS_ITS | Data Portability ---
Author Organization [place] [facility] Address [address] [facility] [address] [place] [address] Care Team Providers Care Cnc Mechanic Name Role Phone AUDELIA GOODWIN Referring Provider [...] We will send a note to his home service advisor that he can resume his arthritis medication [...] further questions or concerns at this time. [email or web address] Not available 12/27/2022 08:32:27 01/23/2023 01/23/2023 Unfortunately [...] with hardware revision/removal of from L3-L5 using Yoozon neuro navigation and arrow intraoperative CT scan. [...] - standing with weights 2022 023 MILA [facility], [address] [place], [address], 3 17:06:21 Medication Orders None recorded. Patient TargetsNo targets recorded. Patient InstructionsNo instructions recorded. Reason for Referral None Reported. Results Created Date Observation Date Name Description Value Unit Range Abnormal Flag Note LastModifiedBy Organization Detail LastModifiedTime 12/14/19 21 12/14/2020 XR, lumbo sacra l spine , 2 or 3 view [facility] [address] [place] [address] [employer] [facility] [place] [address] Paticecil t Name: FRANSISCO tyler : [phone] [...] Catalan MD on 021 3:04 PM [email or web address] [facility] [address] [place], [address], 12/31/2020 12:00:24 02/10/20 21 02/09/2021 XR, lumbo sacra l spine , 2 or 3 view [facility] [address] [place] [address] [place] [address] Patien t Name: FRANSISCO tyler : 89 [...] Edwina Catalan MD on 021 9:[address] Radiology [facility] [address] [place] [address], [phone], 03/04/2021 13:47:01 03/17/20 21 03/17/2021 XR, lumbo sacra l spine , 2 or [address] [address] Paticecil tyler Name: FRANSISCO tyler : 89 [...] Edwina Catalan MD on 021 2:[email or web address] Radiology [facility] [address] [place] [address], [address], 04/03/2021 17:13:52 10/27/19 22 10/10/2021 elect romyo gram + nerve condu ction study No observ ation record ed. [email or web address] [facility] [address], [place], [place], [address], 12/26/2022 12:45:46 12/27/19 23 12/26/2022 XR, lumbo sacra l spine , 4 or more view [address] [facility] [place] [address] Matthew tyler Name: FRANSISCO tyler : 89 [...] Edwina Catalan MD on 12/27/19 5:01 PM [email or web address] [facility] Radiology [facility] [address] [place], [address], 01/12/2023 15:34:52 01/18/20 23 01/17/2023 MRI, lumba r spine , w/wo contr ast [place] [address] [facility] [place] [address] Matthew tyler Name: FRANSISCO tyler : 89 [...] status post discec shoaib, interb lola graft, lucerne farmer ior fusion and brittney ctomy from L3 throug h S1. There is parama gnetic artifa ct from the pedicl e screws and lucerne farmer ior fusion hardwa re from L3 throug h L5. There is prior remova l of screws from the S1 level. There is dextro curvat ure of the lumbar spine. There is mild lucerne farmer ior listhe sis of L1 on L2 [...] strati on of [address] ([facility] [address]-0 2), there is no abnorm al [...] Denys reed MD on 023 11:31 AM [email or web address] [facility] [address] [place], [address], 01/17/2023 17:55:31 10/19/20 23 10/19/2023 MRI, lumba r spine , w/o contr ast [address] [address] Matthew tyler Name: FRANSISCO tyler : 11[birth year] [...] status post discec shoaib, interb lola graft, lucerne farmer ior fusion and brittney ctomie s from L3 throug h S1. There is parama gnetic artifa ct from the interb lola spacer s, and the pedicl e screws and lucerne farmer ior fusion rods from L3 throug h L5. There is prior remova l of pedicl e screws at the S1 level. There is dextro curvat ure from L1 throug h L4, and levocu rvatur e at L4-L5. There is mild lucerne farmer ior listhe sis of L1 on L2 [...] reed MD on 2022 3:48 PM [email or web address] [facility] [address] [place] [address], [address], 11/14/2023 20:28:44 10/19/20 23 10/19/2023 CT, lumba r spine , w/o contr ast [address] [address] Matthew tyler Name: FRANSISCO tyler : 89 [...] status post discec shoaib, interb lola graft, lucerne farmer ior fusion and brittney ctomie s from L3 throug h S1. There is beam harden ing artifa ct from the interb lola spacer s, and the pedicl e screws and lucerne farmer ior fusion rods from L3 throug h L5. There is no eviden ce of loosen ing of the hardwa re. There is prior remova l of pedicl e screws at the S1 level. There is dextro curvat ure from L1 throug h L4, and levocu rvatur e at L4-L5. There is mild lucerne farmer ior listhe sis of L1 on L2 [...] Denys reed MD on 2022 3:[address] Rad[address], [address], 11/14/2023 20:28:43 Result Notes Documentation Provider Name and Address Organization Details Recorded Time Xr, Lumbosacral Spine, 2 Or 3 View : [address] [address] Patient Name: FRANSISCO SILVESTRE Patient : 1960 [...] By: Sharif Catalan MD E VELIZ MD [address] [place] [address], [phone], [facility] 12/31/2020 12:00:24 Xr, Lumbosacral Spine, 2 Or 3 View : [address] [address] Patient Name: FRANSISCO SILVESTRE Patient : 1960 [...] By: Sharif Catalan MD E VELIZ MD [address] [place] [address], [address], [facility] 03/04/2021 13:47:01 Xr, Lumbosacral Spine, 2 Or 3 View : [place] [address] Patient Name: FRANSISCO SILVESTRE Patient : 1960 [...] By: Sharif Catalan MD E VELIZ MD [address] [place] [address], [address], [facility] 04/03/2021 17:13:52 Xr, Lumbosacral Spine, 4 Or More View : [place] [address] Patient Name: FRANSISCO SILVESTRE Patient : 1960 [...] Interpreted By: Sharif Catalan MD LIA WELLS, MARKETING PRODUCTION COORDINATOR [address] [place] [address], [phone] 01/12/2023 15:34:52 Mri, Lumbar Spine, W/wo Contrast : [facility] [address] [place] [address] Patient Name: FRANSISCO SILVESTRE Patient : 1960 [...] After intravenous administration of 10 mL Gadavist ([facility] [address]-06), there is no abnormal enhancement in the [...] By: Evangelist Lazar MD LIA WELLS APRN [address] [place] [address], [phone], [facility] 01/17/2023 17:55:31 Mri, Lumbar Spine, W/o Contrast : [address] [address] Patient Name: FRANSISCO SILVESTRE Patient : 1960 [...] By: Evangelist Lazar MD E VELIZ MD [address] [place] [address], [address], [facility] 11/14/2023 20:28:44 Ct, Lumbar Spine, W/o Contrast : [facility] [address] [place] [address] Patient Name: FRANSISCO SILVESTRE Patient : 1960 [...] By: Evangelist Lazar MD E VELIZ MD [address] [place] [address], [address], [facility] 11/14/2023 20:28:43 Problems Name Problem SNOMED Code Status Onset Date Resolution Date Notes Provider Name and Address Organization Details Recorded Time 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 From Automated Load;Provi inna: Angie Smallwood;Stat us: Active Not Available [facility] 6 03:15:55 Gluteal tendiniti s 55317777 Active 2014 From Automated Load;Provi inna: Angie Smallwood;Stat us: Active Not Available [facility] 6 03:15:55 Spontaneo us rupture of flexor tendons 467406894 Active 2014 From Automated Load;Provi inna: Robert Wu;Stat us: Active Not Available [facility] 6 03:15:55 Shoulder joint pain 980806091 Active 2014 From Automated Load;Provi inna: Robert Wu;Stat us: Active Not Available [facility] 6 03:16:01 Partial thickness rotator cuff tear 551218633 Active 2015 From Automated Load;Provi inna: Robert Wu;Stat us: Active Not Available [facility] 6 03:15:55 Bite - wound 231897460 Active 2015 From Automated Load;Provi inna: Robert Wu;Stat us: Active Not Available [facility] 7 06:13:36 Celluliti s of finger 51457016 Active 2015 From Automated Load;Provi inna: Robert Wu;Stat us: Active Not Available [facility] 7 07:07:05 Idiopathi c aseptic necrosis of bone 368704745 Active 2015 From Automated Load;Provi inna: Ministerio Ross;St atus: Active Not Available [facility] 7 08:12:31 Problem Notes None recorded. Procedures Surgical History Date Name Laterality Status Provider Name and Address Organization Details Recorded Time 10/29/19 21 POSTERIOR LUMBAR INTERBODY FUSION, ADDITIONAL INTERSPACE (SURG) completed Maddie Denton [facility] 11/19/2020 13:18:57 04/18/20 17 Post-Op Staple Removal completed ADDY FLORES PA-C [address] [place] [address], [address], [facility] 04/18/2017 14:48:01 04/04/20 17 POSTERIOR LUMBAR INTERBODY FUSION, SINGLE INTERSPACE (SURG) completed Pam Espinoza [facility] 05/10/2017 13:56:43 Imaging Results None recorded. Procedure Notes None recorded. Medical Equipment None Reported. Allergies Allergen ID Allergen Name Allergen Category Reaction Reaction Severity Criticality Documentation Date Start Date Code Code System Note Provider Name and Address Organization Details Recorded Time 643260 Product containin g penicilli n (product) medicatio n Not available Not available Not available 09/15/20162014 88188 8001 SNOMED Comme nt: Creat ed By: Myke blanchard;Darwin augustine Date: 015 1:31: 15 PM; Not Available [facility] 6 07:51:09 Medications Name Sig Start Date [...] Details Last Updated DateTime 12/14/2020 175.26 cm [facility] 13:31:24 Date Recorded Body height Body mass index (BMI) Body weight Heart rate Systolic And Diastolic Provider Name and Address Organization Details Last Updated DateTime 12/26/2022 175.26 cm 38 kg/m2 428648.2 4 g 77 /min 116/61 mm[Hg] [facility] 12/26/2022 14:33:08 Date Recorded Body height Body mass index (BMI) Body weight Systolic And Diastolic Provider Name and Address Organization Details Last Updated DateTime 01/23/2023 175.26 cm 38 kg/m2 954929.24 g 122/72 mm[Hg] Caitlin Palmer [facility] 01/23/2023 10:02:09 Date Recorded Body height Body mass index (BMI) Body weight Heart rate Systolic And Diastolic Provider Name and Address Organization Details Last Updated DateTime 03/17/2021 175.26 cm 35.4 kg/m2 165650.1 7 g 85 /min 106/65 mm[Hg] [facility] 03/17/2021 14:30:35 Social History Question Answer Notes LastModified by Organizat ion Details LastModified Time Tobacco Smoking Status Current Every Day Smoker Guru Jaylinwliliam [facility] 12/11/2016 07:46:19 What Was The Date Of [...] ICD10 Code Diagnosis IMO Codes Diagnosis Note [id number] [place] [address] [place] [address] 12/11/2016 07:28:30 12/11/2016 08:44:29 Pain of multiple joints 25543129 M25.50 Chronic joint pains, for over 10 [...] 7.5 mg qid for the Back pains. [id number] ESPINOZA CRUZ MD RHEUMATOL OGY [address] [place] [address] 12/26/2016 14:41:40 12/26/2016 16:18:29 Undifferentiated inflammatory arthritis 595455272 M19.90 Negative RF and negative anti CCP abs.Modest elevation in ESR, and moderate elevation in CRP.Some erosive change sin the hands.I WANT TO START HIM WITH RELAFEN AT 750 MG , 2 PO QD FOR NOW AND SEE HOW HE DOES. HOLD OFF ON THE STEROIDS.I f he failed to help, will do trial of HCQ. [id number] ADDIE VELIZ MD [facility] [address] [place] [address] 03/06/2017 08:40:50 03/06/2017 09:45:36 Lumbar spondylosis 133688502 M47.467 [id number] ADDY FLORES PA-C [facility] [address] [place] [address] 04/18/2017 14:03:44 04/18/2017 16:04:23 Low back pain 294784614 M54.5 [id number] ADDIE VELIZ MD [facility] [address] [place] [address] 05/10/2017 13:51:16 05/10/2017 14:20:50 Lumbar radiculopathy 747261015 M54.16 [id number] ADDIE VELIZ MD [facility] [address] [place] [address] 07/10/2017 13:13:59 07/10/2017 13:53:41 Lumbar spondylosis 172300850 M47.017 [id number] ADDIE VELIZ MD [facility] [address] [place] [address] 06/17/2019 13:34:04 06/24/2019 11:29:14 Lumbar spondylosis 645891443 M47.818 [id number] ELADIO TANG PA-C [facility] [address] [place] [address] 07/08/2019 09:57:33 07/10/2019 15:42:32 Low back pain 157230985 M54.5 59-year-ol d who is s/p a [...] agrees with the plan as stated above. [id number] ADDIE VELIZ MD [facility] [address] [place] [address] 08/10/2020 08:38:30 08/11/2020 20:49:02 Lumbar spondylosis 971426170 M47.017 [id number] ADDIE VELIZ MD [facility] [address] [place] [address] 09/21/2020 13:31:27 09/23/2020 11:34:29 Lumbar spondylolisthesis 3265892132 72453 M43.16 [id number] ADDIE VELIZ MD [facility]OS[facility]G [facility] [address] [place] [address] 11/16/2020 14:59:09 11/19/2020 10:15:00 [id number] ADDIE VELIZ MD SURGERY SCHEDULE [address] [place] [address] 11/18/2020 09:49:55 11/23/2020 13:31:47 [id number] ADDIE VELIZ MD [facility] [address] [place] [address] 12/14/2020 13:16:14 12/15/2020 11:06:46 Lumbar spondylosis 261179802 M47.856 [id number] CIRO HERNANDEZ PA-C [facility] [address] [place] [address] 03/17/2021 13:35:21 03/18/2021 14:12:04 Lumbar spondylosis 451643424 M47.896 [id number] CECELIA WELLS APRN [facility] [address] [place] [address] 12/26/2022 13:54:52 12/28/2022 04:29:04 Lumbar radiculopathy 008777993 M54.16 [id number] ADDIE VELIZ MD [facility] [address] [place] [address] 01/23/2023 09:53:50 01/26/2023 13:00:16 Spinal stenosis of lumbar region 98840971 M48.062 [id number] ADDIE VELIZ MD [facility] [address] [place] [address] 10/09/2023 12:55:37 10/10/2023 05:26:07 Spinal stenosis of lumbar region 12245636 M48.062 Health Concerns Section Related Observation LastModified [...] (MEDICARE REPLACEMENT/A DVANTAGE - PPO) Fransisco Silvestre [id number] Fransisco Silvestre Notes Date Note Type Note [...] severe radicular leg pain. ADDIE VELIZ MD [address] [place] [address], [address], [facility] 12/14/2020 13:52:51 03/17/2021 text/html ROS as [...] radiation into his arms. CIRO HERNANDEZ PA-C [address] [place] [address], [address], [facility] 03/17/2021 14:47:34 12/26/2022 text/html Mr. Silvestre [...] apnea, and COPD. CECELIA WELLS, DAVID [address] [place], [address], [facility] 12/27/2022 08:35:34 01/23/2023 text/html Mr. Silvestre [...] for a while. ADDIE VELIZ MD [address] [place], [address], [facility] 01/23/2023 11:20:07 10/09/2023 text/html Status post [...] [address] Samira Garcia urologist at [facility]. ADDIE VELIZ MD [address] [place] [address], [address], [facility] 10/09/2023 13:36:04
== END 2025-08-24 23:59 | disposition home or self-care (01) ==
LOC: RT 13:55
PROVIDERS: PCP Nurse Practitioner Family; Visit Provider Nurse Practitioner
DX: I11.9 Hypertensive heart disease without heart failure (principal); I25.10 Atherosclerotic heart disease of native coronary artery without angina pectoris; J44.9 Chronic obstructive pulmonary disease, unspecified; E11.9 Type 2 diabetes mellitus without complications; E78.5 Hyperlipidemia, unspecified; I73.9 Peripheral vascular disease, unspecified; F17.200 Nicotine dependence, unspecified, uncomplicated; R93.1 Abnormal findings on diagnostic imaging of heart and coronary circulation
CPT/HCPCS: 93306

== ENCOUNTER 2025-09-07 13:42 | Outpatient (CLI) | payer MEDICARE, SELFPAY ==
[2025-09-07 14:18] LABS: Hematocrit 36.0 % (42.0-52.0); Hemoglobin 12.0 g/dL (14.1-18.0); Immature Granulocytes % 0.5 %; Mean Corpuscular HGB Conc 33.3 g/dL (31.8-35.4); Mean Corpuscular Hemoglobin 30.6 pg (27.0-31.2); Mean Corpuscular Volume 91.8 fl (80-94); Nucleated Red Blood Cells % 0 %; Platelet Count 172 K/mm3 (142-424); Red Blood Count 3.92 M/mm3 (4.60-6.20); Red Cell Distribution Width-SD 45.7 fL; White Blood Count 9.7 K/mm3 (4.8-10.8)
[2025-09-07 14:45] LABS: Blood Urea Nitrogen 20 mg/dl (9-20); Creatinine,Serum 1.10 mg/dl (0.66-1.25); Estimated Glomerular Filt Rate 68 ml/min (>60); GFR (African American) 82 ML/MIN (>60)
[2025-09-07 14:46] LABS: Alanine Aminotransferase 16 U/L (12-78); Alkaline Phosphatase 96 U/L (38-126); Aspartate Amino Transferase 22 U/L (17-59); Bilirubin,Direct 0.1 mg/dl (0.0-0.4); Bilirubin,Indirect 0.2 mg/dL (0.0-0.9); Bilirubin,Total 0.3 mg/dl (0.2-1.3); Bilirubin,Unconjugated 0.2 mg/dL (0.0-1.1); Calcium 8.7 mg/dl (8.4-10.2); Carbon Dioxide 27 mmol/L (22.0-30.0); Cholesterol 153 mg/dl (140-200); Glucose 76 mg/dl (74-100); Total Protein,Serum 7.2 g/dl (6.3-8.2); Triglycerides 164 mg/dl (30-150)
[2025-09-07 14:47] LABS: HDL Cholesterol 35 mg/dl (40-60)
[2025-09-07 15:01] LABS: Free T4 (Free Thyroxine) 1.64 ng/dl (0.78-2.19)
[2025-09-07 15:08] LABS: Magnesium 0.9 mg/dl (1.6-2.3)
[2025-09-07 15:20] LABS: Thyroid Stimulating Hormone 1.81 uIU/mL (0.465-4.68)
[2025-09-07 15:47] LABS: Albumin Level 4.0 g/dl (3.5-5.0); Anion Gap 9.9 mEq/L (5-15); Chloride 104 mmol/L (98-107); Potassium 3.9 mmoL/L (3.5-5.1); Sodium 137 mmol/L (136-145)
[2025-09-07 15:58] LABS: Hemoglobin A1C 6.3 % (4.0-6.0)
== END 2025-09-07 23:59 | disposition home or self-care (01) ==
LOC: LAB 13:43
PROVIDERS: PCP Nurse Practitioner Family; Visit Provider Internal Medicine
DX: I25.10 Atherosclerotic heart disease of native coronary artery without angina pectoris (principal); I10 Essential (primary) hypertension; E78.5 Hyperlipidemia, unspecified
CPT/HCPCS: 36415; 80048; 80061; 80076; 83036; 83735; 84439; 84443; 85025